=== PATIENT | female | born 2000 | race Caucasian/White ===

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

== ENCOUNTER 2021-07-15 22:13 | Emergency (ER) | payer OTHER ==
--- OUTSIDE RECORDS SUMMARY | 2021-07-15 22:20 | XMS REPORT | Continuity of Care Document ---
:2000 Author Organization [facility] t Address [address] [place] [address] Care Team Providers Name Role Phone Bernabe TOVAR Attending Clinician Unavailable Demond Fermin DO Attending Clinician Guy RICE R Attending Clinician Doctor Unassigned, Name Attending Clinician Unavailable Visit, Nurse Attending Clinician Unavailable Satinder WELCHP C Attending Clinician SATINDER C Attending Clinician Unavailable Manuelito MENDEZ Attending Clinician Faculty, Rmchp Mfm Attending Clinician Unavailable Aishwarya MENDEZ M Attending Clinician Ultrasound Attending Clinician Unavailable Lab Attending Clinician Unavailable Manuelito MENDEZ Admitting Clinician Payers Payer Name Policy Type Policy Number Effective Date Expiration Date Belinda LOVELL [id number] 2019 HEALTH 00:00:00 Problems Condition Condition Condition Status Onset Resolution Last Treating Co mments Source Name Details Category Date Date Treatment Clinician Date Disease Active U nivers care and care and 5-05 ity of examin[place] examin[place] 00 Medical immediatel immediatel Br anch y after y after delivery delivery Obesity Obesity Disease Active Univers (BMI (BMI 4-11 ity of 30-39.9) 30-39.9) 00:00: [place] 00 Medical Branch 37 weeks 37 weeks Disease Active 2020-0 Unive rs gestation gestation 4-11 ity of of of 00:00: [place] 00 [facility] Chlamydia Chlamydia Disease Active 2020-0 Overview: Univers infection infection 2-19 Pending ity of during during 00:00: MICHAEL -neg [place] 00 [facility] Gonorrhea Gonorrhea Disease Active 2020-0 Overview: Univers in in 2-19 MCIHAEL at ity of 00:[place]: [place] 00 [place] Medical -neg Branch Susceptibl Susceptibl Disease Active 2020-0 Overview : Univers e to e to 2-19 Address ity of varicella varicella 00:00: [place] (non-immun (non-immun 00 Me dical e), e), Branch currently currently Supervisio Supervisio Disease Active 2020-0 U nivers n of n of 2-18 ity of high-risk high-risk [place] [facility] with with Branch insufficie insufficie nt nt care care Over Over Disease Active 2020-0 Univers weight weight 2-18 ity of 00:00: [place] [facility] Multiparit Multiparit Disease Active 2020-0 U nivers y y 2-18 ity of 00:00: [place] [facility] History of History of Disease Active 2020-0 Overview : Univers bipolar bipolar 2-18 Not on ity of disorder disorder 00:00: meds x1 [place] year [facility] Branch History of History of Disease Active 2020-0 Overview : Univers depression depression 2-18 Not on it y of 00:00: meds x1 [place] year Medical Branch History of History of Disease Active 2020-0 Overview : Univers anxiety anxiety 2-18 Not on ity of 00:00: meds x1 [place] year [facility] Branch History of History of Disease Active 2020-0 Overview : Univers 2-18 Reports ity of delivery [place] 00:[place] 00 at [facility] 31weeks Branch ROR requested History of History of Disease Active 2020-0 U nivers ADHD ADHD 2-18 ity of 00:00: [place] [facility] Family Family Disease Active 2020-0 Overview: Univer s history of history of 2-18 Reports i ty of autism autism 00:00: cousins [place] [facility] History of History of Disease Active 2020-0 Overview : Univers polyhydram polyhydram 2-18 Reports i ty of nios nios 00:00: delivery [place] 00 at 31 Medical weeks Branch Allergies, Adverse Reactions, Alerts Allergy Allergy Status Severity Reaction(s) Onset Inactive Treating Comm ents Source Name Type Date Date Clinician Bee Propensi Active Anaphylaxis Uni vers Sting / ty to 2-18 ity of Venom adverse 00:00: [place] reaction 00 Medical s Branch BEE DRUG Active Anaphylaxis Unive rs STING / INGREDI -18 ity of VENOM 00:00: [place] 00 Medical Branch Milk Propensi Active Other - See Uni vers ty to comments 01-02 ity of adverse 00:00: [place] reaction 00 Medical s to Branch drug Soy Propensi Active Unknown - Unive rs ty to See comments 01-02 ity of adverse 00:00: [place] reaction 00 Medical s to Branch drug MILK DRUG Active Other-Cmnt Univer s INGREDI 01-02 ity of 00:00: [place] 00 Medical Branch SOY DRUG Active Unknown-Cmnt Univ ers INGREDI 01-02 ity of 00:00: [place] 00 [facility] Social History Social Habit Start Date Stop Date Quantity Comments Source ASSERTION 2019-03-20 University of 00:00:00 [facility] Exposure to Not sure [facility] SARS-CoV-2 [facility] (event) [place] Tobacco use and 2020-01-07 2020-01-07 Never used Universit y of exposure 00:00:00 00:00:00 [facility] Alcohol intake 2020-01-07 2020-01-07 Ex-drinker University of 00:00:00 00:00:00 (finding) [facility] History SDOH 2019-11-22 2019-11-22 11 University o f Education 00:00:00 00:00:00 [facility] Tobacco Comment 2013-06-10 2013-06-10 mom smokes Universit y of 00:00:00 00:00:00 outside [facility] Sex Assigned At [birth year] Universit y of 00:00:00 00:00:00 [facility] Smoking Status Start Date Stop Date Source Never smoker [facility] Medications Ordered Filled Start Stop Current Ordering Indication Dosage Frequency Signature Comments Components Source Medication Medication Date Date Medication? Clinician (SIG) Name Name etonogestre 2019- No [id number] 68mg Univers l 01-06- ity of (NEXPLANON) 16:00: 14:55 [place] implant 68 00 :00 Medical mg [place] etonogestre 2019- No [id number] 68mg 68 mg, Univers l 01-06- Subdermal, ity of (NEXPLANON) 16:00: 14:55 ONCE NOW, [place] implant 68 00 :00 1 dose, Medica l mg [place] [facility] 01/07/20 at 1100, Routine
Use approved by: MONOGRAM TECHNICIAN etonogestre 2019- No [id number] 68mg Univers l 01-06 ity of (NEXPLANON) 16:00: 14:55 [place] implant 68 00 :00 Medical [facility] etonogestre 2019- No [id number] 68mg 68 mg, Univers l 01-06 Subdermal, ity of (NEXPLANON) 16:00: 14:55 ONCE NOW, [place] implant 68 00 :00 1 dose, Medica l mg [place] [facility] 01/07/20 at 1100, Routine
Use approved by: MONOGRAM TECHNICIAN lisdexamfet 2020- No 50mg Take 50 mg Univers amine 11-22-12 by mouth ity of (VYVANSE) 12:42: 00:00 every [place] 50 mg 10 :00 morning. Medical capsule [place] ARIPiprazol 2019- No 2mg Take 2 mg Univers e (ABILIFY) 11-22-12 by mouth ity of 2 mg tablet 12:42: 00:00 daily. [place] as 10 :00 Medical [place] human 2019- Yes .5mL 0.5 mL, Univers papillomav 4-12 Intramuscu ity of vac,9-migel(P 12:26: lar, [place] F) 12 ONCE-PRIOR Medical (GARDASIL-9 TO [place] ) syringe DISCHARGE, 0.5 mL 1 dose, Starting 11/23/19 at 0726, Until Discontinu ed, Routine, Give vaccine prior to discharge varicella 2019- 2020- No .5mL 0.5 mL, Univ ers virus 11-22 04-13 Subcutaneo ity of vaccine 12:26: 16:35 , [place] live 12 :00 ONCE-PRIOR Medical (VARIVAX TO Branch (PF)) DISCHARGE, injection 1 dose, 0.5 mL Starting 11/23/19 at 0726, Until Discontinu ed, Routine, Give vaccine prior to discharge rho(D) 2020-0 Yes 300ug 300 mcg, Univer s immune 4-12 Intramuscu ity of globulin 03:56: lar, ONCE, [place] as (RHOGAM) 35 For 1 Medical syringe 300 dose, Branch mcg Conditiona l, Routine simethicone 2019-0 Yes 160mg 160 mg, Un dustin (GAS RELIEF 4-12 Oral, ity of (SIMETHICON 03:56: PC+HSPRN, [place] E)) 28 Starting Medical chewable Sat Branch tablet 160 11/22/19 at mg 2256, Until Discontinu ed, Routine, Gas HYDROcodone 2020-0 Yes 2{tbl} 2 tablet, Univers -acetaminop 4-12 Oral, ity of hen (NORCO 03:56: Q6HPRN, [place] 5) 5-325 mg 27 Starting Medi ash[place] tablet 2 Sat Branch tablet 11/22/19 at 2256, Until Discontinu ed, Routine, Pain (scale 7-10), If uncontroll ed by Ibuprofen HYDROcodone 2020-0 Yes 1{tbl} 1 tablet, Univers -acetaminop 4-12 Oral, ity of hen (NORCO 03:56: Q6HPRN, [place] 5) 5-325 mg 27 Starting Medi ash[place] tablet 1 Sat Branch tablet 11/22/19 at 2256, Until Discontinu ed, Routine, Pain (scale 4-6), If uncontroll ed by Ibuprofen ibuprofen 2020-0 Yes 600mg 600 mg, Univ ers (IBU) 4-12 Oral, ity of tablet 600 03:56: Q6HPRN, [place] mg 27 Starting Medical Sat Branch 11/22/19 at 2256, Until Discontinu ed, Routine, Pain (scale 1-3) diphenhydrA 2019-0 Yes 25mg 25 mg, IV U nivers MINE-0.9 % 4-12 Piggyback, ity of sod.chlr 03:56: Administer [place] (BENADRYL) 27 over 30 Medica l 25 mg/50 mL Minutes, Bran ch piggyback Q6HPRN, 1 25 mg dose, Starting 11/22/19 at 2256, Until Discontinu ed, Routine, Itching diphenhydrA 2020-0 Yes 25mg 25 mg, Univ ers MINE 4-12 Oral, ity of (BENADRYL) 03:56: Q6HPRN, [place] tablet 25 27 Starting Medica l mg Sat Branch 11/22/19 at 2256, Until Discontinu ed, Routine, Sleep, Itching ondansetron 2020-0 Yes 4mg 4 mg, Slow Univers (ZOFRAN 4-12 IV Push, ity of (PF)) 03:56: Q8HPRN, [place] injection 4 27 Starting Medi ashley mg Sat Branch 11/22/19 at 2256, Until Discontinu ed, Routine, Nausea and Vomiting (N/V) bisacodyL 2020-0 Yes 10mg 10 mg, Univer s (DULCOLAX) 4-12 Rectal, ity of suppository 03:56: QDAILYPRN, [place] 10 mg 27 Starting Medical Sat Branch 11/22/19 at 2256, Until Discontinu ed, Routine, Constipati on docusate 2020-0 Yes 240mg 240 mg, Unive rs calcium 4-12 Oral, ity of (SURFAK) 03:56: QDAILYPRN, [place] capsule 240 27 Starting Medi ashley mg Sat Branch 11/22/19 at 2256, Until Discontinu ed, Routine, Constipati on magnesium 2020-0 Yes 30mL 30 mL, Univer s hydroxide 4-12 Oral, ity of (MILK OF 03:56: QDAILYPRN, [place] MAGNESIA) 27 Starting Medica l 400 mg/5 mL [facility] Branch suspension 11/22/19 at 30 mL 2256, Until Discontinu ed, Routine, Constipati on naloxone 2020-0 2020- No .4mg 0.4 mg, Unive rs (NARCAN) -12 04-14 Slow IV ity of injection 00:13: 00:12 Push, PRN [place] 0.4 mg 34 :34 - SEE Medical INSTRUCTIO Branch NS, Starting 11/22/19 at 1913, Until 11/24/19 at 1912, Routine, Analgesia Recovery 2020-0 Yes [id number] 1{tbl} Take 1 Univers vitamin 4-12 tablet by ity of w/FA tablet 00:00: mouth [place] 00 daily. Medical Branch docusate 2020-0 Yes [id number] 240mg Take 1 U nivers calcium 240 4-12 capsule by it y of mg capsule 00:00: mouth once [place] 00 daily as Medical needed for Branch Constipati on. ferrous 2020-0 Yes [id number] 325mg Take 1 Un dustin sulfate 325 4-12 tablet by ity of mg (65 mg 00:00: mouth 2 [place] iron) 00 (two) Medical tablet times Branch daily. ibuprofen 2020-0 Yes [id number] 600mg Take 1 Univers 600 mg 4-12 tablet by ity of tablet 00:00: mouth [place] 00 every 6 Medical (six) Branch hours as needed (Pain). Take with food or milk. 2020-0 Yes [id number] 1{tbl} Take 1 Univers vitamin 4-12 tablet by ity of w/FA tablet 00:00: mouth [place] 00 daily. Medical Branch docusate 2020-0 Yes [id number] 240mg Take 1 U nivers calcium 240 4-12 capsule by it y of mg capsule 00:00: mouth once [place] 00 daily as Medical needed for Branch Constipati on. ferrous 2020-0 Yes [id number] 325mg Take 1 Un dustin sulfate 325 4-12 tablet by ity of mg (65 mg 00:00: mouth 2 [place] iron) 00 (two) Medical tablet times Branch daily. ibuprofen 2020-0 Yes [id number] 600mg Take 1 Univers 600 mg 4-12 tablet by ity of tablet 00:00: mouth [place] 00 every 6 Medical (six) Branch hours as needed (Pain). Take with food or milk. 2020-0 Yes [id number] 1{tbl} Take 1 Univers vitamin 4-12 tablet by ity of w/FA tablet 00:00: mouth [place] 00 daily. Medical Branch docusate 2020-0 Yes [id number] 240mg Take 1 U nivers calcium 240 4-12 capsule by it y of mg capsule 00:00: mouth once [place] 00 daily as Medical needed for Branch Constipati on. ferrous 2020-0 Yes [id number] 325mg Take 1 Un dustin sulfate 325 4-12 tablet by ity of mg (65 mg 00:00: mouth 2 [place] iron) 00 (two) Medical tablet times Branch daily. ibuprofen 2020-0 Yes [id number] 600mg Take 1 Univers 600 mg 4-12 tablet by ity of tablet 00:00: mouth [place] 00 every 6 Medical (six) Branch hours as needed (Pain). Take with food or milk. 2020-0 Yes [id number] 1{tbl} Take 1 Univers vitamin 4-12 tablet by ity of w/FA tablet 00:00: mouth [place] 00 daily. Medical Branch docusate 2020-0 Yes [id number] 240mg Take 1 U nivers calcium 240 4-12 capsule by it y of mg capsule 00:00: mouth once [place] 00 daily as Medical needed for Branch Constipati on. ferrous 2020-0 Yes [id number] 325mg Take 1 Un dustin sulfate 325 4-12 tablet by ity of mg (65 mg 00:00: mouth 2 [place] iron) 00 (two) Medical tablet times Branch daily. ibuprofen 2020-0 Yes [id number] 600mg Take 1 Univers 600 mg 4-12 tablet by ity of tablet 00:00: mouth [place] 00 every 6 Medical (six) Branch hours as needed (Pain). Take with food or milk. 2020-0 Yes [id number] 1{tbl} Take 1 Univers vitamin 4-12 tablet by ity of w/FA tablet 00:00: mouth [place] 00 daily. Medical Branch docusate 2020-0 Yes [id number] 240mg Take 1 U nivers calcium 240 4-12 capsule by it y of mg capsule 00:00: mouth once [place] 00 daily as Medical needed for Branch Constipati on. ferrous 2020-0 Yes [id number] 325mg Take 1 Un dustin sulfate 325 4-12 tablet by ity of mg (65 mg 00:00: mouth 2 [place] iron) 00 (two) Medical tablet times Branch daily. ibuprofen 2020-0 Yes [id number] 600mg Take 1 Univers 600 mg 4-12 tablet by ity of tablet 00:00: mouth [place] 00 every 6 Medical (six) Branch hours as needed (Pain). Take with food or milk. 2020-0 Yes [id number] 1{tbl} Take 1 Univers vitamin 4-12 tablet by ity of w/FA tablet 00:00: mouth [place] 00 daily. Medical Branch docusate 2020-0 Yes [id number] 240mg Take 1 U nivers calcium 240 4-12 capsule by it y of mg capsule 00:00: mouth once [place] 00 daily as Medical needed for Branch Constipati on. ferrous 2020-0 Yes [id number] 325mg Take 1 Un dustin sulfate 325 4-12 tablet by ity of mg (65 mg 00:00: mouth 2 [place] iron) 00 (two) Medical tablet times Branch daily. ibuprofen 2020-0 Yes [id number] 600mg Take 1 Univers 600 mg 4-12 tablet by ity of tablet 00:00: mouth [place] 00 every 6 Medical (six) Branch hours as needed (Pain). Take with food or milk. 2020-0 Yes [id number] 1{tbl} Take 1 Univers vitamin 4-12 tablet by ity of w/FA tablet 00:00: mouth [place] 00 daily. Medical Branch docusate 2020-0 Yes [id number] 240mg Take 1 U nivers calcium 240 4-12 capsule by it y of mg capsule 00:00: mouth once [place] 00 daily as Medical needed for Branch Constipati on. ferrous 2020-0 Yes [id number] 325mg Take 1 Un dustin sulfate 325 4-12 tablet by ity of mg (65 mg 00:00: mouth 2 [place] iron) 00 (two) Medical tablet times Branch daily. ibuprofen 2020-0 Yes [id number] 600mg Take 1 Univers 600 mg 4-12 tablet by ity of tablet 00:00: mouth [place] 00 every 6 Medical (six) Branch hours as needed (Pain). Take with food or milk. HYDROcodone 2020- No [id number] 1{tbl} Take 1 Univers -acetaminop 4-12 04-20 tablet by it y of hen 5-325 00:00: 04:59 mouth [place] mg tablet 00 :00 every 6 Medical (six) Branch hours as needed (for pain) for up to 7 days. Do not exceed 3 grams of acetaminop hen in 24 hours. HYDROcodone 2019- 2020- No [id number] 1{tbl} Take 1 Univers -acetaminop 4-12 04-20 tablet by it y of hen 5-325 00:00: 04:59 mouth [place] mg tablet 00 :00 every 6 Medical (six) Branch hours as needed (for pain) for up to 7 days. Do not exceed 3 grams of acetaminop hen in 24 hours. lactated 2020- No 1000mL at 125 Univ ers ringers IV 4-11 04-12 mL/hr, ity of infusion 23:00: 03:56 1,000 mL, [place] 1,000 mL 00 :36 IV Medical Infusion, Branch CONTINUOUS , Starting 11/22/19 at 1800, Until 11/22/19 at 2256, Routine sodium 2019-0 2020- No 30mL 30 mL, Univers citrate-cit 11-21 Oral, ity of ramila acid 22:47: 22:57 PRE-PROCED [place] (BICITRA) 25 :00 URE ONCE, Medic al 500-334 1 dose, Branch mg/5 mL Starting solution 30 Sat mL 11/22/19 at 1747, Until Discontinu ed, Routine, Surgery ceFAZolin No 2000mg 2 g (2,000 Univers in dextrose 11-21 mg), IV ity of (iso-os) 22:47: 22:57 Piggyback, [place] (ANCEF) 2 25 :00 O.R. Medical gram/100 mL HOLDING Branc h Piggyback 2 ONCE, 1 g dose, Starting 11/22/19 at 1747, Until Discontinu ed, 100 mL
Reas on for Anti-Infec tive: Surgical Prophylaxi s
Surgi ashley Prophylaxi s: MONOGRAM TECHNICIAN
Duration of therapy: within 24 hours of surgery lactated 2019-0 2020- No 500mL at 999 Unive rs ringers IV 11-21-11 mL/hr, 500 it y of infusion 20:00: 20:40 mL, IV [place] 500 mL 00 :00 Infusion, Medical ONCE, 1 Branch dose, 11/22/19 at 1500, Routine D5W-LR IV 2019-0 2020- No 1000mL at 125 Uni vers infusion 11-21 04-12 mL/hr, IV ity o f 1,000 mL 19:00: 03:56 Infusion, [place] 00 :36 CONTINUOUS Medical , Starting Branch 11/22/19 at 1400, Until 11/22/19 at 2256, Routine sodium 2019-0 2020- No 30mL 30 mL, Univers citrate-cit 11-21 Oral, ity of ramila acid 18:50: 21:27 PRE-PROCED [place] (BICITRA) 33 :00 URE ONCE, Medic al 500-334 1 dose, Branch mg/5 mL Starting solution 30 Sat mL 11/22/19 at 1350, Until 11/22/19 at 1627, Routine, Surgery/Pr ocedure LR 1000 mL 2020-0 2020- No 2mU/min 2-40 Uni vers + oxytocin 11-21 04-12 zhanna-unit it y of 20 units IV 18:49: 03:56 s/min [place] Solution 40 :36 (6-120 Medical mL/hr), IV Branch Infusion, TITRATE, Oxytocin Induction / Augmentati on of Labor, Starting 11/22/19 at 1349
In fuse IV through a controlled infusion pump at a proximal port on the peripheral IV line.&nbsp ; Sta rt at 2 zhanna-unit s/min and increase by 2 zhanna-unit s/min every 20 minutes according to oxytocin policy 7.11.52.&n bsp; Going over 20 zhanna-unit s/min requires faculty approval.& nbsp;&nbsp ;Max 40 zhanna-unit s/min.
2020-0 Yes 1{tbl} Take 1 Unive rs Vit-Iron 3-02 tablet by ity of Fumarate-FA 00:00: mouth [place] (RIGHT STEP 00 daily. Medica l Branch VITAMINS) 27 mg iron- 0.8 mg per tablet ferrous 2020-0 Yes 325mg Take 1 Univers sulfate 325 3-02 tablet by ity of mg (65 mg 00:00: mouth [place] iron) 00 daily. Medical tablet Branch 2020-0 Yes 1{tbl} Take 1 Unive rs Vit-Iron 3-02 tablet by ity of Fumarate-FA 00:00: mouth [place] (RIGHT STEP 00 daily. Medica l Branch VITAMINS) 27 mg iron- 0.8 mg per tablet ferrous 2020-0 Yes 325mg Take 1 Univers sulfate 325 3-02 tablet by ity of mg (65 mg 00:00: mouth [place] iron) 00 daily. Medical tablet Branch 2020-0 Yes 1{tbl} Take 1 Unive rs Vit-Iron 3-02 tablet by ity of Fumarate-FA 00:00: mouth [place] (RIGHT STEP 00 daily. Medica l Branch VITAMINS) 27 mg iron- 0.8 mg per tablet ferrous 2020-0 Yes 325mg Take 1 Univers sulfate 325 3-02 tablet by ity of mg (65 mg 00:00: mouth [place] iron) 00 daily. Medical tablet Branch 2020-0 Yes 1{tbl} Take 1 Unive rs Vit-Iron 3-02 tablet by ity of Fumarate-FA 00:00: mouth [place] (RIGHT STEP 00 daily. Medica l [facility] Branch VITAMINS) 27 mg iron- 0.8 mg per tablet ferrous 2020-0 Yes 325mg Take 1 Univers sulfate 325 3-02 tablet by ity of mg (65 mg 00:00: mouth [place] iron) 00 daily. Medical tablet Branch 2020-0 Yes 1{tbl} Take 1 Unive rs Vit-Iron 3-02 tablet by ity of Fumarate-FA 00:00: mouth [place] (RIGHT STEP 00 daily. Medica l [facility] Branch VITAMINS) 27 mg iron- 0.8 mg per tablet ferrous 2020-0 Yes 325mg Take 1 Univers sulfate 325 3-02 tablet by ity of mg (65 mg 00:00: mouth [place] iron) 00 daily. Medical tablet Branch 2020-0 Yes 1{tbl} Take 1 Unive rs Vit-Iron 3-02 tablet by ity of Fumarate-FA 00:00: mouth [place] (RIGHT STEP 00 daily. Medica l [facility] Branch VITAMINS) 27 mg iron- 0.8 mg per tablet ferrous 2020-0 Yes 325mg Take 1 Univers sulfate 325 3-02 tablet by ity of mg (65 mg 00:00: mouth [place] iron) 00 daily. Medical tablet Branch 2020-0 Yes 1{tbl} Take 1 Unive rs Vit-Iron 3-02 tablet by ity of Fumarate-FA 00:00: mouth [place] (RIGHT STEP 00 daily. Medica l Branch VITAMINS) 27 mg iron- 0.8 mg per tablet ferrous 2020-0 Yes 325mg Take 1 Univers sulfate 325 3-02 tablet by ity of mg (65 mg 00:00: mouth [place] iron) 00 daily. Medical tablet Branch 2020-0 Yes 1{tbl} Take 1 Unive rs Vit-Iron 3-02 tablet by ity of Fumarate-FA 00:00: mouth [place] (RIGHT STEP 00 daily. Medica l Branch VITAMINS) 27 mg iron- 0.8 mg per tablet ferrous 2020-0 Yes 325mg Take 1 Univers sulfate 325 3-02 tablet by ity of mg (65 mg 00:00: mouth [place] iron) 00 daily. Medical tablet Branch Yes 1{tbl} Take 1 Unive rs Vit-Iron 3-02 tablet by ity of Fumarate-FA 00:00: mouth [place] (RIGHT STEP 00 daily. Medica l Branch VITAMINS) 27 mg iron- 0.8 mg per tablet ferrous Yes 325mg Take 1 Univers sulfate 325 3-02 tablet by ity of mg (65 mg 00:00: mouth [place] iron) 00 daily. Medical tablet Branch 2020- No 1{tbl} Take 1 Univ ers Vit-Iron 3-02 04-12 tablet by ity o f Fumarate-FA 00:00: 00:00 mouth [place] (RIGHT STEP 00 :00 daily. Medica l Branch VITAMINS) 27 mg iron- 0.8 mg per tablet ferrous 2019- No 325mg Take 1 Univer s sulfate 325 3-02 04-12 tablet by it y of mg (65 mg 00:00: 00:00 mouth [place] iron) 00 :00 daily. Medical tablet Branch cefTRIAXone 2019- No 250mg Univ ers (ROCEPHIN) 2-02 10-20 ity of injection 17:00: 15:52 [place] 250 mg 00 :00 Medical Branch cefTRIAXone 2019- No 250mg 250 mg, U nivers (ROCEPHIN) 10-02- Intramuscu it y of injection 17:00: 15:52 lar, ONCE, [place] 250 mg 00 :00 1 dose, Medical [place] Branch 10/02/19 at 1100, GILBERT
Re ason for Anti-Infec tive: Documented Infection< br>Documen gianna Infection Site: Other
O ther site: vagina
Duration of Therapy: Other (see Comments) azithromyci 2019- No [id number] 1000mg Take 2 Univers n 500 mg 2-19 -20 tablets by ity of tablet 00:00: 05:59 mouth once [place] 00 :00 now for 1 Medical dose. Branch azithromyci 2020- No [id number] 1000mg Take 2 Univers n 500 mg 2-19 -20 tablets by ity of tablet 00:00: 05:59 mouth once [place] 00 :00 now for 1 Medical dose. Branch ARIPiprazol Yes 2mg Take 2 mg U nivers e (ABILIFY) 2-18 by mouth ity of 2 mg tablet 19:58: daily. [place] [address] Medical Branch lisdexamfet 2020-0 Yes 50mg Take 50 mg Univers amine 2-18 by mouth ity of (VYVANSE) 19:58: every [place] 50 mg 26 morning. Medical capsule Branch ARIPiprazol 2020-0 Yes 2mg Take 2 mg U nivers e (ABILIFY) 2-18 by mouth ity of 2 mg tablet 19:58: daily. [place] [address] Medical Branch lisdexamfet 2020-0 Yes 50mg Take 50 mg Univers amine 2-18 by mouth ity of (VYVANSE) 19:58: every [place] 50 mg 26 morning. Medical capsule Branch ARIPiprazol 2020-0 Yes 2mg Take 2 mg U nivers e (ABILIFY) 2-18 by mouth ity of 2 mg tablet 19:58: daily. [address] Branch lisdexamfet 2020-0 Yes 50mg Take 50 mg Univers amine 2-18 by mouth ity of (VYVANSE) 19:58: every [place] 50 mg 26 morning. Medical capsule Branch ARIPiprazol 2020-0 Yes 2mg Take 2 mg U nivers e (ABILIFY) 2-18 by mouth ity of 2 mg tablet 19:58: daily. [address] Branch lisdexamfet 2020-0 Yes 50mg Take 50 mg Univers amine 2-18 by mouth ity of (VYVANSE) 19:58: every [place] 50 mg 26 morning. Medical capsule Branch ARIPiprazol 2020-0 Yes 2mg Take 2 mg U nivers e (ABILIFY) 2-18 by mouth ity of 2 mg tablet 19:58: daily. [address] Branch lisdexamfet 2020-0 Yes 50mg Take 50 mg Univers amine 2-18 by mouth ity of (VYVANSE) 19:58: every [place] 50 mg 26 morning. Medical capsule Branch ARIPiprazol 2020-0 Yes 2mg Take 2 mg U nivers e (ABILIFY) 2-18 by mouth ity of 2 mg tablet 19:58: daily. [place] 26 Medical Branch lisdexamfet 2020-0 Yes 50mg Take 50 mg Univers amine 2-18 by mouth ity of (VYVANSE) 19:58: every [place] 50 mg 26 morning. Medical capsule Branch ARIPiprazol 2020-0 Yes 2mg Take 2 mg U nivers e (ABILIFY) 2-18 by mouth ity of 2 mg tablet 19:58: daily. [address] Branch lisdexamfet 2020-0 Yes 50mg Take 50 mg Univers amine 2-18 by mouth ity of (VYVANSE) 19:58: every [place] 50 mg 26 morning. Medical capsule Branch ARIPiprazol 2020-0 Yes 2mg Take 2 mg U nivers e (ABILIFY) 2-18 by mouth ity of 2 mg tablet 19:58: daily. [address] Branch lisdexamfet 2020-0 Yes 50mg Take 50 mg Univers amine 2-18 by mouth ity of (VYVANSE) 19:58: every [place] 50 mg 26 morning. Medical capsule Branch ARIPiprazol 2020-0 Yes 2mg Take 2 mg U nivers e (ABILIFY) 2-18 by mouth ity of 2 mg tablet 19:58: daily. [address] Branch lisdexamfet 2019-0 Yes 50mg Take 50 mg Univers amine 2-18 by mouth ity of (VYVANSE) 19:58: every [place] 50 mg 26 morning. Medical capsule Branch ARIPiprazol 2020-0 Yes 2mg Take 2 mg U nivers e (ABILIFY) 2-18 by mouth ity of 2 mg tablet 19:58: daily. [address] Branch lisdexamfet 2020-0 Yes 50mg Take 50 mg Univers amine 2-18 by mouth ity of (VYVANSE) 19:58: every [place] 50 mg 26 morning. Medical capsule Branch ARIPiprazol 2020-0 Yes 2mg Take 2 mg U nivers e (ABILIFY) 2-18 by mouth ity of 2 mg tablet 19:58: daily. [address] Branch lisdexamfet 2020-0 Yes 50mg Take 50 mg Univers amine 2-18 by mouth ity of (VYVANSE) 19:58: every [place] 50 mg 26 morning. Medical capsule Branch ARIPiprazol 2020-0 Yes 2mg Take 2 mg U nivers e (ABILIFY) 2-18 by mouth ity of 2 mg tablet 19:58: daily. [place] [address] Medical Branch lisdexamfet 2020-0 Yes 50mg Take 50 mg Univers amine 2-18 by mouth ity of (VYVANSE) 19:58: every [place] 50 mg 26 morning. Medical capsule Branch ARIPiprazol 2020-0 Yes 2mg Take 2 mg U nivers e (ABILIFY) 2-18 by mouth ity of 2 mg tablet 19:58: daily. [place] [address] Medical Branch lisdexamfet 2020-0 Yes 50mg Take 50 mg Univers amine 2-18 by mouth ity of (VYVANSE) 19:58: every [place] 50 mg 26 morning. Medical capsule Branch ARIPiprazol 2020-0 Yes 2mg Take 2 mg U nivers e (ABILIFY) 2-18 by mouth ity of 2 mg tablet 19:58: daily. [address] Branch lisdexamfet 2020-0 Yes 50mg Take 50 mg Univers amine 2-18 by mouth ity of (VYVANSE) 19:58: every [place] 50 mg 26 morning. Medical capsule Branch ARIPiprazol 2020-0 Yes 2mg Take 2 mg U nivers e (ABILIFY) 2-18 by mouth ity of 2 mg tablet 19:58: daily. [address] lisdexamfet 2020-0 Yes 50mg Take 50 mg Univers amine 2-18 by mouth ity of (VYVANSE) 19:58: every [place] 50 mg 26 morning. Medical capsule Branch ARIPiprazol 2020-0 Yes 2mg Take 2 mg U nivers e (ABILIFY) 2-18 by mouth ity of 2 mg tablet 19:58: daily. [address] Branch lisdexamfet 2020-0 Yes 50mg Take 50 mg Univers amine 2-18 by mouth ity of (VYVANSE) 19:58: every [place] 50 mg 26 morning. Medical capsule Branch ARIPiprazol 2020-0 Yes 2mg Take 2 mg U nivers e (ABILIFY) 2-18 by mouth ity [facility] 2 mg tablet 19:58: [place]. [place] [facility] lisdexamfet 2019-0 Yes 50mg Take 50 mg Univers amine 2-18 by mouth ity of (VYVANSE) 19:58: every [place] 50 mg 26 morning. Medical capsule Branch ARIPiprazol 2019-0 Yes 2mg Take 2 mg U nivers e (ABILIFY) 2-18 by mouth ity of 2 mg tablet 19:58: daily. [facility] 26 Medical Branch lisdexamfet 2019-0 Yes 50mg Take 50 mg Univers amine 2-18 by mouth ity of (VYVANSE) 19:58: every [place] 50 mg 26 morning. Medical capsule Branch ARIPiprazol 2019-0 Yes 2mg Take 2 mg U nivers e (ABILIFY) 2-18 by mouth ity of 2 mg tablet 19:58: daily. [facility] 26 Medical Branch lisdexamfet 2019-0 Yes 50mg Take 50 mg Univers amine 2-18 by mouth ity of (VYVANSE) 19:58: every [place] 50 mg 26 morning. Medical capsule Branch ARIPiprazol 2019-0 Yes 2mg Take 2 mg U nivers e (ABILIFY) 2-18 by mouth ity of 2 mg tablet 19:58: daily. [place] [address] Medical Branch lisdexamfet 2019-0 Yes 50mg Take 50 mg Univers amine 2-18 by mouth ity of (VYVANSE) 19:58: every [place] 50 mg 26 morning. Medical capsule Branch lisdexamfet 0 Yes 50mg Take 50 mg Univers amine 5-05 by mouth ity of (VYVANSE) 14:18: every [place] 50 mg 37 morning. Medical capsule Branch ARIPiprazol 0 Yes 2mg Take 2 mg U nivers e (ABILIFY) 5-05 by mouth ity of 2 mg tablet 14:18: daily. [facility] 37 Medical Branch Somatropin Yes [id number] 3mg inject 3 Univers (NORDITROPI 5-05 mg under ity of N FLEXPRO) 00:00: the skin [place] 15 mg/1.5 00 daily. Medical mL (10 Branch mg/mL) PnIj Somatropin Yes [id number] 3mg inject 3 Univers (NORDITROPI 5-05 mg under ity of N FLEXPRO) 00:00: the [place] 15 mg/1.5 00 daily. Medical mL (10 Branch mg/mL) PnIj Somatropin 2015-0 Yes [id number] 3mg inject 3 Univers (NORDITROPI 5-05 mg under ity of N FLEXPRO) 00:00: the skin [place] 15 mg/1.5 00 daily. Medical mL (10 Branch mg/mL) PnIj Somatropin 2014-0 Yes [id number] 3mg inject 3 Univers (NORDITROPI 5-05 mg under ity of N FLEXPRO) 00:00: the skin [place] 15 mg/1.5 00 daily. Medical mL (10 Branch mg/mL) PnIj Somatropin 2014-0 Yes [id number] 3mg inject 3 Univers (NORDITROPI 5-05 mg under ity of N FLEXPRO) 00:00: the [place] 15 mg/1.5 00 daily. Medical mL (10 Branch mg/mL) PnIj Somatropin 2014-0 Yes [id number] 3mg inject 3 Univers (NORDITROPI 5-05 mg under ity of N FLEXPRO) 00:00: the [place] 15 mg/1.5 00 daily. Medical mL (10 Branch mg/mL) PnIj Somatropin 2014-0 Yes [id number] 3mg inject 3 Univers (NORDITROPI 5-05 mg under ity of N FLEXPRO) 00:00: the [place] 15 mg/1.5 00 daily. Medical mL (10 Branch mg/mL) PnIj Somatropin 2015-0 Yes [id number] 3mg inject 3 Univers (NORDITROPI 5-05 mg under ity of N FLEXPRO) 00:00: the [place] 15 mg/1.5 00 daily. Medical mL (10 Branch mg/mL) PnIj Somatropin 2015-0 Yes [id number] 3mg inject 3 Univers (NORDITROPI 5-05 mg under ity of N FLEXPRO) 00:00: the [place] 15 mg/1.5 00 daily. Medical mL (10 Branch mg/mL) PnIj Somatropin 2015-0 Yes [id number] 3mg inject 3 Univers (NORDITROPI 5-05 mg under ity of N FLEXPRO) 00:00: the [place] 15 mg/1.5 00 daily. Medical mL (10 Branch mg/mL) PnIj Somatropin 2015-0 Yes [id number] 3mg inject 3 Univers (NORDITROPI 5-05 mg under ity of N FLEXPRO) 00:00: the [place] 15 mg/1.5 00 daily. Medical mL (10 Branch mg/mL) PnIj Somatropin Yes [id number] 3mg inject 3 Univers (NORDITROPI 5-05 mg under ity of N FLEXPRO) 00:00: the [place] 15 mg/1.5 00 daily. Medical mL (10 Branch mg/mL) PnIj Somatropin Yes [id number] 3mg inject 3 Univers (NORDITROPI 5-05 mg under ity of N FLEXPRO) 00:00: the skin [place] 15 mg/1.5 00 daily. Medical mL (10 Branch mg/mL) PnIj Somatropin Yes [id number] 3mg inject 3 Univers (NORDITROPI 5-05 mg under ity of N FLEXPRO) 00:00: the skin [place] 15 mg/1.5 00 daily. Medical mL (10 Branch mg/mL) PnIj Somatropin Yes [id number] 3mg inject 3 Univers (NORDITROPI 5-05 mg under ity of N FLEXPRO) 00:00: the skin [place] 15 mg/1.5 00 daily. Medical mL (10 Branch mg/mL) PnIj Somatropin Yes [id number] 3mg inject 3 Univers (NORDITROPI 5-05 mg under ity of N FLEXPRO) 00:00: the skin [place] 15 mg/1.5 00 daily. Medical mL (10 Branch mg/mL) PnIj Somatropin Yes [id number] 3mg inject 3 Univers (NORDITROPI 5-05 mg under ity of N FLEXPRO) 00:00: the [place] 15 mg/1.5 00 daily. Medical mL (10 Branch mg/mL) PnIj Somatropin 2014- Yes [id number] 3mg inject 3 Univers (NORDITROPI 5-05 mg under ity of N FLEXPRO) 00:00: the skin [place] 15 mg/1.5 00 daily. Medical mL (10 Branch mg/mL) PnIj Somatropin Yes [id number] 3mg inject 3 Univers (NORDITROPI 5-05 mg under ity of N FLEXPRO) 00:00: the skin [place] 15 mg/1.5 00 daily. Medical mL (10 Branch mg/mL) PnIj Somatropin Yes [id number] 3mg inject 3 Univers (NORDITROPI 5-05 mg under ity of N FLEXPRO) 00:00: the skin [place] 15 mg/1.5 00 daily. Medical mL (10 Branch mg/mL) PnIj Somatropin 2014- Yes [id number] 3mg inject 3 Univers (NORDITROPI 5-05 mg under ity of N FLEXPRO) 00:00: the skin [place] 15 mg/1.5 00 daily. Medical mL (10 Branch mg/mL) PnIj Somatropin 2020- No [id number] 3mg inject 3 Univers (NORDITROPI 5-05 04-12 mg under ity of N FLEXPRO) 00:00: 00:00 [place] 15 mg/1.5 00 :00 daily. Medical mL (10 Branch mg/mL) PnIj acetaminoph 2013-08 Yes Univer s en-codeine 1-25 ity of (TYLENOL 00:00: [place] #3) 300-30 00 Medical mg tablet Branch acetaminoph 2013-08 Yes Univer s en-codeine 1-25 ity of (TYLENOL 00:00: [place] #3) 300-30 00 Medical mg tablet Branch acetaminoph 2013-08 Yes Univer s en-codeine 1-25 ity of (TYLENOL 00:00: [place] #3) 300-30 00 Medical mg tablet Branch acetaminoph 2013-08 Yes Univer s en-codeine 1-25 ity of (TYLENOL 00:00: [place] #3) 300-30 00 Medical mg tablet Branch acetaminoph 2013-08 Yes Univer s en-codeine 1-25 ity of (TYLENOL 00:00: [place] #3) 300-30 00 Medical mg tablet Branch acetaminoph 2013-08 Yes Univer s en-codeine 1-25 ity of (TYLENOL 00:00: [place] #3) 300-30 00 Medical mg tablet Branch acetaminoph 2013-08 Yes Univer s en-codeine 1-25 ity of (TYLENOL 00:00: [place] #3) 300-30 00 Medical mg tablet Branch acetaminoph 2013-08 Yes Univer s en-codeine 1-25 ity of (TYLENOL 00:00: [place] #3) 300-30 00 Medical mg tablet Branch acetaminoph 2013-08 Yes Univer s en-codeine 1-25 ity of (TYLENOL 00:00: [place] #3) 300-30 00 Medical mg tablet Branch acetaminoph 2013-08 Yes Univer s en-codeine 1-25 ity of (TYLENOL 00:00: [place] #3) 300-30 00 Medical mg tablet Branch acetaminoph 2013-08 Yes Univer s en-codeine 1-25 ity of (TYLENOL 00:00: [place] #3) 300-30 00 Medical mg tablet Branch acetaminoph 2013-08 Yes Univer s en-codeine 1-25 ity of (TYLENOL 00:00: [place] #3) 300-30 00 Medical mg tablet Branch acetaminoph 2013-08 Yes Univer s en-codeine 1-25 ity of (TYLENOL 00:00: [place] #3) 300-30 00 Medical mg tablet Branch acetaminoph 2013-08 Yes Univer s en-codeine 1-25 ity of (TYLENOL 00:00: [place] #3) 300-30 00 Medical mg tablet Branch acetaminoph 2013-08 Yes Univer s en-codeine 1-25 ity of (TYLENOL 00:00: [place] #3) 300-30 00 Medical mg tablet Branch acetaminoph 2013-08 Yes Univer s en-codeine 1-25 ity of (TYLENOL 00:00: [place] #3) 300-30 00 Medical mg tablet Branch acetaminoph 2013-08 Yes Univer s en-codeine 1-25 ity of (TYLENOL 00:00: [place] #3) 300-30 00 Medical mg tablet Branch acetaminoph 2013-08 Yes Univer s en-codeine 1-25 ity of (TYLENOL 00:00: [place] #3) 300-30 00 Medical mg tablet Branch acetaminoph 2013-08 Yes Univer s en-codeine 1-25 ity of (TYLENOL 00:00: [place] #3) 300-30 00 Medical mg tablet Branch acetaminoph 2013-08 Yes Univer s en-codeine 1-25 ity of (TYLENOL 00:00: [place] #3) 300-30 00 Medical mg tablet Branch acetaminoph 2013-08 Yes Univer s en-codeine 09-06 ity of (TYLENOL 00:00: [place] #3) 300-30 00 Medical mg tablet Branch acetaminoph 2013-08 2020- No Unive rs en-codeine 09-0612 ity of (TYLENOL 00:00: 00:00 [place] #3) 300-30 00 :00 Medical mg tablet Branch Immunizations Ordered Filled Immunization Date Status Comments [facility] e Immunization Name Name Varicella 2019-11-24 Completed University of (varivax)(chicken 00:00:00 [place] M edical pox) Branch Varicella 2019-11-24 Completed University of (varivax)(chicken 00:00:00 [place] M edical pox) Branch Varicella 2019-11-24 Completed University of (varivax)(chicken 00:00:00 [place] M edical pox) Branch Varicella 2019-11-24 Completed University of (varivax)(chicken 00:00:00 [place] M edical pox) Branch Varicella 2019-11-24 Completed University of (varivax)(chicken 00:00:00 [place] M edical pox) Branch Varicella 2019-11-24 Completed University of (varivax)(chicken 00:00:00 [place] M edical pox) Branch Varicella 2019-11-24 Completed University of (varivax)(chicken 00:00:00 [place] M edical pox) Branch Influenza Virus 2019-09-30 Completed Universit y of Vaccine [facility] .5 mL 00:00:00 [facility] 6+ MO [place] Tdap 2019-09-30 Completed University of 00:00:00 [place] [facility] Influenza Virus 2019-09-30 Completed Universit y of Vaccine Quad .5 mL 00:00:00 [facility] 6+ MO Branch Tdap 2019-09-30 Completed University of 00:00:00 [place] [facility] Influenza Virus 2019-09-30 Completed Universit y of Vaccine [facility] .5 mL 00:00:00 [facility] 6+ MO Branch Tdap 2019-09-30 Completed University of 00:00:00 [place] [facility] Influenza Virus 2019-09-30 Completed Universit y of Vaccine [facility] .5 mL 00:00:00 [facility] 6+ MO Branch Tdap 2019-09-30 Completed University of 00:00:00 [place] [facility] Influenza Virus 2019-09-30 Completed Universit y of Vaccine Quad .5 mL 00:00:00 [facility] 6+ MO Branch Tdap 2019-09-30 Completed University of 00:00:00 [place] [facility] Influenza Virus 2019-09-30 Completed Universit y of Vaccine Quad .5 mL 00:00:00 [place] [facility] 6+ MO Branch Tdap 2019-09-30 Completed University of 00:00:00 [place] [facility] Influenza Virus 2019-09-30 Completed Universit y of Vaccine Quad .5 mL 00:00:00 [place] [facility] 6+ MO Branch Tdap 2019-09-30 Completed University of 00:00:00 [place] [facility] Influenza Virus 2019-09-30 Completed Universit y of Vaccine [facility] .5 mL 00:00:00 [place] [facility] 6+ MO Branch Tdap 2019-09-30 Completed University of 00:00:00 [place] [facility] Influenza Virus 2019-09-30 Completed Universit y of Vaccine Quad .5 mL 00:00:00 [facility] 6+ MO Branch Tdap 2019-09-30 Completed University of 00:00:00 [place] [facility] Influenza Virus 2019-09-30 Completed Universit y of Vaccine Quad .5 mL 00:00:00 [place] [facility] 6+ MO Branch Tdap 2019-09-30 Completed University of 00:00:00 [place] [facility] Influenza Virus 2019-09-30 Completed Universit y of Vaccine Quad .5 mL 00:00:00 [facility] 6+ MO Branch Tdap 2019-09-30 Completed University of 00:00:00 [place] [facility] Influenza Virus 2019-09-30 Completed Universit y of Vaccine Quad .5 mL 00:00:00 [place] [facility] 6+ MO Branch Tdap 2019-09-30 Completed University of 00:00:00 [place] [facility] Influenza Virus 2019-09-30 Completed Universit y of Vaccine Quad .5 mL 00:00:00 [place] [facility] 6+ MO Branch Tdap 2019-09-30 Completed University of 00:00:00 [place] [facility] Influenza Virus 2019-09-30 Completed Universit y of Vaccine Quad .5 mL 00:00:00 [place] [facility] 6+ MO Branch Tdap 2019-09-30 Completed University of 00:00:00 [place] [facility] Influenza Virus 2019-09-30 Completed Universit y of Vaccine Quad .5 mL 00:00:00 [place] [facility] 6+ MO Branch Tdap 2019-09-30 Completed University of 00:00:00 [place] [facility] Influenza Virus 2019-09-30 Completed Universit y of Vaccine Quad .5 mL 00:00:00 [place] [facility] 6+ MO Branch Tdap 2019-09-30 Completed University of 00:00:00 [place] [facility] Influenza Virus 2019-09-30 Completed Universit y of Vaccine Quad .5 mL 00:00:00 [place] [facility] 6+ MO Branch Tdap 2019-09-30 Completed University of 00:00:00 [place] [facility] Influenza Virus 2019-09-30 Completed Universit y of Vaccine Quad .5 mL 00:00:00 [place] [facility] 6+ MO Branch Tdap 2019-09-30 Completed University of 00:00:00 [place] [facility] Influenza Virus 2019-09-30 Completed Universit y of Vaccine Quad .5 mL 00:00:00 [facility] 6+ MO Branch Tdap 2019-09-30 Completed University of 00:00:00 [facility] Influenza Virus 2019-09-30 Completed Universit y of Vaccine Quad .5 mL 00:00:00 [facility] 6+ MO Branch Tdap 2019-09-30 Completed University of 00:00:00 [place] [facility] Influenza Virus 2019-09-30 Completed Universit y of Vaccine Quad .5 mL 00:00:00 [facility] 6+ MO Branch Tdap 2019-09-30 Completed University of 00:00:00 [place] [facility] Influenza Virus 2019-09-30 Completed Universit y of Vaccine Quad .5 mL 00:00:00 [facility] 6+ MO Branch Tdap 2019-09-30 Completed University of 00:00:00 [place] [facility] Influenza Virus 2019-09-30 Completed Universit y of Vaccine Quad .5 mL 00:00:00 [facility] 6+ MO Branch TDAP 2019-09-30 Completed University of 00:00:00 [place] [facility] Influenza Virus 2019-09-30 Completed Universit y of Vaccine Quad .5 mL 00:00:00 [place] [facility] 6+ MO Branch Tdap 2019-09-30 Completed University of 00:00:00 [place] [facility] Influenza Virus 2019-09-30 Completed Universit y of Vaccine Quad .5 mL 00:00:00 [place] [facility] 6+ MO Branch Tdap 2019-09-30 Completed University of 00:00:00 [place] [facility] Influenza Virus 2019-09-30 Completed Universit y of Vaccine Quad .5 mL 00:00:00 [facility] 6+ MO Branch Tdap 2019-09-30 Completed University 00:00:00 [facility] Branch Influenza Virus 2019-09-30 Completed Universit y of Vaccine Quad .5 mL 00:00:00 [facility] IM 6+ MO Branch Tdap 2019-09-30 Completed [facility] 00:00:00 [facility] Vital Signs Vital Name Observation Time Observation Value Comments Source Systolic blood 2020-01-07 14:30:00 108 mm[Hg] Univer sity of pressure [facility] Branch Diastolic blood 2020-01-07 14:30:00 67 mm[Hg] Unive rsity of pressure [facility] Branch Heart rate 2020-01-07 14:30:00 66 /min Universi ty of [place] [facility] Body temperature 2020-01-07 14:30:00 36.56 [place] Univ ersity of [facility] Branch Respiratory rate 2020-01-07 14:30:00 16 /min Univ ersity of [facility] Body height 2020-01-07 14:30:00 152.4 cm Universi ty of [facility] Body weight 2020-01-07 14:30:00 68.55 kg Universi ty of [place] [facility] BMI 2020-01-07 14:30:00 29.51 kg/m2 Universi ty of [place] [facility] Branch Systolic blood 2019-11-28 20:21:00 112 mm[Hg] Univer sity of pressure [facility] Branch Diastolic blood 2019-11-28 20:21:00 77 mm[Hg] Unive rsity of pressure [facility] Branch Heart rate 2019-11-28 20:21:00 83 /min Universi ty of [facility] Branch Body temperature 2019-11-28 20:21:00 36.56 [facility] ersity of [facility] Branch Respiratory rate 2019-11-28 20:21:00 16 /min Univ ersity of [facility] Branch Body height 2019-11-28 20:21:00 152.4 cm Universi ty of [place] [facility] Body weight 2019-11-28 20:21:00 70.081 kg Universi ty of [place] [facility] BMI 2019-11-28 20:21:00 30.17 kg/m2 Universi ty of [place] [facility] Branch Systolic blood 2019-11-28 20:21:00 112 mm[Hg] Univer sity of pressure [facility] Branch Diastolic blood 2019-11-28 20:21:00 77 mm[Hg] Unive rsity of pressure [place] [facility] Heart rate 2019-11-28 20:21:00 83 /min Universi ty of [place] [facility] Body temperature 2019-11-28 20:21:00 36.56 [facility] [facility] ersity of [place] [facility] Respiratory rate 2019-11-28 20:21:00 16 /min Univ ersity of [place] [facility] Body height 2019-11-28 20:21:00 152.4 cm Universi ty of [place] [facility] Body weight 2019-11-28 20:21:00 70.081 kg Universi ty of [place] [facility] BMI 2019-11-28 20:21:00 30.17 kg/m2 Universi ty of [place] [facility] Systolic blood 2019-11-24 12:57:00 117 mm[Hg] Univer sity of pressure [place] [facility] Diastolic blood 2019-11-24 12:57:00 59 mm[Hg] Unive rsity of pressure [place] [facility] Heart rate 2019-11-24 12:57:00 99 /min Universi ty of [place] [facility] Body temperature 2019-11-24 12:57:00 36.44 [facility] ersity of [place] [facility] Respiratory rate 2019-11-24 12:57:00 18 /min Univ ersity of [place] [facility] Oxygen saturation in 2019-11-24 12:57:00 100 /min University of Arterial blood by [place] [facility] Pulse oximetry [place] Body height 2019-11-22 17:18:00 152.4 cm Universi ty of [place] [facility] Body weight 2019-11-22 17:18:00 72.122 kg Universi ty of [place] [facility] BMI 2019-11-22 17:18:00 31.05 kg/m2 Universi ty of [place] [facility] Systolic blood 2019-11-24 12:57:00 117 mm[Hg] Univer sity of pressure [place] [facility] Diastolic blood 2019-11-24 12:57:00 59 mm[Hg] Unive rsity of pressure [place] [facility] Heart rate 2019-11-24 12:57:00 99 /min Universi ty of [place] [facility] Body temperature 2019-11-24 12:57:00 36.44 [facility] ersity of [place] [facility] Respiratory rate 2019-11-24 12:57:00 18 /min Univ ersity of [place] [facility] Oxygen saturation in 2019-11-24 12:57:00 100 /min University of Arterial blood by [facility] Pulse oximetry Branch Body height 2019-11-22 17:18:00 152.4 cm Universi ty of [facility] Body weight 2019-11-22 17:18:00 72.122 kg Universi ty of [facility] Branch BMI 2019-11-22 17:18:00 31.05 kg/m2 Universi ty of [facility] Systolic blood 2019-11-18 13:42:00 124 mm[Hg] Univer sity of pressure [facility] Diastolic blood 2019-11-18 13:42:00 70 mm[Hg] Unive rsity of pressure [facility] Heart rate 2019-11-18 13:42:00 79 /min Universi ty of [facility] Body temperature 2019-11-18 13:42:00 36.17 [facility] ersity of [facility] Respiratory rate 2019-11-18 13:42:00 16 /min Univ ersity of [facility] Body height 2019-11-18 13:42:00 152.4 cm Universi ty of [facility] Body weight 2019-11-18 13:42:00 73.057 kg Universi ty of [facility] Branch BMI 2019-11-18 13:42:00 31.46 kg/m2 Universi ty of [facility] Branch Systolic blood 2019-11-18 13:42:00 124 mm[Hg] Univer sity of pressure [facility] Branch Diastolic blood 2019-11-18 13:42:00 70 mm[Hg] Unive rsity of pressure [facility] Heart rate 2019-11-18 13:42:00 79 /min Universi ty of [facility] Body temperature 2019-11-18 13:42:00 36.17 [facility] ersity of [facility] Respiratory rate 2019-11-18 13:42:00 16 /min Univ ersity of [facility] Body height 2019-11-18 13:42:00 152.4 cm Universi ty of [facility] Body weight 2019-11-18 13:42:00 73.057 kg Universi ty of [facility] BMI 2019-11-18 13:42:00 31.46 kg/m2 Universi ty of [facility] Systolic blood 2019-11-11 13:57:00 118 mm[Hg] Univer sity of pressure [facility] Diastolic blood 2019-11-11 13:57:00 69 mm[Hg] Unive rsity of pressure [facility] Heart rate 2019-11-11 13:57:00 82 /min Universi ty of [place] [facility] Body temperature 2019-11-11 13:57:00 36.33 [facility] ersity of [place] [facility] Respiratory rate 2019-11-11 13:57:00 16 /min Univ ersity of [place] [facility] Body height 2019-11-11 13:57:00 152.4 cm Universi ty of [place] [facility] Body weight 2019-11-11 13:57:00 71.697 kg Universi ty of [place] [facility] BMI 2019-11-11 13:57:00 30.87 kg/m2 Universi ty of [place] [facility] Systolic blood 2019-11-11 13:57:00 118 mm[Hg] Univer sity of pressure [place] [facility] Diastolic blood 2019-11-11 13:57:00 69 mm[Hg] Unive rsity of pressure [facility] Heart rate 2019-11-11 13:57:00 82 /min Universi ty of [place] [facility] Body temperature 2019-11-11 13:57:00 36.33 [facility] ersity of [place] [facility] Respiratory rate 2019-11-11 13:57:00 16 /min Univ ersity of [place] [facility] Body height 2019-11-11 13:57:00 152.4 cm Universi ty of [place] [facility] Body weight 2019-11-11 13:57:00 71.697 kg Universi ty of [place] [facility] BMI 2019-11-11 13:57:00 30.87 kg/m2 Universi ty of [place] [facility] Systolic blood 2019-10-27 15:32:00 114 mm[Hg] Univer sity of pressure [facility] Diastolic blood 2019-10-27 15:32:00 66 mm[Hg] Unive rsity of pressure [facility] Heart rate 2019-10-27 15:32:00 83 /min Universi ty of [facility] Body temperature 2019-10-27 15:32:00 36.89 [facility] Respiratory rate 2019-10-27 15:32:00 16 /min [facility] Body height 2019-10-27 15:32:00 152.4 cm [facility] Body weight 2019-10-27 15:32:00 70.308 kg [facility] BMI 2019-10-27 15:32:00 30.27 kg/m2 [facility] Systolic blood 2019-10-13 15:00:00 116 mm[Hg] [facility] Diastolic blood 2019-10-13 15:00:00 67 mm[Hg] [facility] Heart rate 2019-10-13 15:00:00 84 /min [facility] Body temperature 2019-10-13 15:00:00 36.39 [facility] Respiratory rate 2019-10-13 15:00:00 16 /min [facility] Body height 2019-10-13 15:00:00 152.4 cm [facility] Body weight 2019-10-13 15:00:00 69.31 kg [facility] BMI 2019-10-13 15:00:00 29.84 kg/m2 [facility] Systolic blood 2019-10-02 15:13:00 128 mm[Hg] [facility] Diastolic blood 2019-10-02 15:13:00 71 mm[Hg] [facility] Heart rate 2019-10-02 15:13:00 81 /min [facility] Body temperature 2019-10-02 15:13:00 36.22 [facility] Respiratory rate 2019-10-02 15:13:00 16 /min [facility] Body height 2019-10-02 15:13:00 152.4 cm [facility] Body weight 2019-10-02 15:13:00 67.586 kg [facility] BMI 2019-10-02 15:13:00 29.10 kg/m2 [facility] Systolic blood 2019-09-30 19:43:00 113 mm[Hg] [facility] Diastolic blood 2019-09-30 19:43:00 67 mm[Hg] [facility] Heart rate 2019-09-30 19:43:00 91 /min [facility] Body temperature 2019-09-30 19:43:00 36.22 [facility] Respiratory rate 2019-09-30 19:43:00 16 /min [facility] Body height 2019-09-30 19:43:00 152.4 cm [facility] Body weight 2019-09-30 19:43:00 67.189 kg [facility] BMI 2019-09-30 19:43:00 28.93 kg/m2 [facility] Procedures Procedure Date / Time Performing Clinician Source Performed POCT TEST 2020-01-07 14:33:00 Rashid Tovar [facility] CONSENT FOR 2020-01-07 05:01:00 Doctor Unassigned, Danay [facility] CBC WITH DIFFERENTIAL 2019-11-23 09:13:00 Reynold Jones [facility] ARTERIAL CORD GAS 2019-11-22 23:50:00 [facility] VENOUS CORD GAS 2019-11-22 23:49:00 [facility] SECTION 2019-11-22 23:00:00 Fidelia Billings [facility] HEPATITIS B SURFACE 2019-11-22 20:42:00 [facility] ANTIGEN [facility] GALV ONLY - SYPHILIS 2019-11-22 20:42:00 [facility] IGG/IGM [facility] HB ABO GROUPING 2019-11-22 20:02:00 [facility] RHO (D) IMMUNE GLOBULIN 2019-11-22 20:02:00 Reynold Jones [facility] CORONAVIRUS COVID-19 2019-11-22 17:09:00 Fidelia [facility] POCT URINALYSIS 2019-11-18 13:49:00 Carla Rajan [facility] POCT URINALYSIS 2019-11-11 14:00:00 Carla Rajan [facility] POCT URINALYSIS 2019-10-27 17:09:00 Carla Rajan [facility] AUTHORIZATION TO RELEASE 2019-10-09 06:01:00 Doctor Unassigned, No [facility] PHI TO [facility] Name [facility] TDAP VACCINE, >11 YRS, 2019-09-30 20:39:21 Carla Rajan [facility] [place] FLU VACC ([phone]), 6+ 2019-09-30 20:22:55 Carla Rajan [facility] MONTHS, IM, QUAD [facility] [place] POCT URINALYSIS W/O 2019-09-30 19:35:00 Carla Rajan [facility] SPECIFIC GRAVITY [facility] POCT TEST 2019-09-30 19:34:00 [facility] 2019-09-30 19:11:56 Doctor Unassigned, No [facility] Encounters Start End Encounter Admission Attending Care Care Encounter Source Date/Time Date/Time Type Type Clinicians Facility Department ID 2021-06-09 Outpatient [facility] [id number] Univers 17:44:35 ity of [facility] 2021-01-06 2021-01-06 Outpatient Bernabe TOVAR [facility] [id number] Univers 08:30:00 08:30:00 RASHID [id number] ity o f [facility] 2020-11-02 2020-11-02 Patient Zander [facility] [id number] Univers 00:00:00 00:00:00 Outreach Declan PRIMARY [id number] i ty of [facility] [place]2.[place].2.[id number] [place] [address] [place] [address] 2020-01-07 2020-01-07 [facility] 1.2.840.114 [id number] Univers 09:23:30 10:10:21 Visit Rashid Kidd MONOGRAM TECHNICIAN 350.1.13.10 ity [facility] 4.2.7.2.686 Juan as MATERNAL [phone] Med ical & CHILD [address] [place] [address] 2020-01-07 2020-01-07 Outpatient Bernabe TOVAR [facility] [id number] Univers 09:00:00 09:00:00 RASHID [id number] ity o f [facility] 2020-01-07 2020-01-07 Outpatient Bernabe TOVAR [facility] [id number] Univers 09:00:00 09:00:00 KIMANIAMBAR shahnaz o oscar [facility] 2020-01-07 2020-01-07 Orders Doctor ESTUARDO 1.2.840.114 [id number] Univers 00:00:00 00:00:00 Only Unassigned, LUKE 350.1.13.10 ity of Welcome [facility] 4.2.7.2.686 Juan as [phone] [address] 2019-12-16 2019-12-16 [facility] [id number] Univers 09:15:00 09:15:00 RASHID [id number] itjamaica o oscar [facility] 2019-12-16 2019-12-16 Outpatient Bernabe TOVAR [facility] [id number] Univers 09:15:00 09:15:00 RASHID de leon oscar [facility] 2019-12-16 2019-12-16 Telemedicnarciso Guy [facility] 1.2.840.114 [id number] [facility] 07:34:01 09:03:14 ne Visit Rashid Bernabe MONOGRAM TECHNICIAN 350.1.13.10 ity of [facility] 4.2.7.2.686 Juan as MATERNAL [phone] [facility] ical & CHILD [address] [place] [address] 2019-12-16 2019-12-16 Telemedicnarciso Guy [facility] 1.2.840.114 [id number] 07:34:01 09:03:14 ne Visit Rashid R MONOGRAM TECHNICIAN 350.1.13.10 [facility] 4.2.7.2.686 MATERNAL [id number] & CHILD [address] [place] [address] 2019-11-28 2019-11-28 Nurse Visit, Han-chp Nurse [facility] 1.2 .840.114 [id number] Univers 14:57:15 15:27:42 Visit Carla Rajan MONOGRAM TECHNICIAN 350.1.13. 10 ity of [facility] 4.2.7.2.686 Juan as MATERNAL [id number] [facility] ical & CHILD [address] [place] [address] 2019-11-28 2019-11-28 Nurse Visit, [facility] 1.2.840.114 [id number] 14:57:15 15:27:[address] [facility] MONOGRAM TECHNICIAN 350.1.13.10 Nurse [facility] 4.2.7.2.686 MATERNAL [phone] & CHILD [address] [place] [address] 2019-11-28 2019-11-28 Outpatient R AKINSIPE, [facility] [id number] Univers 15:00:00 15:00:00 CARLA ity o f [facility] 2019-11-25 2019-11-25 Outpatient R AKINSIPE, [facility] [id number] Univers 09:30:00 09:30:00 CARLA [id number] ity o [facility] 2019-11-25 2019-11-25 Outpatient R AKINSIPE, [facility] [id number] Univers 09:30:00 09:30:00 CARLA ity o [facility] 2019-11-25 2019-11-25 Outpatient R AKINSIPE, [facility] [id number] Univers 09:15:00 09:15:00 CARLA ity o [facility] 2019-11-22 2019-11-24 [facility] [id number] Univers 11:49:00 12:16:00 Encounter Fidelia [place] 350.1.13.10 ity of HOSPITAL 4.2.7.2.686 Juan as [id number] [address] 2019-11-22 2019-11-24 [facility] [id number] 11:49:00 12:16:00 Encounter Fidelia LUKE 350.1.13.10 [facility] 4.2.7.2.686 [id number] [facility] 2019-11-18 2019-11-18 Routine Akinsipe, [facility] [id number] Univers 08:34:45 08:55:27 Carla C MONOGRAM TECHNICIAN 350.1.13.10 ity of Visit REGIONAL 4.2.7.2.686 Juan as MATERNAL [phone] [facility] ical & CHILD [address] [place] [address] 2019-11-18 2019-11-18 Routine Akinsipe, [facility] [id number] 08:34:45 08:55:27 Carla C MONOGRAM TECHNICIAN 350.1.13.10 Visit REGIONAL 4.2.7.2.686 MATERNAL [id number] & CHILD 107 [facility] 2019-11-18 2019-11-18 Outpatient R AKINSIPE, [facility] [id number] Univers 08:45:00 08:45:00 CARLA [id number] ity o f [facility] 2019-11-18 2019-11-18 Outpatient R AKINSIPE, [facility] [id number] Univers 08:45:00 08:45:00 CARLA ity o [facility] 2019-11-11 2019-11-11 Routine Akinsipe, [facility] [id number] Univers 08:49:21 09:26:07 Carla C MONOGRAM TECHNICIAN 350.1.13.10 ity of Visit REGIONAL 4.2.7.2.686 Juan as MATERNAL [phone] Med ical & CHILD 107 [facility] 2019-11-11 2019-11-11 Routine Akinsipe, [facility] [id number] 08:49:21 09:26:07 Carla C MONOGRAM TECHNICIAN 350.1.13.10 Visit REGIONAL 4.2.7.2.686 MATERNAL [phone] & CHILD 107 [facility] 2019-11-11 2019-11-11 Outpatient R AKINSIPE, [facility] [id number] Univers 09:00:00 09:00:00 CARLA [id number] ity o f [facility] 2019-11-11 2019-11-11 Outpatient R AKINSIPE, [facility] [id number] Univers 09:00:00 09:00:00 CARLA ity o [facility] 2019-11-10 2019-11-10 Outpatient AKINSIPE, [facility] [id number] Univers 09:00:00 09:00:00 CARLA [id number] ity o f [facility] 2019-10-27 2019-10-27 Routine Akinsipe, [facility] [id number] Univers 09:42:46 12:09:33 Carla Elias MONOGRAM TECHNICIAN 350.1.13.10 ity of Visit REGIONAL 4.2.7.2.686 Juan as MATERNAL [id number] [address] 2019-10-27 2019-10-27 [facility] [id number] Univers 09:30:00 09:30:00 CARLA [id number] ity o f [facility] 2019-10-27 2019-10-27 Outpatient R SATINDER [facility] [id number] Univers 09:30:00 09:30:00 CARLA ity o f [facility] 2019-10-13 2019-10-13 Routine Faculty, Han Basilio [facility] 1.2 .840.114 [id number] Univers 08:47:13 11:29:01 Leandro Neff MONOGRAM TECHNICIAN 350.1.13.10 ity of Visit REGIONAL 4.2.7.2.686 Juan as MATERNAL [id number] [address] 2019-10-13 2019-10-13 Outpatient R [facility] [id number] Univers 09:00:00 09:00:00 ity of [facility] 2019-10-09 2019-10-09 Orders Doctor ESTUARDO 1.2.840.114 [id number] Univers 00:00:00 00:00:00 Only Unassigned, LUKE 350.1.13.10 ity of Welcome [facility] 4.2.7.2.686 Juan as [id number] [address] 2019-10-02 2019-10-02 Nurse Visit, [facility] Nurse [facility] 1.2 .840.114 [id number] Univers 09:02:47 09:32:54 Visit Carla Rajan MONOGRAM TECHNICIAN 350.1.13. 10 ity of [facility] 4.2.7.2.686 Juan as MATERNAL [phone] [facility] & [address] 2019-10-01 2019-10-01 Radio Sportscaster [facility]tras[facility] 1.2 .840.114 [id number] Univers 09:01:49 10:01:49 Visit Carla Rajan C MONOGRAM TECHNICIAN 350.1.13. 10 ity of REGIONAL 4.2.7.2.686 Juan as MATERNAL [phone] Med ical & CHILD 369 [facility] 2019-10-01 2019-10-01 Radio Sportscaster Lab, Ang-Rmchp [facility] 1.2.840. 114 [id number] Univers 08:36:33 08:41:17 Visit Carla Rajan C MONOGRAM TECHNICIAN 350.1.13. 10 ity of REGIONAL 4.2.7.2.686 Juan as MATERNAL [phone] Med ical & CHILD 107 [facility] 2019-10-01 2019-10-01 Abstract Satinder [facility] 1.2.840.114 [id number] Univers 00:00:00 00:00:00 Carla C MONOGRAM TECHNICIAN 350.1.13.10 ity of REGIONAL 4.2.7.2.686 Juan as MATERNAL [id number] [facility] ical & CHILD 107 [facility] 2019-10-01 2019-10-01 Telephone Asimlynn [facility] 1.2.840.114 [id number] Univers 00:00:00 00:00:00 Carla C MONOGRAM TECHNICIAN 350.1.13.10 ity of REGIONAL 4.2.7.2.686 Juan as MATERNAL [phone] [facility] ical & CHILD [address] [place] [address] 2019-09-30 2019-09-30 Initial Satinder [facility] [id number] Univers 13:30:37 14:59:32 Carla C MONOGRAM TECHNICIAN 350.1.13.10 ity of Visit REGIONAL 4.2.7.2.686 Juan as MATERNAL [id number] [facility] ical & CHILD [address] [place] [address] 2019-09-30 2019-09-30 Orders Doctor ESTUARDO 1.2.840.114 [id number] Univers 00:00:00 00:00:00 Only Unassigned, LUKE 350.1.13.10 ity of Welcome [facility] 4.2.7.2.686 Juan as [phone] [address] Results Test Description Test Time Test Comments Results Result Comments Source POCT TEST 2020-01-07 14:33:00 Test Item Value Reference Range Interpretation Comme nts POCT PREG (test code = 1605) Negative On board controls acceptable with C Line (test code = 3574) Yes POCT PREG LOT # (test code = 3575) POCT PREG TEST DATE (test code = 3576) [facility] [id number] 14:33:00 Test Item Value Reference Range Interpretation Comments POCT PREG (test code = 1605) Negative On board controls acceptable with C Yes Line (test code = 3574) POCT PREG LOT # (test code = 3575) POCT PREG TEST DATE (test code = 3576) [facility] - SYPHILIS [id number] 15:38:00 Test Item Value Reference Range Interpretation Comments Syphilis IgG/IgM (test Non-reactive Non-reactive code = 12859-5) JOSE RAFAEL (test code = JOSE RAFAEL) Non-reactive - No serologic evidence of T. pallidum infection. Cannot exclude incubating or early syphilis. Submit a second specimen in 2-4 weeks if syphilis is clinically suspected. Equivocal - Further testing to follow. Reactive - Further testing to follow. Lab Interpretation (test Normal code = 94876-8) [facility] WITH [id number] 09:57:00 Test Item Value Reference Range Interpretation Comments WBC (test code = See_Comment H [Automated 9016-2) message] The system which generated this result transmit gianna reference range : 4.50 - 13.50 10*3/?L. The reference range was not used to interpret this result as normal/abnormal . RBC (test code = See_Comment L [Automated 556-8) message] The system which generated this result transmit gianna reference range : 4.10 - 5.10 10*6/?L. The reference range was not used to interpret this result as normal/abnormal . HGB (test code = 10.3 g/dL 12-16 L 718-7) HCT (test code = 30.9 % 36-45 L 4544-3) MCV (test code = 90.6 fL 78-95 787-2) MCH (test code = 30.2 pg 26-32 785-6) MCHC (test code = 33.3 g/dL 32-36 786-4) RDW-SD (test code = 44.9 fL 38.5-49 76713-2) RDW-CV (test code = 13.5 % 11.5-14 788-0) PLT (test code = See_Comment [Automated 777-3) message] The system which generated this result transmit gianna reference range : 135 - 361 10*3/ ?L. The reference range was not u sed to interpret th is result as normal/abnormal . MPV (test code = 11.5 fL 9.4-13.3 38463-9) NRBC/100 WBC (test See_Comment [Automat ed code = 1269262437) message] The system which generated this result transmit gianna reference range : 0.0 - 10.0 /100 WBCs. The reference range was not used to interpret this result as normal/abnormal . NRBC x10^3 (test code <0.01 See_Comment [Auto mated = 7604907108) message] The system which generated this result transmit gianna reference range : 10*3/?L. The reference range was not used to interpret this result as normal/abnormal . GRAN MAT (NEUT) % 82.3 % (test code = 770-8) IMM GRAN % (test code 1.00 % = 8950947102) LYMPH % (test code = 10.2 % 736-9) MONO % (test code = 5.6 % 5905-5) EOS % (test code = 0.5 % 713-8) BASO % (test code = 0.4 % 706-2) GRAN MAT x10^3(ANC) 14.09 10*3/uL 1.5-10.3 H (test code = 8563917189) IMM GRAN x10^3 (test 0.17 10*3/uL 0-0.06 H code = 4786362902) LYMPH x10^3 (test code 1.74 10*3/uL 0.7-7.4 = 731-0) MONO x10^3 (test code 0.96 10*3/uL 0-0.5 H = 742-7) EOS x10^3 (test code = 0.09 10*3/uL 0-0.4 711-2) BASO x10^3 (test code 0.06 10*3/uL 0-0.1 = 704-7) BANDS (test code = Increased A 5876971693) Lab Interpretation Abnormal (test code = 55178-1) [facility] (D) IMMUNE [id number] 04:07:12 Test Item Value Reference Range Interpretation Comments RHIG CANDIDATE? No- see comment Patient i s not a (test code = candidate for R hIg- 5055) Patient is Rh Positive.Perfor med at [facility] Laboratory Services - [facility] Blood [address] [place] [address] 37484Xxwu Free: [phone] A No. [id number] [facility]vineARTERIAL CORD [id number] 23:57:00 Test Item Value Reference Range Interpretation Comments BASE EXCESS, CORD (test mEq/L code = 9282395253) AC PH, CORD (BEAKER) 7.18-7.38 (test code = 4496671213) PC02, CORD (test code = See_Comment H [Au tomated message] 6497007153) The system [employer] generated this result transmitted ref erence range: 32 - 66 mmHg. The reference r devin was not used to interpret this result as normal/abnor mal. PO2, CORD (test code = See_Comment [Aut omated message] 2175911528) The system [employer] generated this result transmitted ref erence range: 10 - 30 mmHg. The reference r devin was not used to interpret this result as normal/abnor mal. BICARBONATE, CORD (test See_Comment H [Au tomated message] code = 0471073445) The syste m which generated this result transmitted ref erence range: 17 - 27 mEq/L. The reference r devin was not used to interpret this result as normal/abnor mal. Lab Interpretation (test Abnormal code = 09194-7) [facility]vine[facility] CORD [id number] 23:52:00 Test Item Value Reference Range Interpretation Comments VENOUS BASE EXCESS, CORD mEq/L (test code = 1543624636) VENOUS PH, CORD (test 7.25-7.45 code = 5909445148) VENOUS PC02, CORD (test See_Comment H [Au tomated message] code = 0099842064) The syste m which generated this result transmitted ref erence range: 27 - 49 mmHg. The reference r devin was not used to interpret this result as normal/abnor mal. VENOUS PO2, CORD (test See_Comment [Aut omated message] code = 9982926838) The syste m which generated this result transmitted ref erence range: 17 - 41 mmHg. The reference r devin was not used to interpret this result as normal/abnor mal. VENOUS BICARBONATE, CORD See_Comment [A utomated message] (test code = 9734884402) The system which generated this result transmitted ref erence range: 12 - 29 mEq/L. The reference r devin was not used to interpret this result as normal/abnor mal. Lab Interpretation (test Abnormal code = 11361-8) [facility]vineHepatitis B Surface [id number] 22:06:00 Test Item Value Reference Range Interpretation Comments HBsAg Semi-Quantitative (test code = Negative Negative 5195-3) [facility]vineType and Screen - ONCE [id number] 21:39:44 Test Item Value Reference Range Interpretation Comments ABO & RH (test code O POSITIVE Performe d at [facility] = 20) Laboratory Serv [facility] [place] [address] s 27428Gftc Free: [phone] A No. [id number] IAT (test code = Negative Performed a t [facility] 1185) Laboratory Serv [facility] [address] [place] [address] s 54828Hifn Free: [phone] A No. [id number] [facility]vineCORONAVIRUS COVID-19 [id number] 18:00:00 Test Item Value Reference Range Interpretation Comments SARS-CoV-2 (test code = Not Detected Not Detected 88867-4) JOSE RAFAEL (test code = JOSE RAFAEL) ID NOW COVID-19 Assay is an isothermal nucleic acid amplification test intended for the qualitative detection of nucleic acid from SARS-CoV-2 viral RNA in nasopharyngeal (MUSIC STORE MANAGER) specimens. It is used under Emergency Use Authorization (EUA) by FDA. The limit of detection (LOD) of the assay is 125 Genome Equivalents/mL. A positive result is indicative of the presence of SARS-CoV-2 RNA. ?Clinical correlation with patient history and other diagnostic information is necessary to determine patient infection status. A negative (Not Detected) result does not preclude SARS-CoV-2 infection. Clinical correlation with patient history and other diagnostic information should be used in patient management decisions. Invalid: Please collect a new specimen for repeat patient testing if clinically indicated. Lab Interpretation Normal (test code = 17888-2) [facility] URINALYSIS W SPECIFIC [id number] 13:49:00 Test Item Value Reference Range Interpretation Comments POCT U SP GRAV (test code = 3255) . 1.005-1.025 POCT PH U (test code = 3254) . 5-8 POCT U LEUK EST (test code = 3263) . Negative - Negative POCT U NIT (test code = 3262) . Negative - Negative POCT U PROT (test code = 3259) Trace Negative - Negative POCT U GLU (test code = 3256) Neg Negative - Negative POCT U KETONE (test code = 3258) . Negative - Negative POCT U UROBILI (test code = 3260) . 0.2-1 POCT U BILI (test code = 3261) . Negative - Negative POCT U BLD (test code = 3257) . Negative - Negative POCT U COLOR (test code = 3266) POCT U APPEAR (test code = 3267) [facility] URINALYSIS W SPECIFIC [id number] 14:00:00 Test Item Value Reference Range Interpretation Comments POCT U SP GRAV (test code = 3255) . 1.005-1.025 POCT PH U (test code = 3254) . 5-8 POCT U LEUK EST (test code = 3263) . Negative - Negative POCT U NIT (test code = 3262) . Negative - Negative POCT U PROT (test code = 3259) Trace Negative - Negative POCT U GLU (test code = 3256) Neg Negative - Negative POCT U KETONE (test code = 3258) . Negative - Negative POCT U UROBILI (test code = 3260) . 0.2-1 POCT U BILI (test code = 3261) . Negative - Negative POCT U BLD (test code = 3257) . Negative - Negative POCT U COLOR (test code = 3266) POCT U APPEAR (test code = 3267) [facility] URINALYSIS W SPECIFIC [id number] 14:00:00 Test Item Value Reference Range Interpretation Comments POCT U SP GRAV (test code = 3255) . 1.005-1.025 POCT PH U (test code = 3254) . 5-8 POCT U LEUK EST (test code = 3263) . Negative - Negative POCT U NIT (test code = 3262) . Negative - Negative POCT U PROT (test code = 3259) Trace Negative - Negative POCT U GLU (test code = 3256) Neg Negative - Negative POCT U KETONE (test code = 3258) . Negative - Negative POCT U UROBILI (test code = 3260) . 0.2-1 POCT U BILI (test code = 3261) . Negative - Negative POCT U BLD (test code = 3257) . Negative - Negative POCT U COLOR (test code = 3266) POCT U APPEAR (test code = 3267) [facility] [facility] URINALYSIS W SPECIFIC [id number] 17:09:00 Test Item Value Reference Range Interpretation Comments POCT U SP GRAV (test code = 3255) . 1.005-1.025 POCT PH U (test code = 3254) . 5-8 POCT U LEUK EST (test code = 3263) . Negative - Negative POCT U NIT (test code = 3262) . Negative - Negative POCT U PROT (test code = 3259) Trace Negative - Negative POCT U GLU (test code = 3256) Neg Negative - Negative POCT U KETONE (test code = 3258) . Negative - Negative POCT U UROBILI (test code = 3260) . 0.2-1 POCT U BILI (test code = 3261) . Negative - Negative POCT U BLD (test code = 3257) . Negative - Negative POCT U COLOR (test code = 3266) POCT U APPEAR (test code = 3267) [facility] URINALYSIS W/O SPECIFIC [id number] 19:35:00 Test Item Value Reference Range Interpretation Comments POCT PH U (test code = 3254) 5 mg/dl 5-8 POCT U LEUK EST (test code = 1+ Negative - Negative 3263) POCT U NIT (test code = 3262) Neg Negative - Negative POCT U PROT (test code = 3259) Trace Negative - Negative POCT U GLU (test code = 3256) Neg Negative - Negative POCT U KETONE (test code = 3258) None Negative - Negative POCT U BLD (test code = 3257) Neg Negative - Negative [facility]CIFIC [id number] 19:35:00 Test Item Value Reference Range Interpretation Comments POCT PH U (test code = 3254) 5 mg/dl 5-8 POCT U LEUK EST (test code = 1+ Negative - Negative 3263) POCT U NIT (test code = 3262) Neg Negative - Negative POCT U PROT (test code = 3259) Trace Negative - Negative POCT U GLU (test code = 3256) Neg Negative - Negative POCT U KETONE (test code = 3258) None Negative - Negative POCT U BLD (test code = 3257) Neg Negative - Negative [facility] [id number] 19:35:00 Test Item Value Reference Range Interpretation Comments POCT PH U (test code = 3254) 5 mg/dl 5-8 POCT U LEUK EST (test code = 1+ Negative - Negative 3263) POCT U NIT (test code = 3262) Neg Negative - Negative POCT U PROT (test code = 3259) Trace Negative - Negative POCT U GLU (test code = 3256) Neg Negative - Negative POCT U KETONE (test code = 3258) None Negative - Negative POCT U BLD (test code = 3257) Neg Negative - Negative [facility] [id number] 19:35:00 Test Item Value Reference Range Interpretation Comments POCT PH U (test code = 3254) 5 mg/dl 5-8 POCT U LEUK EST (test code = 1+ Negative - Negative 3263) POCT U NIT (test code = 3262) Neg Negative - Negative POCT U PROT (test code = 3259) Trace Negative - Negative POCT U GLU (test code = 3256) Neg Negative - Negative POCT U KETONE (test code = 3258) None Negative - Negative POCT U BLD (test code = 3257) Neg Negative - Negative [facility] [id number] 19:34:00 Test Item Value Reference Range Interpretation Comments POCT PREG (test code = 1605) Positive On board controls acceptable with C Yes Line (test code = 3574) POCT PREG LOT # (test code = 3575) POCT PREG TEST DATE (test code = 3576) [facility] [id number] 19:34:00 Test Item Value Reference Range Interpretation Comments POCT PREG (test code = 1605) Positive On board controls acceptable with C Yes Line (test code = 3574) POCT PREG LOT # (test code = 3575) POCT PREG TEST DATE (test code = 3576) [facility] [id number] 19:34:00 Test Item Value Reference Range Interpretation Comments POCT PREG (test code = 1605) Positive On board controls acceptable with C Yes Line (test code = 3574) POCT PREG LOT # (test code = 3575) POCT PREG TEST DATE (test code = 3576) [facility] [id number] 19:34:00 Test Item Value Reference Range Interpretation Comments POCT PREG (test code = 1605) Positive On board controls acceptable with C Yes Line (test code = 3574) POCT PREG LOT # (test code = 3575) POCT PREG TEST DATE (test code = 3576) [facility]
[2021-07-15] MEDS ORDERED: MORPHINE 4 MG/ML SYR ONE (22:45)
[2021-07-15] MEDS ORDERED: ONDANSETRON 4 MG/2 ML VIAL ONE (22:45)
[2021-07-15 22:59] LABS: Absolute Lymphocytes (CBC) 2.1 K/uL (0.7-4.9); Basophils % 0.3 % (0-1.3); Hematocrit 34.2 % (36.0-45.0); Lymphocytes % 27.5 % (15.3-44.8); MPV 9.8 fL (7.6-11.3); RBC Red Blood Cell Count 4.22 M/uL (3.86-4.86)
[2021-07-15 23:08] LABS: Protime INR 1.21
[2021-07-15 23:18] LABS: ALT/SGPT 16 U/L (12-78); AST/SGOT 9 U/L (15-37); Albumin 4.2 g/dL (3.4-5.0); Alkaline Phosphatase 56 U/L (45-117); BUN Blood Urea Nitrogen 11 mg/dL (7-18); Bicarbonate 26 mmol/L (21-32); Bilirubin Direct < 0.1 mg/dL (0-0.2); Bilirubin Total 0.4 mg/dL (0.2-1.0); Glucose Level 103 mg/dL (74-106); Magnesium 2.2 mg/dL (1.8-2.4); NT PRO-BNP 38 pg/mL (<125); Potassium 3.2 mmol/L (3.5-5.1); Protein, Total 7.8 g/dL (6.4-8.2); Sodium Level 142 mmol/L (136-145); Troponin (Emerg Dept Use Only) < 0.02 ng/mL (0.0-0.045)
[2021-07-16] MEDS ORDERED: POTASSIUM 25 MEQ EFFERV TAB ONE
[2021-07-16] MEDS ORDERED: IBUPROFEN 400 MG TAB ONE (00:03)
--- NOTE | 2021-07-16 02:32 | ER ---
Nurse's Notes [facility] Name: Atiya Castellanos Age: 20 yrs Sex: Female : 2000 Arrival Date: 07/15/2021 Time: 22:14 Bed 11 Private MD: Diagnosis: Chest pain, unspecified;Pain in right leg Presentation: 07/15 22:19 Chief complaint: Patient states: I was at work and began having chest pains today at ld1 1600. Pt denies cardiac history or previous episode of chest pain. States that she was not stressed out or upset about anything. Coronavirus screen: At this time, the client does not indicate any symptoms associated with coronavirus-19. Ebola Screen: No symptoms or risks identified at this time. Initial Sepsis Screen: Does the patient meet any 2 criteria? No. Patient's initial sepsis screen is negative. Does the patient have a suspected source of infection? No. Patient's initial sepsis screen is negative. Risk Assessment: Do you want to hurt yourself or someone else? Patient reports no desire to harm self or others. Onset of symptoms was July 15, 2021. 22:19 Method Of Arrival: EMS: [facility] ld1 22:19 Acuity: CHRIS 3 ld1 Triage Assessment: 22:20 General: Appears in no apparent distress. comfortable, Behavior is cooperative, ld1 appropriate for age, anxious. Pain: Complains of pain in chest Pain does not radiate. Pain currently is 7 out of 10 on a pain scale. Quality of pain is described as heavy, pressure, Pain began gradually, Is continuous. EENT: No signs and/or symptoms were reported regarding the EENT system. Neuro: Level of Consciousness is awake, alert, obeys commands, Oriented to person, place, time, situation, Appropriate for age. Cardiovascular: Capillary refill < 3 seconds Patient's skin is warm and dry. Rhythm is regular. Respiratory: Airway is patent Respiratory effort is even, unlabored, Respiratory pattern is regular, symmetrical. GI: Abdomen is flat, non-distended. : No signs and/or symptoms were reported regarding the genitourinary system. Derm: No signs and/or symptoms reported regarding the dermatologic system. Musculoskeletal: No signs and/or symptoms reported regarding the musculoskeletal system. 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 - Social history:: Smoking status: Patient denies any tobacco usage or history of. Patient/guardian denies using alcohol. Screenin:27 Abuse screen: Denies threats or abuse. Denies injuries from another. Nutritional ld1 screening: No deficits noted. Tuberculosis screening: No symptoms or risk factors identified. Fall Risk None identified. Assessment: 23:27 Reassessment: See triage assessment. Pain: Complains of pain in chest. ld1 07/16 01:13 Reassessment: Patient and/or family updated on plan of care and expected duration. Pain bb level reassessed. Patient is alert, oriented x 3, equal unlabored respirations, skin warm/dry/pink. IV site in place no erythema or edema noted. Pt awaiting US. 03:01 Reassessment: Patient is alert, oriented x 3, equal unlabored respirations, skin bb warm/dry/pink. pt verbalized understanding of and agrees to plan of care discharge instructions given pt ambulated with steady gait to exit accompanied by family. Vital Signs: 07/15 22:16 BP 126 / 88; Pulse 83; Resp 18; Temp 89.9; Pulse Ox 100% on R/A; dh4 22:19 Weight 58.97 kg; Height 5 ft. 2 in. (157.48 cm); ld1 23:27 BP 122 / 76; Pulse 76; Resp 18; Pulse Ox 100% on R/A; ld1 07/16 01:14 BP 102 / 57; Pulse 68; Resp 16 S; Pulse Ox 99% on R/A; bb 03:05 BP 109 / 56; Pulse 65; Resp 16 S; Temp 98.3(O); Pulse Ox 100% on R/A; bb 07/15 22:19 Body Mass Index 23.78 (58.97 kg, 157.48 cm) ld1 ED Course: 07/15 22:14 Patient arrived in ED. mw2 22:18 Elizabeth Douglass RN is Primary Nurse. ld1 22:20 Triage completed. ld1 22:20 Arm band placed on right wrist. ld1 22:29 Lisandro Willard PA is PHCP. cp 22:29 Lisandro Judd MD is Attending Physician. cp 22:59 XRAY Chest (1 view) In Process Unspecified. EDMS 23:27 Patient has correct armband on for positive identification. Placed in gown. Bed in low ld1 position. Call light in reach. Side rails up X2. parachute folder on. Pulse ox on. NIBP on. Door closed. Noise minimized. Warm blanket given. 23:27 No provider procedures requiring assistance completed. Inserted saline lock: 20 gauge ld1 in right antecubital area, using aseptic technique. Blood collected. Patient maintains SpO2 saturation greater than 95% on room air. 1204 02:33 US Extremity Venous Unilateral Ltd In Process Unspecified. EDMS 03:06 IV discontinued, intact, bleeding controlled, No redness/swelling at site. Pressure bb dressing applied. Administered Medications: 12 22:51 Drug: morphine 2 mg Route: IVP; Site: right antecubital; ld1 22:51 Drug: Zofran (Ondansetron) 4 mg Route: IVP; Site: right antecubital; ld1 22:56 Follow up: Response: No adverse reaction ld1 22:55 Drug: morphine 2 mg Route: IVP; Site: right antecubital; ld1 22:56 Follow up: Response: No adverse reaction ld1 07/16 00:08 CANCELLED (Physician Discretion): Ketorolac 15 mg IVP once bb 00:09 Drug: Potassium Effervescent Tablet 50 mEq Route: PO; bb 01:00 Follow up: Response: No adverse reaction bb 00:09 Drug: Ibuprofen 800 mg Route: PO; bb 01:00 Follow up: Response: No adverse reaction bb Outcome: 02:32 Discharge ordered by . cp 03:06 Discharged to home ambulatory, with family. bb 03:06 Condition: stable 03:06 Discharge instructions given to patient, Instructed on discharge instructions, follow up and referral plans. Demonstrated understanding of instructions, follow-up care. 03:06 Patient left the ED. bb Signatures: Dispatcher [employer] EDNC Elisabet Poole RN RN bb Page, Corey, PA PA cp [place], MyKena 2 Rivera Tamayo 4 Elizabeth Douglass, RN RN ld1 Corrections: (The following items were deleted from the chart) 07/15 22:59 22:53 CORONAVIRUS+ drawn and sent. ld1 EDMS
--- NOTE | 2021-07-16 02:33 | EDPHYS ---
Physician Documentation [facility] Name: Atiya Castellanos Age: 20 yrs Sex: Female : 2000 Arrival Date: 07/15/2021 Time: 22:14 Bed 11 Private MD: ED Physician Lisandro Judd HPI: 07/15 22:41 This 20 yrs old Female presents to ER via EMS with complaints of Chest Pain. 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 - Social history:: Smoking status: Patient denies any tobacco usage or history of. Patient/guardian denies using alcohol. ROS: 22:45 Cardiovascular: Positive for chest pain, Negative for edema, palpitations. cp 22:45 Constitutional: Negative for body aches, chills, fever, poor PO intake. cp 22:45 Respiratory: Negative for cough, shortness of breath, wheezing. 22:45 Abdomen/GI: Negative for abdominal pain, nausea, vomiting, and diarrhea. 22:45 Back: Negative for radiated pain. 22:45 Neuro: Negative for altered mental status, headache, syncope, weakness. 22:45 Eyes: Negative for injury, pain, redness, and discharge. cp 22:45 ENT: Negative for ear pain, sore throat, difficulty swallowing, difficulty handling cp secretions. 22:45 All other systems are negative. Exam: 22:45 ECG was reviewed by the Attending Physician. cp 22:50 Constitutional: The patient appears in no acute distress, alert, awake, cp non-diaphoretic, non-toxic, well developed, well nourished, uncomfortable. 22:50 Head/Face: Normocephalic, atraumatic. cp 22:50 Eyes: Periorbital structures: appear normal, Conjunctiva: normal, no exudate, no injection, Sclera: no appreciated abnormality, Lids and lashes: appear normal, bilaterally. 22:50 ENT: External ear(s): are unremarkable, Nose: is normal, Mouth: Lips: moist, Oral mucosa: moist, Posterior pharynx: Airway: no evidence of obstruction, patent. 22:50 Neck: ROM/movement: is normal, is supple, without pain, no range of motions limitations. 22:50 Chest/axilla: Inspection: normal, Palpation: crepitus, is not appreciated, tenderness, that is moderate, of the anterior aspect of right upper chest, anterior aspect of left upper chest and mid-sternal area. 22:50 Cardiovascular: Rate: normal, Rhythm: regular, Edema: is not appreciated, JVD: is not appreciated. 22:50 Respiratory: the patient does not display signs of respiratory distress, Respirations: normal, no use of accessory muscles, no retractions, labored breathing, is not present, Breath sounds: are clear throughout, no decreased breath sounds, no stridor, no wheezing. 22:50 Abdomen/GI: Inspection: abdomen appears normal, Bowel sounds: active, all quadrants, Palpation: abdomen is soft and non-tender, in all quadrants. 22:50 Back: pain, is absent, ROM is normal. 22:50 Musculoskeletal/extremity: DVT Exam: pain, that is mild, of the right leg, tenderness, that is mild, of the right leg, positive Homans' sign noted on exam. 22:50 Neuro: Orientation: to person, place \T\ time. Mentation: is normal, Motor: moves all fours, strength is normal, Sensation: is normal. Vital Signs: 22:16 BP 126 / 88; Pulse 83; Resp 18; Temp 89.9; Pulse Ox 100% on R/A; dh4 22:19 Weight 58.97 kg; Height 5 ft. 2 in. (157.48 cm); ld1 23:27 BP 122 / 76; Pulse 76; Resp 18; Pulse Ox 100% on R/A; ld1 07/16 01:14 BP 102 / 57; Pulse 68; Resp 16 S; Pulse Ox 99% on R/A; bb 03:05 BP 109 / 56; Pulse 65; Resp 16 S; Temp 98.3(O); Pulse Ox 100% on R/A; bb 07/15 22:19 Body Mass Index 23.78 (58.97 kg, 157.48 cm) ld1 MDM: 07/15 22:31 Patient medically screened. hira 07/16 02:30 Data reviewed: vital signs, nurses notes, lab test result(s), EKG, radiologic studies, cp plain films, ultrasound. 02:30 Test interpretation: by ED physician or midlevel provider: ECG, plain radiologic cp studies. Counseling: I had a detailed discussion with the patient and/or guardian regarding: the historical points, exam findings, and any diagnostic results supporting the discharge/admit diagnosis, lab results, radiology results, the need for outpatient follow up, a family practitioner, to return to the emergency department if symptoms worsen or persist or if there are any questions or concerns that arise at home. Response to treatment: the patient's symptoms have markedly improved after treatment. Special discussion: Based on the patient's history, exam, and Dx evaluation, there is no indication for emergent intervention or inpatient Tx. It is understood by the patient/guardian that if the Sx's persist or worsen they need to return immediately for re-evaluation. 07/15 22:24 Order name: Basic Metabolic Panel ld1 07/15 22:24 Order name: CBC with Diff ld1 07/15 22:24 Order name: LFT's; Complete Time: 23:49 ld1 07/15 22:24 Order name: Magnesium; Complete Time: 23:49 ld1 07/15 22:24 Order name: NT PRO-BNP; Complete Time: 23:49 ld1 07/15 22:24 Order name: PT-INR; Complete Time: 23:49 ld1 07/15 22:24 Order name: Troponin (emerg Dept Use Only); Complete Time: 23:49 ld1 07/15 22:24 Order name: XRAY Chest (1 view) ld1 07/15 22:24 Order name: Basic Metabolic Panel; Complete Time: 23:49 EDMS 07/15 23:49 Interpretation: Normal except: K 3.2; CL 108. cp 07/15 22:24 Order name: CBC with Automated Diff; Complete Time: 23:49 EDMS 07/15 22:41 Order name: D-Dimer; Complete Time: 23:49 cp 07/15 22:59 Order name: SARS-COV-2 RT PCR; Complete Time: 23:49 EDMS 07/15 22:24 Order name: EKG; Complete Time: 22:24 ld1 07/15 22:24 Order name: Cardiac monitoring; Complete Time: 22:24 ld07/15 22:24 Order name: EKG - Nurse/Tech; Complete Time: 22:56 ld07/15 22:24 Order name: IV Saline Lock; Complete Time: 22:56 07/15 22:24 Order name: Labs collected and sent; Complete Time: 22:56 ld07/15 22:24 Order name: O2 Per Protocol; Complete Time: 22:24 ld07/15 22:24 Order name: O2 Sat Monitoring; Complete Time: 22:24 ld07/15 22:41 Order name: US Extremity Venous Unilateral Ltd cp EC/03 22:45 Rate is 69 beats/min. Rhythm is regular. AL interval is normal. QRS interval is normal. cp QT interval is normal. T waves are Inverted in lead aVR. Interpreted by me. Reviewed by me. Administered Medications: 22:51 Drug: morphine 2 mg Route: IVP; Site: right antecubital; ld1 22:51 Drug: Zofran (Ondansetron) 4 mg Route: IVP; Site: right antecubital; ld1 22:56 Follow up: Response: No adverse reaction ld1 22:55 Drug: morphine 2 mg Route: IVP; Site: right antecubital; ld1 22:56 Follow up: Response: No adverse reaction ld1 07/16 00:08 CANCELLED (Physician Discretion): Ketorolac 15 mg IVP once bb 00:09 Drug: Potassium Effervescent Tablet 50 mEq Route: PO; bb 01:00 Follow up: Response: No adverse reaction bb 00:09 Drug: Ibuprofen 800 mg Route: PO; bb 01:00 Follow up: Response: No adverse reaction bb Disposition Summary: 07/16/21 02:32 Discharge Ordered Location: Home cp Problem: new cp Symptoms: have improved cp Condition: Stable cp Diagnosis - Chest pain, unspecified cp - Pain in right leg cp Followup: cp - With: Private Physician - When: 2 - 3 days - Reason: Recheck today's complaints Discharge Instructions: - Discharge Summary Sheet cp - Nonspecific Chest Pain, Adult cp - Aspirin and Your Heart cp - Form - Excuse from Work, School, or Physical Activity cp Forms: - Medication Reconciliation Form cp - Thank You Letter cp - Antibiotic Education cp - Prescription Opioid Use cp - Work release form mw2 Prescriptions: - Ibuprofen 800 mg Oral Tablet - take 1 tablet by ORAL route every 8 hours As needed take with food; 30 tablet; cp Refills: 0, Product Selection Permitted - Pepcid 20 mg Oral Tablet - take 1 tablet by ORAL route every 12 hours for 10 days; 20 tablet; Refills: 0, cp Product Selection Permitted Addendum: 07/18/2021 07:49 Co-signature as Attending Physician, Lisandro Judd MD I agree with the assessment and c espino plan of care. Signatures: Dispatcher [employer] [facility] Lisandro Judd MD MD cha Ballard, Brenda RN RN bb Lisandro Willard, PA PA cp Elizabeth Douglass, RN RN ld1 Corrections: (The following items were deleted from the chart) 07/15 22:59 22:43 CORONAVIRUS+BRZ ordered. [facility] 07/16 00:08 07/15 23:49 Ketorolac 15 mg IVP once ordered. kianna giles
[2021-07-16 03:29] VITALS: BP 109/56; TEMP 98.3; O2SAT 100
--- NOTE | 2021-07-16 10:28 | RAD REPORT ---
EXAM DESCRIPTION: USExtremity Venous Uni Ltd07/16/2021 2:33 am CLINICAL HISTORY: Right leg pain COMPARISON: None. FINDINGS: Right common femoral, superficial femoral, popliteal and right posterior tibial veins are compressible and demonstrate augmentation. Doppler demonstrates good flow. IMPRESSION: No evidence of deep venous thrombosis involving the right lower extremity.
--- NOTE | 2021-07-16 10:40 | RAD REPORT ---
EXAM DESCRIPTION: Anna Single View07/15/2021 10:59 pm CLINICAL HISTORY: Chest pain COMPARISON: none FINDINGS: The lungs appear clear of acute infiltrate. The heart is normal size IMPRESSION: No acute abnormalities displayed
--- NOTE | 2021-07-16 12:36 | EKG ---
Test Date: 2021-07-15 Test Time: 22:42:27 Lead Software Qa Engineer: WARREN MEASUREMENT RESULTS: Intervals: Rate: 69 SD: 156 QRSD: 74 QT: 388 QTc: 415 [place]: P: 57 SD: 156 QRS: 53 T: 46 INTERPRETIVE STATEMENTS: Normal sinus rhythm Normal ECG No previous ECG available for comparison Electronically Signed On 07-16-21 12:35:32 PUBLIC HEALTH PROGRAM MANAGER by Epifanio Brito
== END 2021-07-16 03:06 | disposition home or self-care (01) ==
LOC: ER 22:13
DX: R07.9 Chest pain, unspecified (principal); M79.604 Pain in right leg; Z20.822 Contact with and (suspected) exposure to COVID-19; Z91.011 Allergy to milk products; Z91.018 Allergy to other foods
CPT/HCPCS: 93005; 85025; 80048; 36415; 83735; 85610; 85379; 80076; 84484; 83880; 71045; 93971; 96375; 96374; 99285; U0003; J2405

== ENCOUNTER 2022-09-11 07:09 | Emergency (ER) | payer OTHER ==
--- OUTSIDE RECORDS SUMMARY | 2022-09-11 07:15 | XMS REPORT | Continuity of Care Document ---
:2000 Author Organization [facility] t Address [address] [place] [address] Care Team Providers Name Role Phone Declan Fermin DO Attending Clinician Rashid Moses Attending Clinician RASHID CHA Attending Clinician Unavailable Doctor Unassigned, [place] Attending Clinician Unavailable Visit, Qian Nurse Attending Clinician Unavailable Carla Ramos Attending Clinician [phone] CARLA RAJAN Attending Clinician Unavailable Fidelia Billings MD Attending Clinician Faculty, Han Marquez Attending Clinician Unavailable Leandro Neff MD Attending Clinician Ultrasound, Ayden Attending Clinician Unavailable Lab, Qian Attending Clinician Unavailable Fidelia Billings MD Admitting Clinician Payers Payer Name Policy Type Policy Number Effective Date Expiration Date Belinda CURTISS [id number] 2019 HEALTH 00:00:00 Problems Condition Condition Condition Status Onset Resolution Last Treating Co mments Source Name Details Category Date Date Treatment Clinician Date Disease Active U nivers care and care and 5-05 ity of examinatio examinatio [place] 00 Medical immediatel immediatel Br anch y after y after delivery delivery Obesity Obesity Disease Active 2020-0 Univers (BMI (BMI 4-11 ity of 30-39.9) 30-39.9) 00:00: [place] 00 Medical Branch 37 weeks 37 weeks Disease Active 2020-0 Unive rs gestation gestation 4-11 ity of of of 00:00: [place] 00 [facility] Chlamydia Chlamydia Disease Active 2020-0 Overview: Univers infection infection 2-19 Pending ity of during during 00:00: MICHAEL -neg [place] 00 [facility] Gonorrhea Gonorrhea Disease Active 2020-0 Overview: Univers in in 2-19 [place] at [place] of 00:[place] 00 [place] [facility] Susceptibl Susceptibl Disease Active 2020-0 Overview : Univers e to e to -19 Address ity of varicella varicella 00:[place]: [place] (non-immun (non-immun 00 Me dical e), e), Branch currently currently Supervisio Supervisio Disease Active 2020-0 U nivers n of n of 2-18 ity of high-risk high-risk 00:[place] 00 [facility] with with Branch insufficie insufficie nt nt care care Over Over Disease Active 2020-0 Univers weight weight 2-18 ity of 00:00: [place] [facility] Branch Multiparit Multiparit Disease Active 2020-0 U nivers y y 2-18 ity of 00:00: [place] [facility] History of History of Disease Active 2020-0 Overview : Univers bipolar bipolar 2-18 Not on ity of disorder disorder 00:00: meds x1 [place] year Medical Branch History of History of Disease Active 2020-0 Overview : Univers depression depression 2-18 Not on it y of 00:00: meds x1 [place] year Medical Branch History of History of Disease Active 2020-0 Overview : Univers anxiety anxiety 2-18 Not on ity of 00:00: meds x1 [place] year Medical Branch History of History of Disease Active 2020-0 Overview : Univers 2-18 Reports ity of [place] [address] [facility] 31weeks Branch ROR requested History of History of Disease Active 2020-0 U nivers ADHD ADHD 2-18 ity of 00:00: [place] [facility] Family Family Disease Active 2020-0 Overview: Univer s history of history of 2-18 Reports i ty of autism autism 00:00: cousins Medical Branch History of History of Disease Active Overview : Univers polyhydram polyhydram 2-18 Reports [...] ers INGREDI 01-02 ity of 00:00: [place] [facility] Social History Social Habit Start Date Stop Date Quantity Comments Source ASSERTION 2019-03-20 University of 00:00:00 [facility] [place] [facility] Exposure to Not sure [place] of SARS-CoV-2 [place] [facility] (event) Branch Tobacco use and 2020-01-07 2020-01-07 Never used Universit y of exposure 00:00:00 00:00:00 [facility] [place] [facility] Alcohol intake 2020-01-07 2020-01-07 Ex-drinker University of 00:00:00 00:00:00 (finding) [facility] [place] [facility] History SDOH 2019-11-22 2019-11-22 11 University o f Education 00:00:00 00:00:00 [facility] [place] [facility] Tobacco Comment 2013-06-10 2013-06-10 mom smokes Universit y of 00:00:00 00:00:00 outside [facility] [place] [facility] Sex Assigned At [birth year] Universit y of 00:00:00 00:00:00 [place] [facility] Smoking Status Start Date Stop Date Source Never smoker [facility] Branch Medications Ordered Filled Start Stop Current Ordering Indication Dosage Frequency Signature Comments Components Source Medication Medication Date Date Medication? Clinician (SIG) Name Name etonogestre 2019-2019- No [id number] 68mg Univers l 01-06 ity of (NEXPLANON) 16:00: 14:55 [place] implant 68 00 :00 Medical mg Branch etonogestre 2019-2019- No [id number] 68mg 68 mg, Univers l 01-06 Subdermal, ity of (NEXPLANON) 16:00: 14:55 ONCE NOW, [place] implant 68 00 :00 1 dose, Medica l mg [facility] 01/07/20 at 1100, Routine
Use approved by: COMMUNICATIONS PROFESSIONAL etonogestre 2019-2019- No [id number] 68mg Univers l 01-06 ity of (NEXPLANON) 16:00: 14:55 [place] implant 68 00 :00 Medical mg Branch etonogestre 2019- No [id number] 68mg 68 mg, Univers l 01-06 Subdermal, ity of (NEXPLANON) 16:00: 14:55 ONCE NOW, [place] implant 68 00 :00 1 dose, Medica l mg [facility] 01/07/20 at 1100, Routine
Use approved by: COMMUNICATIONS PROFESSIONAL lisdexamfet 2020- No 50mg Take 50 mg Univers amine 11-22-12 by mouth ity of (VYVANSE) 12:42: 00:00 every [place] 50 mg 10 :00 morning. Medical capsule Branch ARIPiprazol 2020- No 2mg Take 2 mg Univers e (ABILIFY) 11-22-12 by mouth ity of 2 mg tablet 12:42: 00:00 daily. [place] 10 :00 Medical Branch human 2019- Yes .5mL 0.5 mL, Univers papillomav 4-12 Intramuscu ity of vac,9-migel(P 12:26: lar, [place] F) 12 ONCE-PRIOR Medical (GARDASIL-9 TO Branch ) syringe DISCHARGE, 0.5 mL 1 dose, Starting 11/23/19 at 0726, Until Discontinu ed, Routine, Give vaccine prior to discharge varicella 2019- 2020- No .5mL 0.5 mL, Univ ers virus 11-22 04-13 Subcutaneo ity of vaccine 12:26: 16:35 us, [place] live 12 :00 ONCE-PRIOR Medical (VARIVAX TO Branch (PF)) DISCHARGE, injection 1 dose, 0.5 mL Starting 11/23/19 at 0726, Until Discontinu ed, Routine, Give vaccine prior to discharge rho(D) 2020-0 Yes 300ug 300 mcg, Univer s immune 4-12 Intramuscu ity of globulin 03:56: lar, ONCE, [place] as (RHOGAM) 35 For 1 Medical syringe 300 dose, Branch mcg Conditiona l, Routine simethicone 2020-0 Yes 160mg 160 mg, Un dustin (GAS [...] Discontinu ed, Routine, Pain (scale 1-3) diphenhydrA 2020-0 Yes 25mg 25 mg, IV U nivers [...] 27 Starting Medica l 400 mg/5 mL Sat Branch suspension 11/22/19 at 30 mL 2256, Until Discontinu ed, Routine, Constipati on naloxone 2020-0 2020- No .4mg 0.4 mg, Unive rs (NARCAN) 12 04-14 Slow IV ity of injection 00:13: 00:12 Push, PRN [place] 0.4 mg 34 :34 - SEE Medical INSTRUCTIO Branch NS, Starting 11/22/19 at 1913, Until 11/24/19 at 1912, Routine, Analgesia Recovery 2020-0 Yes [id number] 1{tbl} Take 1 Univers vitamin 4-12 tablet by ity of w/FA tablet 00:00: mouth [place] 00 daily. Medical Branch docusate 2020-0 Yes [id number] 240mg Take 1 U nivers calcium 240 4-12 capsule by it y of mg capsule 00:00: mouth once [place] 00 daily as Medical needed for Branch Constipati on. ferrous 2020-0 Yes [id number] 325mg Take 1 Un dustin sulfate 325 4-12 tablet by ity of mg (65 mg 00:00: mouth 2 [place] iron) 00 (two) Medical tablet times Branch daily. ibuprofen 2020-0 Yes [id number] 600mg Take 1 Univers 600 mg 4-12 tablet by ity of tablet 00:00: mouth [place] 00 every 6 Medical (six) Branch hours as needed (Pain). Take with food or milk. 2019-0 Yes [id number] 1{tbl} Take 1 Univers vitamin 4-12 tablet by ity of w/FA tablet 00:00: mouth [place] 00 daily. Medical Branch docusate 2020-0 Yes [id number] 240mg Take 1 U nivers calcium 240 4-12 capsule by it y of mg capsule 00:00: mouth once [place] 00 daily as Medical needed for Branch Constipati on. ferrous 2020-0 Yes [id number] 325mg Take 1 Un dustin sulfate 325 4-12 tablet by ity of mg (65 mg 00:00: mouth 2 [place] iron) 00 (two) Medical tablet times Branch daily. ibuprofen 2020-0 Yes [id number] 600mg Take 1 Univers 600 mg 4-12 tablet by ity of tablet 00:00: mouth [place] 00 every 6 Medical (six) Branch hours as needed (Pain). Take with food or milk. 2020-0 Yes [id number] 1{tbl} Take 1 Univers vitamin 4-12 tablet by ity of w/FA tablet 00:00: mouth [place] 00 daily. Medical Branch docusate 2020-0 Yes [id number] 240mg Take 1 U nivers calcium 240 4-12 capsule by it y of mg capsule 00:00: mouth once [place] 00 daily as Medical needed for Branch Constipati on. ferrous 2020-0 Yes [id number] 325mg Take 1 Un dustin sulfate 325 4-12 tablet by ity of mg (65 mg 00:00: mouth 2 [place] iron) 00 (two) Medical tablet times Branch daily. ibuprofen 2020-0 Yes [id number] 600mg Take 1 Univers 600 mg 4-12 tablet by ity of tablet 00:00: mouth [place] 00 every 6 Medical (six) Branch hours as needed (Pain). Take with food or milk. 2020-0 Yes [id number] 1{tbl} Take 1 Univers vitamin 4-12 tablet by ity of w/FA tablet 00:00: mouth [place] 00 daily. Medical Branch docusate 2020-0 Yes [id number] 240mg Take 1 U nivers calcium 240 4-12 capsule by it y of mg capsule 00:00: mouth once [place] 00 daily as Medical needed for Branch Constipati on. ferrous 2020-0 Yes [id number] 325mg Take 1 Un dustin sulfate 325 4-12 tablet by ity of mg (65 mg 00:00: mouth 2 [place] iron) 00 (two) Medical tablet times Branch daily. ibuprofen 2020-0 Yes [id number] 600mg Take 1 Univers 600 mg 4-12 tablet by ity of tablet 00:00: mouth [place] 00 every 6 Medical (six) Branch hours as needed (Pain). Take with food or milk. 2020-0 Yes [id number] 1{tbl} Take 1 Univers vitamin 4-12 tablet by ity of w/FA tablet 00:00: mouth [place] 00 daily. Medical Branch docusate 2020-0 Yes [id number] 240mg Take 1 U nivers calcium 240 4-12 capsule by it y of mg capsule 00:00: mouth once [place] 00 daily as Medical needed for Branch Constipati on. ferrous 2020-0 Yes [id number] 325mg Take 1 Un dustin sulfate 325 4-12 tablet by ity of mg (65 mg 00:00: mouth 2 [place] iron) 00 (two) Medical tablet times Branch daily. ibuprofen 2020-0 Yes [id number] 600mg Take 1 Univers 600 mg 4-12 tablet by ity of tablet 00:00: mouth [place] 00 every 6 Medical (six) Branch hours as needed (Pain). Take with food or milk. 2020-0 Yes [id number] 1{tbl} Take 1 Univers vitamin 4-12 tablet by ity of w/FA tablet 00:00: mouth [place] 00 daily. Medical Branch docusate 2020-0 Yes [id number] 240mg Take 1 U nivers calcium 240 4-12 capsule by it y of mg capsule 00:00: mouth once [place] 00 daily as Medical needed for Branch Constipati on. ferrous 2020-0 Yes [id number] 325mg Take 1 Un dustin sulfate 325 4-12 tablet by ity of mg (65 mg 00:00: mouth 2 [place] iron) 00 (two) Medical tablet times Branch daily. ibuprofen 2020-0 Yes [id number] 600mg Take 1 Univers 600 mg 4-12 tablet by ity of tablet 00:00: mouth [place] 00 every 6 Medical (six) Branch hours as needed (Pain). Take with food or milk. 2019-0 Yes [id number] 1{tbl} Take 1 Univers vitamin 4-12 tablet by ity of w/FA tablet 00:00: mouth [place] 00 daily. Medical Branch docusate 2019-0 Yes [id number] 240mg Take 1 U nivers calcium 240 4-12 capsule by it y of mg capsule 00:00: mouth once [place] 00 daily as Medical needed for Branch Constipati on. ferrous 2020-0 Yes [id number] 325mg Take 1 Un dustin sulfate 325 4-12 tablet by ity of mg (65 mg 00:00: mouth 2 [place] iron) 00 (two) Medical tablet times Branch daily. ibuprofen 2019-0 Yes [id number] 600mg Take 1 Univers 600 mg 4-12 tablet by ity of tablet 00:00: mouth [place] 00 every 6 Medical (six) Branch hours as needed (Pain). Take with food or milk. HYDROcodone 2019- No [id number] 1{tbl} Take 1 Univers -acetaminop 4-12 04-20 tablet by it y of hen 5-325 00:00: 04:59 mouth [place] mg tablet 00 :00 every 6 Medical (six) Branch hours as needed (for pain) for up to 7 days. Do not exceed 3 grams of acetaminop hen in 24 hours. HYDROcodone 2019- No [id number] 1{tbl} Take 1 Univers -acetaminop 4-12 04-20 tablet by it y of hen 5-325 00:00: 04:59 mouth [place] mg tablet 00 :00 every 6 Medical (six) Branch hours as needed (for pain) for up to 7 days. Do not exceed 3 grams of acetaminop hen in 24 hours. lactated 2020-0 2020- No 1000mL at 125 Univ ers ringers IV 11-21 04-12 mL/hr, ity of infusion 23:00: 03:56 1,000 mL, [place] 1,000 mL 00 :36 IV Medical Infusion, Branch CONTINUOUS , Starting 11/22/19 at 1800, Until 11/22/19 at 2256, Routine sodium 2020-0 2020- No 30mL 30 mL, Univers citrate-cit 11-2111 Oral, ity of ramila acid 22:47: 22:57 PRE-PROCED [place] (BICITRA) 25 :00 URE ONCE, Medic al 500-334 1 dose, Branch mg/5 mL Starting solution 30 Sat mL 11/22/19 at 1747, Until Discontinu ed, Routine, Surgery ceFAZolin 2019- No 2000mg 2 g (2,000 Univers in dextrose 11-21 mg), IV ity of (iso-os) 22:47: 22:57 Piggyback, [place] (ANCEF) 2 25 :00 O.R. Medical gram/100 mL HOLDING Branc h Piggyback 2 ONCE, 1 g dose, Starting 11/22/19 at 1747, Until Discontinu ed, 100 mL
Reas on for Anti-Infec tive: Surgical Prophylaxi s
Surgi ashley Prophylaxi s: COMM[employer]ICATIONS PROFESSIONAL
Duration of therapy: within 24 hours of surgery lactated 2020-0 2020- No 500mL at 999 Unive rs ringers IV 11-21-11 mL/hr, 500 it y of infusion 20:00: 20:40 mL, IV [place] 500 mL 00 :00 Infusion, Medical ONCE, 1 Branch dose, 11/22/19 at 1500, Routine D5W-LR IV 2019-0 2020- No 1000mL at 125 Uni vers infusion 11-21-12 mL/hr, IV ity o f 1,000 mL 19:00: 03:56 Infusion, [place] 00 :36 CONTINUOUS Medical , Starting Branch 11/22/19 at 1400, Until 11/22/19 at 2256, Routine sodium 2020-0 2020- No 30mL 30 mL, Univers citrate-cit 11-21 Oral, ity of ramila acid 18:50: 21:27 PRE-PROCED [place] (BICITRA) 33 :00 URE ONCE, Medic al 500-334 1 dose, Branch mg/5 mL Starting solution 30 Sat mL 11/22/19 at 1350, Until 11/22/19 at 1627, Routine, Surgery/Pr ocedure LR 1000 mL 2020- No 2mU/min 2-40 Uni vers + oxytocin 11-21 zhanna-unit it y of 20 units IV [...] [place] iron) 00 daily. Medical tablet Branch 2019-0 Yes 1{tbl} Take 1 Unive rs Vit-Iron 3-02 tablet by ity of Fumarate-FA 00:00: mouth [place] (RIGHT STEP 00 daily. Medica l [facility] VITAMINS) 27 mg iron- 0.8 mg per tablet ferrous 2020-0 Yes 325mg Take 1 Univers sulfate 325 3-02 tablet by ity of mg (65 mg 00:00: mouth [place] iron) 00 daily. Medical tablet Branch 2020- No 1{tbl} Take 1 Univ ers Vit-Iron 3-02 04-12 tablet by ity o f Fumarate-FA 00:00: 00:00 mouth [place] (RIGHT STEP 00 :00 daily. Medica l [facility] VITAMINS) 27 mg iron- 0.8 mg per tablet ferrous 2019- No 325mg Take 1 Univer s sulfate 325 3-02 04-12 tablet by it y of mg (65 mg 00:00: 00:00 mouth [place] iron) 00 :00 daily. Medical tablet Branch cefTRIAXone 2019- No 250mg Univ ers (ROCEPHIN) 10-02 ity of injection 17:00: 15:52 [place] 250 mg 00 :00 Medical Branch cefTRIAXone 2019- No 250mg 250 mg, U nivers (ROCEPHIN) 10-02 Intramuscu it y of injection 17:00: 15:52 lar, ONCE, [place] 250 mg 00 :00 1 dose, Medical [place] Branch 10/02/19 at 1100, GILBERT
Re ason for Anti-Infec tive: Documented Infection< br>Documen gianna Infection Site: Other
O ther site: vagina
Duration of Therapy: Other (see Comments) azithromyci 2019-2019- No [id number] 1000mg Take 2 Univers n 500 mg -20 tablets by ity of tablet 00:00: 05:59 mouth once [place] 00 :00 now for 1 Medical dose. Branch azithromyci 2019- No [id number] 1000mg Take 2 Univers n 500 mg 2-19 02-20 tablets by ity of tablet 00:00: 05:59 mouth once [facility] 00 :00 now for 1 Medical dose. Branch ARIPiprazol 2020-0 Yes 2mg Take 2 mg U nivers e (ABILIFY) 2-18 by mouth ity of 2 mg tablet 19:58: daily. [place] [address] Medical Branch lisdexamfet 2019-0 Yes 50mg Take 50 mg Univers amine 2-18 by mouth ity of (VYVANSE) 19:58: every [place] 50 mg 26 morning. Medical capsule Branch ARIPiprazol 2020-0 Yes 2mg Take 2 mg U nivers e (ABILIFY) 2-18 by mouth ity of 2 mg tablet 19:58: daily. [place] [address] Medical Branch lisdexamfet 2020-0 Yes 50mg Take 50 mg Univers amine 2-18 by mouth ity of (VYVANSE) 19:58: every [place] 50 mg 26 morning. Medical capsule Branch ARIPiprazol 2020-0 Yes 2mg Take 2 mg U nivers e (ABILIFY) 2-18 by mouth ity of 2 mg tablet 19:58: daily. [place] [address] Medical Branch lisdexamfet 2019-0 Yes 50mg Take 50 mg Univers amine 2-18 by mouth ity of (VYVANSE) 19:58: every [place] 50 mg 26 morning. Medical capsule Branch ARIPiprazol 2020-0 Yes 2mg Take 2 mg U nivers e (ABILIFY) 2-18 by mouth ity of 2 mg tablet 19:58: daily. [place] [address] Medical Branch lisdexamfet 2020-0 Yes 50mg Take 50 mg Univers amine 2-18 by mouth ity of (VYVANSE) 19:58: every [place] 50 mg 26 morning. Medical capsule Branch ARIPiprazol 2020-0 Yes 2mg Take 2 mg U nivers e (ABILIFY) 2-18 by mouth ity of 2 mg tablet 19:58: daily. [address] Branch lisdexamfet 2020-0 Yes 50mg Take 50 mg Univers amine 2-18 by mouth ity of (VYVANSE) 19:58: every [place] 50 mg 26 morning. Medical capsule Branch ARIPiprazol 2020-0 Yes 2mg Take 2 mg U nivers e (ABILIFY) 2-18 by mouth ity of 2 mg tablet 19:58: daily. [place] [address] Medical Branch lisdexamfet 2020-0 Yes 50mg Take 50 mg Univers amine 2-18 by mouth ity of (VYVANSE) 19:58: every [place] 50 mg 26 morning. Medical capsule Branch ARIPiprazol 2020-0 Yes 2mg Take 2 mg U nivers e (ABILIFY) 2-18 by mouth ity of 2 mg tablet 19:58: daily. [place] [address] Medical Branch lisdexamfet 2020-0 Yes 50mg Take 50 mg Univers amine 2-18 by mouth ity of (VYVANSE) 19:58: every [place] 50 mg 26 morning. Medical capsule Branch ARIPiprazol 2020-0 Yes 2mg Take 2 mg U nivers e (ABILIFY) 2-18 by mouth ity of 2 mg tablet 19:58: daily. [address] Branch lisdexamfet 2020-0 Yes 50mg Take 50 mg Univers amine 2-18 by mouth ity of (VYVANSE) 19:58: every [place] 50 mg 26 morning. Medical capsule Branch ARIPiprazol 2020-0 Yes 2mg Take 2 mg U nivers e (ABILIFY) 2-18 by mouth ity of 2 mg tablet 19:58: daily. [address] lisdexamfet 2020-0 Yes 50mg Take 50 mg Univers amine 2-18 by mouth ity of (VYVANSE) 19:58: every [place] 50 mg 26 morning. Medical capsule Branch ARIPiprazol 2020-0 Yes 2mg Take 2 mg U nivers e (ABILIFY) 2-18 by mouth ity of 2 mg tablet 19:58: daily. [address] Branch lisdexamfet 2020-0 Yes 50mg Take [...] ity of 2 mg tablet 19:58: daily. [address] Branch lisdexamfet 2020-0 Yes 50mg Take 50 mg Univers amine 2-18 by mouth ity of (VYVANSE) 19:58: every [place] 50 mg 26 morning. Medical capsule Branch ARIPiprazol 2020-0 Yes 2mg Take 2 mg U nivers e (ABILIFY) 2-18 by mouth ity of 2 mg tablet 19:58: daily. [place] [address] Medical Branch lisdexamfet 2020-0 Yes 50mg Take 50 mg Univers amine 2-18 by mouth ity of (VYVANSE) 19:58: every [place] 50 mg 26 morning. Medical capsule Branch ARIPiprazol 2020-0 Yes 2mg Take 2 mg U nivers e (ABILIFY) 2-18 by mouth ity of 2 mg tablet 19:58: daily. [address] Branch lisdexamfet 2019-0 Yes 50mg Take 50 mg Univers amine 2-18 by mouth ity of (VYVANSE) 19:58: every [place] 50 mg 26 morning. Medical capsule Branch ARIPiprazol 2020-0 Yes 2mg Take 2 mg U nivers e (ABILIFY) 2-18 by mouth ity of 2 mg tablet 19:58: daily. [place] [address] Medical Branch lisdexamfet 2020-0 Yes 50mg Take 50 mg Univers amine 2-18 by mouth ity of (VYVANSE) 19:58: every [place] 50 mg 26 morning. Medical capsule Branch ARIPiprazol 2020-0 Yes 2mg Take 2 mg U nivers e (ABILIFY) 2-18 by mouth ity of 2 mg tablet 19:58: daily. [address] Branch lisdexamfet 2020-0 Yes 50mg Take 50 mg Univers amine 2-18 by mouth ity of (VYVANSE) 19:58: every [place] 50 mg 26 morning. Medical capsule Branch ARIPiprazol 2020-0 Yes 2mg Take 2 mg U nivers e (ABILIFY) 2-18 by mouth ity of 2 mg tablet 19:58: daily. [address] Branch lisdexamfet 2019-0 Yes 50mg Take 50 mg Univers amine 2-18 by mouth ity of (VYVANSE) 19:58: every [place] 50 mg 26 morning. Medical capsule Branch ARIPiprazol 2019-0 Yes 2mg Take 2 mg U nivers e (ABILIFY) 2-18 by mouth ity of 2 mg tablet 19:58: daily. [address] Branch lisdexamfet 2019-0 Yes 50mg Take 50 mg Univers amine 2-18 by mouth ity of (VYVANSE) 19:58: every [place] 50 mg 26 morning. Medical capsule Branch ARIPiprazol 2019-0 Yes 2mg Take 2 mg U nivers e (ABILIFY) 2-18 by mouth ity of 2 mg tablet 19:58: daily. [address] Branch lisdexamfet 2019-0 Yes 50mg Take 50 mg Univers amine 2-18 by mouth ity of (VYVANSE) 19:58: every [place] 50 mg 26 morning. Medical capsule Branch ARIPiprazol 2019-0 Yes 2mg Take 2 mg U nivers e (ABILIFY) 2-18 by mouth ity of 2 mg tablet 19:58: daily. [address] lisdexamfet 2019-0 Yes 50mg Take 50 mg Univers amine 2-18 by mouth ity of (VYVANSE) 19:58: every [place] 50 mg 26 morning. Medical capsule Branch lisdexamfet Yes 50mg Take 50 mg Univers amine 5-05 by mouth ity of (VYVANSE) 14:18: every [place] 50 mg 37 morning. Medical capsule Branch ARIPiprazol 0 Yes 2mg Take 2 mg U nivers e (ABILIFY) 5-05 by mouth ity of 2 mg tablet 14:18: daily. [facility] Somatropin Yes [id number] 3mg inject 3 Univers (NORDITROPI 5-05 mg under ity of N FLEXPRO) 00:00: the skin [place] 15 mg/1.5 00 daily. Medical mL (10 Branch mg/mL) PnIj Somatropin 2014-0 Yes [id number] 3mg inject 3 Univers (NORDITROPI 5-05 mg under ity of N FLEXPRO) 00:00: the skin [place] 15 mg/1.5 00 daily. Medical mL (10 Branch mg/mL) PnIj Somatropin 2014-0 Yes [id number] 3mg inject 3 Univers (NORDITROPI 5-05 mg under ity of N FLEXPRO) 00:00: the skin [place] 15 mg/1.5 00 daily. Medical mL (10 Branch mg/mL) PnIj Somatropin 2014- Yes [id number] 3mg inject 3 Univers (NORDITROPI 5-05 mg under ity of N FLEXPRO) 00:00: the skin [place] 15 mg/1.5 00 daily. Medical mL (10 Branch mg/mL) PnIj Somatropin 2014- Yes [id number] 3mg inject 3 Univers (NORDITROPI 5-05 mg under ity of N FLEXPRO) 00:00: the skin [place] 15 mg/1.5 00 daily. Medical mL (10 Branch mg/mL) PnIj Somatropin 2014- Yes [id number] 3mg inject 3 Univers (NORDITROPI 5-05 mg under ity of N FLEXPRO) 00:00: the skin [place] 15 mg/1.5 00 daily. Medical mL (10 Branch mg/mL) PnIj Somatropin 2014- Yes [id number] 3mg inject 3 Univers (NORDITROPI 5-05 mg under ity of N FLEXPRO) 00:00: the skin [place] 15 mg/1.5 00 daily. Medical mL (10 Branch mg/mL) PnIj Somatropin 2014-0 Yes [id number] 3mg inject 3 Univers (NORDITROPI 5-05 mg under ity of N FLEXPRO) 00:00: the skin [place] 15 mg/1.5 00 daily. Medical mL (10 Branch mg/mL) PnIj Somatropin 2014-0 Yes [id number] 3mg inject 3 Univers (NORDITROPI 5-05 mg under ity of N FLEXPRO) 00:00: the skin [place] 15 mg/1.5 00 daily. Medical mL (10 Branch mg/mL) PnIj Somatropin 2014- Yes [id number] 3mg inject 3 Univers (NORDITROPI 5-05 mg under ity of N FLEXPRO) 00:00: the skin [place] 15 mg/1.5 00 daily. Medical mL (10 Branch mg/mL) PnIj Somatropin 2014-0 Yes [id number] 3mg inject 3 Univers (NORDITROPI 5-05 mg under ity of N FLEXPRO) 00:00: the skin [place] 15 mg/1.5 00 daily. Medical mL (10 Branch mg/mL) PnIj Somatropin 2014-0 Yes [id number] 3mg inject 3 Univers (NORDITROPI 5-05 mg under ity of N FLEXPRO) 00:00: the skin [place] 15 mg/1.5 00 daily. Medical mL (10 Branch mg/mL) PnIj Somatropin 2014-0 Yes [id number] 3mg inject 3 Univers (NORDITROPI 5-05 mg under ity of N FLEXPRO) 00:00: the skin [place] 15 mg/1.5 00 daily. Medical mL (10 Branch mg/mL) PnIj Somatropin 2014-0 Yes [id number] 3mg inject 3 Univers (NORDITROPI 5-05 mg under ity of N FLEXPRO) 00:00: the skin [place] 15 mg/1.5 00 daily. Medical mL (10 Branch mg/mL) PnIj Somatropin 2014-0 Yes [id number] 3mg inject 3 Univers (NORDITROPI 5-05 mg under ity of N FLEXPRO) 00:00: the skin [place] 15 mg/1.5 00 daily. Medical mL (10 Branch mg/mL) PnIj Somatropin 2014-0 Yes [id number] 3mg inject 3 Univers (NORDITROPI 5-05 mg under ity of N FLEXPRO) 00:00: the skin [place] 15 mg/1.5 00 daily. Medical mL (10 Branch mg/mL) PnIj Somatropin 2014-0 Yes [id number] 3mg inject 3 Univers (NORDITROPI 5-05 mg under ity of N FLEXPRO) 00:00: the skin [place] 15 mg/1.5 00 daily. Medical mL (10 Branch mg/mL) PnIj Somatropin 2014-0 Yes [id number] 3mg inject 3 Univers (NORDITROPI 5-05 mg under ity of N FLEXPRO) 00:00: the skin Juan as 15 mg/1.5 00 daily. Medical mL (10 Branch mg/mL) PnIj Somatropin Yes [id number] 3mg inject 3 Univers (NORDITROPI 5-05 mg under ity of N FLEXPRO) 00:00: the skin Juan as 15 mg/1.5 00 daily. Medical mL (10 Branch mg/mL) PnIj Somatropin Yes [id number] 3mg inject 3 Univers (NORDITROPI 5-05 mg under ity of N FLEXPRO) 00:00: the skin Juan as 15 mg/1.5 00 daily. Medical mL (10 Branch mg/mL) PnIj Somatropin Yes [id number] 3mg inject 3 Univers (NORDITROPI 5-05 mg under ity of N FLEXPRO) 00:00: the skin Juan as 15 mg/1.5 00 daily. Medical mL (10 Branch mg/mL) PnIj Somatropin 2020- No [id number] 3mg inject 3 Univers (NORDITROPI 5-05 04-12 mg under ity of N FLEXPRO) 00:[place]/1.5 00 :00 daily. Medical mL (10 Branch mg/mL) Thelma acetaminoph 2013-08 Yes Univer s en-codeine 1-25 [...] acetaminoph 2013-08 2020- No Unive rs en-codeine 1-25 -12 ity of (TYLENOL 00:00: 00:00 [place] #3) 300-30 00 :00 Medical mg tablet Branch Immunizations Ordered Filled Immunization Date Status Comments [facility] e Immunization Name Name Varicella 2019-11-24 [...] y of Vaccine Quad .5 mL 00:00:00 [facility] IM 6+ MO Branch Tdap 2019-09-30 Completed University of 00:00:00 [facility] Influenza Virus 2019-09-30 Completed Universit y of Vaccine Quad .5 mL 00:00:00 [facility] IM 6+ MO Branch Tdap 2019-09-30 Completed University of 00:00:00 [facility] Influenza Virus 2019-09-30 Completed Universit y of Vaccine [facility] .5 mL 00:00:00 [facility] 6+ [place] Tdap 2019-09-30 Completed University of 00:00:00 [facility] Influenza Virus 2019-09-30 Completed Universit y of Vaccine [facility] .5 mL 00:00:00 [facility] 6+ MO Branch Tdap 2019-09-30 Completed University of 00:00:00 [facility] Influenza Virus 2019-09-30 Completed Universit y of Vaccine [facility] .5 mL 00:00:00 [place] [facility] 6+ MO Branch Tdap 2019-09-30 Completed University of 00:00:00 [facility] Influenza Virus 2019-09-30 Completed Universit y of Vacc[facility] [place] .5 mL 00:00:00 [place] [facility] 6+ MO Branch Tdap 2019-09-30 Completed University of 00:00:00 [facility] Influenza Virus 2019-09-30 Completed Universit y of Vaccine [facility] .5 mL 00:00:00 [place] [facility] 6+ MO Branch Tdap 2019-09-30 Completed University of 00:00:00 [facility] Influenza Virus 2019-09-30 Completed Universit y of Vaccine [place] .5 mL 00:00:00 [facility] 6+ MO Branch Tdap 2019-09-30 Completed University of 00:00:00 [facility] Influenza Virus 2019-09-30 Completed Universit y of Vaccine [place] .5 mL 00:00:00 [facility] 6+ MO Branch Tdap 2019-09-30 Completed University of 00:00:00 [facility] Influenza Virus 2019-09-30 Completed Universit y of Vaccine [facility] .5 mL 00:00:00 [facility] 6+ MO Branch Tdap 2019-09-30 Completed University of 00:00:00 [facility] Influenza Virus 2019-09-30 Completed Universit y of Vaccine [facility] .5 mL 00:00:00 [facility] 6+ MO Branch Tdap 2019-09-30 Completed University of 00:00:00 [facility] Influenza Virus 2019-09-30 Completed Universit y of Vaccine [facility] .5 mL 00:00:00 [facility] 6+ MO Branch Tdap 2019-09-30 Completed University of 00:00:00 [facility] Influenza Virus 2019-09-30 Completed Universit y of Vaccine [facility] .5 mL 00:00:00 [place] [facility] 6+ MO Branch Tdap 2019-09-30 Completed University of 00:00:00 [facility] [place] [facility] Influenza Virus 2019-09-30 Completed Universit y of Vaccine [facility] .5 mL 00:00:00 [place] [facility] 6+ MO Branch Tdap 2019-09-30 Completed University of 00:00:00 [facility] Influenza Virus 2019-09-30 Completed Universit y of Vaccine [facility] .5 mL 00:00:00 [place] [facility] 6+ MO Branch Tdap 2019-09-30 Completed University of 00:00:00 [facility] Influenza Virus 2019-09-30 Completed Universit y of Vaccine [facility] .5 mL 00:00:00 [place] [facility] 6+ MO Branch Tdap 2019-09-30 Completed University of 00:00:00 [facility] Influenza Virus 2019-09-30 Completed Universit y of Vaccine [facility] .5 mL 00:00:00 [facility] 6+ MO Branch Tdap 2019-09-30 Completed University of 00:00:00 [facility] Influenza Virus 2019-09-30 Completed Universit y of Vaccine [facility] .5 mL 00:00:00 [facility] 6+ MO Branch Tdap 2019-09-30 Completed University of 00:00:00 [facility] Influenza Virus 2019-09-30 Completed Universit y of Vaccine [facility] .5 mL 00:00:00 [facility] 6+ MO Branch Tdap 2019-09-30 Completed University of 00:00:00 [facility] Influenza Virus 2019-09-30 Completed Universit y of Vaccine Quad .5 mL 00:00:00 [facility] 6+ MO Branch Tdap 2019-09-30 Completed University of 00:00:00 [facility] Influenza Virus 2019-09-30 Completed Universit y of Vaccine [facility] .5 mL 00:00:00 [facility] 6+ MO Branch Tdap 2019-09-30 Completed University of 00:00:00 [facility] Influenza Virus 2019-09-30 Completed Universit y of Vaccine Quad .5 mL 00:00:00 [facility] 6+ MO Branch Tdap 2019-09-30 Completed University of 00:00:00 [facility] [place] [facility] Influenza Virus 2019-09-30 Completed Universit y of Vaccine Quad .5 mL 00:00:00 [facility] 6+ MO Branch TDAP 2019-09-30 Completed University of 00:00:00 [facility] Influenza Virus 2019-09-30 Completed Universit y of Vaccine [facility] .5 mL 00:00:00 [facility] 6+ MO Branch Tdap 2019-09-30 Completed University of 00:00:00 [facility] Influenza Virus 2019-09-30 Completed Universit y of Vaccine Quad .5 mL 00:00:00 [facility] 6+ MO Branch Tdap 2019-09-30 Completed University of 00:00:00 [facility] Influenza Virus 2019-09-30 Completed Universit y of Vaccine [facility] .5 mL 00:00:00 [place] [facility] IM 6+ MO Branch Tdap 2019-09-30 Completed University 00:00:00 [facility] Influenza Virus 2019-09-30 Completed Universit y of Vaccine Quad .5 mL 00:00:00 [place] [facility] IM 6+ MO Branch Tdap 2019-09-30 Completed University 00:00:00 [facility] Vital Signs Vital Name Observation Time Observation Value Comments Source Systolic blood 2020-01-07 14:30:00 108 mm[Hg] Univer sity of pressure [facility] Diastolic blood 2020-01-07 14:30:00 67 mm[Hg] Unive rsity of pressure [facility] Heart rate 2020-01-07 14:30:00 66 /min Universi ty of [facility] Body temperature 2020-01-07 14:30:00 36.56 [facility] Univ ersity of [facility] Respiratory rate 2020-01-07 14:30:00 16 /min Univ ersity of [facility] Body height 2020-01-07 14:30:00 152.4 cm Universi ty of [facility] Body weight 2020-01-07 14:30:00 68.55 kg Universi ty of [facility] Branch BMI 2020-01-07 14:30:00 29.51 kg/m2 Universi ty of [facility] [place] [facility] Branch Systolic blood 2019-11-28 20:21:00 112 mm[Hg] Univer sity of pressure [facility] Diastolic blood 2019-11-28 20:21:00 77 mm[Hg] Unive rsity of pressure [facility] Heart rate 2019-11-28 20:21:00 83 /min Universi ty of [facility] Branch Body temperature 2019-11-28 20:21:00 36.56 [place] Univ ersity of [facility] Branch Respiratory rate 2019-11-28 20:21:00 16 /min Univ ersity of [facility] Body height 2019-11-28 20:21:00 152.4 cm Universi ty of [facility] Body weight 2019-11-28 20:21:00 70.081 kg Universi ty of [facility] Branch BMI 2019-11-28 20:21:00 30.17 kg/m2 Universi ty of [place] [facility] Systolic blood 2019-11-28 20:21:00 112 mm[Hg] Univer sity of pressure [facility] [place] [facility] Diastolic blood 2019-11-28 20:21:00 77 mm[Hg] Unive rsity of pressure [facility] [place] [facility] Heart rate 2019-11-28 20:21:00 83 /min Universi ty of [facility] Branch Body temperature 2019-11-28 20:21:00 36.56 [place] Univ ersity of [facility] Branch Respiratory rate 2019-11-28 20:21:00 16 /min Univ ersity of [facility] Branch Body height 2019-11-28 20:21:00 152.4 cm Universi ty of [facility] [place] [facility] Body weight 2019-11-28 20:21:00 70.081 kg Universi ty of [facility] Branch BMI 2019-11-28 20:21:00 30.17 kg/m2 Universi ty of [facility] Branch Systolic blood 2019-11-24 12:57:00 117 mm[Hg] Univer sity of pressure [facility] Branch Diastolic blood 2019-11-24 12:57:00 59 mm[Hg] Unive rsity of pressure [facility] Branch Heart rate 2019-11-24 12:57:00 99 /min Universi ty of [facility] Branch Body temperature 2019-11-24 12:57:00 36.44 [place] Univ ersity of [facility] Branch Respiratory rate 2019-11-24 12:57:00 18 /min Univ ersity of [facility] Oxygen saturation in 2019-11-24 12:57:00 100 /min University Arterial blood by [facility] Pulse oximetry Branch Body height 2019-11-22 17:18:00 152.4 cm Universi ty of [facility] [place] [facility] Body weight 2019-11-22 17:18:00 72.122 kg Universi ty of [place] [facility] BMI 2019-11-22 17:18:00 31.05 kg/m2 Universi ty of [facility] Branch Systolic blood 2019-11-24 12:57:00 117 mm[Hg] Univer sity of pressure [facility] Branch Diastolic blood 2019-11-24 12:57:00 59 mm[Hg] Unive rsity of pressure [facility] Branch Heart rate 2019-11-24 12:57:00 99 /min Universi ty of [facility] Branch Body temperature 2019-11-24 12:57:00 36.44 [facility] Univ ersity of [place] [facility] Respiratory rate 2019-11-24 12:57:00 18 /min Univ ersity of [facility] Branch Oxygen saturation in 2019-11-24 12:57:00 100 /min University Arterial blood by [facility] Pulse oximetry Branch Body height 2019-11-22 17:18:00 152.4 cm Universi ty of [place] [facility] [place] Body weight 2019-11-22 17:18:00 72.122 kg Universi ty of [facility] [place] [facility] BMI 2019-11-22 17:18:00 31.05 kg/m2 Universi ty of [facility] Branch Systolic blood 2019-11-18 13:42:00 124 mm[Hg] Univer sity of pressure [facility] Branch Diastolic blood 2019-11-18 13:42:00 70 mm[Hg] Unive rsity of pressure [facility] Branch Heart rate 2019-11-18 13:42:00 79 /min Universi ty of [facility] Body temperature 2019-11-18 13:42:00 36.17 [facility] Univ ersity of [facility] Respiratory rate 2019-11-18 13:42:00 16 /min Univ ersity of [facility] Branch Body height 2019-11-18 13:42:00 152.4 cm Universi ty of [facility] Branch Body weight 2019-11-18 13:42:00 73.057 kg Universi ty of [facility] Branch BMI 2019-11-18 13:42:00 31.46 kg/m2 Universi ty of [facility] Branch Systolic blood 2019-11-18 13:42:00 124 mm[Hg] Univer sity of pressure [facility] Diastolic blood 2019-11-18 13:42:00 70 mm[Hg] Unive rsity of pressure [facility] Heart rate 2019-11-18 13:42:00 79 /min Universi ty of [facility] Branch Body temperature 2019-11-18 13:42:00 36.17 [facility] Univ ersity of [facility] Branch Respiratory rate 2019-11-18 13:42:00 16 /min Univ ersity of [facility] Branch Body height 2019-11-18 13:42:00 152.4 cm Universi ty of [facility] Body weight 2019-11-18 13:42:00 73.057 kg Universi ty of [facility] Branch BMI 2019-11-18 13:42:00 31.46 kg/m2 Universi ty of [place] [facility] Systolic blood 2019-11-11 13:57:00 118 mm[Hg] Univer sity of pressure [facility] Diastolic blood 2019-11-11 13:57:00 69 mm[Hg] Unive rsity of pressure [facility] Heart rate 2019-11-11 13:57:00 82 /min Universi ty of [facility] Body temperature 2019-11-11 13:57:00 36.33 [facility] Univ ersity of [facility] Respiratory rate 2019-11-11 13:57:00 16 /min Univ ersity of [facility] Body height 2019-11-11 13:57:00 152.4 cm Universi ty of [facility] Body weight 2019-11-11 13:57:00 71.697 kg Universi ty of [facility] BMI 2019-11-11 13:57:00 30.87 kg/m2 Universi ty of [facility] Systolic blood 2019-11-11 13:57:00 118 mm[Hg] Univer sity of pressure [facility] Diastolic blood 2019-11-11 13:57:00 69 mm[Hg] Unive rsity of pressure [facility] Heart rate 2019-11-11 13:57:00 82 /min Universi ty of [facility] Body temperature 2019-11-11 13:57:00 36.33 [facility] Univ ersity of [facility] Respiratory rate 2019-11-11 13:57:00 16 /min Univ ersity of [facility] Body height 2019-11-11 13:57:00 152.4 cm Universi ty of [facility] Body weight 2019-11-11 13:57:00 71.697 kg Universi ty of [facility] [place] [facility] BMI 2019-11-11 13:57:00 30.87 kg/m2 Universi ty of [facility] [place] [facility] Systolic blood 2019-10-27 15:32:00 114 mm[Hg] Univer sity of pressure [facility] Diastolic blood 2019-10-27 15:32:00 66 mm[Hg] Unive rsity of pressure [place] [facility] Heart rate 2019-10-27 15:32:00 83 /min Universi ty of [facility] [place] [facility] Body temperature 2019-10-27 15:32:00 36.89 [facility] Univ ersity of [facility] [place] [facility] Respiratory rate 2019-10-27 15:32:00 16 /min Univ ersity of [facility] Body height 2019-10-27 15:32:00 152.4 cm Universi ty of [facility] Body weight 2019-10-27 15:32:00 70.308 kg Universi ty of [facility] [place] [facility] BMI 2019-10-27 15:32:00 30.27 kg/m2 Universi ty of [facility] Systolic blood 2019-10-13 15:00:00 116 mm[Hg] Univer sity of pressure [facility] Diastolic blood 2019-10-13 15:00:00 67 mm[Hg] Unive rsity of pressure [facility] Heart rate 2019-10-13 15:00:00 84 /min Universi ty of [facility] Body temperature 2019-10-13 15:00:00 36.39 [facility] Univ ersity of [facility] [place] [facility] Respiratory rate 2019-10-13 15:00:00 16 /min Univ ersity of [facility] Body height 2019-10-13 15:00:00 152.4 cm Universi ty of [facility] Body weight 2019-10-13 15:00:00 69.31 kg Universi ty of [facility] [place] [facility] BMI 2019-10-13 15:00:00 29.84 kg/m2 Universi ty of [facility] [place] [facility] Systolic blood 2019-10-02 15:13:00 128 mm[Hg] Univer sity of pressure [facility] Diastolic blood 2019-10-02 15:13:00 71 mm[Hg] Unive rsity of pressure [facility] Heart rate 2019-10-02 15:13:00 81 /min Universi ty of [facility] Body temperature 2019-10-02 15:13:00 36.22 [facility] Univ ersity of [facility] Respiratory rate 2019-10-02 15:13:00 16 /min Univ ersity of [facility] Body height 2019-10-02 15:13:00 152.4 cm Universi ty of [facility] Body weight 2019-10-02 15:13:00 67.586 kg Universi ty of [facility] BMI 2019-10-02 15:13:00 29.10 kg/m2 Universi ty of [facility] [place] [facility] Systolic blood 2019-09-30 19:43:00 113 mm[Hg] Univer sity of pressure [facility] Diastolic blood 2019-09-30 19:43:00 67 mm[Hg] Unive rsity of pressure [place] [facility] Heart rate 2019-09-30 19:43:00 91 /min [facility] Body temperature 2019-09-30 19:43:00 36.22 Akua [facility] Respiratory rate 2019-09-30 19:43:00 16 /min [facility] Body height 2019-09-30 19:43:00 152.4 cm [facility] Body weight 2019-09-30 19:43:00 67.189 kg [facility] BMI 2019-09-30 19:43:00 28.93 kg/m2 [facility] Procedures Procedure Date / Time Performing Clinician Source Performed POCT TEST 2020-01-07 14:33:00 Rashid Cha [facility] CONSENT FOR 2020-01-07 05:01:00 Doctor Unassigned, No [facility] CONTRACEPTION Name [facility] CBC WITH DIFFERENTIAL 2019-11-23 09:13:00 Reynold Jones [facility] ARTERIAL CORD GAS 2019-11-22 23:50:00 [facility] VENOUS CORD GAS 2019-11-22 23:49:00 [facility] o f [facility] SECTION 2019-11-22 23:00:00 Fidelia Billings [facility] HEPATITIS B SURFACE 2019-11-22 20:42:00 [facility] ANTIGEN [facility] GALV ONLY - SYPHILIS 2019-11-22 20:42:00 [facility] IGG/IGM [facility] HB ABO GROUPING 2019-11-22 20:02:00 [facility] o f [facility] RHO (D) IMMUNE GLOBULIN 2019-11-22 20:02:00 Reynold Jones [facility] CORONAVIRUS COVID-19 2019-11-22 17:09:00 Fidelia Billings [facility] POCT URINALYSIS 2019-11-18 13:49:00 Carla Rajan [facility] POCT URINALYSIS 2019-11-11 14:00:00 Carla Rajan [facility] POCT URINALYSIS 2019-10-27 17:09:00 Carla Rajan [facility] AUTHORIZATION TO RELEASE 2019-10-09 06:01:00 Doctor Unassigned, No [facility] PHI TO [facility] TDAP VACCINE, >11 YRS, 2019-09-30 20:39:21 Carla Rajan [facility] FLU VACC ([id number]), 6+ 2019-09-30 20:22:55 Carla Rajan [facility] MONTHS, IM, QUAD [facility] POCT URINALYSIS W/O 2019-09-30 19:35:00 Carla Rajan Uni versity [facility] SPECIFIC GRAVITY [facility] POCT TEST 2019-09-30 19:34:00 [facility] 2019-09-30 19:11:56 Doctor Unassigned, No [facility] Encounters Start End Encounter Admission Attending Care Care Encounter Source Date/Time Date/Time Type Type Clinicians Facility Department ID 2021-06-09 Outpatient [facility] [id number] Univers 17:44:35 ity [facility] 2020-11-02 2020-11-02 Patient Zander WVJUAN [id number] Univers 00:00:00 00:00:00 Outreach Declan PRIMARY [id number] i [facility] [id number] [id number] [address] 2020-01-07 2020-01-07 Office Starla [facility] [id number] Univers 09:23:30 10:10:21 Visit Rashid Kidd [employer] [id number] ity General acute hospital [id number] Juan as MATERNAL [id number] Med ical & CHILD [address] [place] [address] 2020-01-07 2020-01-07 Outpatient R STARLA [facility] [id number] Univers 09:00:00 09:00:00 RASHID gaoy o f [facility] 2020-01-07 2020-01-07 Orders Doctor ESTUARDO [id number] Univers 00:00:00 00:00:00 Only Unassigned, LUKE [id number] ity of [place] [facility] [id number] Juan as [id number] [address] 2019-12-16 2019-12-16 Outpatient R CHA [facility] [id number] Univers 09:15:00 09:15:00 RASHID christie o f [facility] 2019-12-16 2019-12-16 [facility] [id number] Univers 07:34:01 09:03:14 ne Visit Rashid R [employer]ESSION[employer] [id number] ity of [facility] [id number] Juan as MATERNAL [id number] [facility] ical & CHILD [address] [place] [address] 2019-12-16 2019-12-16 [facility] [id number] 07:34:01 09:03:14 ne Visit Rashid Bernabe COMMUNICATIONS PROFESSIONAL [id number] [facility] [id number] MATERNAL [id number] & CHILD [address] [place] [address] 2019-11-28 2019-11-28 Nurse Visit, Qian Nurse [facility] 1.2 .[id number] Univers 14:57:15 15:27:42 Visit Carla Rajan COMM[employer]ICATION[employer] PROFESSIONAL 350.1.13. 10 ity of [facility] [id number] Juan as MATERNAL [id number] [facility] ical & CHILD [address] [place] [address] 2019-11-28 2019-11-28 Nurse Visit, [facility] [id number] 14:57:15 15:27:42 Visit Qian [employer]ICATION[employer] PROFESSIONAL [id number] Nurse [facility] [id number] MATERNAL [id number] & CHILD [address] [place] [address] 2019-11-28 2019-11-28 Outpatient R SATINDER [facility] [id number] Univers 15:00:00 15:00:00 CARLA moore [facility] 2019-11-25 2019-11-25 Outpatient R AKINSIPE, [facility] [id number] Univers 09:30:00 09:30:00 CARLA gaoy o f [facility] 2019-11-25 2019-11-25 Outpatient R AKINSIPE, [facility] [id number] Univers 09:15:00 09:15:00 CARLA christie o [facility] 2019-11-22 2019-11-[facility] [id number] Univers 11:49:00 12:16:00 Encounter Fidelia LUKE 350.1.13.10 ity of HOSPITAL [id number] Juan as [id number] [address] 2019-11-22 2019-11-24 [facility] [id number] 11:49:00 12:16:00 Encounter Fidelia [place] 350.1.13.10 [facility] [id number] [id number] [facility] 2019-11-18 2019-11-18 Routine Akinsipe, [facility] [id number] Univers 08:34:45 08:55:27 Carla C COMM[employer]ICATIONS PROFESSIONAL [id number] ity of Visit REGIONAL [id number] Juan as MATERNAL [id number] Med ical & CHILD [address] [place] [address] 2019-11-18 2019-11-18 Routine Akinsipe, [facility] [id number] 08:34:45 08:55:27 Carla C COMMUNICATIONS PROFESSIONAL [id number] Visit REGIONAL [id number] MATERNAL [id number] & CHILD [address] [place] [address] 2019-11-18 2019-11-18 Outpatient R AKINSIPE, [facility] [id number] Univers 08:45:00 08:45:00 CARLA gaoy o f [facility] 2019-11-11 2019-11-11 Routine Akinsipe, [facility] [id number] [id number] Univers 08:49:21 09:26:07 Carla C COMMUNICATIONS PROFESSIONAL 350.1.13.10 ity of Visit REGIONAL 4.2.7.2.686 Juan as MATERNAL [id number] [facility] & CHILD [address] [place] [address] 2019-11-11 2019-11-[address] [facility] [id number] 08:49:21 09:26:07 Carla C COMMUNICATIONS PROFESSIONAL 350.1.13.10 Visit REGIONAL 4.2.7.2.686 MATERNAL [id number] & CHILD [address] [place] [address] 2019-11-11 2019-11-11 Outpatient R UMMSHANT, [facility] [id number] Univers 09:00:00 09:00:00 CARLA de leon oscar [facility] 2019-10-27 2019-10-[address] [facility] [id number] Univers 09:42:46 12:09:33 Carla Curt COMMUNICATIONS PROFESSIONAL 350.1.13.10 ity of Visit [facility] 4.2.7.2.686 Juan as MATERNAL [id number] [facility] & CHILD [address] [place] [address] 2019-10-27 2019-10-27 Outpatient R UMMSHANT, [facility] [id number] Univers 09:30:00 09:30:00 CARLA de leon oscar [facility] 2019-10-13 2019-10-13 Routine Faculty, Han [facility] 1.2 .840.114 [id number] Univers 08:47:13 11:29:01 Leandro Neff COMMUNICATIONS PROFESSIONAL 350.1.13.10 ity of Visit [facility] 4.2.7.2.686 Juan as MATERNAL [id number] [facility] & CHILD [address] [place] [address] 2019-10-13 2019-10-13 Outpatient R [facility] [id number] Univers 09:00:00 09:00:00 ity of [facility] 2019-10-09 2019-10-09 Orders Doctor MARTE 1.2.840.114 [id number] Univers 00:00:00 00:00:00 Only Unassigned, LUKE 350.1.13.10 ity of [place] [facility] 4.2.7.2.686 Juan as [id number] [facility] [address] [place] 2019-10-02 2019-10-02 Nurse Visit, Qian Nurse [facility] 1.2 .840.114 [id number] Univers 09:02:47 09:32:54 Visit Carla Rajan C COMMUNICATIONS PROFESSIONAL 350.1.13. 10 ity of REGIONAL 4.2.7.2.686 Juan as MATERNAL [id number] [facility] ical & CHILD [address] [place] [address] 2019-10-01 2019-10-01 Scientist/Engineer Ultrasound, Ayden [facility] 1.2 .840.114 [id number] Univers 09:01:49 10:01:49 Visit Carla Rajan C COMMUNICATIONS PROFESSIONAL 350.1.13. 10 ity of REGIONAL 4.2.7.2.686 Juan as MATERNAL [id number] [facility] ical & CHILD [address] 2019-10-01 2019-10-01 Scientist/Engineer Lab, Qian [place] 1.2.840. 114 [id number] Univers 08:36:33 08:41:17 Visit Carla Rajan Curt COMMUNICATIONS PROFESSIONAL 350.1.13. 10 ity of REGIONAL 4.2.7.2.686 Juan as MATERNAL [id number] [facility] ical & CHILD [address] [place] [address] 2019-10-01 2019-10-01 Abstract Satinder [facility] 1.2.840.114 [id number] Univers 00:00:00 00:00:00 Carla C COMMUNICATIONS PROFESSIONAL 350.1.13.10 ity of REGIONAL 4.2.7.2.686 Juan as MATERNAL [id number] [facility] ical & CHILD [address] [place] [address] 2019-10-01 2019-10-01 Telephone Satinder [facility] 1.2.840.114 [id number] Univers 00:00:00 00:00:00 Carla C COMMUNICATIONS PROFESSIONAL 350.1.13.10 ity of REGIONAL 4.2.7.2.686 Juan as MATERNAL [id number] [facility] ical & CHILD [address] [place] [address] 2019-09-30 2019-09-30 Initial Satinder [facility] 1.2.528.752 [id number] Univers 13:30:37 14:59:32 Carla C COMMUNICATIONS PROFESSIONAL 350.1.13.10 ity of Visit [facility] 4.2.7.2.686 Juan as MATERNAL [phone] Med ical & CHILD [address] [place] [address] 2019-09-30 2019-09-30 Orders Doctor ESTUARDO 1.2.840.114 [id number] [facility] 00:00:00 00:00:00 Only Unassigned, LUKE 350.1.13.10 ity of [place] [facility] 4.2.7.2.686 Juan as [id number] [address] Results Test Description Test Time Test Comments Results Result Comments Source POCT TEST 2020-01-07 14:33:00 Test Item Value Reference Range Interpretation Comme nts POCT PREG (test code = 1605) Negative On board controls acceptable with C Line (test code = 3574) Yes POCT PREG LOT # (test code = 3575) POCT PREG TEST DATE (test code = 3576) [id number] 14:33:00 Test Item Value Reference Range Interpretation Comments POCT PREG (test code = 1605) Negative On board controls acceptable with C Yes Line (test code = 3574) POCT PREG LOT # (test code = 3575) POCT PREG TEST DATE (test code = 3576) [facility] SYPHILIS [id number] 15:38:00 Test Item Value Reference Range Interpretation Comments Syphilis IgG/IgM (test Non-reactive Non-reactive code = 29735-8) JOSE RAFAEL (test code = JOSE RAFAEL) Non-reactive - No serologic evidence of T. pallidum infection. Cannot exclude incubating or early syphilis. Submit a second specimen in 2-4 weeks if syphilis is clinically suspected. Equivocal - Further testing to follow. Reactive - Further testing to follow. Lab Interpretation (test Normal code = 76587-6) [facility] WITH [id number] 09:57:00 Test Item Value Reference Range Interpretation Comments WBC (test code = See_Comment H [Automated 6690-2) message] The system which generated this result transmit gianna reference range : 4.50 - 13.50 10*3/?L. The reference range was not used to interpret this result as normal/abnormal . RBC (test code = See_Comment L [Automated 789-8) message] The system which generated this result [...] RDW-SD (test code = 44.9 fL 38.5-49 93292-5) RDW-CV (test code = 13.5 % 11.5-14 788-0) PLT (test code = See_Comment [Automated 777-3) message] The system which generated this result transmit gianna reference range : 135 - 361 10*3/ ?L. The reference range was not u sed to interpret th is result as normal/abnormal . MPV (test code = 11.5 fL 9.4-13.3 12786-4) NRBC/100 WBC (test See_Comment [Automat ed code = 7619643107) message] The system which generated this result transmit gianna reference range : 0.0 - 10.0 /100 WBCs. The reference range was not used to interpret this result as normal/abnormal . NRBC x10^3 (test code <0.01 See_Comment [Auto mated = 5445838656) message] The system which generated this result transmit gianna reference range : 10*3/?L. The reference range was not used to interpret this result as normal/abnormal . GRAN MAT (NEUT) % 82.3 % (test code = 770-8) IMM GRAN % (test code 1.00 % = 7689136357) LYMPH % (test code = 10.2 % 736-9) MONO % (test code = 5.6 % 5905-5) EOS % (test code = 0.5 % 713-8) BASO % (test code = 0.4 % 706-2) GRAN MAT x10^3(ANC) 14.09 10*3/uL 1.5-10.3 H (test code = 8788047744) IMM GRAN x10^3 (test 0.17 10*3/uL 0-0.06 H code = 6508357440) LYMPH x10^3 (test code 1.74 10*3/uL 0.7-7.4 = 731-0) MONO x10^3 (test code 0.96 10*3/uL 0-0.5 H = 742-7) EOS x10^3 (test code = 0.09 10*3/uL 0-0.4 711-2) BASO x10^3 (test code 0.06 10*3/uL 0-0.1 = 704-7) BANDS (test code = Increased A 9740124295) Lab Interpretation Abnormal (test code = 27967-7) [facility] IMMUNE [id number] 04:07:12 Test Item Value Reference Range Interpretation Comments RHIG CANDIDATE? No- see comment Patient i s not a (test code = candidate for R hIg- 5055) Patient is Rh Positive.Perfor med at [facility] Laboratory Services - [facility] Blood [address] [place], [place] [address]Toll Free: [phone] A No. [id number] [facility]TER[facility] CORD [id number] 23:57:00 Test Item Value Reference Range Interpretation Comments BASE EXCESS, CORD (test mEq/L code = 6607568700) AC PH, CORD (BEAKER) 7.18-7.38 (test code = 3623675124) PC02, CORD (test code = See_Comment H [Au tomated message] 8425927539) The system Cell>Point generated this result transmitted ref erence range: 32 - 66 mmHg. The reference r devin was not used to interpret this result as normal/abnor mal. PO2, CORD (test code = See_Comment [Aut omated message] 6781761993) The system Cell[employer] generated this result transmitted ref erence range: 10 - 30 mmHg. The reference r devin was not used to interpret this result as normal/abnor mal. BICARBONATE, CORD (test See_Comment H [Au tomated message] code = 7880092876) The syste m which generated this result transmitted ref erence range: 17 - 27 mEq/L. The reference r devin was not used to interpret this result as normal/abnor mal. Lab Interpretation (test Abnormal code = 12685-0) [facility]ORD [id number] 23:52:00 Test Item Value Reference Range Interpretation Comments VENOUS BASE EXCESS, CORD mEq/L (test code = 5412635239) VENOUS PH, CORD (test 7.25-7.45 code = 2558625673) VENOUS PC02, CORD (test See_Comment H [Au tomated message] code = 3374445306) The syste m which generated this result transmitted ref erence range: 27 - 49 mmHg. The reference r devin was not used to interpret this result as normal/abnor mal. VENOUS PO2, CORD (test See_Comment [Aut omated message] code = 9411358679) The syste m which generated this result transmitted ref erence range: 17 - 41 mmHg. The reference r devin was not used to interpret this result as normal/abnor mal. VENOUS BICARBONATE, CORD See_Comment [A utomated message] (test code = 7526510933) The system which generated this result transmitted ref erence range: 12 - 29 mEq/L. The reference r devin was not used to interpret this result as normal/abnor mal. Lab Interpretation (test Abnormal code = 74504-7) [facility]atitis B Surface [id number] 22:06:00 Test Item Value Reference Range Interpretation Comments HBsAg Semi-Quantitative (test code = Negative Negative 5195-3) [facility] HospitalType and Screen - ONCE [id number] 21:39:44 Test Item Value Reference Range Interpretation Comments ABO & RH (test code O POSITIVE Performe d at [facility] = 20) [facility] Blood Bank[facility] s [address]Dpxe Free: [phone] A No. [id number] IAT (test code = Negative Performed a t [facility] 1185) [facility] Blood [facility] s [address]Lesu Free: [phone] A No. [id number] [facility] HospitalCORONAVIRUS COVID-19 [id number] 18:00:00 Test Item Value Reference Range Interpretation Comments SARS-CoV-2 (test code = Not Detected Not Detected 90683-4) JOSE RAFAEL (test code = JOSE RAFAEL) ID NOW COVID-19 Assay is an isothermal nucleic acid amplification test intended for the qualitative detection of nucleic acid from SARS-CoV-2 viral RNA in nasopharyngeal (CARPET INSTALLER HELPER) specimens. It is used under Emergency Use [...] indicated. Lab Interpretation Normal (test code = 73239-4) [facility] URINALYSIS W SPECIFIC [id number] 13:49:00 Test Item Value Reference Range Interpretation [...] POCT U APPEAR (test code = 3267) [facility] URINALYSIS W SPECIFIC [id number] 14:00:00 Test Item Value Reference Range Interpretation [...] POCT U APPEAR (test code = 3267) [facility] URINALYSIS W SPECIFIC [id number] 14:00:00 Test Item Value Reference Range Interpretation [...] POCT U APPEAR (test code = 3267) [facility] URINALYSIS W SPECIFIC [id number] 17:09:00 Test Item Value Reference Range Interpretation [...] POCT U APPEAR (test code = 3267) [facility] URINALYSIS W/O SPECIFIC [id number] 19:35:00 Test Item Value Reference Range Interpretation [...] code = 3257) Neg Negative - Negative [facility] URINALYSIS W/O SPECIFIC [id number] 19:35:00 Test Item Value Reference Range Interpretation [...] code = 3257) Neg Negative - [facility] [id number] 19:35:00 Test Item Value Reference Range Interpretation [...] code = 3257) Neg Negative - Negative [facility] [id number] 19:35:00 Test Item Value Reference Range Interpretation [...] code = 3257) Neg Negative - Negative [facility]PO[facility] [id number] 19:34:00 Test Item Value Reference Range Interpretation Comments POCT PREG (test code = 1605) Positive On board controls acceptable with C Yes Line (test code = 3574) POCT PREG LOT # (test code = 3575) POCT PREG TEST DATE (test code = 3576) [facility]PO[facility] [id number] 19:34:00 Test Item Value Reference Range Interpretation Comments POCT PREG (test code = 1605) Positive On board controls acceptable with C Yes Line (test code = 3574) POCT PREG LOT # (test code = 3575) POCT PREG TEST DATE (test code = 3576) [facility]PO[facility] [id number] 19:34:00 Test Item Value Reference Range Interpretation Comments POCT PREG (test code = 1605) Positive On board controls acceptable with C Yes Line (test code = 3574) POCT PREG LOT # (test code = 3575) POCT PREG TEST DATE (test code = 3576) [facility]PO[facility] [id number] 19:34:00 Test Item Value Reference Range Interpretation Comments POCT PREG (test code = 1605) Positive On board controls acceptable with C Yes Line (test code = 3574) POCT PREG LOT # (test code = 3575) POCT PREG TEST DATE (test code = 3576) [facility]
[2022-09-11] MEDS ORDERED: METHYLPREDNISOLONE 125 MG INJ ONE (07:23)
[2022-09-11] MEDS ORDERED: FAMOTIDINE 20 MG TAB ONE (07:23)
[2022-09-11] MEDS ORDERED: DIPHENHYDRAMINE 50 MG/ML VIAL ONE (07:23)
[2022-09-11] MEDS ORDERED: NA CHLORIDE 0.9% 1,000 ML ONE (07:25)
--- NOTE | 2022-09-11 08:56 | EDPHYS ---
Physician Documentation [facility] Name: Atiya Castellanos Age: 22 yrs Sex: Female : 2000 Arrival Date: 09/11/2022 Time: 07:15 Bed 19 Private MD: ED Physician Jose Raul Rayo HPI: 09/11 07:15 This 22 yrs old Female presents to ER via Ambulatory with complaints of Allergic jh7 Reaction. 07:15 The patient presents with itching, rash, that is diffuse. Onset: The symptoms/episode jh7 began/occurred last night, and became worse this morning. Associated signs and symptoms: Pertinent negatives: abdominal pain, chest pain, fever, Light headed shortness of breath, vomiting. Possible causes: The patient has no known obvious cause for the symptoms. At home the patient or guardian has treated the symptoms with Benadryl. 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 - Social history:: Smoking status: Patient denies any tobacco usage or history of. ROS: 07:15 Constitutional: Negative for fever, chills, and weight loss, Eyes: Negative for injury, jh7 pain, redness, and discharge, ENT: Negative for injury, pain, and discharge, Neck: Negative for injury, pain, and swelling, Cardiovascular: Negative for chest pain, palpitations, and edema, Respiratory: Negative for shortness of breath, cough, wheezing, and pleuritic chest pain, Abdomen/GI: Negative for abdominal pain, nausea, vomiting, diarrhea, and constipation, Back: Negative for injury and pain, MS/Extremity: Negative for injury and deformity, Neuro: Negative for headache, weakness, numbness, tingling, and seizure. 07:15 Skin: Positive for rash, diffusely. 07:15 All other systems are negative. Exam: 07:15 Constitutional: This is a well developed, well nourished patient who is awake, alert, jh7 and in no acute distress. Head/Face: Normocephalic, atraumatic. Eyes: Pupils equal round and reactive to light, extra-ocular motions intact. Lids and lashes normal. Conjunctiva and sclera are non-icteric and not injected. Cornea within normal limits. Periorbital areas with no swelling, redness, or edema. ENT: Nares patent. No nasal discharge, no septal abnormalities noted. Tympanic membranes are normal and external auditory canals are clear. Oropharynx with no redness, swelling, or masses, exudates, or evidence of obstruction, uvula midline. Mucous membranes moist. Neck: Trachea midline, no thyromegaly or masses palpated, and no cervical lymphadenopathy. Supple, full range of motion without nuchal rigidity, or vertebral point tenderness. No Meningismus. Cardiovascular: Regular rate and rhythm with a normal S1 and S2. No gallops, murmurs, or rubs. Normal PMI, no JVD. No pulse deficits. Respiratory: Lungs have equal breath sounds bilaterally, clear to auscultation and percussion. No rales, rhonchi or wheezes noted. No increased work of breathing, no retractions or nasal flaring. Abdomen/GI: Soft, non-tender, with normal bowel sounds. No distension or tympany. No guarding or rebound. No evidence of tenderness throughout. Back: No spinal tenderness. No costovertebral tenderness. Full range of motion. Skin: Warm, dry with normal turgor. Normal color with no rashes, no lesions, and no evidence of cellulitis. MS/ Extremity: Pulses equal, no cyanosis. Neurovascular intact. Full, normal range of motion. Neuro: Awake and alert, GCS 15, oriented to person, place, time, and situation. Motor strength 5/5 in all extremities. Sensory grossly intact. Normal gait. 07:15 Skin: urticaria, and is diffusely located. Vital Signs: 07:22 BP 129 / 89; Pulse 110; Resp 17; Temp 97.8; Pulse Ox 99% on R/A; jl7 07:30 BP 122 / 98; Pulse 144; Resp 15; Pulse Ox 100% on R/A; Weight 61.23 kg; Height 5 ft. 2 ld1 in. (157.48 cm); Pain 0/10; 08:15 BP 109 / 50; Pulse 92; Resp 11; Pulse Ox 100% on R/A; Pain 0/10; ld1 09:08 BP 111 / 61; Pulse 86; Resp 14; Pulse Ox 100% on R/A; Pain 0/10; ld1 07:30 Body Mass Index 24.69 (61.23 kg, 157.48 cm) ld1 MDM: 07:15 Patient medically screened. [facility] 07:35 Differential diagnosis: anaphylaxis, urticaria. Data reviewed: vital signs, nurses [facility] notes. I considered the following discharge prescriptions or medication management in the emergency department Medications were administered in the Emergency Department. See MAR. Counseling: I had a detailed discussion with the patient and/or guardian regarding: the historical points, exam findings, and any diagnostic results supporting the discharge/admit diagnosis, to return to the emergency department if symptoms worsen or persist or if there are any questions or concerns that arise at home. Response to treatment: the patient's symptoms have resolved after treatment, Rash and itching resolved. Administered Medications: 07:30 Drug: SOLU-Medrol (methylPrednisoLONE) 125 mg Route: IVP; Site: right antecubital; ld1 08:16 Follow up: Response: No adverse reaction ld1 07:30 Drug: Benadryl (diphenhydrAMINE) 50 mg Route: IVP; Site: right antecubital; ld1 08:16 Follow up: Response: No adverse reaction ld1 07:30 Drug: Pepcid (famotidine) 20 mg Route: PO; ld1 08:16 Follow up: Response: No adverse reaction ld1 07:30 Drug: NS 0.9% 1000 ml Route: IV; Rate: 1 bolus; Site: right antecubital; ld1 Disposition: 16:23 Co-signature as Attending Physician, Jose Raul Rayo MD. rn Disposition Summary: 09/11/22 08:56 Discharge Ordered Location: Home [facility] Problem: new [facility] Symptoms: are resolved [facility] Condition: Stable [facility] Diagnosis - Allergic urticaria [facility] Followup: [facility] - With: Private Physician - When: 2 - 3 days - Reason: Recheck today's complaints Discharge Instructions: - Discharge Summary Sheet [facility] Omid Gutiérrez [facility] - Rash, Adult [facility] Forms: - Medication Reconciliation Form [facility] - Thank You Letter [facility] Prescriptions: - Hydroxyzine HCl 25 mg Oral Tablet - take 1 tablet by ORAL route every 6 hours As needed; 12 tablet; Refills: 0, 7 Product Selection Permitted - Medrol (James) 4 mg Oral Tablets, Dose Pack - take 1 tablet by ORAL route as directed - follow package instructions; 1 [facility] packet; Refills: 0, Product Selection Permitted - EpiPen 2-James - inject 0.3 milligram by INTRAMUSCULAR route one time Use as directed; 1 Kit; 7 Refills: 0, Product Selection Permitted Signatures: Jose Raul Rayo MD MD rn Leal, Jahala RN RN jl7 Elizabeth Douglass RN RN ld1 Felicitas Fry, CUSTODIAL OFFICER [facility]7
--- NOTE | 2022-09-11 08:56 | ER ---
Nurse's Notes [facility] Name: Atiya Castellanos Age: 22 yrs Sex: Female : 2000 Arrival Date: 09/11/2022 Time: 07:15 Bed 19 Private MD: Diagnosis: Allergic urticaria Presentation: 09/11 07:22 Chief complaint: Patient states: Itching on bilateral palms started last night, woke jl7 with hives all over. Coronavirus screen: Vaccine status: Patient reports being unvaccinated. At this time, the client does not indicate any symptoms associated with coronavirus-19. Ebola Screen: No symptoms or risks identified at this time. Onset: The symptoms/episode began/occurred gradually, last night. Anaphylaxis evaluation, no signs or symptoms of anaphylaxis were noted. Initial Sepsis Screen: Does the patient meet any 2 criteria? No. Patient's initial sepsis screen is negative. Does the patient have a suspected source of infection? No. Patient's initial sepsis screen is negative. Risk Assessment: Do you want to hurt yourself or someone else? Patient reports no desire to harm self or others. Onset of symptoms was September 10, 2022. 07:22 Method Of Arrival: Ambulatory [facility] 07:22 Acuity: CHRIS 3 jl7 Triage Assessment: 07:24 General: Appears in no apparent distress. uncomfortable, Behavior is cooperative, jl7 anxious. Pain: Denies pain. Derm: Rash noted that is itchy, red, raised, urticaria. 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 - Social history:: Smoking status: Patient denies any tobacco usage or history of. Screenin:30 [facility] ED Fall Risk Assessment (Adult) History of falling in the last 3 months, ld1 including since admission No falls in past 3 months (0 pts). Abuse screen: Denies threats or abuse. Denies injuries from another. Nutritional screening: No deficits noted. Tuberculosis screening: No symptoms or risk factors identified. Assessment: 07:30 General: Appears in no apparent distress. uncomfortable, Behavior is cooperative, ld1 appropriate for age, anxious. Pain: Denies pain. Neuro: Level of Consciousness is awake, alert, obeys commands, Oriented to person, place, time, situation. Cardiovascular: Capillary refill < 3 seconds Patient's skin is warm and dry. Rhythm is sinus tachycardia. Respiratory: Airway is patent Respiratory effort is even, unlabored, Breath sounds are clear bilaterally. GI: Abdomen is flat, non-distended. : No signs and/or symptoms were reported regarding the genitourinary system. EENT: No signs and/or symptoms were reported regarding the EENT system. Derm: Rash noted that is itchy, red, raised, all over body Reports itching. Musculoskeletal: No signs and/or symptoms reported regarding the musculoskeletal system. 07:33 Reassessment: ERP at bedside assessing patient. Instructed to monitor heart rate. ld1 08:15 Reassessment: Patient appears in no apparent distress at this time. Patient and/or ld1 family updated on plan of care and expected duration. Pain level reassessed. Patient is alert, oriented x 3, equal unlabored respirations, skin warm/dry/pink. Patient states feeling better. Patient states symptoms have improved. 09:08 Reassessment: Patient appears in no apparent distress at this time. Patient and/or ld1 family updated on plan of care and expected duration. Pain level reassessed. Patient is alert, oriented x 3, equal unlabored respirations, skin warm/dry/pink. Patient states feeling better. Patient states symptoms have improved. Vital Signs: 07:22 BP 129 / 89; Pulse 110; Resp 17; Temp 97.8; Pulse Ox 99% on R/A; jl7 07:30 BP 122 / 98; Pulse 144; Resp 15; Pulse Ox 100% on R/A; Weight 61.23 kg; Height 5 ft. 2 ld1 in. (157.48 cm); Pain 0/10; 08:15 BP 109 / 50; Pulse 92; Resp 11; Pulse Ox 100% on R/A; Pain 0/10; ld1 09:08 BP 111 / 61; Pulse 86; Resp 14; Pulse Ox 100% on R/A; Pain 0/10; ld1 07:30 Body Mass Index 24.69 (61.23 kg, 157.48 cm) ld1 ED Course: 07:15 Patient arrived in ED. am2 07:15 [facility] jh[facility] 07:15 Jose Raul Rayo MD is Attending Physician. jh7 07:24 Triage completed. jl7 07:24 Arm band placed on right wrist. jl7 07:30 Elizabeth Douglass, RN is Primary Nurse. ld1 07:30 Patient has correct armband on for positive identification. Placed in gown. Bed in low ld1 position. Call light in reach. Side rails up X2. manager monitoring on. Pulse ox on. NIBP on. Door closed. Noise minimized. Warm blanket given. 07:30 No provider procedures requiring assistance completed. Inserted saline lock: 20 gauge ld1 in right antecubital area, using aseptic technique. 09:09 IV discontinued, intact, bleeding controlled, No redness/swelling at site. ld1 Administered Medications: 07:30 Drug: SOLU-Medrol (methylPrednisoLONE) 125 mg Route: IVP; Site: right antecubital; ld1 08:16 Follow up: Response: No adverse reaction ld1 07:30 Drug: Benadryl (diphenhydrAMINE) 50 mg Route: IVP; Site: right antecubital; ld1 08:16 Follow up: Response: No adverse reaction ld1 07:30 Drug: Pepcid (famotidine) 20 mg Route: PO; ld1 08:16 Follow up: Response: No adverse reaction ld1 07:30 Drug: NS 0.9% 1000 ml Route: IV; Rate: 1 bolus; Site: right antecubital; ld1 Medication: 08:15 VIS not applicable for this client. ld1 Outcome: 08:56 Discharge ordered by . jh7 09:09 Discharged to home via wheelchair, with family. ld1 09:09 Condition: stable 09:09 Discharge instructions given to patient, family, Instructed on discharge instructions, follow up and referral plans. medication usage, Demonstrated understanding of instructions, follow-up care, medications, Prescriptions given X 3. 09:09 Patient left the ED. ld1 Signatures: Alejandra Coon RN RN jl7 Karen Leyva am2 Elizabeth Douglass, LEONORA LEA ld1 Hadash, Felicitas, SKEIN YARD DRIER SKEIN YARD DRIER jh7
[2022-09-11 09:18] VITALS: TEMP 97.8
[2022-09-11 09:20] VITALS: O2SAT 100
[2022-09-11 09:22] VITALS: BP 111/61
== END 2022-09-11 09:09 | disposition home or self-care (01) ==
LOC: ER 07:09
DX: L50.0 Allergic urticaria (principal); Z91.011 Allergy to milk products; Z91.018 Allergy to other foods
CPT/HCPCS: J1200; J7030; J2930; 96374; 96375; 99284

== ENCOUNTER 2022-09-12 03:29 | Emergency (ER) | payer OTHER ==
--- OUTSIDE RECORDS SUMMARY | 2022-09-12 03:34 | XMS REPORT | Continuity of Care Document ---
:2000 Author Organization [facility] t Address [address] [place] [address] Care Team Providers Name Role Phone Declan Fermin DO Attending Clinician Rashid Moses Attending Clinician RASHID CHA Attending Clinician Unavailable Doctor Unassigned, Steen Attending Clinician Unavailable Visit, Qian Nurse Attending Clinician Unavailable Carla Ramos Attending Clinician [phone] CARLA RAJAN Attending Clinician Unavailable Fidelia Billings MD Attending Clinician Faculty, Han Marquez Attending Clinician Unavailable Leandro Neff MD Attending Clinician Ultrasound, Ayden Attending Clinician Unavailable Lab, Qian Attending Clinician Unavailable Fidelia Billings MD Admitting Clinician Payers Payer Name Policy Type Policy Number Effective Date Expiration Date Belinda CURTISS [id number] 2019 HEALTH 00:00:00 Problems Condition Condition Condition [...] (BMI 4-11 ity of 30-39.9) 30-39.9) 00:00: [place] 00 Medical Branch 37 weeks 37 weeks Disease Active 2020-0 Unive rs gestation gestation 4-11 ity of of of 00:00: [place] 00 [facility] Chlamydia Chlamydia Disease Active 2020-0 Overview: Univers infection infection 2-19 Pending ity of during during 00:00: MICHAEL -neg [place] 00 [facility] Gonorrhea Gonorrhea Disease Active 2020-0 Overview: Univers in in 2-19 [place] [facility] Susceptibl Susceptibl Disease Active 2020-0 Overview : Univers e to e to -19 Address ity of varicella var[place]ella [place] (non-immun (non-immun 00 Me dical e), e), Branch currently currently Supervisio Supervisio Disease Active 2020-0 U nivers n of n of 2-18 ity of high-risk high-risk 00:[place] [facility] with with Branch insufficie insufficie nt nt care care Over Over Disease Active 2020-0 Univers weight weight 2-18 ity of 00:00: [place] [facility] Branch Multiparit Multiparit Disease Active 2020-0 U nivers y y 2-18 ity of 00:00: [place] [facility] History of History of Disease Active 2020-0 Overview : Univers bipolar bipolar 2-18 Not on ity of disorder disorder 00:00: meds x1 [place] year Medical Branch History of History of Disease Active 2020-0 Overview : Univers depression depression 2-18 Not on it y of 00:00: meds x1 [place] year Medical Branch History of History of Disease Active 2020-0 Overview : Univers anxiety anxiety 2-18 Not on ity of 00:00: meds x1 [place] year Medical Branch History of History of Disease Active 2020-0 Overview : Univers 2-18 Reports ity of [place] [facility] 31weeks Branch ROR requested History of History of Disease Active 2020-0 U nivers ADHD ADHD 2-18 ity of 00:00: [place] [facility] Family Family Disease Active 2020-0 [...] Comments Source ASSERTION 2019-03-20 University of 00:00:00 [facility] Exposure to Not sure Rebecca of SARS-CoV-2 [place] [facility] (event) Branch Tobacco use and 2020-01-07 2020-01-07 Never used Universit y of exposure 00:00:00 00:00:00 [facility] Alcohol intake 2020-01-07 2020-01-07 Ex-drinker University of 00:00:00 00:00:00 (finding) [facility] History SDOH 2019-11-22 2019-11-22 11 University o f Education 00:00:00 00:00:00 [facility] Tobacco Comment 2013-06-10 2013-06-10 mom smokes Universit y of 00:00:00 00:00:00 outside [facility] Sex Assigned At [birth year] Universit y of 00:00:00 00:00:00 [place] [facility] Smoking Status Start Date Stop Date Source Never smoker [facility] Medical Branch Medications Ordered Filled Start Stop Current Ordering Indication Dosage Frequency Signature Comments Components Source Medication Medication Date Date Medication? Clinician (SIG) Name Name etonogestre 2019-2019- No [id number] 68mg Univers l 01-06 ity of (NEXPLANON) 16:00: 14:55 [place] implant 68 00 :00 Medical mg Branch etonogestre 2019-2019- No [id number] 68mg 68 mg, Univers l 01-06 Subdermal, ity of (NEXPLANON) 16:00: 14:55 ONCE NOW, [place] implant 68 00 :00 1 dose, Medica l mg [facility] 01/07/20 at 1100, Routine
Use approved by: ELECTRIC METER INSPECTOR etonogestre 2019-2019- No [id number] 68mg Univers l 01-06 ity of (NEXPLANON) 16:00: 14:55 [place] implant 68 00 :00 Medical mg Branch etonogestre 2019- No [id number] 68mg 68 mg, Univers l 01-06 Subdermal, ity of (NEXPLANON) 16:00: 14:55 ONCE NOW, [place] implant 68 00 :00 1 dose, Medica l mg [facility] 01/07/20 at 1100, Routine
Use approved by: ELECTRIC METER INSPECTOR lisdexamfet 2020- No 50mg Take 50 mg Univers amine 11-22-12 by mouth ity of (VYVANSE) 12:42: 00:00 every [place] 50 mg 10 :00 morning. Medical capsule Branch ARIPiprazol 2020- No 2mg Take 2 mg Univers e (ABILIFY) 11-22-12 by mouth ity of 2 mg tablet 12:42: 00:00 daily. [place] as 10 :00 Medical Branch human 2019- [...] Subcutaneo ity of vaccine 12:26: 16:35 us, [place] live 12 :00 ONCE-PRIOR Medical (VARIVAX TO [...] at 1912, Routine, Analgesia Recovery 2020-0 Yes [id number] 1{tbl} Take 1 Univers vitamin 4-12 tablet by ity of w/FA tablet 00:00: mouth [place] 00 daily. Medical Branch docusate 2020-0 Yes [id number] 240mg Take 1 U nivers calcium 240 4-12 capsule by it y of mg capsule 00:00: mouth once [place] 00 daily as Medical needed for Branch Constipati on. ferrous 2020-0 Yes [id number] 325mg Take 1 Un dustin sulfate 325 4-12 tablet by ity of mg (65 mg 00:00: mouth 2 [place] iron) 00 (two) Medical tablet times Branch daily. ibuprofen 2020-0 Yes [id number] 600mg Take 1 Univers 600 mg 4-12 tablet by ity of tablet 00:00: mouth [place] 00 every 6 Medical (six) Branch hours as needed (Pain). Take with food or milk. 2019-0 Yes [id number] 1{tbl} Take 1 Univers vitamin 4-12 tablet by ity of w/FA tablet 00:00: mouth [place] 00 daily. Medical Branch docusate 2020-0 Yes [id number] 240mg Take 1 U nivers calcium 240 4-12 capsule by it y of mg capsule 00:00: mouth once [place] 00 daily as Medical needed for Branch Constipati on. ferrous 2020-0 Yes [id number] 325mg Take 1 Un dustin sulfate 325 4-12 tablet by ity of mg (65 mg 00:00: mouth 2 [place] iron) 00 (two) Medical tablet times Branch daily. ibuprofen 2020-0 Yes [id number] 600mg Take 1 Univers 600 mg 4-12 tablet by ity of tablet 00:00: mouth [place] 00 every 6 Medical (six) Branch hours as needed (Pain). Take with food or milk. 2020-0 Yes [id number] 1{tbl} Take 1 Univers vitamin 4-12 tablet by ity of w/FA tablet 00:00: mouth [place] 00 daily. Medical Branch docusate 2020-0 Yes [id number] 240mg Take 1 U nivers calcium 240 4-12 capsule by it y of mg capsule 00:00: mouth once [place] 00 daily as Medical needed for Branch Constipati on. ferrous 2020-0 Yes [id number] 325mg Take 1 Un dustin sulfate 325 4-12 tablet by ity of mg (65 mg 00:00: mouth 2 [place] iron) 00 (two) Medical tablet times Branch daily. ibuprofen 2020-0 Yes [id number] 600mg Take 1 Univers 600 mg 4-12 tablet by ity of tablet 00:00: mouth [place] 00 every 6 Medical (six) Branch hours as needed (Pain). Take with food or milk. 2020-0 Yes [id number] 1{tbl} Take 1 Univers vitamin 4-12 tablet by ity of w/FA tablet 00:00: mouth [place] 00 daily. Medical Branch docusate 2020-0 Yes [id number] 240mg Take 1 U nivers calcium 240 4-12 capsule by it y of mg capsule 00:00: mouth once [place] 00 daily as Medical needed for Branch Constipati on. ferrous 2020-0 Yes [id number] 325mg Take 1 Un dustin sulfate 325 4-12 tablet by ity of mg (65 mg 00:00: mouth 2 [place] iron) 00 (two) Medical tablet times Branch daily. ibuprofen 2020-0 Yes [id number] 600mg Take 1 Univers 600 mg 4-12 tablet by ity of tablet 00:00: mouth [place] 00 every 6 Medical (six) Branch hours as needed (Pain). Take with food or milk. 2020-0 Yes [id number] 1{tbl} Take 1 Univers vitamin 4-12 tablet by ity of w/FA tablet 00:00: mouth [place] 00 daily. Medical Branch docusate 2020-0 Yes [id number] 240mg Take 1 U nivers calcium 240 4-12 capsule by it y of mg capsule 00:00: mouth once [place] 00 daily as Medical needed for Branch Constipati on. ferrous 2020-0 Yes [id number] 325mg Take 1 Un dustin sulfate 325 4-12 tablet by ity of mg (65 mg 00:00: mouth 2 [place] iron) 00 (two) Medical tablet times Branch daily. ibuprofen 2020-0 Yes [id number] 600mg Take 1 Univers 600 mg 4-12 tablet by ity of tablet 00:00: mouth [place] 00 every 6 Medical (six) Branch hours as needed (Pain). Take with food or milk. 2020-0 Yes [id number] 1{tbl} Take 1 Univers vitamin 4-12 tablet by ity of w/FA tablet 00:00: mouth [place] 00 daily. Medical Branch docusate 2020-0 Yes [id number] 240mg Take 1 U nivers calcium 240 4-12 capsule by it y of mg capsule 00:00: mouth once [place] 00 daily as Medical needed for Branch Constipati on. ferrous 2020-0 Yes [id number] 325mg Take 1 Un dustin sulfate 325 4-12 tablet by ity of mg (65 mg 00:00: mouth 2 [place] iron) 00 (two) Medical tablet times Branch daily. ibuprofen 2020-0 Yes [id number] 600mg Take 1 Univers 600 mg 4-12 tablet by ity of tablet 00:00: mouth [place] 00 every 6 Medical (six) Branch hours as needed (Pain). Take with food or milk. 2019-0 Yes [id number] 1{tbl} Take 1 Univers vitamin 4-12 tablet by ity of w/FA tablet 00:00: mouth [place] 00 daily. Medical Branch docusate 2019-0 Yes [id number] 240mg Take 1 U nivers calcium 240 4-12 capsule by it y of mg capsule 00:00: mouth once [place] 00 daily as Medical needed for Branch Constipati on. ferrous 2020-0 Yes [id number] 325mg Take 1 Un dustin sulfate 325 4-12 tablet by ity of mg (65 mg 00:00: mouth 2 [place] iron) 00 (two) Medical tablet times Branch daily. ibuprofen 2019-0 Yes [id number] 600mg Take 1 Univers 600 mg 4-12 tablet by ity of tablet 00:00: mouth [place] 00 every 6 Medical (six) Branch hours as needed (Pain). Take with food or milk. HYDROcodone 2019- No [id number] 1{tbl} Take 1 Univers -acetaminop 4-12 04-20 tablet by it y of hen 5-325 00:00: 04:59 mouth [place] mg tablet 00 :00 every 6 Medical (six) Branch hours as needed (for pain) for up to 7 days. Do not exceed 3 grams of acetaminop hen in 24 hours. HYDROcodone 2019- No [id number] 1{tbl} Take 1 Univers -acetaminop 4-12 04-20 [...] Surgical Prophylaxi s
Surgi ashley Prophylaxi s: ELECTRIC METER INSPECTOR
Duration of therapy: within 24 hours of [...] [place] (RIGHT STEP 00 daily. Medica l [facility] VITAMINS) 27 mg iron- 0.8 mg per tablet ferrous 2020-0 Yes 325mg Take 1 Univers sulfate 325 3-02 tablet by ity of mg (65 mg 00:00: mouth [place] iron) 00 daily. Medical tablet Branch 2020- No 1{tbl} Take 1 Univ ers Vit-Iron 3-02 04-12 tablet by ity o f Fumarate-FA 00:00: 00:00 [place] (RIGHT STEP 00 :00 daily. Medica l [facility] VITAMINS) 27 mg iron- 0.8 mg per [...] Therapy: Other (see Comments) azithromyci 2019-2019- No [id number] 1000mg Take 2 Univers n 500 mg -20 tablets by ity of tablet 00:00: 05:59 mouth once [place] 00 :00 now for 1 Medical dose. Branch azithromyci 2019- No [id number] 1000mg Take 2 Univers n 500 mg 2-19 02-20 tablets by ity of tablet 00:00: 05:59 mouth once [facility] 00 :00 now for 1 Medical dose. Branch ARIPiprazol 2020-0 Yes 2mg Take 2 mg U nivers e (ABILIFY) 2-18 by mouth ity of 2 mg tablet 19:58: daily. [place] [address] Medical Branch lisdexamfet 2019-0 Yes 50mg Take 50 mg Univers amine 2-18 by mouth ity of (VYVANSE) 19:58: every [place] 50 mg 26 morning. Medical capsule Branch ARIPiprazol 2020-0 Yes 2mg Take 2 mg U nivers e (ABILIFY) 2-18 by mouth ity of 2 mg tablet 19:58: daily. [place] [address] Medical Branch lisdexamfet 2020-0 Yes 50mg Take 50 mg Univers amine 2-18 by mouth ity of (VYVANSE) 19:58: every [place] 50 mg 26 morning. Medical capsule Branch ARIPiprazol 2020-0 Yes 2mg Take 2 mg U nivers e (ABILIFY) 2-18 by mouth ity of 2 mg tablet 19:58: daily. [place] [address] Medical Branch lisdexamfet 2019-0 Yes 50mg Take 50 mg Univers amine 2-18 by mouth ity of (VYVANSE) 19:58: every [place] 50 mg 26 morning. Medical capsule Branch ARIPiprazol 2020-0 Yes 2mg Take 2 mg U nivers e (ABILIFY) 2-18 by mouth ity of 2 mg tablet 19:58: daily. [place] [address] Medical Branch lisdexamfet 2020-0 Yes 50mg Take 50 mg Univers amine 2-18 by mouth ity of (VYVANSE) 19:58: every [place] 50 mg 26 morning. Medical capsule Branch ARIPiprazol 2020-0 Yes 2mg Take 2 mg U nivers e (ABILIFY) 2-18 by mouth ity of 2 mg tablet 19:58: daily. [address] Branch lisdexamfet 2020-0 Yes 50mg Take 50 mg Univers amine 2-18 by mouth ity of (VYVANSE) 19:58: every [place] 50 mg 26 morning. Medical capsule Branch ARIPiprazol 2020-0 Yes 2mg Take 2 mg U nivers e (ABILIFY) 2-18 by mouth ity of 2 mg tablet 19:58: daily. [place] [address] Medical Branch lisdexamfet 2020-0 Yes 50mg Take 50 mg Univers amine 2-18 by mouth ity of (VYVANSE) 19:58: every [place] 50 mg 26 morning. Medical capsule Branch ARIPiprazol 2020-0 Yes 2mg Take 2 mg U nivers e (ABILIFY) 2-18 by mouth ity of 2 mg tablet 19:58: daily. [place] [address] Medical Branch lisdexamfet 2020-0 Yes 50mg Take 50 mg Univers amine 2-18 by mouth ity of (VYVANSE) 19:58: every [place] 50 mg 26 morning. Medical capsule Branch ARIPiprazol 2020-0 Yes 2mg Take 2 mg U nivers e (ABILIFY) 2-18 by mouth ity of 2 mg tablet 19:58: daily. [address] Branch lisdexamfet 2020-0 Yes 50mg Take 50 mg Univers amine 2-18 by mouth ity of (VYVANSE) 19:58: every [place] 50 mg 26 morning. Medical capsule Branch ARIPiprazol 2020-0 Yes 2mg Take 2 mg U nivers e (ABILIFY) 2-18 by mouth ity of 2 mg tablet 19:58: daily. [address] lisdexamfet 2020-0 Yes 50mg Take 50 mg Univers amine 2-18 by mouth ity of (VYVANSE) 19:58: every [place] 50 mg 26 morning. Medical capsule Branch ARIPiprazol 2020-0 Yes 2mg Take 2 mg U nivers e (ABILIFY) 2-18 by mouth ity of 2 mg tablet 19:58: daily. [address] Branch lisdexamfet 2020-0 Yes 50mg Take [...] ity of 2 mg tablet 19:58: daily. [address] Branch lisdexamfet 2020-0 Yes 50mg Take 50 mg Univers amine 2-18 by mouth ity of (VYVANSE) 19:58: every [place] 50 mg 26 morning. Medical capsule Branch ARIPiprazol 2020-0 Yes 2mg Take 2 mg U nivers e (ABILIFY) 2-18 by mouth ity of 2 mg tablet 19:58: daily. [place] [address] Medical Branch lisdexamfet 2020-0 Yes 50mg Take 50 mg Univers amine 2-18 by mouth ity of (VYVANSE) 19:58: every [place] 50 mg 26 morning. Medical capsule Branch ARIPiprazol 2020-0 Yes 2mg Take 2 mg U nivers e (ABILIFY) 2-18 by mouth ity of 2 mg tablet 19:58: daily. [address] Branch lisdexamfet 2019-0 Yes 50mg Take 50 mg Univers amine 2-18 by mouth ity of (VYVANSE) 19:58: every [place] 50 mg 26 morning. Medical capsule Branch ARIPiprazol 2020-0 Yes 2mg Take 2 mg U nivers e (ABILIFY) 2-18 by mouth ity of 2 mg tablet 19:58: daily. [place] [address] Medical Branch lisdexamfet 2020-0 Yes 50mg Take 50 mg Univers amine 2-18 by mouth ity of (VYVANSE) 19:58: every [place] 50 mg 26 morning. Medical capsule Branch ARIPiprazol 2020-0 Yes 2mg Take 2 mg U nivers e (ABILIFY) 2-18 by mouth ity of 2 mg tablet 19:58: daily. [address] Branch lisdexamfet 2020-0 Yes 50mg Take 50 mg Univers amine 2-18 by mouth ity of (VYVANSE) 19:58: every [place] 50 mg 26 morning. Medical capsule Branch ARIPiprazol 2020-0 Yes 2mg Take 2 mg U nivers e (ABILIFY) 2-18 by mouth ity of 2 mg tablet 19:58: daily. [address] Branch lisdexamfet 2019-0 Yes 50mg Take 50 mg Univers amine 2-18 by mouth ity of (VYVANSE) 19:58: every [place] 50 mg 26 morning. Medical capsule Branch ARIPiprazol 2019-0 Yes 2mg Take 2 mg U nivers e (ABILIFY) 2-18 by mouth ity of 2 mg tablet 19:58: daily. [address] Branch lisdexamfet 2019-0 Yes 50mg Take 50 mg Univers amine 2-18 by mouth ity of (VYVANSE) 19:58: every [place] 50 mg 26 morning. Medical capsule Branch ARIPiprazol 2019-0 Yes 2mg Take 2 mg U nivers e (ABILIFY) 2-18 by mouth ity of 2 mg tablet 19:58: daily. [address] Branch lisdexamfet 2019-0 Yes 50mg Take 50 mg Univers amine 2-18 by mouth ity of (VYVANSE) 19:58: every [place] 50 mg 26 morning. Medical capsule Branch ARIPiprazol 2019-0 Yes 2mg Take 2 mg U nivers e (ABILIFY) 2-18 by mouth ity of 2 mg tablet 19:58: daily. [address] lisdexamfet 2019-0 Yes 50mg Take 50 [...] ity of 2 mg tablet 14:18: daily. [facility] [address] [facility] Somatropin Yes [id number] 3mg inject 3 Univers (NORDITROPI 5-05 mg under ity of N FLEXPRO) 00:00: the skin [place] 15 mg/1.5 00 daily. Medical mL (10 Branch mg/mL) PnIj Somatropin 2014-0 Yes [id number] 3mg inject 3 Univers (NORDITROPI 5-05 mg under ity of N FLEXPRO) 00:00: the [place] 15 mg/1.5 00 daily. Medical mL (10 Branch mg/mL) PnIj Somatropin 2014-0 Yes [id number] 3mg inject 3 Univers (NORDITROPI 5-05 mg under ity of N FLEXPRO) 00:00: the [place] 15 mg/1.5 00 daily. Medical mL (10 Branch mg/mL) PnIj Somatropin 2014- Yes [id number] 3mg inject 3 Univers (NORDITROPI 5-05 mg under ity of N FLEXPRO) 00:00: the [place] 15 mg/1.5 00 daily. Medical mL (10 Branch mg/mL) PnIj Somatropin 2014- Yes [id number] 3mg inject 3 Univers (NORDITROPI 5-05 mg under ity of N FLEXPRO) 00:00: the [place] 15 mg/1.5 00 daily. Medical mL (10 Branch mg/mL) PnIj Somatropin 2014- Yes [id number] 3mg inject 3 Univers (NORDITROPI 5-05 mg under ity of N FLEXPRO) 00:00: the [place] 15 mg/1.5 00 daily. Medical mL (10 Branch mg/mL) PnIj Somatropin 2014- Yes [id number] 3mg inject 3 Univers (NORDITROPI 5-05 mg under ity of N FLEXPRO) 00:00: the [place] 15 mg/1.5 00 daily. Medical mL (10 Branch mg/mL) PnIj Somatropin 2014-0 Yes [id number] 3mg inject 3 Univers (NORDITROPI 5-05 mg under ity of N FLEXPRO) 00:00: the [place] 15 mg/1.5 00 daily. Medical mL (10 Branch mg/mL) PnIj Somatropin 2014-0 Yes [id number] 3mg inject 3 Univers (NORDITROPI 5-05 mg under ity of N FLEXPRO) 00:00: the [place] 15 mg/1.5 00 daily. Medical mL (10 Branch mg/mL) PnIj Somatropin 2014- Yes [id number] 3mg inject 3 Univers (NORDITROPI 5-05 mg under ity of N FLEXPRO) 00:00: the [place] 15 mg/1.5 00 daily. Medical mL (10 Branch mg/mL) PnIj Somatropin 2014-0 Yes [id number] 3mg inject 3 Univers (NORDITROPI 5-05 mg under ity of N FLEXPRO) 00:00: the [place] 15 mg/1.5 00 daily. Medical mL (10 Branch mg/mL) PnIj Somatropin 2014-0 Yes [id number] 3mg inject 3 Univers (NORDITROPI 5-05 mg under ity of N FLEXPRO) 00:00: the [place] 15 mg/1.5 00 daily. Medical mL (10 Branch mg/mL) PnIj Somatropin 2014-0 Yes [id number] 3mg inject 3 Univers (NORDITROPI 5-05 mg under ity of N FLEXPRO) 00:00: the [place] 15 mg/1.5 00 daily. Medical mL (10 Branch mg/mL) PnIj Somatropin 2014-0 Yes [id number] 3mg inject 3 Univers (NORDITROPI 5-05 mg under ity of N FLEXPRO) 00:00: the [place] 15 mg/1.5 00 daily. Medical mL (10 Branch mg/mL) PnIj Somatropin 2014-0 Yes [id number] 3mg inject 3 Univers (NORDITROPI 5-05 mg under ity of N FLEXPRO) 00:00: the [place] 15 mg/1.5 00 daily. Medical mL (10 Branch mg/mL) PnIj Somatropin 2014-0 Yes [id number] 3mg inject 3 Univers (NORDITROPI 5-05 mg under ity of N FLEXPRO) 00:00: the [place] 15 mg/1.5 00 daily. Medical mL (10 Branch mg/mL) PnIj Somatropin 2014-0 Yes [id number] 3mg inject 3 Univers (NORDITROPI 5-05 mg under ity of N FLEXPRO) 00:00: the [place] 15 mg/1.5 00 daily. Medical mL (10 Branch mg/mL) PnIj Somatropin 2014-0 Yes [id number] 3mg inject 3 Univers (NORDITROPI 5-05 mg under ity of N FLEXPRO) 00:00: the [place] 15 mg/1.5 00 daily. Medical mL (10 Branch mg/mL) PnIj Somatropin Yes [id number] 3mg inject 3 Univers (NORDITROPI 5-05 mg under ity of N FLEXPRO) 00:00: the [place] 15 mg/1.5 00 daily. Medical mL (10 Branch mg/mL) PnIj Somatropin Yes [id number] 3mg inject 3 Univers (NORDITROPI 5-05 mg under ity of N FLEXPRO) 00:00: the [place] 15 mg/1.5 00 daily. Medical mL (10 Branch mg/mL) PnIj Somatropin Yes [id number] 3mg inject 3 Univers (NORDITROPI 5-05 mg under ity of N FLEXPRO) 00:00: the [place] 15 mg/1.5 00 daily. Medical mL (10 Branch mg/mL) PnIj Somatropin 2020- No [id number] 3mg inject 3 Univers (NORDITROPI 5-05 04-12 [...] Immunizations Ordered Filled Immunization Date Status Comments [facility] e Immunization Name Name Varicella 2019-11-24 [...] mL 00:00:00 [facility] IM 6+ MO Branch Tdap 2019-09-30 Completed University of 00:00:00 [facility] Influenza Virus 2019-09-30 Completed Universit y of Vaccine Quad .5 mL 00:00:00 [facility] IM 6+ MO Branch Tdap 2019-09-30 Completed University of 00:00:00 [facility] Influenza Virus 2019-09-30 Completed Universit y of Vaccine [place] .5 mL 00:00:00 [facility] 6+ MO [place] Tdap 2019-09-30 Completed University of 00:00:00 [facility] Influenza Virus 2019-09-30 Completed Universit y of Vaccine [place] .5 mL 00:00:00 [facility] 6+ MO Branch Tdap 2019-09-30 Completed University of 00:00:00 [facility] Influenza Virus 2019-09-30 Completed Universit y of Vaccine [place] .5 mL 00:00:00 [place] [facility] 6+ MO Branch Tdap 2019-09-30 Completed University of 00:00:00 [facility] Influenza Virus 2019-09-30 Completed Universit y of Vaccine [place] .5 mL 00:00:00 [place] [facility] 6+ MO Branch Tdap 2019-09-30 Completed University of 00:00:00 [facility] Influenza Virus 2019-09-30 Completed Universit y of Vaccine [place] .5 mL 00:00:00 [place] [facility] 6+ MO Branch Tdap 2019-09-30 Completed University of 00:00:00 [facility] Influenza Virus 2019-09-30 Completed Universit y of Vaccine [place] .5 mL 00:00:00 [facility] 6+ MO Branch Tdap 2019-09-30 Completed University of 00:00:00 [facility] Influenza Virus 2019-09-30 Completed Universit y of Vaccine [place] .5 mL 00:00:00 [facility] 6+ MO Branch Tdap 2019-09-30 Completed University of 00:00:00 [facility] Influenza Virus 2019-09-30 Completed Universit y of Vaccine [place] .5 mL 00:00:00 [facility] 6+ MO Branch Tdap 2019-09-30 Completed University of 00:00:00 [facility] Influenza Virus 2019-09-30 Completed Universit y of Vaccine [place] .5 mL 00:00:00 [facility] 6+ MO Branch Tdap 2019-09-30 Completed University of 00:00:00 [facility] Influenza Virus 2019-09-30 Completed Universit y of Vaccine [place] .5 mL 00:00:00 [facility] 6+ MO Branch Tdap 2019-09-30 Completed University of 00:00:00 [facility] Influenza Virus 2019-09-30 Completed Universit y of Vaccine [place] .5 mL 00:00:00 [place] [facility] 6+ MO Branch Tdap 2019-09-30 Completed University of 00:00:00 [facility] Influenza Virus 2019-09-30 Completed Universit y of Vaccine [place] .5 mL 00:00:00 [place] [facility] 6+ MO Branch Tdap 2019-09-30 Completed University of 00:00:00 [facility] Influenza Virus 2019-09-30 Completed Universit y of Vaccine [place] .5 mL 00:00:00 [place] [facility] 6+ MO Branch Tdap 2019-09-30 Completed University of 00:00:00 [facility] Influenza Virus 2019-09-30 Completed Universit y of Vaccine [place] .5 mL 00:00:00 [place] [facility] 6+ MO Branch Tdap 2019-09-30 Completed University of 00:00:00 [facility] Influenza Virus 2019-09-30 Completed Universit y of Vaccine [place] .5 mL 00:00:00 [facility] 6+ MO Branch Tdap 2019-09-30 Completed University of 00:00:00 [facility] Influenza Virus 2019-09-30 Completed Universit y of Vaccine [place] .5 mL 00:00:00 [facility] 6+ MO Branch Tdap 2019-09-30 Completed University of 00:00:00 [facility] Influenza Virus 2019-09-30 Completed Universit y of Vaccine [place] .5 mL 00:00:00 [facility] 6+ MO Branch Tdap 2019-09-30 Completed University of 00:00:00 [facility] Influenza Virus 2019-09-30 Completed Universit y of Vaccine [place] .5 mL 00:00:00 [facility] 6+ MO Branch Tdap 2019-09-30 Completed University of 00:00:00 [facility] Influenza Virus 2019-09-30 Completed Universit y of Vaccine [place] .5 mL 00:00:00 [facility] 6+ MO Branch Tdap 2019-09-30 Completed University of 00:00:00 [facility] Influenza Virus 2019-09-30 Completed Universit y of Vaccine Quad .5 mL 00:00:00 [facility] 6+ [facility] Branch Tdap 2019-09-30 Completed University of 00:00:00 [facility] Influenza Virus 2019-09-30 Completed Universit y of Vaccine Quad .5 mL 00:00:00 [facility] 6+ MO Branch TDAP 2019-09-30 Completed University of 00:00:00 [facility] Influenza Virus 2019-09-30 Completed Universit y of [facility]ine [facility] .5 mL 00:00:00 [facility] 6+ MO Branch Tdap 2019-09-30 Completed University of 00:00:00 [facility] Influenza Virus 2019-09-30 Completed Universit y of Vaccine [facility] .5 mL 00:00:00 [facility] 6+ MO Branch Tdap 2019-09-30 Completed University of 00:00:00 [facility] Influenza Virus 2019-09-30 Completed Universit y of Vaccine [facility] .5 mL 00:00:00 [facility] 6+ [facility] Tdap 2019-09-30 Completed University 00:00:00 [facility] Influenza Virus 2019-09-30 Completed Universit y of Vaccine [facility] .5 mL 00:00:00 [facility] 6[facility] Tdap 2019-09-30 Completed University 00:00:00 [facility] Vital Signs Vital Name Observation Time Observation Value Comments Source Systolic blood 2020-01-07 14:30:00 108 mm[Hg] Univer sity of pressure [facility] Diastolic blood 2020-01-07 14:30:00 67 mm[Hg] Unive rsity of pressure [facility] Heart rate 2020-01-07 14:30:00 66 /min Universi ty of [facility] Body temperature 2020-01-07 14:30:00 36.56 Akua Univ ersity of [facility] Respiratory rate 2020-01-07 14:30:00 16 /min Univ ersity of [facility] Body height 2020-01-07 14:30:00 152.4 cm Universi ty of [facility] Body weight 2020-01-07 14:30:00 68.55 kg Universi ty of [facility] BMI 2020-01-07 14:30:00 29.51 kg/m2 Universi ty of [facility] Systolic blood 2019-11-28 20:21:00 112 mm[Hg] Univer sity of pressure [facility] Diastolic blood 2019-11-28 20:21:00 77 mm[Hg] Unive rsity of pressure [facility] Heart rate 2019-11-28 20:21:00 83 /min Universi ty of [facility] Body temperature 2019-11-28 20:21:00 36.56 [place]ua Univ ersity of [facility] Respiratory rate 2019-11-28 20:21:00 16 /min Univ ersity of [facility] Body height 2019-11-28 20:21:00 152.4 cm Universi ty of [facility] Body weight 2019-11-28 20:21:00 70.081 kg Universi ty of [facility] BMI 2019-11-28 20:21:00 30.17 kg/m2 Universi ty of [facility] Systolic blood 2019-11-28 20:21:00 112 mm[Hg] Univer sity of pressure [facility] Diastolic blood 2019-11-28 20:21:00 77 mm[Hg] Unive rsity of pressure [facility] Heart rate 2019-11-28 20:21:00 83 /min Universi ty of [facility] Body temperature 2019-11-28 20:21:00 36.56 [place] Univ ersity of [facility] Respiratory rate 2019-11-28 20:21:00 16 /min Univ ersity of [facility] Body height 2019-11-28 20:21:00 152.4 cm Universi ty of [facility] Body weight 2019-11-28 20:21:00 70.081 kg Universi ty of [facility] BMI 2019-11-28 20:21:00 30.17 kg/m2 Universi ty of [facility] Systolic blood 2019-11-24 12:57:00 117 mm[Hg] Univer sity of pressure [facility] Diastolic blood 2019-11-24 12:57:00 59 mm[Hg] Unive rsity of pressure [facility] Heart rate 2019-11-24 12:57:00 99 /min Universi ty of [facility] Body temperature 2019-11-24 12:57:00 36.44 [place] Univ ersity of [facility] Respiratory rate 2019-11-24 12:57:00 18 /min Univ ersity of [facility] Oxygen saturation in 2019-11-24 12:57:00 100 /min University Arterial blood by [facility] Pulse oximetry Branch Body height 2019-11-22 17:18:00 152.4 cm Universi ty of [facility] Body weight 2019-11-22 17:18:00 72.122 kg Universi ty of [facility] BMI 2019-11-22 17:18:00 31.05 kg/m2 Universi ty of [facility] Systolic blood 2019-11-24 12:57:00 117 mm[Hg] Univer sity of pressure [facility] Diastolic blood 2019-11-24 12:57:00 59 mm[Hg] Unive rsity of pressure [facility] Heart rate 2019-11-24 12:57:00 99 /min Universi ty of [facility] Body temperature 2019-11-24 12:57:00 36.44 Akua Univ ersity of [facility] Respiratory rate 2019-11-24 12:57:00 18 /min Univ ersity of [facility] Oxygen saturation in 2019-11-24 12:57:00 100 /min University Arterial blood by [facility] Pulse oximetry Branch Body height 2019-11-22 17:18:00 152.4 cm Universi ty of [facility] Body weight 2019-11-22 17:18:00 72.122 kg Universi ty of [facility] BMI 2019-11-22 17:18:00 31.05 kg/m2 Universi ty of [facility] Systolic blood 2019-11-18 13:42:00 124 mm[Hg] Univer sity of pressure [facility] Diastolic blood 2019-11-18 13:42:00 70 mm[Hg] Unive rsity of pressure [facility] Heart rate 2019-11-18 13:42:00 79 /min Universi ty of [facility] Body temperature 2019-11-18 13:42:00 36.17 Akua Univ ersity of [facility] Respiratory rate 2019-11-18 13:42:00 16 /min Univ ersity of [facility] Body height 2019-11-18 13:42:00 152.4 cm Universi ty of [facility] Body weight 2019-11-18 13:42:00 73.057 kg Universi ty of [facility] BMI 2019-11-18 13:42:00 31.46 kg/m2 Universi ty of [facility] Systolic blood 2019-11-18 13:42:00 124 mm[Hg] Univer sity of pressure [facility] Diastolic blood 2019-11-18 13:42:00 70 mm[Hg] Unive rsity of pressure [facility] Heart rate 2019-11-18 13:42:00 79 /min Universi ty of [facility] Body temperature 2019-11-18 13:42:00 36.17 Akua Univ ersity of [facility] Respiratory rate 2019-11-18 13:42:00 16 /min Univ ersity of [facility] Body height 2019-11-18 13:42:00 152.4 cm Universi ty of [facility] Body weight 2019-11-18 13:42:00 73.057 kg Universi ty of [facility] BMI 2019-11-18 13:42:00 31.46 kg/m2 Universi ty of [facility] Systolic blood 2019-11-11 13:57:00 118 mm[Hg] Univer sity of pressure [facility] Diastolic blood 2019-11-11 13:57:00 69 mm[Hg] Unive rsity of pressure [facility] Heart rate 2019-11-11 13:57:00 82 /min Universi ty of [facility] Body temperature 2019-11-11 13:57:00 36.33 Akua Univ ersity of [facility] Respiratory rate 2019-11-11 13:57:00 16 /min Univ ersity of [facility] Body height 2019-11-11 13:57:00 152.4 cm Universi ty of [facility] Body weight 2019-11-11 13:57:00 71.697 kg Universi ty of [facility] BMI 2019-11-11 13:57:00 30.87 kg/m2 Universi ty of [facility] Systolic blood 2019-11-11 13:57:00 118 mm[Hg] Univer sity of pressure [facility] Diastolic blood 2019-11-11 13:57:00 69 mm[Hg] Unive rsity of pressure [facility] Heart rate 2019-11-11 13:57:00 82 /min Universi ty of [facility] Body temperature 2019-11-11 13:57:00 36.33 Akua Univ ersity of [facility] Respiratory rate 2019-11-11 13:57:00 16 /min Univ ersity of [facility] Body height 2019-11-11 13:57:00 152.4 cm Universi ty of [facility] Body weight 2019-11-11 13:57:00 71.697 kg Universi ty of [facility] BMI 2019-11-11 13:57:00 30.87 kg/m2 Universi ty of [facility] Systolic blood 2019-10-27 15:32:00 114 mm[Hg] Univer sity of pressure [facility] Diastolic blood 2019-10-27 15:32:00 66 mm[Hg] Unive rsity of pressure [facility] Heart rate 2019-10-27 15:32:00 83 /min Universi ty of [facility] Body temperature 2019-10-27 15:32:00 36.89 Akua Univ ersity of [facility] Respiratory rate 2019-10-27 15:32:00 16 /min Univ ersity of [facility] Body height 2019-10-27 15:32:00 152.4 cm Universi ty of [facility] Body weight 2019-10-27 15:32:00 70.308 kg Universi ty of [facility] BMI 2019-10-27 15:32:00 30.27 kg/m2 Universi ty of [facility] Systolic blood 2019-10-13 15:00:00 116 mm[Hg] Univer sity of pressure [facility] Diastolic blood 2019-10-13 15:00:00 67 mm[Hg] Unive rsity of pressure [facility] Heart rate 2019-10-13 15:00:00 84 /min Universi ty of [facility] Body temperature 2019-10-13 15:00:00 36.39 Akua Univ ersity of [facility] Respiratory rate 2019-10-13 15:00:00 16 /min Univ ersity of [facility] Body height 2019-10-13 15:00:00 152.4 cm Universi ty of [facility] Body weight 2019-10-13 15:00:00 69.31 kg Universi ty of [facility] BMI 2019-10-13 15:00:00 29.84 kg/m2 Universi ty of [facility] Systolic blood 2019-10-02 15:13:00 128 mm[Hg] Univer sity of pressure [facility] Diastolic blood 2019-10-02 15:13:00 71 mm[Hg] Unive rsity of pressure [facility] Heart rate 2019-10-02 15:13:00 81 /min Universi ty of [facility] Body temperature 2019-10-02 15:13:00 36.22 Akua Univ ersity of [facility] Respiratory rate 2019-10-02 15:13:00 16 /min Univ ersity of [facility] Body height 2019-10-02 15:13:00 152.4 cm Universi ty of [facility] Body weight 2019-10-02 15:13:00 67.586 kg Universi ty of [facility] BMI 2019-10-02 15:13:00 29.10 kg/m2 Universi ty of [facility] Systolic blood 2019-09-30 19:43:00 113 mm[Hg] Univer sity of pressure [facility] Diastolic blood 2019-09-30 19:43:00 67 mm[Hg] Unive rsity of pressure [facility] Heart rate 2019-09-30 19:43:00 91 /min [facility] Body temperature 2019-09-30 19:43:00 36.22 Akua [facility] Respiratory rate 2019-09-30 19:43:00 16 /min [facility] Body height 2019-09-30 19:43:00 152.4 cm [facility] Body weight 2019-09-30 19:43:00 67.189 kg [facility] BMI 2019-09-30 19:43:00 28.93 kg/m2 [facility] Procedures Procedure Date / Time Performing Clinician Source Performed POCT TEST 2020-01-07 14:33:00 Rashid Cha [facility] CONSENT FOR 2020-01-07 05:01:00 Doctor Unassigned, No [facility] CONTRACEPTION Name [facility] CBC WITH DIFFERENTIAL 2019-11-23 09:13:00 [facility] ARTERIAL CORD GAS 2019-11-22 23:50:00 [facility] VENOUS CORD GAS 2019-11-22 23:49:00 [facility] o f [facility] SECTION 2019-11-22 23:00:00 Fidelia Billings [facility] HEPATITIS B SURFACE 2019-11-22 20:42:[address] [facility] ANTIGEN [facility] GALV ONLY - SYPHILIS 2019-11-22 20:42:00 [facility] IGG/IGM [facility] HB ABO GROUPING 2019-11-22 20:02:00 [facility] o f [facility] RHO (D) IMMUNE GLOBULIN 2019-11-22 20:02:00 Reynold Jones [facility] CORONAVIRUS COVID-19 2019-11-22 17:09:00 [facility] POCT URINALYSIS 2019-11-18 13:49:00 Carla Rajan [facility] POCT URINALYSIS 2019-11-11 14:00:00 Carla Rajan [facility] POCT URINALYSIS 2019-10-27 17:09:00 Carla Rajan [facility] AUTHORIZATION TO RELEASE 2019-10-09 06:01:00 Doctor Unassigned, No [facility] PHI TO [facility] TDAP VACCINE, >11 YRS, 2019-09-30 20:39:21 Carla Rajan [facility] FLU VACC ([phone]), 6+ 2019-09-30 20:22:55 Carla Rajan [facility] MONTHS, IM, QUAD [facility] POCT URINALYSIS W/O 2019-09-30 19:35:00 Carla Rajan Uni versity [facility] SPECIFIC GRAVITY [facility] POCT TEST 2019-09-30 19:34:00 [facility] 2019-09-30 19:11:56 Doctor Unassigned, No [facility] Encounters Start End Encounter Admission Attending Care Care Encounter Source Date/Time Date/Time Type Type Clinicians Facility Department ID 2021-06-09 Outpatient [facility] [id number] Univers 17:44:35 ity [facility] 2020-11-02 2020-11-02 Patient Zander COJUAN 1.2.840.114 [id number] Univers 00:00:00 00:00:00 Outreach Declan PRIMARY 350.1.13.10 i ty of [facility] 4[place]2.7.2.[place] [id number] [address] 2020-01-07 2020-01-07 Office Starla [facility] 1.2.840.114 [id number] Univers 09:23:30 10:10:21 Visit Rashid Kidd ELECTRIC METER INSPECTOR 350.1.13.10 ity [facility] 4.2.7.2.686 Juan as MATERNAL [phone] Med ical & CHILD [address] [place] [address] 2020-01-07 2020-01-07 Outpatient R STARLA [facility] [id number] Univers 09:00:00 09:00:00 RASHID gaoy o f [facility] 2020-01-07 2020-01-07 Orders Doctor ESTUARDO 1.2.840.114 [id number] Univers 00:00:00 00:00:00 Only Unassigned, LUKE 350.1.13.10 ity of [place] [facility] 4.2.7.2.686 Juan as [phone] [address] 2019-12-16 2019-12-16 Outpatient R CHA [facility] [id number] Univers 09:15:00 09:15:00 RASHID christie o f [facility] 2019-12-16 2019-12-16 [facility] 1.2.840.114 [id number] Univers 07:34:01 09:03:14 ne Visit Rashid R ELECTRIC METER INSPECTOR 350.1.13.10 ity of [facility] 4.2.7.2.686 Juan as MATERNAL [phone] [facility] ical & CHILD [address] [place] [address] 2019-12-16 2019-12-16 [facility]ulio [facility] 1.2.840.114 [id number] 07:34:01 09:03:14 ne Visit Rashid Bernabe ELECTRIC METER INSPECTOR 350.1.13.10 [facility] 4.2.7.2.686 MATERNAL [phone] & CHILD [address] [place] [address] 2019-11-28 2019-11-28 Nurse Visit, Qian Nurse [facility] 1.2 .840.114 [id number] Univers 14:57:15 15:27:42 Visit Carla Rajan ELECTRIC METER INSPECTOR 350.1.13. 10 ity of [facility] 4.2.7.2.686 Juan as MATERNAL [phone] [facility] ical & CHILD [address] [place] [address] 2019-11-28 2019-11-28 Nurse Visit, [facility] 1.2.840.114 [id number] 14:57:15 15:27:42 Visit Qian ELECTRIC METER INSPECTOR 350.1.13.10 Nurse [facility] 4.2.7.2.686 MATERNAL [id number] & CHILD [address] [place] [address] 2019-11-28 2019-11-28 Outpatient R SATINDER [facility] [id number] Univers 15:00:00 15:00:00 CARLA moore [facility] 2019-11-25 2019-11-25 Outpatient R AKINSIPE, [facility] [id number] Univers 09:30:00 09:30:00 CARLA gaoy o f [facility] 2019-11-25 2019-11-25 Outpatient R AKINSIPE, [facility] [id number] Univers 09:15:00 09:15:00 CARLA christie o [facility] 2019-11-22 2019-11-24 [facility] [id number] Univers 11:49:00 12:16:00 Encounter Fidelia [place] 350.1.13.10 ity of HOSPITAL 4.2.7.2.686 Juan as [id number] [address] 2019-11-22 2019-11-24 [facility] [id number] 11:49:00 12:16:00 Encounter Fidelia [place] 350.1.13.10 [facility] 4.2.7.2.686 [id number] [facility] 2019-11-18 2019-11-18 Routine Akinsipe, [facility] [id number] Univers 08:34:45 08:55:27 Carla C ELECTRIC METER INSPECTOR 350.1.13.10 ity of Visit REGIONAL 4.2.7.2.686 Juan as MATERNAL [id number] Med ical & CHILD [address] [place] [address] 2019-11-18 2019-11-18 Routine Akinsipe, [facility] [id number] 08:34:45 08:55:27 Carla C ELECTRIC METER INSPECTOR 350.1.13.10 Visit REGIONAL 4.2.7.2.686 MATERNAL [id number] & CHILD [address] [place] [address] 2019-11-18 2019-11-18 Outpatient R AKINSIPE, [facility] [id number] Univers 08:45:00 08:45:00 CARLA gaoy o f [facility] 2019-11-11 2019-11-11 Routine Akinsipe, [facility] [id number] Univers 08:49:21 09:26:07 Carla C ELECTRIC METER INSPECTOR 350.1.13.10 ity of Visit REGIONAL 4.2.7.2.686 Juan as MATERNAL [phone] [facility] & CHILD [address] [place] [address] 2019-11-11 2019-11-11 Routine [facility] [id number] 08:49:21 09:26:07 Carla C ELECTRIC METER INSPECTOR 350.1.13.10 Visit REGIONAL 4.2.7.2.686 MATERNAL [id number] & CHILD [address] [place] [address] 2019-11-11 2019-11-11 Outpatient R UMMSHANT, [facility] [id number] Univers 09:00:00 09:00:00 CARLA de leon oscar [facility] 2019-10-27 2019-10-27 Routine [facility] [id number] Univers 09:42:46 12:09:33 Carla Curt ELECTRIC METER INSPECTOR 350.1.13.10 ity of Visit [facility] 4.2.7.2.686 Juan as MATERNAL [id number] [facility] & CHILD [address] [place] [address] 2019-10-27 2019-10-27 Outpatient R UMMSHANT, [facility] [id number] Univers 09:30:00 09:30:00 CARLA de leon oscar [facility] 2019-10-13 2019-10-13 Routine Faculty, Han [facility] 1.2 .840.114 [id number] Univers 08:47:13 11:29:01 Leandro Neff ELECTRIC METER INSPECTOR 350.1.13.10 ity of Visit [facility] 4.2.7.2.686 Juan as MATERNAL [id number] [facility] & [facility] [address] [place] [address] 2019-10-13 2019-10-13 Outpatient R [facility] [id number] Univers 09:00:00 09:00:00 ity of [facility] 2019-10-09 2019-10-09 Orders Doctor MARTE 1.2.840.114 [id number] Univers 00:00:00 00:00:00 Only Unassigned, LUKE 350.1.13.10 ity of [place] [facility] 4.2.7.2.686 Juan as [phone] [facility] [address] [place] 2019-10-02 2019-10-02 Nurse Visit, Qian Nurse [facility] 1.2 .840.114 [id number] Univers 09:02:47 09:32:54 Visit Carla Rajan C ELECTRIC METER INSPECTOR 350.1.13. 10 ity of REGIONAL 4.2.7.2.686 Juan as MATERNAL [id number] [facility] ical & CHILD [address] [place] [address] 2019-10-01 2019-10-01 [facility] Ultrasound, Ayden [facility] 1.2 .840.114 [id number] Univers 09:01:49 10:01:49 Visit Carla Rajan C ELECTRIC METER INSPECTOR 350.1.13. 10 ity of REGIONAL 4.2.7.2.686 Juan as MATERNAL [id number] [facility] ical & CHILD [address] [facility] 2019-10-01 2019-10-01 [facility] Worker Lab, Qian [place] 1.2.840. 114 [id number] Univers 08:36:33 08:41:17 Visit Carla Rajan Curt ELECTRIC METER INSPECTOR 350.1.13. 10 ity of REGIONAL 4.2.7.2.686 Juan as MATERNAL [phone] [facility] ical & CHILD [address] [place] [address] 2019-10-01 2019-10-01 Abstract Satinder COJUAN 1.2.840.114 [id number] Univers 00:00:00 00:00:00 Carla C ELECTRIC METER INSPECTOR 350.1.13.10 ity of REGIONAL 4.2.7.2.686 Juan as MATERNAL [id number] [facility] ical & CHILD [address] [place] [address] 2019-10-01 2019-10-01 Telephone Satinder [facility] 1.2.840.114 [id number] Univers 00:00:00 00:00:00 Carla C ELECTRIC METER INSPECTOR 350.1.13.10 ity of REGIONAL 4.2.7.2.686 Juan as MATERNAL [phone] [facility] ical & CHILD [address] [place] [address] 2019-09-30 2019-09-30 Initial Satinder COJUAN [id number] Univers 13:30:37 14:59:32 Carla C ELECTRIC METER INSPECTOR 350.1.13.10 ity of Visit [facility] 4.2.7.2.686 Juan as MATERNAL [phone] Med ical & CHILD [address] [place] [address] 2019-09-30 2019-09-30 Orders Doctor ESTUARDO 1.2.840.114 [id number] [facility] 00:00:00 00:00:00 Only Unassigned, LUKE 350.1.13.10 ity of [place] [facility] 4.2.7.2.686 Juan as [id number] [address] Results Test Description Test Time Test Comments Results Result Comments Source POCT TEST 2020-01-07 14:33:00 Test Item Value Reference Range Interpretation Comme nts POCT PREG (test code = 1605) Negative On board controls acceptable with C Line (test code = 3574) Yes POCT PREG LOT # (test code = 3575) POCT PREG TEST DATE (test code = 3576) [id number] 14:33:00 Test Item Value Reference Range Interpretation Comments POCT PREG (test code = 1605) Negative On board controls acceptable with C Yes Line (test code = 3574) POCT PREG LOT # (test code = 3575) POCT PREG TEST DATE (test code = 3576) [facility] SYPHILIS [id number] 15:38:00 Test Item Value Reference Range Interpretation Comments Syphilis IgG/IgM (test Non-reactive Non-reactive code = 13001-2) JOSE RAFAEL (test code = JOSE RAFAEL) Non-reactive - No serologic evidence of T. pallidum infection. Cannot exclude incubating or early syphilis. Submit a second specimen in 2-4 weeks if syphilis is clinically suspected. Equivocal - Further testing to follow. Reactive - Further testing to follow. Lab Interpretation (test Normal code = 63855-9) [facility] [id number] 09:57:00 Test Item Value Reference Range Interpretation [...] RDW-SD (test code = 44.9 fL 38.5-49 52523-2) RDW-CV (test code = 13.5 % 11.5-14 788-0) PLT (test code = See_Comment [Automated 777-3) message] The system which generated this result transmit gianna reference range : 135 - 361 10*3/ ?L. The reference range was not u sed to interpret th is result as normal/abnormal . MPV (test code = 11.5 fL 9.4-13.3 63578-2) NRBC/100 WBC (test See_Comment [Automat ed code = 2422651509) message] The system which generated this result transmit gianna reference range : 0.0 - 10.0 /100 WBCs. The reference range was not used to interpret this result as normal/abnormal . NRBC x10^3 (test code <0.01 See_Comment [Auto mated = [id number]) message] The system which generated this result transmit gianna reference range : 10*3/?L. The reference range was not used to interpret this result as normal/abnormal . GRAN MAT (NEUT) % 82.3 % (test code = 770-8) IMM GRAN % (test code 1.00 % = 1609200165) LYMPH % (test code = 10.2 % 736-9) MONO % (test code = 5.6 % 5905-5) EOS % (test code = 0.5 % 713-8) BASO % (test code = 0.4 % 706-2) GRAN MAT x10^3(ANC) 14.09 10*3/uL 1.5-10.3 H (test code = 0437991406) IMM GRAN x10^3 (test 0.17 10*3/uL 0-0.06 H code = 7939409157) LYMPH x10^3 (test code 1.74 10*3/uL 0.7-7.4 = 731-0) MONO x10^3 (test code 0.96 10*3/uL 0-0.5 H = 742-7) EOS x10^3 (test code = 0.09 10*3/uL 0-0.4 711-2) BASO x10^3 (test code 0.06 10*3/uL 0-0.1 = 704-7) BANDS (test code = Increased A [id number]) Lab Interpretation Abnormal (test code = 09742-1) [facility] IMMUNE [id number] 04:07:12 Test Item Value Reference Range Interpretation Comments RHIG CANDIDATE? No- see comment Patient i s not a (test code = candidate for R hIg- 5055) Patient is Rh Positive.Perfor med at [facility] Laboratory Services - [facility] Blood [address] [place], [place] [address]Toll Free: [phone] A No. [id number] [facility] [id number] 23:57:00 Test Item Value Reference Range Interpretation Comments BASE EXCESS, CORD (test mEq/L code = 5908328166) AC PH, CORD (BEAKER) 7.18-7.38 (test code = 2316037423) PC02, CORD (test code = See_Comment H [Au tomated message] [id number]) The system [employer] generated this result transmitted ref erence range: 32 - 66 mmHg. The reference r devin was not used to interpret this result as normal/abnor mal. PO2, CORD (test code = See_Comment [Aut omated message] 0975230043) The system [employer] generated this result transmitted ref erence range: 10 - 30 mmHg. The reference r devin was not used to interpret this result as normal/abnor mal. BICARBONATE, CORD (test See_Comment H [Au tomated message] code = 7475659514) The syste m which generated this result transmitted ref erence range: 17 - 27 mEq/L. The reference r devin was not used to interpret this result as normal/abnor mal. Lab Interpretation (test Abnormal code = 14211-2) [facility] [id number] 23:52:00 Test Item Value Reference Range Interpretation Comments VENOUS BASE EXCESS, CORD mEq/L (test code = 6815870088) VENOUS PH, CORD (test 7.25-7.45 code = 0539130819) VENOUS PC02, CORD (test See_Comment H [Au tomated message] code = 6237650727) The syste m which generated this result transmitted ref erence range: 27 - 49 mmHg. The reference r devin was not used to interpret this result as normal/abnor mal. VENOUS PO2, CORD (test See_Comment [Aut omated message] code = 9541047510) The syste m which generated this result transmitted ref erence range: 17 - 41 mmHg. The reference r devin was not used to interpret this result as normal/abnor mal. VENOUS BICARBONATE, CORD See_Comment [A utomated message] (test code = 9784089658) The system which generated this result transmitted ref erence range: 12 - 29 mEq/L. The reference r devin was not used to interpret this result as normal/abnor mal. Lab Interpretation (test Abnormal code = 03658-4) [facility]atitis B Surface [id number] 22:06:00 Test Item Value Reference Range Interpretation Comments HBsAg Semi-Quantitative (test code = Negative Negative 5195-3) [facility]Type [facility] Screen - ONCE [id number] 21:39:44 Test Item Value Reference Range Interpretation Comments ABO & RH (test code O POSITIVE Performe d at [facility] = 20) Laboratory Serv [facility] [facility] s [address]Hnff Free: [phone] A No. [id number] IAT (test code = Negative Performed a t [facility] 1185) Laboratory Serv [facility] [facility] s [id number] Free: [phone] A No. [id number] [facility]CORON[facility]US COVID-19 [id number] 18:00:00 Test Item Value Reference Range Interpretation Comments SARS-CoV-2 (test code = Not Detected Not Detected 42555-9) JOSE RAFAEL (test code = JOSE RAFAEL) ID NOW COVID-19 Assay is an isothermal nucleic acid amplification test intended for the qualitative detection of nucleic acid from SARS-CoV-2 viral RNA in nasopharyngeal ([employer]) specimens. It is used under Emergency Use [...] indicated. Lab Interpretation Normal (test code = 73056-6) [facility] URINALYSIS W SPECIFIC [id number] 13:49:00 Test Item Value Reference Range Interpretation [...] POCT U APPEAR (test code = 3267) [facility] URINALYSIS W SPECIFIC [id number] 14:00:00 Test Item Value Reference Range Interpretation [...] POCT U APPEAR (test code = 3267) [facility] URINALYSIS W SPECIFIC [id number] 14:00:00 Test Item Value Reference Range Interpretation [...] POCT U APPEAR (test code = 3267) [facility] URINALYSIS W SPECIFIC [id number] 17:09:00 Test Item Value Reference Range Interpretation [...] POCT U APPEAR (test code = 3267) [facility] URINALYSIS W/O SPECIFIC [id number] 19:35:00 Test Item Value Reference Range Interpretation [...] code = 3257) Neg Negative - Negative [facility] URINALYSIS W/O SPECIFIC [id number] 19:35:00 Test Item Value Reference Range Interpretation [...] code = 3257) Neg Negative - [facility] [id number] 19:35:00 Test Item Value Reference Range Interpretation [...] code = 3257) Neg Negative - Negative [facility] [id number] 19:35:00 Test Item Value Reference Range Interpretation [...] code = 3257) Neg Negative - Negative [facility]PO[facility] [id number] 19:34:00 Test Item Value Reference Range Interpretation Comments POCT PREG (test code = 1605) Positive On board controls acceptable with C Yes Line (test code = 3574) POCT PREG LOT # (test code = 3575) POCT PREG TEST DATE (test code = 3576) [facility]PO[facility] [id number] 19:34:00 Test Item Value Reference Range Interpretation Comments POCT PREG (test code = 1605) Positive On board controls acceptable with C Yes Line (test code = 3574) POCT PREG LOT # (test code = 3575) POCT PREG TEST DATE (test code = 3576) [facility] [id number] 19:34:00 Test Item Value Reference Range Interpretation Comments POCT PREG (test code = 1605) Positive On board controls acceptable with C Yes Line (test code = 3574) POCT PREG LOT # (test code = 3575) POCT PREG TEST DATE (test code = 3576) [facility] [id number] 19:34:00 Test Item Value Reference Range Interpretation Comments POCT PREG (test code = 1605) Positive On board controls acceptable with C Yes Line (test code = 3574) POCT PREG LOT # (test code = 3575) POCT PREG TEST DATE (test code = 3576) [facility]
[2022-09-12] MEDS ORDERED: DIPHENHYDRAMINE 25 MG TAB/CAP ONE (04:15)
[2022-09-12] MEDS ORDERED: predniSONE 20 MG TAB ONE (04:15)
[2022-09-12] MEDS ORDERED: FAMOTIDINE 20 MG TAB ONE (04:16)
--- NOTE | 2022-09-12 04:59 | EDPHYS ---
Physician Documentation [facility] Name: Atiya Castellanos Age: 22 yrs Sex: Female : 2000 Arrival Date: 09/12/2022 Time: 03:35 Bed 16 Private MD: ED Physician Lisandro Judd HPI: 09/12 04:46 This 22 yrs old Female presents to ER via Ambulatory with complaints of Rash. [facility] 04:46 The patient's rash thought to be caused by an unknown cause. The rash is located on the hira body diffusely. The rash can be described as raised, urticarial. Onset: The symptoms/episode began/occurred yesterday. Associated signs and symptoms: Pertinent positives: burning sensation, itching. Severity of symptoms: At their worst the symptoms were mild in the emergency department the symptoms are unchanged. Treatment given at home: Benadryl. 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 - Social history:: Smoking status: Patient denies any tobacco usage or history of. - Family history:: not pertinent. ROS: 04:46 Constitutional: Negative for fever, chills, and weight loss, Eyes: Negative for injury, hira pain, redness, and discharge, ENT: Negative for injury, pain, and discharge, Neck: Negative for injury, pain, and swelling, Cardiovascular: Negative for chest pain, palpitations, and edema, Respiratory: Negative for shortness of breath, cough, wheezing, and pleuritic chest pain, Abdomen/GI: Negative for abdominal pain, nausea, vomiting, diarrhea, and constipation, Back: Negative for injury and pain, : Negative for injury, bleeding, discharge, and swelling, MS/Extremity: Negative for injury and deformity, Neuro: Negative for headache, weakness, numbness, tingling, and seizure, Psych: Negative for depression, anxiety, suicide ideation, homicidal ideation, and hallucinations, Allergy/Immunology: Negative for hives, rash, and allergies, Endocrine: Negative for neck swelling, polydipsia, polyuria, polyphagia, and marked weight changes, Hematologic/Lymphatic: Negative for swollen nodes, abnormal bleeding, and unusual bruising. 04:46 Skin: Positive for rash, diffusely. Exam: 04:46 Constitutional: This is a well developed, well nourished patient who is awake, alert, hira and in no acute distress. Head/Face: Normocephalic, atraumatic. Eyes: Pupils equal round and reactive to light, extra-ocular motions intact. Lids and lashes normal. Conjunctiva and sclera are non-icteric and not injected. Cornea within normal limits. Periorbital areas with no swelling, redness, or edema. ENT: Nares patent. No nasal discharge, no septal abnormalities noted. Tympanic membranes are normal and external auditory canals are clear. Oropharynx with no redness, swelling, or masses, exudates, or evidence of obstruction, uvula midline. Mucous membranes moist. Neck: Trachea midline, no thyromegaly or masses palpated, and no cervical lymphadenopathy. Supple, full range of motion without nuchal rigidity, or vertebral point tenderness. No Meningismus. Chest/axilla: Normal chest wall appearance and motion. Nontender with no deformity. No lesions are appreciated. Cardiovascular: Regular rate and rhythm with a normal S1 and S2. No gallops, murmurs, or rubs. Normal PMI, no JVD. No pulse deficits. Respiratory: Lungs have equal breath sounds bilaterally, clear to auscultation and percussion. No rales, rhonchi or wheezes noted. No increased work of breathing, no retractions or nasal flaring. Abdomen/GI: Soft, non-tender, with normal bowel sounds. No distension or tympany. No guarding or rebound. No evidence of tenderness throughout. Back: No spinal tenderness. No costovertebral tenderness. Full range of motion. MS/ Extremity: Pulses equal, no cyanosis. Neurovascular intact. Full, normal range of motion. Neuro: Awake and alert, GCS 15, oriented to person, place, time, and situation. Cranial nerves II-XII grossly intact. Motor strength 5/5 in all extremities. Sensory grossly intact. Cerebellar exam normal. Normal gait. Psych: Awake, alert, with orientation to person, place and time. Behavior, mood, and affect are within normal limits. 04:46 Skin: Appearance: Color: normal in color, Temperature: normal temperature, Moisture: normal moisture, petechiae, not noted, ecchymosis, not noted, flushing, not noted, diaphoresis is not appreciated. Vital Signs: 03:54 BP 115 / 68; Pulse 69; Resp 16 S; Temp 98(O); Pulse Ox 100% on R/A; Weight 61.23 kg bb (R); Height 5 ft. 1 in. (154.94 cm) (R); 03:54 Body Mass Index 25.51 (61.23 kg, 154.94 cm) bb MDM: 04:08 Patient medically screened. hira 04:55 Differential diagnosis: allergic reaction. Data reviewed: vital signs, nurses notes. hira Consideration of Admission/Observation Patient was admitted/placed on observation. Escalation of care including admission/observation considered. Test considered but Not performed: Labs: no cbc, comp met. Administered Medications: 04:18 Drug: predniSONE 60 mg Route: PO; aa9 04:18 Drug: Benadryl (diphenhydrAMINE) 25 mg Route: PO; aa9 04:18 Drug: Pepcid (famotidine) 40 mg Route: PO; aa9 Disposition Summary: 09/12/22 04:59 Discharge Ordered Location: Home hira Problem: new hira Symptoms: have improved hira Condition: Stable hira Diagnosis - Urticaria, unspecified hira - Idiopathic urticaria hira - Bipolar disorder, unspecified hira Followup: hira - With: Private Physician - When: 2 - 3 days - Reason: Recheck today's complaints, Continuance of care, Re-evaluation by your physician Discharge Instructions: - Discharge Summary Sheet hira - Hives hira - Rash, Adult hira - Rash, Adult, Eugh-ug-Gepy hira - Hives, Rhsp-pz-Sexe hira - Mixed Bipolar Disorder hira Forms: - Medication Reconciliation Form hira - Thank You Letter hira - Antibiotic Education hira - Prescription Opioid Use hira Prescriptions: - Benadryl 25 mg Oral Capsule - take 1 capsule by ORAL route every 6 hours As needed; 30 tablet; Refills: 0, [facility] Product Selection Permitted - Pepcid 20 mg Oral Tablet - take 1 tablet by ORAL route every 12 hours for 10 days; 20 tablet; Refills: 0, [facility] Product Selection Permitted - Prednisone 20 mg Oral Tablet - take 2 tablets by ORAL route once daily for 5 days; 10 tablet; Refills: 0, [facility] Product Selection Permitted Signatures: Lisandro Judd MD MD cha Ballard, Brenda, RN RN bb Juanita Fuentes, LEONORA RN aa9
--- NOTE | 2022-09-12 04:59 | ER ---
Nurse's Notes [facility] Name: Atiya Castellanos Age: 22 yrs Sex: Female : 2000 Arrival Date: 09/12/2022 Time: 03:35 Bed 16 Private MD: Diagnosis: Urticaria, unspecified;Idiopathic urticaria;Bipolar disorder, unspecified Presentation: 09/12 03:54 Chief complaint: Patient states: she was seen here yesterday for an allergic reaction bb and was given RX for medications but is unable to get them filled and the rash is back. Coronavirus screen: At this time, the client does not indicate any symptoms associated with coronavirus-19. Ebola Screen: No symptoms or risks identified at this time. Initial Sepsis Screen: Does the patient meet any 2 criteria? No. Patient's initial sepsis screen is negative. Does the patient have a suspected source of infection? No. Patient's initial sepsis screen is negative. Risk Assessment: Do you want to hurt yourself or someone else? Patient reports no desire to harm self or others. Onset of symptoms was September 11, 2022. 03:54 Method Of Arrival: Ambulatory bb 03:54 Acuity: CHRIS 5 bb Triage Assessment: 03:59 General: Appears in no apparent distress. uncomfortable, Behavior is calm, cooperative. bb Pain: Denies pain. Neuro: Level of Consciousness is awake, alert, obeys commands, Oriented to person, place, time, situation. Cardiovascular: No deficits noted. Respiratory: Respiratory effort is even, unlabored. GI: No signs and/or symptoms were reported involving the gastrointestinal system. Derm: Rash noted that is itchy, generalized. Musculoskeletal: Circulation, motion, and sensation intact. 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 - Social history:: Smoking status: Patient denies any tobacco usage or history of. - Family history:: not pertinent. Screenin:07 [facility] ED Fall Risk Assessment (Adult) History of falling in the last 3 months, bb including since admission No falls in past 3 months (0 pts). Abuse screen: Denies threats or abuse. Nutritional screening: No deficits noted. Tuberculosis screening: No symptoms or risk factors identified. Assessment: 04:07 Reassessment: No changes from previously documented assessment. see triage assessment. bb Vital Signs: 03:54 BP 115 / 68; Pulse 69; Resp 16 S; Temp 98(O); Pulse Ox 100% on R/A; Weight 61.23 kg bb (R); Height 5 ft. 1 in. (154.94 cm) (R); 03:54 Body Mass Index 25.51 (61.23 kg, 154.94 cm) ED Course: 03:35 Patient arrived in ED. ag3 03:59 Triage completed. bb 03:59 Arm band placed on. bb 04:06 Lisandro Judd MD is Attending Physician. [facility] 04:07 Patient has correct armband on for positive identification. Bed in low position. Call bb light in reach. Side rails up X 1. 05:16 No provider procedures requiring assistance completed. Patient did not have IV access aa9 during this emergency room visit. Administered Medications: 04:18 Drug: predniSONE 60 mg Route: PO; aa9 04:18 Drug: Benadryl (diphenhydrAMINE) 25 mg Route: PO; aa9 04:18 Drug: Pepcid (famotidine) 40 mg Route: PO; aa9 Medication: 04:07 VIS not applicable for this client. bb Outcome: 04:59 Discharge ordered by . [facility] 05:16 Discharged to home ambulatory. aa9 05:16 Condition: stable 05:16 Discharge instructions given to patient, Instructed on discharge instructions, follow up and referral plans. medication usage, Demonstrated understanding of instructions, follow-up care, medications, Prescriptions given X 3. 05:19 Patient left the ED. aa9 Signatures: Lisandro Judd MD MD cha Ballard, Brenda, RN RN Eliane Bell [facility] Juanita Fuentes, RN RN aa9
[2022-09-12 05:25] VITALS: BP 115/68; TEMP 98; O2SAT 100
== END 2022-09-12 05:19 | disposition home or self-care (01) ==
LOC: ER 03:29
DX: L50.1 Idiopathic urticaria (principal); F31.9 Bipolar disorder, unspecified; Z91.011 Allergy to milk products; Z91.018 Allergy to other foods
CPT/HCPCS: J7512

== ENCOUNTER 2022-09-16 18:04 | Emergency (ER) | payer OTHER ==
--- OUTSIDE RECORDS SUMMARY | 2022-09-16 18:10 | XMS REPORT | Continuity of Care Document ---
:2000 Author Organization [facility] t Address [address] [place] [address] Care Team Providers Name Role Phone Declan Fermin DO Attending Clinician Rashid Moses Attending Clinician RASHID CHA Attending Clinician Unavailable Doctor Unassigned, [place] Attending Clinician Unavailable Visit, Qian Nurse Attending Clinician Unavailable Carla Ramos Attending Clinician [phone] CARLA RAJAN Attending Clinician Unavailable Fidelia Billings MD Attending Clinician Faculty, Han Marquez Attending Clinician Unavailable Leandro Neff MD Attending Clinician Ultrasound, Ayden Attending Clinician Unavailable Lab, Qian Attending Clinician Unavailable Fidelia Billings MD Admitting Clinician Payers Payer Name Policy Type Policy Number Effective Date Expiration Date Belinda CURTISS [id number] 2019 HEALTH 00:00:00 Problems Condition Condition Condition [...] (BMI 4-11 ity of 30-39.9) 30-39.9) 00:00: [place] 00 Medical Branch 37 weeks 37 weeks Disease Active 2020-0 Unive rs gestation gestation 4-11 ity of of of 00:00: [place] 00 [facility] Chlamydia Chlamydia Disease Active 2020-0 Overview: Univers infection infection 2-19 Pending ity of during during 00:00: MICHAEL -neg [place] 00 [facility] Gonorrhea Gonorrhea Disease Active 2020-0 Overview: Univers in in 2-19 [place] 00 [place] [facility] Susceptibl Susceptibl Disease Active 2020-0 Overview : Univers e to e to -19 Address ity of varicella var[place]ella 00:[place] (non-immun (non-immun 00 Me dical e), e), Branch currently currently Supervisio Supervisio Disease Active 2020-0 U nivers n of n of 2-18 ity of high-risk high-risk 00:[place] [facility] with with Branch insufficie insufficie nt nt care care Over Over Disease Active 2020-0 Univers weight weight 2-18 ity of 00:00: [place] [facility] Branch Multiparit Multiparit Disease Active 2020-0 U nivers y y 2-18 ity of 00:00: [place] [facility] History of History of Disease Active 2020-0 Overview : Univers bipolar bipolar 2-18 Not on ity of disorder disorder 00:00: meds x1 [place] year Medical Branch History of History of Disease Active 2020-0 Overview : Univers depression depression 2-18 Not on it y of 00:00: meds x1 [place] year Medical Branch History of History of Disease Active 2020-0 Overview : Univers anxiety anxiety 2-18 Not on ity of 00:00: meds x1 [place] year Medical Branch History of History of Disease Active 2020-0 Overview : Univers 2-18 Reports ity of [place] 00 [place] [facility] 31weeks Branch ROR requested History of History of Disease Active 2020-0 U nivers ADHD ADHD 2-18 ity of 00:00: [place] [facility] Family Family Disease Active 2020-0 [...] Comments Source ASSERTION 2019-03-20 University of 00:00:[address] [facility] Exposure to Not sure [place] of SARS-CoV-2 [place] Medical (event) Branch Tobacco use and 2020-01-07 2020-01-07 Never used Universit y of exposure 00:00:00 00:00:[address] [facility] Alcohol intake 2020-01-07 2020-01-07 Ex-drinker University of 00:00:00 00:00:00 (finding) [facility] History SDOH 2019-11-22 2019-11-22 11 University o f Education 00:00:00 00:00:[address] [facility] Tobacco Comment 2013-06-10 2013-06-10 mom smokes Universit y of 00:00:00 00:00:[address] [facility] Sex Assigned At [birth year] Universit y of 00:00:00 00:00:00 [place] [facility] Smoking Status Start Date Stop Date Source Never smoker [facility] Medications Ordered Filled Start Stop Current Ordering Indication Dosage Frequency Signature Comments Components Source Medication Medication Date Date Medication? Clinician (SIG) Name Name etonogestre 2019-2019- No [id number] 68mg Univers l 01-06 ity of (NEXPLANON) 16:00: 14:55 [place] implant 68 00 :00 Medical mg Branch etonogestre 2019-2019- No [id number] 68mg 68 mg, Univers l 01-06 Subdermal, ity of (NEXPLANON) 16:00: 14:55 ONCE NOW, [place] implant 68 00 :00 1 dose, Medica l mg [facility] 01/07/20 at 1100, Routine
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
Use approved by: RETORT OR CONDENSER PRESS OPERATOR lisdexamfet 2020- No 50mg Take 50 mg [...] Subcutaneo ity of vaccine 12:26: 16:35 us, [place] live 12 :00 ONCE-PRIOR Medical (VARIVAX TO [...] at 1912, Routine, Analgesia Recovery 2020-0 Yes [id number] 1{tbl} Take 1 Univers vitamin 4-12 tablet by ity of w/FA tablet 00:00: mouth [place] 00 daily. Medical Branch docusate 2020-0 Yes [id number] 240mg Take 1 U nivers calcium 240 4-12 capsule by it y of mg capsule 00:00: mouth once [place] 00 daily as Medical needed for Branch Constipati on. ferrous 2020-0 Yes [id number] 325mg Take 1 Un dustin sulfate 325 4-12 tablet by ity of mg (65 mg 00:00: mouth 2 [place] iron) 00 (two) Medical tablet times Branch daily. ibuprofen 2020-0 Yes [id number] 600mg Take 1 Univers 600 mg 4-12 tablet by ity of tablet 00:00: mouth [place] 00 every 6 Medical (six) Branch hours as needed (Pain). Take with food or milk. 2019-0 Yes [id number] 1{tbl} Take 1 Univers vitamin 4-12 tablet by ity of w/FA tablet 00:00: mouth [place] 00 daily. Medical Branch docusate 2020-0 Yes [id number] 240mg Take 1 U nivers calcium 240 4-12 capsule by it y of mg capsule 00:00: mouth once [place] 00 daily as Medical needed for Branch Constipati on. ferrous 2020-0 Yes [id number] 325mg Take 1 Un dustin sulfate 325 4-12 tablet by ity of mg (65 mg 00:00: mouth 2 [place] iron) 00 (two) Medical tablet times Branch daily. ibuprofen 2020-0 Yes [id number] 600mg Take 1 Univers 600 mg 4-12 tablet by ity of tablet 00:00: mouth [place] 00 every 6 Medical (six) Branch hours as needed (Pain). Take with food or milk. 2020-0 Yes [id number] 1{tbl} Take 1 Univers vitamin 4-12 tablet by ity of w/FA tablet 00:00: mouth [place] 00 daily. Medical Branch docusate 2020-0 Yes [id number] 240mg Take 1 U nivers calcium 240 4-12 capsule by it y of mg capsule 00:00: mouth once [place] 00 daily as Medical needed for Branch Constipati on. ferrous 2020-0 Yes [id number] 325mg Take 1 Un dustin sulfate 325 4-12 tablet by ity of mg (65 mg 00:00: mouth 2 [place] iron) 00 (two) Medical tablet times Branch daily. ibuprofen 2020-0 Yes [id number] 600mg Take 1 Univers 600 mg 4-12 tablet by ity of tablet 00:00: mouth [place] 00 every 6 Medical (six) Branch hours as needed (Pain). Take with food or milk. 2020-0 Yes [id number] 1{tbl} Take 1 Univers vitamin 4-12 tablet by ity of w/FA tablet 00:00: mouth [place] 00 daily. Medical Branch docusate 2020-0 Yes [id number] 240mg Take 1 U nivers calcium 240 4-12 capsule by it y of mg capsule 00:00: mouth [place] 00 daily as Medical needed for Branch Constipati on. ferrous 2020-0 Yes [id number] 325mg Take 1 Un dustin sulfate 325 4-12 tablet by ity of mg (65 mg 00:00: mouth 2 [place] iron) 00 (two) Medical tablet times Branch daily. ibuprofen 2020-0 Yes [id number] 600mg Take 1 Univers 600 mg 4-12 tablet by ity of tablet 00:00: mouth [place] 00 every 6 Medical (six) Branch hours as needed (Pain). Take with food or milk. 2020-0 Yes [id number] 1{tbl} Take 1 Univers vitamin 4-12 tablet by ity of w/FA tablet 00:00: mouth [place] 00 daily. Medical Branch docusate 2020-0 Yes [id number] 240mg Take 1 U nivers calcium 240 4-12 capsule by it y of mg capsule 00:00: mouth once [place] 00 daily as Medical needed for Branch Constipati on. ferrous 2020-0 Yes [id number] 325mg Take 1 Un dustin sulfate 325 4-12 tablet by ity of mg (65 mg 00:00: mouth 2 [place] iron) 00 (two) Medical tablet times Branch daily. ibuprofen 2020-0 Yes [id number] 600mg Take 1 Univers 600 mg 4-12 tablet by ity of tablet 00:00: mouth [place] 00 every 6 Medical (six) Branch hours as needed (Pain). Take with food or milk. 2020-0 Yes [id number] 1{tbl} Take 1 Univers vitamin 4-12 tablet by ity of w/FA tablet 00:00: mouth [place] 00 daily. Medical Branch docusate 2020-0 Yes [id number] 240mg Take 1 U nivers calcium 240 4-12 capsule by it y of mg capsule 00:00: mouth once [place] 00 daily as Medical needed for Branch Constipati on. ferrous 2020-0 Yes [id number] 325mg Take 1 Un dustin sulfate 325 4-12 tablet by ity of mg (65 mg 00:00: mouth 2 [place] iron) 00 (two) Medical tablet times Branch daily. ibuprofen 2020-0 Yes [id number] 600mg Take 1 Univers 600 mg 4-12 tablet by ity of tablet 00:00: mouth [place] 00 every 6 Medical (six) Branch hours as needed (Pain). Take with food or milk. 2019-0 Yes [id number] 1{tbl} Take 1 Univers vitamin 4-12 tablet by ity of w/FA tablet 00:00: mouth [place] 00 daily. Medical Branch docusate 2019-0 Yes [id number] 240mg Take 1 U nivers calcium 240 4-12 capsule by it y of mg capsule 00:00: mouth once [place] 00 daily as Medical needed for Branch Constipati on. ferrous 2020-0 Yes [id number] 325mg Take 1 Un dustin sulfate 325 4-12 tablet by ity of mg (65 mg 00:00: mouth 2 [place] iron) 00 (two) Medical tablet times Branch daily. ibuprofen 2019-0 Yes [id number] 600mg Take 1 Univers 600 mg 4-12 tablet by ity of tablet 00:00: mouth [place] 00 every 6 Medical (six) Branch hours as needed (Pain). Take with food or milk. HYDROcodone 2019- No [id number] 1{tbl} Take 1 Univers -acetaminop 4-12 04-20 tablet by it y of hen 5-325 00:00: 04:59 mouth [place] mg tablet 00 :00 every 6 Medical (six) Branch hours as needed (for pain) for up to 7 days. Do not exceed 3 grams of acetaminop hen in 24 hours. HYDROcodone 2019- No [id number] 1{tbl} Take 1 Univers -acetaminop 4-12 04-20 [...] Surgical Prophylaxi s
Surgi ashley Prophylaxi s: RETORT OR CONDENSER PRESS OPERATOR
Duration of therapy: within 24 hours of [...] [place] (RIGHT STEP 00 daily. Medica l [facility] VITAMINS) 27 mg iron- 0.8 mg per tablet ferrous 2020-0 Yes 325mg Take 1 Univers sulfate 325 3-02 tablet by ity of mg (65 mg 00:00: mouth [place] iron) 00 daily. Medical tablet Branch 2020- No 1{tbl} Take 1 Univ ers Vit-Iron 3-02 04-12 tablet by ity o f Fumarate-FA 00:00: 00:00 [place] (RIGHT STEP 00 :00 daily. Medica l [facility] VITAMINS) 27 mg iron- 0.8 mg per [...] Therapy: Other (see Comments) azithromyci 2019-2019- No [id number] 1000mg Take 2 Univers n 500 mg -20 tablets by ity of tablet 00:00: 05:59 mouth [place] 00 :00 now for 1 Medical dose. Branch azithromyci 2019- No [id number] 1000mg Take 2 Univers n 500 mg 2-19 02-20 tablets by ity of tablet 00:00: 05:59 mouth once [place] [facility] 00 :00 now for 1 Medical dose. Branch ARIPiprazol 2020-0 Yes 2mg Take 2 mg U nivers e (ABILIFY) 2-18 by mouth ity of 2 mg tablet 19:58: daily. [place] [address] Medical Branch lisdexamfet 2019-0 Yes 50mg Take 50 mg Univers amine 2-18 by mouth ity of (VYVANSE) 19:58: every [place] 50 mg 26 morning. Medical capsule Branch ARIPiprazol 2020-0 Yes 2mg Take 2 mg U nivers e (ABILIFY) 2-18 by mouth ity of 2 mg tablet 19:58: daily. [place] [address] Medical Branch lisdexamfet 2020-0 Yes 50mg Take 50 mg Univers amine 2-18 by mouth ity of (VYVANSE) 19:58: every [place] 50 mg 26 morning. Medical capsule Branch ARIPiprazol 2020-0 Yes 2mg Take 2 mg U nivers e (ABILIFY) 2-18 by mouth ity of 2 mg tablet 19:58: daily. [place] [address] Medical Branch lisdexamfet 2019-0 Yes 50mg Take 50 mg Univers amine 2-18 by mouth ity of (VYVANSE) 19:58: every [place] 50 mg 26 morning. Medical capsule Branch ARIPiprazol 2020-0 Yes 2mg Take 2 mg U nivers e (ABILIFY) 2-18 by mouth ity of 2 mg tablet 19:58: daily. [place] [address] Medical Branch lisdexamfet 2020-0 Yes 50mg Take 50 mg Univers amine 2-18 by mouth ity of (VYVANSE) 19:58: every [place] 50 mg 26 morning. Medical capsule Branch ARIPiprazol 2020-0 Yes 2mg Take 2 mg U nivers e (ABILIFY) 2-18 by mouth ity of 2 mg tablet 19:58: daily. [address] Branch lisdexamfet 2020-0 Yes 50mg Take 50 mg Univers amine 2-18 by mouth ity of (VYVANSE) 19:58: every [place] 50 mg 26 morning. Medical capsule Branch ARIPiprazol 2020-0 Yes 2mg Take 2 mg U nivers e (ABILIFY) 2-18 by mouth ity of 2 mg tablet 19:58: daily. [place] [address] Medical Branch lisdexamfet 2020-0 Yes 50mg Take 50 mg Univers amine 2-18 by mouth ity of (VYVANSE) 19:58: every [place] 50 mg 26 morning. Medical capsule Branch ARIPiprazol 2020-0 Yes 2mg Take 2 mg U nivers e (ABILIFY) 2-18 by mouth ity of 2 mg tablet 19:58: daily. [place] [address] Medical Branch lisdexamfet 2020-0 Yes 50mg Take 50 mg Univers amine 2-18 by mouth ity of (VYVANSE) 19:58: every [place] 50 mg 26 morning. Medical capsule Branch ARIPiprazol 2020-0 Yes 2mg Take 2 mg U nivers e (ABILIFY) 2-18 by mouth ity of 2 mg tablet 19:58: daily. [address] Branch lisdexamfet 2020-0 Yes 50mg Take 50 mg Univers amine 2-18 by mouth ity of (VYVANSE) 19:58: every [place] 50 mg 26 morning. Medical capsule Branch ARIPiprazol 2020-0 Yes 2mg Take 2 mg U nivers e (ABILIFY) 2-18 by mouth ity of 2 mg tablet 19:58: daily. [address] lisdexamfet 2020-0 Yes 50mg Take 50 mg Univers amine 2-18 by mouth ity of (VYVANSE) 19:58: every [place] 50 mg 26 morning. Medical capsule Branch ARIPiprazol 2020-0 Yes 2mg Take 2 mg U nivers e (ABILIFY) 2-18 by mouth ity of 2 mg tablet 19:58: daily. [address] Branch lisdexamfet 2020-0 Yes 50mg Take [...] ity of 2 mg tablet 19:58: daily. [address] Branch lisdexamfet 2020-0 Yes 50mg Take 50 mg Univers amine 2-18 by mouth ity of (VYVANSE) 19:58: every [place] 50 mg 26 morning. Medical capsule Branch ARIPiprazol 2020-0 Yes 2mg Take 2 mg U nivers e (ABILIFY) 2-18 by mouth ity of 2 mg tablet 19:58: daily. [place] [address] Medical Branch lisdexamfet 2020-0 Yes 50mg Take 50 mg Univers amine 2-18 by mouth ity of (VYVANSE) 19:58: every [place] 50 mg 26 morning. Medical capsule Branch ARIPiprazol 2020-0 Yes 2mg Take 2 mg U nivers e (ABILIFY) 2-18 by mouth ity of 2 mg tablet 19:58: daily. [address] Branch lisdexamfet 2019-0 Yes 50mg Take 50 mg Univers amine 2-18 by mouth ity of (VYVANSE) 19:58: every [place] 50 mg 26 morning. Medical capsule Branch ARIPiprazol 2020-0 Yes 2mg Take 2 mg U nivers e (ABILIFY) 2-18 by mouth ity of 2 mg tablet 19:58: daily. [place] [address] Medical Branch lisdexamfet 2020-0 Yes 50mg Take 50 mg Univers amine 2-18 by mouth ity of (VYVANSE) 19:58: every [place] 50 mg 26 morning. Medical capsule Branch ARIPiprazol 2020-0 Yes 2mg Take 2 mg U nivers e (ABILIFY) 2-18 by mouth ity of 2 mg tablet 19:58: daily. [address] Branch lisdexamfet 2020-0 Yes 50mg Take 50 mg Univers amine 2-18 by mouth ity of (VYVANSE) 19:58: every [place] 50 mg 26 morning. Medical capsule Branch ARIPiprazol 2020-0 Yes 2mg Take 2 mg U nivers e (ABILIFY) 2-18 by mouth ity of 2 mg tablet 19:58: daily. [address] Branch lisdexamfet 2019-0 Yes 50mg Take 50 mg Univers amine 2-18 by mouth ity of (VYVANSE) 19:58: every [place] 50 mg 26 morning. Medical capsule Branch ARIPiprazol 2019-0 Yes 2mg Take 2 mg U nivers e (ABILIFY) 2-18 by mouth ity of 2 mg tablet 19:58: daily. [address] Branch lisdexamfet 2019-0 Yes 50mg Take 50 mg Univers amine 2-18 by mouth ity of (VYVANSE) 19:58: every [place] 50 mg 26 morning. Medical capsule Branch ARIPiprazol 2019-0 Yes 2mg Take 2 mg U nivers e (ABILIFY) 2-18 by mouth ity of 2 mg tablet 19:58: daily. [address] Branch lisdexamfet 2019-0 Yes 50mg Take 50 mg Univers amine 2-18 by mouth ity of (VYVANSE) 19:58: every [place] 50 mg 26 morning. Medical capsule Branch ARIPiprazol 2019-0 Yes 2mg Take 2 mg U nivers e (ABILIFY) 2-18 by mouth ity of 2 mg tablet 19:58: daily. [address] lisdexamfet 2019-0 Yes 50mg Take 50 [...] ity of 2 mg tablet 14:18: daily. [facility] Somatropin Yes [id number] 3mg inject 3 Univers (NORDITROPI 5-05 mg under ity of N FLEXPRO) 00:00: the skin [place] 15 mg/1.5 00 daily. Medical mL (10 Branch mg/mL) PnIj Somatropin 2014-0 Yes [id number] 3mg inject 3 Univers (NORDITROPI 5-05 mg under ity of N FLEXPRO) 00:00: the [place] 15 mg/1.5 00 daily. Medical mL (10 Branch mg/mL) PnIj Somatropin 2014-0 Yes [id number] 3mg inject 3 Univers (NORDITROPI 5-05 mg under ity of N FLEXPRO) 00:00: the [place] 15 mg/1.5 00 daily. Medical mL (10 Branch mg/mL) PnIj Somatropin 2014- Yes [id number] 3mg inject 3 Univers (NORDITROPI 5-05 mg under ity of N FLEXPRO) 00:00: the [place] 15 mg/1.5 00 daily. Medical mL (10 Branch mg/mL) PnIj Somatropin 2014- Yes [id number] 3mg inject 3 Univers (NORDITROPI 5-05 mg under ity of N FLEXPRO) 00:00: the [place] 15 mg/1.5 00 daily. Medical mL (10 Branch mg/mL) PnIj Somatropin 2014- Yes [id number] 3mg inject 3 Univers (NORDITROPI 5-05 mg under ity of N FLEXPRO) 00:00: the [place] 15 mg/1.5 00 daily. Medical mL (10 Branch mg/mL) PnIj Somatropin 2014- Yes [id number] 3mg inject 3 Univers (NORDITROPI 5-05 mg under ity of N FLEXPRO) 00:00: the [place] 15 mg/1.5 00 daily. Medical mL (10 Branch mg/mL) PnIj Somatropin 2014-0 Yes [id number] 3mg inject 3 Univers (NORDITROPI 5-05 mg under ity of N FLEXPRO) 00:00: the [place] 15 mg/1.5 00 daily. Medical mL (10 Branch mg/mL) PnIj Somatropin 2014-0 Yes [id number] 3mg inject 3 Univers (NORDITROPI 5-05 mg under ity of N FLEXPRO) 00:00: the [place] 15 mg/1.5 00 daily. Medical mL (10 Branch mg/mL) PnIj Somatropin 2014- Yes [id number] 3mg inject 3 Univers (NORDITROPI 5-05 mg under ity of N FLEXPRO) 00:00: the [place] 15 mg/1.5 00 daily. Medical mL (10 Branch mg/mL) PnIj Somatropin 2014-0 Yes [id number] 3mg inject 3 Univers (NORDITROPI 5-05 mg under ity of N FLEXPRO) 00:00: the [place] 15 mg/1.5 00 daily. Medical mL (10 Branch mg/mL) PnIj Somatropin 2014-0 Yes [id number] 3mg inject 3 Univers (NORDITROPI 5-05 mg under ity of N FLEXPRO) 00:00: the [place] 15 mg/1.5 00 daily. Medical mL (10 Branch mg/mL) PnIj Somatropin 2014-0 Yes [id number] 3mg inject 3 Univers (NORDITROPI 5-05 mg under ity of N FLEXPRO) 00:00: the [place] 15 mg/1.5 00 daily. Medical mL (10 Branch mg/mL) PnIj Somatropin 2014-0 Yes [id number] 3mg inject 3 Univers (NORDITROPI 5-05 mg under ity of N FLEXPRO) 00:00: the [place] 15 mg/1.5 00 daily. Medical mL (10 Branch mg/mL) PnIj Somatropin 2014-0 Yes [id number] 3mg inject 3 Univers (NORDITROPI 5-05 mg under ity of N FLEXPRO) 00:00: the [place] 15 mg/1.5 00 daily. Medical mL (10 Branch mg/mL) PnIj Somatropin 2014-0 Yes [id number] 3mg inject 3 Univers (NORDITROPI 5-05 mg under ity of N FLEXPRO) 00:00: the [place] 15 mg/1.5 00 daily. Medical mL (10 Branch mg/mL) PnIj Somatropin 2014-0 Yes [id number] 3mg inject 3 Univers (NORDITROPI 5-05 mg under ity of N FLEXPRO) 00:00: the [place] 15 mg/1.5 00 daily. Medical mL (10 Branch mg/mL) PnIj Somatropin 2014-0 Yes [id number] 3mg inject 3 Univers (NORDITROPI 5-05 mg under ity of N FLEXPRO) 00:00: the [place] 15 mg/1.5 00 daily. Medical mL (10 Branch mg/mL) PnIj Somatropin Yes [id number] 3mg inject 3 Univers (NORDITROPI 5-05 mg under ity of N FLEXPRO) 00:00: the [place] 15 mg/1.5 00 daily. Medical mL (10 Branch mg/mL) PnIj Somatropin Yes [id number] 3mg inject 3 Univers (NORDITROPI 5-05 mg under ity of N FLEXPRO) 00:00: the [place] 15 mg/1.5 00 daily. Medical mL (10 Branch mg/mL) PnIj Somatropin Yes [id number] 3mg inject 3 Univers (NORDITROPI 5-05 mg under ity of N FLEXPRO) 00:00: the [place] 15 mg/1.5 00 daily. Medical mL (10 Branch mg/mL) PnIj Somatropin 2020- No [id number] 3mg inject 3 Univers (NORDITROPI 5-05 04-12 [...] Immunizations Ordered Filled Immunization Date Status Comments [facility] e Immunization Name Name Varicella 2019-11-24 Completed [...] Branch Tdap 2019-09-30 Completed University of 00:00:[address] [facility] Influenza Virus 2019-09-30 Completed Universit y of Vaccine Quad .5 mL 00:00:00 [facility] IM 6+ MO Branch Tdap 2019-09-30 Completed University of 00:00:[address] [facility] Influenza Virus 2019-09-30 Completed Universit y of Vaccine Quad .5 mL 00:00:00 [facility] 6+ MO [place] Tdap 2019-09-30 Completed University of 00:00:[address] [facility] Influenza Virus 2019-09-30 Completed Universit y of Vaccine Quad .5 mL 00:00:00 [facility] 6+ MO Branch Tdap 2019-09-30 Completed University of 00:00:[address] [facility] Influenza Virus 2019-09-30 Completed Universit y of Vaccine Quad .5 mL 00:00:00 [place] [facility] 6+ MO Branch Tdap 2019-09-30 Completed University of 00:00:[address] [facility] Influenza Virus 2019-09-30 Completed Universit y of Vaccine Quad .5 mL 00:00:00 [place] [facility] 6+ MO Branch Tdap 2019-09-30 Completed University of 00:00:[address] [facility] Influenza Virus 2019-09-30 Completed Universit y of Vaccine Quad .5 mL 00:00:00 [place] [facility] 6+ MO Branch Tdap 2019-09-30 Completed University of 00:00:[address] [facility] Influenza Virus 2019-09-30 Completed Universit y of Vaccine [place] .5 mL 00:00:00 [facility] 6+ MO Branch Tdap 2019-09-30 Completed University of 00:00:[address] [facility] Influenza Virus 2019-09-30 Completed Universit y of Vaccine Quad .5 mL 00:00:00 [facility] 6+ MO Branch Tdap 2019-09-30 Completed University of 00:00:[address] [facility] Influenza Virus 2019-09-30 Completed Universit y of Vaccine Quad .5 mL 00:00:00 [facility] 6+ MO Branch Tdap 2019-09-30 Completed University of 00:00:[address] [facility] Influenza Virus 2019-09-30 Completed Universit y of Vaccine Quad .5 mL 00:00:00 [facility] 6+ MO Branch Tdap 2019-09-30 Completed University of 00:00:[address] [facility] Influenza Virus 2019-09-30 Completed Universit y of Vaccine Quad .5 mL 00:00:00 [facility] 6+ MO Branch Tdap 2019-09-30 Completed University of 00:00:[address] [facility] Influenza Virus 2019-09-30 Completed Universit y of Vaccine Quad .5 mL 00:00:00 [place] [facility] 6+ MO Branch Tdap 2019-09-30 Completed University of 00:00:[address] [facility] Influenza Virus 2019-09-30 Completed Universit y of Vaccine Quad .5 mL 00:00:00 [place] [facility] 6+ MO Branch Tdap 2019-09-30 Completed University of 00:00:[address] [facility] Influenza Virus 2019-09-30 Completed Universit y of Vaccine Quad .5 mL 00:00:00 [place] [facility] 6+ MO Branch Tdap 2019-09-30 Completed University of 00:00:[address] [facility] Influenza Virus 2019-09-30 Completed Universit y of Vaccine Quad .5 mL 00:00:00 [place] [facility] 6+ MO Branch Tdap 2019-09-30 Completed University of 00:00:[address] [facility] Influenza Virus 2019-09-30 Completed Universit y of Vaccine Quad .5 mL 00:00:00 [facility] 6+ MO Branch Tdap 2019-09-30 Completed University of 00:00:[address] [facility] Influenza Virus 2019-09-30 Completed Universit y of Vaccine Quad .5 mL 00:00:00 [facility] 6+ MO Branch Tdap 2019-09-30 Completed University of 00:00:[address] [facility] Influenza Virus 2019-09-30 Completed Universit y of Vaccine Quad .5 mL 00:00:00 [facility] 6+ MO Branch Tdap 2019-09-30 Completed University of 00:00:[address] [facility] Influenza Virus 2019-09-30 Completed Universit y of Vaccine Quad .5 mL 00:00:00 [facility] 6+ MO Branch Tdap 2019-09-30 Completed University of 00:00:[address] [facility] Influenza Virus 2019-09-30 Completed Universit y of Vaccine Quad .5 mL 00:00:00 [facility] 6+ MO Branch Tdap 2019-09-30 Completed University of 00:00:[address] [facility] Influenza Virus 2019-09-30 Completed Universit y of Vaccine [facility] .5 mL 00:00:00 [facility] 6+ MO Branch Tdap 2019-09-30 Completed University of 00:00:[address] [facility] Influenza Virus 2019-09-30 Completed Universit y of Vaccine [facility] .5 mL 00:00:00 [facility] 6+ MO Branch TDAP 2019-09-30 Completed University of 00:00:[address] [facility] Influenza Virus 2019-09-30 Completed Universit y of [facility]ine [facility] .5 mL 00:00:00 [facility] 6+ MO Branch Tdap 2019-09-30 Completed University of 00:00:[address] [facility] Influenza Virus 2019-09-30 Completed Universit y of Vaccine [facility] .5 mL 00:00:00 [facility] 6+ MO Branch Tdap 2019-09-30 Completed University of 00:00:[address] [facility] Influenza Virus 2019-09-30 Completed Universit y of Vaccine Quad .5 mL 00:00:00 [facility] 6+ MO Branch Tdap 2019-09-30 Completed University 00:00:[address] [facility] Influenza Virus 2019-09-30 Completed Universit y of Vaccine Quad .5 mL 00:00:00 [facility] 6+ MO Branch Tdap 2019-09-30 Completed University 00:00:[address] [facility] Vital Signs Vital Name Observation Time Observation Value Comments Source Systolic blood 2020-01-07 14:30:00 108 mm[Hg] Univer sity of pressure [facility] Diastolic blood 2020-01-07 14:30:00 67 mm[Hg] Unive rsity of pressure [facility] Heart rate 2020-01-07 14:30:00 66 /min Universi ty of [facility] Body temperature 2020-01-07 14:30:00 36.56 Akua Univ ersity of [facility] Respiratory rate 2020-01-07 14:30:00 16 /min Univ ersity of [facility] Body height 2020-01-07 14:30:00 152.4 cm Universi ty of [facility] Body weight 2020-01-07 14:30:00 68.55 kg Universi ty of [facility] BMI 2020-01-07 14:30:00 29.51 kg/m2 Universi ty of [facility] Systolic blood 2019-11-28 20:21:00 112 mm[Hg] Univer sity of pressure [facility] Diastolic blood 2019-11-28 20:21:00 77 mm[Hg] Unive rsity of pressure [facility] Heart rate 2019-11-28 20:21:00 83 /min Universi ty of [facility] Body temperature 2019-11-28 20:21:00 36.56 Akua Univ ersity of [facility] Respiratory rate 2019-11-28 20:21:00 16 /min Univ ersity of [facility] Body height 2019-11-28 20:21:00 152.4 cm Universi ty of [facility] Body weight 2019-11-28 20:21:00 70.081 kg Universi ty of [facility] BMI 2019-11-28 20:21:00 30.17 kg/m2 Universi ty of [facility] Systolic blood 2019-11-28 20:21:00 112 mm[Hg] Univer sity of pressure [facility] Diastolic blood 2019-11-28 20:21:00 77 mm[Hg] Unive rsity of pressure [facility] Heart rate 2019-11-28 20:21:00 83 /min Universi ty of [facility] Body temperature 2019-11-28 20:21:00 36.56 [place]ua Univ ersity of [facility] Respiratory rate 2019-11-28 20:21:00 16 /min Univ ersity of [facility] Body height 2019-11-28 20:21:00 152.4 cm Universi ty of [facility] Body weight 2019-11-28 20:21:00 70.081 [...] 2019-11-24 12:57:00 18 /min Univ ersity of [facility] Oxygen saturation in 2019-11-24 12:57:00 100 /min University Arterial blood by [facility] Pulse oximetry Branch Body height 2019-11-22 17:18:00 152.4 cm Universi ty of [facility] Body weight 2019-11-22 17:18:00 72.122 kg Universi ty of [facility] BMI 2019-11-22 17:18:00 31.05 kg/m2 [...] 12:57:00 100 /min University Arterial blood by [facility] Pulse oximetry Branch Body height 2019-11-22 17:18:00 152.4 cm Universi ty of [facility] [place] Body weight 2019-11-22 17:18:00 72.122 kg Universi ty of [facility] BMI 2019-11-22 17:18:00 31.05 kg/m2 Universi ty of [facility] Systolic blood 2019-11-18 13:42:00 124 mm[Hg] Univer sity of pressure [facility] Diastolic blood 2019-11-18 13:42:00 70 mm[Hg] Unive rsity of pressure [facility] Heart rate 2019-11-18 13:42:00 79 /min Universi ty of [facility] Body temperature 2019-11-18 13:42:00 36.17 [place] Univ ersity of [facility] Respiratory rate 2019-11-18 13:42:00 16 /min Univ [...] 13:42:00 124 mm[Hg] Univer sity of pressure [facility] Diastolic blood 2019-11-18 13:42:00 70 mm[Hg] Unive rsity of pressure [facility] Heart rate 2019-11-18 13:42:00 79 /min Universi ty of [facility] Body temperature 2019-11-18 13:42:00 36.17 Akua Univ ersity of [facility] Respiratory rate 2019-11-18 13:42:00 16 /min Univ ersity of [facility] Body height 2019-11-18 13:42:00 152.4 cm Universi ty of [facility] Body weight 2019-11-18 13:42:00 73.057 kg Universi ty of [facility] BMI 2019-11-18 13:42:00 31.46 kg/m2 Universi ty of [facility] Systolic blood 2019-11-11 13:57:00 118 mm[Hg] Univer sity of pressure [facility] Diastolic blood 2019-11-11 13:57:00 69 mm[Hg] Unive rsity of pressure [facility] Heart rate 2019-11-11 13:57:00 82 /min Universi ty of [facility] Body temperature 2019-11-11 13:57:00 36.33 [place]ua Univ ersity of [facility] Respiratory rate 2019-11-11 13:57:00 16 /min Univ ersity of [facility] Body height 2019-11-11 13:57:00 152.4 cm Universi ty of [facility] Body weight 2019-11-11 13:57:00 71.697 kg Universi ty of [facility] BMI 2019-11-11 13:57:00 30.87 kg/m2 Universi ty of [facility] Systolic blood 2019-11-11 13:57:00 118 mm[Hg] Univer sity of pressure [facility] Diastolic blood 2019-11-11 13:57:00 69 mm[Hg] Unive rsity of pressure [facility] Heart rate 2019-11-11 13:57:00 82 /min Universi ty of [facility] Body temperature 2019-11-11 13:57:00 36.33 [place]ua Univ ersity of [facility] Respiratory rate 2019-11-11 13:57:00 16 /min Univ ersity of [facility] Body height 2019-11-11 13:57:00 152.4 cm Universi ty of [facility] Body weight 2019-11-11 13:57:00 71.697 kg Universi ty of [facility] BMI 2019-11-11 13:57:00 30.87 kg/m2 Universi ty of [facility] Systolic blood 2019-10-27 15:32:00 114 mm[Hg] Univer sity of pressure [facility] Diastolic blood 2019-10-27 15:32:00 66 mm[Hg] Unive rsity of pressure [facility] Heart rate 2019-10-27 15:32:00 83 /min Universi ty of [facility] Body temperature 2019-10-27 15:32:00 36.89 Akua Univ ersity of [facility] Respiratory rate 2019-10-27 15:32:00 16 /min Univ ersity of [facility] Body height 2019-10-27 15:32:00 152.4 cm Universi ty of [facility] Body weight 2019-10-27 15:32:00 70.308 kg Universi ty of [facility] BMI 2019-10-27 15:32:00 30.27 kg/m2 Universi ty of [facility] Systolic blood 2019-10-13 15:00:00 116 mm[Hg] Univer sity of pressure [facility] Diastolic blood 2019-10-13 15:00:00 67 mm[Hg] Unive rsity of pressure [facility] Heart rate 2019-10-13 15:00:00 84 /min Universi ty of [facility] Body temperature 2019-10-13 15:00:00 36.39 Akua Univ ersity of [facility] Respiratory rate 2019-10-13 15:00:00 16 /min Univ ersity of [facility] Body height 2019-10-13 15:00:00 152.4 cm Universi ty of [facility] Body weight 2019-10-13 15:00:00 69.31 kg Universi ty of [facility] BMI 2019-10-13 15:00:00 29.84 kg/m2 Universi ty of [facility] Systolic blood 2019-10-02 15:13:00 128 mm[Hg] Univer sity of pressure [facility] Diastolic blood 2019-10-02 15:13:00 71 mm[Hg] Unive rsity of pressure [facility] Heart rate 2019-10-02 15:13:00 81 /min Universi ty of [facility] Body temperature 2019-10-02 15:13:00 36.22 Akua Univ ersity of [facility] Respiratory rate 2019-10-02 15:13:00 16 /min Univ ersity of [facility] Body height 2019-10-02 15:13:00 152.4 cm Universi ty of [facility] Body weight 2019-10-02 15:13:00 67.586 kg Universi ty of [facility] BMI 2019-10-02 15:13:00 29.10 kg/m2 Universi ty of [facility] Systolic blood 2019-09-30 19:43:00 113 mm[Hg] Univer sity of pressure [facility] Diastolic blood 2019-09-30 19:43:00 67 mm[Hg] Unive rsity of pressure [facility] Heart rate 2019-09-30 19:43:00 91 /min [facility] Body temperature 2019-09-30 19:43:00 36.22 Akua [facility] Respiratory rate 2019-09-30 19:43:00 16 /min [facility] Body height 2019-09-30 19:43:00 152.4 cm [facility] Body weight 2019-09-30 19:43:00 67.189 kg [facility] BMI 2019-09-30 19:43:00 28.93 kg/m2 [facility] Procedures Procedure Date / Time Performing Clinician Source Performed POCT TEST 2020-01-07 14:33:00 Rashid Cha [facility] CONSENT FOR 2020-01-07 05:01:00 Doctor Unassigned, No [facility] CONTRACEPTION Name [facility] CBC WITH DIFFERENTIAL 2019-11-23 09:13:00 Reynold Jones [facility] ARTERIAL CORD GAS 2019-11-22 23:50:[address] [facility] VENOUS CORD GAS 2019-11-22 23:49:00 [facility] SECTION 2019-11-22 23:00:00 Fidelia Billings [facility] HEPATITIS B SURFACE 2019-11-22 20:42:00 [facility] ANTIGEN [facility] GALV ONLY - SYPHILIS 2019-11-22 20:42:00 [facility] IGG/IGM [facility] HB ABO GROUPING 2019-11-22 20:02:00 [facility] RHO (D) IMMUNE GLOBULIN 2019-11-22 20:02:00 Reynold Jones [facility] CORONAVIRUS COVID-19 2019-11-22 17:09:00 [facility] POCT URINALYSIS 2019-11-18 13:49:00 Carla Rajan [facility] POCT URINALYSIS 2019-11-11 14:00:00 Carla Rajan [facility] POCT URINALYSIS 2019-10-27 17:09:00 Carla Rajan [facility] AUTHORIZATION TO RELEASE 2019-10-09 06:01:00 Doctor Unassigned, No [facility] PHI TO [facility] TDAP VACCINE, >11 YRS, 2019-09-30 20:39:21 Carla Rajan [facility] FLU VACC ([phone]), 6+ 2019-09-30 20:22:55 Carla Rajan [facility] MONTHS, IM, QUAD [facility] POCT URINALYSIS W/O 2019-09-30 19:35:00 Carla Rajan Uni versity [facility] SPECIFIC GRAVITY [facility] POCT TEST 2019-09-30 19:34:[address] [facility] ASS[facility] BENEFITS 2019-09-30 19:11:56 Doctor Unassigned, No [facility] Encounters Start End Encounter Admission Attending Care Care Encounter Source Date/Time Date/Time Type Type Clinicians Facility Department ID 2021-06-09 Outpatient [facility] [id number] Univers 17:44:35 ity [facility] 2020-11-02 2020-11-02 Patient Zander HIJUAN [id number] Univers 00:00:00 00:00:00 Outreach Declan PRIMARY 350.1.13.10 i ty of [facility] 4[place]2.7.2.686 [place] [id number] [address] 2020-01-07 2020-01-07 Office Starla [facility] [id number] Univers 09:23:30 10:10:21 Visit Rashid Kidd RETORT OR CONDENSER PRESS OPERATOR 350.1.13.10 ity [facility] 4.2.7.2.686 Juan as MATERNAL [id number] Med ical & CHILD [address] [place] [address] 2020-01-07 2020-01-07 Outpatient R STARLA [facility] [id number] Univers 09:00:00 09:00:00 RASHID gaoy o f [facility] 2020-01-07 2020-01-07 Orders Doctor ESTUARDO 1.2.840.114 [id number] Univers 00:00:00 00:00:00 Only Unassigned, LUKE 350.1.13.10 ity of [place] [facility] 4.2.7.2.686 Juan as [id number] [address] 2019-12-16 2019-12-16 Outpatient R CHA [facility] [id number] Univers 09:15:00 09:15:00 RASHID christie o f [facility] 2019-12-16 2019-12-16 [facility] 1.2.840.114 [id number] Univers 07:34:01 09:03:14 ne Visit Rashid R RETORT OR CONDENSER PRESS OPERATOR 350.1.13.10 ity of [facility] 4.2.7.2.686 Juan as MATERNAL [id number] [facility] ical & CHILD [address] [place] [address] 2019-12-16 2019-12-16 [facility] 1.2.840.114 [id number] 07:34:01 09:03:14 ne Visit Rashid Bernabe RETORT OR CONDENSER PRESS OPERATOR 350.1.13.10 [facility] 4.2.7.2.686 MATERNAL [phone] & CHILD [address] [place] [address] 2019-11-28 2019-11-28 Nurse Visit, Qian Nurse [facility] 1.2 .840.114 [id number] Univers 14:57:15 15:27:42 Visit Carla Rajan RETORT OR CONDENSER PRESS OPERATOR 350.1.13. 10 ity of [facility] 4.2.7.2.686 Juan as MATERNAL [id number] [facility] ical & CHILD [address] [place] [address] 2019-11-28 2019-11-28 Nurse Visit, [facility] 1.2.840.114 [id number] 14:57:15 15:27:42 Visit Qian RETORT OR CONDENSER PRESS OPERATOR 350.1.13.10 Nurse [facility] 4.2.7.2.686 MATERNAL [id number] & CHILD [address] [place] [address] 2019-11-28 2019-11-28 Outpatient R SATINDER [facility] [id number] Univers 15:00:00 15:00:[address] [facility] 2019-11-25 2019-11-25 Outpatient R AKINSIPE, [facility] [id number] Univers 09:30:00 09:30:00 CARLA gaoy o f [facility] 2019-11-25 2019-11-25 Outpatient R AKINSIPE, [facility] [id number] Univers 09:15:00 09:15:00 CARLA christie o [facility] 2019-11-22 2019-11-24 [facility] [id number] Univers 11:49:00 12:16:00 Encounter Fidelia [place] 350.1.13.10 ity of HOSPITAL 4.2.7.2.686 Juan as [id number] [address] 2019-11-22 2019-11-24 [facility] [id number] 11:49:00 12:16:00 Encounter Fidelia [place] 350.1.13.10 [facility] 4.2.7.2.686 [id number] [facility] 2019-11-18 2019-11-18 Routine Akinsipe, [facility] [id number] Univers 08:34:45 08:55:27 Carla C RETORT OR CONDENSER PRESS OPERATOR 350.1.13.10 ity of Visit REGIONAL 4.2.7.2.686 Juan as MATERNAL [id number] Med ical & CHILD [address] [place] [address] 2019-11-18 2019-11-18 Routine Akinsipe, [facility] [id number] 08:34:45 08:55:27 Carla C RETORT OR CONDENSER PRESS OPERATOR 350.1.13.10 Visit REGIONAL 4.2.7.2.686 MATERNAL [id number] & CHILD [address] [place] [address] 2019-11-18 2019-11-18 Outpatient R AKINSIPE, [facility] [id number] Univers 08:45:00 08:45:00 CARLA gaoy o f [facility] 2019-11-11 2019-11-11 Routine Akinsipe, [facility] [id number] Univers 08:49:21 09:26:07 Carla C RETORT OR CONDENSER PRESS OPERATOR 350.1.13.10 ity of Visit REGIONAL 4.2.7.2.686 Juan as MATERNAL [id number] [facility] & CHILD [address] [place] [address] 2019-11-11 2019-11-11 Routine [facility] [id number] 08:49:21 09:26:07 Carla C RETORT OR CONDENSER PRESS OPERATOR 350.1.13.10 Visit REGIONAL 4.2.7.2.686 MATERNAL [id number] & CHILD [address] [place] [address] 2019-11-11 2019-11-11 Outpatient R UMMSHANT, [facility] [id number] Univers 09:00:00 09:00:00 CARLA de leon oscar [facility] 2019-10-27 2019-10-27 Routine [facility] [id number] Univers 09:42:46 12:09:33 Carla Curt RETORT OR CONDENSER PRESS OPERATOR 350.1.13.10 ity of Visit [facility] 4.2.7.2.686 Juan as MATERNAL [id number] [facility] & CHILD [address] [place] [address] 2019-10-27 2019-10-27 Outpatient R UMMSHANT, [facility] [id number] Univers 09:30:00 09:30:00 CARLA de leon oscar [facility] 2019-10-13 2019-10-13 Routine Faculty, Han [facility] 1.2 .840.114 [id number] Univers 08:47:13 11:29:01 Leandro Neff RETORT OR CONDENSER PRESS OPERATOR 350.1.13.10 ity of Visit [facility] 4.2.7.2.686 Juan as MATERNAL [id number] [facility] & CHILD [address] [place] [address] 2019-10-13 2019-10-13 Outpatient R [facility] [id number] Univers 09:00:00 09:00:[address] [facility] 2019-10-09 2019-10-09 Orders Doctor MARTE 1.2.840.114 [id number] Univers 00:00:00 00:00:00 Only Unassigned, LUKE 350.1.13.10 ity of [place] [facility] 4.2.7.2.686 Juan as [id number] [facility] [address] [place] 2019-10-02 2019-10-02 Nurse Visit, Qian Nurse [facility] 1.2 .840.114 [id number] Univers 09:02:47 09:32:54 Visit Carla Rajan C RETORT OR CONDENSER PRESS OPERATOR 350.1.13. 10 ity of REGIONAL 4.2.7.2.686 Juan as MATERNAL [id number] [facility] ical & CHILD [address] [place] [address] 2019-10-01 2019-10-01 Manufacturing Plant Manager Ultrasound, Ayden [facility] 1.2 .840.114 [id number] Univers 09:01:49 10:01:49 Visit Carla Rajan C RETORT OR CONDENSER PRESS OPERATOR 350.1.13. 10 ity of REGIONAL 4.2.7.2.686 Juan as MATERNAL [id number] [facility] ical & CHILD [address] [facility] 2019-10-01 2019-10-01 Manufacturing Plant Manager Lab, Qian [place] 1.2.840. 114 [id number] Univers 08:36:33 08:41:17 Visit Carla Rajan Curt RETORT OR CONDENSER PRESS OPERATOR 350.1.13. 10 ity of REGIONAL 4.2.7.2.686 Juan as MATERNAL [id number] [facility] ical & CHILD [address] [place] [address] 2019-10-01 2019-10-01 Abstract Satinder HIJUAN 1.2.840.114 [id number] Univers 00:00:00 00:00:00 Carla C RETORT OR CONDENSER PRESS OPERATOR 350.1.13.10 ity of REGIONAL 4.2.7.2.686 Juan as MATERNAL [id number] [facility] ical & CHILD [address] [place] [address] 2019-10-01 2019-10-01 Telephone Satinder [facility] 1.2.840.114 [id number] Univers 00:00:00 00:00:00 Carla C RETORT OR CONDENSER PRESS OPERATOR 350.1.13.10 ity of REGIONAL 4.2.7.2.686 Juan as MATERNAL [id number] [facility] ical & CHILD [address] [place] [address] 2019-09-30 2019-09-30 Initial Satinder HIJUAN [id number] Univers 13:30:37 14:59:32 Carla C RETORT OR CONDENSER PRESS OPERATOR 350.1.13.10 ity of Visit [facility] 4.2.7.2.686 Juan as MATERNAL [id number] Med ical & CHILD [address] [place] [address] 2019-09-30 2019-09-30 Orders Doctor ESTUARDO 1.2.840.114 [id number] [facility] 00:00:00 00:00:00 Only Unassigned, LUKE 350.1.13.10 ity of [place] [facility] 4.2.7.2.686 Juan as [phone] [address] Results Test Description Test Time Test Comments Results Result Comments Source POCT TEST 2020-01-07 14:33:00 Test Item Value Reference Range Interpretation Comme nts POCT PREG (test code = 1605) Negative On board controls acceptable with C Line (test code = 3574) Yes POCT PREG LOT # (test code = 3575) POCT PREG TEST DATE (test code = 3576) [id number] 14:33:00 Test Item Value Reference Range Interpretation Comments POCT PREG (test code = 1605) Negative On board controls acceptable with C Yes Line (test code = 3574) POCT PREG LOT # (test code = 3575) POCT PREG TEST DATE (test code = 3576) [facility] SYPHILIS [id number] 15:38:00 Test Item Value Reference Range Interpretation Comments Syphilis IgG/IgM (test Non-reactive Non-reactive code = 20393-2) JOSE RAFAEL (test code = JOSE RAFAEL) Non-reactive - No serologic evidence of T. pallidum infection. Cannot exclude incubating or early syphilis. Submit a second specimen in 2-4 weeks if syphilis is clinically suspected. Equivocal - Further testing to follow. Reactive - Further testing to follow. Lab Interpretation (test Normal code = 26435-8) [facility] WITH [id number] 09:57:00 Test Item Value Reference Range Interpretation [...] RDW-SD (test code = 44.9 fL 38.5-49 20512-7) RDW-CV (test code = 13.5 % 11.5-14 788-0) PLT (test code = See_Comment [Automated 777-3) message] The system which generated this result transmit gianna reference range : 135 - 361 10*3/ ?L. The reference range was not u sed to interpret th is result as normal/abnormal . MPV (test code = 11.5 fL 9.4-13.3 48531-6) NRBC/100 WBC (test See_Comment [Automat ed code = 3559722764) message] The system which generated this result transmit gianna reference range : 0.0 - 10.0 /100 WBCs. The reference range was not used to interpret this result as normal/abnormal . NRBC x10^3 (test code <0.01 See_Comment [Auto mated = 7566285315) message] The system which generated this result transmit gianna reference range : 10*3/?L. The reference range was not used to interpret this result as normal/abnormal . GRAN MAT (NEUT) % 82.3 % (test code = 770-8) IMM GRAN % (test code 1.00 % = 9492243975) LYMPH % (test code = 10.2 % 736-9) MONO % (test code = 5.6 % 5905-5) EOS % (test code = 0.5 % 713-8) BASO % (test code = 0.4 % 706-2) GRAN MAT x10^3(ANC) 14.09 10*3/uL 1.5-10.3 H (test code = 0659717231) IMM GRAN x10^3 (test 0.17 10*3/uL 0-0.06 H code = 4247192266) LYMPH x10^3 (test code 1.74 10*3/uL 0.7-7.4 = 731-0) MONO x10^3 (test code 0.96 10*3/uL 0-0.5 H = 742-7) EOS x10^3 (test code = 0.09 10*3/uL 0-0.4 711-2) BASO x10^3 (test code 0.06 10*3/uL 0-0.1 = 704-7) BANDS (test code = Increased A [id number]) Lab Interpretation Abnormal (test code = 30205-0) [facility] IMMUNE [id number] 04:07:12 Test Item Value Reference Range Interpretation Comments RHIG CANDIDATE? No- see comment Patient i s not a (test code = candidate for R hIg- 5055) Patient is Rh Positive.Perfor med at [facility] Laboratory Services - [facility] Blood [address] [place], [place] [address]Toll Free: [phone] A No. [id number] [facility] [id number] 23:57:00 Test Item Value Reference Range Interpretation Comments BASE EXCESS, CORD (test mEq/L code = 8452648039) AC PH, CORD (BEAKER) 7.18-7.38 (test code = 0625141577) PC02, CORD (test code = See_Comment H [Au tomated message] [id number]) The system [employer] generated this result transmitted ref erence range: 32 - 66 mmHg. The reference r devin was not used to interpret this result as normal/abnor mal. PO2, CORD (test code = See_Comment [Aut omated message] [id number]) The system [employer] generated this result transmitted ref erence range: 10 - 30 mmHg. The reference r devin was not used to interpret this result as normal/abnor mal. BICARBONATE, CORD (test See_Comment H [Au tomated message] code = 8531785628) The syste m which generated this result transmitted ref erence range: 17 - 27 mEq/L. The reference r devin was not used to interpret this result as normal/abnor mal. Lab Interpretation (test Abnormal code = 61222-3) [facility] [id number] 23:52:00 Test Item Value Reference Range Interpretation Comments VENOUS BASE EXCESS, CORD mEq/L (test code = 7219264220) VENOUS PH, CORD (test 7.25-7.45 code = 7269526200) VENOUS PC02, CORD (test See_Comment H [Au tomated message] code = 8037411357) The syste m which generated this result transmitted ref erence range: 27 - 49 mmHg. The reference r devin was not used to interpret this result as normal/abnor mal. VENOUS PO2, CORD (test See_Comment [Aut omated message] code = 2209168143) The syste m which generated this result transmitted ref erence range: 17 - 41 mmHg. The reference r devin was not used to interpret this result as normal/abnor mal. VENOUS BICARBONATE, CORD See_Comment [A utomated message] (test code = 2896310477) The system which generated this result transmitted ref erence range: 12 - 29 mEq/L. The reference r devin was not used to interpret this result as normal/abnor mal. Lab Interpretation (test Abnormal code = 25294-0) [facility]atitis B Surface [id number] 22:06:00 Test Item Value Reference Range Interpretation Comments HBsAg Semi-Quantitative (test code = Negative Negative 5195-3) [facility] HospitalType and Screen - ONCE [id number] 21:39:44 Test Item Value Reference Range Interpretation Comments ABO & RH (test code O POSITIVE Performe d at [facility] = 20) Laboratory Serv [facility] [facility] [address]Lofw Free: [phone] A No. [id number] IAT (test code = Negative Performed a t [facility] 1185) Laboratory Serv [facility] [address]Ibsf Free: [phone] A No. [id number] [facility]CORON[facility]IR[facility] COVID-19 [id number] 18:00:00 Test Item Value Reference Range Interpretation Comments SARS-CoV-2 (test code = Not Detected Not Detected 75059-2) JOSE RAFAEL (test code = JOSE RAFAEL) ID NOW COVID-19 Assay is an isothermal nucleic acid amplification test intended for the qualitative detection of nucleic acid from SARS-CoV-2 viral RNA in nasopharyngeal (FLAME BRAZING MACHINE OPERATOR) specimens. It is used under Emergency Use [...] indicated. Lab Interpretation Normal (test code = 25999-9) [facility] URINALYSIS W SPECIFIC [id number] 13:49:00 Test Item Value Reference Range Interpretation [...] POCT U APPEAR (test code = 3267) [facility] URINALYSIS W SPECIFIC [id number] 14:00:00 Test Item Value Reference Range Interpretation [...] POCT U APPEAR (test code = 3267) [facility] URINALYSIS W SPECIFIC [id number] 14:00:00 Test Item Value Reference Range Interpretation [...] POCT U APPEAR (test code = 3267) [facility] URINALYSIS W SPECIFIC [id number] 17:09:00 Test Item Value Reference Range Interpretation [...] POCT U APPEAR (test code = 3267) [facility] URINALYSIS W/O SPECIFIC [id number] 19:35:00 Test Item Value Reference Range Interpretation [...] code = 3257) Neg Negative - Negative [facility] URINALYSIS W/O SPECIFIC [id number] 19:35:00 Test Item Value Reference Range Interpretation [...] code = 3257) Neg Negative - [facility] [id number] 19:35:00 Test Item Value Reference Range Interpretation [...] code = 3257) Neg Negative - Negative [facility] [id number] 19:35:00 Test Item Value Reference Range Interpretation [...] code = 3257) Neg Negative - Negative [facility]PO[facility] [id number] 19:34:00 Test Item Value Reference Range Interpretation Comments POCT PREG (test code = 1605) Positive On board controls acceptable with C Yes Line (test code = 3574) POCT PREG LOT # (test code = 3575) POCT PREG TEST DATE (test code = 3576) [facility]PO[facility] [id number] 19:34:00 Test Item Value Reference Range Interpretation Comments POCT PREG (test code = 1605) Positive On board controls acceptable with C Yes Line (test code = 3574) POCT PREG LOT # (test code = 3575) POCT PREG TEST DATE (test code = 3576) [facility] [id number] 19:34:00 Test Item Value Reference Range Interpretation Comments POCT PREG (test code = 1605) Positive On board controls acceptable with C Yes Line (test code = 3574) POCT PREG LOT # (test code = 3575) POCT PREG TEST DATE (test code = 3576) [facility] [id number] 19:34:00 Test Item Value Reference Range Interpretation Comments POCT PREG (test code = 1605) Positive On board controls acceptable with C Yes Line (test code = 3574) POCT PREG LOT # (test code = 3575) POCT PREG TEST DATE (test code = 3576) [facility]
[2022-09-16 20:28] LABS: Urine Blood Negative (Negative); Urine Glucose Negative (Negative); Urine Protein Negative (Negative); Urine pH 6.5 (5.0-7.0)
[2022-09-16 20:28] LABS: Absolute Lymphocytes (CBC) 2.8 K/uL (0.7-4.9); Hematocrit 36.2 % (36.0-45.0); Lymphocytes % 22.9 % (15.3-44.8); MCV 83.9 fL (80-100); MPV 9.2 fL (7.6-11.3); RBC Red Blood Cell Count 4.32 M/uL (3.86-4.86)
[2022-09-16 20:43] LABS: Urine Bacteria None Seen /HPF (<20); Urine RBC <5 /HPF (None Seen)
[2022-09-16 20:44] LABS: Albumin 3.6 g/dL (3.4-5.0); Bilirubin Total 0.3 mg/dL (0.2-1.0); Potassium 3.7 mmol/L (3.5-5.1); Protein, Total 6.9 g/dL (6.4-8.2)
[2022-09-16] MEDS ORDERED: FAMOTIDINE 20 MG/2 ML VIAL IV ONE (20:50)
[2022-09-16] MEDS ORDERED: ONDANSETRON 4 MG/2 ML VIAL ONE (20:50)
[2022-09-16] MEDS ORDERED: DIPHENHYDRAMINE 50 MG/ML VIAL ONE (20:50)
[2022-09-16] MEDS ORDERED: NA CHLORIDE 0.9% 1,000 ML ONE (20:50)
[2022-09-16] MEDS ORDERED: METHYLPREDNISOLONE 125 MG INJ ONE (20:50)
--- NOTE | 2022-09-16 22:15 | ER ---
Nurse's Notes [facility] Name: Atiya Castellanos Age: 22 yrs Sex: Female : 2000 Arrival Date: 09/16/2022 Time: 18:06 Bed 20 Private MD: Diagnosis: Allergy, unspecified;Dizziness and giddiness;Diarrhea, unspecified Presentation: 09/16 18:07 Chief complaint: "I am having an allergic reaction. I got hives then diarrhea then I hb got really dizzy and my vision became blurry.". 18:08 Coronavirus screen: At this time, the client does not indicate any symptoms associated hb with coronavirus-19. Ebola Screen: No symptoms or risks identified at this time. Risk Assessment: Do you want to hurt yourself or someone else? Patient reports no desire to harm self or others. Onset of symptoms was September 16, 2022. 18:08 Method Of Arrival: Ambulatory hb 18:08 Acuity: CHRIS 3 hb 19:27 Initial Sepsis Screen: Does the patient meet any 2 criteria? No. Patient's initial pf1 sepsis screen is negative. Does the patient have a suspected source of infection? No. Patient's initial sepsis screen is negative. Triage Assessment: 18:07 General: Appears in no apparent distress. Behavior is calm, cooperative. Neuro: Level hb of Consciousness is awake, alert, obeys commands, Oriented to person, place, time, situation. Cardiovascular: Patient's skin is warm and dry. Respiratory: Respiratory effort is even, unlabored, Respiratory pattern is regular, symmetrical. 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 - Social history:: Smoking status: Patient denies any tobacco usage or history of. Screenin:22 [facility] ED Fall Risk Assessment (Adult) History of falling in the last 3 months, pf1 including since admission No falls in past 3 months (0 pts) Confusion or Disorientation No (0 pts) Intoxicated or Sedated No (0 pts) Impaired Gait No (0 pts) Mobility Assist Device Used No (0 pt) Altered Elimination No (0 pt) Score/Fall Risk Level 0 - 2 = Low Risk Oriented to surroundings, Maintained a safe environment, Educated pt \\T\\ family on fall prevention, incl call for assistance when getting out of bed, Assessed \\T\\ reinforced patient's understanding of fall precautions, Provided non-skid footwear, Hourly rounding (assess needs \\T\\ fall precautionary measures) done, Used ambulatory aids as needed (educated on \\T\\ assisted with), Used gait belt as appropriate. Abuse screen: Denies threats or abuse. Nutritional screening: No deficits noted. Tuberculosis screening: No symptoms or risk factors identified. Assessment: 21:30 General: Appears in no apparent distress. comfortable, well groomed, well developed, pf1 Behavior is calm, cooperative, appropriate for age, quiet. 21:30 Pain: Denies pain. Neuro: No deficits noted. Level of Consciousness is awake, alert, pf1 obeys commands, Oriented to person, place, time, situation. Cardiovascular: No deficits noted. Capillary refill < 3 seconds Patient's skin is warm and dry. Respiratory: No deficits noted. Airway is patent Trachea midline Respiratory effort is even, unlabored, Respiratory pattern is regular, symmetrical, Breath sounds are clear bilaterally. GI: Abdomen is flat, non-distended, Bowel sounds present X 4 quads. Abd is soft and non tender X 4 quads. Reports diarrhea. : No deficits noted. No signs and/or symptoms were reported regarding the genitourinary system. EENT: No deficits noted. No signs and/or symptoms were reported regarding the EENT system. 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 No rash identified at this time. Vital Signs: 18:08 BP 124 / 68; Pulse 76; Resp 16; Temp 97.1; Pulse Ox 100% on R/A; Weight 61.23 kg; hb Height 5 ft. (152.40 cm); Pain 3/10; 20:35 BP 108 / 66 Supine; Pulse 71; Pulse Ox 100% on R/A; zm 20:37 BP 108 / 77 Sitting; Pulse 69; Pulse Ox 100% on R/A; zm 20:39 BP 117 / 83 Standing; Pulse 85; Pulse Ox 100% on R/A; zm 21:30 BP 117 / 72; Pulse 80; Resp 18; Pulse Ox 100% on R/A; Pain 0/10; pf1 22:00 BP 106 / 64; Pulse 74; Resp 18; Temp 98(O); Pulse Ox 99% on R/A; Pain 0/10; pf1 18:08 Body Mass Index 26.37 (61.23 kg, 152.40 cm) hb ED Course: 18:06 Patient arrived in ED. am2 18:10 Triage completed. hb 18:10 Arm band placed on. hb 18:15 Lisandro Willard PA is PHCP. cp 18:15 Jose Raul Rayo MD is Attending Physician. cp 20:28 CBC with Diff Sent. zm 20:28 CMP Sent. zm 20:28 Urine Microscopic Only Sent. zm 20:28 Initial lab(s) drawn, by me, sent to lab. Urine collected: clean catch specimen. zm Inserted saline lock: 20 gauge in right antecubital area, using aseptic technique. 20:35 Mary Gil, LEONORA is Primary Nurse. kr3 21:30 Patient has correct armband on for positive identification. Placed in gown. Bed in low pf1 position. Call light in reach. 22:22 No provider procedures requiring assistance completed. IV discontinued, intact, pf1 bleeding controlled, No redness/swelling at site. Pressure dressing applied. Administered Medications: 21:03 Drug: SOLU-Medrol (methylPrednisoLONE) 125 mg Route: IVP; Site: right antecubital; kr3 21:52 Follow up: Response: No adverse reaction; Marked relief of symptoms pf1 21:04 Drug: NS 0.9% 1000 ml Route: IV; Rate: 1 bolus; Site: right antecubital; kr3 21:53 Follow up: Response: No adverse reaction; Marked relief of symptoms pf1 21:53 Follow up: IV Status: Completed infusion; IV Intake: 1000ml pf1 21:04 Drug: Zofran (Ondansetron) 4 mg Route: IVP; Site: right antecubital; kr3 21:52 Follow up: Response: No adverse reaction; Marked relief of symptoms; Nausea is decreasedpf1 21:04 Drug: Pepcid (famotidine) 20 mg Route: IVP; Site: right antecubital; kr3 21:52 Follow up: Response: No adverse reaction; Marked relief of symptoms pf1 21:04 Drug: Benadryl (diphenhydrAMINE) 25 mg Route: IVP; Site: right antecubital; kr3 21:52 Follow up: Response: No adverse reaction; Marked relief of symptoms pf1 Medication: 21:30 VIS not applicable for this client. pf1 Intake: 21:53 IV: 1000ml; Total: 1000ml. pf1 Outcome: 22:14 Discharge ordered by . cp 22:22 Discharged to home ambulatory. pf1 22:22 Condition: improved 22:22 Discharge instructions given to patient, Instructed on discharge instructions, follow up and referral plans. Demonstrated understanding of instructions, follow-up care. 22:25 Patient left the ED. pf1 Signatures: Lisandro Willard PA PA cp Chanel Kessler, LEONORA RN hb Karen Leyva am2 Halle Napoles Kelley, RN RN kr3 Erica segura RN RN pf1 Corrections: (The following items were deleted from the chart) 18:10 18:07 Chief complaint: Diarrhea and dizziness since this afternoon. hb hb
--- NOTE | 2022-09-16 22:15 | EDPHYS ---
Physician Documentation [facility] Name: Atiya Castellanos Age: 22 yrs Sex: Female : 2000 Arrival Date: 09/16/2022 Time: 18:06 Bed 20 Private MD: ED Physician Jose Raul Rayo HPI: 09/16 20:00 This 22 yrs old Female presents to ER via Ambulatory with complaints of Dizziness, cp Diarrhea. 20:00 The patient presents with dizziness, lightheadedness. Onset: The symptoms/episode cp began/occurred today. Associated signs and symptoms: Pertinent positives: blurred vision, rash, diarrhea, Pertinent negatives: abdominal pain, chest pain, focal weakness, headache, syncope. Severity of symptoms: in the emergency department the symptoms are unchanged despite home interventions. Patient's baseline: Neuro: alert and fully oriented, Motor: no deficits, Ambulation: walks without assistance, Speech: normal. Patient presents to ED with c/o allergic reaction. Patient denies any new medications except those recently prescribed from this ED for recent allergic reaction. Patient unsure which medications she was prescribed. 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 - Social history:: Smoking status: Patient denies any tobacco usage or history of. ROS: 20:05 Constitutional: Negative for body aches, chills, fever, poor PO intake. cp 20:05 Eyes: Positive for blurry vision, Negative for discharge, pain, redness. cp 20:05 ENT: Negative for drainage from ear(s), ear pain, sore throat, difficulty swallowing, difficulty handling secretions. 20:05 Cardiovascular: Negative for chest pain, edema, palpitations. 20:05 Respiratory: Negative for cough, shortness of breath, wheezing. 20:05 Abdomen/GI: Positive for diarrhea, Negative for abdominal pain, vomiting, constipation. 20:05 Skin: Negative for cellulitis, rash. 20:05 Neuro: Positive for dizziness, Negative for altered mental status, headache, syncope, weakness. 20:05 All other systems are negative. Exam: 20:10 Constitutional: The patient appears in no acute distress, alert, awake, cp non-diaphoretic, non-toxic, well developed, well nourished. 20:10 Head/Face: Normocephalic, atraumatic. cp 20:10 Eyes: Periorbital structures: appear normal, Pupils: equal, round, and reactive to light and accomodation, Extraocular movements: intact throughout, Conjunctiva: normal, no exudate, no injection, Sclera: no appreciated abnormality, Lids and lashes: appear normal, bilaterally. 20:10 ENT: External ear(s): are unremarkable, Nose: is normal, Mouth: Lips: moist, Oral mucosa: pink and intact, moist, Posterior pharynx: Airway: no evidence of obstruction, patent, Tonsils: are normal in appearance, swelling, is not appreciated, erythema, is not appreciated, exudate, is not appreciated, Voice: is normal. 20:10 Neck: ROM/movement: is normal, is supple, without pain, no range of motions limitations, no meningismus. 20:10 Chest/axilla: Inspection: normal. 20:10 Cardiovascular: Rate: normal, Rhythm: regular. 20:10 Respiratory: the patient does not display signs of respiratory distress, Respirations: normal, no use of accessory muscles, no retractions, labored breathing, is not present, Breath sounds: are clear throughout, no decreased breath sounds, no stridor, no wheezing. 20:10 Abdomen/GI: Inspection: abdomen appears normal, Palpation: abdomen is soft and non-tender, in all quadrants. 20:10 Skin: cellulitis, is not appreciated, no rash present. 20:10 Neuro: Orientation: to person, place \T\ time. Mentation: able to follow commands, slow to respond, Motor: moves all fours, strength is normal, Sensation: no obvious gross deficits. Vital Signs: 18:08 BP 124 / 68; Pulse 76; Resp 16; Temp 97.1; Pulse Ox 100% on R/A; Weight 61.23 kg; hb Height 5 ft. (152.40 cm); Pain 3/10; 20:35 BP 108 / 66 Supine; Pulse 71; Pulse Ox 100% on R/A; zm 20:37 BP 108 / 77 Sitting; Pulse 69; Pulse Ox 100% on R/A; zm 20:39 BP 117 / 83 Standing; Pulse 85; Pulse Ox 100% on R/A; zm 21:30 BP 117 / 72; Pulse 80; Resp 18; Pulse Ox 100% on R/A; Pain 0/10; pf1 22:00 BP 106 / 64; Pulse 74; Resp 18; Temp 98(O); Pulse Ox 99% on R/A; Pain 0/10; pf1 18:08 Body Mass Index 26.37 (61.23 kg, 152.40 cm) hb MDM: 18:18 Patient medically screened. cp 22:13 Data reviewed: vital signs, nurses notes, lab test result(s). cp 22:13 Consideration of Admission/Observation Escalation of care including cp admission/observation considered. I considered the following discharge prescriptions or medication management in the emergency department Medications were administered in the Emergency Department. See MAR. Test considered but Not performed: CT: abdomen/pelvis. Counseling: I had a detailed discussion with the patient and/or guardian regarding: the historical points, exam findings, and any diagnostic results supporting the discharge/admit diagnosis, lab results, the need for outpatient follow up, a family practitioner, to return to the emergency department if symptoms worsen or persist or if there are any questions or concerns that arise at home. Response to treatment: the patient's symptoms have markedly improved after treatment, and as a result, I will discharge patient. 09/16 20:05 Order name: CBC with Diff; Complete Time: 21:12 cp 09/16 20:05 Order name: CMP; Complete Time: 21:12 cp 09/16 20:05 Order name: Urine Microscopic Only; Complete Time: 21:12 cp 09/16 20:28 Order name: Urine Dipstick-Ancillary; Complete Time: 21:12 EDMS 09/16 20:30 Order name: Urine --Ancillary (enter results); Complete Time: 21:12 ds4 09/16 19:50 Order name: Orthostatics; Complete Time: 20:50 cp 09/16 20:05 Order name: IV; Complete Time: 20:28 cp 09/16 20:05 Order name: Labs collected and sent; Complete Time: 20:28 cp 09/16 20:05 Order name: Urine Dipstick-Ancillary (obtain specimen); Complete Time: 20:28 cp 09/16 20:05 Order name: Urine Test (obtain specimen); Complete Time: 20:28 cp 09/16 21:31 Order name: PO challenge; Complete Time: 21:49 cp Administered Medications: 21:03 Drug: SOLU-Medrol (methylPrednisoLONE) 125 mg Route: IVP; Site: right antecubital; kr3 21:52 Follow up: Response: No adverse reaction; Marked relief of symptoms pf1 21:04 Drug: NS 0.9% 1000 ml Route: IV; Rate: 1 bolus; Site: right antecubital; kr3 21:53 Follow up: Response: No adverse reaction; Marked relief of symptoms pf1 21:53 Follow up: IV Status: Completed infusion; IV Intake: 1000ml pf1 21:04 Drug: Zofran (Ondansetron) 4 mg Route: IVP; Site: right antecubital; kr3 21:52 Follow up: Response: No adverse reaction; Marked relief of symptoms; Nausea is decreasedpf1 21:04 Drug: Pepcid (famotidine) 20 mg Route: IVP; Site: right antecubital; kr3 21:52 Follow up: Response: No adverse reaction; Marked relief of symptoms pf1 21:04 Drug: Benadryl (diphenhydrAMINE) 25 mg Route: IVP; Site: right antecubital; kr3 21:52 Follow up: Response: No adverse reaction; Marked relief of symptoms pf1 Disposition Summary: 09/16/22 22:14 Discharge Ordered Location: Home cp Problem: an ongoing problem cp Symptoms: have improved cp Condition: Stable cp Diagnosis - Allergy, unspecified cp - Dizziness and giddiness cp - Diarrhea, unspecified cp Followup: cp - With: Private Physician - When: 1 - 2 days - Reason: Recheck today's complaints Discharge Instructions: - Discharge Summary Sheet cp - Diarrhea, Adult cp - Dizziness cp Forms: - Medication Reconciliation Form cp - Thank You Letter cp - Antibiotic Education cp - Prescription Opioid Use cp Signatures: Dispatcher [employer] EDLisandro Upton PA PA cp Chanel Kessler RN RN Mary Gil RN RN kr3 Erica segura RN pf1
[2022-09-16 22:44] VITALS: TEMP 97.1; O2SAT 100
[2022-09-16 22:52] VITALS: BP 117/83
== END 2022-09-16 22:25 | disposition home or self-care (01) ==
LOC: ER 18:04
DX: R42 Dizziness and giddiness (principal); R19.7 Diarrhea, unspecified; T78.40XA Allergy, unspecified, initial encounter; Z91.011 Allergy to milk products; Z91.018 Allergy to other foods
CPT/HCPCS: 96361; 85025; 36415; 81025; 80053; 96375; 96374; 99284; J1200; J7030; J2930; J2405; 81003; 81015

== ENCOUNTER 2022-09-19 15:49 | Emergency (ER) | payer OTHER ==
--- OUTSIDE RECORDS SUMMARY | 2022-09-19 16:00 | XMS REPORT | Continuity of Care Document ---
:2000 Author Organization [facility] t Address [address] [place] [address] Care Team Providers Name Role Phone Declan Fermin DO Attending Clinician Rashid Moses Attending Clinician RASHID CHA Attending Clinician Unavailable Doctor Unassigned, Newell Attending Clinician Unavailable Visit, Qian Nurse Attending Clinician Unavailable Carla Ramos Attending Clinician [phone] CARLA RAJAN Attending Clinician Unavailable Fidelia Billings MD Attending Clinician Faculty, Han Marquez Attending Clinician Unavailable Leandro Neff MD Attending Clinician Ultrasound, Ayden Attending Clinician Unavailable Lab, Qian Attending Clinician Unavailable Fidelia Billings MD Admitting Clinician Payers Payer Name Policy Type Policy Number Effective Date Expiration Date Belinda LOVELL [id number] 2019 HEALTH 00:00:00 Problems Condition Condition Condition [...] (BMI 4-11 ity of 30-39.9) 30-39.9) 00:00: [place] [facility] 37 weeks 37 weeks Disease Active 2020-0 Unive rs gestation gestation 4-11 ity of of of 00:00: [place] 00 [facility] Chlamydia Chlamydia Disease Active 2020-0 Overview: Univers infection infection 2-19 Pending ity of during during 00:00: MICHAEL -neg [place] 00 [facility] Gonorrhea Gonorrhea Disease Active 2020-0 Overview: Univers in in 2-19 [place] 00 [place] [facility] Susceptibl Susceptibl Disease Active 2020-0 Overview : Univers e to e to -19 Address ity of varicella var[place]ella 00:[place] (non-immun (non-immun 00 Me dical e), e), Branch currently currently Supervisio Supervisio Disease Active 2020-0 U nivers n of n of 2-18 ity of high-risk high-risk 00:[place] 00 [facility] with with Branch insufficie insufficie nt nt care care Over Over Disease Active 2020-0 Univers weight weight 2-18 ity of 00:00: [place] [facility] Branch Multiparit Multiparit Disease Active 2020-0 U nivers y y 2-18 ity of 00:00: [place] [facility] History of History of Disease Active 2020-0 Overview : Univers bipolar bipolar 2-18 Not on ity of disorder disorder 00:00: meds x1 [place] year Medical Branch History of History of Disease Active 2020-0 Overview : Univers depression depression 2-18 Not on it y of 00:00: meds x1 [place] year Medical Branch History of History of Disease Active 2020-0 Overview : Univers anxiety anxiety 2-18 Not on ity of 00:00: meds x1 [place] year Medical Branch History of History of Disease Active 2020-0 Overview : Univers 2-18 Reports ity of [place] 00 at [facility] 31weeks Branch ROR requested History of History of Disease Active 2020-0 U nivers ADHD ADHD 2-18 ity of 00:00: [place] [facility] Family Family Disease Active 2020-0 Overview: Univer s history of history of 2-18 Reports i ty of autism autism 00:00: cousins Medical Branch History of History of Disease Active Overview : Univers polyhydram polyhydram 2-18 Reports i ty of nios nios 00:00: delivery 00 at 31 Medical weeks Branch Allergies, Adverse Reactions, Alerts Allergy Allergy Status Severity Reaction(s) Onset Inactive Treating Comm ents Source Name Type Date Date Clinician Bee Propensi Active Anaphylaxis Uni vers Sting / ty to 2-18 ity of Venom adverse 00:00: [place] reaction 00 Medical s Branch BEE DRUG Active Anaphylaxis Unive rs STING / INGREDI 18 ity of VENOM 00:00: [place] 00 Medical [...] ity of 00:00: [place] 00 Medical Branch Social History Social Habit Start Date Stop Date Quantity Comments Source ASSERTION 2019-03-20 University of 00:00:00 [facility] Exposure to Not sure [place] of SARS-CoV-2 [place] [facility] (event) Branch Tobacco use and 2020-01-07 2020-01-07 Never used Universit y of exposure 00:00:00 00:00:00 [facility] Alcohol intake 2020-01-07 2020-01-07 Ex-drinker University of 00:00:00 00:00:00 (finding) [facility] History SDOH 2019-11-22 2019-11-22 11 University o f Education 00:00:00 00:00:00 [facility] Tobacco Comment 2013-06-10 2013-06-10 mom smokes Universit y of 00:00:00 00:00:00 outside [facility] Sex Assigned At [birth year] Universit y of 00:00:00 00:00:00 [facility] Smoking Status Start Date Stop Date Source Never smoker [facility] Medications Ordered Filled Start Stop Current Ordering Indication Dosage Frequency Signature Comments Components Source Medication Medication Date Date Medication? Clinician (SIG) Name Name etonogestre 2019-2019- No [id number] 68mg Univers l 01-06 ity of (NEXPLANON) 16:00: 14:55 [place] implant 68 00 :00 Medical mg Branch etonogestre 2019-2019- No [id number] 68mg 68 mg, Univers l 01-06 Subdermal, ity of (NEXPLANON) 16:00: 14:55 ONCE NOW, [place] implant 68 00 :00 1 dose, Medica l mg [facility] 01/07/20 at 1100, Routine
Use approved by: 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 etonogestre 2019-2019- No [id number] 68mg Univers l 01-06 ity of (NEXPLANON) 16:00: 14:55 [place] implant 68 00 :00 Medical mg Branch etonogestre 2019- No [id number] 68mg 68 mg, Univers l 01-06 Subdermal, ity of (NEXPLANON) 16:00: 14:55 ONCE NOW, [place] implant 68 00 :00 1 dose, Medica l mg [facility] 01/07/20 at 1100, Routine
Use approved by: 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 lisdexamfet 2020- No 50mg Take 50 mg Univers amine 11-22-12 by mouth ity of (VYVANSE) 12:42: 00:00 every [place] 50 mg 10 :00 morning. Medical capsule Branch ARIPiprazol 2020- No 2mg Take 2 mg Univers e (ABILIFY) 11-22-12 by mouth ity of 2 mg tablet 12:42: 00:00 daily. [place] 10 :00 Medical Branch human Yes .5mL 0.5 mL, Univers papillomav 4-12 Intramuscu ity of vac,9-migel(P 12:26: lar, [place] F) 12 ONCE-PRIOR Medical (GARDASIL-9 TO Branch ) syringe DISCHARGE, 0.5 mL 1 dose, Starting 11/23/19 at 0726, Until Discontinu ed, Routine, Give vaccine prior to discharge varicella 2019-2019- No .5mL 0.5 mL, Univ ers virus 11-2213 Subcutaneo ity of vaccine 12:26: 16:35 us, [place] live 12 :00 ONCE-PRIOR Medical (VARIVAX TO [...] No .4mg 0.4 mg, Unive rs (NARCAN) 4-12 04-14 Slow IV ity of injection 00:13: 00:12 [place]N [place] 0.4 mg 34 :34 - SEE Medical INSTRUCTIO Branch NS, Starting 11/22/19 at 1913, Until Mon 13/20 at 1911, Routine, Analgesia Recovery 2020-0 Yes [id number] 1{tbl} Take 1 Univers vitamin 4-12 tablet by ity of w/FA tablet 00:00: mouth [place] 00 daily. Medical Branch docusate 2020-0 Yes [id number] 240mg Take 1 U nivers calcium 240 4-12 capsule by it y of mg capsule 00:00: mouth once [place] 00 daily as Medical needed for Branch Constipati on. ferrous 2020-0 Yes [id number] 325mg Take 1 Un dustin sulfate 325 4-12 tablet by ity of mg (65 mg 00:00: mouth 2 [place] iron) 00 (two) Medical tablet times Branch daily. ibuprofen 2020-0 Yes [id number] 600mg Take 1 Univers 600 mg 4-12 tablet by ity of tablet 00:00: mouth [place] 00 every 6 Medical (six) Branch hours as needed (Pain). Take with food or milk. 2020-0 Yes [id number] 1{tbl} Take 1 Univers vitamin 4-12 tablet by ity of w/FA tablet 00:00: mouth [place] 00 daily. Medical Branch docusate 2020-0 Yes [id number] 240mg Take 1 U nivers calcium 240 4-12 capsule by it y of mg capsule 00:00: mouth once [place] 00 daily as Medical needed for Branch Constipati on. ferrous 2020-0 Yes [id number] 325mg Take 1 Un dustin sulfate 325 4-12 tablet by ity of mg (65 mg 00:00: mouth 2 [place] iron) 00 (two) Medical tablet times Branch daily. ibuprofen 2020-0 Yes [id number] 600mg Take 1 Univers 600 mg 4-12 tablet by ity of tablet 00:00: mouth [place] 00 every 6 Medical (six) Branch hours as needed (Pain). Take with food or milk. 2020-0 Yes [id number] 1{tbl} Take 1 Univers vitamin 4-12 tablet by ity of w/FA tablet 00:00: mouth [place] 00 daily. Medical Branch docusate 2020-0 Yes [id number] 240mg Take 1 U nivers calcium 240 4-12 capsule by it y of mg capsule 00:00: mouth once [place] 00 daily as Medical needed for Branch Constipati on. ferrous 2020-0 Yes [id number] 325mg Take 1 Un dustin sulfate 325 4-12 tablet by ity of mg (65 mg 00:00: mouth 2 [place] iron) 00 (two) Medical tablet times Branch daily. ibuprofen 2020-0 Yes [id number] 600mg Take 1 Univers 600 mg 4-12 tablet by ity of tablet 00:00: mouth [place] 00 every 6 Medical (six) Branch hours as needed (Pain). Take with food or milk. 2020-0 Yes [id number] 1{tbl} Take 1 Univers vitamin 4-12 tablet by ity of w/FA tablet 00:00: mouth [place] 00 daily. Medical Branch docusate 2020-0 Yes [id number] 240mg Take 1 U nivers calcium 240 4-12 capsule by it y of mg capsule 00:00: mouth once [place] 00 daily as Medical needed for Branch Constipati on. ferrous 2020-0 Yes [id number] 325mg Take 1 Un dustin sulfate 325 4-12 tablet by ity of mg (65 mg 00:00: mouth 2 [place] iron) 00 (two) Medical tablet times Branch daily. ibuprofen 2020-0 Yes [id number] 600mg Take 1 Univers 600 mg 4-12 tablet by ity of tablet 00:00: mouth [place] 00 every 6 Medical (six) Branch hours as needed (Pain). Take with food or milk. 2020-0 Yes [id number] 1{tbl} Take 1 Univers vitamin 4-12 tablet by ity of w/FA tablet 00:00: mouth [place] 00 daily. Medical Branch docusate 2020-0 Yes [id number] 240mg Take 1 U nivers calcium 240 4-12 capsule by it y of mg capsule 00:00: mouth once [place] 00 daily as Medical needed for Branch Constipati on. ferrous 2020-0 Yes [id number] 325mg Take 1 Un dustin sulfate 325 4-12 tablet by ity of mg (65 mg 00:00: mouth 2 [place] iron) 00 (two) Medical tablet times Branch daily. ibuprofen 2020-0 Yes [id number] 600mg Take 1 Univers 600 mg 4-12 tablet by ity of tablet 00:00: mouth [place] 00 every 6 Medical (six) Branch hours as needed (Pain). Take with food or milk. 2020-0 Yes [id number] 1{tbl} Take 1 Univers vitamin 4-12 tablet by ity of w/FA tablet 00:00: mouth [place] 00 daily. Medical Branch docusate 2020-0 Yes [id number] 240mg Take 1 U nivers calcium 240 4-12 capsule by it y of mg capsule 00:00: mouth once [place] 00 daily as Medical needed for Branch Constipati on. ferrous 2020-0 Yes [id number] 325mg Take 1 Un dustin sulfate 325 4-12 tablet by ity of mg (65 mg 00:00: mouth 2 [place] iron) 00 (two) Medical tablet times Branch daily. ibuprofen 2020-0 Yes [id number] 600mg Take 1 Univers 600 mg 4-12 tablet by ity of tablet 00:00: mouth [place] 00 every 6 Medical (six) Branch hours as needed (Pain). Take with food or milk. 2020-0 Yes [id number] 1{tbl} Take 1 Univers vitamin 4-12 tablet by ity of w/FA tablet 00:00: mouth [place] 00 daily. Medical Branch docusate 2020-0 Yes [id number] 240mg Take 1 U nivers calcium 240 4-12 capsule by it y of mg capsule 00:00: mouth once [place] 00 daily as Medical needed for Branch Constipati on. ferrous 2020-0 Yes [id number] 325mg Take 1 Un dustin sulfate 325 4-12 tablet by ity of mg (65 mg 00:00: mouth 2 [place] iron) 00 (two) Medical tablet times Branch daily. ibuprofen 2020-0 Yes [id number] 600mg Take 1 Univers 600 mg 4-12 tablet by ity of tablet 00:00: mouth [place] 00 every 6 Medical (six) Branch hours as needed (Pain). Take with food or milk. HYDROcodone 2020- No [id number] 1{tbl} Take 1 Univers -acetaminop 4-12 04-20 tablet by it y of hen 5-325 00:00: 04:59 mouth [place] mg tablet 00 :00 every 6 Medical (six) Branch hours as needed (for pain) for up to 7 days. Do not exceed 3 grams of acetaminop hen in 24 hours. HYDROcodone 2020- No [id number] 1{tbl} Take 1 Univers -acetaminop 4-12 04-20 [...] Surgical Prophylaxi s
Surgi ashley Prophylaxi s: 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
Duration of therapy: within 24 hours of [...] 1627, Routine, Surgery/Pr ocedure LR 1000 mL 2019-0 2020- No 2mU/min 2-40 Uni vers + [...] faculty approval.& nbsp;&nbsp ;Max 40 zhanna-unit s/min.
2019-0 Yes 1{tbl} Take 1 Unive rs [...] 00:00: mouth [place] (RIGHT STEP 00 daily. [facility] Branch VITAMINS) 27 mg iron- 0.8 mg per tablet ferrous 2020-0 Yes 325mg Take 1 Univers sulfate 325 3-02 tablet by ity of mg (65 mg 00:00: mouth [place] iron) 00 daily. Medical tablet Branch 2020-0 Yes 1{tbl} Take 1 Unive rs Vit-Iron 3-02 tablet by ity of Fumarate-FA 00:00: mouth [place] (RIGHT STEP 00 daily. [facility] VITAMINS) 27 mg iron- 0.8 mg per tablet ferrous 2020-0 Yes 325mg Take 1 Univers sulfate 325 3-02 tablet by ity of mg (65 mg 00:00: mouth [place] iron) 00 daily. Medical tablet Branch 2020-0 Yes 1{tbl} Take 1 Unive rs Vit-Iron 3-02 tablet by ity of Fumarate-FA 00:00: mouth [place] (RIGHT STEP 00 daily. [facility] VITAMINS) 27 mg iron- 0.8 mg per tablet ferrous 2020-0 Yes 325mg Take 1 Univers sulfate 325 3-02 tablet by ity of mg (65 mg 00:00: mouth [place] iron) 00 daily. Medical tablet Branch 2020-0 Yes 1{tbl} Take 1 Unive rs Vit-Iron 3-02 tablet by ity of Fumarate-FA 00:00: mouth [place] (RIGHT STEP 00 daily. [facility] VITAMINS) 27 mg iron- 0.8 mg per tablet ferrous 2020-0 Yes 325mg Take 1 Univers sulfate 325 3-02 tablet by ity of mg (65 mg 00:00: mouth [place] iron) 00 daily. Medical tablet Branch 2020-0 Yes 1{tbl} Take 1 Unive rs Vit-Iron 3-02 tablet by ity of Fumarate-FA 00:00: mouth [place] (RIGHT STEP 00 daily. [facility] VITAMINS) 27 mg iron- 0.8 mg per tablet ferrous 2020-0 Yes 325mg Take 1 Univers sulfate 325 3-02 tablet by ity of mg (65 mg 00:00: mouth [place] iron) 00 daily. Medical tablet Branch 2020-0 Yes 1{tbl} Take 1 Unive rs Vit-Iron 3-02 tablet by ity of Fumarate-FA 00:00: mouth [place] (RIGHT STEP 00 daily. [facility] Branch VITAMINS) 27 mg iron- 0.8 mg [...] mg iron- 0.8 mg per tablet ferrous 2019-0 Yes 325mg Take 1 Univers sulfate 325 3-02 tablet by ity of mg (65 mg 00:00: mouth [place] iron) 00 daily. Medical tablet Branch 2020- No 1{tbl} Take 1 Univ ers Vit-Iron 3-02 04-12 tablet by ity o f Fumarate-FA 00:00: 00:00 [place] (RIGHT STEP 00 :00 daily. Medica l [facility] VITAMINS) 27 mg iron- 0.8 mg per tablet ferrous 2019- No 325mg Take 1 Univer s sulfate 325 3- 04-12 tablet by it y of mg [...] Therapy: Other (see Comments) azithromyci 2019-2019- No [id number] 1000mg Take 2 Univers n 500 mg -01 10-20 tablets by ity of tablet 00:00: 05:59 mouth once [place] 00 :00 now for 1 Medical dose. Branch azithromyci 2019- No [id number] 1000mg Take 2 Univers n 500 mg 2-19 02-20 tablets by ity of tablet 00:00: 05:59 mouth once [facility] 00 :00 now for 1 Medical dose. Branch ARIPiprazol 2020-0 Yes 2mg Take 2 mg U nivers e (ABILIFY) 2-18 by mouth ity of 2 mg tablet 19:58: daily. [facility] Medical Branch lisdexamfet 2019-0 Yes 50mg Take 50 mg Univers amine 2-18 by mouth ity of (VYVANSE) 19:58: every [place] 50 mg 26 morning. Medical capsule Branch ARIPiprazol 2020-0 Yes 2mg Take 2 mg U nivers e (ABILIFY) 2-18 by mouth ity of 2 mg tablet 19:58: daily. [facility] Medical Branch lisdexamfet 2019-0 Yes 50mg Take 50 mg Univers amine 2-18 by mouth ity of (VYVANSE) 19:58: every [place] 50 mg 26 morning. Medical capsule Branch ARIPiprazol 2019-0 Yes 2mg Take 2 mg U nivers e (ABILIFY) 2-18 by mouth ity of 2 mg tablet 19:58: daily. [facility] Medical Branch lisdexamfet 2019-0 Yes 50mg Take 50 mg Univers amine 2-18 by mouth ity of (VYVANSE) 19:58: every [place] 50 mg 26 morning. Medical capsule Branch ARIPiprazol 2020-0 Yes 2mg Take 2 mg U nivers e (ABILIFY) 2-18 by mouth ity of 2 mg tablet 19:58: daily. [facility] Medical Branch lisdexamfet 2020-0 Yes 50mg Take 50 mg Univers amine 2-18 by mouth ity of (VYVANSE) 19:58: every [place] 50 mg 26 morning. Medical capsule Branch ARIPiprazol 2020-0 Yes 2mg Take 2 mg U nivers e (ABILIFY) 2-18 by mouth ity of 2 mg tablet 19:58: daily. [facility] Medical Branch lisdexamfet 2020-0 Yes 50mg Take 50 mg Univers amine 2-18 by mouth ity of (VYVANSE) 19:58: every [place] 50 mg 26 morning. Medical capsule Branch ARIPiprazol 2020-0 Yes 2mg Take 2 mg U nivers e (ABILIFY) 2-18 by mouth ity of 2 mg tablet 19:58: daily. [place] [address] Medical Branch lisdexamfet 2020-0 Yes 50mg Take 50 mg Univers amine 2-18 by mouth ity of (VYVANSE) 19:58: every [place] 50 mg 26 morning. Medical capsule Branch ARIPiprazol 2020-0 Yes 2mg Take 2 mg U nivers e (ABILIFY) 2-18 by mouth ity of 2 mg tablet 19:58: daily. [place] [address] Medical Branch lisdexamfet 2020-0 Yes 50mg Take 50 mg Univers amine 2-18 by mouth ity of (VYVANSE) 19:58: every [place] 50 mg 26 morning. Medical capsule Branch ARIPiprazol 2020-0 Yes 2mg Take 2 mg U nivers e (ABILIFY) 2-18 by mouth ity of 2 mg tablet 19:58: daily. [address] Branch lisdexamfet 2020-0 Yes 50mg Take 50 mg Univers amine 2-18 by mouth ity of (VYVANSE) 19:58: every [place] 50 mg 26 morning. Medical capsule Branch ARIPiprazol 2020-0 Yes 2mg Take 2 mg U nivers e (ABILIFY) 2-18 by mouth ity of 2 mg tablet 19:58: daily. [address] Branch lisdexamfet 2020-0 Yes 50mg Take 50 mg Univers amine 2-18 by mouth ity of (VYVANSE) 19:58: every [place] 50 mg 26 morning. Medical capsule Branch ARIPiprazol 2020-0 Yes 2mg Take 2 mg U nivers e (ABILIFY) 2-18 by mouth ity of 2 mg tablet 19:58: daily. [address] Branch lisdexamfet 2020-0 Yes 50mg Take 50 mg Univers amine 2-18 by mouth ity of (VYVANSE) 19:58: every [place] 50 mg 26 morning. Medical capsule Branch ARIPiprazol 2020-0 Yes 2mg Take 2 mg U nivers e (ABILIFY) 2-18 by mouth ity of 2 mg tablet 19:58: daily. [place] [address] Medical Branch lisdexamfet 2020-0 Yes 50mg Take 50 mg Univers amine 2-18 by mouth ity of (VYVANSE) 19:58: every [place] 50 mg 26 morning. Medical capsule Branch ARIPiprazol 2020-0 Yes 2mg Take 2 mg U nivers e (ABILIFY) 2-18 by mouth ity of 2 mg tablet 19:58: daily. [address] Branch lisdexamfet 2020-0 Yes 50mg Take 50 mg Univers amine 2-18 by mouth ity of (VYVANSE) 19:58: every [place] 50 mg 26 morning. Medical capsule Branch ARIPiprazol 2020-0 Yes 2mg Take 2 mg U nivers e (ABILIFY) 2-18 by mouth ity of 2 mg tablet 19:58: daily. [place] [address] Medical Branch lisdexamfet 2020-0 Yes 50mg Take 50 mg Univers amine 2-18 by mouth ity of (VYVANSE) 19:58: every [place] 50 mg 26 morning. Medical capsule Branch ARIPiprazol 2020-0 Yes 2mg Take 2 mg U nivers e (ABILIFY) 2-18 by mouth ity of 2 mg tablet 19:58: daily. [place] [address] Medical Branch lisdexamfet 2020-0 Yes 50mg Take 50 mg Univers amine 2-18 by mouth ity of (VYVANSE) 19:58: every [place] 50 mg 26 morning. Medical capsule Branch ARIPiprazol 2020-0 Yes 2mg Take 2 mg U nivers e (ABILIFY) 2-18 by mouth ity of 2 mg tablet 19:58: daily. [place] [address] Medical Branch lisdexamfet 2020-0 Yes 50mg Take 50 mg Univers amine 2-18 by mouth ity of (VYVANSE) 19:58: every [place] 50 mg 26 morning. Medical capsule Branch ARIPiprazol 2020-0 Yes 2mg Take 2 mg U nivers e (ABILIFY) 2-18 by mouth ity of 2 mg tablet 19:58: daily. [address] Branch lisdexamfet 2020-0 Yes 50mg Take 50 mg Univers amine 2-18 by mouth ity of (VYVANSE) 19:58: every [place] 50 mg 26 morning. Medical capsule Branch ARIPiprazol 2019-0 Yes 2mg Take 2 mg U nivers e (ABILIFY) 2-18 by mouth ity of 2 mg tablet 19:58: daily. [place] [address] Medical Branch lisdexamfet 2019-0 Yes 50mg Take 50 mg Univers amine 2-18 by mouth ity of (VYVANSE) 19:58: every [place] 50 mg 26 morning. Medical capsule Branch ARIPiprazol 2019-0 Yes 2mg Take 2 mg U nivers e (ABILIFY) 2-18 by mouth ity of 2 mg tablet 19:58: daily. [place] [address] Medical Branch lisdexamfet 2019-0 Yes 50mg Take 50 mg Univers amine 2-18 by mouth ity of (VYVANSE) 19:58: every [place] 50 mg 26 morning. Medical capsule Branch ARIPiprazol 2019-0 Yes 2mg Take 2 mg U nivers e (ABILIFY) 2-18 by mouth ity of 2 mg tablet 19:58: daily. [place] [address] Medical Branch lisdexamfet 2019-0 Yes 50mg Take 50 mg Univers amine 2-18 by mouth ity of (VYVANSE) 19:58: every [place] 50 mg 26 morning. Medical capsule Branch ARIPiprazol 2019-0 Yes 2mg Take 2 mg U nivers e (ABILIFY) 2-18 by mouth ity of 2 mg tablet 19:58: daily. [address] Branch lisdexamfet 2019-0 Yes 50mg Take [...] ity of 2 mg tablet 14:18: daily. [place] [address] Medical Branch Somatropin Yes [id number] 3mg inject 3 Univers (NORDITROPI 5-05 mg under ity of N FLEXPRO) 00:00: the skin [place] 15 mg/1.5 00 daily. Medical mL (10 Branch mg/mL) PnIj Somatropin 2014-0 Yes [id number] 3mg inject 3 Univers (NORDITROPI 5-05 mg under ity of N FLEXPRO) 00:00: the skin [place] 15 mg/1.5 00 daily. Medical mL (10 Branch mg/mL) PnIj Somatropin 2014-0 Yes [id number] 3mg inject 3 Univers (NORDITROPI 5-05 mg under ity of N FLEXPRO) 00:00: the skin [place] 15 mg/1.5 00 daily. Medical mL (10 Branch mg/mL) PnIj Somatropin 2014-0 Yes [id number] 3mg inject 3 Univers (NORDITROPI 5-05 mg under ity of N FLEXPRO) 00:00: the skin [place] 15 mg/1.5 00 daily. Medical mL (10 Branch mg/mL) PnIj Somatropin 2014- Yes [id number] 3mg inject 3 Univers (NORDITROPI 5-05 mg under ity of N FLEXPRO) 00:00: the skin [place] 15 mg/1.5 00 daily. Medical mL (10 Branch mg/mL) PnIj Somatropin 2014- Yes [id number] 3mg inject 3 Univers (NORDITROPI 5-05 mg under ity of N FLEXPRO) 00:00: the skin [place] 15 mg/1.5 00 daily. Medical mL (10 Branch mg/mL) PnIj Somatropin 2014- Yes [id number] 3mg inject 3 Univers (NORDITROPI 5-05 mg under ity of N FLEXPRO) 00:00: the [place] 15 mg/1.5 00 daily. Medical mL (10 Branch mg/mL) PnIj Somatropin 2014-0 Yes [id number] 3mg inject 3 Univers (NORDITROPI 5-05 mg under ity of N FLEXPRO) 00:00: the skin [place] 15 mg/1.5 00 daily. Medical mL (10 Branch mg/mL) PnIj Somatropin 2014-0 Yes [id number] 3mg inject 3 Univers (NORDITROPI 5-05 mg under ity of N FLEXPRO) 00:00: the skin [place] 15 mg/1.5 00 daily. Medical mL (10 Branch mg/mL) PnIj Somatropin 2014-0 Yes [id number] 3mg inject 3 Univers (NORDITROPI 5-05 mg under ity of N FLEXPRO) 00:00: the skin [place] 15 mg/1.5 00 daily. Medical mL (10 Branch mg/mL) PnIj Somatropin 2014-0 Yes [id number] 3mg inject 3 Univers (NORDITROPI 5-05 mg under ity of N FLEXPRO) 00:00: the skin [place] 15 mg/1.5 00 daily. Medical mL (10 Branch mg/mL) PnIj Somatropin 2014-0 Yes [id number] 3mg inject 3 Univers (NORDITROPI 5-05 mg under ity of N FLEXPRO) 00:00: the skin [place] 15 mg/1.5 00 daily. Medical mL (10 Branch mg/mL) PnIj Somatropin 2014- Yes [id number] 3mg inject 3 Univers (NORDITROPI 5-05 mg under ity of N FLEXPRO) 00:00: the skin [place] 15 mg/1.5 00 daily. Medical mL (10 Branch mg/mL) PnIj Somatropin 2014- Yes [id number] 3mg inject 3 Univers (NORDITROPI 5-05 mg under ity of N FLEXPRO) 00:00: the skin [place] 15 mg/1.5 00 daily. Medical mL (10 Branch mg/mL) PnIj Somatropin 2014- Yes [id number] 3mg inject 3 Univers (NORDITROPI 5-05 mg under ity of N FLEXPRO) 00:00: the skin [place] 15 mg/1.5 00 daily. Medical mL (10 Branch mg/mL) PnIj Somatropin 2014-0 Yes [id number] 3mg inject 3 Univers (NORDITROPI 5-05 mg under ity of N FLEXPRO) 00:00: the skin [place] 15 mg/1.5 00 daily. Medical mL (10 Branch mg/mL) PnIj Somatropin 2014-0 Yes [id number] 3mg inject 3 Univers (NORDITROPI 5-05 mg under ity of N FLEXPRO) 00:00: the skin [place] 15 mg/1.5 00 daily. Medical mL (10 Branch mg/mL) PnIj Somatropin 2014-0 Yes [id number] 3mg inject 3 Univers (NORDITROPI 5-05 mg under ity of N FLEXPRO) 00:00: the skin [place] 15 mg/1.5 00 daily. Medical mL (10 Branch mg/mL) PnIj Somatropin 2014- Yes [id number] 3mg inject 3 Univers (NORDITROPI 5-05 mg under ity of N FLEXPRO) 00:00: the skin [place] 15 mg/1.5 00 daily. Medical mL (10 Branch mg/mL) PnIj Somatropin 2014- Yes [id number] 3mg inject 3 Univers (NORDITROPI 5-05 mg under ity of N FLEXPRO) 00:00: the skin [place] 15 mg/1.5 00 daily. Medical mL (10 Branch mg/mL) PnIj Somatropin 2014- Yes [id number] 3mg inject 3 Univers (NORDITROPI 5-05 mg under ity of N FLEXPRO) 00:00: the skin [place] 15 mg/1.5 00 daily. Medical mL (10 Branch mg/mL) PnIj Somatropin 2020- No [id number] 3mg inject 3 Univers (NORDITROPI 5-05 04-12 [...] #3) 300-30 00 Medical mg tablet Branch acetamino 2013-08 Yes Univer s en-codeine 1-25 ity of (TYLENOL 00:00: [place] #3) 300-30 [address] [facility] Univer s en-codeine 1-25 ity of (TYLENOL 00:00: [place] #3) 300-30 00 Medical mg tablet Branch acetamino 2013-08 Yes Univer s en-codeine 1-25 ity of (TYLENOL 00:00: [place] #3) 300-30 00 Medical mg tablet Branch acetamino 2013-08 Yes Univer s en-codeine 1-25 ity of (TYLENOL 00:00: [place] #3) 300-30 00 [facility] Un[facility] s en-codeine 1-25 ity of (TYLENOL 00:00: [place] #3) 300-30 00 Medical mg tablet Branch acetamino 2013-08 Yes Univer s en-codeine 1-25 ity of (TYLENOL 00:00: [place] #3) 300-30 00 Medical mg tablet Branch [facility] 2013-08 Yes Univer s en-codeine 1-25 ity of (TYLENOL 00:00: [place] #3) 300-30 00 [facility] Univer s en-codeine 1-25 ity of (TYLENOL 00:00: [place] #3) 300-30 00 Medical mg tablet Branch acetamino 2013-08 Yes Univer s en-codeine 1-25 ity of (TYLENOL 00:00: [place] #3) 300-30 00 [facility] Univer s en-codeine 1-25 ity of (TYLENOL 00:00: [place] #3) 300-30 00 Medical mg tablet Branch acetamino 2013-08 Yes Univer s en-codeine 1-25 ity of (TYLENOL 00:00: [place] #3) 300-30 00 Medical mg tablet Branch acetamino 2013-08 Yes Univer s en-codeine 1-25 ity of (TYLENOL 00:00: [place] #3) 300-30 00 Medical mg tablet Branch acetaminoph 2013-08 Yes Univer s en-codeine 1-25 ity of (TYLENOL 00:00: [place] #3) 300-30 00 Medical mg tablet Branch acetaminoph 2013-08 Yes Univer s en-codeine 1-25 ity of (TYLENOL 00:00: [place] #3) 300-30 00 Medical mg tablet Branch acetamino 2013-08 2020- No Unive rs en-codeine 1-25 04-12 ity of (TYLENOL 00:00: 00:00 [place] #3) 300-30 00 :00 Medical mg tablet Branch Immunizations Ordered Filled Immunization Date Status Comments [facility] e Immunization Name Name Varicella 2019-11-24 [...] y of Vaccine Quad .5 mL 00:00:00 [facility] IM 6+ MO Branch Tdap 2019-09-30 Completed University of 00:00:00 [facility] Influenza Virus 2019-09-30 Completed Universit y of Vaccine Quad .5 mL 00:00:00 [facility] IM 6+ MO Branch Tdap 2019-09-30 Completed University of 00:00:00 [facility] Influenza Virus 2019-09-30 Completed Universit y of Vaccine Quad .5 mL 00:00:00 [facility] IM 6+ MO Branch Tdap 2019-09-30 Completed University of 00:00:00 [facility] Influenza Virus 2019-09-30 Completed Universit y of Vaccine Quad .5 mL 00:00:00 [facility] 6+ MO Branch Tdap 2019-09-30 Completed University of 00:00:00 [facility] Influenza Virus 2019-09-30 Completed Universit y of Vaccine Quad .5 mL 00:00:00 [facility] IM 6+ MO Branch Tdap 2019-09-30 Completed University of 00:00:00 [facility] Influenza Virus 2019-09-30 Completed Universit y of Vaccine Quad .5 mL 00:00:00 [place] [facility] 6+ MO Branch Tdap 2019-09-30 Completed University of 00:00:00 [facility] Influenza Virus 2019-09-30 Completed Universit y of Vaccine Quad .5 mL 00:00:00 [place] [facility] 6+ MO Branch Tdap 2019-09-30 Completed University of 00:00:00 [facility] Influenza Virus 2019-09-30 Completed Universit y of Vaccine Quad .5 mL 00:00:00 [facility] 6+ MO Branch Tdap 2019-09-30 Completed University of 00:00:00 [facility] Influenza Virus 2019-09-30 Completed Universit y of Vaccine Quad .5 mL 00:00:00 [facility] 6+ MO Branch Tdap 2019-09-30 Completed University of 00:00:00 [facility] Influenza Virus 2019-09-30 Completed Universit y of Vaccine Quad .5 mL 00:00:00 [facility] 6+ MO Branch Tdap 2019-09-30 Completed University of 00:00:00 [facility] Influenza Virus 2019-09-30 Completed Universit y of Vaccine Quad .5 mL 00:00:00 [place] [facility] 6+ MO Branch Tdap 2019-09-30 Completed University of 00:00:00 [facility] Influenza Virus 2019-09-30 Completed Universit y of Vaccine Quad .5 mL 00:00:00 [facility] 6+ MO Branch Tdap 2019-09-30 Completed University of 00:00:00 [facility] Influenza Virus 2019-09-30 Completed Universit y of Vaccine Quad .5 mL 00:00:00 [facility] 6+ MO Branch Tdap 2019-09-30 Completed University of 00:00:00 [facility] Influenza Virus 2019-09-30 Completed Universit y of Vaccine Quad .5 mL 00:00:00 [facility] 6+ MO Branch Tdap 2019-09-30 Completed University of 00:00:00 [facility] Influenza Virus 2019-09-30 Completed Universit y of Vaccine Quad .5 mL 00:00:00 [facility] IM 6+ MO Branch Tdap 2019-09-30 Completed University of 00:00:00 [facility] Influenza Virus 2019-09-30 Completed Universit y of Vaccine Quad .5 mL 00:00:00 [facility] IM 6+ MO Branch Tdap 2019-09-30 Completed University of 00:00:00 [facility] Influenza Virus 2019-09-30 Completed Universit y of Vaccine Quad .5 mL 00:00:00 [facility] IM 6+ MO Branch Tdap 2019-09-30 Completed University of 00:00:00 [facility] Influenza Virus 2019-09-30 Completed Universit y of Vaccine Quad .5 mL 00:00:00 [facility] 6+ MO Branch Tdap 2019-09-30 Completed University of 00:00:00 [facility] Influenza Virus 2019-09-30 Completed Universit y of Vaccine Quad .5 mL 00:00:00 [facility] 6+ MO Branch Tdap 2019-09-30 Completed University of 00:00:00 [facility] Influenza Virus 2019-09-30 Completed Universit y of Vaccine Quad .5 mL 00:00:00 [facility] 6+ MO Branch Tdap 2019-09-30 Completed University of 00:00:00 [facility] Influenza Virus 2019-09-30 Completed Universit y of Vaccine Quad .5 mL 00:00:00 [facility] 6+ MO Branch Tdap 2019-09-30 Completed University of 00:00:00 [facility] Influenza Virus 2019-09-30 Completed Universit y of Vaccine Quad .5 mL 00:00:00 [facility] 6+ MO Branch Tdap 2019-09-30 Completed University of 00:00:00 [facility] Influenza Virus 2019-09-30 Completed Universit y of Vaccine Quad .5 mL 00:00:00 [facility] 6+ MO Branch TDAP 2019-09-30 Completed University of 00:00:00 [facility] Influenza Virus 2019-09-30 Completed Universit y of Vaccine Quad .5 mL 00:00:00 [facility] 6+ MO Branch Tdap 2019-09-30 Completed University of 00:00:00 [facility] Influenza Virus 2019-09-30 Completed Universit y of Vaccine Quad .5 mL 00:00:00 [place] [facility] IM 6+ MO Branch Tdap 2019-09-30 Completed University of 00:00:00 [facility] Influenza Virus 2019-09-30 Completed Universit y of Vaccine Quad .5 mL 00:00:00 [facility] IM 6+ MO Branch Tdap 2019-09-30 Completed University of 00:00:00 [facility] Influenza Virus 2019-09-30 Completed Universit y of Vaccine Quad .5 mL 00:00:00 [facility] IM 6+ MO Branch Tdap 2019-09-30 Completed University of 00:00:00 [facility] Vital Signs Vital Name Observation Time Observation Value Comments Source Systolic blood 2020-01-07 14:30:00 108 mm[Hg] Univer sity of pressure [facility] Branch Diastolic blood 2020-01-07 14:30:00 67 mm[Hg] Unive rsity of pressure [facility] Heart rate 2020-01-07 14:30:00 66 /min Universi ty of [facility] Body temperature 2020-01-07 14:30:00 36.56 [facility] Univ ersity of [facility] Branch Respiratory rate 2020-01-07 14:30:00 16 /min Univ ersity of [facility] Branch Body height 2020-01-07 14:30:00 152.4 cm Universi ty of [facility] Branch Body weight 2020-01-07 14:30:00 68.55 kg Universi ty of [place] [facility] BMI 2020-01-07 14:30:00 29.51 kg/m2 Universi ty of [facility] Branch Systolic blood 2019-11-28 20:21:00 112 mm[Hg] Univer sity of pressure [facility] Branch Diastolic blood 2019-11-28 20:21:00 77 mm[Hg] Unive rsity of pressure [facility] Branch Heart rate 2019-11-28 20:21:00 83 /min Universi ty of [place] [facility] Body temperature 2019-11-28 20:21:00 36.56 [facility] Univ ersity of [facility] Branch Respiratory rate 2019-11-28 20:21:00 16 /min Univ ersity of [facility] Branch Body height 2019-11-28 20:21:00 152.4 cm Universi ty of [facility] Branch Body weight 2019-11-28 20:21:00 70.081 kg Universi ty of [place] [facility] BMI 2019-11-28 20:21:00 30.17 kg/m2 Universi ty of [place] [facility] Systolic blood 2019-11-28 20:21:00 112 mm[Hg] Univer sity of pressure [facility] Diastolic blood 2019-11-28 20:21:00 77 mm[Hg] Unive rsity of pressure [facility] Branch Heart rate 2019-11-28 20:21:00 83 /min Universi ty of [facility] Branch Body temperature 2019-11-28 20:21:00 36.56 [facility] Univ ersity of [facility] Branch Respiratory rate 2019-11-28 20:21:00 16 /min Univ ersity of [facility] Branch Body height 2019-11-28 20:21:00 152.4 cm Universi ty of [place] [facility] Body weight 2019-11-28 20:21:00 70.081 kg Universi ty of [facility] Branch BMI 2019-11-28 20:21:00 30.17 kg/m2 Universi ty of [facility] Branch Systolic blood 2019-11-24 12:57:00 117 mm[Hg] Univer sity of pressure [facility] Branch Diastolic blood 2019-11-24 12:57:00 59 mm[Hg] Unive rsity of pressure [facility] Branch Heart rate 2019-11-24 12:57:00 99 /min Universi ty of [facility] Branch Body temperature 2019-11-24 12:57:00 36.44 [facility] Univ ersity of [facility] Branch Respiratory rate 2019-11-24 12:57:00 18 /min Univ ersity of [facility] Oxygen saturation in 2019-11-24 12:57:00 100 /min University of Arterial blood by [facility] Pulse oximetry Branch Body height 2019-11-22 17:18:00 152.4 cm Universi ty of [facility] Body weight 2019-11-22 17:18:00 72.122 kg Universi ty of [place] [facility] BMI 2019-11-22 17:18:00 31.05 kg/m2 Universi ty of [facility] Branch Systolic blood 2019-11-24 12:57:00 117 mm[Hg] Univer sity of pressure [facility] Branch Diastolic blood 2019-11-24 12:57:00 59 mm[Hg] Unive rsity of pressure [facility] Branch Heart rate 2019-11-24 12:57:00 99 /min Universi ty of [facility] Branch Body temperature 2019-11-24 12:57:00 36.44 [facility] Univ ersity of [facility] Respiratory rate 2019-11-24 12:57:00 18 /min Univ ersity of [facility] Oxygen saturation in 2019-11-24 12:57:00 100 /min University Arterial blood by [facility] Pulse oximetry Branch Body height 2019-11-22 17:18:00 152.4 cm Universi ty of [facility] Body weight 2019-11-22 17:18:00 72.122 kg Universi ty of [facility] BMI 2019-11-22 17:18:00 31.05 kg/m2 Universi ty of [facility] Systolic blood 2019-11-18 13:42:00 124 mm[Hg] Univer sity of pressure [facility] Diastolic blood 2019-11-18 13:42:00 70 mm[Hg] Unive rsity of pressure [facility] Heart rate 2019-11-18 13:42:00 79 /min Universi ty of [facility] Body temperature 2019-11-18 13:42:00 36.17 [facility] Univ ersity of [facility] Respiratory rate 2019-11-18 13:42:00 16 /min Univ ersity of [facility] Body height 2019-11-18 13:42:00 152.4 cm Universi ty of [facility] Body weight 2019-11-18 13:42:00 73.057 kg Universi ty of [facility] Branch BMI 2019-11-18 13:42:00 31.46 kg/m2 Universi ty of [facility] Systolic blood 2019-11-18 13:42:00 124 mm[Hg] Univer sity of pressure [facility] Diastolic blood 2019-11-18 13:42:00 70 mm[Hg] Unive rsity of pressure [facility] Heart rate 2019-11-18 13:42:00 79 /min Universi ty of [facility] Body temperature 2019-11-18 13:42:00 36.17 [facility] Univ ersity of [facility] Respiratory rate 2019-11-18 13:42:00 16 /min Univ ersity of [facility] Body height 2019-11-18 13:42:00 152.4 cm Universi ty of [facility] Body weight 2019-11-18 13:42:00 73.057 kg Universi ty of [facility] Branch BMI 2019-11-18 13:42:00 31.46 kg/m2 Universi ty of [place] [facility] Systolic blood 2019-11-11 13:57:00 118 mm[Hg] Univer sity of pressure [facility] Diastolic blood 2019-11-11 13:57:00 69 mm[Hg] Unive rsity of pressure [place] [facility] Heart rate 2019-11-11 13:57:00 82 /min Universi ty of [facility] Body temperature 2019-11-11 13:57:00 36.33 [facility] Univ ersity of [place] [facility] Respiratory rate 2019-11-11 13:57:00 16 /min Univ ersity of [facility] Body height 2019-11-11 13:57:00 152.4 cm Universi ty of [place] [facility] Body weight 2019-11-11 13:57:00 71.697 kg Universi ty of [facility] BMI 2019-11-11 13:57:00 30.87 kg/m2 Universi ty of [facility] Systolic blood 2019-11-11 13:57:00 118 mm[Hg] Univer sity of pressure [facility] Diastolic blood 2019-11-11 13:57:00 69 mm[Hg] Unive rsity of pressure [facility] Heart rate 2019-11-11 13:57:00 82 /min Universi ty of [place] [facility] Body temperature 2019-11-11 13:57:00 36.33 [facility] Univ ersity of [place] [facility] Respiratory rate 2019-11-11 13:57:00 16 /min Univ ersity of [place] [facility] Body height 2019-11-11 13:57:00 152.4 cm Universi ty of [facility] Body weight 2019-11-11 13:57:00 71.697 kg Universi ty of [place] [facility] BMI 2019-11-11 13:57:00 30.87 kg/m2 Universi ty of [facility] Systolic blood 2019-10-27 15:32:00 114 mm[Hg] Univer sity of pressure [facility] Diastolic blood 2019-10-27 15:32:00 66 mm[Hg] Unive rsity of pressure [place] [facility] Heart rate 2019-10-27 15:32:00 83 /min Universi ty of [facility] Body temperature 2019-10-27 15:32:00 36.89 [facility] Univ ersity of [place] [facility] Respiratory rate 2019-10-27 15:32:00 16 /min Univ ersity of [place] [facility] Body height 2019-10-27 15:32:00 152.4 cm Universi ty of [facility] Body weight 2019-10-27 15:32:00 70.308 kg Universi ty of [facility] BMI 2019-10-27 15:32:00 30.27 kg/m2 Universi ty of [facility] Systolic blood 2019-10-13 15:00:00 116 mm[Hg] Univer sity of pressure [facility] Diastolic blood 2019-10-13 15:00:00 67 mm[Hg] Unive rsity of pressure [facility] Heart rate 2019-10-13 15:00:00 84 /min Universi ty of [facility] Body temperature 2019-10-13 15:00:00 36.39 [facility] Univ ersity of [place] [facility] Respiratory rate 2019-10-13 15:00:00 16 /min Univ ersity of [facility] Body height 2019-10-13 15:00:00 152.4 cm Universi ty of [facility] Body weight 2019-10-13 15:00:00 69.31 kg Universi ty of [facility] BMI 2019-10-13 15:00:00 29.84 kg/m2 Universi ty of [facility] Systolic blood 2019-10-02 15:13:00 128 mm[Hg] Univer sity of pressure [facility] Diastolic blood 2019-10-02 15:13:00 71 mm[Hg] Unive rsity of pressure [facility] Heart rate 2019-10-02 15:13:00 81 /min Universi ty of [facility] Body temperature 2019-10-02 15:13:00 36.22 [facility] Univ ersity of [facility] Respiratory rate 2019-10-02 15:13:00 16 /min Univ ersity of [place] [facility] Body height 2019-10-02 15:13:00 152.4 cm Universi ty of [place] [facility] Body weight 2019-10-02 15:13:00 67.586 kg Universi ty of [place] [facility] BMI 2019-10-02 15:13:00 29.10 kg/m2 Universi ty of [facility] Systolic blood 2019-09-30 19:43:00 113 mm[Hg] Univer sity of pressure [facility] Diastolic blood 2019-09-30 19:43:00 67 mm[Hg] Unive rsity of pressure [facility] Heart rate 2019-09-30 19:43:00 91 /min [facility] Body temperature 2019-09-30 19:43:00 36.22 Akua [facility] Respiratory rate 2019-09-30 19:43:00 16 /min [facility] Body height 2019-09-30 19:43:00 152.4 cm [facility] Body weight 2019-09-30 19:43:00 67.189 kg [facility] BMI 2019-09-30 19:43:00 28.93 kg/m2 [facility] Procedures Procedure Date / Time Performing Clinician Source Performed POCT TEST 2020-01-07 14:33:00 Rashid Cha [facility] CONSENT FOR 2020-01-07 05:01:00 Doctor Unassigned, No [facility] CONTRACEPTION Name [facility] CBC WITH DIFFERENTIAL 2019-11-23 09:13:00 Reynold Jones [facility] ARTERIAL CORD GAS 2019-11-22 23:50:00 [facility] VENOUS CORD GAS 2019-11-22 23:49:00 [facility] o f [facility] SECTION 2019-11-22 23:00:00 Fidelia Billings [facility] HEPATITIS B SURFACE 2019-11-22 20:42:00 [facility] ANTIGEN [facility] GALV ONLY - SYPHILIS 2019-11-22 20:42:00 [facility] IGG/IGM [facility] HB ABO GROUPING 2019-11-22 20:02:00 [facility] o f [facility] RHO (D) IMMUNE GLOBULIN 2019-11-22 20:02:00 Reynold Jones [facility] CORONAVIRUS COVID-19 2019-11-22 17:09:00 Fidelia Billings [facility] POCT URINALYSIS 2019-11-18 13:49:00 Carla Rajan [facility] POCT URINALYSIS 2019-11-11 14:00:00 Carla Rajan [facility] POCT URINALYSIS 2019-10-27 17:09:00 Carla Rajan [facility] AUTHORIZATION TO RELEASE 2019-10-09 06:01:00 Doctor Unassigned, No [facility] PHI TO [facility] TDAP VACCINE, >11 YRS, 2019-09-30 20:39:21 Carla Rajan [facility] Medical Branch FLU VACC ([id number]), 6+ 2019-09-30 20:22:55 Carla Rajan [facility] MONTHS, IM, QUAD Medical [place] POCT URINALYSIS W/O 2019-09-30 19:35:[address] Uni versity [facility] SPECIFIC GRAVITY [facility] POCT TEST 2019-09-30 19:34:00 [facility]ENEF[facility] 2019-09-30 19:11:56 Doctor Unassigned, No [facility] Encounters Start End Encounter Admission Attending Care Care Encounter Source Date/Time Date/Time Type Type Clinicians Facility Department ID 2021-06-09 Outpatient [facility] [id number] Univers 17:44:35 ity of [facility] 2020-11-02 2020-11-02 Patient Zander [facility] [id number] Univers 00:00:00 00:00:00 Outreach Declan PRIMARY [id number] i ty of [facility] [id number] [id number] Id dical [address] [place] [address] 2020-01-07 2020-01-07 Office Starla [facility] [id number] Univers 09:23:30 10:10:21 Visit Rashid Kidd 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 ity [facility] [id number] Juan as MATERNAL [id number] Med ical & CHILD [address] [place] [address] 2020-01-07 2020-01-07 Outpatient R STARLA [facility] [id number] Univers 09:00:00 09:00:00 RASHID christie o f [facility] 2020-01-07 2020-01-07 Orders Doctor ESTUARDO [id number] Univers 00:00:00 00:00:00 Only Unassigned, LUKE [id number] ity of [facility] [id number] Juan as [id number] [address] 2019-12-16 2019-12-16 Outpatient R STARLA [facility] [id number] Univers 09:15:00 09:15:00 ROSCHADNDA ity o f [facility] 2019-12-16 2019-12-16 [facility] [id number] Univers 07:34:01 09:03:14 ne Visit Rashid R 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 ity [facility] [id number] Juan as MATERNAL [id number] Med ical & CHILD [address] [place] [address] 2019-12-16 2019-12-16 [facility] [id number] 07:34:01 09:03:14 ne Visit Heydiana Kidd 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 [facility] [id number] MATERNAL [id number] & CHILD [address] [place] [address] 2019-11-28 2019-11-28 Nurse Visit, Qian Nurse [facility] 1.2 .[id number] Univers 14:57:15 15:27:42 Visit Carla Rajan 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 10 ity of [facility] [id number] Juan as MATERNAL [id number] [facility] ical & CHILD [address] [place] [address] 2019-11-28 2019-11-28 Nurse Visit, [facility] [id number] 14:57:15 15:27:42 Visit Qian 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 Nurse [facility] [id number] MATERNAL [id number] & CHILD [address] [place] [address] 2019-11-28 2019-11-28 Outpatient R SATINDER [facility] [id number] Univers 15:00:00 15:00:00 CARLA christie o f [facility] 2019-11-25 2019-11-25 Outpatient R AKINSIPE, [facility] [id number] Univers 09:30:00 09:30:00 CARLA ity o f [facility] 2019-11-25 2019-11-25 Outpatient R AKINSIPE, [facility] [id number] Univers 09:15:00 09:15:00 CARLA ity o [facility] 2019-11-22 2019-11-24 [facility] [id number] [facility] 11:49:00 12:16:00 Encounter Fidelia LUKE [id number] ity of HOSPITAL [id number] Juan as [phone] [address] 2019-11-22 2019-11-24 [facility] [id number] 11:49:00 12:16:00 Encounter Fidelia LUKE [id number] [facility] [id number] [id number] [facility] 2019-11-18 2019-11-18 Routine Akinsipe, [facility] [id number] Univers 08:34:45 08:55:27 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 ity of Visit REGIONAL [id number] Juan as MATERNAL [id number] Med ical & CHILD [address] [place] [address] 2019-11-18 2019-11-18 Routine Akinsipe, [facility] [id number] 08:34:45 08:55:27 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 Visit REGIONAL [id number] MATERNAL [id number] & CHILD [address] [place] [address] 2019-11-18 2019-11-18 Outpatient R AKINSIPE, [facility] [id number] Univers 08:45:00 08:45:00 CARLA ity o f [facility] 2019-11-11 2019-11-11 Routine Akinsipe, [facility] [id number] Univers 08:49:21 09:26:07 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 ity of Visit REGIONAL [id number] Juan as MATERNAL [id number] [facility] & CHILD [address] [place] [address] 2019-11-11 2019-11-11 Routine Akinpe, [facility] [id number] 08:49:21 09:26:07 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 Visit REGIONAL [id number] MATERNAL [id number] & CHILD [address] [place] [address] 2019-11-11 2019-11-11 Outpatient R [place], [facility] [id number] Univers 09:00:00 09:00:00 CARLA ity o f [facility] 2019-10-27 2019-10-27 Routine [facility], [facility] [id number] Univers 09:42:46 12:09:33 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10 ity of Visit REGIONAL 4.2.7.2.686 Juan as MATERNAL [id number] [facility] & CHILD [address] [place] [address] 2019-10-27 2019-10-27 Outpatient R AKINSIPE, [facility] [id number] Univers 09:30:00 09:30:00 CARLA gaoy o oscar [facility] 2019-10-13 2019-10-13 Routine Faculty, Han Basilio [facility] 1.2 .840.114 [id number] Univers 08:47:13 11:29:01 Leandro Neff 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10 ity of Visit REGIONAL 4.2.7.2.686 Juan as MATERNAL [id number] [facility] & CHILD [address] [place] [address] 2019-10-13 2019-10-13 Outpatient R [facility] [id number] Univers 09:00:00 09:00:00 ity of [facility] 2019-10-09 2019-10-09 Orders Doctor MARTE 1.2.840.114 [id number] Univers 00:00:00 00:00:00 Only Unassigned, LUKE 350.1.13.10 ity of [place] [facility] 4.2.7.2.686 Juan as [id number] [facility] [address] [place] 2019-10-02 2019-10-02 Nurse Visit, Qian Nurse [facility] 1.2 .840.114 [id number] Univers 09:02:47 09:32:54 Visit Boom Rajanilola C 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 10 ity of REGIONAL 4.2.7.2.686 Juan as MATERNAL [phone] [facility] ical & CHILD [address] [facility] 2019-10-01 2019-10-01 Radio Operator Ground Lab, Qian [facility] 1.2.840. 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10 ity of REGIONAL 4.2.7.2.686 Juan as MATERNAL [id number] [facility] ical & CHILD [address] [place] [address] 2019-09-30 2019-09-30 Initial Satinder [facility] [id number] [facility] 13:30:37 14:59:32 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10 ity of Visit [facility] 4.2.7.2.686 Juan as MATERNAL [id number] Med ical & CHILD [address] [facility] 2019-09-30 2019-09-30 Orders Doctor ESTUARDO 1.2.840.114 [id number] Univers 00:00:00 00:00:00 Only Unassigned, LUKE 350.1.13.10 ity of [place] [facility] 4.2.7.2.686 Juan as [phone] [address] Results Test Description Test Time Test Comments Results Result Comments Source POCT TEST 2020-01-07 14:33:00 Test Item Value Reference Range Interpretation Comme nts POCT PREG (test code = 1605) Negative On board controls acceptable with C Line (test code = 3574) Yes POCT PREG LOT # (test code = 3575) POCT PREG TEST DATE (test code = 3576) [facility] [id number] 14:33:00 Test Item Value Reference Range Interpretation Comments POCT PREG (test code = 1605) Negative On board controls acceptable with C Yes Line (test code = 3574) POCT PREG LOT # (test code = 3575) POCT PREG TEST DATE (test code = 3576) [facility] CenterGAL[facility] ONLY - SYPHILIS [id number] 15:38:00 Test Item Value Reference Range Interpretation Comments Syphilis IgG/IgM (test Non-reactive Non-reactive code = 96825-1) JOSE RAFAEL (test code = JOSE RAFAEL) Non-reactive - No serologic evidence of T. pallidum infection. Cannot exclude incubating or early syphilis. Submit a second specimen in 2-4 weeks if syphilis is clinically suspected. Equivocal - Further testing to follow. Reactive - Further testing to follow. Lab Interpretation (test Normal code = 30684-0) [facility] CenterCB WITH [id number] 09:57:00 Test Item Value Reference Range Interpretation [...] RDW-SD (test code = 44.9 fL 38.5-49 31151-0) RDW-CV (test code = 13.5 % 11.5-14 788-0) PLT (test code = See_Comment [Automated 777-3) message] The system which generated this result transmit gianna reference range : 135 - 361 10*3/ ?L. The reference range was not u sed to interpret th is result as normal/abnormal . MPV (test code = 11.5 fL 9.4-13.3 67720-3) NRBC/100 WBC (test See_Comment [Automat ed code = 6988767698) message] The system which generated this result transmit gianna reference range : 0.0 - 10.0 /100 WBCs. The reference range was not used to interpret this result as normal/abnormal . NRBC x10^3 (test code <0.01 See_Comment [Auto mated = 2918635742) message] The system which generated this result transmit gianna reference range : 10*3/?L. The reference range was not used to interpret this result as normal/abnormal . GRAN MAT (NEUT) % 82.3 % (test code = 770-8) IMM GRAN % (test code 1.00 % = 0651654308) LYMPH % (test code = 10.2 % 736-9) MONO % (test code = 5.6 % 5905-5) EOS % (test code = 0.5 % 713-8) BASO % (test code = 0.4 % 706-2) GRAN MAT x10^3(ANC) 14.09 10*3/uL 1.5-10.3 H (test code = 7374363197) IMM GRAN x10^3 (test 0.17 10*3/uL 0-0.06 H code = 9058249392) LYMPH x10^3 (test code 1.74 10*3/uL 0.7-7.4 = 731-0) MONO x10^3 (test code 0.96 10*3/uL 0-0.5 H = 742-7) EOS x10^3 (test code = 0.09 10*3/uL 0-0.4 711-2) BASO x10^3 (test code 0.06 10*3/uL 0-0.1 = 704-7) BANDS (test code = Increased A 8556550218) Lab Interpretation Abnormal (test code = 33867-0) [facility] CenterRHO (D) IMMUNE [id number] 04:07:12 Test Item Value Reference Range Interpretation Comments RHIG CANDIDATE? No- see comment Patient i s not a (test code = candidate for R hIg- 5055) Patient is Rh Positive.Perfor med at [facility] Laboratory Services - [facility] Blood [address] [place], [place] [address]Toll Free: [phone] A No. [id number] [facility] CenterARTERIAL CORD [id number] 23:57:00 Test Item Value Reference Range Interpretation Comments BASE EXCESS, CORD (test mEq/L code = 8532075040) AC PH, CORD (BEAKER) 7.18-7.38 (test code = 3775679868) PC02, CORD (test code = See_Comment H [Au tomated message] 5159104206) The system [employer] generated this result transmitted ref erence range: 32 - 66 mmHg. The reference r devin was not used to interpret this result as normal/abnor mal. PO2, CORD (test code = See_Comment [Aut omated message] 4953855291) The system [employer] generated this result transmitted ref erence range: 10 - 30 mmHg. The reference r devin was not used to interpret this result as normal/abnor mal. BICARBONATE, CORD (test See_Comment H [Au tomated message] code = 1517737328) The syste m which generated this result transmitted ref erence range: 17 - 27 mEq/L. The reference r devin was not used to interpret this result as normal/abnor mal. Lab Interpretation (test Abnormal code = 14281-3) [facility] CenterVENOUS CORD [id number] 23:52:00 Test Item Value Reference Range Interpretation Comments VENOUS BASE EXCESS, CORD mEq/L (test code = 8974975110) VENOUS PH, CORD (test 7.25-7.45 code = 6849296340) VENOUS PC02, CORD (test See_Comment H [Au tomated message] code = 6740574356) The syste m which generated this result transmitted ref erence range: 27 - 49 mmHg. The reference r devin was not used to interpret this result as normal/abnor mal. VENOUS PO2, CORD (test See_Comment [Aut omated message] code = 9821904795) The syste m which generated this result transmitted ref erence range: 17 - 41 mmHg. The reference r devin was not used to interpret this result as normal/abnor mal. VENOUS BICARBONATE, CORD See_Comment [A utomated message] (test code = 5637273321) The system which generated this result transmitted ref erence range: 12 - 29 mEq/L. The reference r devin was not used to interpret this result as normal/abnor mal. Lab Interpretation (test Abnormal code = 62001-4) [facility] CenterHepatitis B Surface [id number] 22:06:00 Test Item Value Reference Range Interpretation Comments HBsAg Semi-Quantitative (test code = Negative Negative 5195-3) [facility] CenterType and Screen - ONCE [id number] 21:39:44 Test Item Value Reference Range Interpretation Comments ABO & RH (test code O POSITIVE Performe d at [facility] = 20) Laboratory Serv [facility] Blood [facility]3 [facility] [address]Rrlo Free: [phone] A No. [id number] IAT (test code = Negative Performed a t [facility] 1185) Laboratory Serv [facility] Blood [facility]3 [facility] [address]Vnhh Free: [phone] A No. [id number] [facility] CenterCORONAVIRUS COVID-19 [id number] 18:00:00 Test Item Value Reference Range Interpretation Comments SARS-CoV-2 (test code = Not Detected Not Detected 42286-6) JOSE RAFAEL (test code = JOSE RAFAEL) ID NOW COVID-19 Assay is an isothermal nucleic acid amplification test intended for the qualitative detection of nucleic acid from SARS-CoV-2 viral RNA in nasopharyngeal ([employer]) specimens. It is used under Emergency Use [...] indicated. Lab Interpretation Normal (test code = 49134-9) [facility] URINALYSIS W SPECIFIC [id number] 13:49:00 Test Item Value Reference Range Interpretation [...] POCT U APPEAR (test code = 3267) [facility] URINALYSIS W SPECIFIC [id number] 14:00:00 Test Item Value Reference Range Interpretation [...] POCT U APPEAR (test code = 3267) [facility] URINALYSIS W SPECIFIC [id number] 14:00:00 Test Item Value Reference Range Interpretation [...] POCT U APPEAR (test code = 3267) [facility] URINALYSIS W SPECIFIC [id number] 17:09:00 Test Item Value Reference Range Interpretation [...] POCT U APPEAR (test code = 3267) [facility] [id number] 19:35:00 Test Item Value Reference Range Interpretation [...] code = 3257) Neg Negative - Negative [facility] [id number] 19:35:00 Test Item Value Reference Range Interpretation [...] code = 3257) Neg Negative - Negative [facility] [id number] 19:35:00 Test Item Value Reference Range Interpretation [...] code = 3257) Neg Negative - Negative [facility] [id number] 19:35:00 Test Item Value Reference Range Interpretation [...] Negative - Negative [facility] CenterPOCT [id number] 19:34:00 Test Item Value Reference Range Interpretation Comments POCT PREG (test code = 1605) Positive On board controls acceptable with C Yes Line (test code = 3574) POCT PREG LOT # (test code = 3575) POCT PREG TEST DATE (test code = 3576) [facility] CenterPOCT [id number] 19:34:00 Test Item Value Reference Range Interpretation Comments POCT PREG (test code = 1605) Positive On board controls acceptable with C Yes Line (test code = 3574) POCT PREG LOT # (test code = 3575) POCT PREG TEST DATE (test code = 3576) [facility] CenterPO[facility] [id number] 19:34:00 Test Item Value Reference Range Interpretation Comments POCT PREG (test code = 1605) Positive On board controls acceptable with C Yes Line (test code = 3574) POCT PREG LOT # (test code = 3575) POCT PREG TEST DATE (test code = 3576) [facility] CenterPOCT [id number] 19:34:00 Test Item Value Reference Range Interpretation Comments POCT PREG (test code = 1605) Positive On board controls acceptable with C Yes Line (test code = 3574) POCT PREG LOT # (test code = 3575) POCT PREG TEST DATE (test code = 3576) [facility]
[2022-09-19] MEDS ORDERED: NA CHLORIDE 0.9% 500 ML ONE (16:17)
[2022-09-19] MEDS ORDERED: DIPHENHYDRAMINE 50 MG/ML VIAL ONE (16:17)
[2022-09-19] MEDS ORDERED: METHYLPREDNISOLONE 125 MG INJ ONE (16:17)
--- NOTE | 2022-09-19 17:12 | EDPHYS ---
Physician Documentation [facility] Name: Atiya Castellanos Age: 22 yrs Sex: Female : 2000 Arrival Date: 09/19/2022 Time: 15:51 Bed 5 Private MD: ED Physician Jennifer Lechuga HPI: 09/19 17:07 This 22 yrs old Female presents to ER via Ambulatory with complaints of Allergic sp3 Reaction. 17:07 22-year-old female with history of bipolar disease and allergy to unknown substance sp3 causing prior allergic reaction now presents to the ED for repeat allergic reaction. Patient had to use her EpiPen today stating that her reaction was affecting her breathing. The EpiPen was given to her by the ED on her last visit. She has not seen an hot man which I have urged her to do so. She denies any fever, URI symptoms, neck pain, back pain, chest pain, current shortness of breath, abdominal pain, nausea, vomiting, diarrhea, any other symptoms. She also had mild hives diffuse across her body. She denies any new substances, new food, or any possible allergens that may cause this.. Historical: - Allergies: 16:02 Milk/dairy products; ld1 16:02 Soy; ld1 - PMHx: 16:02 Bipolar disorder; ld1 - PSHx: 16:02 section; eye; ld1 - Immunization history:: Adult Immunizations up to date, Client reports receiving the 2nd dose of the Covid vaccine. - Social history:: Smoking status: Patient denies any tobacco usage or history of. Patient/guardian denies using alcohol. ROS: 17:09 Constitutional: Negative for fever, chills, and weight loss, Eyes: Negative for injury, sp3 pain, redness, and discharge, Neck: Negative for injury, pain, and swelling, Cardiovascular: Negative for chest pain, palpitations, and edema, Abdomen/GI: Negative for abdominal pain, nausea, vomiting, diarrhea, and constipation, Back: Negative for injury and pain, MS/Extremity: Negative for injury and deformity, Skin: Negative for injury, rash, and discoloration, Neuro: Negative for headache, weakness, numbness, tingling, and seizure, Psych: Negative for depression, anxiety, suicide ideation, homicidal ideation, and hallucinations, Endocrine: Negative for neck swelling, polydipsia, polyuria, polyphagia, and marked weight changes, Hematologic/Lymphatic: Negative for swollen nodes, abnormal bleeding, and unusual bruising. 17:09 All other systems are negative. Exam: 17:10 Constitutional: This is a well developed, well nourished patient who is awake, alert, sp3 and in no acute distress. Head/Face: Normocephalic, atraumatic. Eyes: Pupils equal round and reactive to light, extra-ocular motions intact. Lids and lashes normal. Conjunctiva and sclera are non-icteric and not injected. Cornea within normal limits. Periorbital areas with no swelling, redness, or edema. ENT: Nares patent. No nasal discharge, no septal abnormalities noted. External auditory canals are clear. Oropharynx with no redness, swelling, or masses, exudates, or evidence of obstruction, uvula midline. Mucous membranes moist. Neck: Trachea midline, no thyromegaly or masses palpated, and no cervical lymphadenopathy. Supple, full range of motion without nuchal rigidity, or vertebral point tenderness. No Meningismus. Chest/axilla: Normal chest wall appearance and motion. Nontender with no deformity. No lesions are appreciated. Cardiovascular: Regular rate and rhythm with a normal S1 and S2. No gallops, murmurs, or rubs. Normal PMI, no JVD. No pulse deficits. Respiratory: Lungs have equal breath sounds bilaterally, clear to auscultation and percussion. No rales, rhonchi or wheezes noted. No increased work of breathing, no retractions or nasal flaring. Abdomen/GI: Soft, non-tender, with normal bowel sounds. No distension or tympany. No guarding or rebound. No evidence of tenderness throughout. Back: No spinal tenderness. No costovertebral tenderness. Full range of motion. MS/ Extremity: Pulses equal, no cyanosis. Neurovascular intact. Full, normal range of motion. Neuro: Awake and alert, GCS 15, oriented to person, place, time, and situation. Cranial nerves II-XII grossly intact. Motor strength 5/5 in all extremities. Sensory grossly intact. Cerebellar exam normal. Normal gait. 17:10 Skin: Mild urticaria diffuse.. Vital Signs: 16:00 BP 134 / 68; Pulse 86; Resp 18; Temp 98.1(O); Pulse Ox 97% on R/A; Weight 61.23 kg; ld1 Height 5 ft. 0 in. (152.40 cm); Pain 0/10; 16:06 BP 111 / 58; Pulse 83; Resp 16; Pulse Ox 99% ; ko1 16:54 BP 117 / 62; Pulse 84; Resp 16; Pulse Ox 99% ; ko1 16:00 Body Mass Index 26.37 (61.23 kg, 152.40 cm) ld1 MDM: 16:10 Patient medically screened. sp3 17:10 Data reviewed: vital signs, nurses notes. ED course: 22-year-old female with acute sp3 allergic reaction to unknown substance. I have given her Solu-Medrol 125 mg IV and Benadryl IV after which she has significant improvement. I will discharge her home on p.o. prednisone and urged her to follow-up with hot man. She states she is having a hard time given her Medicaid. I have informed her that going to use it is her best opportunity and again urged her to do so in expedited fashion. She acknowledged and understood all instructions and has no further questions at this time.. Administered Medications: 16:24 Drug: SOLU-Medrol (methylPrednisoLONE) 125 mg Route: IVP; Site: left antecubital; ko1 16:24 Drug: Benadryl (diphenhydrAMINE) 12.5 mg Route: IVP; Site: left antecubital; ko1 16:24 Drug: NS 0.9% 500 ml Route: IV; Rate: bolus; Site: left antecubital; ko1 Disposition Summary: 09/19/22 17:12 Discharge Ordered Location: Home sp3 Condition: Stable sp3 Diagnosis - Allergic urticaria sp3 Followup: sp3 - With: Abdi Núñez MD - When: Upon discharge from the Emergency Department - Reason: Further diagnostic work-up Discharge Instructions: - Discharge Summary Sheet sp3 - Hives sp3 Forms: - Medication Reconciliation Form sp3 - Thank You Letter sp3 - Antibiotic Education sp3 - Prescription Opioid Use sp3 Prescriptions: - Prednisone 20 mg Oral Tablet - take 2 tablets by ORAL route once daily for 5 days; 10 tablet; Refills: 0, sp3 Product Selection Permitted - EpiPen 0.3 mg/0.3 mL Injection auto-injector - inject 0.3 milliliter by INTRAMUSCULAR route as directed As needed as needed jmm for anaphylaxis; 1 Pen Needle; Refills: 0, Product Selection Permitted Signatures: Elizabeth Douglass, RN RN ld1 Jennifer Lechuga MD MD sp3 Noni Cardoza, RN RN ko1
--- NOTE | 2022-09-19 17:12 | ER ---
Nurse's Notes [facility] Name: Atiya Castellanos Age: 22 yrs Sex: Female : 2000 Arrival Date: 09/19/2022 Time: 15:51 Bed 5 Private MD: Diagnosis: Allergic urticaria Presentation: 09/19 16:00 Chief complaint: Patient states: Woke up this morning with Hives - used my Epi pen at ld1 1330 because my throat began to swell. Coronavirus screen: At this time, the client does not indicate any symptoms associated with coronavirus-19. Ebola Screen: No symptoms or risks identified at this time. Onset: The symptoms/episode began/occurred acutely. Anaphylaxis evaluation, no signs or symptoms of anaphylaxis were noted. Initial Sepsis Screen: Does the patient meet any 2 criteria? No. Patient's initial sepsis screen is negative. Does the patient have a suspected source of infection? No. Patient's initial sepsis screen is negative. Risk Assessment: Do you want to hurt yourself or someone else? Patient reports no desire to harm self or others. Onset of symptoms. 16:00 Method Of Arrival: Ambulatory ld1 16:00 Acuity: CHRIS 4 ld1 Triage Assessment: 16:02 General: Appears in no apparent distress. comfortable, Behavior is calm, cooperative, ld1 appropriate for age. Pain: Denies pain. EENT: No signs and/or symptoms were reported regarding the EENT system. Neuro: Level of Consciousness is awake, alert, obeys commands, Oriented to person, place, time, situation. Cardiovascular: Capillary refill < 3 seconds Patient's skin is warm and dry. Respiratory: Airway is patent Respiratory effort is even, unlabored, Pt reports throat swelling prior to epi shot.l. GI: Abdomen is flat, non-distended. : No signs and/or symptoms were reported regarding the genitourinary system. Derm: No signs and/or symptoms reported regarding the dermatologic system. Musculoskeletal: No signs and/or symptoms reported regarding the musculoskeletal system. Historical: - Allergies: 16:02 Milk/dairy products; ld1 16:02 Soy; ld1 - PMHx: 16:02 Bipolar disorder; ld1 - PSHx: 16:02 section; eye; ld1 - Immunization history:: Adult Immunizations up to date, Client reports receiving the 2nd dose of the Covid vaccine. - Social history:: Smoking status: Patient denies any tobacco usage or history of. Patient/guardian denies using alcohol. Screenin:06 [facility] ED Fall Risk Assessment (Adult) History of falling in the last 3 months, ko1 including since admission No falls in past 3 months (0 pts) Confusion or Disorientation No (0 pts) Intoxicated or Sedated No (0 pts) Impaired Gait No (0 pts) Mobility Assist Device Used No (0 pt) Altered Elimination No (0 pt) Score/Fall Risk Level 0 - 2 = Low Risk Oriented to surroundings, Maintained a safe environment, Educated pt \T\ family on fall prevention, incl call for assistance when getting out of bed, Assessed \T\ reinforced patient's understanding of fall precautions, Provided non-skid footwear, Hourly rounding (assess needs \T\ fall precautionary measures) done, Used ambulatory aids as needed (educated on \T\ assisted with), Used gait belt as appropriate. Abuse screen: Denies threats or abuse. Denies injuries from another. Nutritional screening: No deficits noted. Tuberculosis screening: No symptoms or risk factors identified. Assessment: 16:06 General: Appears in no apparent distress. uncomfortable, Behavior is cooperative, ko1 appropriate for age, anxious. Pain: Denies pain. Neuro: No deficits noted. Cardiovascular: No deficits noted. Respiratory: Airway is patent Breath sounds are clear bilaterally. GI: No deficits noted. : No deficits noted. EENT: No deficits noted. Derm: Rash noted that is red, raised. Musculoskeletal: No deficits noted. Vital Signs: 16:00 BP 134 / 68; Pulse 86; Resp 18; Temp 98.1(O); Pulse Ox 97% on R/A; Weight 61.23 kg; ld1 Height 5 ft. 0 in. (152.40 cm); Pain 0/10; 16:06 BP 111 / 58; Pulse 83; Resp 16; Pulse Ox 99% ; ko1 16:54 BP 117 / 62; Pulse 84; Resp 16; Pulse Ox 99% ; ko1 16:00 Body Mass Index 26.37 (61.23 kg, 152.40 cm) ld1 ED Course: 15:51 Patient arrived in ED. am2 15:58 Jennifer Lechuga MD is Attending Physician. sp3 16:01 Noni Cardoza, RN is Primary Nurse. ko1 16:02 Triage completed. ld1 16:02 Arm band placed on right wrist. ld1 16:06 Patient has correct armband on for positive identification. Placed in gown. Bed in low ko1 position. Call light in reach. Side rails up X 1. Pulse ox on. NIBP on. 16:25 Inserted saline lock: 22 gauge in left antecubital area, using aseptic technique. ko1 17:11 Abdi Núñez MD is Referral Physician. sp3 17:19 No provider procedures requiring assistance completed. IV discontinued, intact, ko1 bleeding controlled, No redness/swelling at site. Pressure dressing applied. Administered Medications: 16:24 Drug: SOLU-Medrol (methylPrednisoLONE) 125 mg Route: IVP; Site: left antecubital; ko1 16:24 Drug: Benadryl (diphenhydrAMINE) 12.5 mg Route: IVP; Site: left antecubital; ko1 16:24 Drug: NS 0.9% 500 ml Route: IV; Rate: bolus; Site: left antecubital; ko1 Medication: 17:19 VIS not applicable for this client. ko1 Outcome: 17:12 Discharge ordered by . sp3 17:19 Discharged to home ambulatory, with family. ko1 17:19 Condition: improved 17:19 Discharge instructions given to patient, family, Instructed on discharge instructions, follow up and referral plans. medication usage, Demonstrated understanding of instructions, follow-up care, medications, Prescriptions given X 2. 17:20 Patient left the ED. ko1 Signatures: Karen Leyva am2 Elizabeth Douglass, RN RN ld1 Jennifer Lechuga MD MD sp3 Noni Cardoza, RN RN ko1
[2022-09-19 17:33] VITALS: TEMP 98.1
[2022-09-19 17:39] VITALS: BP 111/58; O2SAT 99
== END 2022-09-19 17:20 | disposition home or self-care (01) ==
LOC: ER 15:49
DX: L50.0 Allergic urticaria (principal); Z91.011 Allergy to milk products; Z91.018 Allergy to other foods
CPT/HCPCS: J1200; J7040; J2930

== ENCOUNTER 2023-02-06 08:33 | Emergency (ER) | payer OTHER ==
--- OUTSIDE RECORDS SUMMARY | 2023-02-06 08:42 | XMS REPORT | Continuity of Care Document ---
:2000 Author Organization [facility] t Address [address] [place] [address] [address] [place] [address] Care Team Providers Name Role Phone ULYSSES PERERA Micheal Primary Care Physician Unavailable RUDDY COLBERT Attending Clinician Unavailable RUDDY COLBERT Attending Clinician Unavailable Brittni Martínez RN Attending Clinician Unavailable Doctor Unassigned, [place] Attending Clinician Unavailable RASHID CHA Attending Clinician Unavailable Declan Fermin DO Attending Clinician Rashid Moses Attending Clinician Visit, Qian Nurse Attending Clinician Unavailable Carla Ramos Attending Clinician [phone] CARLA RAJAN Attending Clinician Unavailable Fidelia Billings MD Attending Clinician Faculty, Han Marquez Attending Clinician Unavailable Leandro Neff MD Attending Clinician Ultrasound, Ayden Attending Clinician Unavailable Lab, Qian Attending Clinician Unavailable Fidelia Billings MD Admitting Clinician Payers Payer Name Policy Type Policy Number Effective Date Expiration Date Belinda [employer] [id number] 2019 HEALTH 00:00:00 Problems Condition Condition Condition Status Onset Resolution Last Treating Co mments Source Name Details Category Date Date Treatment Clinician Date Encounter Encounter Disease Active Uni vers for IUD for IUD 4-04 [place] [facility] Disease Active U nivers for for 3-31 ity of control control 00:00: [place] regarding regarding [facility] intrauteri intrauteri Br anch ne device ne device (IUD) (IUD) Nexplanon Nexplanon Disease Active Uni vers removal removal 3-31 ity of 00:00: [address] Disease Active U nivers care and care and 5-05 ity [place] examin[place] examin[place] Medical immediatel immediatel Br anch y after y after delivery delivery BMI BMI Disease Active Univers 30.0-30.9, 30.0-30.9, 4-11 it y of adult adult 00:00: [address] 37 weeks 37 weeks Disease Active Unive rs gestation gestation 4-11 ity of of of 00:00: [place] 00 [facility] Branch Chlamydia Chlamydia Disease Active Overview: Univers infection infection -19 Formattin i ty of during during 00:00: g of this [place] 00 note [facility] might be Branch different from the original. Pending MICHAEL -neg Gonorrhea Gonorrhea Disease Active Overview: Univers in in -19 Formattin ity of 00:00: [place] of this [place] 00 note Medical might be Branch different from the original. MICHAEL at next visit -neg Susceptibl Susceptibl Disease Active Overview : Univers e to e to 2-19 Formattin ity of varicella varicella 00:00: [place] of this [place] (non-immun (non-immun 00 note Me dical e), e), might be Branch currently currently different from the original. Address pp Supervisio Supervisio Disease Active U nivers n of n of 2-18 ity of high-risk high-risk 00:[place] [facility] with with Branch insufficie insufficie nt nt care care Over Over Disease Active 2020- Univers weight weight 2-18 ity of 00:00: Medical Branch Multiparit Multiparit Disease Active 2020-0 U nivers y y 2-18 ity of 00:00: Medical Branch History of History of Disease Active 2020-0 Overview : Univers bipolar bipolar 2-18 Formattin ity o f disorder disorder 00:00: g of this [place] 00 note Medical might be Branch different from the original. Not on meds x1 year History of History of Disease Active 2020-0 Overview : Univers depression depression 2-18 Formattin ity of 00:00: g of this note Medical might be Branch different from the original. Not on meds x1 year History of History of Disease Active 2020- Overview : Univers anxiety anxiety 2-18 Formattin ity o f 00:00: g of this note Medical might be Branch different from the original. Not on meds x1 year History of History of Disease Active 2020-0 Overview : Univers 2-18 Formattin ity o f delivery delivery 00:00: g of this [place] 00 note Medical might be Branch different from the original. Reports delivery at 31weeks ROR requested History of History of Disease Active 2020-0 U nivers ADHD ADHD 2-18 ity of 00:00: Medical Branch Family Family Disease Active 2020-0 Overview: Univer s history of history of 2-18 Formattin ity of autism autism 00:00: g of this note Medical might be Branch different from the original. Reports cousins History of History of Disease Active 2020-0 Overview : Univers polyhydram polyhydram 2-18 Formattin ity of nios nios 00:00: g of this note Medical might be Branch different from the original. Reports delivery at 31 weeks History of History of Disease Active 2020-0 U nivers ADHD ADHD 2-18 ity of 00:00: Medical Branch BMI BMI Disease Active 2020-0 Univers 29.0-29.9, 29.0-29.9, 2-18 it y of adult adult 00:00: [place] Medical Branch Allergies, Adverse Reactions, Alerts Allergy Allergy Status Severity Reaction(s) Onset Inactive Treating Comm ents Source Name Type Date Date Clinician Bee Propensi Active Anaphylaxis 2020-0 Uni vers Sting / ty to 2-18 ity of [place] adverse 00:00: [place] reaction 00 Medical s Branch BEE DRUG Active Anaphylaxis Unive rs STING / INGREDI -18 ity of VENOM 00:00: [place] 00 Medical Branch CASEIN DRUG Active Other-Cmnt Univer s INGREDI 2- ity of 00:00: [place] 00 Medical Branch Casein Propensi Active Other - See Uni vers ty to comments 2- ity of adverse 00:00: [place] reaction Medical s Branch Milk Propensi Active Other - See [...] 01-02 ity of 00:00: [place] 00 Medical [place] Social History Social Habit Start Date Stop Date Quantity Comments Source ASSERTION 2019-03-20 [place] of 00:00:00 [facility] Alcohol intake 2022-11-15 2022-11-15 Ex-drinker [place] of 00:00:00 00:00:00 (finding) [facility] Exposure to 2022-10-31 2022-11-10 Not sure [facility] SARS-CoV-2 00:00:00 12:18:00 [facility] (event) [place] Tobacco use and 2022-11-10 2022-11-10 Smokeless tobacco Un iversity of exposure 00:00:00 00:00:00 non-user [facility] Education 2019-11-22 2019-11-22 11 University of 00:00:00 00:00:00 [facility] Tobacco Comment 2013-06-10 2013-06-10 mom smokes Universit y of 00:00:00 00:00:00 outside [facility] Sex Assigned At [birth year] Universit y of 00:00:00 00:00:00 [facility] Smoking Status Start Date Stop Date Source Never smoked tobacco [facility] Medications Ordered Filled Start Stop Current Ordering Indication Dosage Frequency Signature Comments Components Source Medication Medication Date Date Medication? Clinician (SIG) Name Name doxycycline 2022- Yes [id number] 100mg Take 1 Univers monohydrate 4-14 capsule by i ty of 100 mg 00:00: 04:59 mouth in [place] capsule 00 :00 the Medical morning Branch and 1 capsule in the evening. Do all this for 7 days. doxycycline 2022- Yes [id number] 100mg Take 1 Univers monohydrate 4-14 capsule by i ty of 100 mg 00:00: 04:59 mouth in [place] capsule 00 :00 the Medical morning Branch and 1 capsule in the evening. Do all this for 7 days. doxycycline 2022- Yes [id number] 100mg Take 1 Univers monohydrate 4-14 capsule by i ty of 100 mg 00:00: 04:59 mouth in [place] capsule 00 :00 the Medical morning Branch and 1 capsule in the evening. Do all this for 7 days. doxycycline 2022- Yes [id number] 100mg Take 1 Univers monohydrate 11-16-14 capsule by i ty of 100 mg 00:00: 04:59 mouth in [place] capsule 00 :00 the Medical morning Branch and 1 capsule in the evening. Do all this for 7 days. levonorgest 2022- No [id number] 1{devi Univers reL 11-15-05 e} ity of (MIRENA) 21:45: 20:46 [place] IUD 1 00 :00 [employer] Branch levonorgest 2022- No [id number] 1{devi 1 Device, Univers reL 11-15-05 e} Intrauteri ity of (MIRENA) 21:45: 20:46 ne, ONCE, [place] IUD 1 00 :00 1 dose, On [employer] 11/15/22 Branch at 1645, Routine levonorgest 2022- No [id number] 1{devi Univers reL 11-15-05 e} ity of (MIRENA) 21:45: 20:46 [place] IUD 1 00 :00 [employer] Branch levonorgest 2022- No [id number] 1{devi 1 Device, Univers reL 11-15-05 e} Intrauteri ity of (MIRENA) 21:45: 20:46 ne, ONCE, [place] IUD 1 00 :00 1 dose, On [employer] 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 Repeat dose at 0700 am on the morning of IUD insertion for cervical softening; not for abortive purposes. miSOPROStoL Yes [id number] Take 1 Univers 200 mcg 4-04 tablet, by ity of tablet 00:00: mouth, at [place] [address] bedtime Medical the night Branch before IUD insertion procedure. Repeat dose at 0700 am on the morning of IUD insertion for cervical softening; not for abortive purposes. miSOPROStoL 2022- No [id number] Take 1 Univers 200 mcg 4-04 04-05 tablet, by ity o f tablet 00:00: 00:00 mouth, at [place] 00 :00 bedtime Medical the night Branch before IUD insertion procedure. Repeat dose at 0700 am on the morning of IUD insertion for cervical softening; not for abortive purposes. miSOPROStoL No [id number] Take 1 Univers 200 mcg 4-04 04-05 tablet, by ity o f tablet 00:00: 00:00 mouth, at [place] 00 :00 bedtime Medical the night Branch before IUD insertion procedure. Repeat dose at 0700 am on the morning of IUD insertion for cervical softening; not for abortive purposes. etonogestre 2019- No [id number] 68mg Univers l 5-27 05-27 ity of (NEXPLANON) 16:00: 14:55 [place] implant 68 00 :00 Medical mg Branch etonogestre 2019- No [id number] 68mg 68 mg, Univers l 5-27 05-27 Subdermal, ity of (NEXPLANON) 16:00: 14:55 ONCE NOW, [place] implant 68 00 :00 1 dose, Medica l mg Wed Branch 01/07/20 at 1100, Routine
Use approved by: PH[employer]GR[employer]IN[employer] CURATOR etonogestre 2019- No [id number] 68mg Univers l 5-27 05-27 ity of (NEXPLANON) 16:00: 14:55 [place] implant 68 00 :00 Medical mg Branch etonogestre 2020- No [id number] 68mg 68 mg, Univers l 01-06 Subdermal, ity of (NEXPLANON) 16:00: 14:55 ONCE NOW, [place] implant 68 00 :00 1 dose, Medica l mg Wed Branch 01/07/20 at 1100, Routine
Use approved by: PH[employer]GR[employer] CURATOR lisdexamfet 2019- No 50mg Take 50 mg Univers amine 11-22 by mouth ity of (VYVANSE) 12:42: 00:00 every [place] 50 mg 10 :00 morning. Medical capsule [place] ARIPiprazol 2019- No 2mg Take 2 mg Univers e (ABILIFY) 11-22 by mouth ity of 2 mg tablet 12:42: 00:00 daily. [place] 10 :00 Medical [place] human Yes .5mL 0.5 mL, Univers papillomav 11-22 Intramuscu ity of vac,9-migel(P 12:26: lar, [place] F) 12 ONCE-PRIOR Medical (GARDASIL-9 TO [place] ) syringe DISCHARGE, 0.5 mL 1 dose, Starting 11/23/19 at 0726, Until Discontinu ed, Routine, Give vaccine prior to discharge varicella 2020- No .5mL 0.5 mL, Univ ers virus 11-2213 Subcutaneo ity of vaccine 12:26: 16:35 , [place] live 12 :00 ONCE-PRIOR Medical (VARIVAX TO [place] (PF)) DISCHARGE, injection 1 dose, 0.5 mL Starting 11/23/19 at 0726, Until Discontinu ed, Routine, Give vaccine prior to discharge rho(D) Yes 300ug 300 mcg, Univer s immune 12 Intramuscu ity of globulin 03:56: lar, ONCE, [place] (RHOGAM) 35 For 1 Medical syringe 300 dose, Branch mcg Conditiona l, Routine simethicone Yes 160mg 160 mg, Un dustin (GAS RELIEF 12 Oral, ity of (SIMETHICON 03:56: PC+HSPRN, T [...] ed, Routine, Nausea and Vomiting (N/V) bisacodyL 2019-0 Yes 10mg 10 mg, Univer s (DULCOLAX) 4-12 Rectal, ity of suppository 03:56: QDAILYPRN, [place] 10 mg 27 Starting Medical Sat Branch 11/22/19 at 2256, Until Discontinu ed, Routine, Constipati on docusate 2019-0 Yes 240mg 240 mg, Unive rs calcium 4-12 Oral, ity of (SURFAK) 03:56: QDAILYPRN, [place] capsule 240 27 Starting Medi ashley mg Sat Branch 11/22/19 at 2256, Until Discontinu ed, Routine, Constipati on magnesium 2019-0 Yes 30mL 30 mL, Univer s hydroxide 4-12 Oral, ity of (MILK OF 03:56: QDAILYPRN, [place] MAGNESIA) 27 Starting Medica l 400 mg/5 mL Sat Branch suspension 11/22/19 at 30 mL 2256, Until Discontinu ed, Routine, Constipati on naloxone 0 2020- No .4mg 0.4 mg, Unive rs (NARCAN) 12 04-14 Slow IV ity of injection 00:13: 00:12 Push, PRN [place] 0.4 mg 34 :34 - SEE Medical INSTRUCTIO Branch NS, Starting 11/22/19 at 1913, Until 11/24/19 at 1912, Routine, Analgesia Recovery 2019-0 Yes [id number] 1{tbl} Take 1 Univers vitamin 4-12 tablet by ity of w/FA tablet 00:00: mouth [place] 00 daily. Medical Branch docusate 2020-0 Yes [id number] 240mg Take 1 U nivers calcium 240 4-12 capsule by it y of mg capsule 00:00: mouth once [place] 00 daily as Medical needed for Branch Constipati on. ferrous 2020-0 Yes [id number] 325mg Take 1 Un dustin sulfate 325 4-12 tablet by ity of mg (65 mg 00:00: mouth 2 [place] iron) 00 (two) Medical tablet times Branch daily. ibuprofen 2020-0 Yes [id number] 600mg Take 1 Univers 600 mg 4-12 tablet by ity of tablet 00:00: mouth [place] 00 every 6 Medical (six) Branch hours as needed (Pain). Take with food or milk. 2020-0 Yes [id number] 1{tbl} Take 1 Univers vitamin 4-12 tablet by ity of w/FA tablet 00:00: mouth [place] 00 daily. Medical Branch docusate 2020-0 Yes [id number] 240mg Take 1 U nivers calcium 240 4-12 capsule by it y of mg capsule 00:00: mouth once [place] 00 daily as Medical needed for Branch Constipati on. ferrous 2020-0 Yes [id number] 325mg Take 1 Un dustin sulfate 325 4-12 tablet by ity of mg (65 mg 00:00: mouth 2 [place] iron) 00 (two) Medical tablet times Branch daily. ibuprofen 2020-0 Yes [id number] 600mg Take 1 Univers 600 mg 4-12 tablet by ity of tablet 00:00: mouth [place] 00 every 6 Medical (six) Branch hours as needed (Pain). Take with food or milk. 2020-0 Yes [id number] 1{tbl} Take 1 Univers vitamin 4-12 tablet by ity of w/FA tablet 00:00: mouth [place] 00 daily. Medical Branch docusate 2020-0 Yes [id number] 240mg Take 1 U nivers calcium 240 4-12 capsule by it y of mg capsule 00:00: mouth once [place] 00 daily as Medical needed for Branch Constipati on. ferrous 2020-0 Yes [id number] 325mg Take 1 Un dustin sulfate 325 4-12 tablet by ity of mg (65 mg 00:00: mouth 2 [place] iron) 00 (two) Medical tablet times Branch daily. ibuprofen 2020-0 Yes [id number] 600mg Take 1 Univers 600 mg 4-12 tablet by ity of tablet 00:00: mouth [place] 00 every 6 Medical (six) Branch hours as needed (Pain). Take with food or milk. 2020-0 Yes [id number] 1{tbl} Take 1 Univers vitamin 4-12 tablet by ity of w/FA tablet 00:00: mouth [place] 00 daily. Medical Branch docusate 2020-0 Yes [id number] 240mg Take 1 U nivers calcium 240 4-12 capsule by it y of mg capsule 00:00: mouth once [place] 00 daily as Medical needed for Branch Constipati on. ferrous 2020-0 Yes [id number] 325mg Take 1 Un dustin sulfate 325 4-12 tablet by ity of mg (65 mg 00:00: mouth 2 [place] iron) 00 (two) Medical tablet times Branch daily. ibuprofen 2020-0 Yes [id number] 600mg Take 1 Univers 600 mg 4-12 tablet by ity of tablet 00:00: mouth [place] 00 every 6 Medical (six) Branch hours as needed (Pain). Take with food or milk. 2020-0 Yes [id number] 1{tbl} Take 1 Univers vitamin 4-12 tablet by ity of w/FA tablet 00:00: mouth [place] 00 daily. Medical Branch docusate 2020-0 Yes [id number] 240mg Take 1 U nivers calcium 240 4-12 capsule by it y of mg capsule 00:00: mouth once [place] 00 daily as Medical needed for Branch Constipati on. ferrous 2020-0 Yes [id number] 325mg Take 1 Un dustin sulfate 325 4-12 tablet by ity of mg (65 mg 00:00: mouth 2 [place] iron) 00 (two) Medical tablet times Branch daily. ibuprofen 2020-0 Yes [id number] 600mg Take 1 Univers 600 mg 4-12 tablet by ity of tablet 00:00: mouth [place] 00 every 6 Medical (six) Branch hours as needed (Pain). Take with food or milk. 2020-0 Yes [id number] 1{tbl} Take 1 Univers vitamin 4-12 tablet by ity of w/FA tablet 00:00: mouth [place] 00 daily. Medical Branch docusate 2020-0 Yes [id number] 240mg Take 1 U nivers calcium 240 4-12 capsule by it y of mg capsule 00:00: mouth once [place] 00 daily as Medical needed for Branch Constipati on. ferrous 2020-0 Yes [id number] 325mg Take 1 Un dustin sulfate 325 4-12 tablet by ity of mg (65 mg 00:00: mouth 2 [place] iron) 00 (two) Medical tablet times Branch daily. ibuprofen 2020-0 Yes [id number] 600mg Take 1 Univers 600 mg 4-12 tablet by ity of tablet 00:00: mouth [place] 00 every 6 Medical (six) Branch hours as needed (Pain). Take with food or milk. 2020-0 Yes [id number] 1{tbl} Take 1 Univers vitamin 4-12 tablet by ity of w/FA tablet 00:00: mouth [place] 00 daily. Medical Branch docusate 2020-0 Yes [id number] 240mg Take 1 U nivers calcium 240 4-12 capsule by it y of mg capsule 00:00: mouth once [place] 00 daily as Medical needed for Branch Constipati on. ferrous 2020-0 Yes [id number] 325mg Take 1 Un dustin sulfate 325 4-12 tablet by ity of mg (65 mg 00:00: mouth 2 [place] iron) 00 (two) Medical tablet times Branch daily. ibuprofen 2020-0 Yes [id number] 600mg Take 1 Univers 600 mg 4-12 tablet by ity of tablet 00:00: mouth [place] 00 every 6 Medical (six) Branch hours as needed (Pain). Take with food or milk. 2020-0 Yes [id number] 1{tbl} Take 1 Univers vitamin 4-12 tablet by ity of w/FA tablet 00:00: mouth [place] 00 daily. Medical Branch docusate 2020-0 Yes [id number] 240mg Take 1 U nivers calcium 240 4-12 capsule by it y of mg capsule 00:00: mouth once [place] 00 daily as Medical needed for Branch Constipati on. ferrous 2020-0 Yes [id number] 325mg Take 1 Un dustin sulfate 325 4-12 tablet by ity of mg (65 mg 00:00: mouth 2 [place] iron) 00 (two) Medical tablet times Branch daily. ibuprofen 2020-0 Yes [id number] 600mg Take 1 Univers 600 mg 4-12 tablet by ity of tablet 00:00: mouth [place] 00 every 6 Medical (six) Branch hours as needed (Pain). Take with food or milk. 2020-0 Yes [id number] 1{tbl} Take 1 Univers vitamin 4-12 tablet by ity of w/FA tablet 00:00: mouth [place] 00 daily. Medical Branch docusate 2020-0 Yes [id number] 240mg Take 1 U nivers calcium 240 4-12 capsule by it y of mg capsule 00:00: mouth once [place] 00 daily as Medical needed for Branch Constipati on. ferrous 2020-0 Yes [id number] 325mg Take 1 Un dustin sulfate 325 4-12 tablet by ity of mg (65 mg 00:00: mouth 2 [place] iron) 00 (two) Medical tablet times Branch daily. ibuprofen 2020-0 Yes [id number] 600mg Take 1 Univers 600 mg 4-12 tablet by ity of tablet 00:00: mouth [place] 00 every 6 Medical (six) Branch hours as needed (Pain). Take with food or milk. 2020-0 Yes [id number] 1{tbl} Take 1 Univers vitamin 4-12 tablet by ity of w/FA tablet 00:00: mouth [place] 00 daily. Medical Branch docusate 2020-0 Yes [id number] 240mg Take 1 U nivers calcium 240 4-12 capsule by it y of mg capsule 00:00: mouth once [place] 00 daily as Medical needed for Branch Constipati on. ferrous 2020-0 Yes [id number] 325mg Take 1 Un dustin sulfate 325 4-12 tablet by ity of mg (65 mg 00:00: mouth 2 [place] iron) 00 (two) Medical tablet times Branch daily. ibuprofen 2020-0 Yes [id number] 600mg Take 1 Univers 600 mg 4-12 tablet by ity of tablet 00:00: mouth [place] 00 every 6 Medical (six) Branch hours as needed (Pain). Take with food or milk. 2020-0 Yes [id number] 1{tbl} Take 1 Univers vitamin 4-12 tablet by ity of w/FA tablet 00:00: mouth [place] 00 daily. Medical Branch docusate 2020-0 Yes [id number] 240mg Take 1 U nivers calcium 240 4-12 capsule by it y of mg capsule 00:00: mouth once [place] 00 daily as Medical needed for Branch Constipati on. ferrous 2020-0 Yes [id number] 325mg Take 1 Un dustin sulfate 325 4-12 tablet by ity of mg (65 mg 00:00: mouth 2 [place] iron) 00 (two) Medical tablet times Branch daily. ibuprofen 2020-0 Yes [id number] 600mg Take 1 Univers 600 mg 4-12 tablet by ity of tablet 00:00: mouth [place] 00 every 6 Medical (six) Branch hours as needed (Pain). Take with food or milk. 2020-0 Yes [id number] 1{tbl} Take 1 Univers vitamin 4-12 tablet by ity of w/FA tablet 00:00: mouth [place] 00 daily. Medical Branch docusate 2020-0 Yes [id number] 240mg Take 1 U nivers calcium 240 4-12 capsule by it y of mg capsule 00:00: mouth once [place] 00 daily as Medical needed for Branch Constipati on. ferrous 2020-0 Yes [id number] 325mg Take 1 Un dustin sulfate 325 4-12 tablet by ity of mg (65 mg 00:00: mouth 2 [place] iron) 00 (two) Medical tablet times Branch daily. ibuprofen 2020-0 Yes [id number] 600mg Take 1 Univers 600 mg 4-12 tablet by ity of tablet 00:00: mouth [place] 00 every 6 Medical (six) Branch hours as needed (Pain). Take with food or milk. 2020-0 Yes [id number] 1{tbl} Take 1 Univers vitamin 4-12 tablet by ity of w/FA tablet 00:00: mouth [place] 00 daily. Medical Branch docusate 2020-0 Yes [id number] 240mg Take 1 U nivers calcium 240 4-12 capsule by it y of mg capsule 00:00: mouth once [place] 00 daily as Medical needed for Branch Constipati on. ferrous 2020-0 Yes [id number] 325mg Take 1 Un dustin sulfate 325 4-12 tablet by ity of mg (65 mg 00:00: mouth 2 [place] iron) 00 (two) Medical tablet times Branch daily. ibuprofen 2020-0 Yes [id number] 600mg Take 1 Univers 600 mg 4-12 tablet by ity of tablet 00:00: mouth [place] 00 every 6 Medical (six) Branch hours as needed (Pain). Take with food or milk. 2020-0 Yes [id number] 1{tbl} Take 1 Univers vitamin 4-12 tablet by ity of w/FA tablet 00:00: mouth [place] 00 daily. Medical Branch docusate 2020-0 Yes [id number] 240mg Take 1 U nivers calcium 240 4-12 capsule by it y of mg capsule 00:00: mouth once [place] 00 daily as Medical needed for Branch Constipati on. ferrous 2020-0 Yes [id number] 325mg Take 1 Un dustin sulfate 325 4-12 tablet by ity of mg (65 mg 00:00: mouth 2 [place] iron) 00 (two) Medical tablet times Branch daily. ibuprofen 2020-0 Yes [id number] 600mg Take 1 Univers 600 mg 4-12 tablet by ity of tablet 00:00: mouth [place] 00 every 6 Medical (six) Branch hours as needed (Pain). Take with food or milk. 2020-0 Yes [id number] 1{tbl} Take 1 Univers vitamin 4-12 tablet by ity of w/FA tablet 00:00: mouth [place] 00 daily. Medical Branch docusate 2020-0 Yes [id number] 240mg Take 1 U nivers calcium 240 4-12 capsule by it y of mg capsule 00:00: mouth once [place] 00 daily as Medical needed for Branch Constipati on. ferrous 2020-0 Yes [id number] 325mg Take 1 Un dustin sulfate 325 4-12 tablet by ity of mg (65 mg 00:00: mouth 2 [place] iron) 00 (two) Medical tablet times Branch daily. ibuprofen 2020-0 Yes [id number] 600mg Take 1 Univers 600 mg 4-12 tablet by ity of tablet 00:00: mouth [place] 00 every 6 Medical (six) Branch hours as needed (Pain). Take with food or milk. 2020-0 Yes [id number] 1{tbl} Take 1 Univers vitamin 4-12 tablet by ity of w/FA tablet 00:00: mouth [place] 00 daily. Medical Branch docusate 2020-0 Yes [id number] 240mg Take 1 U nivers calcium 240 4-12 capsule by it y of mg capsule 00:00: mouth once [place] 00 daily as Medical needed for Branch Constipati on. ferrous 2020-0 Yes [id number] 325mg Take 1 Un dustin sulfate 325 4-12 tablet by ity of mg (65 mg 00:00: mouth 2 [place] iron) 00 (two) Medical tablet times Branch daily. ibuprofen 2020-0 Yes [id number] 600mg Take 1 Univers 600 mg 4-12 tablet by ity of tablet 00:00: mouth [place] 00 every 6 Medical (six) Branch hours as needed (Pain). Take with food or milk. 2020-0 Yes [id number] 1{tbl} Take 1 Univers vitamin 4-12 tablet by ity of w/FA tablet 00:00: mouth [place] 00 daily. Medical Branch docusate 2020-0 Yes [id number] 240mg Take 1 U nivers calcium 240 4-12 capsule by it y of mg capsule 00:00: mouth once [place] 00 daily as Medical needed for Branch Constipati on. ferrous 2020-0 Yes [id number] 325mg Take 1 Un dustin sulfate 325 4-12 tablet by ity of mg (65 mg 00:00: mouth 2 [place] iron) 00 (two) Medical tablet times Branch daily. ibuprofen 2020-0 Yes [id number] 600mg Take 1 Univers 600 mg 4-12 tablet by ity of tablet 00:00: mouth [place] 00 every 6 Medical (six) Branch hours as needed (Pain). Take with food or milk. 2020-0 Yes [id number] 1{tbl} Take 1 Univers vitamin 4-12 tablet by ity of w/FA tablet 00:00: mouth [place] 00 daily. Medical Branch docusate 2020-0 Yes [id number] 240mg Take 1 U nivers calcium 240 4-12 capsule by it y of mg capsule 00:00: mouth once [place] 00 daily as Medical needed for Branch Constipati on. ferrous 2020-0 Yes [id number] 325mg Take 1 Un dustin sulfate 325 4-12 tablet by ity of mg (65 mg 00:00: mouth 2 [place] iron) 00 (two) Medical tablet times Branch daily. ibuprofen 2020-0 Yes [id number] 600mg Take 1 [facility] 600 mg 4-12 tablet by ity of tablet 00:00: mouth [place] 00 every 6 Medical (six) Branch hours as needed (Pain). Take with food or milk. 2020-0 Yes [id number] 1{tbl} Take 1 [facility] vitamin 4-12 tablet by ity of w/FA tablet 00:00: mouth [place] 00 daily. Medical Branch docusate 2020-0 Yes [id number] 240mg Take 1 U nivers calcium 240 4-12 capsule by it y of mg capsule 00:00: mouth once [place] 00 daily as Medical needed for Branch Constipati on. ferrous 2020-0 Yes [id number] 325mg Take 1 Un dustin sulfate 325 4-12 tablet by ity of mg (65 mg 00:00: mouth 2 [place] iron) 00 (two) Medical tablet times Branch daily. ibuprofen 2020-0 Yes [id number] 600mg Take 1 [facility] 600 mg 4-12 tablet by ity of tablet 00:00: mouth [place] 00 every 6 Medical (six) Branch hours as needed (Pain). Take with food or milk. HYDROcodone 2019-0 2020- No [id number] 1{tbl} Take 1 [facility] -acetaminop 4-12 04-20 tablet by it y of hen 5-325 00:00: 04:59 mouth [place] mg tablet 00 :00 every 6 Medical (six) Branch hours as needed (for pain) for up to 7 days. Do not exceed 3 grams of acetaminop hen in 24 hours. HYDROcodone 2019- 2020- No [id number] 1{tbl} Take 1 Univers -acetaminop 11-22-20 tablet by it y of hen 5-325 00:00: 04:59 mouth [place] mg tablet 00 :00 every 6 Medical (six) Branch hours as needed (for pain) for up to 7 days. Do not exceed 3 grams of acetaminop hen in 24 hours. lactated 2019-0 2020- No 1000mL at 125 Univ ers ringers IV 11-21-12 mL/hr, ity of infusion 23:00: 03:56 1,000 mL, [place] 1,000 mL 00 :36 IV Medical Infusion, Branch CONTINUOUS , Starting 11/22/19 at 1800, Until 11/22/19 at 2256, Routine sodium 2019- No 30mL 30 mL, Univers citrate-cit 11-21 [...] Surgical Prophylaxi s
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
Duration of therapy: within 24 hours of surgery lactated 2019-0 2020- No 500mL at 999 Unive rs ringers IV 11-21- mL/hr, 500 it y of infusion 20:00: 20:40 mL, IV [place] 500 mL 00 :00 Infusion, Medical ONCE, 1 Branch dose, 11/22/19 at 1500, Routine D5W-LR IV 0 2020- No 1000mL at 125 Uni vers infusion 11-21-12 mL/hr, IV ity o f 1,000 mL 19:00: 03:56 Infusion, [place] 00 :36 CONTINUOUS Medical , Starting Branch 11/22/19 at 1400, Until 11/22/19 at 2256, Routine sodium 2019- 2020- No 30mL 30 mL, Univers citrate-cit [...] 00:00: mouth [place] (RIGHT STEP 00 daily. [facility] VITAMINS[facility] 27 mg iron- 0.8 mg per tablet ferrous 2020-0 Yes 325mg Take 1 [facility] sulfate 325 3-02 tablet by ity of mg (65 mg 00:00: mouth [place] iron) 00 daily. Medical tablet Branch 2020-0 Yes 1{tbl} Take 1 Unive rs Vit-Iron 3-02 tablet by ity of Fumarate-FA 00:00: mouth [place] (RIGHT STEP 00 daily. [facility] VITAMINS) 27 mg iron- 0.8 mg [...] 00:00: mouth [place] (RIGHT STEP 00 daily. [facility] 27 mg iron- 0.8 mg per tablet ferrous 2020-0 Yes 325mg Take 1 [facility] sulfate 325 3-02 tablet by ity of mg (65 mg 00:00: mouth [place] iron) 00 daily. Medical tablet Branch 0 Yes 1{tbl} Take 1 Unive rs Vit-Iron 3-02 tablet by ity of Fumarate-FA 00:00: mouth [place] (RIGHT STEP 00 daily. [facility] V[facility]) 27 mg iron- 0.8 mg per tablet ferrous 2020-0 Yes 325mg Take 1 [facility] sulfate 325 3-02 tablet by ity of mg (65 mg 00:00: mouth [place] iron) 00 daily. Medical tablet Branch Yes 1{tbl} Take 1 Unive rs Vit-Iron 3-02 tablet by ity of Fumarate-FA 00:00: mouth [place] (RIGHT STEP 00 daily. [facility] VITAMINS) 27 mg iron- 0.8 mg per tablet ferrous 2020-0 Yes 325mg Take 1 [facility] sulfate 325 3-02 tablet by ity of mg (65 mg 00:00: mouth [place] iron) 00 daily. Medical tablet Branch 2020- No 1{tbl} Take 1 Univ ers Vit-Iron 3-02 04-12 tablet by ity o f Fumarate-FA 00:00: 00:00 [place] (RIGHT STEP 00 :00 daily. [facility] VITAMINS) 27 mg iron- 0.8 mg per tablet ferrous 2020-0 2020- No 325mg Take 1 Univer s sulfate 325 3-02 04-12 tablet by it y of mg (65 mg 00:00: 00:00 mouth [place] iron) 00 :00 daily. Medical tablet Branch cefTRIAXone 2020- No 250mg Univ ers (ROCEPHIN) 10-02-20 ity of injection 17:00: 15:52 [place] 250 mg 00 :00 Medical Branch cefTRIAXone 2019- No 250mg 250 mg, U nivers (ROCEPHIN) 10-02-20 Intramuscu it y of injection 17:00: 15:52 [place], ONCE, [place] 250 mg 00 :00 1 dose, Medical [place] Branch 10/02/19 at 1100, GILBERT
Re ason for Anti-Infec tive: Documented Infection< br>Documen gianna Infection Site: Other
O ther site: vagina
Duration of Therapy: Other (see Comments) azithromyci 2020-0 2020- No [id number] 1000mg Take 2 Univers n 500 mg 2-19 02-20 tablets by ity of tablet 00:00: 05:59 mouth [place] 00 :[place] now for 1 Medical dose. Branch azithromyci 2020-0 2020- No [id number] 1000mg Take 2 Univers n 500 mg 2-19 02-20 tablets by ity of tablet 00:00: 05:59 mouth [place] 00 :00 now for 1 Medical dose. Branch ARIPiprazol 2020-0 Yes 2mg Take 2 mg U nivers e (ABILIFY) 2-18 by mouth ity of 2 mg tablet 19:58: daily. [place] [address] Medical Branch lisdexamfet 2020-0 Yes 50mg Take 50 mg Univers amine 2-18 by mouth ity of (VYVANSE) 19:58: every [place] 50 mg 26 morning. Medical capsule Branch ARIPiprazol 2020-0 Yes 2mg Take 2 mg U nivers e (ABILIFY) 2-18 by mouth ity of 2 mg tablet 19:58: daily. [place] [address] Medical Branch lisdexamfet 2020-0 Yes 50mg Take 50 mg [facility] amine 2-18 by mouth ity of (VYVANSE) 19:58: every [place] 50 mg 26 morning. Medical capsule Branch ARIPiprazol 2020-0 Yes 2mg Take 2 mg U nivers e (ABILIFY) 2-18 by mouth ity of 2 mg tablet 19:58: daily. [place] [address] Medical Branch lisdexamfet 2020-0 Yes 50mg Take 50 mg [facility] amine 2-18 by mouth ity of (VYVANSE) 19:58: every [place] 50 mg 26 morning. Medical capsule Branch ARIPiprazol 2020-0 Yes 2mg Take 2 mg U nivers e (ABILIFY) 2-18 by mouth ity of 2 mg tablet 19:58: daily. [address] Branch lisdexamfet 2020-0 Yes 50mg Take 50 mg Univers amine 2-18 by mouth ity of (VYVANSE) 19:58: every [place] 50 mg 26 morning. Medical capsule Branch ARIPiprazol 2020-0 Yes 2mg Take 2 mg U nivers e (ABILIFY) 2-18 by mouth ity of 2 mg tablet 19:58: daily. [place] [address] Medical Branch lisdexamfet 2020-0 Yes 50mg Take 50 mg Univers amine 2-18 by mouth ity of (VYVANSE) 19:58: every [place] 50 mg 26 morning. Medical capsule Branch ARIPiprazol 2020-0 Yes 2mg Take 2 mg U nivers e (ABILIFY) 2-18 by mouth ity of 2 mg tablet 19:58: daily. [place] [address] Medical Branch lisdexamfet 2020-0 Yes 50mg Take 50 mg [facility] amine 2-18 by mouth ity of (VYVANSE) 19:58: every [place] 50 mg 26 morning. Medical capsule Branch ARIPiprazol 2020-0 Yes 2mg Take 2 mg U nivers e (ABILIFY) 2-18 by mouth ity of 2 mg tablet 19:58: daily. [place] [address] Medical Branch lisdexamfet 2020-0 Yes 50mg Take 50 mg Univers amine 2-18 by mouth ity of (VYVANSE) 19:58: every [place] 50 mg 26 morning. Medical capsule Branch ARIPiprazol 2020-0 Yes 2mg Take 2 mg U nivers e (ABILIFY) 2-18 by mouth ity of 2 mg tablet 19:58: daily. [place] [address] Medical Branch lisdexamfet 2020-0 Yes 50mg Take 50 mg Univers amine 2-18 by mouth ity of (VYVANSE) 19:58: every [place] 50 mg 26 morning. Medical capsule Branch ARIPiprazol 2020-0 Yes 2mg Take 2 mg U nivers e (ABILIFY) 2-18 by mouth ity of 2 mg tablet 19:58: daily. [place] [address] Medical Branch lisdexamfet 2020-0 Yes 50mg Take 50 mg Univers amine 2-18 by mouth ity of (VYVANSE) 19:58: every [place] 50 mg 26 morning. Medical capsule Branch ARIPiprazol 2020-0 Yes 2mg Take 2 mg U nivers e (ABILIFY) 2-18 by mouth ity of 2 mg tablet 19:58: daily. [place] [address] Medical Branch lisdexamfet 2020-0 Yes 50mg Take 50 mg Univers amine 2-18 by mouth ity of (VYVANSE) 19:58: every [place] 50 mg 26 morning. Medical capsule Branch ARIPiprazol 2020-0 Yes 2mg Take 2 mg U nivers e (ABILIFY) 2-18 by mouth ity of 2 mg tablet 19:58: daily. [address] Branch lisdexamfet 2020-0 Yes 50mg Take 50 mg Univers amine 2-18 by mouth ity of (VYVANSE) 19:58: every [place] 50 mg 26 morning. Medical capsule Branch ARIPiprazol 2020-0 Yes 2mg Take 2 mg U nivers e (ABILIFY) 2-18 by mouth ity of 2 mg tablet 19:58: daily. [address] Branch lisdexamfet 2020-0 Yes 50mg Take 50 mg Univers amine 2-18 by mouth ity of (VYVANSE) 19:58: every [place] 50 mg 26 morning. Medical capsule Branch ARIPiprazol 2020-0 Yes 2mg Take 2 mg U nivers e (ABILIFY) 2-18 by mouth ity of 2 mg tablet 19:58: daily. [place] [address] Medical Branch lisdexamfet 2020-0 Yes 50mg Take 50 mg Univers amine 2-18 by mouth ity of (VYVANSE) 19:58: every [place] 50 mg 26 morning. Medical capsule Branch ARIPiprazol 2020-0 Yes 2mg Take 2 mg U nivers e (ABILIFY) 2-18 by mouth ity of 2 mg tablet 19:58: daily. [place] [address] Medical Branch lisdexamfet 2020-0 Yes 50mg Take 50 mg [facility] amine 2-18 by mouth ity of (VYVANSE) 19:58: every [place] 50 mg 26 morning. Medical capsule Branch ARIPiprazol 2020-0 Yes 2mg Take 2 mg U nivers e (ABILIFY) 2-18 by mouth ity of 2 mg tablet 19:58: daily. [address] Branch lisdexamfet 2020-0 Yes 50mg Take 50 mg Univers amine 2-18 by mouth ity of (VYVANSE) 19:58: every [place] 50 mg 26 morning. Medical capsule Branch ARIPiprazol 2020-0 Yes 2mg Take 2 mg U nivers e (ABILIFY) 2-18 by mouth ity of 2 mg tablet 19:58: daily. [place] [address] Medical Branch lisdexamfet 2020-0 Yes 50mg Take 50 mg Univers amine 2-18 by mouth ity of (VYVANSE) 19:58: every [place] 50 mg 26 morning. Medical capsule Branch ARIPiprazol 2020-0 Yes 2mg Take 2 mg U nivers e (ABILIFY) 2-18 by mouth ity of 2 mg tablet 19:58: daily. [place] [address] Medical Branch lisdexamfet 2020-0 Yes 50mg Take 50 mg Univers amine 2-18 by mouth ity of (VYVANSE) 19:58: every [place] 50 mg 26 morning. Medical capsule Branch ARIPiprazol 2020-0 Yes 2mg Take 2 mg U nivers e (ABILIFY) 2-18 by mouth ity of 2 mg tablet 19:58: daily. [place] [address] Medical Branch lisdexamfet 2019-0 Yes 50mg Take 50 mg Univers amine 2-18 by mouth ity of (VYVANSE) 19:58: every [place] 50 mg 26 morning. Medical capsule Branch ARIPiprazol 2020-0 Yes 2mg Take 2 mg U nivers e (ABILIFY) 2-18 by mouth ity of 2 mg tablet 19:58: daily. [place] [address] Medical Branch lisdexamfet 2020-0 Yes 50mg Take 50 mg Univers amine 2-18 by mouth ity of (VYVANSE) 19:58: every [place] 50 mg 26 morning. Medical capsule Branch ARIPiprazol 2020-0 Yes 2mg Take 2 mg U nivers e (ABILIFY) 2-18 by mouth ity of 2 mg tablet 19:58: daily. [place] [address] Medical Branch lisdexamfet 2020-0 Yes 50mg Take 50 mg [facility] amine 2-18 by mouth ity of (VYVANSE) 19:58: every [place] 50 mg 26 morning. Medical capsule Branch lisdexamfet 2014-0 Yes 50mg Take 50 mg Univers amine 5-05 by mouth ity of (VYVANSE) 14:18: every [place] 50 mg 37 morning. Medical capsule Branch ARIPiprazol 2014- Yes 2mg Take 2 mg U nivers e (ABILIFY) 5-05 by mouth ity of 2 mg tablet 14:18: [place]. [place] Branch Somatropin Yes [id number] 3mg inject 3 Univers (NORDITROPI 5-05 mg under ity of N FLEXPRO) 00:00: the skin [place] 15 mg/1.5 00 daily. Medical mL (10 Branch mg/mL) PnIj Somatropin Yes [id number] 3mg inject 3 Univers (NORDITROPI 5-05 mg under ity of N FLEXPRO) 00:00: the skin [place] 15 mg/1.5 00 daily. Medical mL (10 Branch mg/mL) PnIj Somatropin Yes [id number] 3mg inject 3 Univers (NORDITROPI 5-05 mg under ity of N FLEXPRO) 00:00: the skin [place] 15 mg/1.5 00 daily. Medical mL (10 Branch mg/mL) PnIj Somatropin Yes [id number] 3mg inject 3 Univers (NORDITROPI 5-05 mg under ity of N FLEXPRO) 00:00: the skin [place] 15 mg/1.5 00 daily. Medical mL (10 Branch mg/mL) PnIj Somatropin Yes [id number] 3mg inject 3 Univers (NORDITROPI 5-05 mg under ity of N FLEXPRO) 00:00: the skin [place] 15 mg/1.5 00 daily. Medical mL (10 Branch mg/mL) PnIj Somatropin Yes [id number] 3mg inject 3 Univers (NORDITROPI 5-05 mg under ity of N FLEXPRO) 00:00: the skin [place] 15 mg/1.5 00 daily. Medical mL (10 Branch mg/mL) PnIj Somatropin Yes [id number] 3mg inject 3 Univers (NORDITROPI 5-05 mg under ity of N FLEXPRO) 00:00: the skin [place] 15 mg/1.5 00 daily. Medical mL (10 Branch mg/mL) PnIj Somatropin Yes [id number] 3mg inject 3 Univers (NORDITROPI 5-05 mg under ity of N FLEXPRO) 00:00: the skin [place] 15 mg/1.5 00 daily. Medical mL (10 Branch mg/mL) PnIj Somatropin 2014-0 Yes [id number] 3mg inject 3 Univers (NORDITROPI 5-05 mg under ity of N FLEXPRO) 00:00: the skin [place] 15 mg/1.5 00 daily. Medical mL (10 Branch mg/mL) PnIj Somatropin 2014-0 Yes [id number] 3mg inject 3 Univers (NORDITROPI 5-05 mg under ity of N FLEXPRO) 00:00: the skin [place] 15 mg/1.5 00 daily. Medical mL (10 Branch mg/mL) PnIj Somatropin 2014-0 Yes [id number] 3mg inject 3 Univers (NORDITROPI 5-05 mg under ity of N FLEXPRO) 00:00: the skin [place] 15 mg/1.5 00 daily. Medical mL (10 Branch mg/mL) PnIj Somatropin 2014-0 Yes [id number] 3mg inject 3 Univers (NORDITROPI 5-05 mg under ity of N FLEXPRO) 00:00: the skin [place] 15 mg/1.5 00 daily. Medical mL (10 Branch mg/mL) PnIj Somatropin 2014-0 Yes [id number] 3mg inject 3 Univers (NORDITROPI 5-05 mg under ity of N FLEXPRO) 00:00: the skin [place] 15 mg/1.5 00 daily. Medical mL (10 Branch mg/mL) PnIj Somatropin 2014-0 Yes [id number] 3mg inject 3 Univers (NORDITROPI 5-05 mg under ity of N FLEXPRO) 00:00: the skin [place] 15 mg/1.5 00 daily. Medical mL (10 Branch mg/mL) PnIj Somatropin 2014-0 Yes [id number] 3mg inject 3 Univers (NORDITROPI 5-05 mg under ity of N FLEXPRO) 00:00: the skin [place] 15 mg/1.5 00 daily. Medical mL (10 Branch mg/mL) PnIj Somatropin 2014-0 Yes [id number] 3mg inject 3 Univers (NORDITROPI 5-05 mg under ity of N FLEXPRO) 00:00: the skin [place] 15 mg/1.5 00 daily. Medical mL (10 Branch mg/mL) PnIj Somatropin Yes [id number] 3mg inject 3 Univers (NORDITROPI 5-05 mg under ity of N FLEXPRO) 00:00: the skin [place] 15 mg/1.5 00 daily. Medical mL (10 Branch mg/mL) PnIj Somatropin Yes [id number] 3mg inject 3 Univers (NORDITROPI 5-05 mg under ity of N FLEXPRO) 00:00: the skin [place] 15 mg/1.5 00 daily. Medical mL (10 Branch mg/mL) PnIj Somatropin Yes [id number] 3mg inject 3 Univers (NORDITROPI 5-05 mg under ity of N FLEXPRO) 00:00: the skin [place] 15 mg/1.5 00 daily. Medical mL (10 Branch mg/mL) PnIj Somatropin Yes [id number] 3mg inject 3 Univers (NORDITROPI 5-05 mg under ity of N FLEXPRO) 00:00: the skin [place] 15 mg/1.5 00 daily. Medical mL (10 Branch mg/mL) PnIj Somatropin Yes [id number] 3mg inject 3 Univers (NORDITROPI 5-05 mg under ity of N FLEXPRO) 00:00: the skin [place] 15 mg/1.5 00 daily. Medical mL (10 Branch mg/mL) PnIj Somatropin 2020- No [id number] 3mg inject 3 Univers (NORDITROPI 5-05 04-12 [...] Immunizations Ordered Filled Immunization Date Status Comments [facility] e Immunization Name Name Varicella 2019-11-24 [...] y of Vaccine Quad .5 mL 00:00:[address] [facility] 6+ MO [place] Tdap 2019-09-30 Completed University of 00:00:00 [facility] Influenza Virus 2019-09-30 Completed Universit y of Vaccine [place] .5 mL 00:00:[address] [facility] 6+ MO [place] Tdap 2019-09-30 Completed University of 00:00:00 [facility] Influenza Virus 2019-09-30 Completed Universit y of Vaccine [place] .5 mL 00:00:[address] [facility] 6+ MO [place] Tdap 2019-09-30 Completed University of 00:00:00 [facility] Influenza Virus 2019-09-30 Completed Universit y of Vaccine [place] .5 mL 00:00:[address] [facility] 6+ MO [place] Tdap 2019-09-30 Completed University of 00:00:00 [facility] Influenza Virus 2019-09-30 Completed Universit y of Vaccine Quad .5 mL 00:00:[address] [facility] 6+ MO Branch Tdap 2019-09-30 Completed University of 00:00:00 [facility] Influenza Virus 2019-09-30 Completed Universit y of Vaccine Quad .5 mL 00:00:00 [place] [facility] 6+ MO Branch Tdap 2019-09-30 Completed University of 00:00:00 [facility] Influenza Virus 2019-09-30 Completed Universit y of Vaccine [place] .5 mL 00:00:[address] [facility] 6+ MO Branch Tdap 2019-09-30 Completed University of 00:00:00 [facility] Influenza Virus 2019-09-30 Completed Universit y of Vaccine [place] .5 mL 00:00:[address] [facility] 6+ MO Branch Tdap 2019-09-30 Completed University of 00:00:00 [facility] Influenza Virus 2019-09-30 Completed Universit y of Vaccine [place] .5 mL 00:00:[address] [facility] 6+ MO Branch Tdap 2019-09-30 Completed University of 00:00:00 [facility] Influenza Virus 2019-09-30 Completed Universit y of Vaccine [place] .5 mL 00:00:[address] [facility] 6+ MO Branch Tdap 2019-09-30 Completed University of 00:00:00 [facility] Influenza Virus 2019-09-30 Completed Universit y of Vaccine [place] .5 mL 00:00:[address] [facility] 6+ MO Branch Tdap 2019-09-30 Completed University of 00:00:00 [facility] Influenza Virus 2019-09-30 Completed Universit y of Vaccine [place] .5 mL 00:00:[address] [facility] 6+ MO Branch Tdap 2019-09-30 Completed University of 00:00:00 [facility] Influenza Virus 2019-09-30 Completed Universit y of Vaccine [place] .5 mL 00:00:[address] [facility] 6+ MO Branch Tdap 2019-09-30 Completed University of 00:00:00 [facility] Influenza Virus 2019-09-30 Completed Universit y of Vaccine Quad .5 mL 00:00:00 [place] [facility] 6+ MO Branch Tdap 2019-09-30 Completed University of 00:00:00 [facility] Influenza Virus 2019-09-30 Completed Universit y of Vaccine [place] .5 mL 00:00:[address] [facility] 6+ MO Branch Tdap 2019-09-30 Completed University of 00:00:00 [facility] Influenza Virus 2019-09-30 Completed Universit y of Vaccine Quad .5 mL 00:00:00 [place] [facility] IM 6+ MO Branch Tdap 2019-09-30 Completed University of 00:00:00 [facility] Influenza Virus 2019-09-30 Completed Universit y of Vaccine Quad .5 mL 00:00:00 [place] [facility] IM 6+ MO Branch Tdap 2019-09-30 Completed University of 00:00:00 [facility] Influenza Virus 2019-09-30 Completed Universit y of Vaccine Quad .5 mL 00:00:00 [place] [facility] IM 6+ MO Branch Tdap 2019-09-30 Completed University of 00:00:00 [facility] Influenza Virus 2019-09-30 Completed Universit y of Vaccine Quad .5 mL 00:00:00 [place] [facility] 6+ MO Branch Tdap 2019-09-30 Completed University of 00:00:00 [facility] Influenza Virus 2019-09-30 Completed Universit y of Vaccine Quad .5 mL 00:00:00 [place] [facility] 6+ MO Branch Tdap 2019-09-30 Completed University of 00:00:00 [facility] Influenza Virus 2019-09-30 Completed Universit y of Vaccine Quad .5 mL 00:00:00 [place] [facility] 6+ MO Branch Tdap 2019-09-30 Completed University of 00:00:00 [facility] Influenza Virus 2019-09-30 Completed Universit y of Vaccine Quad .5 mL 00:00:00 [place] [facility] 6+ MO Branch Tdap 2019-09-30 Completed University of 00:00:00 [facility] Influenza Virus 2019-09-30 Completed Universit y of Vaccine Quad .5 mL 00:00:00 [place] [facility] 6+ MO Branch TDAP 2019-09-30 Completed University of 00:00:00 [facility] Influenza Virus 2019-09-30 Completed Universit y of Vaccine Quad .5 mL 00:00:00 [place] [facility] 6+ MO Branch TDAP 2019-09-30 Completed University of 00:00:00 [facility] Influenza Virus 2019-09-30 Completed Universit y of Vaccine Quad .5 mL 00:00:00 [place] [facility] IM 6+ MO Branch TDAP 2019-09-30 Completed University of 00:00:00 [facility] Influenza Virus 2019-09-30 Completed Universit y of Vaccine Quad .5 mL 00:00:00 [place] [facility] IM 6+ MO Branch TDAP 2019-09-30 Completed University of 00:00:00 [facility] Influenza Virus 2019-09-30 Completed Universit y of Vaccine Quad .5 mL 00:00:00 [place] [facility] IM 6+ MO Branch TDAP 2019-09-30 Completed University of 00:00:00 [facility] Influenza Virus 2019-09-30 Completed Universit y of Vaccine Quad .5 mL 00:00:00 [place] [facility] IM 6+ MO Branch TDAP 2019-09-30 Completed University of 00:00:00 [facility] Influenza Virus 2019-09-30 Completed Universit y of Vaccine Quad .5 mL 00:00:00 [place] [facility] IM 6+ MO Branch Influenza Virus 2019-09-30 Completed Universit y of Vaccine [place] .5 mL 00:00:[address] [facility] 6+ MO Branch TDAP 2019-09-30 Completed University of 00:00:00 [facility] Tdap 2019-09-30 Completed University of 00:00:00 [facility] Influenza Virus 2019-09-30 Completed Universit y of Vaccine Quad .5 mL 00:00:[address] [facility] 6+ MO Branch TDAP 2019-09-30 Completed University of 00:00:00 [facility] Influenza Virus 2019-09-30 Completed Universit y of Vaccine Quad .5 mL 00:00:00 [place] [facility] 6+ MO Branch TDAP 2019-09-30 Completed University of 00:00:00 [facility] Influenza Virus 2019-09-30 Completed Universit y of Vaccine Quad .5 mL 00:00:[address] [facility] 6+ MO Branch TDAP 2019-09-30 Completed University of 00:00:00 [facility] Influenza Virus 2019-09-30 Completed Universit y of Vaccine Quad .5 mL 00:00:00 [place] [facility] 6+ MO Branch TDAP 2019-09-30 Completed University of 00:00:00 [facility] Influenza Virus 2019-09-30 Completed Universit y of Vaccine Quad .5 mL 00:00:00 [place] [facility] 6+ MO Branch TDAP 2019-09-30 Completed University of 00:00:00 [facility] Influenza Virus 2019-09-30 Completed Universit y of Vaccine Quad .5 mL 00:00:00 [place] [facility] 6+ MO Branch TDAP 2019-09-30 Completed University of 00:00:00 [facility] Influenza Virus 2019-09-30 Completed Universit y of Vaccine Quad .5 mL 00:00:00 [place] [facility] IM 6+ MO Branch Tdap 2019-09-30 Completed University of 00:00:00 [facility] Influenza Virus 2019-09-30 Completed Universit y of Vaccine Quad .5 mL 00:00:00 [facility] IM 6+ MO Branch Tdap 2019-09-30 Completed University of 00:00:00 [facility] Influenza Virus 2019-09-30 Completed Universit y of Vaccine Quad .5 mL 00:00:00 [facility] IM 6+ MO Branch Tdap 2019-09-30 Completed University of 00:00:00 [facility] Vital Signs Vital Name Observation Time Observation Value Comments Source Systolic blood 2022-11-15 19:38:00 109 mm[Hg] Univer sity of pressure [facility] Diastolic blood 2022-11-15 19:38:00 70 mm[Hg] Unive rsity of pressure [facility] Heart rate 2022-11-15 19:38:00 87 /min Universi ty of [facility] Respiratory rate 2022-11-15 19:38:00 16 /min [facility] Body height 2022-11-15 19:38:00 152.4 cm Universi ty of [facility] Body weight 2022-11-15 19:38:00 69.854 kg Universi ty of [facility] BMI 2022-11-15 19:38:00 30.08 kg/m2 Universi ty of [facility] Oxygen saturation in 2022-11-15 19:38:00 98 /min University Arterial blood by [facility] [place] Pulse oximetry Branch Systolic blood 2022-11-14 19:57:00 104 mm[Hg] Univer sity of pressure [facility] Diastolic blood 2022-11-14 19:57:00 53 mm[Hg] Unive rsity of pressure [facility] Heart rate 2022-11-14 19:57:00 84 /min Universi ty of [facility] Respiratory rate 2022-11-14 19:57:00 18 /min Univ ersity of [facility] Body height 2022-11-14 19:57:00 152.4 cm Universi ty of [facility] Body weight 2022-11-14 19:57:00 69.4 kg Universi ty of [facility] BMI 2022-11-14 19:57:00 29.88 kg/m2 [facility] Systolic blood 2022-11-10 17:40:00 107 mm[Hg] Univer sity of [facility] Diastolic blood 2022-11-10 17:40:00 68 mm[Hg] Unive rsity of [facility] Heart rate 2022-11-10 17:40:00 77 /min [facility] Respiratory rate 2022-11-10 17:40:00 16 /min Univ [facility] Body height 2022-11-10 17:40:00 152.4 cm [facility] Body weight 2022-11-10 17:40:00 68.72 kg [facility] BMI 2022-11-10 17:40:00 29.59 kg/m2 [facility] Oxygen saturation in 2022-11-10 17:40:00 98 /min University of Arterial blood by [facility] Pulse oximetry Branch Systolic blood 2020-01-07 14:30:00 108 mm[Hg] Univer sity of [facility] Diastolic blood 2020-01-07 14:30:00 67 mm[Hg] Unive rsity of [facility] Heart rate 2020-01-07 14:30:00 66 /min [facility] Body temperature 2020-01-07 14:30:00 36.56 Akua Univ [facility] Respiratory rate 2020-01-07 14:30:00 16 /min Univ [facility] Body height 2020-01-07 14:30:00 152.4 cm [facility] Body weight 2020-01-07 14:30:00 68.55 kg [facility] BMI 2020-01-07 14:30:00 29.51 kg/m2 [facility] Systolic blood 2019-11-28 20:21:00 112 mm[Hg] Univer [facility]ity [facility] Diastolic blood 2019-11-28 20:21:00 77 mm[Hg] Unive rsity of [facility] Heart rate 2019-11-28 20:21:00 83 /min [facility] Body temperature 2019-11-28 20:21:00 36.56 Akua Univ [facility] Respiratory rate 2019-11-28 20:21:00 16 /min Univ ersity of [facility] Body height 2019-11-28 20:21:00 152.4 cm [facility] [place] [facility] [place] Body weight 2019-11-28 20:21:00 70.081 kg [facility] BMI 2019-11-28 20:21:00 30.17 kg/m2 [facility] Systolic blood 2019-11-28 20:21:00 112 mm[Hg] Univer sity of pressure [facility] Diastolic blood 2019-11-28 20:21:00 77 mm[Hg] Unive rsity of pressure [facility] Heart rate 2019-11-28 20:21:00 83 /min Universi ty of [facility] Body temperature 2019-11-28 20:21:00 36.56 Akua Univ ersity of [facility] Respiratory rate 2019-11-28 20:21:00 16 /min Univ ersity of [facility] Body height 2019-11-28 20:21:00 152.4 cm Universi ty of [facility] Body weight 2019-11-28 20:21:00 70.081 kg [facility] BMI 2019-11-28 20:21:00 30.17 kg/m2 [facility] Systolic blood 2019-11-24 12:57:00 117 mm[Hg] Univer sity of [facility] Diastolic blood 2019-11-24 12:57:00 59 mm[Hg] Unive rsity of pressure [facility] Heart rate 2019-11-24 12:57:00 99 /min Universi ty of [facility] Body temperature 2019-11-24 12:57:00 36.44 Akua Univ ersity of [facility] Respiratory rate 2019-11-24 12:57:00 18 /min Univ ersity of [facility] Oxygen saturation in 2019-11-24 12:57:00 100 /min University Arterial blood by [facility] Pulse oximetry Branch Body height 2019-11-22 17:18:00 152.4 cm Universi ty of [facility] Body weight 2019-11-22 17:18:00 72.122 kg Universi [facility] of [facility] BMI 2019-11-22 17:18:00 31.05 kg/m2 [facility] Systolic blood 2019-11-24 12:57:00 117 mm[Hg] Univer sity of pressure [facility] Diastolic blood 2019-11-24 12:57:00 59 mm[Hg] Unive rsity of pressure [facility] Heart rate 2019-11-24 12:57:00 99 /min Universi [facility] of [facility] Body temperature 2019-11-24 12:57:00 36.44 Akua Univ ersity of [facility] Respiratory rate 2019-11-24 12:57:00 18 /min Univ ersity of [facility] Oxygen saturation in 2019-11-24 12:57:00 100 /min University of Arterial blood by [facility] Pulse oximetry Branch Body height 2019-11-22 17:18:00 152.4 cm Universi [facility] of [facility] Body weight 2019-11-22 17:18:00 72.122 kg Universi [facility] of [facility] BMI 2019-11-22 17:18:00 31.05 kg/m2 [facility]i [facility] Systolic blood 2019-11-18 13:42:00 124 mm[Hg] Univer sity of pressure [facility] Diastolic blood 2019-11-18 13:42:00 70 mm[Hg] Unive rsity of pressure [facility] Heart rate 2019-11-18 13:42:00 79 /min Universi ty of [facility] Body temperature 2019-11-18 13:42:00 36.17 Akua Univ ersity of [facility] Respiratory rate 2019-11-18 13:42:00 16 /min Univ ersity of [facility] Body height 2019-11-18 13:42:00 152.4 cm Universi [facility] of [facility] Body weight 2019-11-18 13:42:00 73.057 kg [facility] BMI 2019-11-18 13:42:00 31.46 kg/m2 [facility] Systolic blood 2019-11-18 13:42:00 124 mm[Hg] Univer [facility]ity of [facility] Diastolic blood 2019-11-18 13:42:00 70 mm[Hg] Unive rsity of pressure [facility] Heart rate 2019-11-18 13:42:00 79 /min Universi ty of [facility] Body temperature 2019-11-18 13:42:00 36.17 Akua Univ ersity of [facility] Respiratory rate 2019-11-18 13:42:00 16 /min Univ [facility] Body height 2019-11-18 13:42:00 152.4 cm [facility] Body weight 2019-11-18 13:42:00 73.057 kg [facility] BMI 2019-11-18 13:42:00 31.46 kg/m2 [facility] Systolic blood 2019-11-11 13:57:00 118 mm[Hg] Univer [facility]ity [facility] Diastolic blood 2019-11-11 13:57:00 69 mm[Hg] Unive rsity of [facility] Heart rate 2019-11-11 13:57:00 82 /min [facility] Body temperature 2019-11-11 13:57:00 36.33 Akua Univ [facility] Respiratory rate 2019-11-11 13:57:00 16 /min Univ [facility] Body height 2019-11-11 13:57:00 152.4 cm [facility] Body weight 2019-11-11 13:57:00 71.697 kg [facility] BMI 2019-11-11 13:57:00 30.87 kg/m2 [facility] Systolic blood 2019-11-11 13:57:00 118 mm[Hg] Univer [facility] Diastolic blood 2019-11-11 13:57:00 69 mm[Hg] Unive rs[facility] Heart rate 2019-11-11 13:57:00 82 /min [facility] Body temperature 2019-11-11 13:57:00 36.33 Akua [facility] Respiratory rate 2019-11-11 13:57:00 16 /min Univ [facility] Body height 2019-11-11 13:57:00 152.4 cm [facility] Body weight 2019-11-11 13:57:00 71.697 kg [facility] BMI 2019-11-11 13:57:00 30.87 kg/m2 [facility] Systolic blood 2019-10-27 15:32:00 114 mm[Hg] [facility] Diastolic blood 2019-10-27 15:32:00 66 mm[Hg] Unive rsity of [facility] Heart rate 2019-10-27 15:32:00 83 /min [facility] Body temperature 2019-10-27 15:32:00 36.89 Akua [facility] Respiratory rate 2019-10-27 15:32:00 16 /min Univ [facility] Body height 2019-10-27 15:32:00 152.4 cm [facility] Body weight 2019-10-27 15:32:00 70.308 kg [facility] BMI 2019-10-27 15:32:00 30.27 kg/m2 [facility] Systolic blood 2019-10-13 15:00:00 116 mm[Hg] [facility]iver [facility] Diastolic blood 2019-10-13 15:00:00 67 mm[Hg] Unive rsity [facility] Heart rate 2019-10-13 15:00:00 84 /min [facility] Body temperature 2019-10-13 15:00:00 36.39 Akua [facility] Respiratory rate 2019-10-13 15:00:00 16 /min [facility] Body height 2019-10-13 15:00:00 152.4 cm [facility] Body weight 2019-10-13 15:00:00 69.31 kg [facility] BMI 2019-10-13 15:00:00 29.84 kg/m2 [facility] Systolic blood 2019-10-02 15:13:00 128 mm[Hg] Univer [facility]ity [facility] Diastolic blood 2019-10-02 15:13:00 71 mm[Hg] Unive rsity of [facility] Heart rate 2019-10-02 15:13:00 81 /min [facility] Body temperature 2019-10-02 15:13:00 36.22 Akua [facility] Respiratory rate 2019-10-02 15:13:00 16 /min Univ [facility] Body height 2019-10-02 15:13:00 152.4 cm [facility] Body weight 2019-10-02 15:13:00 67.586 kg [facility] BMI 2019-10-02 15:13:00 29.10 kg/m2 [facility] Systolic blood 2019-09-30 19:43:00 113 mm[Hg] [facility] 2019-09-30 19:43:00 67 mm[Hg] Unive [facility] Heart rate 2019-09-30 19:43:00 91 /min [facility] Body temperature 2019-09-30 19:43:00 36.22 Akua [facility] Respiratory rate 2019-09-30 19:43:00 16 /min [facility] Body height 2019-09-30 19:43:00 152.4 cm [facility] Body weight 2019-09-30 19:43:00 67.189 kg [facility] BMI 2019-09-30 19:43:00 28.93 kg/m2 [facility] Procedures Procedure Date / Time Performing Clinician Source Performed INSURANCE CORRESPONDENCE 2022-11-21 05:01:00 Doctor Unassigned, [facility] POCT TEST 2022-11-15 00:00:00 Ruddy Colbert [facility] ASSIGNMENT OF BENEFITS 2022-11-10 17:19:34 Doctor Unassazra, [facility] POCT TEST 2020-01-07 14:33:00 Rashid Cha [facility] CONSENT FOR CONTRACEPTION 2020-01-07 05:01:00 Doctor Unassigned, [facility] CBC WITH DIFFERENTIAL 2019-11-23 09:13:00 [facility] ARTERIAL CORD GAS 2019-11-22 23:50:00 [facility] VENOUS CORD GAS 2019-11-22 23:49:00 [facility] o f [facility] SECTION 2019-11-22 23:00:00 [facility]FACE 2019-11-22 20:42:00 [place] [facility] ANTIGEN [facility] GALV ONLY - SYPHILIS 2019-11-22 20:42:00 Juanis Goff [facility] IGG/IGM [facility] HB ABO GROUPING 2019-11-22 20:02:00 [facility] RHO (D) IMMUNE GLOBULIN 2019-11-22 20:02:00 Reynold Jones [facility] CORONAVIRUS COVID-19 2019-11-22 17:09:00 Fidelia [facility] TESTING [facility] POCT URINALYSIS 2019-11-18 13:49:00 Carla Rajan [facility] POCT URINALYSIS 2019-11-11 14:00:00 Carla Rajan [facility] POCT URINALYSIS 2019-10-27 17:09:00 Carla Rajan [facility] AUTHORIZATION TO RELEASE 2019-10-09 06:01:00 Doctor Unassigned, [facility] PHI TO [facility] [place] [facility] TDAP VACCINE, >11 YRS, IM 2019-09-30 20:39:21 Carla Rajan [facility] FLU VACC ([id number]), 6+ 2019-09-30 20:22:55 Carla Rajan [facility] MONTHS, IM, QUAD [facility] POCT URINALYSIS W/O 2019-09-30 19:35:00 [facility] SPEC[facility] GRAV[facility] POCT TEST 2019-09-30 19:34:00 Carla Rajan Uni [facility] ASSIGNMENT OF BENEFITS 2019-09-30 19:11:56 Doctor Unassigned, [facility] [place] [facility] Encounters Start End Encounter Admission Attending Care Care Encounter Source Date/Time Date/Time Type Type Clinicians Facility Department ID 2021-06-09 Outpatient [facility] [id number] Univers 17:44:35 [facility] 2023-02-07 2023-02-07 Outpatient R RUDDY COLBERT [facility] B [id number] Univers 13:00:00 13:00:00 RUDDY COLBERT [facility] 2022-12-13 2022-12-[address] [facility] [id number] [place] 16:42:16 16:42:16 [id number] Gee 2022-12-13 2022-12-13 Outpatient R [facility] [id number] Univers 15:15:00 15:15:00 ity of [facility] 2022-11-22 2022-11-22 Telephone [facility] 1.2.840.114 [id number] Univers 00:00:00 00:00:00 Brittni BULLARD 350.1.13.10 it [place] [facility] [place] [facility] [id number] [address] 2022-11-21 2022-11-21 Orders Doctor ESTUARDO 1.2.840.114 [id number] Univers 00:00:00 00:00:00 Only Unassigned, [place] 350.1.13.10 ity of [place] [facility] 4.2.7.2.686 Juan as [id number] [place] [address] Branch 2022-11-20 2022-11-20 Telephone [facility] 1.2.840.11 [id number] Univers 00:00:00 00:00:00 Ruddy BULLARD 350.1.13.10 [place] [facility] [place] [facility] [id number] [address] 2022-11-16 2022-11-16 Telephone [facility] 1.2.840.11 [id number] Univers 00:00:00 00:00:00 Ruddy BULLARD 350.1.13.10 it y of [facility] 4.2.7.2.686 [facility] [id number] [address] 2022-11-15 2022-11-15 Outpatient R RUDDY COLBERT [facility] B [id number] Univers 14:30:00 15:04:36 RUDDY COLBERT ity of [facility] 2022-11-15 2022-11-15 Office [facility] 1.2.840.114 [id number] Univers 14:30:00 15:04:36 Visit Ruddy BULLARD 350.1.13.10 [place] [id number] [address] 2022-11-14 2022-11-14 Outpatient R RUDDY COLBERT [facility] B [id number] Univers 15:00:00 15:16:26 [facility] 2022-11-14 2022-11-14 Office [facility] 1.2.840.114 [id number] Univers 15:00:00 15:16:26 Visit Ruddy BULLARD 350.1.13.10 [place] [id number] [address] 2022-11-10 2022-11-10 Out[facility] [id number] Univers 13:00:00 13:04:39 [facility] 2022-11-10 2022-11-10 Office [facility] 1.2.840.114 [id number] Univers 13:00:00 13:04:39 Visit Ruddy BULLARD 350.1.13.10 it [place] [id number] [address] 2022-11-10 2022-11-10 Orders Doctor ESTUARDO 1.2.840.114 [id number] Univers 00:00:00 00:00:00 Only Unassigned, [place] 350.1.13.10 ity of [place] [facility] 4.2.7.2.686 Juan as [phone] [facility] 009 Branch 2020-11-02 2020-11-02 Patient THU Fermin 1.2.840.114 [id number] Univers 00:00:00 00:00:00 Outreach Declan BULLOCK 350.1.13.10 i ty of [facility] 4[place]2.7.2.686 [place] [id number] Ne dical [address] Branch 2020-01-07 2020-01-07 Office Starla NHJUAN 1.2.840.114 [id number] Univers 09:23:30 10:10:21 Visit Rashid R PHOTOGRAPHY AND PRINTS CURATOR 350.1.13.10 ity of [facility] 4.2.7.2.686 Juan as MATERNAL [id number] [facility] ical & CHILD [address] [place] [address] 2020-01-07 2020-01-07 Out[facility] [id number] [facility] 09:00:00 09:00:00 RASHID gaoy o f [facility] 2020-01-07 2020-01-07 Orders Doctor ESTUARDO 1.2.840.114 [id number] [facility] 00:00:00 00:00:00 Only Unassigned, LUKE 350.1.13.10 ity of [facility] 4.2.7.2.686 Juan as [phone] [address] 2019-12-16 2019-12-16 Outpatient [facility] [id number] [facility] 09:15:00 09:15:00 RASHID shahnaz o oscar [facility] 2019-12-16 2019-12-16 [facility] 1.2.840.114 [id number] [facility] 07:34:01 09:03:14 ne Visit Rashid Kidd PHOTOGRAPHY AND PRINTS CURATOR 350.1.13.10 ity of [facility] 4.2.7.2.686 Juan as MATERNAL [id number] [facility] & CHILD [address] [place] [address] 2019-12-16 2019-12-16 [facility] 1.2.840.114 [id number] 07:34:01 09:03:14 ne Visit Rashid R PHOTOGRAPHY AND PRINTS CURATOR 350.1.13.10 REGIONAL 4.2.7.2.686 MATERNAL [id number] & CHILD [address] [place] [address] 2019-11-28 2019-11-28 Nurse Visit, Han-Rmchp Nurse [facility] 1.2 .840.114 [id number] [facility] 14:57:15 15:27:42 Visit Carla Rajan PHOTOGRAPHY AND PRINTS CURATOR 350.1.13. 10 ity of [facility] 4.2.7.2.686 Juan as MATERNAL [id number] [facility] ical & CHILD [address] [place] [address] 2019-11-28 2019-11-28 Nurse Visit, [facility] 1.2.840.114 [id number] 14:57:15 15:27:42 Visit [facility] PHOTOGRAPHY AND PRINTS CURATOR 350.1.13.10 Nurse [facility] 4.2.7.2.686 MATERNAL [id number] & CHILD [address] [place] [address] 2019-11-28 2019-11-28 Outpatient R AKINSIPE, [facility] [id number] Univers 15:00:00 15:00:00 CARLA ity o f [facility] 2019-11-25 2019-11-25 Outpatient R AKINSIPE, [facility] [id number] Univers 09:30:00 09:30:00 CARLA ity o [facility] 2019-11-25 2019-11-25 Outpatient R AKINSIPE, [facility] [id number] Univers 09:15:00 09:15:00 CARLA ity o [facility] 2019-11-22 2019-11-24 [facility] [id number] [facility] 11:49:00 12:16:00 Encounter Fidelia [place] 350.1.13.10 ity of HOSPITAL 4.2.7.2.686 Juan as [id number] [address] 2019-11-22 2019-11-24 [facility] 1.2.871.931 [id number] 11:49:00 12:16:00 Encounter Fidelia [place] 350.1.13.10 [facility] 4.2.7.2.686 [id number] [facility] 2019-11-18 2019-11-18 Routine Akinsipe, [facility] [id number] [facility] 08:34:45 08:55:27 Carla C PHOTOGRAPHY AND PRINTS CURATOR 350.1.13.10 ity of Visit [facility] 4.2.7.2.686 Juan as MATERNAL [id number] [facility] ical & CHILD [address] [place] [address] 2019-11-18 2019-11-18 Routine Akinsipe, [facility] [id number] 08:34:45 08:55:27 Carla C PHOTOGRAPHY AND PRINTS CURATOR 350.1.13.10 Visit REGIONAL 4.2.7.2.686 MATERNAL [id number] & CHILD 107 [email or web address] 2019-11-18 2019-11-18 Outpatient R AKINSIPE, [facility] [id number] Univers 08:45:00 08:45:00 CARLA ity o f [facility] 2019-11-11 2019-11-11 Routine Akinsipe, [facility] [id number] Univers 08:49:21 09:26:07 Carla C PHOTOGRAPHY AND PRINTS CURATOR 350.1.13.10 ity of Visit REGIONAL 4.2.7.2.686 Juan as MATERNAL [id number] Med ical & CHILD [address] [place] [address] 2019-11-11 2019-11-11 Routine Akinsi, [facility] 1.2.369.430 [id number] 08:49:21 09:26:07 Carla C PHOTOGRAPHY AND PRINTS CURATOR 350.1.13.10 Visit REGIONAL 4.2.7.2.686 MATERNAL [id number] & CHILD 107 [facility] [[email or web address]] 2019-11-11 2019-11-11 Outpatient R AKINSIPE, [facility] [id number] Univers 09:00:00 09:00:00 CARLA ity o f [facility] 2019-10-27 2019-10-27 Routine Akinsipe, [facility] 1.2.325.815 [id number] Univers 09:42:46 12:09:33 Carla C PHOTOGRAPHY AND PRINTS CURATOR 350.1.13.10 ity of Visit REGIONAL 4.2.7.2.686 Juan as MATERNAL [id number] Med ical & CHILD [address] [place] [address] 2019-10-27 2019-10-27 Outpatient R AKINSIPE, [facility] [id number] Univers 09:30:00 09:30:00 CARLA ity o f [facility] 2019-10-13 2019-10-13 Routine Faculty[facility] 1.2 .840.114 [id number] Univers 08:47:13 11:29:01 Leandro Neff PHOTOGRAPHY AND PRINTS CURATOR 350.1.13.10 ity of Visit REGIONAL 4.2.7.2.686 Juan as MATERNAL [id number] Med ical & CHILD 107 [facility] 2019-10-13 2019-10-13 Outpatient R [facility] [id number] Univers 09:00:00 09:00:00 ity of [facility] 2019-10-09 2019-10-09 Orders Doctor ESTUARDO 1.2.840.114 [id number] Univers 00:00:00 00:00:00 Only Unassigned, [place] 350.1.13.10 ity of [place] [facility] 4.2.7.2.686 Juan as [id number] [address] 2019-10-02 2019-10-02 [facility] Nurse [facility] 1.2 .840.114 [id number] Univers 09:02:47 09:32:54 Visit Carla Rajan PHOTOGRAPHY AND PRINTS CURATOR 350.1.13. 10 ity of [facility] 4.2.7.2.686 Juan as MATERNAL [id number] [facility] ical & CHILD [address] [place] [address] 2019-10-01 2019-10-01 World Designer Ultrasound, Rebecabrandy [facility] 1.2 .840.114 [id number] Univers 09:01:49 10:01:49 Visit Carla Rajan PHOTOGRAPHY AND PRINTS CURATOR 350.1.13. 10 ity of [facility] 4.2.7.2.686 Juan as MATERNAL [id number] [facility] ical & CHILD 369 [facility] 2019-10-01 2019-10-01 World Designer Lab, Qian [facility] 1.2.840. 114 [id number] Univers 08:36:33 08:41:17 Visit Carla Rajan PHOTOGRAPHY AND PRINTS CURATOR 350.1.13. 10 ity of [facility] 4.2.7.2.686 Juan as MATERNAL [id number] [facility] & CHILD [address] [place] [address] 2019-10-01 2019-10-01 Abstract Satinder NHJUAN 1.2.840.114 [id number] Univers 00:00:00 00:00:00 Carla Elias PHOTOGRAPHY AND PRINTS CURATOR 350.1.13.10 ity of [facility] 4.2.7.2.686 Juan as MATERNAL [id number] [facility] ical & CHILD [address] [place] [address] 2019-10-01 2019-10-01 Telephone [facility], [facility] 1.2.840.114 [id number] Univers 00:00:00 00:00:00 Carla C PHOTOGRAPHY AND PRINTS CURATOR 350.1.13.10 ity of [facility] 4.2.7.2.686 Juan as MATERNAL [id number] [facility] & CHILD [address] [place] [address] 2019-09-30 2019-09-30 Initial [facility], [facility] 1.2.195.883 [id number] Univers 13:30:37 14:59:32 Carla C PHOTOGRAPHY AND PRINTS CURATOR 350.1.13.10 ity of Visit [facility] 4.2.7.2.686 Juan as MATERNAL [id number] [facility] & CHILD [address] [place] [address] 2019-09-30 2019-09-30 Orders Doctor ESTUARDO 1.2.840.114 [id number] Univers 00:00:00 00:00:00 Only Unassigned, [place] 350.1.13.10 [place] [facility] [id number] Juan as [phone] [address] Results Test Description Test Time Test Comments Results Result Comments Source POCT TEST 2022-11-15 19:42:00 Test Item Value Reference Range Interpretation Comme nts POCT PREG (test code = 1605) Negative On board controls acceptable with C Line (test code = 3574) Yes POCT PREG LOT # (test code = 3575) POCT PREG TEST DATE (test code = 3576) [facility] [id number] 19:42:00 Test Item Value Reference Range Interpretation Comments POCT PREG (test code = 1605) Negative On board controls acceptable with C Yes Line (test code = 3574) POCT PREG LOT # (test code = 3575) POCT PREG TEST DATE (test code = 3576) [facility] [id number] 14:33:00 Test Item Value Reference Range Interpretation Comments POCT PREG (test code = 1605) Negative On board controls acceptable with C Yes Line (test code = 3574) POCT PREG LOT # (test code = 3575) POCT PREG TEST DATE (test code = 3576) [facility] [id number] 14:33:00 Test Item Value Reference Range Interpretation Comments POCT PREG (test code = 1605) Negative On board controls acceptable with C Yes Line (test code = 3574) POCT PREG LOT # (test code = 3575) POCT PREG TEST DATE (test code = 3576) [facility] - SYPHILIS [id number] 15:38:00 Test Item Value Reference Range Interpretation Comments Syphilis IgG/IgM (test Non-reactive Non-reactive code = 88003-2) JOSE RAFAEL (test code = JOSE RAFAEL) Non-reactive - No serologic evidence of T. pallidum infection. Cannot exclude incubating or early syphilis. Submit a second specimen in 2-4 weeks if syphilis is clinically suspected. Equivocal - Further testing to follow. Reactive - Further testing to follow. Lab Interpretation (test Normal code = 68837-9) [facility] WITH [id number] 09:57:00 Test Item Value Reference Range Interpretation Comments WBC (test code = See_Comment H [Automated 7590-2) message] The system which generated this result transmit gianna reference range : 4.50 - 13.50 10*3/?L. The reference range was not used to interpret this result as normal/abnormal . RBC (test code = See_Comment L [Automated 419-8) message] The system which generated this result [...] RDW-SD (test code = 44.9 fL 38.5-49 10582-2) RDW-CV (test code = 13.5 % 11.5-14 788-0) PLT (test code = See_Comment [Automated 777-3) message] The system which generated this result transmit gianna reference range : 135 - 361 10*3/ ?L. The reference range was not u sed to interpret th is result as normal/abnormal . MPV (test code = 11.5 fL 9.4-13.3 21905-6) NRBC/100 WBC (test See_Comment [Automat ed code = 5506712086) message] The system which generated this result transmit gianna reference range : 0.0 - 10.0 /100 WBCs. The reference range was not used to interpret this result as normal/abnormal . NRBC x10^3 (test code <0.01 See_Comment [Auto mated = 0157002133) message] The system which generated this result transmit gianna reference range : 10*3/?L. The reference range was not used to interpret this result as normal/abnormal . GRAN MAT (NEUT) % 82.3 % (test code = 770-8) IMM GRAN % (test code 1.00 % = 0223408739) LYMPH % (test code = 10.2 % 736-9) MONO % (test code = 5.6 % 5905-5) EOS % (test code = 0.5 % 713-8) BASO % (test code = 0.4 % 706-2) GRAN MAT x10^3(ANC) 14.09 10*3/uL 1.5-10.3 H (test code = 6430281297) IMM GRAN x10^3 (test 0.17 10*3/uL 0-0.06 H code = 2307367736) LYMPH x10^3 (test code 1.74 10*3/uL 0.7-7.4 = 731-0) MONO x10^3 (test code 0.96 10*3/uL 0-0.5 H = 742-7) EOS x10^3 (test code = 0.09 10*3/uL 0-0.4 711-2) BASO x10^3 (test code 0.06 10*3/uL 0-0.1 = 704-7) BANDS (test code = Increased A 8966993549) Lab Interpretation Abnormal (test code = 47057-4) [facility] IMMUNE [id number] 04:07:12 Test Item Value Reference Range Interpretation Comments RHIG CANDIDATE? No- see comment Patient i s not a (test code = candidate for R hIg- 5055) Patient is Rh Positive.Perfor med at [facility] Laboratory Services - [facility] Blood [address] [place] [id number] Free: [phone] A No. [id number] [facility] BranchARTERIAL CORD [id number] 23:57:00 Test Item Value Reference Range Interpretation Comments BASE EXCESS, CORD (test mEq/L code = 8429102951) AC PH, CORD (BEAKER) 7.18-7.38 (test code = 6240352272) PC02, CORD (test code = See_Comment H [Au tomated message] 8338013784) The system [employer] generated this result transmitted ref erence range: 32 - 66 mmHg. The reference r devin was not used to interpret this result as normal/abnor mal. PO2, CORD (test code = See_Comment [Aut omated message] 8376475094) The system [employer] generated this result transmitted ref erence range: 10 - 30 mmHg. The reference r devin was not used to interpret this result as normal/abnor mal. BICARBONATE, CORD (test See_Comment H [Au tomated message] code = 6831259039) The syste m which generated this result transmitted ref erence range: 17 - 27 mEq/L. The reference r devin was not used to interpret this result as normal/abnor mal. Lab Interpretation (test Abnormal code = 08642-5) [facility]ORD [id number] 23:52:00 Test Item Value Reference Range Interpretation Comments VENOUS BASE EXCESS, CORD mEq/L (test code = 4218862755) VENOUS PH, CORD (test 7.25-7.45 code = 5792229335) VENOUS PC02, CORD (test See_Comment H [Au tomated message] code = 6742390136) The syste m which generated this result transmitted ref erence range: 27 - 49 mmHg. The reference r devin was not used to interpret this result as normal/abnor mal. VENOUS PO2, CORD (test See_Comment [Aut omated message] code = 2427154364) The syste m which generated this result transmitted ref erence range: 17 - 41 mmHg. The reference r devin was not used to interpret this result as normal/abnor mal. VENOUS BICARBONATE, CORD See_Comment [A utomated message] (test code = 7203688549) The system which generated this result transmitted ref erence range: 12 - 29 mEq/L. The reference r devin was not used to interpret this result as normal/abnor mal. Lab Interpretation (test Abnormal code = 23771-9) [facility] B Surface [id number] 22:06:00 Test Item Value Reference Range Interpretation Comments HBsAg Semi-Quantitative (test code = Negative Negative 5195-3) [facility] Paso[facility] and Screen - ONCE [id number] 21:39:44 Test Item Value Reference Range Interpretation Comments ABO & RH (test code O POSITIVE Performe d at [facility] = 20) Laboratory Serv [facility]3 [address] [facility] s [address]Mbdq Free: [phone] A No. [id number] IAT (test code = Negative Performed a t [facility] 1185) Laboratory Serv [facility] [address] [facility] [address] [address]Jaly Free: [phone] A No. [id number] [facility] PasoCORONAVIRUS COVID-19 [id number] 18:00:00 Test Item Value Reference Range Interpretation Comments SARS-CoV-2 (test code = Not Detected Not Detected 74489-5) JOSE RAFAEL (test code = JOSE RAFAEL) ID NOW COVID-19 Assay is an isothermal nucleic acid amplification test intended for the qualitative detection of nucleic acid from SARS-CoV-2 viral RNA in nasopharyngeal (MARKETING FORECASTER) specimens. It is used under Emergency Use [...] indicated. Lab Interpretation Normal (test code = 02617-2) [facility] URINALYSIS W SPECIFIC [id number] 13:49:00 Test Item Value Reference Range Interpretation [...] POCT U APPEAR (test code = 3267) [facility] URINALYSIS W SPECIFIC [id number] 14:00:00 Test Item Value Reference Range Interpretation [...] POCT U APPEAR (test code = 3267) [facility] URINALYSIS W SPECIFIC [id number] 14:00:00 Test Item Value Reference Range Interpretation [...] POCT U APPEAR (test code = 3267) [facility] URINALYSIS W SPECIFIC [id number] 17:09:00 Test Item Value Reference Range Interpretation [...] POCT U APPEAR (test code = 3267) [facility] URINALYSIS W/O SPECIFIC [id number] 19:35:00 Test Item Value Reference Range Interpretation [...] code = 3257) Neg Negative - [facility] [id number] 19:35:00 Test Item Value Reference Range Interpretation [...] code = 3257) Neg Negative - Negative [facility] URINALYSIS W/O SPECIFIC [id number] 19:35:00 Test Item Value Reference Range Interpretation [...] code = 3257) Neg Negative - Negative [facility]IFIC [id number] 19:35:00 Test Item Value Reference Range Interpretation [...] code = 3257) Neg Negative - Negative [facility] [id number] 19:34:00 Test Item Value Reference Range Interpretation Comments POCT PREG (test code = 1605) Positive On board controls acceptable with C Yes Line (test code = 3574) POCT PREG LOT # (test code = 3575) POCT PREG TEST DATE (test code = 3576) [facility] [id number] 19:34:00 Test Item Value Reference Range Interpretation Comments POCT PREG (test code = 1605) Positive On board controls acceptable with C Yes Line (test code = 3574) POCT PREG LOT # (test code = 3575) POCT PREG TEST DATE (test code = 3576) [facility] [id number] 19:34:00 Test Item Value Reference Range Interpretation Comments POCT PREG (test code = 1605) Positive On board controls acceptable with C Yes Line (test code = 3574) POCT PREG LOT # (test code = 3575) POCT PREG TEST DATE (test code = 3576) [facility] [id number] 19:34:00 Test Item Value Reference Range Interpretation Comments POCT PREG (test code = 1605) Positive On board controls acceptable with C Yes Line (test code = 3574) POCT PREG LOT # (test code = 3575) POCT PREG TEST DATE (test code = 3576) [facility]
[2023-02-06 09:31] LABS: Hematocrit 36.5 % (36.0-45.0); MCV 83.7 fL (80-100); MPV 9.8 fL (7.6-11.3); RBC Red Blood Cell Count 4.35 M/uL (3.86-4.86)
[2023-02-06 09:37] LABS: BUN Blood Urea Nitrogen 12 mg/dL (7-18); Bicarbonate 29 mEq/L (21-32); Glomerular Filtration Rate 132 ml/min (=/>90); Glucose Level 133 mg/dL (74-106); Potassium 3.6 mEq/L (3.5-5.1); Sodium Level 138 mEq/L (136-145)
[2023-02-06 09:40] LABS: Troponin High Sensitivity < 3.0 pg/mL (<58.9)
--- NOTE | 2023-02-06 09:47 | RAD REPORT ---
EXAM DESCRIPTION: CT - CTHCSPWOC - 02/06/2023 9:25 am CLINICAL HISTORY: Trauma, head and neck injury. syncope, head injury COMPARISON: No comparisons TECHNIQUE: Axial 5 mm thick images of the head were obtained. Axial 2 mm thick images of the cervical spine were obtained with sagittal and coronal reconstruction images generated and reviewed. All CT scans are performed using dose optimization technique as appropriate and may include automated exposure control or mA/KV adjustment according to patient size. FINDINGS: CT HEAD WITHOUT CONTRAST: No acute hemorrhage, hydrocephalus or extra-axial collection is identified.No areas of brain edema or midline shift. The paranasal sinuses and mastoids are clear.The calvarium is intact. CT CERVICAL SPINE WITHOUT CONTRAST: No fracture or subluxation.No prevertebral soft tissues swelling is identified. IMPRESSION: No acute intracranial or cervical spine findings.
[2023-02-06] MEDS ORDERED: Ringers Lactate 1,000 ML IV ONE (10:14)
[2023-02-06 10:38] LABS: Specific Gravity 1.025 (1.005-1.030); Urine Bacteria None Seen /HPF (<20); Urine Bilirubin NEGATIVE (Negative); Urine Blood Negative (Negative); Urine Clarity Turbid (Clear); Urine Color Light-Yellow (Yellow); Urine Glucose NEGATIVE (Negative); Urine Mucus 1+ /HPF (None Seen); Urine Protein TRACE (Negative); Urine RBC <5 /HPF (None Seen); Urine Urobilinogen 1+ (Normal); Urine pH 8.5 (5.0-7.0)
[2023-02-06 10:39] LABS: Specific Gravity 1.025 (1.005-1.030)
[2023-02-06] MEDS ORDERED: LIDOCAINE 1% W/EPI 1:100,000 50 ML MDV ONE (10:42)
[2023-02-06] MEDS ORDERED: NA CHLORIDE 0.9% 50 ML ONE (11:49)
[2023-02-06] MEDS ORDERED: CEFTRIAXONE 500 MG/VIAL ONE (11:49)
--- NOTE | 2023-02-06 12:32 | EDPHYS ---
Physician Documentation [facility] Name: Atiya Castellanos Age: 22 yrs Sex: Female : 2000 Arrival Date: 02/06/2023 Time: 08:33 Bed 7 Private MD: ED Physician Mushtaq Perez HPI: 02/06 08:50 This 22 yrs old Female presents to ER via Ambulatory with complaints of Passed Out jmm Prior To Arrival. 08:50 The patient has experienced syncope. Onset: The symptoms/episode began/occurred jmm acutely, just prior to arrival. Duration: This was a single episode, that lasted an unknown period of time. Associated injury: Head/face:. Associated signs and symptoms: Pertinent negatives: abdominal pain, blurred vision, chest pain. The patient has not experienced similar symptoms in the past. Patient denies chest pain, shortness of breath, abdominal pain, vomiting, diarrhea.. 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 - Social history:: Smoking status: Patient denies any tobacco usage or history of. ROS: 08:50 Constitutional: Negative for fever, chills, and weight loss, Cardiovascular: Negative jmm for chest pain, palpitations, and edema, Respiratory: Negative for shortness of breath, cough, wheezing, and pleuritic chest pain. 08:50 Neuro: Positive for syncope. 08:50 All other systems are negative. Exam: 08:50 Constitutional: This is a well developed, well nourished patient who is awake, alert, jmm and in no acute distress. Head/Face: atraumatic. Eyes: EOMI, no conjunctival erythema appreciated 08:50 Chest/axilla: Normal chest wall appearance and motion. Cardiovascular: Regular rate and rhythm. No edema appreciated Respiratory: Normal respirations, no respiratory distress appreciated Abdomen/GI: Non distended Back: Normal ROM 08:50 ENT: Small laceration noted to the upper lip mucosa. 08:50 Skin: Small laceration noted to the right upper lip mucosa. 08:50 Neuro: Orientation: is normal, Mentation: is normal, Memory: is normal. 08:50 Psych: Behavior/mood is pleasant, cooperative. Vital Signs: 08:46 BP 112 / 60; Pulse 71; Resp 15; Temp 97.9; Pulse Ox 99% ; Weight 68.95 kg; Height 5 ft. jl7 0 in. ; Pain 7/10; 10:28 BP 104 / 57; Pulse 67; Resp 18; Pulse Ox 100% on R/A; ph 12:37 BP 109 / 61 Supine; Pulse 73; ph 12:37 BP 107 / 68 Sitting; Pulse 76; ph 12:37 BP 112 / 72 Standing; Pulse 76; Resp 18; Temp 98; Pulse Ox 99% on R/A; ph 08:46 Body Mass Index 29.69 (68.95 kg, 152.4 cm) [facility] 08:46 Pain Scale: Adult jl7 MDM: 08:50 Patient medically screened. [facility] 08:50 Differential Diagnosis: cardiac arrhythmia, cerebrovascular accident, pseudo seizure, [facility] seizure, vasovagal episode. 15:06 Data reviewed: vital signs, nurses notes, lab test result(s), EKG, radiologic studies, [facility] CT scan. Consideration of Admission/Observation Escalation of care including admission/observation considered. Counseling: I had a detailed discussion with the patient and/or guardian regarding: the historical points, exam findings, and any diagnostic results supporting the discharge/admit diagnosis, lab results, radiology results, the need for outpatient follow up, to return to the emergency department if symptoms worsen or persist or if there are any questions or concerns that arise at home. ED course: Patient states feeling much better. Was able to ambulate without difficulty. Imaging studies were negative. Labs unremarkable. Patient advised follow-up PCP and otherwise given strict return precautions. Patient understood and agrees to plan of care.. 02/06 08:51 Order name: Basic Metabolic Panel; Complete Time: 09:40 [facility] 02/06 08:51 Order name: CBC with Diff; Complete Time: 09:38 [facility] 02/06 08:51 Order name: Troponin HS; Complete Time: 09:40 [facility] 02/06 08:55 Order name: Test, Urine; Complete Time: 10:45 [facility] 02/06 08:55 Order name: Urinalysis w/ reflexes; Complete Time: 10:45 [facility] 02/06 08:51 Order name: CT Head C Spine; Complete Time: 09:49 [facility] 02/06 08:51 Order name: EKG; Complete Time: 08:51 [facility] 02/06 08:51 Order name: Cardiac monitoring; Complete Time: 09:32 [facility] 02/06 08:51 Order name: EKG - Nurse/Tech; Complete Time: 09:32 [facility] 02/06 08:51 Order name: IV Saline Lock; Complete Time: 09:32 [facility] 02/06 08:51 Order name: Labs collected and sent; Complete Time: 09:32 [facility] 02/06 08:51 Order name: O2 Per Protocol; Complete Time: 09: [facility] 02/06 08:51 Order name: O2 Sat Monitoring; Complete Time: 09:32 [facility] 02/06 11:55 Order name: Orthostatic Blood Pressure; Complete Time: 12:48 [facility] Administered Medications: 10:27 Drug: Lactated Ringers Solution IV 1000 ml Route: IV; Rate: 1000 bolus; Site: right ph antecubital; 12:48 Follow up: Response: No adverse reaction; IV Status: Completed infusion; IV Intake: ph 1000ml 11:26 Drug: Lidocaine-Epinephrine Infiltration -1%: (1:100,000) 20 ml {Note: per PA. Andrew} ph Volume: 20 ml; Route: Infiltration; 12:48 Follow up: Response: No adverse reaction ph Disposition: 02/07 09:41 Co-signature as Attending Physician, Mushtaq Perez MD I reviewed the patient's care rt provided by the Advanced Practice Provider and agree with the diagnosis and treatment plan. Disposition Summary: 02/06/23 12:31 Discharge Ordered Location: Home [facility] Condition: Stable [facility] Diagnosis - Syncope [facility] Followup: [facility] - With: Private Physician - When: 2 - 3 days - Reason: Recheck today's complaints, Continuance of care, Re-evaluation by your physician Discharge Instructions: - Discharge Summary Sheet [facility] - Syncope [facility] Forms: - Medication Reconciliation Form [facility] - Thank You Letter jmm - Antibiotic Education jmm - Prescription Opioid Use jm - [email or web address] [facility] Signatures: Dispatcher [employer] Andrew Seals PA PA jmm Hall, Patricia, RN RN ph Alejandra Coon RN RN jl7 Mushtaq Perez MD MD rt
--- NOTE | 2023-02-06 12:32 | ER ---
Nurse's Notes [facility] Name: Atiya Castellanos Age: 22 yrs Sex: Female : 2000 Arrival Date: 02/06/2023 Time: 08:33 Bed 7 Private MD: Diagnosis: Syncope Presentation: 02/06 08:46 Chief complaint: Patient states: Went to the bathroom and woke up on the floor at 0810, jl7 hit right side of face and lip. Coronavirus screen: At this time, the client does not indicate any symptoms associated with coronavirus-19. Ebola Screen: No symptoms or risks identified at this time. Initial Sepsis Screen: Does the patient meet any 2 criteria? No. Patient's initial sepsis screen is negative. Does the patient have a suspected source of infection? No. Patient's initial sepsis screen is negative. Risk Assessment: Do you want to hurt yourself or someone else? Patient reports no desire to harm self or others. Onset of symptoms was February 06, 2023 at 08:10. 08:46 Method Of Arrival: Ambulatory [facility] 08:46 Acuity: CHRIS 3 jl7 Triage Assessment: 08:48 General: Appears in no apparent distress. uncomfortable, Behavior is calm, cooperative, jl7 appropriate for age. Pain: Complains of pain in face Pain currently is 7 out of 10 on a pain scale. 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 - Social history:: Smoking status: Patient denies any tobacco usage or history of. Screenin:13 [facility] ED Fall Risk Assessment (Adult) History of falling in the last 3 months, ph including since admission No falls in past 3 months (0 pts) Confusion or Disorientation No (0 pts) Intoxicated or Sedated No (0 pts) Impaired Gait No (0 pts) Mobility Assist Device Used No (0 pt) Altered Elimination No (0 pt) Score/Fall Risk Level 0 - 2 = Low Risk Oriented to surroundings, Maintained a safe environment, Provided non-skid footwear, Hourly rounding (assess needs \T\ fall precautionary measures) done. Abuse screen: Denies threats or abuse. Denies injuries from another. Nutritional screening: No deficits noted. Tuberculosis screening: No symptoms or risk factors identified. Assessment: 09:30 General: Appears in no apparent distress. Behavior is calm, cooperative. Pain: ph Complains of pain in face. Neuro: Level of Consciousness is awake, alert, obeys commands, Oriented to person, place, time, situation, Reports dizziness. Cardiovascular: Reports lightheadedness, syncope, Capillary refill < 3 seconds in bilateral fingers Patient's skin is warm and dry. Respiratory: Airway is patent Respiratory effort is even, unlabored. Derm: Skin is healthy with good turgor, Skin is pink, warm \T\ dry. Musculoskeletal: Circulation, motion, and sensation intact. Range of motion: intact in all extremities. Vital Signs: 08:46 BP 112 / 60; Pulse 71; Resp 15; Temp 97.9; Pulse Ox 99% ; Weight 68.95 kg; Height 5 ft. jl7 0 in. ; Pain 7/10; 10:28 BP 104 / 57; Pulse 67; Resp 18; Pulse Ox 100% on R/A; ph 12:37 BP 109 / 61 Supine; Pulse 73; ph 12:37 BP 107 / 68 Sitting; Pulse 76; ph 12:37 BP 112 / 72 Standing; Pulse 76; Resp 18; Temp 98; Pulse Ox 99% on R/A; ph 08:46 Body Mass Index 29.69 (68.95 kg, 152.4 cm) jl7 08:46 Pain Scale: Adult jl7 ED Course: 08:34 Patient arrived in ED. rg4 08:35 Andrew Wei PA is PHCP. jmm 08:35 Mushtaq Perez MD is Attending Physician. jmm 08:48 Triage completed. jl7 08:48 Arm band placed on right wrist. jl7 09:13 Roz Mojica, LEONORA is Primary Nurse. ph 09:13 Inserted saline lock: 20 gauge in right antecubital area, using aseptic technique. ph Blood collected. 09:26 CT Head C Spine In Process Unspecified. EDMS 10:30 Patient has correct armband on for positive identification. Placed in gown. Bed in low ph position. Call light in reach. Side rails up X2. Pulse ox on. NIBP on. Door closed. Noise minimized. Lights dimmed. Warm blanket given. 12:40 No provider procedures requiring assistance completed. IV discontinued, intact, ph bleeding controlled, No redness/swelling at site. Pressure dressing applied. Administered Medications: 10:27 Drug: Lactated Ringers Solution IV 1000 ml Route: IV; Rate: 1000 bolus; Site: right ph antecubital; 12:48 Follow up: Response: No adverse reaction; IV Status: Completed infusion; IV Intake: ph 1000ml 11:26 Drug: Lidocaine-Epinephrine Infiltration -1%: (1:100,000) 20 ml {Note: per LIZBETH Morales.} ph Volume: 20 ml; Route: Infiltration; 12:48 Follow up: Response: No adverse reaction ph Medication: 09: VIS not applicable for this client. ph Intake: 12:48 IV: 1000ml; Total: 1000ml. ph Outcome: 12:31 Discharge ordered by . tammie 12:40 Discharged to home ambulatory. ph 12:40 Condition: good 12:40 Discharge instructions given to patient, Instructed on discharge instructions, follow up and referral plans. Demonstrated understanding of instructions, follow-up care. 12:49 Patient left the ED. ph Signatures: Dispatcher [employer] EDMS Andrew Wei PA PA jmm Hall, Patricia RN Nancy Jimenez ph rg4 Alejandra Coon RN RN jl7
[2023-02-06 13:23] VITALS: BP 112/72; TEMP 98; O2SAT 99
--- NOTE | 2023-02-06 20:35 | EKG ---
Test Date: 2023-02-06 Test Time: 09:17:27 [employer] Engineer: RANDY MEASUREMENT RESULTS: Intervals: Rate: 71 DE: 156 QRSD: 80 QT: 390 QTc: 423 [place]: P: 48 DE: 156 QRS: 72 T: 53 INTERPRETIVE STATEMENTS: Normal sinus rhythm Normal ECG Compared to ECG 07/15/2021 22:42:27 No significant changes Electronically Signed On 02-06-23 20:32:42 CDT by Epifanio Brito
== END 2023-02-06 12:49 | disposition home or self-care (01) ==
LOC: ER 08:33
DX: R55 Syncope and collapse (principal); Z91.011 Allergy to milk products; Z91.018 Allergy to other foods
CPT/HCPCS: 93005; 85025; 81001; 80048; 36415; 81025; 84484; 70450; 72125; J7120

== ENCOUNTER 2023-04-14 00:04 | Emergency (ER) | payer SELFPAY ==
--- OUTSIDE RECORDS SUMMARY | 2023-04-14 00:12 | XMS REPORT | Continuity of Care Document ---
:2000 Author Organization [facility] [place] [facility] t Address [address] [place] [address] [address] [place] [address] Care Team Providers Name Role Phone ULYSSES PERERA Micheal Primary Care Physician Unavailable RUDDY COLBERT Attending Clinician Unavailable RUDDY COLBERT Attending Clinician Unavailable Brittni Martínez RN Attending Clinician Unavailable Doctor Unassigned, [place] Attending Clinician Unavailable RASHID CHA Attending Clinician Unavailable Declan Fermin DO Attending Clinician Rashid Moses Attending Clinician Visit, Qian Nurse Attending Clinician Unavailable Carla Ramos Attending Clinician [phone] CARLA RAJAN Attending Clinician Unavailable Fidelia Billings MD Attending Clinician Faculty, Han Marquez Attending Clinician Unavailable Leandro Neff MD Attending Clinician Ultrasound, [place] Attending Clinician Unavailable Lab, Qian Attending Clinician Unavailable Fidelia Billings MD Admitting Clinician Payers Payer Name Policy Type Policy Number Effective Date Expiration Date Belinda [employer] [id number] 2019 HEALTH 00:00:00 Problems Condition Condition Condition Status Onset Resolution Last Treating Co mments Source Name Details Category Date Date Treatment Clinician Date Encounter Encounter Disease Active Uni vers for IUD for IUD 4-04 [place] [facility] [place] Counseling Counseling Disease Active U nivers for for 3-31 ity of control control 00:00: [place] regarding regarding [facility] intrauteri intrauteri Br anch ne device ne device (IUD) (IUD) Nexplanon Nexplanon Disease Active Uni vers removal removal 3-31 ity of 00:00: [address] Disease Active U nivers care and care and 5-05 ity of examin[place] examin[place] 00 Medical immediatel immediatel Br anch y after y after delivery delivery BMI BMI Disease Active Univers 30.0-30.9, 30.0-30.9, 4-11 it y of adult adult 00:00: [place] [facility] 37 weeks 37 weeks Disease Active Unive rs gestation gestation 4-11 ity of of of 00:00: [place] 00 [facility] Branch Chlamydia Chlamydia Disease Active Overview: Univers infection infection -19 Formattin i ty of during during 00:00: g of this [place] 00 note [facility] might be Branch different from the original. Pending MICHAEL -neg Gonorrhea Gonorrhea Disease Active Overview: Univers in in -19 Formattin ity of 00:00: [place] of [place] 00 note Medical might be Branch different from the original. MICHAEL at next visit -neg Susceptibl Susceptibl Disease Active Overview : Univers e to e to -19 Formattin ity of varicella varicella 00:00: [place] of [place] (non-immun (non-immun 00 note Me dical e), e), might be Branch currently currently different from the original. Address pp Supervisio Supervisio Disease Active U nivers n of n of 2-18 ity of high-risk high-risk 00:[place] [facility] with with Branch insufficie insufficie nt nt care care Over Over Disease Active 2019-0 Univers weight weight 2-18 ity of 00:00: [...] year History of History of Disease Active 2020 Overview : Univers anxiety anxiety 2-18 Formattin ity o f 00:00: g of this note Medical might be Branch different from the original. Not on meds x1 year History of History of Disease Active 2020- Overview : Univers 2-18 Formattin ity o f delivery delivery 00:00: g of this [place] note Medical might be Branch different from the original. Reports delivery at 31weeks ROR requested History of History of Disease Active 2020-0 U nivers ADHD ADHD 2-18 ity of 00:00: Medical Branch Family Family Disease Active 20200 Overview: Univer s history of history of [...] 2-18 it y of adult adult 00:00: [place] [facility] Allergies, Adverse Reactions, Alerts Allergy Allergy Status Severity Reaction(s) Onset Inactive Treating Comm ents Source Name Type Date Date Clinician Bee Propensi Active Anaphylaxis 2020-0 Uni vers Sting / ty to 2-18 ity of [place] adverse 00:00: [place] reaction 00 Medical s Branch BEE DRUG Active Anaphylaxis Unive rs STING / INGREDI -18 ity of VENOM 00:00: [place] [facility] CASEIN DRUG Active Other-Cmnt Univer s INGREDI 2- ity of 00:00: [place] [facility] Casein Propensi Active Other - See Uni vers ty to comments 2-11 ity of adverse 00:00: [place] reaction Medical s Branch Milk Propensi Active Other - See Uni vers ty to comments 01-02 ity of adverse 00:00: [place] reaction 00 Medical s to Branch drug Soy Propensi Active Unknown - Unive rs ty to See comments 01-02 ity of adverse 00:00: [place] reaction Medical s to Branch drug MILK DRUG Active Other-Cmnt Univer s INGREDI 01-02 ity of 00:00: [place] 00 Medical Branch SOY DRUG Active Unknown-Cmnt Univ ers INGREDI 01-02 ity of 00:00: [place] [facility] [place] Social History Social Habit Start Date Stop Date Quantity Comments Source ASSERTION 2019-03-20 University of 00:00:00 [facility] Gender identity Universit y of [facility] Sexual orientation Univer sity of [facility] Alcohol intake 2023-04-03 2023-04-03 Ex-drinker University of 00:00:00 00:00:00 (finding) [facility] History of Social 2022-11-14 2022-11-14 Univers ity of function 00:00:00 00:00:00 [facility] Exposure to 2022-10-31 2022-11-10 Not sure [facility] SARS-CoV-2 (event) 00:00:00 12:18:00 [facility] Tobacco use and 2022-11-10 2022-11-10 Smokeless Universit y of exposure 00:00:00 00:00:00 tobacco non-user [facility] Education 2019-11-22 2019-11-22 11 University of 00:00:00 00:00:00 [facility] Tobacco Comment 2013-06-10 2013-06-10 mom smokes Universit y of 00:00:00 00:00:00 outside [facility] Sex Assigned At [birth year] Universit y of 00:00:00 00:00:00 [facility] Smoking Status Start Date Stop Date Source Never smoked tobacco [facility] Medications Ordered Filled Start Stop Current Ordering Indication Dosage Frequency Signature Comments Components Source Medication Medication Date Date Medication? Clinician (SIG) Name Name doxycycline No [id number] 100mg Take 1 Univers monohydrate 4-01 14-14 capsule by i ty of 100 mg 00:00: 04:59 mouth in [place] capsule 00 :00 the Medical morning Branch and 1 capsule in the evening. Do all this for 7 days. doxycycline No [id number] 100mg Take 1 Univers monohydrate 4-14 capsule by i ty of 100 mg 00:00: 04:59 mouth in [place] capsule 00 :00 the Medical morning Branch and 1 capsule in the evening. Do all this for 7 days. doxycycline No [id number] 100mg Take 1 Univers monohydrate 4-14 capsule by i ty of 100 mg 00:00: 04:59 mouth in [place] capsule 00 :00 the Medical morning [place] and 1 capsule in the evening. Do all this for 7 days. doxycycline No [id number] 100mg Take 1 Univers monohydrate 4-14 capsule by i ty of 100 mg 00:00: 04:59 mouth in [place] capsule 00 :00 the Medical morning [place] and 1 capsule in the evening. Do all this for 7 days. levonorgest 2022- No [id number] 1{devi Univers reL 11-1505 e} ity of (MIRENA) 21:45: 20:46 [place] IUD 1 00 :00 [employer] [place] levonorgest 2022- No [id number] 1{devi 1 Device, Univers reL 11-1505 e} Intrauteri ity of (MIRENA) 21:45: 20:46 ne, ONCE, [place] IUD 1 00 :00 1 dose, On [employer] Top Wed 11/15/22 Branch at 1645, Routine levonorgest 2022- No [id number] 1{devi Univers reL 11-1505 e} ity of (MIRENA) 21:45: 20:46 [place] IUD 1 00 :00 [employer] [place] levonorgest 2022- No [id number] 1{devic 1 Device, Univers reL 4-05 04-05 e} Intrauteri ity of (MIRENA) 21:45: 20:46 ne, ONCE, [place] IUD 1 00 :00 1 dose, On [employer] Top Wed 11/15/22 Branch at 1645, Routine miSOPROStoL Yes [id number] Take 1 Univers 200 mcg 4-04 tablet, by ity of tablet 00:00: mouth, at [address] Medical the night Branch before IUD insertion procedure. Repeat dose at 0700 am on the morning of IUD insertion for cervical softening; not for abortive purposes. miSOPROStoL Yes [id number] Take 1 Univers 200 mcg 4-04 tablet, by ity of tablet 00:00: mouth, [facility] [place] [address] [facility] before IUD insertion procedure. Repeat dose at 0700 am on the morning of IUD insertion for cervical softening; not for abortive purposes. miSOPROStoL 2022- No [id number] Take 1 Univers 200 mcg 4-04 04-05 tablet, by ity o f tablet 00:00: 00:00 mouth, at [place] 00 :00 bedtime [facility] the night Branch before IUD insertion procedure. Repeat dose at 0700 am on the morning of IUD insertion for cervical softening; not for abortive purposes. miSOPROStoL 2022- No [id number] Take 1 Univers 200 mcg 4-04 04-05 tablet, by ity o f tablet 00:00: 00:00 mouth, at [place] 00 :00 bedtime [facility] the night Branch before IUD insertion procedure. Repeat dose at 0700 am on the morning of IUD insertion for cervical softening; not for abortive purposes. etonogestre 2019- No [id number] 68mg Univers l 5-27 05-27 ity of (NEXPLANON) 16:00: 14:55 [place] implant 68 00 :00 Medical mg Branch etonogestre 2019- No [id number] 68mg 68 mg, Univers l 5-27 05-27 Subdermal, ity of (NEXPLANON) 16:00: 14:55 ONCE NOW, [place] implant 68 00 :00 1 dose, Medica l mg Wed Branch 01/07/20 at 1100, Routine
Use approved by: [employer] etonogestre 2019- No [id number] 68mg Univers l 01-06 ity of (NEXPLANON) 16:00: 14:55 [place] implant 68 00 :00 Medical mg Branch etonogestre 2019- No [id number] 68mg 68 mg, Univers l 01-06 Subdermal, ity of (NEXPLANON) 16:00: 14:55 ONCE NOW, [place] implant 68 00 :00 1 dose, Medica l mg [facility] 01/07/20 at 1100, Routine
Use approved by: [employer] lisdexamfet 2019- No 50mg Take 50 mg Univers amine 11-22 by mouth ity of (VYVANSE) 12:42: 00:00 every [place] 50 mg 10 :00 morning. Medical capsule [place] ARIPiprazol 2019- No 2mg Take 2 mg Univers e (ABILIFY) 11-2212 by mouth ity of 2 mg tablet 12:42: 00:00 daily. [place] 10 :00 Medical [place] human Yes .5mL 0.5 mL, Univers papillomav 11-22 Intramuscu ity of vac,9-migel(P 12:26: lar, [place] F) 12 ONCE-PRIOR Medical (GARDASIL-9 TO [place] ) syringe DISCHARGE, 0.5 mL 1 dose, Starting 11/23/19 at 0726, Until Discontinu ed, Routine, Give vaccine prior to discharge varicella 2019- No .5mL 0.5 mL, Univ ers virus 11-2213 Subcutaneo ity of vaccine 12:26: 16:35 us, [place] live 12 :00 ONCE-PRIOR Medical (VARIVAX TO [place] (PF)) DISCHARGE, injection 1 dose, 0.5 mL [...] 27 Starting Medica l 400 mg/5 mL [facility] Branch suspension 11/22/19 at 30 mL 2256, Until Discontinu ed, Routine, Constipati on naloxone 2019-0 2020- No .4mg 0.4 mg, Unive rs (NARCAN) 412 04-14 Slow IV ity of injection 00:13: 00:12 [place], PRN [place] 0.4 mg 34 :34 - SEE Medical INSTRUCTIO Branch NS, Starting 11/22/19 at 1913, Until 11/24/19 at 1912, Routine, Analgesia Recovery 2019-0 Yes [id number] 1{tbl} Take 1 Univers vitamin 4-12 tablet by ity of w/FA tablet 00:00: mouth [place] 00 daily. Medical Branch docusate 2020-0 Yes [id number] 240mg Take 1 U nivers calcium 240 4-12 capsule by it y of mg capsule 00:00: mouth once [place] 00 daily as Medical needed for Branch Constipati on. ferrous 2020-0 Yes [id number] 325mg Take 1 Un dustin sulfate 325 4-12 tablet by ity of mg (65 mg 00:00: mouth 2 [place] iron) 00 (two) Medical tablet times Branch daily. ibuprofen 2020-0 Yes [id number] 600mg Take 1 Univers 600 mg 4-12 tablet by ity of tablet 00:00: mouth [place] 00 every 6 Medical (six) Branch hours as needed (Pain). Take with food or milk. 2020-0 Yes [id number] 1{tbl} Take 1 Univers vitamin 4-12 tablet by ity of w/FA tablet 00:00: mouth [place] 00 daily. Medical Branch docusate 2020-0 Yes [id number] 240mg Take 1 U nivers calcium 240 4-12 capsule by it y of mg capsule 00:00: mouth once [place] 00 daily as Medical needed for Branch Constipati on. ferrous 2020-0 Yes [id number] 325mg Take 1 Un dustin sulfate 325 4-12 tablet by ity of mg (65 mg 00:00: mouth 2 [place] iron) 00 (two) Medical tablet times Branch daily. ibuprofen 2020-0 Yes [id number] 600mg Take 1 Univers 600 mg 4-12 tablet by ity of tablet 00:00: mouth [place] 00 every 6 Medical (six) Branch hours as needed (Pain). Take with food or milk. 2020-0 Yes [id number] 1{tbl} Take 1 Univers vitamin 4-12 tablet by ity of w/FA tablet 00:00: mouth [place] 00 daily. Medical Branch docusate 2020-0 Yes [id number] 240mg Take 1 U nivers calcium 240 4-12 capsule by it y of mg capsule 00:00: mouth once [place] 00 daily as Medical needed for Branch Constipati on. ferrous 2020-0 Yes [id number] 325mg Take 1 Un dustin sulfate 325 4-12 tablet by ity of mg (65 mg 00:00: mouth 2 [place] iron) 00 (two) Medical tablet times Branch daily. ibuprofen 2020-0 Yes [id number] 600mg Take 1 Univers 600 mg 4-12 tablet by ity of tablet 00:00: mouth [place] 00 every 6 Medical (six) Branch hours as needed (Pain). Take with food or milk. 2020-0 Yes [id number] 1{tbl} Take 1 Univers vitamin 4-12 tablet by ity of w/FA tablet 00:00: mouth [place] 00 daily. Medical Branch docusate 2020-0 Yes [id number] 240mg Take 1 U nivers calcium 240 4-12 capsule by it y of mg capsule 00:00: mouth once [place] 00 daily as Medical needed for Branch Constipati on. ferrous 2020-0 Yes [id number] 325mg Take 1 Un dustin sulfate 325 4-12 tablet by ity of mg (65 mg 00:00: mouth 2 [place] iron) 00 (two) Medical tablet times Branch daily. ibuprofen 2020-0 Yes [id number] 600mg Take 1 Univers 600 mg 4-12 tablet by ity of tablet 00:00: mouth [place] 00 every 6 Medical (six) Branch hours as needed (Pain). Take with food or milk. 2020-0 Yes [id number] 1{tbl} Take 1 Univers vitamin 4-12 tablet by ity of w/FA tablet 00:00: mouth [place] 00 daily. Medical Branch docusate 2020-0 Yes [id number] 240mg Take 1 U nivers calcium 240 4-12 capsule by it y of mg capsule 00:00: mouth once [place] 00 daily as Medical needed for Branch Constipati on. ferrous 2020-0 Yes [id number] 325mg Take 1 Un dustin sulfate 325 4-12 tablet by ity of mg (65 mg 00:00: mouth 2 [place] iron) 00 (two) Medical tablet times Branch daily. ibuprofen 2020-0 Yes [id number] 600mg Take 1 Univers 600 mg 4-12 tablet by ity of tablet 00:00: mouth [place] 00 every 6 Medical (six) Branch hours as needed (Pain). Take with food or milk. 2020-0 Yes [id number] 1{tbl} Take 1 Univers vitamin 4-12 tablet by ity of w/FA tablet 00:00: mouth [place] 00 daily. Medical Branch docusate 2020-0 Yes [id number] 240mg Take 1 U nivers calcium 240 4-12 capsule by it y of mg capsule 00:00: mouth once [place] 00 daily as Medical needed for Branch Constipati on. ferrous 2020-0 Yes [id number] 325mg Take 1 Un dustin sulfate 325 4-12 tablet by ity of mg (65 mg 00:00: mouth 2 [place] iron) 00 (two) Medical tablet times Branch daily. ibuprofen 2020-0 Yes [id number] 600mg Take 1 Univers 600 mg 4-12 tablet by ity of tablet 00:00: mouth [place] 00 every 6 Medical (six) Branch hours as needed (Pain). Take with food or milk. 2020-0 Yes [id number] 1{tbl} Take 1 Univers vitamin 4-12 tablet by ity of w/FA tablet 00:00: mouth [place] 00 daily. Medical Branch docusate 2020-0 Yes [id number] 240mg Take 1 U nivers calcium 240 4-12 capsule by it y of mg capsule 00:00: mouth once [place] 00 daily as Medical needed for Branch Constipati on. ferrous 2020-0 Yes [id number] 325mg Take 1 Un dustin sulfate 325 4-12 tablet by ity of mg (65 mg 00:00: mouth 2 [place] iron) 00 (two) Medical tablet times Branch daily. ibuprofen 2020-0 Yes [id number] 600mg Take 1 Univers 600 mg 4-12 tablet by ity of tablet 00:00: mouth [place] 00 every 6 Medical (six) Branch hours as needed (Pain). Take with food or milk. 2020-0 Yes [id number] 1{tbl} Take 1 Univers vitamin 4-12 tablet by ity of w/FA tablet 00:00: mouth [place] 00 daily. Medical Branch docusate 2020-0 Yes [id number] 240mg Take 1 U nivers calcium 240 4-12 capsule by it y of mg capsule 00:00: mouth once [place] 00 daily as Medical needed for Branch Constipati on. ferrous 2020-0 Yes [id number] 325mg Take 1 Un dustin sulfate 325 4-12 tablet by ity of mg (65 mg 00:00: mouth 2 [place] iron) 00 (two) Medical tablet times Branch daily. ibuprofen 2020-0 Yes [id number] 600mg Take 1 Univers 600 mg 4-12 tablet by ity of tablet 00:00: mouth [place] 00 every 6 Medical (six) Branch hours as needed (Pain). Take with food or milk. 2020-0 Yes [id number] 1{tbl} Take 1 Univers vitamin 4-12 tablet by ity of w/FA tablet 00:00: mouth [place] 00 daily. Medical Branch docusate 2020-0 Yes [id number] 240mg Take 1 U nivers calcium 240 4-12 capsule by it y of mg capsule 00:00: mouth once [place] 00 daily as Medical needed for Branch Constipati on. ferrous 2020-0 Yes [id number] 325mg Take 1 Un dustin sulfate 325 4-12 tablet by ity of mg (65 mg 00:00: mouth 2 [place] iron) 00 (two) Medical tablet times Branch daily. ibuprofen 2020-0 Yes [id number] 600mg Take 1 Univers 600 mg 4-12 tablet by ity of tablet 00:00: mouth [place] 00 every 6 Medical (six) Branch hours as needed (Pain). Take with food or milk. 2020-0 Yes [id number] 1{tbl} Take 1 Univers vitamin 4-12 tablet by ity of w/FA tablet 00:00: mouth [place] 00 daily. Medical Branch docusate 2020-0 Yes [id number] 240mg Take 1 U nivers calcium 240 4-12 capsule by it y of mg capsule 00:00: mouth once [place] 00 daily as Medical needed for Branch Constipati on. ferrous 2020-0 Yes [id number] 325mg Take 1 Un dustin sulfate 325 4-12 tablet by ity of mg (65 mg 00:00: mouth 2 [place] iron) 00 (two) Medical tablet times Branch daily. ibuprofen 2020-0 Yes [id number] 600mg Take 1 Univers 600 mg 4-12 tablet by ity of tablet 00:00: mouth [place] 00 every 6 Medical (six) Branch hours as needed (Pain). Take with food or milk. 2020-0 Yes [id number] 1{tbl} Take 1 Univers vitamin 4-12 tablet by ity of w/FA tablet 00:00: mouth [place] 00 daily. Medical Branch docusate 2020-0 Yes [id number] 240mg Take 1 U nivers calcium 240 4-12 capsule by it y of mg capsule 00:00: mouth once [place] 00 daily as Medical needed for Branch Constipati on. ferrous 2020-0 Yes [id number] 325mg Take 1 Un dustin sulfate 325 4-12 tablet by ity of mg (65 mg 00:00: mouth 2 [place] iron) 00 (two) Medical tablet times Branch daily. ibuprofen 2020-0 Yes [id number] 600mg Take 1 Univers 600 mg 4-12 tablet by ity of tablet 00:00: mouth [place] 00 every 6 Medical (six) Branch hours as needed (Pain). Take with food or milk. 2020-0 Yes [id number] 1{tbl} Take 1 Univers vitamin 4-12 tablet by ity of w/FA tablet 00:00: mouth [place] 00 daily. Medical Branch docusate 2020-0 Yes [id number] 240mg Take 1 U nivers calcium 240 4-12 capsule by it y of mg capsule 00:00: mouth once [place] 00 daily as Medical needed for Branch Constipati on. ferrous 2020-0 Yes [id number] 325mg Take 1 Un dustin sulfate 325 4-12 tablet by ity of mg (65 mg 00:00: mouth 2 [place] iron) 00 (two) Medical tablet times Branch daily. ibuprofen 2020-0 Yes [id number] 600mg Take 1 Univers 600 mg 4-12 tablet by ity of tablet 00:00: mouth [place] 00 every 6 Medical (six) Branch hours as needed (Pain). Take with food or milk. 2020-0 Yes [id number] 1{tbl} Take 1 Univers vitamin 4-12 tablet by ity of w/FA tablet 00:00: mouth [place] 00 daily. Medical Branch docusate 2020-0 Yes [id number] 240mg Take 1 U nivers calcium 240 4-12 capsule by it y of mg capsule 00:00: mouth once [place] 00 daily as Medical needed for Branch Constipati on. ferrous 2020-0 Yes [id number] 325mg Take 1 Un dustin sulfate 325 4-12 tablet by ity of mg (65 mg 00:00: mouth 2 [place] iron) 00 (two) Medical tablet times Branch daily. ibuprofen 2020-0 Yes [id number] 600mg Take 1 Univers 600 mg 4-12 tablet by ity of tablet 00:00: mouth [place] 00 every 6 Medical (six) Branch hours as needed (Pain). Take with food or milk. 2020-0 Yes [id number] 1{tbl} Take 1 Univers vitamin 4-12 tablet by ity of w/FA tablet 00:00: mouth [place] 00 daily. Medical Branch docusate 2020-0 Yes [id number] 240mg Take 1 U nivers calcium 240 4-12 capsule by it y of mg capsule 00:00: mouth once [place] 00 daily as Medical needed for Branch Constipati on. ferrous 2020-0 Yes [id number] 325mg Take 1 Un dustin sulfate 325 4-12 tablet by ity of mg (65 mg 00:00: mouth 2 [place] iron) 00 (two) Medical tablet times Branch daily. ibuprofen 2020-0 Yes [id number] 600mg Take 1 Univers 600 mg 4-12 tablet by ity of tablet 00:00: mouth [place] 00 every 6 Medical (six) Branch hours as needed (Pain). Take with food or milk. 2020-0 Yes [id number] 1{tbl} Take 1 Univers vitamin 4-12 tablet by ity of w/FA tablet 00:00: mouth [place] 00 daily. Medical Branch docusate 2020-0 Yes [id number] 240mg Take 1 U nivers calcium 240 4-12 capsule by it y of mg capsule 00:00: mouth once [place] 00 daily as Medical needed for Branch Constipati on. ferrous 2020-0 Yes [id number] 325mg Take 1 Un dustin sulfate 325 4-12 tablet by ity of mg (65 mg 00:00: mouth 2 [place] iron) 00 (two) Medical tablet times Branch daily. ibuprofen 2020-0 Yes [id number] 600mg Take 1 Univers 600 mg 4-12 tablet by ity of tablet 00:00: mouth [place] 00 every 6 Medical (six) Branch hours as needed (Pain). Take with food or milk. 2020-0 Yes [id number] 1{tbl} Take 1 Univers vitamin 4-12 tablet by ity of w/FA tablet 00:00: mouth [place] 00 daily. Medical Branch docusate 2020-0 Yes [id number] 240mg Take 1 U nivers calcium 240 4-12 capsule by it y of mg capsule 00:00: mouth once [place] 00 daily as Medical needed for Branch Constipati on. ferrous 2020-0 Yes [id number] 325mg Take 1 Un dustin sulfate 325 4-12 tablet by ity of mg (65 mg 00:00: mouth 2 [place] iron) 00 (two) Medical tablet times Branch daily. ibuprofen 2020-0 Yes [id number] 600mg Take 1 Univers 600 mg 4-12 tablet by ity of tablet 00:00: mouth [place] 00 every 6 Medical (six) Branch hours as needed (Pain). Take with food or milk. 2020-0 Yes [id number] 1{tbl} Take 1 Univers vitamin 4-12 tablet by ity of w/FA tablet 00:00: mouth [place] 00 daily. Medical Branch docusate 2020-0 Yes [id number] 240mg Take 1 U nivers calcium 240 4-12 capsule by it y of mg capsule 00:00: mouth once [place] 00 daily as Medical needed for Branch Constipati on. ferrous 2020-0 Yes [id number] 325mg Take 1 Un dustin sulfate 325 4-12 tablet by ity of mg (65 mg 00:00: mouth 2 [place] iron) 00 (two) Medical tablet times Branch daily. ibuprofen 2020-0 Yes [id number] 600mg Take 1 Univers 600 mg 4-12 tablet by ity of tablet 00:00: mouth [place] 00 every 6 Medical (six) Branch hours as needed (Pain). Take with food or milk. 2020-0 Yes [id number] 1{tbl} Take 1 Univers vitamin 4-12 tablet by ity of w/FA tablet 00:00: mouth [place] 00 daily. Medical Branch docusate 2020-0 Yes [id number] 240mg Take 1 U nivers calcium 240 4-12 capsule by it y of mg capsule 00:00: mouth once [place] 00 daily as Medical needed for Branch Constipati on. ferrous 2020-0 Yes [id number] 325mg Take 1 Un dustin sulfate 325 4-12 tablet by ity of mg (65 mg 00:00: mouth 2 [place] iron) 00 (two) Medical tablet times Branch daily. ibuprofen 2020-0 Yes [id number] 600mg Take 1 Univers 600 mg 4-12 tablet by ity of tablet 00:00: mouth [place] 00 every 6 Medical (six) Branch hours as needed (Pain). Take with food or milk. 2020-0 Yes [id number] 1{tbl} Take 1 Univers vitamin 4-12 tablet by ity of w/FA tablet 00:00: mouth [place] 00 daily. Medical Branch docusate 2020-0 Yes [id number] 240mg Take 1 U nivers calcium 240 4-12 capsule by it y of mg capsule 00:00: mouth once [place] 00 daily as Medical needed for Branch Constipati on. ferrous 2020-0 Yes [id number] 325mg Take 1 Un dustin sulfate 325 4-12 tablet by ity of mg (65 mg 00:00: mouth 2 [place] iron) 00 (two) Medical tablet times Branch daily. ibuprofen 2020-0 Yes [id number] 600mg Take 1 Univers 600 mg 4-12 tablet by ity of tablet 00:00: mouth [place] 00 every 6 Medical (six) Branch hours as needed (Pain). Take with food or milk. 2020-0 Yes [id number] 1{tbl} Take 1 Univers vitamin 4-12 tablet by ity of w/FA tablet 00:00: mouth [place] 00 daily. Medical Branch docusate 2020-0 Yes [id number] 240mg Take 1 U nivers calcium 240 4-12 capsule by it y of mg capsule 00:00: mouth once [place] 00 daily as Medical needed for Branch Constipati on. ferrous 2020-0 Yes [id number] 325mg Take 1 Un dustin sulfate 325 4-12 tablet by ity of mg (65 mg 00:00: mouth 2 [place] iron) 00 (two) Medical tablet times Branch daily. ibuprofen 2020-0 Yes [id number] 600mg Take 1 Univers 600 mg 4-12 tablet by ity of tablet 00:00: mouth [place] 00 every 6 Medical (six) Branch hours as needed (Pain). Take with food or milk. 2019-0 Yes [id number] 1{tbl} Take 1 Univers vitamin 4-12 tablet by ity of w/FA tablet 00:00: mouth [place] 00 daily. Medical Branch docusate 2020-0 Yes [id number] 240mg Take 1 U nivers calcium 240 4-12 capsule by it y of mg capsule 00:00: mouth [place] 00 daily as Medical needed for Branch Constipati on. ferrous 2020-0 Yes [id number] 325mg Take 1 Un dustin sulfate 325 4-12 tablet by ity of mg (65 mg 00:00: mouth 2 [place] iron) 00 (two) Medical tablet times Branch daily. ibuprofen 2020-0 Yes [id number] 600mg Take 1 Univers 600 mg 4-12 tablet by ity of tablet 00:00: mouth [place] 00 every 6 Medical (six) Branch hours as needed (Pain). Take with food or milk. HYDROcodone 0 2019- No [id number] 1{tbl} Take 1 Univers -acetaminop 4-12 04-20 tablet by it y of hen 5-325 00:00: 04:59 mouth [place] mg tablet 00 :00 every 6 Medical (six) Branch hours as needed (for pain) for up to 7 days. Do not exceed 3 grams of acetaminop hen in 24 hours. HYDROcodone 2019- No [id number] 1{tbl} Take 1 Univers -acetaminop 11-22 tablet by it y of hen 5-325 [...] Surgical Prophylaxi s
Surgi ashley Prophylaxi s: [employer]
Duration of therapy: within 24 hours of surgery lactated 2020-0 2020- No 500mL at 999 Unive rs ringers IV 11-21- mL/hr, 500 it y of infusion 20:00: 20:40 mL, IV [place] 500 mL 00 :00 Infusion, Medical ONCE, 1 Branch dose, 11/22/19 at 1500, Routine [id number] IV 2019-0 2020- No 1000mL at 125 Uni vers infusion 11-21- mL/hr, IV ity o f 1,000 mL [...] [place] (RIGHT STEP 00 daily. Medica l [facility] Branch VITAMINS) 27 mg iron- 0.8 mg [...] [place] (RIGHT STEP 00 daily. [facility]ica l [facility] Branch VITAMINS) 27 mg iron- 0.8 mg [...] 00:00: mouth [place] (RIGHT STEP 00 daily. [facility] VITAMINS) 27 mg iron- 0.8 mg per tablet ferrous 2019-0 Yes 325mg Take 1 Univers sulfate 325 3-02 tablet by ity of mg (65 mg 00:00: mouth [place] iron) 00 daily. Medical tablet Branch Yes 1{tbl} Take 1 Unive rs Vit-Iron 3-02 tablet by ity of Fumarate-FA 00:00: mouth [place] (RIGHT STEP 00 daily. [facility] VITAMINS) 27 mg iron- 0.8 mg per tablet ferrous 2019- Yes 325mg Take 1 Univers sulfate 325 3-02 tablet by ity of mg (65 mg 00:00: mouth [place] iron) 00 daily. Medical tablet Branch 2020- No 1{tbl} Take 1 Univ ers Vit-Iron 3-02 04-12 tablet by ity o f Fumarate-FA 00:00: 00:00 [place] ([place] ST[place] 00 :00 daily. [facility] VITAMINS) 27 mg iron- 0.8 mg [...] Therapy: Other (see Comments) azithromyci 2019- No [id number] 1000mg Take 2 Univers n 500 mg 2-19 02-20 tablets by ity of tablet 00:00: 05:59 mouth [place] 00 :[place] now for 1 Medical dose. Branch azithromyci 2020-0 2020- No [id number] 1000mg Take 2 Univers n 500 mg 2-19 02-20 tablets by ity of tablet 00:00: 05:59 [facility] now for 1 Medical dose. Branch ARIPiprazol 2019-0 Yes 2mg Take 2 mg U nivers e (ABILIFY) 2-18 by mouth ity of 2 mg tablet 19:58: daily. [place] [address] Medical Branch lisdexamfet 2019-0 Yes 50mg Take 50 mg Univers amine 2-18 by mouth ity of (VYVANSE) 19:58: every [place] 50 mg 26 morning. Medical capsule Branch ARIPiprazol 2019-0 Yes 2mg Take 2 mg U nivers e (ABILIFY) 2-18 by mouth ity of 2 mg tablet 19:58: daily. [place] [address] Medical Branch lisdexamfet 2019-0 Yes 50mg Take 50 mg Univers amine 2-18 by mouth ity of (VYVANSE) 19:58: every [place] 50 mg 26 morning. Medical capsule Branch ARIPiprazol 2019-0 Yes 2mg Take 2 mg U nivers e (ABILIFY) 2-18 by mouth ity of 2 mg tablet 19:58: daily. [address] Branch lisdexamfet 2019-0 Yes 50mg Take 50 mg Univers amine 2-18 by mouth ity of (VYVANSE) 19:58: every [place] 50 mg 26 morning. Medical capsule Branch ARIPiprazol 2019-0 Yes 2mg Take 2 mg U nivers e (ABILIFY) 2-18 by mouth ity of 2 mg tablet 19:58: daily. [place] [address] Medical Branch lisdexamfet 2019-0 Yes 50mg Take 50 mg Univers amine 2-18 by mouth ity of (VYVANSE) 19:58: every [place] 50 mg 26 morning. Medical capsule Branch ARIPiprazol 2019-0 Yes 2mg Take 2 mg U nivers e (ABILIFY) 2-18 by mouth ity of 2 mg tablet 19:58: daily. [place] [address] Medical Branch lisdexamfet 2020-0 Yes 50mg Take 50 mg Univers amine 2-18 by mouth ity of (VYVANSE) 19:58: every [place] 50 mg 26 morning. Medical capsule Branch ARIPiprazol 2020-0 Yes 2mg Take 2 mg U nivers e (ABILIFY) 2-18 by mouth ity of 2 mg tablet 19:58: daily. [place] [address] Medical Branch lisdexamfet 2020-0 Yes 50mg Take 50 mg Univers amine 2-18 by mouth ity of (VYVANSE) 19:58: every [place] 50 mg 26 morning. Medical capsule Branch ARIPiprazol 2020-0 Yes 2mg Take 2 mg U nivers e (ABILIFY) 2-18 by mouth ity of 2 mg tablet 19:58: daily. [place] [address] Medical Branch lisdexamfet 2020-0 Yes 50mg Take 50 mg Univers amine 2-18 by mouth ity of (VYVANSE) 19:58: every [place] 50 mg 26 morning. Medical capsule Branch ARIPiprazol 2020-0 Yes 2mg Take 2 mg U nivers e (ABILIFY) 2-18 by mouth ity of 2 mg tablet 19:58: daily. [place] [address] Medical Branch lisdexamfet 2020-0 Yes 50mg Take 50 mg Univers amine 2-18 by mouth ity of (VYVANSE) 19:58: every [place] 50 mg 26 morning. Medical capsule Branch ARIPiprazol 2020-0 Yes 2mg Take 2 mg U nivers e (ABILIFY) 2-18 by mouth ity of 2 mg tablet 19:58: daily. [place] [address] Medical Branch lisdexamfet 2020-0 Yes 50mg Take 50 mg Univers amine 2-18 by mouth ity of (VYVANSE) 19:58: every [place] 50 mg 26 morning. Medical capsule Branch ARIPiprazol 2020-0 Yes 2mg Take 2 mg U nivers e (ABILIFY) 2-18 by mouth ity of 2 mg tablet 19:58: daily. [address] Branch lisdexamfet 2020-0 Yes 50mg Take 50 mg Univers amine 2-18 by mouth ity of (VYVANSE) 19:58: every [place] 50 mg 26 morning. Medical capsule Branch ARIPiprazol 2020-0 Yes 2mg Take 2 mg U nivers e (ABILIFY) 2-18 by mouth ity of 2 mg tablet 19:58: daily. [place] [address] Medical Branch lisdexamfet 2020-0 Yes 50mg Take 50 mg Univers amine 2-18 by mouth ity of (VYVANSE) 19:58: every [place] 50 mg 26 morning. Medical capsule Branch ARIPiprazol 2020-0 Yes 2mg Take 2 mg U nivers e (ABILIFY) 2-18 by mouth ity of 2 mg tablet 19:58: daily. [place] [address] Medical Branch lisdexamfet 2020-0 Yes 50mg Take 50 mg Univers amine 2-18 by mouth ity of (VYVANSE) 19:58: every [place] 50 mg 26 morning. Medical capsule Branch ARIPiprazol 2020-0 Yes 2mg Take 2 mg U nivers e (ABILIFY) 2-18 by mouth ity of 2 mg tablet 19:58: daily. [address] Branch lisdexamfet 2020-0 Yes 50mg Take 50 mg Univers amine 2-18 by mouth ity of (VYVANSE) 19:58: every [place] 50 mg 26 morning. Medical capsule Branch ARIPiprazol 2020-0 Yes 2mg Take 2 mg U nivers e (ABILIFY) 2-18 by mouth ity of 2 mg tablet 19:58: daily. [address] Branch lisdexamfet 2020-0 Yes 50mg Take 50 mg Univers amine 2-18 by mouth ity of (VYVANSE) 19:58: every [place] 50 mg 26 morning. Medical capsule Branch ARIPiprazol 2020-0 Yes 2mg Take 2 mg U nivers e (ABILIFY) 2-18 by mouth ity of 2 mg tablet 19:58: daily. [address] Branch lisdexamfet 2020-0 Yes 50mg Take [...] ity of 2 mg tablet 19:58: daily. [address] Branch lisdexamfet 2019-0 Yes 50mg Take 50 mg Univers amine 2-18 by mouth ity of (VYVANSE) 19:58: every [place] 50 mg 26 morning. Medical capsule Branch ARIPiprazol 2019-0 Yes 2mg Take 2 mg U nivers e (ABILIFY) 2-18 by mouth ity of 2 mg tablet 19:58: daily. [address] Branch lisdexamfet 0 Yes 50mg Take 50 mg Univers amine 2-18 by mouth ity of (VYVANSE) 19:58: every [place] 50 mg 26 morning. Medical capsule Branch ARIPiprazol 2019-0 Yes 2mg Take 2 mg U nivers e (ABILIFY) 2-18 by mouth ity of 2 mg tablet 19:58: daily. [address] Branch lisdexamfet 0 Yes 50mg Take 50 mg Univers amine 2-18 by mouth ity of (VYVANSE) 19:58: every [place] 50 mg 26 morning. Medical capsule Branch ARIPiprazol 2019-0 Yes 2mg Take 2 mg U nivers e (ABILIFY) 2-18 by mouth ity of 2 mg tablet 19:58: daily. [address] Branch lisdexamfet 0 Yes 50mg Take 50 mg Univers amine 2-18 by mouth ity of (VYVANSE) 19:58: every [place] 50 mg 26 morning. Medical capsule Branch lisdexamfet Yes 50mg Take 50 mg Univers amine 5-05 by mouth ity of (VYVANSE) 14:18: every [place] 50 mg 37 morning. Medical capsule Branch ARIPiprazol Yes 2mg Take 2 mg U nivers e (ABILIFY) 5-05 by mouth ity of 2 mg tablet 14:18: daily. [address] Branch Somatropin Yes [id number] 3mg inject 3 Univers (NORDITROPI 5-05 mg under ity of N FLEXPRO) 00:00: the [place] 15 mg/1.5 00 daily. Medical mL (10 Branch mg/mL) PnIj Somatropin Yes [id number] 3mg inject 3 Univers (NORDITROPI 5-05 mg under ity of N FLEXPRO) 00:00: the [place] 15 mg/1.5 00 daily. Medical mL (10 Branch mg/mL) PnIj Somatropin Yes [id number] 3mg inject 3 Univers (NORDITROPI 5-05 mg under ity of N FLEXPRO) 00:00: the [place] 15 mg/1.5 00 daily. Medical mL (10 Branch mg/mL) PnIj Somatropin Yes [id number] 3mg inject 3 Univers (NORDITROPI 5-05 mg under ity of N FLEXPRO) 00:00: the [place] 15 mg/1.5 00 daily. Medical mL (10 Branch mg/mL) PnIj Somatropin Yes [id number] 3mg inject 3 Univers (NORDITROPI 5-05 mg under ity of N FLEXPRO) 00:00: the [place] 15 mg/1.5 00 daily. Medical mL (10 Branch mg/mL) PnIj Somatropin Yes [id number] 3mg inject 3 Univers (NORDITROPI 5-05 mg under ity of N FLEXPRO) 00:00: the [place] 15 mg/1.5 00 daily. Medical mL (10 Branch mg/mL) PnIj Somatropin Yes [id number] 3mg inject 3 Univers (NORDITROPI 5-05 mg under ity of N FLEXPRO) 00:00: the [place] 15 mg/1.5 00 daily. Medical mL (10 Branch mg/mL) PnIj Somatropin Yes [id number] 3mg inject 3 Univers (NORDITROPI 5-05 mg under ity of N FLEXPRO) 00:00: the [place] 15 mg/1.5 00 daily. Medical mL (10 Branch mg/mL) PnIj Somatropin Yes [id number] 3mg inject 3 Univers (NORDITROPI 5-05 mg under ity of N FLEXPRO) 00:00: the [place] 15 mg/1.5 00 daily. Medical mL (10 Branch mg/mL) PnIj Somatropin 2015-0 Yes [id number] 3mg inject 3 Univers (NORDITROPI 5-05 mg under ity of N FLEXPRO) 00:00: the [place] 15 mg/1.5 00 daily. Medical mL (10 Branch mg/mL) PnIj Somatropin 2014-0 Yes [id number] 3mg inject 3 Univers (NORDITROPI 5-05 mg under ity of N FLEXPRO) 00:00: the [place] 15 mg/1.5 00 daily. Medical mL (10 Branch mg/mL) PnIj Somatropin 2014-0 Yes [id number] 3mg inject 3 Univers (NORDITROPI 5-05 mg under ity of N FLEXPRO) 00:00: the [place] 15 mg/1.5 00 daily. Medical mL (10 Branch mg/mL) PnIj Somatropin 2014-0 Yes [id number] 3mg inject 3 Univers (NORDITROPI 5-05 mg under ity of N FLEXPRO) 00:00: the [place] 15 mg/1.5 00 daily. Medical mL (10 Branch mg/mL) PnIj Somatropin 2014-0 Yes [id number] 3mg inject 3 Univers (NORDITROPI 5-05 mg under ity of N FLEXPRO) 00:00: the [place] 15 mg/1.5 00 daily. Medical mL (10 Branch mg/mL) PnIj Somatropin 2015-0 Yes [id number] 3mg inject 3 Univers (NORDITROPI 5-05 mg under ity of N FLEXPRO) 00:00: the [place] 15 mg/1.5 00 daily. Medical mL (10 Branch mg/mL) PnIj Somatropin 2015-0 Yes [id number] 3mg inject 3 Univers (NORDITROPI 5-05 mg under ity of N FLEXPRO) 00:00: the [place] 15 mg/1.5 00 daily. Medical mL (10 Branch mg/mL) PnIj Somatropin 2015-0 Yes [id number] 3mg inject 3 Univers (NORDITROPI 5-05 mg under ity of N FLEXPRO) 00:00: the [place] 15 mg/1.5 00 daily. Medical mL (10 Branch mg/mL) PnIj Somatropin 2015-0 Yes [id number] 3mg inject 3 Univers (NORDITROPI 5-05 mg under ity of N FLEXPRO) 00:00: the [place] 15 mg/1.5 00 daily. Medical mL (10 Branch mg/mL) PnIj Somatropin Yes [id number] 3mg inject 3 Univers (NORDITROPI 5-05 mg under ity of N FLEXPRO) 00:00: the [place] 15 mg/1.5 00 daily. Medical mL (10 Branch mg/mL) PnIj Somatropin Yes [id number] 3mg inject 3 Univers (NORDITROPI 5-05 mg under ity of N FLEXPRO) 00:00: the [place] 15 mg/1.5 00 daily. Medical mL (10 Branch mg/mL) PnIj Somatropin Yes [id number] 3mg inject 3 Univers (NORDITROPI 5-05 mg under ity of N FLEXPRO) 00:00: the [place] 15 mg/1.5 00 daily. Medical mL (10 Branch mg/mL) PnIj Somatropin 2020- No [id number] 3mg inject 3 Univers (NORDITROPI 5-05 04-12 [...] Immunizations Ordered Filled Immunization Date Status Comments [facility] e Immunization Name Name Varicella 2019-11-24 Completed [...] .5 mL 00:00:00 [facility] 6+ MO [place] Tdap 2019-09-30 Completed University of 00:00:00 [facility] Influenza Virus 2019-09-30 Completed Universit y of Vaccine [place] .5 mL 00:00:00 [facility] IM 6+ MO Branch Tdap 2019-09-30 Completed University of 00:00:00 [facility] Influenza Virus 2019-09-30 Completed Universit y of Vaccine [place] .5 mL 00:00:00 [facility] IM 6+ MO Branch Tdap 2019-09-30 Completed University of 00:00:00 [facility] Influenza Virus 2019-09-30 Completed Universit y of Vaccine [place] .5 mL 00:00:00 [facility] IM 6+ MO [place] Tdap 2019-09-30 Completed University of 00:00:00 [facility] Influenza Virus 2019-09-30 Completed Universit y of Vaccine [place] .5 mL 00:00:00 [facility] IM 6+ MO [place] Tdap 2019-09-30 Completed University of 00:00:00 [facility] Influenza Virus 2019-09-30 Completed Universit y of Vaccine [place] .5 mL 00:00:00 [place] [facility] 6+ MO Branch Tdap 2019-09-30 Completed University of 00:00:00 [facility] Influenza Virus 2019-09-30 Completed Universit y of Vaccine [place] .5 mL 00:00:00 [place] [facility] 6+ MO Branch Tdap 2019-09-30 Completed University of 00:00:00 [facility] Influenza Virus 2019-09-30 Completed Universit y of Vaccine [place] .5 mL 00:00:00 [place] [facility] 6+ MO Branch Tdap 2019-09-30 Completed University of 00:00:00 [facility] Influenza Virus 2019-09-30 Completed Universit y of Vaccine [place] .5 mL 00:00:00 [facility] 6+ MO Branch Tdap 2019-09-30 Completed University of 00:00:00 [facility] Influenza Virus 2019-09-30 Completed Universit y of Vaccine [place] .5 mL 00:00:00 [facility] 6+ MO Branch Tdap 2019-09-30 Completed University of 00:00:00 [facility] Influenza Virus 2019-09-30 Completed Universit y of Vaccine [place] .5 mL 00:00:00 [facility] 6+ MO Branch Tdap 2019-09-30 Completed University of 00:00:00 [facility] Influenza Virus 2019-09-30 Completed Universit y of Vaccine [place] .5 mL 00:00:00 [facility] 6+ MO Branch Tdap 2019-09-30 Completed University of 00:00:00 [facility] Influenza Virus 2019-09-30 Completed Universit y of Vaccine [place] .5 mL 00:00:00 [facility] 6+ MO Branch Tdap 2019-09-30 Completed University of 00:00:00 [facility] Influenza Virus 2019-09-30 Completed Universit y of Vaccine [place] .5 mL 00:00:00 [facility] 6+ MO Branch Tdap 2019-09-30 Completed University of 00:00:00 [facility] Influenza Virus 2019-09-30 Completed Universit y of Vaccine [place] .5 mL 00:00:00 [place] [facility] 6+ MO Branch Tdap 2019-09-30 Completed University of 00:00:00 [facility] Influenza Virus 2019-09-30 Completed Universit y of Vaccine [place] .5 mL 00:00:00 [facility] 6+ MO Branch Tdap 2019-09-30 Completed University of 00:00:00 [facility] Influenza Virus 2019-09-30 Completed Universit y of Vaccine [place] .5 mL 00:00:00 [place] [facility] 6+ MO Branch Tdap 2019-09-30 Completed University of 00:00:00 [facility] Influenza Virus 2019-09-30 Completed Universit y of Vaccine [place] .5 mL 00:00:00 [place] [facility] 6+ MO Branch Tdap 2019-09-30 Completed University of 00:00:00 [facility] Influenza Virus 2019-09-30 Completed Universit y of Vaccine [place] .5 mL 00:00:00 [place] [facility] 6+ MO Branch Tdap 2019-09-30 Completed University of 00:00:00 [facility] Influenza Virus 2019-09-30 Completed Universit y of Vaccine [place] .5 mL 00:00:00 [facility] 6+ MO Branch Tdap 2019-09-30 Completed University of 00:00:00 [facility] Influenza Virus 2019-09-30 Completed Universit y of Vaccine [place] .5 mL 00:00:00 [facility] 6+ MO Branch Tdap 2019-09-30 Completed University of 00:00:00 [facility] Influenza Virus 2019-09-30 Completed Universit y of Vaccine [place] .5 mL 00:00:00 [facility] 6+ MO Branch Tdap 2019-09-30 Completed University of 00:00:00 [facility] Influenza Virus 2019-09-30 Completed Universit y of Vaccine [place] .5 mL 00:00:00 [facility] 6+ MO Branch TDAP 2019-09-30 Completed University of 00:00:00 [facility] Influenza Virus 2019-09-30 Completed Universit y of Vaccine [place] .5 mL 00:00:00 [facility] 6+ MO Branch TDAP 2019-09-30 Completed University of 00:00:00 [facility] Influenza Virus 2019-09-30 Completed Universit y of Vaccine [place] .5 mL 00:00:00 [place] [facility] 6+ MO Branch TDAP 2019-09-30 Completed University of 00:00:00 [facility] Influenza Virus 2019-09-30 Completed Universit y of Vaccine [place] .5 mL 00:00:00 [place] [facility] 6+ MO Branch TDAP 2019-09-30 Completed University of 00:00:00 [facility] Influenza Virus 2019-09-30 Completed Universit y of Vaccine [place] .5 mL 00:00:00 [place] [facility] 6+ MO Branch TDAP 2019-09-30 Completed University of 00:00:00 [facility] Influenza Virus 2019-09-30 Completed Universit y of Vaccine [place] .5 mL 00:00:00 [place] [facility] 6+ MO Branch TDAP 2019-09-30 Completed University of 00:00:00 [facility] Influenza Virus 2019-09-30 Completed Universit y of Vaccine [place] .5 mL 00:00:00 [place] [facility] 6+ MO Branch Influenza Virus 2019-09-30 Completed Universit y of Vaccine [place] .5 mL 00:00:00 [facility] 6+ MO Branch TDAP 2019-09-30 Completed University of 00:00:00 [facility] Tdap 2019-09-30 Completed University of 00:00:00 [facility] Influenza Virus 2019-09-30 Completed Universit y of Vaccine [place] .5 mL 00:00:00 [facility] 6+ MO Branch TDAP 2019-09-30 Completed University of 00:00:00 [facility] Influenza Virus 2019-09-30 Completed Universit y of Vaccine [place] .5 mL 00:00:00 [facility] 6+ MO Branch TDAP 2019-09-30 Completed University of 00:00:00 [facility] Influenza Virus 2019-09-30 Completed Universit y of Vaccine [place] .5 mL 00:00:00 [facility] 6+ MO Branch TDAP 2019-09-30 Completed University of 00:00:00 [facility] Influenza Virus 2019-09-30 Completed Universit y of Vaccine [place] .5 mL 00:00:00 [facility] 6+ MO Branch TDAP 2019-09-30 Completed University of 00:00:00 [facility] Influenza Virus 2019-09-30 Completed Universit y of Vaccine Quad .5 mL 00:00:00 [facility] 6+ MO Branch TDAP 2019-09-30 Completed University of 00:00:00 [facility] Influenza Virus 2019-09-30 Completed Universit y of Vaccine [place] .5 mL 00:00:00 [place] [facility] 6+ MO Branch TDAP 2019-09-30 Completed University of 00:00:00 [facility] Influenza Virus 2019-09-30 Completed Universit y of Vaccine [place] .5 mL 00:00:00 [facility] 6+ MO Branch Tdap 2019-09-30 Completed University of 00:00:00 [facility] Influenza Virus 2019-09-30 Completed Universit y of Vaccine [place] .5 mL 00:00:00 [place] [facility] IM 6+ MO Branch TDAP 2019-09-30 Completed University of 00:00:00 [facility] Influenza Virus 2019-09-30 Completed Universit y of Vaccine Quad .5 mL 00:00:00 [place] [facility] IM 6+ MO Branch TDAP 2019-09-30 Completed University of 00:00:00 [facility] Influenza Virus 2019-09-30 Completed Universit y of Vaccine [place] .5 mL 00:00:00 [facility] IM 6+ MO Branch Tdap 2019-09-30 Completed University of 00:00:00 [facility] Influenza Virus 2019-09-30 Completed Universit y of Vaccine [place] .5 mL 00:00:00 [facility] IM 6+ MO Branch Tdap 2019-09-30 Completed University 00:00:00 [facility] Vital Signs Vital Name Observation Time Observation Value Comments Source Systolic blood 2023-03-29 21:32:00 108 mm[Hg] Univer sity of pressure [facility] Diastolic blood 2023-03-29 21:32:00 70 mm[Hg] Unive rsity of pressure [facility] Heart rate 2023-03-29 21:32:00 73 /min Universi ty of [facility] Respiratory rate 2023-03-29 21:32:00 18 /min Univ ersity [facility] Body height 2023-03-29 21:32:00 152.4 cm Universi ty [facility] Body weight 2023-03-29 21:32:00 69.4 kg Universi ty of [facility] BMI 2023-03-29 21:32:00 29.88 kg/m2 Universi ty [facility] Systolic blood 2022-11-15 19:38:00 109 mm[Hg] Univer sity of pressure [facility] Diastolic blood 2022-11-15 19:38:00 70 mm[Hg] Unive rsity of pressure [facility] Heart rate 2022-11-15 19:38:00 87 /min Universi ty of [facility] Respiratory rate 2022-11-15 19:38:00 16 /min Univ ersity of [facility] Body height 2022-11-15 19:38:00 152.4 cm Universi ty [facility] [place] [facility] Body weight 2022-11-15 19:38:00 69.854 kg Universi ty [facility] [place] [facility] BMI 2022-11-15 19:38:00 30.08 kg/m2 Universi ty [facility] [place] [facility] Oxygen saturation in 2022-11-15 19:38:00 98 /min University of Arterial blood by [place] [employer] [facility] oximetry Branch Systolic blood 2022-11-14 19:57:00 104 mm[Hg] Univer sity of pressure [place] [facility] Diastolic blood 2022-11-14 19:57:00 53 mm[Hg] Unive rsity of pressure [place] [facility] Heart rate 2022-11-14 19:57:00 84 /min Universi ty of [place] [facility] Respiratory rate 2022-11-14 19:57:00 18 /min Univ ersity of [place] [facility] Body height 2022-11-14 19:57:00 152.4 cm Universi ty of [place] [facility] Body weight 2022-11-14 19:57:00 69.4 kg Universi ty [facility] [place] [facility] BMI 2022-11-14 19:57:00 29.88 kg/m2 [facility]i ty [facility] [place] [facility] Systolic blood 2022-11-10 17:40:00 107 mm[Hg] Univer sity of pressure [place] [facility] Diastolic blood 2022-11-10 17:40:00 68 mm[Hg] Unive rsity of pressure [place] [facility] Heart rate 2022-11-10 17:40:00 77 /min Universi ty of [place] [facility] Respiratory rate 2022-11-10 17:40:00 16 /min Univ ersity of [place] [facility] Body height 2022-11-10 17:40:00 152.4 cm Universi ty [facility] [place] [facility] Body weight 2022-11-10 17:40:00 68.72 kg Universi ty [facility] [place] [facility] BMI 2022-11-10 17:40:00 29.59 kg/m2 [facility] [place] [facility] Oxygen saturation in 2022-11-10 17:40:00 98 /min University of Arterial blood by [place] [employer] [facility] Pulse oximetry Branch Systolic blood 2020-01-07 14:30:00 108 mm[Hg] Univer sity of pressure [place] [facility] Diastolic blood 2020-01-07 14:30:00 67 mm[Hg] Unive rsity of pressure [place] [facility] Heart rate 2020-01-07 14:30:00 66 /min Universi ty of [place] [facility] Body temperature 2020-01-07 14:30:00 36.56 [place] Univ ersity of [place] [facility] Branch Respiratory rate 2020-01-07 14:30:00 16 /min [facility] Body height 2020-01-07 14:30:00 152.4 cm [facility] Body weight 2020-01-07 14:30:00 68.55 kg [facility] BMI 2020-01-07 14:30:00 29.51 kg/m2 [facility] Systolic blood 2019-11-28 20:21:00 112 mm[Hg] [facility] Diastolic blood 2019-11-28 20:21:00 77 mm[Hg] [facility] Heart rate 2019-11-28 20:21:00 83 /min [facility] Body temperature 2019-11-28 20:21:00 36.56 [facility] Respiratory rate 2019-11-28 20:21:00 16 /min [facility] Body height 2019-11-28 20:21:00 152.4 cm [facility] Body weight 2019-11-28 20:21:00 70.081 kg [facility] BMI 2019-11-28 20:21:00 30.17 kg/m2 [facility] Systolic blood 2019-11-28 20:21:00 112 mm[Hg] [facility] Diastolic blood 2019-11-28 20:21:00 77 mm[Hg] [facility] Heart rate 2019-11-28 20:21:00 83 /min [facility] Body temperature 2019-11-28 20:21:00 36.56 [facility] Respiratory rate 2019-11-28 20:21:00 16 /min [facility] Body height 2019-11-28 20:21:00 152.4 cm [facility] Body weight 2019-11-28 20:21:00 70.081 kg [facility] BMI 2019-11-28 20:21:00 30.17 kg/m2 [facility] Systolic blood 2019-11-24 12:57:00 117 mm[Hg] [facility] Diastolic blood 2019-11-24 12:57:00 59 mm[Hg] [facility] Heart rate 2019-11-24 12:57:00 99 /min [facility] Body temperature 2019-11-24 12:57:00 36.44 [facility] Respiratory rate 2019-11-24 12:57:00 18 /min [facility] Oxygen saturation in 2019-11-24 12:57:00 100 /min [facility]terial blood by [facility] Pulse oximetry Branch Body height 2019-11-22 17:18:00 152.4 cm [facility] Body weight 2019-11-22 17:18:00 72.122 kg [facility] BMI 2019-11-22 17:18:00 31.05 kg/m2 [facility] Systolic blood 2019-11-24 12:57:00 117 mm[Hg] [facility] Diastolic blood 2019-11-24 12:57:00 59 mm[Hg] [facility] Heart rate 2019-11-24 12:57:00 99 /min [facility] Body temperature 2019-11-24 12:57:00 36.44 [facility] Respiratory rate 2019-11-24 12:57:00 18 /min [facility] Oxygen saturation in 2019-11-24 12:57:00 100 /min [facility] Arterial blood by [place] [employer] [facility] Pulse oximetry Branch Body height 2019-11-22 17:18:00 152.4 cm [facility] Body weight 2019-11-22 17:18:00 72.122 kg [facility] BMI 2019-11-22 17:18:00 31.05 kg/m2 [facility] Systolic blood 2019-11-18 13:42:00 124 mm[Hg] [facility] Diastolic blood 2019-11-18 13:42:00 70 mm[Hg] [facility] Heart rate 2019-11-18 13:42:00 79 /min [facility] Body temperature 2019-11-18 13:42:00 36.17 [facility] Respiratory rate 2019-11-18 13:42:00 16 /min [facility] Body height 2019-11-18 13:42:00 152.4 cm [facility] Body weight 2019-11-18 13:42:00 73.057 kg [facility] BMI 2019-11-18 13:42:00 31.46 kg/m2 [facility] Systolic blood 2019-11-18 13:42:00 124 mm[Hg] [facility] Diastolic blood 2019-11-18 13:42:00 70 mm[Hg] [facility] Heart rate 2019-11-18 13:42:00 79 /min [facility] Body temperature 2019-11-18 13:42:00 36.17 [facility] Respiratory rate 2019-11-18 13:42:00 16 /min [facility] Body height 2019-11-18 13:42:00 152.4 cm [facility] Body weight 2019-11-18 13:42:00 73.057 kg [facility] BMI 2019-11-18 13:42:00 31.46 kg/m2 [facility] Systolic blood 2019-11-11 13:57:00 118 mm[Hg] [facility] Diastolic blood 2019-11-11 13:57:00 69 mm[Hg] [facility] Heart rate 2019-11-11 13:57:00 82 /min [facility] Body temperature 2019-11-11 13:57:00 36.33 [facility] Respiratory rate 2019-11-11 13:57:00 16 /min [facility] Body height 2019-11-11 13:57:00 152.4 cm [facility] Body weight 2019-11-11 13:57:00 71.697 kg [facility] BMI 2019-11-11 13:57:00 30.87 kg/m2 [facility] Systolic blood 2019-11-11 13:57:00 118 mm[Hg] [facility] Diastolic blood 2019-11-11 13:57:00 69 mm[Hg] [facility] Heart rate 2019-11-11 13:57:00 82 /min [facility] Body temperature 2019-11-11 13:57:00 36.33 [facility] Respiratory rate 2019-11-11 13:57:00 16 /min [facility] Body height 2019-11-11 13:57:00 152.4 cm [facility] Body weight 2019-11-11 13:57:00 71.697 kg [facility] BMI 2019-11-11 13:57:00 30.87 kg/m2 [facility] Systolic blood 2019-10-27 15:32:00 114 mm[Hg] [facility] Diastolic blood 2019-10-27 15:32:00 66 mm[Hg] [facility] Heart rate 2019-10-27 15:32:00 83 /min [facility] Body temperature 2019-10-27 15:32:00 36.89 [facility] Respiratory rate 2019-10-27 15:32:00 16 /min [facility] Body height 2019-10-27 15:32:00 152.4 cm [facility] Body weight 2019-10-27 15:32:00 70.308 kg [facility] BMI 2019-10-27 15:32:00 30.27 kg/m2 [facility] Systolic blood 2019-10-13 15:00:00 116 mm[Hg] [facility] [place] [facility] Diastolic blood 2019-10-13 15:00:00 67 mm[Hg] [facility] Heart rate 2019-10-13 15:00:00 84 /min [facility] Body temperature 2019-10-13 15:00:00 36.39 [facility] Respiratory rate 2019-10-13 15:00:00 16 /min [facility] Body height 2019-10-13 15:00:00 152.4 cm [facility] Body weight 2019-10-13 15:00:00 69.31 kg [facility] BMI 2019-10-13 15:00:00 29.84 kg/m2 [facility] Systolic blood 2019-10-02 15:13:00 128 mm[Hg] [facility] Diastolic blood 2019-10-02 15:13:00 71 mm[Hg] [facility] Heart rate 2019-10-02 15:13:00 81 /min [facility] Body temperature 2019-10-02 15:13:00 36.22 [facility] Respiratory rate 2019-10-02 15:13:00 16 /min [facility] Body height 2019-10-02 15:13:00 152.4 cm [facility] Body weight 2019-10-02 15:13:00 67.586 kg [facility] BMI 2019-10-02 15:13:00 29.10 kg/m2 [facility] Systolic blood 2019-09-30 19:43:00 113 mm[Hg] [facility] Diastolic blood 2019-09-30 19:43:00 67 mm[Hg] [facility] Heart rate 2019-09-30 19:43:00 91 /min [facility] Body temperature 2019-09-30 19:43:00 36.22 [facility] Respiratory rate 2019-09-30 19:43:00 16 /min [facility] Body height 2019-09-30 19:43:00 152.4 cm [facility] Body weight 2019-09-30 19:43:00 67.189 kg [facility] BMI 2019-09-30 19:43:00 28.93 kg/m2 [facility] Procedures Procedure Date / Time Performing Clinician Source Performed INSURANCE CORRESPONDENCE 2022-11-21 05:01:00 Doctor Tiff, [facility] POCT TEST 2022-11-15 00:00:00 Ruddy Colbert [facility] ASSIGNMENT OF BENEFITS 2022-11-10 17:19:34 [facility] 2020-01-07 14:33:00 Rashid Cha [facility] CONSENT FOR CONTRACEPTION 2020-01-07 05:01:00 Doctor Tiff, [facility] CBC WITH DIFFERENTIAL 2019-11-23 09:13:00 Reynold Jones [facility] ARTERIAL CORD GAS 2019-11-22 23:50:00 [facility] VENOUS CORD GAS 2019-11-22 23:49:00 [facility] SECTION 2019-11-22 23:00:00 Fidelia Billings [facility] HEPATITIS B SURFACE 2019-11-22 20:42:00 [facility] ANTIGEN [facility] GALV ONLY - SYPHILIS 2019-11-22 20:42:00 [facility] IGG/IGM [facility] HB ABO GROUPING 2019-11-22 20:02:00 [facility] RHO (D) IMMUNE GLOBULIN 2019-11-22 20:02:00 Reynold Jones [facility] CORONAVIRUS COVID-19 2019-11-22 17:09:00 [facility] POCT URINALYSIS 2019-11-18 13:49:00 Carla Rajan [facility] POCT URINALYSIS 2019-11-11 14:00:00 Carla Rajan [facility] POCT URINALYSIS 2019-10-27 17:09:00 Carla Rajan [facility] AUTHORIZATION TO RELEASE 2019-10-09 06:01:00 Doctor Matthew, [facility] PHI TO [facility] TDAP VACCINE, >11 YRS, IM 2019-09-30 20:39:21 Carla Rajan [facility] FLU VACC ([phone]), 6+ 2019-09-30 20:22:55 Carla Rajan [facility] MONTHS, IM, QUAD [facility] POCT URINALYSIS W/O 2019-09-30 19:35:00 Carla Rajan [facility] [place] SPECIFIC GRAVITY [facility] POCT TEST 2019-09-30 19:34:00 Carla Rajan [facility] ASSIGNMENT OF BENEFITS 2019-09-30 19:11:56 Doctor Un[facility] [place] [facility] Encounters Start End Encounter Admission Attending Care Care Encounter Source Date/Time Date/Time Type Type Clinicians Facility Department ID 2021-06-09 Outpatient [facility] [id number] [facility] 2023-03-29 Outpatient R RUDDY COLBERT [facility] [id number] Univers 16:30:00 16:37:41 RUDDY COLBERT [facility] 2023-03-29 2023-03-29 [facility] 1.2.840.114 [id number] Univers 16:30:00 16:37:41 Visit Ruddy BULLARD [id number] it y of WOMEN'S 4.2.7.2.686 [facility] [id number] [place] [address] Branch 2023-02-07 2023-02-07 Outpatient R RUDDY COLBERT [facility] B [id number] Univers 13:00:00 13:00:00 RUDDY COLBERT [facility] 2022-12-13 2022-12-13 Outpatient [facility] [id number] Moy 16:42:16 16:42:16 [id number] Gee 2022-12-13 2022-12-13 Outpatient R [facility] [id number] Univers 15:15:00 [facility] 2022-11-22 2022-11-22 Telephone Mauricio [facility] 1.2.840.114 [id number] Univers 00:00:00 00:00:00 Brittni ALEAH [id number] it [place] [facility] [place] [facility] [id number] [address] 2022-11-21 2022-11-21 Orders Doctor ESTUARDO 1.2.840.114 [id number] Univers 00:00:00 00:00:00 Only Unassigned, LUKE 350.1.13.10 ity of [place] [facility] 4.2.7.2.686 Juan as [phone] [place] [address] Branch 2022-11-20 2022-11-20 Telephone [facility] 1.2.840.11 [id number] Univers 00:00:00 00:00:00 Ruddy BULLARD 350.1.13.10 [place] [facility] [place] [facility] [id number] [address] 2022-11-16 2022-11-16 Telephone [facility] 1.2.840.11 [id number] Univers 00:00:00 00:00:00 Ruddy BULLARD 350.1.13.10 [place] [id number] [address] 2022-11-15 2022-11-15 Outpatient R RUDDY COLBERT [facility] B [id number] Univers 14:30:00 15:04:36 RUDDY COLBERT [facility] 2022-11-15 2022-11-15 [facility] 1.2.840.114 [id number] Univers 14:30:00 15:04:36 Visit Ruddy BULLARD 350.1.13.10 [place] [id number] [address] 2022-11-14 2022-11-14 Outpatient R RUDDY COLBERT [facility] B [id number] Univers 15:00:00 15:16:26 RUDDY COLBERT [facility] 2022-11-14 2022-11-14 Office [facility] 1.2.840.114 [id number] Univers 15:00:00 15:16:26 Visit Ruddy BULLARD 350.1.13.10 [place] [id number] [facility] [address] 2022-11-10 2022-11-10 Outpatient R JENSENCECI [facility] B [id number] Univers 13:00:00 13:04:39 TRIMADELEINE RUDDY ity of [facility] 2022-11-10 2022-11-10 Office [facility] 1.2.840.114 [id number] Univers 13:00:00 13:04:39 Visit Ruddy BULLARD 350.1.13.10 [place] [id number] [address] 2022-11-10 2022-11-10 Orders Doctor ESTUARDO 1.2.840.114 [id number] Univers 00:00:00 00:00:00 Only Unassigned, LUKE 350.1.13.10 ity of [place] [facility] 4.2.7.2.686 Juan as [id number] [place] [address] Branch 2020-11-02 2020-11-02 Patient Zander [facility] 1.2.840.114 [id number] Univers 00:00:00 00:00:00 Outreach Declan PRIMARY 350.1.13.[address] [facility] [place].7.[place] [id number] [place] dical [address] 2020-01-07 2020-01-07 [facility] 1.2.840.114 [id number] Univers 09:23:30 10:10:21 Visit Rashid Kidd YOUTH MINISTRY DIRECTOR 350.1.13.10 ity of [facility] 4.2.7.2.686 Juan as MATERNAL [id number] Med ical & CHILD [address] [facility] 2020-01-07 2020-01-07 Outpatient R STARLA [facility] [id number] Univers 09:00:00 09:00:00 RASHID christie o f [facility] 2020-01-07 2020-01-07 Orders Doctor ESTUARDO 1.2.840.114 [id number] Univers 00:00:00 00:00:00 Only Unassigned, LUKE 350.1.13.10 ity of [place] [facility] 4.2.7.2.686 Juan as [id number] [address] 2019-12-16 2019-12-16 Outpatient R STARLA [facility] [id number] Univers 09:15:00 09:15:00 RASHID moore [facility] 2019-12-16 2019-12-16 Telemedicnarciso [facility] 1.2.840.114 [id number] Univers 07:34:01 09:03:14 ne Visit Rashid Kidd YOUTH MINISTRY DIRECTOR 350.1.13.10 ity of [facility] 4.2.7.2.686 Juan as MATERNAL [id number] Med ical & CHILD [address] [place] [address] 2019-12-16 2019-12-16 Telembraulio [facility] 1.2.840.114 [id number] 07:34:01 09:03:14 ne Visit Rashid Bernabe YOUTH MINISTRY DIRECTOR [id number] [facility] 4.2.7.2.686 MATERNAL [id number] & CHILD 107 [facility] 2019-11-28 2019-11-28 Nurse Visit, Qian Nurse [facility] 1.2 .840.114 [id number] Univers 14:57:15 15:27:42 Visit Carla Rajan YOUTH MINISTRY DIRECTOR 350.1.13. 10 ity of [facility] 4.2.7.2.686 Juan as MATERNAL [id number] Med ical & CHILD [address] [place] [address] 2019-11-28 2019-11-28 Nurse Visit, [facility] 1.2.840.114 [id number] 14:57:15 15:27:42 Visit Qian YOUTH MINISTRY DIRECTOR 350.1.13.10 Nurse [facility] 4.2.7.2.686 MATERNAL [id number] & CHILD 107 [facility] 2019-11-28 2019-11-28 Outpatient R SATINDER [facility] [id number] Univers 15:00:00 15:00:00 CARLA ity o f [facility] 2019-11-25 2019-11-25 Outpatient R AKINSIPE, [facility] [id number] Univers 09:30:00 09:30:00 CARLA ity o f [facility] 2019-11-25 2019-11-25 Outpatient R AKINSIPE, [facility] [id number] Univers 09:15:00 09:15:00 CARLA ity o [facility] 2019-11-22 2019-11-24 [facility] 1.2.030.114 [id number] Univers 11:49:00 12:16:00 Encounter Fidelia [place] 350.1.13.10 ity of HOSPITAL 4.2.7.2.686 Juan as [id number] [address] 2019-11-22 2019-11-24 [facility] 1.2.358.181 [id number] 11:49:00 12:16:00 Encounter Fidelia [place] 350.1.13.10 HOSPITAL 4.2.7.2.686 [id number] [facility] 2019-11-18 2019-11-18 Routine Akinsipe, [facility] 1.2.656.554 [id number] Univers 08:34:45 08:55:27 Carla C YOUTH MINISTRY DIRECTOR 350.1.13.10 ity of Visit REGIONAL 4.2.7.2.686 Juan as MATERNAL [id number] Med ical & CHILD [address] [place] [address] 2019-11-18 2019-11-18 Routine Akinsipe, [facility] 1.2.080.150 [id number] 08:34:45 08:55:27 Carla C YOUTH MINISTRY DIRECTOR 350.1.13.10 Visit REGIONAL 4.2.7.2.686 MATERNAL [id number] & CHILD [address] [place] [address] 2019-11-18 2019-11-18 Outpatient R AKINSIPE, [facility] [id number] Univers 08:45:00 08:45:00 CARLA ity o f [facility] 2019-11-11 2019-11-11 Routine Akinsipe, [facility] 1.2.640.783 [id number] Univers 08:49:21 09:26:07 Carla C YOUTH MINISTRY DIRECTOR 350.1.13.10 ity of Visit REGIONAL 4.2.7.2.686 Juan as MATERNAL [id number] [facility] & CHILD [address] [place] [address] 2019-11-11 2019-11-11 Routine Akinsipe, [facility] 1.2.997.226 [id number] 08:49:21 09:26:07 Carla C YOUTH MINISTRY DIRECTOR 350.1.13.10 Visit REGIONAL 4.2.7.2.686 MATERNAL [id number] & CHILD [address] [place] [address] 2019-11-11 2019-11-11 [facility] [id number] Univers 09:00:00 09:00:00 CARLA ity o f [facility] 2019-10-27 2019-10-27 [facility], [facility] 1.2.624.302 [id number] Univers 09:42:46 12:09:33 Carla C YOUTH MINISTRY DIRECTOR 350.1.13.10 ity of Visit REGIONAL 4.2.7.2.686 Juan as MATERNAL [id number] [facility] & [address] 2019-10-27 2019-10-27 Outpatient R AKINSHANT, [facility] [id number] Univers 09:30:00 09:30:00 CARLA ity o f [facility] 2019-10-13 2019-10-13 Routine Faculty, Han [facility] 1.2 .840.114 [id number] Univers 08:47:13 11:29:01 Leandro Neff YOUTH MINISTRY DIRECTOR 350.1.13.10 ity of Visit REGIONAL 4.2.7.2.686 Juan as MATERNAL [id number] [facility] & CHILD [address] [place] [address] 2019-10-13 2019-10-13 Outpatient R [facility] [id number] Univers 09:00:00 09:00:00 ity of [facility] 2019-10-09 2019-10-09 Orders Doctor MARTE 1.2.840.114 [id number] Univers 00:00:00 00:00:00 Only Unassigned, LUKE 350.1.13.10 ity of [facility] 4.2.7.2.686 Juan as [id number] [address] 2019-10-02 2019-10-02 Nurse Visit, Qian Nurse [place] 1.2 .840.114 [id number] Univers 09:02:47 09:32:54 Visit Carla Rajan YOUTH MINISTRY DIRECTOR 350.1.13. 10 ity of [facility] 4.2.7.2.686 Juan as MATERNAL [id number] [facility] ical & CHILD [address] [place] [address] 2019-10-01 2019-10-01 Technology Program Manager Ultrasound, [place] 1.[id number] [facility] 09:01:49 10:01:49 Visit Carla Rajan YOUTH MINISTRY DIRECTOR 350.1.13. 10 ity of [facility] 4.2.7.2.686 Juan as MATERNAL [phone] [facility] ical & CHILD [address] [facility] 2019-10-01 2019-10-01 Technology Program Manager Lab, Qian [place] 1.2.840. 114 [id number] Univers 08:36:33 08:41:17 Visit Carla Rajan YOUTH MINISTRY DIRECTOR 350.1.13. 10 ity of [facility] 4.2.7.2.686 Juan as MATERNAL [id number] [facility] ical & CHILD [address] [place] [address] 2019-10-01 2019-10-01 Abstract Satinder MDJUAN 1.2.840.114 [id number] Univers 00:00:00 00:00:00 Carla C YOUTH MINISTRY DIRECTOR 350.1.13.10 ity of [facility] 4.2.7.2.686 Juan as MATERNAL [id number] [facility] ical & CHILD [address] [place] [address] 2019-10-01 2019-10-01 Telephone Satinder MDJUAN 1.2.840.114 [id number] Univers 00:00:00 00:00:00 Carla C YOUTH MINISTRY DIRECTOR 350.1.13.10 ity of [facility] 4.2.7.2.686 Juan as MATERNAL [id number] [facility] ical & CHILD [address] [place] [address] 2019-09-30 2019-09-30 Initial Akinsipe, [facility] 1.2.738.247 [id number] Univers 13:30:37 14:59:32 Carla C YOUTH MINISTRY DIRECTOR 350.1.13.10 ity of Visit [facility] 4.2.7.2.686 Juan as MATERNAL [id number] Med ical & CHILD [address] [place] [address] 2019-09-30 2019-09-30 Orders Doctor ESTUARDO 1.2.840.[id number] [place] [address] 00:00:00 00:00:00 Only Unassigned, LUKE 350.1.13.10 ity of [place] [facility] 4.2.7.2.686 Juan as [phone] [address] Results Test Description Test Time Test Comments Results Result Comments Source POCT TEST 2022-11-15 19:42:00 Test Item Value Reference Range Interpretation Comme nts POCT PREG (test code = 1605) Negative On board controls acceptable with C Line (test code = 3574) Yes POCT PREG LOT # (test code = 3575) POCT PREG TEST DATE (test code = 3576) [id number] 19:42:00 Test Item Value Reference Range Interpretation Comments POCT PREG (test code = 1605) Negative On board controls acceptable with C Yes Line (test code = 3574) POCT PREG LOT # (test code = 3575) POCT PREG TEST DATE (test code = 3576) [facility] [id number] 14:33:00 Test Item Value Reference Range Interpretation Comments POCT PREG (test code = 1605) Negative On board controls acceptable with C Yes Line (test code = 3574) POCT PREG LOT # (test code = 3575) POCT PREG TEST DATE (test code = 3576) [facility] [id number] 14:33:00 Test Item Value Reference Range Interpretation Comments POCT PREG (test code = 1605) Negative On board controls acceptable with C Yes Line (test code = 3574) POCT PREG LOT # (test code = 3575) POCT PREG TEST DATE (test code = 3576) [facility] SYPHILIS [id number] 15:38:00 Test Item Value Reference Range Interpretation Comments Syphilis IgG/IgM (test Non-reactive Non-reactive code = 35638-0) JOSE RAFAEL (test code = JOSE RAFAEL) Non-reactive - No serologic evidence of T. pallidum infection. Cannot exclude incubating or early syphilis. Submit a second specimen in 2-4 weeks if syphilis is clinically suspected. Equivocal - Further testing to follow. Reactive - Further testing to follow. Lab Interpretation (test Normal code = 02482-3) [facility] WITH [id number] 09:57:00 Test Item Value Reference Range Interpretation Comments WBC (test code = See_Comment H [Automated 1490-2) message] The system which generated this result [...] RDW-SD (test code = 44.9 fL 38.5-49 18440-5) RDW-CV (test code = 13.5 % 11.5-14 788-0) PLT (test code = See_Comment [Automated 777-3) message] The system which generated this result transmit gianna reference range : 135 - 361 10*3/ ?L. The reference range was not u sed to interpret th is result as normal/abnormal . MPV (test code = 11.5 fL 9.4-13.3 77826-9) NRBC/100 WBC (test See_Comment [Automat ed code = 8248255754) message] The system which generated this result transmit gianna reference range : 0.0 - 10.0 /100 WBCs. The reference range was not used to interpret this result as normal/abnormal . NRBC x10^3 (test code <0.01 See_Comment [Auto mated = 9192462382) message] The system which generated this result transmit gianna reference range : 10*3/?L. The reference range was not used to interpret this result as normal/abnormal . GRAN MAT (NEUT) % 82.3 % (test code = 770-8) IMM GRAN % (test code 1.00 % = 5718194349) LYMPH % (test code = 10.2 % 736-9) MONO % (test code = 5.6 % 5905-5) EOS % (test code = 0.5 % 713-8) BASO % (test code = 0.4 % 706-2) GRAN MAT x10^3(ANC) 14.09 10*3/uL 1.5-10.3 H (test code = 8675479078) IMM GRAN x10^3 (test 0.17 10*3/uL 0-0.06 H code = 3923541311) LYMPH x10^3 (test code 1.74 10*3/uL 0.7-7.4 = 731-0) MONO x10^3 (test code 0.96 10*3/uL 0-0.5 H = 742-7) EOS x10^3 (test code = 0.09 10*3/uL 0-0.4 711-2) BASO x10^3 (test code 0.06 10*3/uL 0-0.1 = 704-7) BANDS (test code = Increased A 9658312519) Lab Interpretation Abnormal (test code = 60894-3) [facility] IMMUN[facility] [id number] 04:07:12 Test Item Value Reference Range Interpretation Comments RHIG CANDIDATE? No- see comment Patient i s not a (test code = candidate for R hIg- 5055) Patient is Rh Positive.Perfor med at [facility] Laboratory Services - [facility] Blood [address] [place] [id number] Free: [phone] A No. [id number] [facility] CORD [id number] 23:57:00 Test Item Value Reference Range Interpretation Comments BASE EXCESS, CORD (test mEq/L code = 3817344153) AC PH, CORD (BEAKER) 7.18-7.38 (test code = 1925296969) PC02, CORD (test code = See_Comment H [Au tomated message] 6652081529) The system whic h generated this result transmitted ref erence range: 32 - 66 mmHg. The reference r devin was not used to interpret this result as normal/abnor mal. PO2, CORD (test code = See_Comment [Aut omated message] 8651052537) The system [facility] generated this result transmitted ref erence range: 10 - 30 mmHg. The reference r devin was not used to interpret this result as normal/abnor mal. BICARBONATE, CORD (test See_Comment H [Au tomated message] code = 2819156615) The syste m which generated this result transmitted ref erence range: 17 - 27 mEq/L. The reference r devin was not used to interpret this result as normal/abnor mal. Lab Interpretation (test Abnormal code = 25956-0) [id number] 23:52:00 Test Item Value Reference Range Interpretation Comments VENOUS BASE EXCESS, CORD mEq/L (test code = 2515508475) VENOUS PH, CORD (test 7.25-7.45 code = 7854399699) VENOUS PC02, CORD (test See_Comment H [Au tomated message] code = 2444396973) The syste m which generated this result transmitted ref erence range: 27 - 49 mmHg. The reference r devin was not used to interpret this result as normal/abnor mal. VENOUS PO2, CORD (test See_Comment [Aut omated message] code = 4310245360) The syste m which generated this result transmitted ref erence range: 17 - 41 mmHg. The reference r devin was not used to interpret this result as normal/abnor mal. VENOUS BICARBONATE, CORD See_Comment [A utomated message] (test code = 4378695540) The system which generated this result transmitted ref erence range: 12 - 29 mEq/L. The reference r devin was not used to interpret this result as normal/abnor mal. Lab Interpretation (test Abnormal code = 93526-4) [facility]atitis B Surface [id number] 22:06:00 Test Item Value Reference Range Interpretation Comments HBsAg Semi-Quantitative (test code = Negative Negative 5195-3) [facility]Type and Screen - ONCE [id number] 21:39:44 Test Item Value Reference Range Interpretation Comments ABO & RH (test code O POSITIVE Performe d at [facility] = 20) [facility] [address] [facility] [place] [address]Hfsa Free: [phone] A No. [id number] IAT (test code = Negative Performed a t [facility] 1185) [facility] [place] [address]Wcnq Free: [phone] A No. [id number] [facility] HospitalCORONAVIRUS COVID-19 [id number] 18:00:00 Test Item Value Reference Range Interpretation Comments SARS-CoV-2 (test code = Not Detected Not Detected 13184-9) JOSE RAFAEL (test code = JOSE RAFAEL) ID NOW COVID-19 Assay is an isothermal nucleic acid amplification test intended for the qualitative detection of nucleic acid from SARS-CoV-2 viral RNA in nasopharyngeal (PAPER BAG MAKER) specimens. It is used under Emergency Use [...] indicated. Lab Interpretation Normal (test code = 87618-3) [facility]PO[facility] URINALYS[facility] W SPECIFIC [id number] 13:49:00 Test Item Value Reference Range Interpretation [...] POCT U APPEAR (test code = 3267) [facility] URINALYSIS W SPECIFIC [id number] 14:00:00 Test Item Value Reference Range Interpretation [...] POCT U APPEAR (test code = 3267) [facility] URINALYSIS W SPECIFIC [id number] 14:00:00 Test Item Value Reference Range Interpretation [...] POCT U APPEAR (test code = 3267) [facility] URINALYSIS W SPECIFIC [id number] 17:09:00 Test Item Value Reference Range Interpretation [...] POCT U APPEAR (test code = 3267) [facility] URINALYSIS W/O SPECIFIC [id number] 19:35:00 Test Item Value Reference Range Interpretation [...] code = 3257) Neg Negative - Negative [facility] URINALYSIS W/O SPECIFIC [id number] 19:35:00 Test Item Value Reference Range Interpretation [...] code = 3257) Neg Negative - Negative [facility] URINALYSIS W/O SPECIFIC [id number] 19:35:00 Test Item Value Reference Range Interpretation [...] code = 3257) Neg Negative - Negative [facility] URINALYSIS W/O SPECIFIC [id number] 19:35:00 Test Item Value Reference Range Interpretation [...] code = 3257) Neg Negative - Negative [facility] [id number] 19:34:00 Test Item Value Reference Range Interpretation Comments POCT PREG (test code = 1605) Positive On board controls acceptable with C Yes Line (test code = 3574) POCT PREG LOT # (test code = 3575) POCT PREG TEST DATE (test code = 3576) [facility] [id number] 19:34:00 Test Item Value Reference Range Interpretation Comments POCT PREG (test code = 1605) Positive On board controls acceptable with C Yes Line (test code = 3574) POCT PREG LOT # (test code = 3575) POCT PREG TEST DATE (test code = 3576) [facility]PO[facility] [id number] 19:34:00 Test Item Value Reference Range Interpretation Comments POCT PREG (test code = 1605) Positive On board controls acceptable with C Yes Line (test code = 3574) POCT PREG LOT # (test code = 3575) POCT PREG TEST DATE (test code = 3576) [facility]PO[facility] [id number] 19:34:00 Test Item Value Reference Range Interpretation Comments POCT PREG (test code = 1605) Positive On board controls acceptable with C Yes Line (test code = 3574) POCT PREG LOT # (test code = 3575) POCT PREG TEST DATE (test code = 3576) [facility]
--- NOTE | 2023-04-14 00:43 | EDPHYS ---
Physician Documentation [facility] Name: Atiya Castellanos Age: 22 yrs Sex: Female : 2000 Arrival Date: 04/14/2023 Time: 00:04 Bed 16 Private MD: ED Physician Lisandro Judd HPI: 04/14 00:42 This 22 yrs old Female presents to ER via Ambulatory with complaints of Allergic snw Reaction. 00:42 The patient presents with itching, rash, redness of skin. Onset: The symptoms/episode snw began/occurred suddenly, just prior to arrival. Associated signs and symptoms: Pertinent positives: rash, swelling. Possible causes: The patient has no known obvious cause for the symptoms. At home the patient or guardian has treated the symptoms with EpiPen. Severity of symptoms: At their worst the symptoms were moderate. The patient has experienced similar episodes in the past. The patient has not recently seen a physician. 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 - Social history:: Smoking status: Patient denies any tobacco usage or history of. ROS: 00:40 Eyes: Negative for injury, pain, redness, and discharge, ENT: Negative for injury, snw pain, and discharge, Neck: Negative for injury, pain, and swelling, Cardiovascular: Negative for chest pain, palpitations, and edema, Respiratory: Negative for shortness of breath, cough, wheezing, and pleuritic chest pain, Abdomen/GI: Negative for abdominal pain, nausea, vomiting, diarrhea, and constipation, Back: Negative for injury and pain, : Negative for injury, bleeding, discharge, and swelling, MS/Extremity: Negative for injury and deformity, Neuro: Negative for headache, weakness, numbness, tingling, and seizure, Psych: Negative for depression, anxiety, suicide ideation, homicidal ideation, and hallucinations. 00:40 Constitutional: Positive for red and puffy all over. 00:40 Skin: Positive for swelling, hives. Exam: 00:40 Constitutional: This is a well developed, well nourished patient who is awake, alert, snw and in no acute distress. Head/Face: Normocephalic, atraumatic. Eyes: Pupils equal round and reactive to light, extra-ocular motions intact. Lids and lashes normal. Conjunctiva and sclera are non-icteric and not injected. Cornea within normal limits. Periorbital areas with no swelling, redness, or edema. ENT: Nares patent. No nasal discharge, no septal abnormalities noted. Tympanic membranes are normal and external auditory canals are clear. Oropharynx with no redness, swelling, or masses, exudates, or evidence of obstruction, uvula midline. Mucous membranes moist. Neck: Trachea midline, no thyromegaly or masses palpated, and no cervical lymphadenopathy. Supple, full range of motion without nuchal rigidity, or vertebral point tenderness. No Meningismus. Chest/axilla: Normal chest wall appearance and motion. Nontender with no deformity. No lesions are appreciated. Cardiovascular: Regular rate and rhythm with a normal S1 and S2. No gallops, murmurs, or rubs. Normal PMI, no JVD. No pulse deficits. Respiratory: Lungs have equal breath sounds bilaterally, clear to auscultation and percussion. No rales, rhonchi or wheezes noted. No increased work of breathing, no retractions or nasal flaring. Abdomen/GI: Soft, non-tender, with normal bowel sounds. No distension or tympany. No guarding or rebound. No evidence of tenderness throughout. Back: No spinal tenderness. No costovertebral tenderness. Full range of motion. Skin: Warm, dry with normal turgor. Normal color with no rashes, no lesions, and no evidence of cellulitis. MS/ Extremity: Pulses equal, no cyanosis. Neurovascular intact. Full, normal range of motion. Neuro: Awake and alert, GCS 15, oriented to person, place, time, and situation. Cranial nerves II-XII grossly intact. Motor strength 5/5 in all extremities. Sensory grossly intact. Cerebellar exam normal. Normal gait. Psych: Awake, alert, with orientation to person, place and time. Behavior, mood, and affect are within normal limits. Vital Signs: 00:14 BP 129 / 74; Pulse 87; Resp 18; Temp 98.6; Pulse Ox 100% ; Weight 63.5 kg; Height 5 ft. vc1 2 in. ; Pain 0/10; 01:00 BP 114 / 70; Pulse 82; Resp 16; Temp 98.2; Pulse Ox 100% on R/A; Pain 0/10; pf1 00:14 Body Mass Index 25.61 (63.50 kg, 157.48 cm) vc1 00:14 Pain Scale: Adult vc1 01:00 Pain Scale: Adult pf1 MDM: 00:32 Patient medically screened. snw 00:41 Differential diagnosis: anaphylaxis, angioedema, urticaria. Data reviewed: vital signs, snw nurses notes. Counseling: I had a detailed discussion with the patient and/or guardian regarding the historical points, exam findings, and any diagnostic results supporting the discharge/admit diagnosis, the need for outpatient follow up, for definitive care, to return to the emergency department if symptoms worsen or persist or if there are any questions or concerns that arise at home. Special discussion: Based on the history and exam findings, there is no indication for further emergent testing or inpatient evaluation. 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 00:44 ED course: Pt states she has allergic reactions "quite often", pt has not followed up snw with allergy/immunology. . Administered Medications: No medications were administered Disposition Summary: 04/14/23 00:43 Discharge Ordered Location: Home snw Condition: Stable snw Diagnosis - Allergy, unspecified snw Followup: snw - With: Emergency Department - When: As needed - Reason: Worsening of condition Followup: snw - With: Private Physician - When: 2 - 3 days - Reason: Recheck today's complaints, Continuance of care, Re-evaluation by your physician Discharge Instructions: - Discharge Summary Sheet snw - Allergies, Adult snw Forms: - Medication Reconciliation Form snw - Thank You Letter snw - Antibiotic Education snw - Prescription Opioid Use snw - Patient Portal Instructions snw - Leadership Thank You Letter snw Prescriptions: - Zyrtec 10 mg Oral Tablet - take 1 tablet by ORAL route once daily As needed; 20 tablet; Refills: 0, snw Product Selection Permitted - Pepcid 20 mg Oral Tablet - take 1 tablet by ORAL route once daily; 20 tablet; Refills: 0, Product snw Selection Permitted Signatures: Levin, Cindy, AIR BRUSH ARTIST-C AIR BRUSH ARTIST-Csnw Calcote, Jayna, RN RN vc1
--- NOTE | 2023-04-14 00:43 | ER ---
Nurse's Notes [facility] Name: Atiya Castellanos Age: 22 yrs Sex: Female : 2000 Arrival Date: 04/14/2023 Time: 00:04 Bed 16 Private MD: Diagnosis: Allergy, unspecified Presentation: 04/14 00:14 Chief complaint: Patient states: I was having an allergic reaction, turning red and vc1 broke out in hives. I took my epi pen and now I'm really shaky and dizzy and light headed. Coronavirus screen: Client denies travel out of the [place] in the last 14 days. At this time, the client does not indicate any symptoms associated with coronavirus-19. Ebola Screen: Patient negative for fever greater than or equal to 101.5 degrees Fahrenheit, and additional compatible Ebola Virus Disease symptoms Patient denies exposure to infectious person. Patient denies travel to an Ebola-affected area in the 21 days before illness onset. No symptoms or risks identified at this time. Onset: The symptoms/episode began/occurred suddenly. Anaphylaxis evaluation, no signs or symptoms of anaphylaxis were noted. Initial Sepsis Screen: Does the patient meet any 2 criteria? No. Patient's initial sepsis screen is negative. Does the patient have a suspected source of infection? No. Patient's initial sepsis screen is negative. Risk Assessment: Do you want to hurt yourself or someone else? Patient reports no desire to harm self or others. Onset of symptoms was April 13, 2023 at 23:45. 00:14 Method Of Arrival: Ambulatory vc1 00:14 Acuity: CHRIS 3 vc1 Triage Assessment: 00:17 General: Appears in no apparent distress. uncomfortable, Behavior is anxious. Pain: vc1 Denies pain. EENT: No deficits noted. No signs and/or symptoms were reported regarding the EENT system. Neuro: Level of Consciousness is awake, alert, obeys commands, Oriented to person, place, time, situation, Appropriate for age. Cardiovascular: Reports lightheadedness, since dizzy, shaky. Respiratory: Airway is patent Respiratory effort is even, unlabored, Respiratory pattern is regular, symmetrical. GI: No deficits noted. No signs and/or symptoms were reported involving the gastrointestinal system. : No deficits noted. No signs and/or symptoms were reported regarding the genitourinary system. Derm: No deficits noted. No signs and/or symptoms reported regarding the dermatologic system. Musculoskeletal: No deficits noted. No signs and/or symptoms reported regarding the musculoskeletal system. 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 - Social history:: Smoking status: Patient denies any tobacco usage or history of. Screenin:00 [facility] ED Fall Risk Assessment (Adult) History of falling in the last 3 months, pf1 including since admission No falls in past 3 months (0 pts) Confusion or Disorientation No (0 pts) Intoxicated or Sedated No (0 pts) Impaired Gait No (0 pts) Mobility Assist Device Used No (0 pt) Altered Elimination No (0 pt) Score/Fall Risk Level 0 - 2 = Low Risk Oriented to surroundings, Maintained a safe environment, Educated pt \T\ family on fall prevention, incl call for assistance when getting out of bed, Assessed \T\ reinforced patient's understanding of fall precautions, Provided non-skid footwear, Hourly rounding (assess needs \T\ fall precautionary measures) done, Used ambulatory aids as needed (educated on \T\ assisted with), Used gait belt as appropriate. 01:06 Abuse screen: Denies threats or abuse. Denies injuries from another. Nutritional ha1 screening: No deficits noted. Tuberculosis screening: No symptoms or risk factors identified. Assessment: 01:06 Reassessment: Patient and/or family updated on plan of care and expected duration. Pain ha1 level reassessed. Patient is alert, oriented x 3, equal unlabored respirations, skin warm/dry/pink. Vital Signs: 00:14 BP 129 / 74; Pulse 87; Resp 18; Temp 98.6; Pulse Ox 100% ; Weight 63.5 kg; Height 5 ft. vc1 2 in. ; Pain 0/10; 01:00 BP 114 / 70; Pulse 82; Resp 16; Temp 98.2; Pulse Ox 100% on R/A; Pain 0/10; pf1 00:14 Body Mass Index 25.61 (63.50 kg, 157.48 cm) vc1 00:14 Pain Scale: Adult vc1 01:00 Pain Scale: Adult pf1 ED Course: 00:06 Patient arrived in ED. mr 00:10 Cindy Levin FNP-C [facility]. snw 00:10 Lisandro Judd MD is Attending Physician. snw 00:16 Triage completed. vc1 00:18 Arm band placed on right wrist. vc1 00:19 Patient has correct armband on for positive identification. Bed in low position. Call ha1 light in reach. Side rails up X 1. 01:06 No provider procedures requiring assistance completed. Patient did not have IV access ha1 during this emergency room visit. 01:10 Provided Education on: follow up with an water softener servicer. pf1 Administered Medications: No medications were administered Medication: 01:06 VIS not applicable for this client. ha1 Outcome: 00:43 Discharge ordered by . snw 01:11 Discharged to home ambulatory, with family. pf1 01:11 Condition: improved 01:11 Discharge instructions given to patient, Instructed on discharge instructions, follow up and referral plans. Demonstrated understanding of instructions, follow-up care, medications, Prescriptions given X 2. 01:12 Patient left the ED. pf1 Signatures: Cindy Levin FNP-C FNP-Kevin Gus Holli wilkinson SamirpriscillaJayna, RN RN vc1 Yamileth Mcnally RN RN ha1 Erica Pimentel RN RN pf1
[2023-04-14 01:42] VITALS: O2SAT 100
[2023-04-14 01:44] VITALS: BP 114/70; TEMP 98.2
== END 2023-04-14 01:12 | disposition home or self-care (01) ==
LOC: ER 00:04
DX: R21 Rash and other nonspecific skin eruption (principal); L50.9 Urticaria, unspecified; Z91.011 Allergy to milk products; Z91.018 Allergy to other foods
CPT/HCPCS: 99283

== ENCOUNTER 2023-04-15 17:55 | Emergency (ER) | payer OTHER, SELFPAY ==
--- OUTSIDE RECORDS SUMMARY | 2023-04-15 18:01 | XMS REPORT | Continuity of Care Document ---
:2000 Author Organization [facility] t Address [address] [place] [address] [address] [place] [address] Care Team Providers Name Role Phone ULYSSES PERERA Micheal Primary Care Physician Unavailable RUDDY COLBERT Attending Clinician Unavailable RUDDY COLBERT Attending Clinician Unavailable Brittni Martínez RN Attending Clinician Unavailable Doctor Unassigned, [place] Attending Clinician Unavailable RASHID CHA Attending Clinician Unavailable Declan Fermin DO Attending Clinician Rashid Moses Attending Clinician Visit, Qian Nurse Attending Clinician Unavailable Carla Ramos Attending Clinician [phone] CARLA RAJAN Attending Clinician Unavailable Fidelia Billings MD Attending Clinician Faculty, Han Marquez Attending Clinician Unavailable Leandro Neff MD Attending Clinician Ultrasound, Ay[place] Attending Clinician Unavailable Lab, Qian Attending Clinician Unavailable Fidelia Billings MD Admitting Clinician Payers Payer Name Policy Type Policy Number Effective Date Expiration Date Belinda [employer] [id number] 2019 HEALTH 00:00:00 Problems Condition Condition Condition Status Onset Resolution Last Treating Co mments Source Name Details Category Date Date Treatment Clinician Date Encounter Encounter Disease Active Uni vers for IUD for IUD 4-04 [place] [facility] [place] Counseling Counseling Disease Active U nivers for for 3-31 ity of control control 00:00: [place] regarding regarding [facility] intrauteri intrauteri Br anch ne device ne device (IUD) (IUD) Nexplanon Nexplanon Disease Active Uni vers removal removal 3-31 ity of 00:00: [address] Disease Active U nivers care and care and 5-05 it[place] examin[place]in[place] Medical immediatel immediatel Br anch y after y after delivery delivery BMI BMI Disease Active Univers 30.0-30.9, 30.0-30.9, 4-11 it y of adult adult 00:00: [place] [facility] 37 weeks 37 weeks Disease Active Unive rs gestation gestation 4-11 ity of of of 00:00: [place] 00 [facility] Branch Chlamydia Chlamydia Disease Active Overview: Univers infection infection -19 Formattin i ty of during during 00:00: g of this [place] 00 note [facility] might be Branch different from the [...] of high-risk high-risk 00:[place] [facility] with with Branch insufficie insufficie nt [...] 2-18 it y of adult adult 00:00: [place] [facility] Allergies, Adverse Reactions, Alerts Allergy [...] INGREDI 01-02 ity of 00:00: [place] [facility] Social History Social Habit Start Date Stop Date Quantity Comments Source ASSERTION 2019-03-20 University of 00:00:00 [facility] Gender identity Universit y of [facility] Sexual orientation Univer sity of [facility] Alcohol intake 2023-04-03 2023-04-03 Ex-drinker University of 00:00:00 00:00:00 (finding) [facility] History of Social 2022-11-14 2022-11-14 Univers ity of function 00:00:00 00:00:00 [facility] Exposure to 2022-10-31 2022-11-10 Not sure [facility] SARS-CoV-2 (event) 00:00:00 12:18:00 [facility] Tobacco use and 2022-11-10 2022-11-10 Smokeless Universit y of exposure 00:00:00 00:00:00 tobacco non-user [facility] Education 2019-11-22 2019-11-22 11 University of 00:00:00 00:00:00 [facility] Tobacco Comment 2013-06-10 2013-06-10 mom smokes Universit y of 00:00:00 00:00:00 outside [facility] Sex Assigned At [birth year] Universit y of 00:00:00 00:00:00 [facility] Smoking Status Start Date Stop Date Source Never smoked tobacco [facility] [place] [facility] Medications Ordered Filled Start Stop Current Ordering Indication Dosage Frequency Signature Comments Components Source Medication Medication Date Date Medication? Clinician (SIG) Name Name doxycycline No [id number] 100mg Take 1 Univers monohydrate 4-01 14-14 capsule by i ty of 100 mg 00:00: 04:59 mouth in [place] capsule 00 :00 the Medical morning Branch and 1 capsule in the evening. Do all this for 7 days. doxycycline No [id number] 100mg Take 1 Univers monohydrate 4-14 capsule by i ty of 100 mg 00:00: 04:59 mouth in [place] capsule 00 :00 the Medical morning Branch and 1 capsule in the evening. Do all this for 7 days. doxycycline No [id number] 100mg Take 1 Univers monohydrate 4-14 capsule by i ty of 100 mg 00:00: 04:59 mouth in [place] capsule 00 :00 the Medical morning [place] and 1 capsule in the evening. Do all this for 7 days. doxycycline No [id number] 100mg Take 1 Univers monohydrate 4-14 capsule by i ty of 100 mg 00:00: 04:59 mouth in [place] capsule 00 :00 the Medical morning [place] and 1 capsule in the evening. Do all this for 7 days. 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 Repeat dose at 0700 am on the morning of IUD insertion for cervical softening; not for abortive purposes. miSOPROStoL Yes [id number] Take 1 Univers 200 mcg 4-04 tablet, by ity of tablet 00:00: [facility] [place] [address] [facility] before IUD insertion procedure. Repeat dose at 0700 am on the morning of IUD insertion for cervical softening; not for abortive purposes. miSOPROStoL 2022- No [id number] Take 1 Univers 200 mcg 4-04 04-05 tablet, by ity o f tablet 00:00: 00:00 mouth, at [place] 00 :00 bedtime [facility] the night Branch before IUD insertion procedure. Repeat dose at 0700 am on the morning of IUD insertion for cervical softening; not for abortive purposes. miSOPROStoL 2022- No [id number] Take 1 Univers 200 mcg 4-04 04-05 tablet, by ity o f tablet 00:00: 00:00 mouth, at [place] 00 :00 bedtime [facility] the night Branch before IUD insertion procedure. Repeat dose at 0700 am on the morning of IUD insertion for cervical softening; not for abortive purposes. etonogestre 2019- No [id number] 68mg Univers l 5-27 05-27 ity of (NEXPLANON) 16:00: 14:55 [place] implant 68 00 :00 Medical mg Branch etonogestre 2019- No [id number] 68mg 68 mg, Univers l 5-27 05-27 Subdermal, ity of (NEXPLANON) 16:00: 14:55 ONCE NOW, [place] implant 68 00 :00 1 dose, Medica l mg Wed Branch 01/07/20 at 1100, Routine
Use approved by: VOCATIONAL REHAB CONSULTANT etonogestre 2019- No [id number] 68mg Univers l 01-06 ity of (NEXPLANON) 16:00: 14:55 [place] implant 68 00 :00 Medical mg Branch etonogestre 2019- No [id number] 68mg 68 mg, Univers l 01-06 Subdermal, ity of (NEXPLANON) 16:00: 14:55 ONCE NOW, [place] implant 68 00 :00 1 dose, Medica l mg [facility] 01/07/20 at 1100, Routine
Use approved by: VOCATIONAL REHAB CONSULTANT lisdexamfet 2019- No 50mg Take 50 mg Univers amine 11-22 by mouth ity of (VYVANSE) 12:42: 00:00 every [place] 50 mg 10 :00 morning. Medical capsule [place] ARIPiprazol 2019- No 2mg Take 2 mg Univers e (ABILIFY) 11-2212 by mouth ity of 2 mg tablet 12:42: 00:00 daily. [place] as 10 :00 Medical [place] human Yes .5mL 0.5 mL, Univers papillomav 11-22 Intramuscu ity of vac,9-migel(P 12:26: lar, [place] F) 12 ONCE-PRIOR Medical (GARDASIL-9 TO [place] ) syringe DISCHARGE, 0.5 mL 1 dose, Starting 11/23/19 at 0726, Until Discontinu ed, Routine, Give vaccine prior to discharge varicella 2019- No .5mL 0.5 mL, Univ ers virus 11-2213 Subcutaneo ity of vaccine 12:26: 16:35 us, [place] live 12 :00 ONCE-PRIOR Medical (VARIVAX TO [place] (PF)) DISCHARGE, injection 1 dose, 0.5 mL [...] Starting Medica l 400 mg/5 mL [facility] Branch suspension 11/22/19 at 30 mL 2256, Until Discontinu ed, Routine, Constipati on naloxone 2019-0 2020- No .4mg 0.4 mg, Unive rs (NARCAN) 412 04-14 Slow IV ity of injection 00:13: 00:12 Push, PRN [place] 0.4 mg 34 :34 - SEE Medical INSTRUCTIO Branch NS, Starting 11/22/19 at 1913, Until 11/24/19 at 1912, Routine, Analgesia Recovery 2019-0 Yes [id number] 1{tbl} Take 1 Univers vitamin 4-12 tablet by ity of w/FA tablet 00:00: mouth [place] 00 daily. Medical Branch docusate 2020-0 Yes [id number] 240mg Take 1 U nivers calcium 240 4-12 capsule by it y of mg capsule 00:00: mouth once [place] 00 daily as Medical needed for Branch Constipati on. ferrous 2020-0 Yes [id number] 325mg Take 1 Un dustin sulfate 325 4-12 tablet by ity of mg (65 mg 00:00: mouth 2 [place] iron) 00 (two) Medical tablet times Branch daily. ibuprofen 2020-0 Yes [id number] 600mg Take 1 Univers 600 mg 4-12 tablet by ity of tablet 00:00: mouth [place] 00 every 6 Medical (six) Branch hours as needed (Pain). Take with food or milk. 2020-0 Yes [id number] 1{tbl} Take 1 Univers vitamin 4-12 tablet by ity of w/FA tablet 00:00: mouth [place] 00 daily. Medical Branch docusate 2020-0 Yes [id number] 240mg Take 1 U nivers calcium 240 4-12 capsule by it y of mg capsule 00:00: mouth once [place] 00 daily as Medical needed for Branch Constipati on. ferrous 2020-0 Yes [id number] 325mg Take 1 Un dustin sulfate 325 4-12 tablet by ity of mg (65 mg 00:00: mouth 2 [place] iron) 00 (two) Medical tablet times Branch daily. ibuprofen 2020-0 Yes [id number] 600mg Take 1 Univers 600 mg 4-12 tablet by ity of tablet 00:00: mouth [place] 00 every 6 Medical (six) Branch hours as needed (Pain). Take with food or milk. 2020-0 Yes [id number] 1{tbl} Take 1 Univers vitamin 4-12 tablet by ity of w/FA tablet 00:00: mouth [place] 00 daily. Medical Branch docusate 2020-0 Yes [id number] 240mg Take 1 U nivers calcium 240 4-12 capsule by it y of mg capsule 00:00: mouth once [place] 00 daily as Medical needed for Branch Constipati on. ferrous 2020-0 Yes [id number] 325mg Take 1 Un dutsin sulfate 325 4-12 tablet by ity of mg (65 mg 00:00: mouth 2 [place] iron) 00 (two) Medical tablet times Branch daily. ibuprofen 2020-0 Yes [id number] 600mg Take 1 Univers 600 mg 4-12 tablet by ity of tablet 00:00: mouth [place] 00 every 6 Medical (six) Branch hours as needed (Pain). Take with food or milk. 2020-0 Yes [id number] 1{tbl} Take 1 Univers vitamin 4-12 tablet by ity of w/FA tablet 00:00: mouth [place] 00 daily. Medical Branch docusate 2020-0 Yes [id number] 240mg Take 1 U nivers calcium 240 4-12 capsule by it y of mg capsule 00:00: mouth once [place] 00 daily as Medical needed for Branch Constipati on. ferrous 2020-0 Yes [id number] 325mg Take 1 Un dustin sulfate 325 4-12 tablet by ity of mg (65 mg 00:00: mouth 2 [place] iron) 00 (two) Medical tablet times Branch daily. ibuprofen 2020-0 Yes [id number] 600mg Take 1 Univers 600 mg 4-12 tablet by ity of tablet 00:00: mouth [place] 00 every 6 Medical (six) Branch hours as needed (Pain). Take with food or milk. 2020-0 Yes [id number] 1{tbl} Take 1 Univers vitamin 4-12 tablet by ity of w/FA tablet 00:00: mouth [place] 00 daily. Medical Branch docusate 2020-0 Yes [id number] 240mg Take 1 U nivers calcium 240 4-12 capsule by it y of mg capsule 00:00: mouth once [place] 00 daily as Medical needed for Branch Constipati on. ferrous 2020-0 Yes [id number] 325mg Take 1 Un dustin sulfate 325 4-12 tablet by ity of mg (65 mg 00:00: mouth 2 [place] iron) 00 (two) Medical tablet times Branch daily. ibuprofen 2020-0 Yes [id number] 600mg Take 1 Univers 600 mg 4-12 tablet by ity of tablet 00:00: mouth [place] 00 every 6 Medical (six) Branch hours as needed (Pain). Take with food or milk. 2020-0 Yes [id number] 1{tbl} Take 1 Univers vitamin 4-12 tablet by ity of w/FA tablet 00:00: mouth [place] 00 daily. Medical Branch docusate 2020-0 Yes [id number] 240mg Take 1 U nivers calcium 240 4-12 capsule by it y of mg capsule 00:00: mouth once [place] 00 daily as Medical needed for Branch Constipati on. ferrous 2020-0 Yes [id number] 325mg Take 1 Un dustin sulfate 325 4-12 tablet by ity of mg (65 mg 00:00: mouth 2 [place] iron) 00 (two) Medical tablet times Branch daily. ibuprofen 2020-0 Yes [id number] 600mg Take 1 Univers 600 mg 4-12 tablet by ity of tablet 00:00: mouth [place] 00 every 6 Medical (six) Branch hours as needed (Pain). Take with food or milk. 2020-0 Yes [id number] 1{tbl} Take 1 Univers vitamin 4-12 tablet by ity of w/FA tablet 00:00: mouth [place] 00 daily. Medical Branch docusate 2020-0 Yes [id number] 240mg Take 1 U nivers calcium 240 4-12 capsule by it y of mg capsule 00:00: mouth once [place] 00 daily as Medical needed for Branch Constipati on. ferrous 2020-0 Yes [id number] 325mg Take 1 Un dustin sulfate 325 4-12 tablet by ity of mg (65 mg 00:00: mouth 2 [place] iron) 00 (two) Medical tablet times Branch daily. ibuprofen 2020-0 Yes [id number] 600mg Take 1 Univers 600 mg 4-12 tablet by ity of tablet 00:00: mouth [place] 00 every 6 Medical (six) Branch hours as needed (Pain). Take with food or milk. 2020-0 Yes [id number] 1{tbl} Take 1 Univers vitamin 4-12 tablet by ity of w/FA tablet 00:00: mouth [place] 00 daily. Medical Branch docusate 2020-0 Yes [id number] 240mg Take 1 U nivers calcium 240 4-12 capsule by it y of mg capsule 00:00: mouth once [place] 00 daily as Medical needed for Branch Constipati on. ferrous 2020-0 Yes [id number] 325mg Take 1 Un dustin sulfate 325 4-12 tablet by ity of mg (65 mg 00:00: mouth 2 [place] iron) 00 (two) Medical tablet times Branch daily. ibuprofen 2020-0 Yes [id number] 600mg Take 1 Univers 600 mg 4-12 tablet by ity of tablet 00:00: mouth [place] 00 every 6 Medical (six) Branch hours as needed (Pain). Take with food or milk. 2020-0 Yes [id number] 1{tbl} Take 1 Univers vitamin 4-12 tablet by ity of w/FA tablet 00:00: mouth [place] 00 daily. Medical Branch docusate 2020-0 Yes [id number] 240mg Take 1 U nivers calcium 240 4-12 capsule by it y of mg capsule 00:00: mouth once [place] 00 daily as Medical needed for Branch Constipati on. ferrous 2020-0 Yes [id number] 325mg Take 1 Un dustin sulfate 325 4-12 tablet by ity of mg (65 mg 00:00: mouth 2 [place] iron) 00 (two) Medical tablet times Branch daily. ibuprofen 2020-0 Yes [id number] 600mg Take 1 Univers 600 mg 4-12 tablet by ity of tablet 00:00: mouth [place] 00 every 6 Medical (six) Branch hours as needed (Pain). Take with food or milk. 2020-0 Yes [id number] 1{tbl} Take 1 Univers vitamin 4-12 tablet by ity of w/FA tablet 00:00: mouth [place] 00 daily. Medical Branch docusate 2020-0 Yes [id number] 240mg Take 1 U nivers calcium 240 4-12 capsule by it y of mg capsule 00:00: mouth once [place] 00 daily as Medical needed for Branch Constipati on. ferrous 2020-0 Yes [id number] 325mg Take 1 Un dustin sulfate 325 4-12 tablet by ity of mg (65 mg 00:00: mouth 2 [place] iron) 00 (two) Medical tablet times Branch daily. ibuprofen 2020-0 Yes [id number] 600mg Take 1 Univers 600 mg 4-12 tablet by ity of tablet 00:00: mouth [place] 00 every 6 Medical (six) Branch hours as needed (Pain). Take with food or milk. 2020-0 Yes [id number] 1{tbl} Take 1 Univers vitamin 4-12 tablet by ity of w/FA tablet 00:00: mouth [place] 00 daily. Medical Branch docusate 2020-0 Yes [id number] 240mg Take 1 U nivers calcium 240 4-12 capsule by it y of mg capsule 00:00: mouth once [place] 00 daily as Medical needed for Branch Constipati on. ferrous 2020-0 Yes [id number] 325mg Take 1 Un dustin sulfate 325 4-12 tablet by ity of mg (65 mg 00:00: mouth 2 [place] iron) 00 (two) Medical tablet times Branch daily. ibuprofen 2020-0 Yes [id number] 600mg Take 1 Univers 600 mg 4-12 tablet by ity of tablet 00:00: mouth [place] 00 every 6 Medical (six) Branch hours as needed (Pain). Take with food or milk. 2020-0 Yes [id number] 1{tbl} Take 1 Univers vitamin 4-12 tablet by ity of w/FA tablet 00:00: mouth [place] 00 daily. Medical Branch docusate 2020-0 Yes [id number] 240mg Take 1 U nivers calcium 240 4-12 capsule by it y of mg capsule 00:00: mouth once [place] 00 daily as Medical needed for Branch Constipati on. ferrous 2020-0 Yes [id number] 325mg Take 1 Un dustin sulfate 325 4-12 tablet by ity of mg (65 mg 00:00: mouth 2 [place] iron) 00 (two) Medical tablet times Branch daily. ibuprofen 2020-0 Yes [id number] 600mg Take 1 Univers 600 mg 4-12 tablet by ity of tablet 00:00: mouth [place] 00 every 6 Medical (six) Branch hours as needed (Pain). Take with food or milk. 2020-0 Yes [id number] 1{tbl} Take 1 Univers vitamin 4-12 tablet by ity of w/FA tablet 00:00: mouth [place] 00 daily. Medical Branch docusate 2020-0 Yes [id number] 240mg Take 1 U nivers calcium 240 4-12 capsule by it y of mg capsule 00:00: mouth once [place] 00 daily as Medical needed for Branch Constipati on. ferrous 2020-0 Yes [id number] 325mg Take 1 Un dustin sulfate 325 4-12 tablet by ity of mg (65 mg 00:00: mouth 2 [place] iron) 00 (two) Medical tablet times Branch daily. ibuprofen 2020-0 Yes [id number] 600mg Take 1 Univers 600 mg 4-12 tablet by ity of tablet 00:00: mouth [place] 00 every 6 Medical (six) Branch hours as needed (Pain). Take with food or milk. 2020-0 Yes [id number] 1{tbl} Take 1 Univers vitamin 4-12 tablet by ity of w/FA tablet 00:00: mouth [place] 00 daily. Medical Branch docusate 2020-0 Yes [id number] 240mg Take 1 U nivers calcium 240 4-12 capsule by it y of mg capsule 00:00: mouth once [place] 00 daily as Medical needed for Branch Constipati on. ferrous 2020-0 Yes [id number] 325mg Take 1 Un dustin sulfate 325 4-12 tablet by ity of mg (65 mg 00:00: mouth 2 [place] iron) 00 (two) Medical tablet times Branch daily. ibuprofen 2020-0 Yes [id number] 600mg Take 1 Univers 600 mg 4-12 tablet by ity of tablet 00:00: mouth [place] 00 every 6 Medical (six) Branch hours as needed (Pain). Take with food or milk. 2020-0 Yes [id number] 1{tbl} Take 1 Univers vitamin 4-12 tablet by ity of w/FA tablet 00:00: mouth [place] 00 daily. Medical Branch docusate 2020-0 Yes [id number] 240mg Take 1 U nivers calcium 240 4-12 capsule by it y of mg capsule 00:00: mouth once [place] 00 daily as Medical needed for Branch Constipati on. ferrous 2020-0 Yes [id number] 325mg Take 1 Un dustin sulfate 325 4-12 tablet by ity of mg (65 mg 00:00: mouth 2 [place] iron) 00 (two) Medical tablet times Branch daily. ibuprofen 2020-0 Yes [id number] 600mg Take 1 Univers 600 mg 4-12 tablet by ity of tablet 00:00: mouth [place] 00 every 6 Medical (six) Branch hours as needed (Pain). Take with food or milk. 2020-0 Yes [id number] 1{tbl} Take 1 Univers vitamin 4-12 tablet by ity of w/FA tablet 00:00: mouth [place] 00 daily. Medical Branch docusate 2020-0 Yes [id number] 240mg Take 1 U nivers calcium 240 4-12 capsule by it y of mg capsule 00:00: mouth once [place] 00 daily as Medical needed for Branch Constipati on. ferrous 2020-0 Yes [id number] 325mg Take 1 Un dustin sulfate 325 4-12 tablet by ity of mg (65 mg 00:00: mouth 2 [place] iron) 00 (two) Medical tablet times Branch daily. ibuprofen 2020-0 Yes [id number] 600mg Take 1 Univers 600 mg 4-12 tablet by ity of tablet 00:00: mouth [place] 00 every 6 Medical (six) Branch hours as needed (Pain). Take with food or milk. 2020-0 Yes [id number] 1{tbl} Take 1 Univers vitamin 4-12 tablet by ity of w/FA tablet 00:00: mouth [place] 00 daily. Medical Branch docusate 2020-0 Yes [id number] 240mg Take 1 U nivers calcium 240 4-12 capsule by it y of mg capsule 00:00: mouth once [place] 00 daily as Medical needed for Branch Constipati on. ferrous 2020-0 Yes [id number] 325mg Take 1 Un dustin sulfate 325 4-12 tablet by ity of mg (65 mg 00:00: mouth 2 [place] iron) 00 (two) Medical tablet times Branch daily. ibuprofen 2020-0 Yes [id number] 600mg Take 1 Univers 600 mg 4-12 tablet by ity of tablet 00:00: mouth [place] 00 every 6 Medical (six) Branch hours as needed (Pain). Take with food or milk. 2020-0 Yes [id number] 1{tbl} Take 1 Univers vitamin 4-12 tablet by ity of w/FA tablet 00:00: mouth [place] 00 daily. Medical Branch docusate 2020-0 Yes [id number] 240mg Take 1 U nivers calcium 240 4-12 capsule by it y of mg capsule 00:00: mouth once [place] 00 daily as Medical needed for Branch Constipati on. ferrous 2020-0 Yes [id number] 325mg Take 1 Un dustin sulfate 325 4-12 tablet by ity of mg (65 mg 00:00: mouth 2 [place] iron) 00 (two) Medical tablet times Branch daily. ibuprofen 2020-0 Yes [id number] 600mg Take 1 Univers 600 mg 4-12 tablet by ity of tablet 00:00: mouth [place] 00 every 6 Medical (six) Branch hours as needed (Pain). Take with food or milk. 2020-0 Yes [id number] 1{tbl} Take 1 Univers vitamin 4-12 tablet by ity of w/FA tablet 00:00: mouth [place] 00 daily. Medical Branch docusate 2020-0 Yes [id number] 240mg Take 1 U nivers calcium 240 4-12 capsule by it y of mg capsule 00:00: mouth once [place] 00 daily as Medical needed for Branch Constipati on. ferrous 2020-0 Yes [id number] 325mg Take 1 Un dustin sulfate 325 4-12 tablet by ity of mg (65 mg 00:00: mouth 2 [place] iron) 00 (two) Medical tablet times Branch daily. ibuprofen 2020-0 Yes [id number] 600mg Take 1 Univers 600 mg 4-12 tablet by ity of tablet 00:00: mouth [place] 00 every 6 Medical (six) Branch hours as needed (Pain). Take with food or milk. 2020-0 Yes [id number] 1{tbl} Take 1 Univers vitamin 4-12 tablet by ity of w/FA tablet 00:00: mouth [place] 00 daily. Medical Branch docusate 2020-0 Yes [id number] 240mg Take 1 U nivers calcium 240 4-12 capsule by it y of mg capsule 00:00: mouth once [place] 00 daily as Medical needed for Branch Constipati on. ferrous 2020-0 Yes [id number] 325mg Take 1 Un dustin sulfate 325 4-12 tablet by ity of mg (65 mg 00:00: mouth 2 [place] iron) 00 (two) Medical tablet times Branch daily. ibuprofen 2020-0 Yes [id number] 600mg Take 1 Univers 600 mg 4-12 tablet by ity of tablet 00:00: mouth [place] 00 every 6 Medical (six) Branch hours as needed (Pain). Take with food or milk. 2019-0 Yes [id number] 1{tbl} Take 1 Univers vitamin 4-12 tablet by ity of w/FA tablet 00:00: mouth [place] 00 daily. Medical Branch docusate 2020-0 Yes [id number] 240mg Take 1 U nivers calcium 240 4-12 capsule by it y of mg capsule 00:00: mouth once [place] 00 daily as Medical needed for Branch Constipati on. ferrous 2020-0 Yes [id number] 325mg Take 1 Un dustin sulfate 325 4-12 tablet by ity of mg (65 mg 00:00: mouth 2 [place] iron) 00 (two) Medical tablet times Branch daily. ibuprofen 2020-0 Yes [id number] 600mg Take 1 Univers 600 mg 4-12 tablet by ity of tablet 00:00: mouth [place] 00 every 6 Medical (six) Branch hours as needed (Pain). Take with food or milk. HYDROcodone 0 2019- No [id number] 1{tbl} Take 1 Univers -acetaminop 4-12 04-20 tablet by it y of hen 5-325 00:00: 04:59 mouth [place] mg tablet 00 :00 every 6 Medical (six) Branch hours as needed (for pain) for up to 7 days. Do not exceed 3 grams of acetaminop hen in 24 hours. HYDROcodone 2019- No [id number] 1{tbl} Take 1 Univers -acetaminop 11-22 tablet [...] Surgical Prophylaxi s
Surgi ashley Prophylaxi s: VOCATIONAL REHAB CONSULTANT
Duration of therapy: within 24 hours of [...] [place] (RIGHT STEP 00 daily. Medica l [facility] Branch VITAMINS) 27 mg iron- 0.8 mg [...] [place] (RIGHT STEP 00 daily. Medica l [facility] Branch VITAMINS) 27 mg iron- 0.8 mg [...] 00:00: mouth [place] (RIGHT STEP 00 daily. [facility] V[facility]) 27 mg iron- 0.8 mg per tablet ferrous 2019-0 Yes 325mg Take 1 Univers sulfate 325 3-02 tablet by ity of mg (65 mg 00:00: mouth [place] iron) 00 daily. Medical tablet Branch Yes 1{tbl} Take 1 Unive rs Vit-Iron 3-02 tablet by ity of Fumarate-FA 00:00: mouth [place] (RIGHT STEP 00 daily. [facility] VIT[facility]) 27 mg iron- 0.8 mg per tablet ferrous 2019- Yes 325mg Take 1 Univers sulfate 325 3-02 tablet by ity of mg (65 mg 00:00: mouth [place] iron) 00 daily. Medical tablet Branch 2020- No 1{tbl} Take 1 Univ ers Vit-Iron 3-02 04-12 tablet by ity o f Fumarate-FA 00:00: 00:[place] (RIGHT STEP 00 :00 [facility]. [facility] VITAMINS) 27 mg iron- 0.8 [...] Therapy: Other (see Comments) azithromyci 2019- No [id number] 1000mg Take 2 Univers n 500 mg 2-19 02-20 tablets by ity of tablet 00:00[place] 05[place]59 [place] now for 1 Medical dose. Branch azithromyci 2020-0 2020- No [id number] 1000mg Take 2 Univers n 500 mg 2-19 02-20 tablets by ity of tablet 00:00: 05:59 [facility] now for 1 Medical dose. Branch ARIPiprazol 2019-0 Yes 2mg Take 2 mg U nivers e (ABILIFY) 2-18 by mouth ity of 2 mg tablet 19:58: daily. [place] [address] Medical Branch lisdexamfet 2019-0 Yes 50mg Take 50 mg Univers amine 2-18 by mouth ity of (VYVANSE) 19:58: every [place] 50 mg 26 morning. Medical capsule Branch ARIPiprazol 2019-0 Yes 2mg Take 2 mg U nivers e (ABILIFY) 2-18 by mouth ity of 2 mg tablet 19:58: daily. [place] [address] Medical Branch lisdexamfet 2019-0 Yes 50mg Take 50 mg Univers amine 2-18 by mouth ity of (VYVANSE) 19:58: every [place] 50 mg 26 morning. Medical capsule Branch ARIPiprazol 2019-0 Yes 2mg Take 2 mg U nivers e (ABILIFY) 2-18 by mouth ity of 2 mg tablet 19:58: daily. [address] Branch lisdexamfet 2019-0 Yes 50mg Take 50 mg Univers amine 2-18 by mouth ity of (VYVANSE) 19:58: every [place] 50 mg 26 morning. Medical capsule Branch ARIPiprazol 2019-0 Yes 2mg Take 2 mg U nivers e (ABILIFY) 2-18 by mouth ity of 2 mg tablet 19:58: daily. [place] [address] Medical Branch lisdexamfet 2019-0 Yes 50mg Take 50 mg Univers amine 2-18 by mouth ity of (VYVANSE) 19:58: every [place] 50 mg 26 morning. Medical capsule Branch ARIPiprazol 2019-0 Yes 2mg Take 2 mg U nivers e (ABILIFY) 2-18 by mouth ity of 2 mg tablet 19:58: daily. [place] [address] Medical Branch lisdexamfet 2020-0 Yes 50mg Take 50 mg Univers amine 2-18 by mouth ity of (VYVANSE) 19:58: every [place] 50 mg 26 morning. Medical capsule Branch ARIPiprazol 2020-0 Yes 2mg Take 2 mg U nivers e (ABILIFY) 2-18 by mouth ity of 2 mg tablet 19:58: daily. [place] [address] Medical Branch lisdexamfet 2020-0 Yes 50mg Take 50 mg Univers amine 2-18 by mouth ity of (VYVANSE) 19:58: every [place] 50 mg 26 morning. Medical capsule Branch ARIPiprazol 2020-0 Yes 2mg Take 2 mg U nivers e (ABILIFY) 2-18 by mouth ity of 2 mg tablet 19:58: daily. [place] [address] Medical Branch lisdexamfet 2020-0 Yes 50mg Take 50 mg Univers amine 2-18 by mouth ity of (VYVANSE) 19:58: every [place] 50 mg 26 morning. Medical capsule Branch ARIPiprazol 2020-0 Yes 2mg Take 2 mg U nivers e (ABILIFY) 2-18 by mouth ity of 2 mg tablet 19:58: daily. [place] [address] Medical Branch lisdexamfet 2020-0 Yes 50mg Take 50 mg Univers amine 2-18 by mouth ity of (VYVANSE) 19:58: every [place] 50 mg 26 morning. Medical capsule Branch ARIPiprazol 2020-0 Yes 2mg Take 2 mg U nivers e (ABILIFY) 2-18 by mouth ity of 2 mg tablet 19:58: daily. [place] [address] Medical Branch lisdexamfet 2020-0 Yes 50mg Take 50 mg Univers amine 2-18 by mouth ity of (VYVANSE) 19:58: every [place] 50 mg 26 morning. Medical capsule Branch ARIPiprazol 2020-0 Yes 2mg Take 2 mg U nivers e (ABILIFY) 2-18 by mouth ity of 2 mg tablet 19:58: daily. [address] Branch lisdexamfet 2020-0 Yes 50mg Take 50 mg Univers amine 2-18 by mouth ity of (VYVANSE) 19:58: every [place] 50 mg 26 morning. Medical capsule Branch ARIPiprazol 2020-0 Yes 2mg Take 2 mg U nivers e (ABILIFY) 2-18 by mouth ity of 2 mg tablet 19:58: daily. [place] [address] Medical Branch lisdexamfet 2020-0 Yes 50mg Take 50 mg Univers amine 2-18 by mouth ity of (VYVANSE) 19:58: every [place] 50 mg 26 morning. Medical capsule Branch ARIPiprazol 2020-0 Yes 2mg Take 2 mg U nivers e (ABILIFY) 2-18 by mouth ity of 2 mg tablet 19:58: daily. [place] [address] Medical Branch lisdexamfet 2020-0 Yes 50mg Take 50 mg Univers amine 2-18 by mouth ity of (VYVANSE) 19:58: every [place] 50 mg 26 morning. Medical capsule Branch ARIPiprazol 2020-0 Yes 2mg Take 2 mg U nivers e (ABILIFY) 2-18 by mouth ity of 2 mg tablet 19:58: daily. [address] Branch lisdexamfet 2020-0 Yes 50mg Take 50 mg Univers amine 2-18 by mouth ity of (VYVANSE) 19:58: every [place] 50 mg 26 morning. Medical capsule Branch ARIPiprazol 2020-0 Yes 2mg Take 2 mg U nivers e (ABILIFY) 2-18 by mouth ity of 2 mg tablet 19:58: daily. [address] Branch lisdexamfet 2020-0 Yes 50mg Take 50 mg Univers amine 2-18 by mouth ity of (VYVANSE) 19:58: every [place] 50 mg 26 morning. Medical capsule Branch ARIPiprazol 2020-0 Yes 2mg Take 2 mg U nivers e (ABILIFY) 2-18 by mouth ity of 2 mg tablet 19:58: daily. [address] Branch lisdexamfet 2020-0 Yes 50mg Take [...] ity of 2 mg tablet 19:58: daily. [address] Branch lisdexamfet 2019-0 Yes 50mg Take 50 mg Univers amine 2-18 by mouth ity of (VYVANSE) 19:58: every [place] 50 mg 26 morning. Medical capsule Branch ARIPiprazol 2019-0 Yes 2mg Take 2 mg U nivers e (ABILIFY) 2-18 by mouth ity of 2 mg tablet 19:58: daily. [address] Branch lisdexamfet 0 Yes 50mg Take 50 mg Univers amine 2-18 by mouth ity of (VYVANSE) 19:58: every [place] 50 mg 26 morning. Medical capsule Branch ARIPiprazol 2019-0 Yes 2mg Take 2 mg U nivers e (ABILIFY) 2-18 by mouth ity of 2 mg tablet 19:58: daily. [address] Branch lisdexamfet 0 Yes 50mg Take 50 mg Univers amine 2-18 by mouth ity of (VYVANSE) 19:58: every [place] 50 mg 26 morning. Medical capsule Branch ARIPiprazol 2019-0 Yes 2mg Take 2 mg U nivers e (ABILIFY) 2-18 by mouth ity of 2 mg tablet 19:58: daily. [address] Branch lisdexamfet 0 Yes 50mg Take [...] ity of 2 mg tablet 14:18: daily. [address] Branch Somatropin Yes [id number] 3mg inject 3 Univers (NORDITROPI 5-05 mg under ity of N FLEXPRO) 00:00: the skin [place] 15 mg/1.5 00 daily. Medical mL (10 Branch mg/mL) PnIj Somatropin Yes [id number] 3mg inject 3 Univers (NORDITROPI 5-05 mg under ity of N FLEXPRO) 00:00: the skin [place] 15 mg/1.5 00 daily. Medical mL (10 Branch mg/mL) PnIj Somatropin Yes [id number] 3mg inject 3 Univers (NORDITROPI 5-05 mg under ity of N FLEXPRO) 00:00: the skin [place] 15 mg/1.5 00 daily. Medical mL (10 Branch mg/mL) PnIj Somatropin Yes [id number] 3mg inject 3 Univers (NORDITROPI 5-05 mg under ity of N FLEXPRO) 00:00: the skin [place] 15 mg/1.5 00 daily. Medical mL (10 Branch mg/mL) PnIj Somatropin Yes [id number] 3mg inject 3 Univers (NORDITROPI 5-05 mg under ity of N FLEXPRO) 00:00: the skin [place] 15 mg/1.5 00 daily. Medical mL (10 Branch mg/mL) PnIj Somatropin Yes [id number] 3mg inject 3 Univers (NORDITROPI 5-05 mg under ity of N FLEXPRO) 00:00: the skin [place] 15 mg/1.5 00 daily. Medical mL (10 Branch mg/mL) PnIj Somatropin Yes [id number] 3mg inject 3 Univers (NORDITROPI 5-05 mg under ity of N FLEXPRO) 00:00: the skin [place] 15 mg/1.5 00 daily. Medical mL (10 Branch mg/mL) PnIj Somatropin Yes [id number] 3mg inject 3 Univers (NORDITROPI 5-05 mg under ity of N FLEXPRO) 00:00: the skin [place] 15 mg/1.5 00 daily. Medical mL (10 Branch mg/mL) PnIj Somatropin Yes [id number] 3mg inject 3 Univers (NORDITROPI 5-05 mg under ity of N FLEXPRO) 00:00: the skin [place] 15 mg/1.5 00 daily. Medical mL (10 Branch mg/mL) PnIj Somatropin 2015-0 Yes [id number] 3mg inject 3 Univers (NORDITROPI 5-05 mg under ity of N FLEXPRO) 00:00: the skin [place] 15 mg/1.5 00 daily. Medical mL (10 Branch mg/mL) PnIj Somatropin 2014-0 Yes [id number] 3mg inject 3 Univers (NORDITROPI 5-05 mg under ity of N FLEXPRO) 00:00: the [place] 15 mg/1.5 00 daily. Medical mL (10 Branch mg/mL) PnIj Somatropin 2014-0 Yes [id number] 3mg inject 3 Univers (NORDITROPI 5-05 mg under ity of N FLEXPRO) 00:00: the [place] 15 mg/1.5 00 daily. Medical mL (10 Branch mg/mL) PnIj Somatropin 2014-0 Yes [id number] 3mg inject 3 Univers (NORDITROPI 5-05 mg under ity of N FLEXPRO) 00:00: the skin [place] 15 mg/1.5 00 daily. Medical mL (10 Branch mg/mL) PnIj Somatropin 2014-0 Yes [id number] 3mg inject 3 Univers (NORDITROPI 5-05 mg under ity of N FLEXPRO) 00:00: the skin [place] 15 mg/1.5 00 daily. Medical mL (10 Branch mg/mL) PnIj Somatropin 2015-0 Yes [id number] 3mg inject 3 Univers (NORDITROPI 5-05 mg under ity of N FLEXPRO) 00:00: the skin [place] 15 mg/1.5 00 daily. Medical mL (10 Branch mg/mL) PnIj Somatropin 2015-0 Yes [id number] 3mg inject 3 Univers (NORDITROPI 5-05 mg under ity of N FLEXPRO) 00:00: the skin [place] 15 mg/1.5 00 daily. Medical mL (10 Branch mg/mL) PnIj Somatropin 2015-0 Yes [id number] 3mg inject 3 Univers (NORDITROPI 5-05 mg under ity of N FLEXPRO) 00:00: the skin [place] 15 mg/1.5 00 daily. Medical mL (10 Branch mg/mL) PnIj Somatropin 2015-0 Yes [id number] 3mg inject 3 Univers (NORDITROPI 5-05 mg under ity of N FLEXPRO) 00:00: the skin [place] 15 mg/1.5 00 daily. Medical mL (10 Branch mg/mL) PnIj Somatropin Yes [id number] 3mg inject 3 Univers (NORDITROPI 5-05 mg under ity of N FLEXPRO) 00:00: the skin [place] 15 mg/1.5 00 daily. Medical mL (10 Branch mg/mL) PnIj Somatropin Yes [id number] 3mg inject 3 Univers (NORDITROPI 5-05 mg under ity of N FLEXPRO) 00:00: the skin [place] 15 mg/1.5 00 daily. Medical mL (10 Branch mg/mL) PnIj Somatropin Yes [id number] 3mg inject 3 Univers (NORDITROPI 5-05 mg under ity of N FLEXPRO) 00:00: the skin [place] 15 mg/1.5 00 daily. Medical mL (10 Branch mg/mL) PnIj Somatropin 2020- No [id number] 3mg inject 3 Univers (NORDITROPI 5-05 04-12 [...] y of Vaccine Quad .5 mL 00:00:00 [facility] 6+ MO [place] Tdap 2019-09-30 Completed University of 00:00:00 [facility] Influenza Virus 2019-09-30 Completed Universit y of Vaccine Quad .5 mL 00:00:00 [facility] IM 6+ MO Branch Tdap 2019-09-30 Completed University of 00:00:00 [facility] Influenza Virus 2019-09-30 Completed Universit y of Vaccine Quad .5 mL 00:00:00 [facility] IM 6+ MO Branch Tdap 2019-09-30 Completed University of 00:00:00 [facility] Influenza Virus 2019-09-30 Completed Universit y of Vaccine Quad .5 mL 00:00:00 [facility] IM 6+ MO [place] Tdap 2019-09-30 Completed University of 00:00:00 [facility] Influenza Virus 2019-09-30 Completed Universit y of Vaccine Quad .5 mL 00:00:00 [facility] IM 6+ MO [place] Tdap 2019-09-30 Completed University of 00:00:00 [facility] Influenza Virus 2019-09-30 Completed Universit y of Vaccine Quad .5 mL 00:00:00 [place] [facility] 6+ MO Branch Tdap 2019-09-30 Completed University of 00:00:00 [facility] Influenza Virus 2019-09-30 Completed Universit y of Vaccine Quad .5 mL 00:00:00 [place] [facility] 6+ MO Branch Tdap 2019-09-30 Completed University of 00:00:00 [facility] Influenza Virus 2019-09-30 Completed Universit y of Vaccine Quad .5 mL 00:00:00 [place] [facility] 6+ MO Branch Tdap 2019-09-30 Completed University of 00:00:00 [facility] Influenza Virus 2019-09-30 Completed Universit y of Vaccine Quad .5 mL 00:00:00 [facility] 6+ MO Branch Tdap 2019-09-30 Completed University of 00:00:00 [facility] Influenza Virus 2019-09-30 Completed Universit y of Vaccine Quad .5 mL 00:00:00 [facility] 6+ MO Branch Tdap 2019-09-30 Completed University of 00:00:00 [facility] Influenza Virus 2019-09-30 Completed Universit y of Vaccine Quad .5 mL 00:00:00 [facility] 6+ MO Branch Tdap 2019-09-30 Completed University of 00:00:00 [facility] Influenza Virus 2019-09-30 Completed Universit y of Vaccine Quad .5 mL 00:00:00 [facility] 6+ MO Branch Tdap 2019-09-30 Completed University of 00:00:00 [facility] Influenza Virus 2019-09-30 Completed Universit y of Vaccine Quad .5 mL 00:00:00 [facility] 6+ MO Branch Tdap 2019-09-30 Completed University of 00:00:00 [facility] Influenza Virus 2019-09-30 Completed Universit y of Vaccine Quad .5 mL 00:00:00 [facility] 6+ MO Branch Tdap 2019-09-30 Completed University of 00:00:00 [facility] Influenza Virus 2019-09-30 Completed Universit y of Vaccine Quad .5 mL 00:00:00 [place] [facility] 6+ MO Branch Tdap 2019-09-30 Completed University of 00:00:00 [facility] Influenza Virus 2019-09-30 Completed Universit y of Vaccine Quad .5 mL 00:00:00 [facility] 6+ MO Branch Tdap 2019-09-30 Completed University of 00:00:00 [facility] Influenza Virus 2019-09-30 Completed Universit y of Vaccine Quad .5 mL 00:00:00 [place] [facility] 6+ MO Branch Tdap 2019-09-30 Completed University of 00:00:00 [facility] Influenza Virus 2019-09-30 Completed Universit y of Vaccine Quad .5 mL 00:00:00 [place] [facility] 6+ MO Branch Tdap 2019-09-30 Completed University of 00:00:00 [facility] Influenza Virus 2019-09-30 Completed Universit y of Vaccine Quad .5 mL 00:00:00 [place] [facility] 6+ MO Branch Tdap 2019-09-30 Completed University of 00:00:00 [facility] Influenza Virus 2019-09-30 Completed Universit y of Vaccine Quad .5 mL 00:00:00 [facility] 6+ MO Branch Tdap 2019-09-30 Completed University of 00:00:00 [facility] Influenza Virus 2019-09-30 Completed Universit y of Vaccine Quad .5 mL 00:00:00 [facility] 6+ MO Branch Tdap 2019-09-30 Completed University of 00:00:00 [facility] Influenza Virus 2019-09-30 Completed Universit y of Vaccine Quad .5 mL 00:00:00 [facility] 6+ MO Branch Tdap 2019-09-30 Completed University of 00:00:00 [facility] Influenza Virus 2019-09-30 Completed Universit y of Vaccine Quad .5 mL 00:00:00 [facility] 6+ MO Branch TDAP 2019-09-30 Completed University of 00:00:00 [facility] Influenza Virus 2019-09-30 Completed Universit y of Vaccine Quad .5 mL 00:00:00 [facility] 6+ MO Branch TDAP 2019-09-30 Completed University of 00:00:00 [facility] Influenza Virus 2019-09-30 Completed Universit y of Vaccine Quad .5 mL 00:00:00 [place] [facility] 6+ MO Branch TDAP 2019-09-30 Completed University of 00:00:00 [facility] Influenza Virus 2019-09-30 Completed Universit y of Vaccine Quad .5 mL 00:00:00 [place] [facility] 6+ MO Branch TDAP 2019-09-30 Completed University of 00:00:00 [facility] Influenza Virus 2019-09-30 Completed Universit y of Vaccine Quad .5 mL 00:00:00 [place] [facility] 6+ MO Branch TDAP 2019-09-30 Completed University of 00:00:00 [facility] Influenza Virus 2019-09-30 Completed Universit y of Vaccine Quad .5 mL 00:00:00 [place] [facility] 6+ MO Branch TDAP 2019-09-30 Completed University of 00:00:00 [facility] Influenza Virus 2019-09-30 Completed Universit y of Vaccine Quad .5 mL 00:00:00 [place] [facility] 6+ MO Branch Influenza Virus 2019-09-30 Completed Universit y of Vaccine Quad .5 mL 00:00:00 [facility] 6+ MO Branch TDAP 2019-09-30 Completed University of 00:00:00 [facility] Tdap 2019-09-30 Completed University of 00:00:00 [facility] Influenza Virus 2019-09-30 Completed Universit y of Vaccine Quad .5 mL 00:00:00 [facility] 6+ MO Branch TDAP 2019-09-30 Completed University of 00:00:00 [facility] Influenza Virus 2019-09-30 Completed Universit y of Vaccine Quad .5 mL 00:00:00 [facility] 6+ MO Branch TDAP 2019-09-30 Completed University of 00:00:00 [facility] Influenza Virus 2019-09-30 Completed Universit y of Vaccine Quad .5 mL 00:00:00 [facility] 6+ MO Branch TDAP 2019-09-30 Completed University of 00:00:00 [facility] Influenza Virus 2019-09-30 Completed Universit y of Vaccine Quad .5 mL 00:00:00 [facility] 6+ MO Branch TDAP 2019-09-30 Completed University of 00:00:00 [facility] Influenza Virus 2019-09-30 Completed Universit y of Vaccine Quad .5 mL 00:00:00 [facility] 6+ MO Branch TDAP 2019-09-30 Completed University of 00:00:00 [facility] Influenza Virus 2019-09-30 Completed Universit y of Vaccine Quad .5 mL 00:00:00 [place] [facility] 6+ MO Branch TDAP 2019-09-30 Completed University of 00:00:00 [facility] Influenza Virus 2019-09-30 Completed Universit y of Vaccine Quad .5 mL 00:00:00 [facility] 6+ MO Branch Tdap 2019-09-30 Completed University of 00:00:00 [facility] Influenza Virus 2019-09-30 Completed Universit y of Vaccine Quad .5 mL 00:00:00 [place] [facility] IM 6+ MO Branch TDAP 2019-09-30 Completed University of 00:00:00 [facility] Influenza Virus 2019-09-30 Completed Universit y of Vaccine Quad .5 mL 00:00:00 [place] [facility] IM 6+ MO Branch TDAP 2019-09-30 Completed University of 00:00:00 [facility] Influenza Virus 2019-09-30 Completed Universit y of Vaccine Quad .5 mL 00:00:00 [facility] IM 6+ MO Branch Tdap 2019-09-30 Completed University of 00:00:00 [facility] Influenza Virus 2019-09-30 Completed Universit y of Vaccine Quad .5 mL 00:00:00 [facility] IM 6+ MO Branch Tdap 2019-09-30 Completed University 00:00:00 [facility] Vital Signs Vital Name Observation Time Observation Value Comments Source Systolic blood 2023-03-29 21:32:00 108 mm[Hg] Univer sity of pressure [facility] Diastolic blood 2023-03-29 21:32:00 70 mm[Hg] Unive rsity of pressure [facility] Heart rate 2023-03-29 21:32:00 73 /min Universi ty of [facility] Respiratory rate 2023-03-29 21:32:00 18 /min Univ ersity [facility] Body height 2023-03-29 21:32:00 152.4 cm Universi ty [facility] [place] [facility] Body weight 2023-03-29 21:32:00 69.4 kg Universi ty of [facility] BMI 2023-03-29 21:32:00 29.88 kg/m2 Universi ty [facility] [place] [facility] Systolic blood 2022-11-15 19:38:00 109 mm[Hg] Univer sity of pressure [facility] Diastolic blood 2022-11-15 19:38:00 70 mm[Hg] Unive rsity of pressure [facility] Heart rate 2022-11-15 19:38:00 87 /min Universi ty of [facility] Respiratory rate 2022-11-15 19:38:00 16 /min Univ ersity of [facility] Body height 2022-11-15 19:38:00 152.4 cm Universi ty [facility] [place] [facility] Body weight 2022-11-15 19:38:00 69.854 kg Universi ty [facility] [place] [facility] BMI 2022-11-15 19:38:00 30.08 kg/m2 Universi ty [facility] [place] [facility] Oxygen saturation in 2022-11-15 19:38:00 98 /min University of Arterial blood by [place] [employer] [facility] oximetry Branch Systolic blood 2022-11-14 19:57:00 104 mm[Hg] Univer sity of pressure [place] [facility] Diastolic blood 2022-11-14 19:57:00 53 mm[Hg] Unive rsity of pressure [place] [facility] Heart rate 2022-11-14 19:57:00 84 /min Universi ty of [place] [facility] Respiratory rate 2022-11-14 19:57:00 18 /min Univ ersity of [place] [facility] Body height 2022-11-14 19:57:00 152.4 cm Universi ty of [place] [facility] Body weight 2022-11-14 19:57:00 69.4 kg Universi ty [facility] [place] [facility] BMI 2022-11-14 19:57:00 29.88 kg/m2 [facility]i ty [facility] [place] [facility] Systolic blood 2022-11-10 17:40:00 107 mm[Hg] Univer sity of pressure [place] [facility] Diastolic blood 2022-11-10 17:40:00 68 mm[Hg] Unive rsity of pressure [place] [facility] Heart rate 2022-11-10 17:40:00 77 /min Universi ty of [place] [facility] Respiratory rate 2022-11-10 17:40:00 16 /min Univ ersity of [place] [facility] Body height 2022-11-10 17:40:00 152.4 cm Universi ty [facility] [place] [facility] Body weight 2022-11-10 17:40:00 68.72 kg Universi ty [facility] [place] [facility] BMI 2022-11-10 17:40:00 29.59 kg/m2 Universi ty [facility] [place] [facility] Oxygen saturation in 2022-11-10 17:40:00 98 /min University of Arterial blood by [place] [employer] [place] P[facility] oximetry Branch Systolic blood 2020-01-07 14:30:00 108 mm[Hg] Univer sity of pressure [place] [facility] Diastolic blood 2020-01-07 14:30:00 67 mm[Hg] Unive rsity of pressure [place] [facility] Heart rate 2020-01-07 14:30:00 66 /min Universi ty of [place] [facility] Body temperature 2020-01-07 14:30:00 36.56 [facility] ersity of [place] [facility] Respiratory rate 2020-01-07 14:30:00 16 /min Univ ersity of [place] [facility] Body height 2020-01-07 14:30:00 152.4 cm Universi ty [facility] [place] [facility] Body weight 2020-01-07 14:30:00 68.55 kg Universi ty [facility] [place] [facility] BMI 2020-01-07 14:30:00 29.51 kg/m2 Universi ty [facility] [place] [facility] Systolic blood 2019-11-28 20:21:00 112 mm[Hg] Univer sity of pressure [place] [facility] Diastolic blood 2019-11-28 20:21:00 77 mm[Hg] Unive rsity of pressure [place] [facility] Heart rate 2019-11-28 20:21:00 83 /min Universi ty of [place] [facility] Body temperature 2019-11-28 20:21:00 36.56 [facility] ersity [facility] [place] [facility] Respiratory rate 2019-11-28 20:21:00 16 /min Univ ersity of [place] [facility] Body height 2019-11-28 20:21:00 152.4 cm Universi ty [facility] [place] [facility] Body weight 2019-11-28 20:21:00 70.081 kg Universi ty [facility] [place] [facility] BMI 2019-11-28 20:21:00 30.17 kg/m2 [facility]i ty [facility] [place] [facility] Systolic blood 2019-11-28 20:21:00 112 mm[Hg] Univer sity of pressure [place] [facility] Diastolic blood 2019-11-28 20:21:00 77 mm[Hg] Unive rsity of pressure [facility] Heart rate 2019-11-28 20:21:00 83 /min Universi ty of [place] [facility] Body temperature 2019-11-28 20:21:00 36.56 [facility] ersity of [place] [facility] Respiratory rate 2019-11-28 20:21:00 16 /min Univ ersity of [place] [facility] Body height 2019-11-28 20:21:00 152.4 cm Universi ty [facility] [place] [facility] Body weight 2019-11-28 20:21:00 70.081 kg Universi ty [facility] [place] [facility] BMI 2019-11-28 20:21:00 30.17 kg/m2 [facility]i ty [facility] [place] [facility] Systolic blood 2019-11-24 12:57:00 117 mm[Hg] Univer sity of pressure [facility] Diastolic blood 2019-11-24 12:57:00 59 mm[Hg] Unive rsity of pressure [facility] Heart rate 2019-11-24 12:57:00 99 /min Universi ty [facility] [place] [facility] Body temperature 2019-11-24 12:57:00 36.44 [facility] ersity of [place] [facility] Respiratory rate 2019-11-24 12:57:00 18 /min Univ ersity of [place] [facility] Oxygen saturation in 2019-11-24 12:57:00 100 /min University of Arterial blood by [facility] Pulse oximetry Branch Body height 2019-11-22 17:18:00 152.4 cm Universi ty [facility] [place] [facility] Body weight 2019-11-22 17:18:00 72.122 kg Universi ty [facility] [place] [facility] BMI 2019-11-22 17:18:00 31.05 kg/m2 [facility]i ty [facility] [place] [facility] Systolic blood 2019-11-24 12:57:00 117 mm[Hg] Univer sity of pressure [place] [facility] Diastolic blood 2019-11-24 12:57:00 59 mm[Hg] Unive rsity of pressure [place] [facility] Heart rate 2019-11-24 12:57:00 99 /min Universi ty [facility] [place] [facility] Body temperature 2019-11-24 12:57:00 36.44 [facility] ersity of [place] [facility] Respiratory rate 2019-11-24 12:57:00 18 /min Univ ersity of [place] [facility] Oxygen saturation in 2019-11-24 12:57:00 100 /min University of Arterial blood by [place] [employer] [facility] Pulse oximetry Branch Body height 2019-11-22 17:18:00 152.4 cm Universi ty [facility] [place] [facility] Body weight 2019-11-22 17:18:00 72.122 kg Universi ty [facility] [place] [facility] BMI 2019-11-22 17:18:00 31.05 kg/m2 [facility]i ty [facility] [place] [facility] Systolic blood 2019-11-18 13:42:00 124 mm[Hg] Univer sity of pressure [facility] Diastolic blood 2019-11-18 13:42:00 70 mm[Hg] Unive rsity of pressure [facility] Heart rate 2019-11-18 13:42:00 79 /min Universi ty [facility] [place] [facility] Body temperature 2019-11-18 13:42:00 36.17 [facility] ersity [facility] [place] [facility] Respiratory rate 2019-11-18 13:42:00 16 /min Univ ersity of [place] [facility] Body height 2019-11-18 13:42:00 152.4 cm Universi ty [facility] [place] [facility] Body weight 2019-11-18 13:42:00 73.057 kg Universi ty [facility] [place] [facility] BMI 2019-11-18 13:42:00 31.46 kg/m2 [facility] ty [facility] [place] [facility] Systolic blood 2019-11-18 13:42:00 124 mm[Hg] Univer sity of pressure [place] [facility] Diastolic blood 2019-11-18 13:42:00 70 mm[Hg] Unive rsity of pressure [facility] Heart rate 2019-11-18 13:42:00 79 /min Universi ty [facility] [place] [facility] Body temperature 2019-11-18 13:42:00 36.17 [facility] ersity [facility] [place] [facility] Respiratory rate 2019-11-18 13:42:00 16 /min Univ ersity of [place] [facility] Body height 2019-11-18 13:42:00 152.4 cm [facility] Body weight 2019-11-18 13:42:00 73.057 kg [facility] BMI 2019-11-18 13:42:00 31.46 kg/m2 [facility] Systolic blood 2019-11-11 13:57:00 118 mm[Hg] [facility] Diastolic blood 2019-11-11 13:57:00 69 mm[Hg] [facility] Heart rate 2019-11-11 13:57:00 82 /min [facility] Body temperature 2019-11-11 13:57:00 36.33 [facility] Respiratory rate 2019-11-11 13:57:00 16 /min [facility] Body height 2019-11-11 13:57:00 152.4 cm [facility] Body weight 2019-11-11 13:57:00 71.697 kg [facility] BMI 2019-11-11 13:57:00 30.87 kg/m2 [facility] Systolic blood 2019-11-11 13:57:00 118 mm[Hg] [facility] Diastolic blood 2019-11-11 13:57:00 69 mm[Hg] [facility] Heart rate 2019-11-11 13:57:00 82 /min [facility] Body temperature 2019-11-11 13:57:00 36.33 [facility] Respiratory rate 2019-11-11 13:57:00 16 /min [facility] Body height 2019-11-11 13:57:00 152.4 cm [facility] Body weight 2019-11-11 13:57:00 71.697 kg [facility] BMI 2019-11-11 13:57:00 30.87 kg/m2 [facility] Systolic blood 2019-10-27 15:32:00 114 mm[Hg] [facility] Diastolic blood 2019-10-27 15:32:00 66 mm[Hg] [facility] Heart rate 2019-10-27 15:32:00 83 /min [facility] Body temperature 2019-10-27 15:32:00 36.89 [facility] Respiratory rate 2019-10-27 15:32:00 16 /min [facility] Body height 2019-10-27 15:32:00 152.4 cm [facility] Body weight 2019-10-27 15:32:00 70.308 kg [facility] BMI 2019-10-27 15:32:00 30.27 kg/m2 [facility] Systolic blood 2019-10-13 15:00:00 116 mm[Hg] [facility] Diastolic blood 2019-10-13 15:00:00 67 mm[Hg] [facility] Heart rate 2019-10-13 15:00:00 84 /min [facility] Body temperature 2019-10-13 15:00:00 36.39 [facility] Respiratory rate 2019-10-13 15:00:00 16 /min [facility] Body height 2019-10-13 15:00:00 152.4 cm [facility] Body weight 2019-10-13 15:00:00 69.31 kg [facility] BMI 2019-10-13 15:00:00 29.84 kg/m2 [facility] Systolic blood 2019-10-02 15:13:00 128 mm[Hg] [facility] Diastolic blood 2019-10-02 15:13:00 71 mm[Hg] [facility] Heart rate 2019-10-02 15:13:00 81 /min [facility] Body temperature 2019-10-02 15:13:00 36.22 [facility] Respiratory rate 2019-10-02 15:13:00 16 /min [facility] Body height 2019-10-02 15:13:00 152.4 cm [facility] Body weight 2019-10-02 15:13:00 67.586 kg [facility] BMI 2019-10-02 15:13:00 29.10 kg/m2 [facility] Systolic blood 2019-09-30 19:43:00 113 mm[Hg] [facility] Diastolic blood 2019-09-30 19:43:00 67 mm[Hg] [facility] Heart rate 2019-09-30 19:43:00 91 /min [facility] Body temperature 2019-09-30 19:43:00 36.22 [facility] Respiratory rate 2019-09-30 19:43:00 16 /min [facility] Body height 2019-09-30 19:43:00 152.4 cm [facility] Body weight 2019-09-30 19:43:00 67.189 kg [facility] BMI 2019-09-30 19:43:00 28.93 kg/m2 [facility] Procedures Procedure Date / Time Performing Clinician Source Performed INSURANCE CORRESPONDENCE 2022-11-21 05:01:00 Doctor Tiff, [facility] POCT TEST 2022-11-15 00:00:00 Ruddy Colbert [facility] ASSIGNMENT OF BENEFITS 2022-11-10 17:19:34 [facility] 2020-01-07 14:33:00 Rashid Cha [facility] CONSENT FOR CONTRACEPTION 2020-01-07 05:01:00 Doctor Tiff, [facility] CBC WITH DIFFERENTIAL 2019-11-23 09:13:00 Reynold Jones [facility] ARTERIAL CORD GAS 2019-11-22 23:50:00 [facility] VENOUS CORD GAS 2019-11-22 23:49:00 [facility] SECTION 2019-11-22 23:00:00 Fidelia [facility] HEPATITIS B SURFACE 2019-11-22 20:42:00 [facility] ANTIGEN [facility] GALV ONLY - SYPHILIS 2019-11-22 20:42:00 [facility] IGG/IGM [facility] HB ABO GROUPING 2019-11-22 20:02:00 [facility] RHO (D) IMMUNE GLOBULIN 2019-11-22 20:02:00 Reynold Jones [facility] CORONAVIRUS COVID-19 2019-11-22 17:09:00 [facility]idel[facility] POCT URINALYSIS 2019-11-18 13:49:00 Carla Rajan [facility] POCT URINALYSIS 2019-11-11 14:00:00 Carla Rajan [facility] POCT URINALYSIS 2019-10-27 17:09:00 Carla Rajan [facility] AUTHORIZATION TO RELEASE 2019-10-09 06:01:00 Doctor Matthew, [facility] PHI TO [facility] TDAP VACCINE, >11 YRS, IM 2019-09-30 20:39:21 Carla Rajan [facility] FLU VACC ([phone]), 6+ 2019-09-30 20:22:55 Carla Rajan [facility] MONTHS, IM, QUAD [facility] POCT URINALYSIS W/O 2019-09-30 19:35:00 Carla Rajan [facility] [place] [facility] GRAVITY [facility] POCT TEST 2019-09-30 19:34:00 Carla Rajan Uni [facility] ASSIGNMENT OF BENEFITS 2019-09-30 19:11:56 [facility] [place] [facility] Encounters Start End Encounter Admission Attending Care Care Encounter Source Date/Time Date/Time Type Type Clinicians Facility Department ID 2021-06-09 Outpatient [facility] [id number] Univers 17:44:35 [facility] 2023-03-29 2023-03-29 Outpatient R RUDDY COLBERT [facility] B [id number] Univers 16:30:00 16:37:41 RUDDY COLBERT [facility] 2023-03-29 2023-03-29 [facility] 1.2.840.114 [id number] Univers 16:30:00 16:37:41 Visit Ruddy BULLARD 350.1.13.10 it y of WOMEN'S 4.2.7.2.686 [facility] [id number] [place] [address] Branch 2023-02-07 2023-02-07 Outpatient R RUDDY COLBERT [facility] B [id number] Univers 13:00:00 13:00:00 RUDDY COLBERT [facility] 2022-12-13 2022-12-13 Outpatient [facility] [id number] 16:42:16 16:42:16 08293 F Gee 2022-12-13 2022-12-13 Outpatient R [facility] [id number] Univers 15:15:00 15:15:00 [facility] 2022-11-22 2022-11-[address] [facility] 1.2.840.114 [id number] Univers 00:00:00 00:00:00 Brittni ALEAH 350.1.13.10 it [place] [place] [facility] [id number] [address] 2022-11-21 2022-11-21 Orders Doctor ESTUARDO 1.2.840.114 [id number] Univers 00:00:00 00:00:00 Only Unassigned, [place] 350.1.13.10 ity of [place] [facility] 4.2.7.2.686 Juan as [id number] [place] [address] Branch 2022-11-20 2022-11-20 Telephone [facility] 1.2.840.11 [id number] Univers 00:00:00 00:00:00 Ruddy BULLARD 350.1.13.10 [place] [place] [facility] [id number] [address] 2022-11-16 2022-11-16 Telephone [facility] 1.2.840.11 [id number] Univers 00:00:00 00:00:00 Ruddy BULLARD 350.1.13.10 [place] [id number] [address] 2022-11-15 2022-11-15 Outpatient R RUDDY COLBERT [facility] B [id number] Univers 14:30:00 15:04:36 RUDDY COLBERT [facility] 2022-11-15 2022-11-15 [facility] 1.2.840.114 [id number] Univers 14:30:00 15:04:36 Visit Ruddy BULLARD 350.1.13.10 [place] [id number] [address] 2022-11-14 2022-11-14 Outpatient R RUDDY COLBERT [facility] B [id number] Univers 15:00:00 15:16:26 RUDDY COLBERT [facility] 2022-11-14 2022-11-14 Office [facility] 1.2.840.114 [id number] Univers 15:00:00 15:16:26 Visit Ruddy BULLARD 350.1.13.10 [place] [id number] [facility] [address] 2022-11-10 2022-11-10 Outpatient R JENSENCECI TOROCHRIS [facility] B [id number] Univers 13:00:00 13:04:39 TRIMADELEINE RUDDY ity of [facility] 2022-11-10 2022-11-10 Office [facility] 1.2.840.114 [id number] Univers 13:00:00 13:04:39 Visit Ruddy BULLARD 350.1.13.10 it [place] [id number] [address] 2022-11-10 2022-11-10 Orders Doctor ESTUARDO 1.2.840.114 [id number] Univers 00:00:00 00:00:00 Only Unassigned, [place] 350.1.13.10 ity of [place] [facility] 4.2.7.2.686 Juan as [id number] [place] [address] Branch 2020-11-02 2020-11-02 Patient Zander [facility] 1.2.840.114 [id number] Univers 00:00:00 00:00:00 Outreach Declan PRIMARY 350.1.13.10 i ty of [facility] [place]7.2.[place] [id number] Mn dical [address] 2020-01-07 2020-01-07 [facility] 1.2.840.114 [id number] Univers 09:23:30 10:10:21 Visit Rashid Kidd VOCATIONAL REHAB CONSULTANT 350.1.13.10 ity of [facility] 4.2.7.2.686 Juan as MATERNAL [id number] Med ical & CHILD 107 [facility] 2020-01-07 2020-01-07 Outpatient R STARLA [facility] [id number] Univers 09:00:00 09:00:00 RASHID christie o f [facility] 2020-01-07 2020-01-07 Orders Doctor ESTUARDO 1.2.840.114 [id number] Univers 00:00:00 00:00:00 Only Unassigned, [place] 350.1.13.10 ity [place] [facility] 4.2.7.2.686 Juan as [id number] [address] 2019-12-16 2019-12-16 Outpatient R STARLA [facility] [id number] Univers 09:15:00 09:15:00 RASHID moore [facility] 2019-12-16 2019-12-16 [facility]arciso [facility] 1.2.840.114 [id number] Univers 07:34:01 09:03:14 ne Visit Rashid Kidd VOCATIONAL REHAB CONSULTANT 350.1.13.10 ity of [facility] 4.2.7.2.686 Juan as MATERNAL [id number] Med ical & CHILD [address] [place] [address] 2019-12-16 2019-12-16 [facility]ulio [facility] 1.2.840.114 [id number] 07:34:01 09:03:14 ne Visit Rashid Bernabe VOCATIONAL REHAB CONSULTANT 350.1.13.10 [facility] 4.2.7.2.686 MATERNAL [id number] & CHILD 107 [facility] 2019-11-28 2019-11-28 Nurse Visit, Qian Nurse [facility] 1.2 .840.114 [id number] Univers 14:57:15 15:27:42 Visit Carla Rajan VOCATIONAL REHAB CONSULTANT 350.1.13. 10 ity of [facility] 4.2.7.2.686 Juan as MATERNAL [id number] Med ical & CHILD [address] [place] [address] 2019-11-28 2019-11-28 Nurse Visit, [facility] 1.2.840.114 [id number] 14:57:15 15:27:42 Visit Qian VOCATIONAL REHAB CONSULTANT 350.1.13.10 Nurse [facility] 4.2.7.2.686 MATERNAL [id number] & CHILD 107 [facility] 2019-11-28 2019-11-28 Outpatient R SATINDER [facility] [id number] Univers 15:00:00 15:00:00 CARLA ity o f [facility] 2019-11-25 2019-11-25 Outpatient R AKINSIPE, [facility] [id number] Univers 09:30:00 09:30:00 CARLA ity o f [facility] 2019-11-25 2019-11-25 Outpatient R AKINSIPE, [facility] [id number] Univers 09:15:00 09:15:[address] [facility] 2019-11-22 2019-11-24 [facility] [id number] [id number] Univers 11:49:00 12:16:00 Encounter Fidelia [place] 350.1.13.10 ity of HOSPITAL 4.2.7.2.686 Juan as [id number] [address] 2019-11-22 2019-11-24 [facility] 1.2.735.028 [id number] 11:49:00 12:16:00 Encounter Fidelia [place] 350.1.13.10 HOSPITAL 4.2.7.2.686 [id number] [facility] 2019-11-18 2019-11-18 Routine Akinsipe, [facility] 1.2.410.845 [id number] Univers 08:34:45 08:55:27 Carla C VOCATIONAL REHAB CONSULTANT 350.1.13.10 ity of Visit REGIONAL 4.2.7.2.686 Juan as MATERNAL [id number] Med ical & CHILD [address] [place] [address] 2019-11-18 2019-11-18 Routine Akinsipe, [facility] 1.2.091.644 [id number] 08:34:45 08:55:27 Carla C VOCATIONAL REHAB CONSULTANT 350.1.13.10 Visit REGIONAL 4.2.7.2.686 MATERNAL [id number] & CHILD [address] [place] [address] 2019-11-18 2019-11-18 Outpatient R AKINSIPE, [facility] [id number] Univers 08:45:00 08:45:00 CARLA ity o f [facility] 2019-11-11 2019-11-11 Routine Akinsipe, [facility] 1.2.804.807 [id number] Univers 08:49:21 09:26:07 Carla C VOCATIONAL REHAB CONSULTANT 350.1.13.10 ity of Visit REGIONAL 4.2.7.2.686 Juan as MATERNAL [id number] [facility] & CHILD [address] [place] [address] 2019-11-11 2019-11-11 Routine Akinsipe, [facility] 1.2.755.963 [id number] 08:49:21 09:26:07 Carla C VOCATIONAL REHAB CONSULTANT 350.1.13.10 Visit REGIONAL 4.2.7.2.686 MATERNAL [id number] & CHILD [address] [place] [address] 2019-11-11 2019-11-11 Outpatient R AKINFORMERLY [facility], [facility] [id number] Univers 09:00:00 09:00:00 CARLA ity o f [facility] 2019-10-27 2019-10-27 Routine [facility], [facility] 1.2.605.092 [id number] Univers 09:42:46 12:09:33 Carla C VOCATIONAL REHAB CONSULTANT 350.1.13.10 ity of Visit REGIONAL 4.2.7.2.686 Juan as MATERNAL [id number] [facility] & [address] 2019-10-27 2019-10-27 Outpatient R AKINSHANT, [facility] [id number] Univers 09:30:00 09:30:00 CARLA ity o f [facility] 2019-10-13 2019-10-13 Routine Faculty, [facility] 1.2 .840.114 [id number] Univers 08:47:13 11:29:01 Leandro Neff VOCATIONAL REHAB CONSULTANT 350.1.13.10 ity of Visit REGIONAL 4.2.7.2.686 Juan as MATERNAL [id number] [facility] & CHILD [address] [place] [address] 2019-10-13 2019-10-13 Outpatient R [facility] [id number] Univers 09:00:00 09:00:00 ity of [facility] 2019-10-09 2019-10-09 Orders Doctor MARTE 1.2.840.114 [id number] Univers 00:00:00 00:00:00 Only Unassigned, LUKE 350.1.13.[address] [facility] 4.2.7.2.686 Juan as [id number] [address] 2019-10-02 2019-10-02 Nurse Visit, Qian Nurse [place] 1.2 .840.114 [id number] Univers 09:02:47 09:32:54 Visit Carla Rajan VOCATIONAL REHAB CONSULTANT 350.1.13. 10 ity of [facility] 4.2.7.2.686 Juan as MATERNAL [id number] [facility] ical & CHILD [address] [place] [address] 2019-10-01 2019-10-01 Ditching Machine Operator Ultrasound, Ayden [place] 1.[id number] [facility] 09:01:49 10:01:49 Visit Carla Rajan VOCATIONAL REHAB CONSULTANT 350.1.13. 10 ity of [facility] 4.2.7.2.686 Juan as MATERNAL [id number] [facility] ical & CHILD [address] [facility] 2019-10-01 2019-10-01 Ditching Machine Operator Lab, Qian [place] 1.2.840. 114 [id number] Univers 08:36:33 08:41:17 Visit Carla Rajan VOCATIONAL REHAB CONSULTANT 350.1.13. 10 ity of [facility] 4.2.7.2.686 Juan as MATERNAL [id number] [facility] ical & CHILD [address] [place] [address] 2019-10-01 2019-10-01 Abstract Satinder RIJUAN 1.2.840.114 [id number] Univers 00:00:00 00:00:00 Carla C VOCATIONAL REHAB CONSULTANT 350.1.13.10 ity of [facility] 4.2.7.2.686 Juan as MATERNAL [id number] [facility] ical & CHILD [address] [place] [address] 2019-10-01 2019-10-01 Telephone Satinder RIJUAN 1.2.840.114 [id number] Univers 00:00:00 00:00:00 Carla C VOCATIONAL REHAB CONSULTANT 350.1.13.10 ity of [facility] 4.2.7.2.686 Juan as MATERNAL [id number] [facility] ical & CHILD [address] [place] [address] 2019-09-30 2019-09-30 Initial Akinsipe, [facility] 1.2.041.899 [id number] Univers 13:30:37 14:59:32 Carla C VOCATIONAL REHAB CONSULTANT 350.1.13.10 ity of Visit [facility] 4.2.7.2.686 Juan as MATERNAL [id number] Med ical & CHILD [address] [place] [address] 2019-09-30 2019-09-30 Orders Doctor ESTUARDO 1.2.840.[id number] [place] [address] 00:00:00 00:00:00 Only Unassigned, LUKE 350.1.13.10 ity of [place] [facility] 4.2.7.2.686 Juan as [id number] [address] Results Test Description Test Time Test Comments Results Result Comments Source POCT TEST 2022-11-15 19:42:00 Test Item Value Reference Range Interpretation Comme nts POCT PREG (test code = 1605) Negative On board controls acceptable with C Line (test code = 3574) Yes POCT PREG LOT # (test code = 3575) POCT PREG TEST DATE (test code = 3576) [id number] 19:42:00 Test Item Value Reference Range Interpretation Comments POCT PREG (test code = 1605) Negative On board controls acceptable with C Yes Line (test code = 3574) POCT PREG LOT # (test code = 3575) POCT PREG TEST DATE (test code = 3576) [facility] [id number] 14:33:00 Test Item Value Reference Range Interpretation Comments POCT PREG (test code = 1605) Negative On board controls acceptable with C Yes Line (test code = 3574) POCT PREG LOT # (test code = 3575) POCT PREG TEST DATE (test code = 3576) [facility] [id number] 14:33:00 Test Item Value Reference Range Interpretation Comments POCT PREG (test code = 1605) Negative On board controls acceptable with C Yes Line (test code = 3574) POCT PREG LOT # (test code = 3575) POCT PREG TEST DATE (test code = 3576) [facility] - SYPHILIS [id number] 15:38:00 Test Item Value Reference Range Interpretation Comments Syphilis IgG/IgM (test Non-reactive Non-reactive code = 44381-6) JOSE RAFAEL (test code = JOSE RAFAEL) Non-reactive - No serologic evidence of T. pallidum infection. Cannot exclude incubating or early syphilis. Submit a second specimen in 2-4 weeks if syphilis is clinically suspected. Equivocal - Further testing to follow. Reactive - Further testing to follow. Lab Interpretation (test Normal code = 07254-4) [facility] WITH [id number] 09:57:00 Test Item Value Reference Range Interpretation Comments WBC (test code = See_Comment H [Automated 0090-2) message] The system which generated this result [...] RDW-SD (test code = 44.9 fL 38.5-49 46819-2) RDW-CV (test code = 13.5 % 11.5-14 788-0) PLT (test code = See_Comment [Automated 777-3) message] The system which generated this result transmit gianna reference range : 135 - 361 10*3/ ?L. The reference range was not u sed to interpret th is result as normal/abnormal . MPV (test code = 11.5 fL 9.4-13.3 01503-5) NRBC/100 WBC (test See_Comment [Automat ed code = 5263227600) message] The system which generated this result transmit gianna reference range : 0.0 - 10.0 /100 WBCs. The reference range was not used to interpret this result as normal/abnormal . NRBC x10^3 (test code <0.01 See_Comment [Auto mated = 1329034096) message] The system which generated this result transmit gianna reference range : 10*3/?L. The reference range was not used to interpret this result as normal/abnormal . GRAN MAT (NEUT) % 82.3 % (test code = 770-8) IMM GRAN % (test code 1.00 % = 2749284135) LYMPH % (test code = 10.2 % 736-9) MONO % (test code = 5.6 % 5905-5) EOS % (test code = 0.5 % 713-8) BASO % (test code = 0.4 % 706-2) GRAN MAT x10^3(ANC) 14.09 10*3/uL 1.5-10.3 H (test code = 8279240987) IMM GRAN x10^3 (test 0.17 10*3/uL 0-0.06 H code = 0164372775) LYMPH x10^3 (test code 1.74 10*3/uL 0.7-7.4 = 731-0) MONO x10^3 (test code 0.96 10*3/uL 0-0.5 H = 742-7) EOS x10^3 (test code = 0.09 10*3/uL 0-0.4 711-2) BASO x10^3 (test code 0.06 10*3/uL 0-0.1 = 704-7) BANDS (test code = Increased A 6889677084) Lab Interpretation Abnormal (test code = 64847-5) [facility] IMMUNE [id number] 04:07:12 Test Item Value Reference Range Interpretation Comments RHIG CANDIDATE? No- see comment Patient i s not a (test code = candidate for R hIg- 5055) Patient is Rh Positive.Perfor med at [facility] Laboratory Services - [facility] Blood [address] [place] [address]Frpt Free: [phone] A No. [id number] [facility] [id number] 23:57:00 Test Item Value Reference Range Interpretation Comments BASE EXCESS, CORD (test mEq/L code = 4615460877) AC PH, CORD (BEAKER) 7.18-7.38 (test code = 5166974987) PC02, CORD (test code = See_Comment H [Au tomated message] 7345830877) The system whic h generated this result transmitted ref erence range: 32 - 66 mmHg. The reference r devin was not used to interpret this result as normal/abnor mal. PO2, CORD (test code = See_Comment [Aut omated message] 7550677770) The system [employer] h generated this result transmitted ref erence range: 10 - 30 mmHg. The reference r devin was not used to interpret this result as normal/abnor mal. BICARBONATE, CORD (test See_Comment H [Au tomated message] code = 0768023183) The syste m which generated this result transmitted ref erence range: 17 - 27 mEq/L. The reference r devin was not used to interpret this result as normal/abnor mal. Lab Interpretation (test Abnormal code = 71410-2) [facility] [id number] 23:52:00 Test Item Value Reference Range Interpretation Comments VENOUS BASE EXCESS, CORD mEq/L (test code = 5826551199) VENOUS PH, CORD (test 7.25-7.45 code = 4266845312) VENOUS PC02, CORD (test See_Comment H [Au tomated message] code = 8073412389) The syste m which generated this result transmitted ref erence range: 27 - 49 mmHg. The reference r devin was not used to interpret this result as normal/abnor mal. VENOUS PO2, CORD (test See_Comment [Aut omated message] code = 1784918738) The syste m which generated this result transmitted ref erence range: 17 - 41 mmHg. The reference r devin was not used to interpret this result as normal/abnor mal. VENOUS BICARBONATE, CORD See_Comment [A utomated message] (test code = 4978956468) The system which generated this result transmitted ref erence range: 12 - 29 mEq/L. The reference r devin was not used to interpret this result as normal/abnor mal. Lab Interpretation (test Abnormal code = 85748-6) [facility] [id number] 22:06:00 Test Item Value Reference Range Interpretation Comments HBsAg Semi-Quantitative (test code = Negative Negative 5195-3) [facility] - ONCE [id number] 21:39:44 Test Item Value Reference Range Interpretation Comments ABO & RH (test code O POSITIVE Performe d at [facility] = 20) Laboratory Serv [facility] [address] [facility] s [id number] Free: [phone] A No. [id number] IAT (test code = Negative Performed a t [facility] 1185) Laboratory Serv [facility] Blood Bank3 [facility] s [id number] Free: [phone] A No. [id number] [facility] [id number] 18:00:00 Test Item Value Reference Range Interpretation Comments SARS-CoV-2 (test code = Not Detected Not Detected 74048-7) JOSE RAFAEL (test code = JOSE RAFAEL) ID NOW COVID-19 Assay is an isothermal nucleic acid amplification test intended for the qualitative detection of nucleic acid from SARS-CoV-2 viral RNA in nasopharyngeal (AIRLINE HOSTESS) specimens. It is used under Emergency Use [...] indicated. Lab Interpretation Normal (test code = 90757-3) [facility] W SPECIFIC [id number] 13:49:00 Test Item Value Reference Range Interpretation [...] POCT U APPEAR (test code = 3267) [facility] URINALYSIS W SPECIFIC [id number] 14:00:00 Test Item Value Reference Range Interpretation [...] POCT U APPEAR (test code = 3267) [facility] URINALYSIS W SPECIFIC [id number] 14:00:00 Test Item Value Reference Range Interpretation [...] POCT U APPEAR (test code = 3267) [facility] URINALYSIS W SPECIFIC [id number] 17:09:00 Test Item Value Reference Range Interpretation [...] POCT U APPEAR (test code = 3267) [facility] URINALYSIS W/O SPECIFIC [id number] 19:35:00 Test Item Value Reference Range Interpretation [...] code = 3257) Neg Negative - Negative [facility] URINALYSIS W/O SPECIFIC [id number] 19:35:00 Test Item Value Reference Range Interpretation [...] code = 3257) Neg Negative - Negative [facility] URINALYSIS W/O SPECIFIC [id number] 19:35:00 Test Item Value Reference Range Interpretation [...] code = 3257) Neg Negative - Negative [facility] URINALYSIS W/O SPECIFIC [id number] 19:35:00 Test Item Value Reference Range Interpretation [...] code = 3257) Neg Negative - Negative [facility] [id number] 19:34:00 Test Item Value Reference Range Interpretation Comments POCT PREG (test code = 1605) Positive On board controls acceptable with C Yes Line (test code = 3574) POCT PREG LOT # (test code = 3575) POCT PREG TEST DATE (test code = 3576) [facility] [id number] 19:34:00 Test Item Value Reference Range Interpretation Comments POCT PREG (test code = 1605) Positive On board controls acceptable with C Yes Line (test code = 3574) POCT PREG LOT # (test code = 3575) POCT PREG TEST DATE (test code = 3576) [facility] [id number] 19:34:00 Test Item Value Reference Range Interpretation Comments POCT PREG (test code = 1605) Positive On board controls acceptable with C Yes Line (test code = 3574) POCT PREG LOT # (test code = 3575) POCT PREG TEST DATE (test code = 3576) [facility] [id number] 19:34:00 Test Item Value Reference Range Interpretation Comments POCT PREG (test code = 1605) Positive On board controls acceptable with C Yes Line (test code = 3574) POCT PREG LOT # (test code = 3575) POCT PREG TEST DATE (test code = 3576) [facility]
--- NOTE | 2023-04-15 18:48 | RAD REPORT ---
EXAM DESCRIPTION: RAD - Humerus Right - 04/15/2023 6:24 pm CLINICAL HISTORY: PAIN COMPARISON: No comparisons FINDINGS/IMPRESSION: No acute fracture. No malalignment. No significant focal degenerative changes.
--- NOTE | 2023-04-15 18:48 | RAD REPORT ---
EXAM DESCRIPTION: RAD - Forearm Right - 04/15/2023 6:24 pm CLINICAL HISTORY: PAIN COMPARISON: Humerus Right dated 04/15/2023 FINDINGS/IMPRESSION: No acute fracture. No malalignment. No significant focal degenerative changes.
--- NOTE | 2023-04-15 18:54 | ER ---
Nurse's Notes [facility] Name: Atiya Castellanos Age: 22 yrs Sex: Female : 2000 Arrival Date: 04/15/2023 Time: 17:55 Bed 12 Private MD: Diagnosis: Pain in right arm Presentation: 04/15 18:03 Chief complaint: Patient states: fell down stairs whiel trying to get the stroller down iw , injured her right wrist. Coronavirus screen: At this time, the client does not indicate any symptoms associated with coronavirus-19. Ebola Screen: Patient negative for fever greater than or equal to 101.5 degrees Fahrenheit, and additional compatible Ebola Virus Disease symptoms Patient denies exposure to infectious person. Patient denies travel to an Ebola-affected area in the 21 days before illness onset. No symptoms or risks identified at this time. Initial Sepsis Screen: Does the patient meet any 2 criteria? No. Patient's initial sepsis screen is negative. Does the patient have a suspected source of infection? No. Patient's initial sepsis screen is negative. Risk Assessment: Do you want to hurt yourself or someone else? Patient reports no desire to harm self or others. Onset of symptoms was April 15, 2023. 18:03 Method Of Arrival: Ambulatory iw 18:03 Acuity: CHRIS 4 iw Historical: - Allergies: 18:04 Milk/dairy products; iw 18:04 Soy; iw - PMHx: 18:04 Bipolar disorder; iw - PSHx: 18:04 section; eye; iw - Social history:: Smoking status: unknown. Screenin:07 [facility] ED Fall Risk Assessment (Adult) Score/Fall Risk Level 0 - 2 = Low Risk. Abuse iw screen: Denies threats or abuse. Denies injuries from another. Nutritional screening: No deficits noted. Tuberculosis screening: No symptoms or risk factors identified. Assessment: 18:06 General: Appears in no apparent distress. Behavior is calm, cooperative. Pain: iw Complains of pain in right hand and right arm. Neuro: Level of Consciousness is awake, alert, obeys commands, Oriented to person, place, time, situation, Moves all extremities. Full function. Cardiovascular: Patient's skin is warm and dry. Derm: Skin is intact, is healthy with good turgor. Musculoskeletal: Range of motion: limited in right wrist. Vital Signs: 18:06 BP 99 / 78; Pulse 61; Resp 16; Temp 98.1; Pulse Ox 99% on R/A; iw ED Course: 17:59 Patient arrived in ED. ts1 18:03 Sandy Tang [facility]C [facility] kb 18:03 Jennifer Lechuga MD is Attending Physician. kb 18:03 Zora Velasco, RN is Primary Nurse. iw 18:04 Triage completed. iw 18:04 Arm band placed on. iw 18:07 Patient did not have IV access during this emergency room visit. iw 18:10 Patient has correct armband on for positive identification. Provided Education on: . iw 18:26 Humerus Right XRAY In Process Unspecified. EDMS 18:26 Forearm Right XRAY In Process Unspecified. EDMS 19:14 No provider procedures requiring assistance completed. iw Administered Medications: No medications were administered Medication: 18:06 VIS not applicable for this client. iw Outcome: 18:53 Discharge ordered by MD. kb 19:14 Discharged to home ambulatory, with family. iw 19:14 Condition: good 19:14 Discharge instructions given to patient, Instructed on discharge instructions, follow up and referral plans. Demonstrated understanding of instructions, follow-up care. 19:15 Patient left the ED. iw Signatures: Dispatcher [employer] EDMS Sandy Tang FNP-C FNP-Zora Mooney, RN RN iw Sirena Pittman PAS PAS ts1 Corrections: (The following items were deleted from the chart) 18:10 18:06 Pulse 61bpm; Resp 16bpm; Pulse Ox 99% RA; Temp 98.1F; iw iw
--- NOTE | 2023-04-15 18:54 | EDPHYS ---
Physician Documentation [facility] Name: Atiya Castellanos Age: 22 yrs Sex: Female : 2000 Arrival Date: 04/15/2023 Time: 17:55 Bed 12 Private MD: ED Physician Jennifer Lechuga HPI: 04/15 18:51 This 22 yrs old Female presents to ER via Ambulatory with complaints of Arm Injury. kb 18:51 The patient or guardian complains of injury, pain, that is acute. The complaints affect kb the right arm. Context: resulted from a fall. Onset: The symptoms/episode began/occurred just prior to arrival. Treatment prior to arrival includes: moise wrap. Modifying factors: The symptoms are alleviated by nothing. the symptoms are aggravated by movement. Associated signs and symptoms: Pertinent positives: pain, Pertinent negatives: decreased range of motion, swelling. Severity of symptoms: At their worst the symptoms were mild, in the emergency department the symptoms are unchanged. The patient has not experienced similar symptoms in the past. The patient has not recently seen a physician. 18:52 Pt reports she fell down the steps of her apt complex and has had right arm pain since kb then. Denies any other injuries, denies loc. Historical: - Allergies: 18:04 Milk/dairy products; iw 18:04 Soy; iw - PMHx: 18:04 Bipolar disorder; iw - PSHx: 18:04 section; eye; iw - Social history:: Smoking status: unknown. ROS: 18:18 Constitutional: Negative for fever, chills, and weight loss. kb 18:18 MS/extremity: Positive for pain, of the right arm. 18:18 All other systems are negative. Exam: 18:18 Constitutional: This is a well developed, well nourished patient who is awake, alert, kb and in no acute distress. Head/Face: Normocephalic, atraumatic. ENT: Moist Mucous membranes Cardiovascular: Regular rate and rhythm with a normal S1 and S2. No gallops, murmurs, or rubs. No pulse deficits. Respiratory: Respirations even and unlabored. No increased work of breathing. Talking in full sentences Skin: Warm, dry with normal turgor. Normal color. Neuro: Awake and alert, GCS 15, oriented to person, place, time, and situation. Moves all extremities. Normal gait. 18:18 Musculoskeletal/extremity: Extremities: grossly normal except: noted in the right arm: pain, tenderness, ROM: intact in all extremities, Circulation is intact in all extremities. Sensation intact. Vital Signs: 18:06 BP 99 / 78; Pulse 61; Resp 16; Temp 98.1; Pulse Ox 99% on R/A; iw MDM: 18:03 Patient medically screened. kb 18:18 Differential diagnosis: dislocation, closed fracture, contusion. Data reviewed: vital kb signs, nurses notes. 18:51 Counseling: I had a detailed discussion with the patient and/or guardian regarding the kb historical points, exam findings, and any diagnostic results supporting the discharge/admit diagnosis, radiology results, the need for outpatient follow up, a family practitioner, to return to the emergency department if symptoms worsen or persist or if there are any questions or concerns that arise at home. 04/15 18:04 Order name: Humerus Right XRAY; Complete Time: 18:50 kb 04/15 18:04 Order name: Forearm Right XRAY; Complete Time: 18:50 kb Administered Medications: No medications were administered Disposition Summary: 04/15/23 18:53 Discharge Ordered Location: Home kb Condition: Stable kb Diagnosis - Pain in right arm kb Followup: kb - With: Emergency Department - When: As needed - Reason: Worsening of condition Followup: kb - With: Private Physician - When: 2 - 3 days - Reason: Recheck today's complaints, Continuance of care, Re-evaluation by your physician Discharge Instructions: - Discharge Summary Sheet kb - Musculoskeletal Pain kb Forms: - Medication Reconciliation Form kb - Thank You Letter kb - Antibiotic Education kb - Prescription Opioid Use kb - Patient Portal Instructions kb - Leadership Thank You Letter kb Signatures: Dispatcher [employer] Sandy Avina, DWAYNE-C HIGHWALL DRILL OPERATOR-Zora Mooney, RN RN iw
[2023-04-15 19:28] VITALS: BP 99/78; TEMP 98.1; O2SAT 99
== END 2023-04-15 19:15 | disposition home or self-care (01) ==
LOC: ER 17:55
DX: M79.601 Pain in right arm (principal)
CPT/HCPCS: 99282

== ENCOUNTER 2023-05-21 19:36 | Emergency (ER) | payer SELFPAY ==
--- OUTSIDE RECORDS SUMMARY | 2023-05-21 19:41 | XMS REPORT | Continuity of Care Document ---
:2000 Author Organization [facility] t Address [address] [place] [address] [address] [place] [address] Care Team Providers Name Role Phone TREVER ULYSSES Micheal Primary Care Physician Unavailable RUDDY COLBERT Attending Clinician Unavailable RUDDY COLBERT Attending Clinician Unavailable ERIN TILLEY Attending Clinician Unavailable Brittni Martínez RN Attending Clinician Unavailable Doctor Unassigned, [place] Attending Clinician Unavailable RASHID CHA Attending Clinician Unavailable Declan Fermin DO Attending Clinician Rashid Moses Attending Clinician Visit, Qian Nurse Attending Clinician Unavailable Carla Ramos Attending Clinician [phone] CARLA RAJAN Attending Clinician Unavailable Fidelia Billings MD Attending Clinician Faculty, Han Marquez Attending Clinician Unavailable Leandro Neff MD Attending Clinician Ultrasound, Ayden Attending Clinician Unavailable Lab, Qian Attending Clinician Unavailable Fidelia Billings MD Admitting Clinician Payers Payer Name Policy Type Policy Number Effective Date Expiration Date S marva CURTISS [id number] 2019 HEALTH 00:00:00 MEDICAID [facility] [place] [facility] [id number] 2023 00:00:00 Problems Condition Condition Condition Status Onset Resolution Last Treating Co mments Source Name Details Category Date Date Treatment Clinician Date Encounter Encounter Disease Active Uni vers for IUD for IUD 4-04 [place] [facility] Counseling Counseling Disease Active U nivers for for 3- ity of control control 00:00: [place] regarding regarding [facility] intrauteri intrauteri Br anch ne device ne device (IUD) (IUD) Nexplanon Nexplanon Disease Active Uni vers removal removal 3- ity of 00:00: [address] Disease Active U nivers care and care and 5-05 it[place] examin[place] Medical immediatel immediatel Br anch y after y after delivery delivery BMI BMI Disease Active Univers 30.0-30.9, 30.0-30.9, 4-11 it y of adult adult 00:00: [address] 37 weeks 37 weeks Disease Active Unive rs gestation gestation 4-11 ity of of of 00:00: [place] 00 [facility] Chlamydia Chlamydia Disease Active Overview: Univers infection infection 2-19 Formattin i ty of during during 00:00: g of this [place] 00 note [facility] might be Branch different from the original. Pending MICHAEL -neg Gonorrhea Gonorrhea Disease Active Overview: Univers in in 2-19 Formattin ity of 00:00: g of this [...] of high-risk high-risk 00:[place] [facility] with with Branch insufficie insufficie nt nt care care Over Over Disease Active 2020- Univers weight weight 2-18 ity of 00:00: Medical Branch Multiparit Multiparit Disease Active 2020-0 U nivers y y 2-18 ity of 00:00: Medical Branch History of History of Disease Active 2020-0 Overview : Univers bipolar bipolar 2-18 Formattin ity o f disorder disorder 00:00: g of this [place] as note Medical might be Branch different from the original. Not on meds x1 year History of History of Disease Active 20200 Overview : Univers depression depression 2-18 Formattin [...] 2-18 it y of adult adult 00:00: Medical Branch Allergies, Adverse Reactions, Alerts Allergy Allergy Status Severity Reaction(s) Onset Inactive Treating Comm ents Source Name Type Date Date Clinician Bee Propensi Active Anaphylaxis Uni vers Sting / ty to 2-18 ity of [place] adverse 00:00: [place] reaction 00 Medical s Branch BEE DRUG Active Anaphylaxis Unive rs STING / INGREDI 2-18 ity of VENOM 00:00: [place] 00 Medical Branch CASEIN DRUG Active Other-Cmnt Univer s INGREDI 2-11 ity of 00:00: [place] [facility] Casein Propensi Active Other - See Uni vers ty to comments 2-11 ity of adverse 00:00: [place] reaction 00 Medical s Branch Milk Propensi Active Other - See Uni vers ty to comments 5- ity of adverse 00:00: [place] reaction 00 Medical s to Branch drug Soy Propensi Active Unknown - Unive rs ty to See comments 01-02 ity of adverse 00:00: [place] reaction 00 Medical s to Branch drug MILK DRUG Active Other-Cmnt Univer s INGREDI - ity of 00:00: [place] 00 Medical Branch SOY DRUG Active Unknown-Cmnt Univ ers INGREDI 01-02 ity of 00:00: [place] [facility] Social History Social Habit Start Date Stop Date Quantity Comments Source ASSERTION 2019-03-20 University of 00:00:00 [facility] Gender identity Universit y of [facility] Sexual orientation Univer sity of [facility] Alcohol intake 2023-04-03 2023-04-03 Ex-drinker [facility] of 00:00:00 00:00:00 (finding) [facility] History of Social 2022-11-14 2022-11-14 Univers ity of function 00:00:00 00:00:00 [facility] Exposure to 2022-10-31 2022-11-10 Not sure University of SARS-CoV-2 (event) 00:00:00 12:18:00 [facility] Tobacco use and 2022-11-10 2022-11-10 Smokeless Universit y of exposure 00:00:00 00:00:00 tobacco non-user [facility] Education 2019-11-22 2019-11-22 11 University of 00:00:00 00:00:00 [facility] Tobacco Comment 2013-06-10 2013-06-10 mom smokes Universit y of 00:00:00 00:00:00 outside [facility] Sex Assigned At [birth year] Universit y of 00:00:00 00:00:00 [facility] Smoking Status Start Date Stop Date Source Never smoked tobacco [facility] Medications Ordered Filled Start Stop Current Ordering Indication Dosage Frequency Signature Comments Components Source Medication Medication Date Date Medication? Clinician (SIG) Name Name doxycycline No [id number] 100mg Take 1 Univers monohydrate 11-16-14 capsule by i ty of 100 mg 00:00: 04:59 mouth in [place] capsule 00 :00 the Medical morning Branch and 1 capsule in the evening. Do all this for 7 days. doxycycline No [id number] 100mg Take 1 Univers monohydrate 11-16-14 capsule by i ty of 100 mg 00:00: 04:59 mouth in [place] capsule 00 :00 the Medical morning Branch and 1 capsule in the evening. Do all this for 7 days. doxycycline No [id number] 100mg Take 1 Univers monohydrate 11-16-14 capsule by i ty of 100 mg 00:00: 04:59 mouth in [place] capsule 00 :00 the Medical morning Branch and 1 capsule in the evening. Do all this for 7 days. doxycycline No [id number] 100mg Take 1 Univers monohydrate 11-1614 capsule by i ty of 100 mg 00:00: 04:59 mouth in [place] capsule 00 :00 the Medical morning Branch and 1 capsule in the evening. Do all this for 7 days. levonorgest 2022- No [id number] 1{devic Univers reL 11-15 e} ity of (MIRENA) 21:45: 20:46 [place] IUD 1 00 :00 [employer] Branch levonorgest 2022- No [id number] 1{devic 1 Device, Univers reL 11-15 e} Intrauteri ity of (MIRENA) 21:45: 20:46 ne, ONCE, [place] IUD 1 00 :00 1 dose, On Dem[employer]anner 11/15/22 Branch at 1645, Routine levonorgest 2022- No [id number] 1{devic Univers reL 4-05 04-05 e} ity of (MIRENA) 21:45: 20:46 [place] IUD 1 00 :00 [employer] Branch levonorgest 2022- No [id number] 1{devic 1 Device, Univers reL 4-05 04-05 e} Intrauteri ity of (MIRENA) 21:45: 20:46 ne, ONCE, [place] IUD 1 00 :00 1 dose, On Dem[employer]anner 11/15/22 Branch at 1645, Routine miSOPROStoL Yes [id number] Take 1 Univers 200 mcg 4-04 tablet, by ity of tablet 00:00: mouth, at [place] 00 bedtime Medical the night Branch before IUD insertion procedure. Repeat dose at 0700 am on the morning of IUD insertion for cervical softening; not for abortive purposes. miSOPROStoL Yes [id number] Take 1 Univers 200 mcg 4-04 tablet, by ity of tablet 00:00: mouth, at [place] 00 bedtime Medical the night Branch before IUD insertion procedure. Repeat dose at 0700 am on the morning of IUD insertion for cervical softening; not for abortive purposes. miSOPROStoL 2022- No [id number] Take 1 Univers 200 mcg 4-04 04-05 tablet, by ity o f tablet 00:00: 00:00 mouth, at [place] 00 :00 bedtime Medical the night Branch before IUD insertion procedure. Repeat dose at 0700 am on the morning of IUD insertion for cervical softening; not for abortive purposes. miSOPROStoL 2022- No [id number] Take 1 Univers 200 mcg 4-04 04-05 tablet, by ity o f tablet 00:00: 00:00 mouth, at [place] 00 :00 bedtime Medical the night Branch before IUD insertion procedure. Repeat dose at 0700 am on the morning of IUD insertion for cervical softening; not for abortive purposes. etonogestre 2019- No [id number] 68mg Univers l 5-27 05-27 ity of (NEXPLANON) 16:00: 14:55 [place] implant 68 00 :00 Medical mg Branch etonogestre 2019- No [id number] 68mg 68 mg, Univers l 5-27 05-27 Subdermal, ity of (NEXPLANON) 16:00: 14:55 ONCE NOW, [place] implant 68 00 :00 1 dose, Medica l mg [facility] 01/07/20 at 1100, Routine
Use approved by: REFERENCE ASSISTANT etonogestre 2020- No [id number] 68mg Univers l 01-06 ity of (NEXPLANON) 16:00: 14:55 [place] implant 68 00 :00 Medical [facility] etonogestre 2019- No [id number] 68mg 68 mg, Univers l 01-06 Subdermal, ity of (NEXPLANON) 16:00: 14:55 ONCE NOW, [place] implant 68 00 :00 1 dose, Medica l mg [facility] 01/07/20 at 1100, Routine
Use approved by: REFERENCE ASSISTANT lisdexamfet 2019- No 50mg Take 50 mg Univers amine 11-2212 by mouth ity of (VYVANSE) 12:42: 00:00 every [place] 50 mg 10 :00 morning. Medical capsule [facility] ARIPiprazol 2020- No 2mg Take 2 mg Univers e (ABILIFY) 11-2212 by mouth ity of 2 mg tablet 12:42: 00:00 daily. [place] as 10 :00 Medical [facility] human 2019- Yes .5mL 0.5 mL, Univers papillomav 11-22 Intramuscu ity of vac,9-migel(P 12:26: [facility], [place] F) 12 ONCE-PRIOR Medical (GARDASIL-9 TO [facility] ) syringe DISCHARGE, 0.5 mL 1 dose, Starting 11/23/19 at 0726, Until Discontinu ed, Routine, Give vaccine prior to discharge varicella 2019- 2020- No .5mL 0.5 mL, Univ ers virus 11-2213 Subcutaneo ity of vaccine 12:26: 16:35 , [place] live 12 :00 ONCE-PRIOR Medical (VARIVAX TO [facility] (PF)) DISCHARGE, injection 1 dose, 0.5 mL Starting 11/23/19 at 0726, Until Discontinu ed, Routine, Give vaccine prior to discharge rho(D) 2019- Yes 300ug 300 mcg, Univer s immune -12 Intramuscu ity of globulin 03:56: lar, ONCE, [...] at 1912, Routine, Analgesia Recovery 2019-0 Yes [id number] 1{tbl} Take 1 Univers vitamin 4-12 tablet by ity of w/FA tablet 00:00: mouth [place] 00 daily. Medical Branch docusate 2020-0 Yes [id number] 240mg Take 1 U nivers calcium 240 4-12 capsule by it y of mg capsule 00:00: mouth once [place] daily as Medical needed for Branch Constipati on. ferrous 2020-0 Yes [id number] 325mg Take 1 Un dustin sulfate 325 4-12 tablet by ity of mg (65 mg 00:00: mouth 2 [place] iron) 00 (two) Medical tablet times Branch daily. ibuprofen 2020-0 Yes [id number] 600mg Take 1 Univers 600 mg 4-12 tablet by ity of tablet 00:00: mouth [place] 00 every 6 Medical (six) Branch hours as needed (Pain). Take with food or milk. 2020-0 Yes [id number] 1{tbl} Take 1 Univers vitamin 4-12 tablet by ity of w/FA tablet 00:00: mouth [place] 00 daily. Medical Branch docusate 2020-0 Yes [id number] 240mg Take 1 U nivers calcium 240 4-12 capsule by it y of mg capsule 00:00: mouth once [place] 00 daily as Medical needed for Branch Constipati on. ferrous 2020-0 Yes [id number] 325mg Take 1 Un dustin sulfate 325 4-12 tablet by ity of mg (65 mg 00:00: mouth 2 [place] iron) 00 (two) Medical tablet times Branch daily. ibuprofen 2020-0 Yes [id number] 600mg Take 1 Univers 600 mg 4-12 tablet by ity of tablet 00:00: mouth [place] 00 every 6 Medical (six) Branch hours as needed (Pain). Take with food or milk. 2020-0 Yes [id number] 1{tbl} Take 1 Univers vitamin 4-12 tablet by ity of w/FA tablet 00:00: mouth [place] 00 daily. Medical Branch docusate 2020-0 Yes [id number] 240mg Take 1 U nivers calcium 240 4-12 capsule by it y of mg capsule 00:00: mouth once [place] 00 daily as Medical needed for Branch Constipati on. ferrous 2020-0 Yes [id number] 325mg Take 1 Un dustin sulfate 325 4-12 tablet by ity of mg (65 mg 00:00: mouth 2 [place] iron) 00 (two) Medical tablet times Branch daily. ibuprofen 2020-0 Yes [id number] 600mg Take 1 Univers 600 mg 4-12 tablet by ity of tablet 00:00: mouth [place] 00 every 6 Medical (six) Branch hours as needed (Pain). Take with food or milk. 2020-0 Yes [id number] 1{tbl} Take 1 Univers vitamin 4-12 tablet by ity of w/FA tablet 00:00: mouth [place] 00 daily. Medical Branch docusate 2020-0 Yes [id number] 240mg Take 1 U nivers calcium 240 4-12 capsule by it y of mg capsule 00:00: mouth once [place] 00 daily as Medical needed for Branch Constipati on. ferrous 2020-0 Yes [id number] 325mg Take 1 Un dustin sulfate 325 4-12 tablet by ity of mg (65 mg 00:00: mouth 2 [place] iron) 00 (two) Medical tablet times Branch daily. ibuprofen 2020-0 Yes [id number] 600mg Take 1 Univers 600 mg 4-12 tablet by ity of tablet 00:00: mouth [place] 00 every 6 Medical (six) Branch hours as needed (Pain). Take with food or milk. 2020-0 Yes [id number] 1{tbl} Take 1 Univers vitamin 4-12 tablet by ity of w/FA tablet 00:00: mouth [place] 00 daily. Medical Branch docusate 2020-0 Yes [id number] 240mg Take 1 U nivers calcium 240 4-12 capsule by it y of mg capsule 00:00: mouth once [place] 00 daily as Medical needed for Branch Constipati on. ferrous 2020-0 Yes [id number] 325mg Take 1 Un dustin sulfate 325 4-12 tablet by ity of mg (65 mg 00:00: mouth 2 [place] iron) 00 (two) Medical tablet times Branch daily. ibuprofen 2020-0 Yes [id number] 600mg Take 1 Univers 600 mg 4-12 tablet by ity of tablet 00:00: mouth [place] 00 every 6 Medical (six) Branch hours as needed (Pain). Take with food or milk. 2020-0 Yes [id number] 1{tbl} Take 1 Univers vitamin 4-12 tablet by ity of w/FA tablet 00:00: mouth [place] 00 daily. Medical Branch docusate 2020-0 Yes [id number] 240mg Take 1 U nivers calcium 240 4-12 capsule by it y of mg capsule 00:00: mouth once [place] 00 daily as Medical needed for Branch Constipati on. ferrous 2020-0 Yes [id number] 325mg Take 1 Un dustin sulfate 325 4-12 tablet by ity of mg (65 mg 00:00: mouth 2 [place] iron) 00 (two) Medical tablet times Branch daily. ibuprofen 2020-0 Yes [id number] 600mg Take 1 Univers 600 mg 4-12 tablet by ity of tablet 00:00: mouth [place] 00 every 6 Medical (six) Branch hours as needed (Pain). Take with food or milk. 2020-0 Yes [id number] 1{tbl} Take 1 Univers vitamin 4-12 tablet by ity of w/FA tablet 00:00: mouth [place] 00 daily. Medical Branch docusate 2020-0 Yes [id number] 240mg Take 1 U nivers calcium 240 4-12 capsule by it y of mg capsule 00:00: mouth once [place] 00 daily as Medical needed for Branch Constipati on. ferrous 2020-0 Yes [id number] 325mg Take 1 Un dustin sulfate 325 4-12 tablet by ity of mg (65 mg 00:00: mouth 2 [place] iron) 00 (two) Medical tablet times Branch daily. ibuprofen 2020-0 Yes [id number] 600mg Take 1 Univers 600 mg 4-12 tablet by ity of tablet 00:00: mouth [place] 00 every 6 Medical (six) Branch hours as needed (Pain). Take with food or milk. 2020-0 Yes [id number] 1{tbl} Take 1 Univers vitamin 4-12 tablet by ity of w/FA tablet 00:00: mouth [place] 00 daily. Medical Branch docusate 2020-0 Yes [id number] 240mg Take 1 U nivers calcium 240 4-12 capsule by it y of mg capsule 00:00: mouth once [place] 00 daily as Medical needed for Branch Constipati on. ferrous 2020-0 Yes [id number] 325mg Take 1 Un dustin sulfate 325 4-12 tablet by ity of mg (65 mg 00:00: mouth 2 [place] iron) 00 (two) Medical tablet times Branch daily. ibuprofen 2020-0 Yes [id number] 600mg Take 1 Univers 600 mg 4-12 tablet by ity of tablet 00:00: mouth [place] 00 every 6 Medical (six) Branch hours as needed (Pain). Take with food or milk. 2020-0 Yes [id number] 1{tbl} Take 1 Univers vitamin 4-12 tablet by ity of w/FA tablet 00:00: mouth [place] 00 daily. Medical Branch docusate 2020-0 Yes [id number] 240mg Take 1 U nivers calcium 240 4-12 capsule by it y of mg capsule 00:00: mouth once [place] 00 daily as Medical needed for Branch Constipati on. ferrous 2020-0 Yes [id number] 325mg Take 1 Un dustin sulfate 325 4-12 tablet by ity of mg (65 mg 00:00: mouth 2 [place] iron) 00 (two) Medical tablet times Branch daily. ibuprofen 2020-0 Yes [id number] 600mg Take 1 Univers 600 mg 4-12 tablet by ity of tablet 00:00: mouth [place] 00 every 6 Medical (six) Branch hours as needed (Pain). Take with food or milk. 2020-0 Yes [id number] 1{tbl} Take 1 Univers vitamin 4-12 tablet by ity of w/FA tablet 00:00: mouth [place] 00 daily. Medical Branch docusate 2020-0 Yes [id number] 240mg Take 1 U nivers calcium 240 4-12 capsule by it y of mg capsule 00:00: mouth once [place] 00 daily as Medical needed for Branch Constipati on. ferrous 2020-0 Yes [id number] 325mg Take 1 Un dustin sulfate 325 4-12 tablet by ity of mg (65 mg 00:00: mouth 2 [place] iron) 00 (two) Medical tablet times Branch daily. ibuprofen 2020-0 Yes [id number] 600mg Take 1 Univers 600 mg 4-12 tablet by ity of tablet 00:00: mouth [place] 00 every 6 Medical (six) Branch hours as needed (Pain). Take with food or milk. 2020-0 Yes [id number] 1{tbl} Take 1 Univers vitamin 4-12 tablet by ity of w/FA tablet 00:00: mouth [place] 00 daily. Medical Branch docusate 2020-0 Yes [id number] 240mg Take 1 U nivers calcium 240 4-12 capsule by it y of mg capsule 00:00: mouth once [place] 00 daily as Medical needed for Branch Constipati on. ferrous 2020-0 Yes [id number] 325mg Take 1 Un dustin sulfate 325 4-12 tablet by ity of mg (65 mg 00:00: mouth 2 [place] iron) 00 (two) Medical tablet times Branch daily. ibuprofen 2020-0 Yes [id number] 600mg Take 1 Univers 600 mg 4-12 tablet by ity of tablet 00:00: mouth [place] 00 every 6 Medical (six) Branch hours as needed (Pain). Take with food or milk. 2020-0 Yes [id number] 1{tbl} Take 1 Univers vitamin 4-12 tablet by ity of w/FA tablet 00:00: mouth [place] 00 daily. Medical Branch docusate 2020-0 Yes [id number] 240mg Take 1 U nivers calcium 240 4-12 capsule by it y of mg capsule 00:00: mouth once [place] 00 daily as Medical needed for Branch Constipati on. ferrous 2020-0 Yes [id number] 325mg Take 1 Un dustin sulfate 325 4-12 tablet by ity of mg (65 mg 00:00: mouth 2 [place] iron) 00 (two) Medical tablet times Branch daily. ibuprofen 2020-0 Yes [id number] 600mg Take 1 Univers 600 mg 4-12 tablet by ity of tablet 00:00: mouth [place] 00 every 6 Medical (six) Branch hours as needed (Pain). Take with food or milk. 2020-0 Yes [id number] 1{tbl} Take 1 Univers vitamin 4-12 tablet by ity of w/FA tablet 00:00: mouth [place] 00 daily. Medical Branch docusate 2020-0 Yes [id number] 240mg Take 1 U nivers calcium 240 4-12 capsule by it y of mg capsule 00:00: mouth once [place] 00 daily as Medical needed for Branch Constipati on. ferrous 2020-0 Yes [id number] 325mg Take 1 Un dustin sulfate 325 4-12 tablet by ity of mg (65 mg 00:00: mouth 2 [place] iron) 00 (two) Medical tablet times Branch daily. ibuprofen 2020-0 Yes [id number] 600mg Take 1 Univers 600 mg 4-12 tablet by ity of tablet 00:00: mouth [place] 00 every 6 Medical (six) Branch hours as needed (Pain). Take with food or milk. 2020-0 Yes [id number] 1{tbl} Take 1 Univers vitamin 4-12 tablet by ity of w/FA tablet 00:00: mouth [place] 00 daily. Medical Branch docusate 2020-0 Yes [id number] 240mg Take 1 U nivers calcium 240 4-12 capsule by it y of mg capsule 00:00: mouth once [place] 00 daily as Medical needed for Branch Constipati on. ferrous 2020-0 Yes [id number] 325mg Take 1 Un dustin sulfate 325 4-12 tablet by ity of mg (65 mg 00:00: mouth 2 [place] iron) 00 (two) Medical tablet times Branch daily. ibuprofen 2020-0 Yes [id number] 600mg Take 1 Univers 600 mg 4-12 tablet by ity of tablet 00:00: mouth [place] 00 every 6 Medical (six) Branch hours as needed (Pain). Take with food or milk. 2020-0 Yes [id number] 1{tbl} Take 1 Univers vitamin 4-12 tablet by ity of w/FA tablet 00:00: mouth [place] 00 daily. Medical Branch docusate 2020-0 Yes [id number] 240mg Take 1 U nivers calcium 240 4-12 capsule by it y of mg capsule 00:00: mouth once [place] 00 daily as Medical needed for Branch Constipati on. ferrous 2020-0 Yes [id number] 325mg Take 1 Un dustin sulfate 325 4-12 tablet by ity of mg (65 mg 00:00: mouth 2 [place] iron) 00 (two) Medical tablet times Branch daily. ibuprofen 2020-0 Yes [id number] 600mg Take 1 Univers 600 mg 4-12 tablet by ity of tablet 00:00: mouth [place] 00 every 6 Medical (six) Branch hours as needed (Pain). Take with food or milk. 2020-0 Yes [id number] 1{tbl} Take 1 Univers vitamin 4-12 tablet by ity of w/FA tablet 00:00: mouth [place] 00 daily. Medical Branch docusate 2020-0 Yes [id number] 240mg Take 1 U nivers calcium 240 4-12 capsule by it y of mg capsule 00:00: mouth once [place] 00 daily as Medical needed for Branch Constipati on. ferrous 2020-0 Yes [id number] 325mg Take 1 Un dustin sulfate 325 4-12 tablet by ity of mg (65 mg 00:00: mouth 2 [place] iron) 00 (two) Medical tablet times Branch daily. ibuprofen 2020-0 Yes [id number] 600mg Take 1 Univers 600 mg 4-12 tablet by ity of tablet 00:00: mouth [place] 00 every 6 Medical (six) Branch hours as needed (Pain). Take with food or milk. 2020-0 Yes [id number] 1{tbl} Take 1 Univers vitamin 4-12 tablet by ity of w/FA tablet 00:00: mouth [place] 00 daily. Medical Branch docusate 2020-0 Yes [id number] 240mg Take 1 U nivers calcium 240 4-12 capsule by it y of mg capsule 00:00: mouth once [place] 00 daily as Medical needed for Branch Constipati on. ferrous 2020-0 Yes [id number] 325mg Take 1 Un dustin sulfate 325 4-12 tablet by ity of mg (65 mg 00:00: mouth 2 [place] iron) 00 (two) Medical tablet times Branch daily. ibuprofen 2020-0 Yes [id number] 600mg Take 1 Univers 600 mg 4-12 tablet by ity of tablet 00:00: mouth [place] 00 every 6 Medical (six) Branch hours as needed (Pain). Take with food or milk. 2020-0 Yes [id number] 1{tbl} Take 1 Univers vitamin 4-12 tablet by ity of w/FA tablet 00:00: mouth [place] 00 daily. Medical Branch docusate 2020-0 Yes [id number] 240mg Take 1 U nivers calcium 240 4-12 capsule by it y of mg capsule 00:00: mouth once [place] 00 daily as Medical needed for Branch Constipati on. ferrous 2020-0 Yes [id number] 325mg Take 1 Un dustin sulfate 325 4-12 tablet by ity of mg (65 mg 00:00: mouth 2 [place] iron) 00 (two) Medical tablet times Branch daily. ibuprofen 2020-0 Yes [id number] 600mg Take 1 Univers 600 mg 4-12 tablet by ity of tablet 00:00: mouth [place] 00 every 6 Medical (six) Branch hours as needed (Pain). Take with food or milk. 2020-0 Yes [id number] 1{tbl} Take 1 Univers vitamin 4-12 tablet by ity of w/FA tablet 00:00: mouth [place] 00 daily. Medical Branch docusate 2020-0 Yes [id number] 240mg Take 1 U nivers calcium 240 4-12 capsule by it y of mg capsule 00:00: mouth once [place] 00 daily as Medical needed for Branch Constipati on. ferrous 2020-0 Yes [id number] 325mg Take 1 Un dustin sulfate 325 4-12 tablet by ity of mg (65 mg 00:00: mouth 2 [place] iron) 00 (two) Medical tablet times Branch daily. ibuprofen 2020-0 Yes [id number] 600mg Take 1 Univers 600 mg 4-12 tablet by ity of tablet 00:00: mouth [place] 00 every 6 Medical (six) Branch hours as needed (Pain). Take with food or milk. 2020-0 Yes [id number] 1{tbl} Take 1 Univers vitamin 4-12 tablet by ity of w/FA tablet 00:00: mouth [place] 00 daily. Medical Branch docusate 2020-0 Yes [id number] 240mg Take 1 U nivers calcium 240 4-12 capsule by it y of mg capsule 00:00: mouth once [place] 00 daily as Medical needed for Branch Constipati on. ferrous 2020-0 Yes [id number] 325mg Take 1 Un dustin sulfate 325 4-12 tablet by ity of mg (65 mg 00:00: mouth 2 [place] iron) 00 (two) Medical tablet times Branch daily. ibuprofen 2020-0 Yes [id number] 600mg Take 1 Univers 600 mg 4-12 tablet by ity of tablet 00:00: mouth [place] 00 every 6 Medical (six) Branch hours as needed (Pain). Take with food or milk. 2020-0 Yes [id number] 1{tbl} Take 1 Univers vitamin 4-12 tablet by ity of w/FA tablet 00:00: mouth [place] 00 daily. Medical Branch docusate 2020-0 Yes [id number] 240mg Take 1 U nivers calcium 240 4-12 capsule by it y of mg capsule 00:00: mouth once [place] 00 daily as Medical needed for Branch Constipati on. ferrous 2020-0 Yes [id number] 325mg Take 1 Un dustin sulfate 325 4-12 tablet by ity of mg (65 mg 00:00: mouth 2 [place] iron) 00 (two) Medical tablet times Branch daily. ibuprofen 2020-0 Yes [id number] 600mg Take 1 Univers 600 mg 4-12 tablet by ity of tablet 00:00: mouth [place] 00 every 6 Medical (six) Branch hours as needed (Pain). Take with food or milk. HYDROcodone 2019-0 2020- No [id number] 1{tbl} Take 1 Univers -acetaminop 4-12 04-20 tablet by it y of hen 5-325 00:00: 04:59 mouth [place] mg tablet 00 :00 every 6 Medical (six) Branch hours as needed (for pain) for up to 7 days. Do not exceed 3 grams of acetaminop hen in 24 hours. HYDROcodone 2019- 2020- No [id number] 1{tbl} Take 1 Univers -acetaminop 11-22 tablet by it y of hen 5-325 00:00: 04:59 mouth [place] mg tablet 00 :00 every 6 Medical (six) Branch hours as needed (for pain) for up to 7 days. Do not exceed 3 grams of acetaminop hen in 24 hours. lactated 2019- 2020- No 1000mL at 125 Univ ers ringers IV 11-21-12 mL/hr, ity of infusion 23:00: 03:56 1,000 mL, Juan as 1,000 mL 00 :36 IV Medical Infusion, Branch CONTINUOUS , Starting 11/22/19 at 1800, Until 11/22/19 at 2256, Routine sodium 2019-2019- No 30mL 30 mL, Univers citrate-cit 11-21 [...] Surgical Prophylaxi s
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
Duration of therapy: within 24 hours of surgery lactated 2019-0 2020- No 500mL at 999 Unive rs ringers IV 11-21-11 mL/hr, 500 it y of infusion 20:00: 20:40 mL, IV [place] 500 mL 00 :00 Infusion, Medical ONCE, 1 Branch dose, 11/22/19 at 1500, Routine D5W-LR IV 2019- No 1000mL at 125 Uni vers infusion 4-11 04-12 mL/hr, IV ity o f 1,000 [...] 1627, Routine, Surgery/Pr ocedure LR 1000 mL 2019- No 2mU/min 2-40 Uni vers + oxytocin [...] [place] (RIGHT STEP [address] [facility] Branch VITAMINS) 27 mg iron- 0.8 mg per tablet ferrous 0 Yes 325mg Take 1 Univers sulfate 325 3-02 tablet by ity of mg (65 mg 00:00: mouth [place] iron) 00 daily. Medical tablet Branch 2020- No 1{tbl} Take 1 Univ ers Vit-Iron 3-02 04-12 tablet by ity o f Fumarate-FA 00:00: 00[place]00 [place] (RIGHT STEP 00 :00 daily. Medica l [facility] VITAMINS) 27 mg iron- 0.8 mg per tablet ferrous 2019- No 325mg Take 1 Univer s sulfate 325 3-02 04-12 tablet by it y of mg (65 mg 00:00: 00:00 mouth [place] iron) 00 :00 daily. Medical tablet Branch cefTRIAXone 2020- No 250mg Univ ers (ROCEPHIN) 10-02 ity [...] Other (see Comments) azithromyci 2020-0 2020- No [id number] 1000mg Take 2 Univers n 500 mg 2-19 02-20 tablets by ity of tablet 00:00: 05:59 [place] :[place] now for 1 Medical dose. Branch azithromyci 2020-0 2020- No [id number] 1000mg Take 2 Univers n 500 mg 2-19 02-20 tablets by ity of tablet 00:00: 05:59 [place] 00 :[place] now for 1 Medical dose. Branch ARIPiprazol 2020-0 Yes 2mg Take 2 mg U nivers e (ABILIFY) 2-18 by mouth ity of 2 mg tablet 19:58: daily. [facility] Medical Branch lisdexamfet 2020-0 Yes 50mg Take 50 mg Univers amine 2-18 by mouth ity of (VYVANSE) 19:58: every [place] 50 mg 26 morning. Medical capsule Branch ARIPiprazol 2019-0 Yes 2mg Take 2 mg U nivers e (ABILIFY) 2-18 by mouth ity of 2 mg tablet 19:58: daily. [facility] Medical Branch lisdexamfet 2019-0 Yes 50mg Take 50 mg Univers amine 2-18 by mouth ity of (VYVANSE) 19:58: every [place] 50 mg 26 morning. Medical capsule Branch ARIPiprazol 2020-0 Yes 2mg Take 2 mg U nivers e (ABILIFY) 2-18 by mouth ity of 2 mg tablet 19:58: daily. [place] [address] Medical Branch lisdexamfet 2020-0 Yes 50mg Take 50 mg Univers amine 2-18 by mouth ity of (VYVANSE) 19:58: every [place] 50 mg 26 morning. Medical capsule Branch ARIPiprazol 2020-0 Yes 2mg Take 2 mg U nivers e (ABILIFY) 2-18 by mouth ity of 2 mg tablet 19:58: daily. [facility] Medical Branch lisdexamfet 2020-0 Yes 50mg Take 50 mg Univers amine 2-18 by mouth ity of (VYVANSE) 19:58: every [place] 50 mg 26 morning. Medical capsule Branch ARIPiprazol 2020-0 Yes 2mg Take 2 mg U nivers e (ABILIFY) 2-18 by mouth ity of 2 mg tablet 19:58: daily. [place] [address] Medical Branch lisdexamfet 2020-0 Yes 50mg Take 50 mg Univers amine 2-18 by mouth ity of (VYVANSE) 19:58: every [place] 50 mg 26 morning. Medical capsule Branch ARIPiprazol 2020-0 Yes 2mg Take 2 mg U nivers e (ABILIFY) 2-18 by mouth ity of 2 mg tablet 19:58: daily. [place] [address] Medical Branch lisdexamfet 2020-0 Yes 50mg Take 50 mg Univers amine 2-18 by mouth ity of (VYVANSE) 19:58: every [place] 50 mg 26 morning. Medical capsule Branch ARIPiprazol 2020-0 Yes 2mg Take 2 mg U nivers e (ABILIFY) 2-18 by mouth ity of 2 mg tablet 19:58: daily. [address] Branch lisdexamfet 2020-0 Yes 50mg Take 50 mg Univers amine 2-18 by mouth ity of (VYVANSE) 19:58: every [place] 50 mg 26 morning. Medical capsule Branch ARIPiprazol 2020-0 Yes 2mg Take 2 mg U nivers e (ABILIFY) 2-18 by mouth ity of 2 mg tablet 19:58: daily. [address] Branch lisdexamfet 2020-0 Yes 50mg Take 50 mg Univers amine 2-18 by mouth ity of (VYVANSE) 19:58: every [place] 50 mg 26 morning. Medical capsule Branch ARIPiprazol 2020-0 Yes 2mg Take 2 mg U nivers e (ABILIFY) 2-18 by mouth ity of 2 mg tablet 19:58: daily. [address] Branch lisdexamfet 2020-0 Yes 50mg Take 50 mg Univers amine 2-18 by mouth ity of (VYVANSE) 19:58: every [place] 50 mg 26 morning. Medical capsule Branch ARIPiprazol 2020-0 Yes 2mg Take 2 mg U nivers e (ABILIFY) 2-18 by mouth ity of 2 mg tablet 19:58: daily. [address] Branch lisdexamfet 2020-0 Yes 50mg Take 50 mg Univers amine 2-18 by mouth ity of (VYVANSE) 19:58: every [place] 50 mg 26 morning. Medical capsule Branch ARIPiprazol 2020-0 Yes 2mg Take 2 mg U nivers e (ABILIFY) 2-18 by mouth ity of 2 mg tablet 19:58: daily. [place] [address] Medical Branch lisdexamfet 2020-0 Yes 50mg Take 50 mg Univers amine 2-18 by mouth ity of (VYVANSE) 19:58: every [place] 50 mg 26 morning. Medical capsule Branch ARIPiprazol 2020-0 Yes 2mg Take 2 mg U nivers e (ABILIFY) 2-18 by mouth ity of 2 mg tablet 19:58: daily. [address] Branch lisdexamfet 2020-0 Yes 50mg Take 50 mg Univers amine 2-18 by mouth ity of (VYVANSE) 19:58: every [place] 50 mg 26 morning. Medical capsule Branch ARIPiprazol 2020-0 Yes 2mg Take 2 mg U nivers e (ABILIFY) 2-18 by mouth ity of 2 mg tablet 19:58: daily. [address] Branch lisdexamfet 2020-0 Yes 50mg Take 50 mg Univers amine 2-18 by mouth ity of (VYVANSE) 19:58: every [place] 50 mg 26 morning. Medical capsule Branch ARIPiprazol 2020-0 Yes 2mg Take 2 mg U nivers e (ABILIFY) 2-18 by mouth ity of 2 mg tablet 19:58: daily. [address] Branch lisdexamfet 2020-0 Yes 50mg Take 50 mg Univers amine 2-18 by mouth ity of (VYVANSE) 19:58: every [place] 50 mg 26 morning. Medical capsule Branch ARIPiprazol 2020-0 Yes 2mg Take 2 mg U nivers e (ABILIFY) 2-18 by mouth ity of 2 mg tablet 19:58: daily. [address] Branch lisdexamfet 2020-0 Yes 50mg Take 50 mg Univers amine 2-18 by mouth ity of (VYVANSE) 19:58: every [place] 50 mg 26 morning. Medical capsule Branch ARIPiprazol 2020-0 Yes 2mg Take 2 mg U nivers e (ABILIFY) 2-18 by mouth ity of 2 mg tablet 19:58: daily. [place] [address] Medical Branch lisdexamfet 2019-0 Yes 50mg Take 50 mg Univers amine 2-18 by mouth ity of (VYVANSE) 19:58: every [place] 50 mg 26 morning. Medical capsule Branch ARIPiprazol 2019-0 Yes 2mg Take 2 mg U nivers e (ABILIFY) 2-18 by mouth ity of 2 mg tablet 19:58: daily. [place] [address] Medical Branch lisdexamfet 2019-0 Yes 50mg Take 50 mg Univers amine 2-18 by mouth ity of (VYVANSE) 19:58: every [place] 50 mg 26 morning. Medical capsule Branch ARIPiprazol 2019-0 Yes 2mg Take 2 mg U nivers e (ABILIFY) 2-18 by mouth ity of 2 mg tablet 19:58: daily. [address] Branch lisdexamfet 2019-0 Yes 50mg Take 50 mg Univers amine 2-18 by mouth ity of (VYVANSE) 19:58: every [place] 50 mg 26 morning. Medical capsule Branch ARIPiprazol 2019-0 Yes 2mg Take 2 mg U nivers e (ABILIFY) 2-18 by mouth ity of 2 mg tablet 19:58: daily. [place] [address] Medical Branch lisdexamfet 2019-0 Yes 50mg Take 50 mg Univers amine 2-18 by mouth ity of (VYVANSE) 19:58: every [place] 50 mg 26 morning. Medical capsule Branch ARIPiprazol 2019-0 Yes 2mg Take 2 mg U nivers e (ABILIFY) 2-18 by mouth ity of 2 mg tablet 19:58: daily. [place] [address] Medical Branch lisdexamfet 2019-0 Yes 50mg Take [...] [place]. [place] Somatropin 2014-0 Yes [id number] 3mg inject 3 Univers (NORDITROPI 5-05 mg under ity of N FLEXPRO) 00:00: the skin Juan as 15 mg/1.5 00 daily. Medical mL (10 Branch mg/mL) PnIj Somatropin 2014-0 Yes [id number] 3mg inject 3 Univers (NORDITROPI 5-05 mg under ity of N FLEXPRO) 00:00: the skin [place] as 15 mg/1.5 00 daily. Medical mL (10 Branch mg/mL) PnIj Somatropin 2014-0 Yes [id number] 3mg inject 3 Univers (NORDITROPI 5-05 mg under ity of N FLEXPRO) 00:00: the skin [place] as 15 mg/1.5 00 daily. Medical mL (10 Branch mg/mL) PnIj Somatropin 2014-0 Yes [id number] 3mg inject 3 Univers (NORDITROPI 5-05 mg under ity of N FLEXPRO) 00:00: the skin [place] as 15 mg/1.5 00 daily. Medical mL (10 Branch mg/mL) PnIj Somatropin 2014-0 Yes [id number] 3mg inject 3 Univers (NORDITROPI 5-05 mg under ity of N FLEXPRO) 00:00: the skin [place] as 15 mg/1.5 00 daily. Medical mL (10 Branch mg/mL) PnIj Somatropin 2014-0 Yes [id number] 3mg inject 3 Univers (NORDITROPI 5-05 mg under ity of N FLEXPRO) 00:00: the skin [place] as 15 mg/1.5 00 daily. Medical mL (10 Branch mg/mL) PnIj Somatropin 2014-0 Yes [id number] 3mg inject 3 Univers (NORDITROPI 5-05 mg under ity of N FLEXPRO) 00:00: the skin [place] as 15 mg/1.5 00 daily. Medical mL (10 Branch mg/mL) PnIj Somatropin 2014-0 Yes [id number] 3mg inject 3 Univers (NORDITROPI 5-05 mg under ity of N FLEXPRO) 00:00: the skin [place] as 15 mg/1.5 00 daily. Medical mL (10 Branch mg/mL) PnIj Somatropin 2014-0 Yes [id number] 3mg inject 3 Univers (NORDITROPI 5-05 mg under ity of N FLEXPRO) 00:00: the skin [place] as 15 mg/1.5 00 daily. Medical mL (10 Branch mg/mL) PnIj Somatropin 0 Yes [id number] 3mg inject 3 Univers (NORDITROPI 5-05 mg under ity of N FLEXPRO) 00:00: the skin [place] as 15 mg/1.5 00 daily. Medical mL (10 Branch mg/mL) PnIj Somatropin 2014- Yes [id number] 3mg inject 3 Univers (NORDITROPI 5-05 mg under ity of N FLEXPRO) 00:00: the skin [place] as 15 mg/1.5 00 daily. Medical mL (10 Branch mg/mL) PnIj Somatropin Yes [id number] 3mg inject 3 Univers (NORDITROPI 5-05 mg under ity of N FLEXPRO) 00:00: the skin [place] as 15 mg/1.5 00 daily. Medical mL (10 Branch mg/mL) PnIj Somatropin Yes [id number] 3mg inject 3 Univers (NORDITROPI 5-05 mg under ity of N FLEXPRO) 00:00: the skin [place] as 15 mg/1.5 00 daily. Medical mL (10 Branch mg/mL) PnIj Somatropin Yes [id number] 3mg inject 3 Univers (NORDITROPI 5-05 mg under ity of N FLEXPRO) 00:00: the skin [place] as 15 mg/1.5 00 daily. Medical mL (10 Branch mg/mL) PnIj Somatropin Yes [id number] 3mg inject 3 Univers (NORDITROPI 5-05 mg under ity of N FLEXPRO) 00:00: the skin [place] as 15 mg/1.5 00 daily. Medical mL (10 Branch mg/mL) PnIj Somatropin 2014-0 Yes [id number] 3mg inject 3 Univers (NORDITROPI 5-05 mg under ity of N FLEXPRO) 00:00: the skin [place] as 15 mg/1.5 00 daily. Medical mL (10 Branch mg/mL) PnIj Somatropin 2014- Yes [id number] 3mg inject 3 Univers (NORDITROPI 5-05 mg under ity of N FLEXPRO) 00:00: the skin [place] as 15 mg/1.5 00 daily. Medical mL (10 Branch mg/mL) PnIj Somatropin Yes [id number] 3mg inject 3 Univers (NORDITROPI 5-05 mg under ity of N FLEXPRO) 00:00: the skin [place] as 15 mg/1.5 00 daily. Medical mL (10 Branch mg/mL) PnIj Somatropin 2014- Yes [id number] 3mg inject 3 Univers (NORDITROPI 5-05 mg under ity of N FLEXPRO) 00:00: the skin [place] as 15 mg/1.5 00 daily. Medical mL (10 Branch mg/mL) PnIj Somatropin 2014- Yes [id number] 3mg inject 3 Univers (NORDITROPI 5-05 mg under ity of N FLEXPRO) 00:00: the skin [place] as 15 mg/1.5 00 daily. Medical mL (10 Branch mg/mL) PnIj Somatropin 2014- Yes [id number] 3mg inject 3 Univers (NORDITROPI 5-05 mg under ity of N FLEXPRO) 00:00: the skin [place] as 15 mg/1.5 00 daily. Medical mL (10 Branch mg/mL) PnIj Somatropin 2020- No [id number] 3mg inject 3 Univers (NORDITROPI 5-05 04-12 [...] 300-30 00 :00 Medical mg tablet Branch Vital Signs Vital Name Observation Time Observation Value Comments Source Systolic blood 2023-03-29 21:32:00 108 mm[Hg] Univer sity of pressure [facility] Diastolic blood 2023-03-29 21:32:00 70 mm[Hg] Unive rsity of pressure [facility] Heart rate 2023-03-29 21:32:00 73 /min [facility] Respiratory rate 2023-03-29 21:32:00 18 /min [facility] Body height 2023-03-29 21:32:00 152.4 cm [facility] Body weight 2023-03-29 21:32:00 69.4 kg [facility] BMI 2023-03-29 21:32:00 29.88 kg/m2 [facility] Systolic blood 2022-11-15 19:38:00 109 mm[Hg] Univer sity of pressure [facility] Diastolic blood 2022-11-15 19:38:00 70 mm[Hg] Unive rsity of pressure [facility] Heart rate 2022-11-15 19:38:00 87 /min [facility] Respiratory rate 2022-11-15 19:38:00 16 /min [facility] 2022-11-15 19:38:00 152.4 cm [facility] [place] [facility] Body weight 2022-11-15 19:38:00 69.854 kg [facility] [place] [facility] BMI 2022-11-15 19:38:00 30.08 kg/m2 [facility] [place] [facility] Oxygen saturation in 2022-11-15 19:38:00 98 /min University of Arterial blood by [place] TATE'S LIST ashley Pulse oximetry Branch Systolic blood 2022-11-14 19:57:00 104 mm[Hg] Univer sity of pressure [place] [facility] Diastolic blood 2022-11-14 19:57:00 53 mm[Hg] Unive rsity of pressure [place] [facility] Heart rate 2022-11-14 19:57:00 84 /min [facility] [place] [facility] Respiratory rate 2022-11-14 19:57:00 18 /min Univ ersity of [place] [facility] Body height 2022-11-14 19:57:00 152.4 cm [facility] [place] [facility] Body weight 2022-11-14 19:57:00 69.4 kg [facility] [place] [facility] BMI 2022-11-14 19:57:00 29.88 kg/m2 [facility] [place] [facility] Systolic blood 2022-11-10 17:40:00 107 mm[Hg] Univer sity of pressure [place] [facility] Diastolic blood 2022-11-10 17:40:00 68 mm[Hg] Unive rsity of pressure [place] [facility] Heart rate 2022-11-10 17:40:00 77 /min [facility] [place] [facility] Respiratory rate 2022-11-10 17:40:00 16 /min Univ ersity [facility] [place] [facility] Body height 2022-11-10 17:40:00 152.4 cm [facility] [place] [facility] Body weight 2022-11-10 17:40:00 68.72 kg [facility] [place] [facility] BMI 2022-11-10 17:40:00 29.59 kg/m2 [facility] [place] [facility] Oxygen saturation in 2022-11-10 17:40:00 98 /min University of Arterial blood by [place] TATE'S LIST ashley Pulse oximetry Branch Systolic blood 2020-01-07 14:30:00 108 mm[Hg] Univer sity of pressure [place] [facility] Diastolic blood 2020-01-07 14:30:00 67 mm[Hg] Unive rsity of pressure [place] [facility] Heart rate 2020-01-07 14:30:00 66 /min [facility] [place] [facility] Body temperature 2020-01-07 14:30:00 36.56 [place] Univ ersity [facility] [place] [facility] Respiratory rate 2020-01-07 14:30:00 16 /min Univ ersity [facility] [place] [facility] Body height 2020-01-07 14:30:00 152.4 cm [facility] [place] [facility] Body weight 2020-01-07 14:30:00 68.55 kg [facility] [place] [facility] BMI 2020-01-07 14:30:00 29.51 kg/m2 [facility] [place] [facility] Systolic blood 2019-11-28 20:21:00 112 mm[Hg] Univer sity of pressure [place] [facility] Diastolic blood 2019-11-28 20:21:00 77 mm[Hg] Unive rsity of pressure [place] [facility] Heart rate 2019-11-28 20:21:00 83 [...] ty of [place] [facility] Systolic blood 2019-11-28 20:21:00 112 mm[Hg] Univer sity of pressure [place] [facility] Diastolic blood 2019-11-28 20:21:00 77 mm[Hg] Unive rsity of pressure [place] [facility] Heart rate 2019-11-28 20:21:00 83 [...] 100 /min University of Arterial blood by [place] [facility] ashley Pulse oximetry Branch Body height 2019-11-22 [...] /min University of Arterial blood by [place] TATE'S LIST ashley Pulse oximetry Branch Body height 2019-11-22 17:18:00 152.4 cm [facility] [place] [facility] Body weight 2019-11-22 17:18:00 72.122 kg [facility] [place] [facility] BMI 2019-11-22 17:18:00 31.05 kg/m2 [facility] [place] [facility] Systolic blood 2019-11-18 13:42:00 124 mm[Hg] Univer sity of pressure [place] [facility] Diastolic blood 2019-11-18 13:42:00 70 mm[Hg] Unive rsity of pressure [place] [facility] Heart rate 2019-11-18 13:42:00 79 /min [facility] [place] [facility] Body temperature 2019-11-18 13:42:00 36.17 [place] Univ ersity [facility] [place] [facility] Respiratory rate 2019-11-18 13:42:00 16 /min Univ ersity [facility] [place] [facility] Body height 2019-11-18 13:42:00 152.4 cm [facility] [place] [facility] Body weight 2019-11-18 13:42:00 73.057 kg [facility] [place] [facility] BMI 2019-11-18 13:42:00 31.46 kg/m2 [facility] [place] [facility] Systolic blood 2019-11-18 13:42:00 124 mm[Hg] Univer sity of pressure [place] [facility] Diastolic blood 2019-11-18 13:42:00 70 mm[Hg] Unive rsity of pressure [place] [facility] Heart rate 2019-11-18 13:42:00 79 /min [facility] [place] [facility] Body temperature 2019-11-18 13:42:00 36.17 [place] Univ ersity [facility] [place] [facility] Respiratory rate 2019-11-18 13:42:00 16 /min Univ ers[facility] [place] [facility] Body height 2019-11-18 13:42:00 152.4 cm [facility] [place] [facility] Body weight 2019-11-18 13:42:00 73.057 kg [facility] [place] [facility] BMI 2019-11-18 13:42:00 31.46 kg/m2 [facility] [place] [facility] [...] 2019-09-30 19:43:00 16 /min Univ ersity [facility] [place] [facility] Body height 2019-09-30 19:43:00 152.4 cm [facility] [place] [facility] Body weight 2019-09-30 19:43:00 67.189 kg [facility] [place] [facility] BMI 2019-09-30 19:43:00 28.93 kg/m2 [facility] [place] [facility] Procedures Procedure Date / Time Performing Clinician Source Performed INSURANCE CORRESPONDENCE 2022-11-21 05:01:00 Doctor Tiff, [facility] POCT TEST 2022-11-15 00:00:00 Ruddy Colbert [facility] ASSIGNMENT OF BENEFITS 2022-11-10 17:19:34 Doctor Unassazra, [facility] [place] POCT TEST 2020-01-07 14:33:00 Rashid Cha [facility] CONSENT FOR CONTRACEPTION 2020-01-07 05:01:00 Doctor Tiff, [facility] CBC WITH DIFFERENTIAL 2019-11-23 09:13:00 Reynold Jones [facility] ARTERIAL CORD GAS 2019-11-22 23:50:00 [facility] VENOUS CORD GAS 2019-11-22 23:49:00 [facility] SECTION 2019-11-22 23:00:00 Fidelia Billings [facility] HEPATITIS B SURFACE 2019-11-22 20:42:00 [facility] ANTIGEN [facility] GALV ONLY - SYPHILIS 2019-11-22 20:42:00 [facility] IGG/IGM [facility] HB ABO GROUPING 2019-11-22 20:02:00 [facility] RHO (D) IMMUNE GLOBULIN 2019-11-22 20:02:00 Reynold Jones [facility] CORONAVIRUS COVID-19 2019-11-22 17:09:00 [facility] PO[facility] URINALYSIS 2019-11-18 13:49:00 Carla Rajan [facility] POCT URINALYSIS 2019-11-11 14:00:00 Carla Rajan [facility] POCT URINALYSIS 2019-10-27 17:09:00 Carla Rajan [facility] AUTHORIZATION TO RELEASE 2019-10-09 06:01:00 Doctor Matthew, [facility] PHI TO [facility] TDAP VACCINE, >11 YRS, IM 2019-09-30 20:39:21 Carla Rajan [facility] FLU VACC ([id number]), 6+ 2019-09-30 20:22:55 Carla Rajan [facility] MONTHS, IM, QUAD [facility] POCT URINALYSIS W/O 2019-09-30 19:35:00 Carla Rajan [facility] [place] SPECIFIC GRAVITY [facility] POCT TEST 2019-09-30 19:34:00 Carla Rajan Uni versity of [facility] ASSIGNMENT OF BENEFITS 2019-09-30 19:11:56 [facility] [place] [facility] Encounters Start End Encounter Admission Attending Care Care Encounter Source Date/Time Date/Time Type Type Clinicians Facility Department ID 2021-06-09 Outpatient [facility] [id number] Univers 17:44:35 [facility] 2023-05-17 2023-05-17 Outpatient R RUDDY COLBERT [facility] B [id number] Univers 15:30:00 15:30:00 RUDDY COLBERT [facility] 2023-04-30 2023-04-30 Outpatient Bernabe TILLEY [facility] [id number] Univers 16:00:00 16:00:00 ERIN christie [facility] 2023-04-27 2023-04-27 Outpatient Bernabe TILLEY [facility] [id number] Univers 13:00:00 13:00:00 ERIN christie [facility] 2023-03-29 2023-03-29 Outpatient R RUDDY COLBERT [facility] B [id number] Univers 16:30:00 16:37:41 RUDDY COLBERT [facility] 2023-03-29 2023-03-29 Office Wesley GAJUAN [place] 1.2.840.114 [id number] Univers 16:30:00 16:37:41 Visit Ruddy BULLARD [id number] it y of WOMEN'S 4.2.7.2.686 [facility] [id number] [place] [address] Branch 2023-02-07 2023-02-07 Outpatient R RUDDY COLBERT [facility] B [id number] Univers 13:00:00 13:00:00 RUDDY COLBERT [place] [facility] 2022-12-13 2022-12-[address] [facility] [id number] 16:42:16 16:42:16 [id number] Gee 2022-12-13 2022-12-13 Outpatient R [facility] [id number] Univers 15:15:00 15:15:00 ity of [facility] 2022-11-22 2022-11-22 Telephone [facility] 1.2.840.114 [id number] Univers 00:00:00 00:00:00 Brittni BULLARD [id number] it [place] [facility] [id number] [address] 2022-11-21 2022-11-21 Orders Doctor MARTE 1.2.840.114 [id number] Univers 00:00:00 00:00:00 Only Unassigned, LU[place] 350.1.13.10 ity of [place] [facility] 4.2.7.2.686 Juan as [id number] [place] [address] Branch 2022-11-20 2022-11-20 Telephone [facility] 1.2.840.11 [id number] Univers 00:00:00 00:00:00 Ruddy BULLARD [id number] [place] [facility] [id number] [address] 2022-11-16 2022-11-16 Telephone [facility] 1.2.840.11 [id number] Univers 00:00:00 00:00:00 Ruddy BULLARD [id number] it y of WOMEN'S 4.2.7.2.686 [facility] [id number] [address] 2022-11-15 2022-11-15 Outpatient R RUDDY COLBERT [facility] B [id number] Univers 14:30:00 15:04:36 RUDDY COLBERT [facility] 2022-11-15 2022-11-15 Office [facility] 1.2.840.114 [id number] Univers 14:30:00 15:04:36 Visit Ruddy BULLARD [id number] it [place] [facility] [id number] [address] 2022-11-14 2022-11-14 Outpatient R CECI [facility] [id number] Univers 15:00:00 15:16:26 [facility] 2022-11-14 2022-11-14 Office [facility] 1.2.840.114 [id number] Univers 15:00:00 15:16:26 Visit Ruddy BULLARD 350.1.13.10 it [place] [facility] [id number] [address] 2022-11-10 2022-11-10 Outpatient R [facility] [id number] Univers 13:00:00 13:04:39 [facility] 2022-11-10 2022-11-10 Office [facility] 1.2.840.114 [id number] Univers 13:00:00 13:04:39 Visit Ruddy BULLARD 350.1.13.10 it [place] [id number] [address] 2022-11-10 2022-11-10 Orders Doctor ESTUARDO 1.2.840.114 [id number] Univers 00:00:00 00:00:00 Only Unassigned, [place] 350.1.13.10 ity of [place] [facility] 4.2.7.2.686 [place] as [id number] [place] [address] Branch 2020-11-02 2020-11-02 Patient Zander [facility] 1.2.840.114 [id number] 00 Univers 00:00:00 00:00:00 Outreach Declan BULLOCK 350.1.13.10 i ty of [facility] 4.2.7.2.686 [place]OD[place] [phone] [place] dical [address] 2020-01-07 2020-01-07 Office Cha, [facility] 1.2.840.114 [id number] Univers 09:23:30 10:10:21 Visit Rashid R REFERENCE ASSISTANT 350.1.13.10 ity of [facility] 4.2.7.2.686 Juan as MATERNAL [phone] Med ical & CHILD [address] [place] [address] 2020-01-07 2020-01-07 Outpatient R STARLA [facility] [id number] [facility] 09:00:00 09:00:00 RASHID christie o f [facility] 2020-01-07 2020-01-07 Orders Doctor ESTUARDO 1.2.840.114 [id number] Univers 00:00:00 00:00:00 Only Unassigned, LUKE 350.1.13.10 ity of [place] [facility] 4.2.7.2.686 Juan as [phone] [address] 2019-12-16 2019-12-16 Outpatient R STARLA [facility] [id number] [facility] 09:15:00 09:15:00 RASHID murrayjamaica o oscar [facility] 2019-12-16 2019-12-16 [facility] 1.2.840.114 [id number] Univers 07:34:01 09:03:14 ne Visit Rashid Bernabe REFERENCE ASSISTANT 350.1.13.10 ity of [facility] 4.2.7.2.686 Juan as MATERNAL [phone] [facility] & CHILD [address] [place] [address] 2019-12-16 2019-12-16 [facility] 1.2.840.114 [id number] 07:34:01 09:03:14 ne Visit Rashid R REFERENCE ASSISTANT 350.1.13.10 REG[facility]AL 4.2.7.2.686 MATERNAL [phone] & [address] 2019-11-28 2019-11-28 Nurse Visit, RebecaRmchp Nurse [facility] 1.2 .840.114 [id number] Univers 14:57:15 15:27:42 Visit Akinsipe, Carla C REFERENCE ASSISTANT 350.1.13. 10 ity of [facility] 4.2.7.2.686 Juan as MATERNAL [phone] [facility] & CHILD [address] [place] [address] 2019-11-28 2019-11-28 Nurse Visit, [facility] 1.2.840.114 [id number] 14:57:15 15:27:42 Visit [facility] REFERENCE ASSISTANT 350.1.13.10 Nurse [facility] 4.2.7.2.686 MATERNAL [phone] & CHILD [address] [place] [address] 2019-11-28 2019-11-28 Outpatient R AKINSIPE, [facility] [id number] Univers 15:00:00 15:00:[address] [facility] 2019-11-25 2019-11-25 Outpatient R AKINSIPE, [facility] [id number] Univers 09:30:00 09:30:[address] [facility] 2019-11-25 2019-11-25 Outpatient R AKINSIPE, [facility] [id number] Univers 09:15:00 09:15:[address] [facility] 2019-11-22 2019-11-24 [facility] [id number] [facility] 11:49:00 12:16:00 Encounter Fidelia LUKE 350.1.13.10 ity of [facility] 4.2.7.2.686 Juan as [id number] [address] 2019-11-22 2019-11-24 [facility] EST[facility] 1.2.294.615 [id number] 11:49:00 12:16:00 Encounter Fidelia [place] 350.1.13.10 HOSPITAL 4.2.7.2.686 [id number] 2019-11-18 2019-11-18 Routine Akinsipe, [facility] 1.2.538.992 [id number] Univers 08:34:45 08:55:27 Carla C REFERENCE ASSISTANT 350.1.13.10 ity of Visit [facility]AL 4.2.7.2.686 Juan as MATERNAL [phone] [facility] & CHILD [address] [place] [address] 2019-11-18 2019-11-18 Routine Akinsipe, [facility] [id number] 08:34:45 08:55:27 Carla C REFERENCE ASSISTANT 350.1.13.10 Visit REGIONAL 4.2.7.2.686 MATERNAL [phone] & CHILD [address] [facility] 2019-11-18 2019-11-18 Outpatient R AKINSIPE, [facility] [id number] Univers 08:45:00 08:45:00 CARLA ity o f [facility] 2019-11-11 2019-11-11 Routine Akinsipe, [facility] 1.2.754.494 [id number] Univers 08:49:21 09:26:07 Carla C REFERENCE ASSISTANT 350.1.13.10 ity of Visit REGIONAL 4.2.7.2.686 Juan as MATERNAL [phone] Med ical & CHILD [address] [place] [address] 2019-11-11 2019-11-11 Routine Akinsipe, [facility] 1.2.319.546 [id number] 08:49:21 09:26:07 Carla C REFERENCE ASSISTANT 350.1.13.10 Visit REGIONAL 4.2.7.2.686 MATERNAL [id number] & CHILD [address] [place] [address] 2019-11-11 2019-11-11 Outpatient R AKINSIPE, [facility] [id number] Univers 09:00:00 09:00:00 CARLA ity o f [facility] 2019-10-27 2019-10-27 Routine Akinsipe, [facility] 1.2.039.340 [id number] Univers 09:42:46 12:09:33 Carla C REFERENCE ASSISTANT 350.1.13.10 ity of Visit REGIONAL 4.2.7.2.686 Juan as MATERNAL [id number] [facility] ical & CHILD [address] [place] [address] 2019-10-27 2019-10-27 Outpatient R AKINSIPE, [facility] [id number] Univers 09:30:00 09:30:00 CARLA ity o f [facility] 2019-10-13 2019-10-13 Routine Faculty, Han Basilio [facility] 1.2 .840.114 [id number] Univers 08:47:13 11:29:01 AishwaryaLeandro REFERENCE ASSISTANT 350.1.13.10 ity of Visit [facility] 4.2.7.2.686 Juan as MATERNAL [id number] [facility] ical & CHILD [address] [place] [address] 2019-10-13 2019-10-13 Outpatient R [facility] [id number] Univers 09:00:00 09:00:00 ity of [facility] 2019-10-09 2019-10-09 Orders Doctor ESTUARDO 1.2.840.114 [id number] Univers 00:00:00 00:00:00 Only Unassigned, LUKE 350.1.13.10 ity of [facility] 4.2.7.2.686 Juan as [phone] [address] 2019-10-02 2019-10-02 [facility] 1.2 .840.114 [id number] [facility] 09:02:47 09:32:54 Visit Carla Rajan REFERENCE ASSISTANT 350.1.13. 10 ity of [facility] 4.2.7.2.686 Juan as MATERNAL [phone] [facility] ical & CHILD [address] [place] [address] 2019-10-01 2019-10-01 Diamond Expert Ultrasound, Rebecabrandy [facility] 1.2 .840.114 [id number] Univers 09:01:49 10:01:49 Visit Carla Rajan REFERENCE ASSISTANT 350.1.13. 10 ity of [facility] 4.2.7.2.686 Juan as MATERNAL [phone] [facility] ical & CHILD [address] [facility] [place] [place] 2019-10-01 2019-10-01 [facility] 1.2.840. 114 [id number] Univers 08:36:33 08:41:17 Visit Carla Rajan REFERENCE ASSISTANT 350.1.13. 10 ity of [facility] 4.2.7.2.686 Juan as MATERNAL [id number] [facility] ical & CHILD [address] [place] [address] 2019-10-01 2019-10-01 Abstract Satinder [facility] 1.2.840.114 [id number] Univers 00:00:00 00:00:00 Carla C REFERENCE ASSISTANT 350.1.13.10 ity of [facility] 4.2.7.2.686 Juan as MATERNAL [phone] [facility] ical & CHILD [address] [place] [address] 2019-10-01 2019-10-01 Telephone [facility] 1.2.840.114 [id number] Univers 00:00:00 00:00:00 Carla C REFERENCE ASSISTANT 350.1.13.10 ity of [facility] 4.2.7.2.686 Juan as MATERNAL [phone] [facility] ical & CHILD [address] [place] [address] 2019-09-30 2019-09-30 Initial [facility] [id number] Univers 13:30:37 14:59:32 Carla C REFERENCE ASSISTANT 350.1.13.10 ity of Visit [facility] 4.2.7.2.686 Juan as MATERNAL [phone] [facility] & CHILD [address] [place] [address] 2019-09-30 2019-09-30 Orders Doctor ESTUARDO 1.2.840.114 [id number] Univers 00:00:00 00:00:00 Only Unassigned, LUKE 350.1.13.10 ity of [place] [facility] 4.2.7.2.686 Juan as [id number] [address] Results Test Description Test Time Test Comments Results Result Comments Source POCT TEST 2022-11-15 19:42:00 Test Item Value Reference Range Interpretation Comme nts POCT PREG (test code = 1605) Negative On board controls acceptable with C Line (test code = 3574) Yes POCT PREG LOT # (test code = 3575) POCT PREG TEST DATE (test code = 3576) [facility] [id number] 19:42:00 Test Item Value Reference Range Interpretation Comments POCT PREG (test code = 1605) Negative On board controls acceptable with C Yes Line (test code = 3574) POCT PREG LOT # (test code = 3575) POCT PREG TEST DATE (test code = 3576) [facility] [id number] 14:33:00 Test Item Value Reference Range Interpretation Comments POCT PREG (test code = 1605) Negative On board controls acceptable with C Yes Line (test code = 3574) POCT PREG LOT # (test code = 3575) POCT PREG TEST DATE (test code = 3576) [facility] [id number] 14:33:00 Test Item Value Reference Range Interpretation Comments POCT PREG (test code = 1605) Negative On board controls acceptable with C Yes Line (test code = 3574) POCT PREG LOT # (test code = 3575) POCT PREG TEST DATE (test code = 3576) [facility] ONLY - SYPHILIS [id number] 15:38:00 Test Item Value Reference Range Interpretation Comments Syphilis IgG/IgM (test Non-reactive Non-reactive code = 50388-2) JOSE RAFAEL (test code = JOSE RAFAEL) Non-reactive - No serologic evidence of T. pallidum infection. Cannot exclude incubating or early syphilis. Submit a second specimen in 2-4 weeks if syphilis is clinically suspected. Equivocal - Further testing to follow. Reactive - Further testing to follow. Lab Interpretation (test Normal code = 78048-8) [facility] LakeCB WITH [id number] 09:57:00 Test Item Value Reference Range Interpretation Comments WBC (test code = See_Comment H [Automated 2790-2) message] The system which generated this result transmit gianna reference range : 4.50 - 13.50 10*3/?L. The reference range was not used to interpret this result as normal/abnormal . RBC (test code = See_Comment L [Automated 899-8) message] The system which generated this result [...] RDW-SD (test code = 44.9 fL 38.5-49 86326-6) RDW-CV (test code = 13.5 % 11.5-14 788-0) PLT (test code = See_Comment [Automated 777-3) message] The system which generated this result transmit gianna reference range : 135 - 361 10*3/ ?L. The reference range was not u sed to interpret th is result as normal/abnormal . MPV (test code = 11.5 fL 9.4-13.3 93680-8) NRBC/100 WBC (test See_Comment [Automat ed code = 9573979632) message] The system which generated this result transmit gianna reference range : 0.0 - 10.0 /100 WBCs. The reference range was not used to interpret this result as normal/abnormal . NRBC x10^3 (test code <0.01 See_Comment [Auto mated = 0451076431) message] The system which generated this result transmit gianna reference range : 10*3/?L. The reference range was not used to interpret this result as normal/abnormal . GRAN MAT (NEUT) % 82.3 % (test code = 770-8) IMM GRAN % (test code 1.00 % = 7452311655) LYMPH % (test code = 10.2 % 736-9) MONO % (test code = 5.6 % 5905-5) EOS % (test code = 0.5 % 713-8) BASO % (test code = 0.4 % 706-2) GRAN MAT x10^3(ANC) 14.09 10*3/uL 1.5-10.3 H (test code = 3013650330) IMM GRAN x10^3 (test 0.17 10*3/uL 0-0.06 H code = 1414304509) LYMPH x10^3 (test code 1.74 10*3/uL 0.7-7.4 = 731-0) MONO x10^3 (test code 0.96 10*3/uL 0-0.5 H = 742-7) EOS x10^3 (test code = 0.09 10*3/uL 0-0.4 711-2) BASO x10^3 (test code 0.06 10*3/uL 0-0.1 = 704-7) BANDS (test code = Increased A 0906776350) Lab Interpretation Abnormal (test code = 37679-9) [facility] (D) IMMUNE [id number] 04:07:12 Test Item Value Reference Range Interpretation Comments RHIG CANDIDATE? No- see comment Patient i s not a (test code = candidate for R hIg- 5055) Patient is Rh Positive.Perfor med at [facility] Laboratory Services - [facility] Blood [address] [address]Hsxj Free: [phone] A No. [id number] [facility] LakeARTERIAL CORD [id number] 23:57:00 Test Item Value Reference Range Interpretation Comments BASE EXCESS, CORD (test mEq/L code = 4787417980) AC PH, CORD (BEAKER) 7.18-7.38 (test code = 2493257323) PC02, CORD (test code = See_Comment H [Au tomated message] 8961093307) The system [employer] generated this result transmitted ref erence range: 32 - 66 mmHg. The reference r devin was not used to interpret this result as normal/abnor mal. PO2, CORD (test code = See_Comment [Aut omated message] 1744417690) The system [employer] generated this result transmitted ref erence range: 10 - 30 mmHg. The reference r devin was not used to interpret this result as normal/abnor mal. BICARBONATE, CORD (test See_Comment H [Au tomated message] code = 0991814092) The syste m which generated this result transmitted ref erence range: 17 - 27 mEq/L. The reference r devin was not used to interpret this result as normal/abnor mal. Lab Interpretation (test Abnormal code = 24573-4) [facility] LakeVENOUS CORD [id number] 23:52:00 Test Item Value Reference Range Interpretation Comments VENOUS BASE EXCESS, CORD mEq/L (test code = 6221667101) VENOUS PH, CORD (test 7.25-7.45 code = 8935463109) VENOUS PC02, CORD (test See_Comment H [Au tomated message] code = 1311800315) The syste m which generated this result transmitted ref erence range: 27 - 49 mmHg. The reference r devin was not used to interpret this result as normal/abnor mal. VENOUS PO2, CORD (test See_Comment [Aut omated message] code = 2565646373) The syste m which generated this result transmitted ref erence range: 17 - 41 mmHg. The reference r devin was not used to interpret this result as normal/abnor mal. VENOUS BICARBONATE, CORD See_Comment [A utomated message] (test code = 7942553882) The system which generated this result transmitted ref erence range: 12 - 29 mEq/L. The reference r devin was not used to interpret this result as normal/abnor mal. Lab Interpretation (test Abnormal code = 31769-9) [facility] LakeHepatitis B Surface [id number] 22:06:00 Test Item Value Reference Range Interpretation Comments HBsAg Semi-Quantitative (test code = Negative Negative 5195-3) [facility] LakeType and Screen - ONCE [id number] 21:39:44 Test Item Value Reference Range Interpretation Comments ABO & RH (test code O POSITIVE Performe d at [facility] = 20) [facility] [address] [place] [address] s [address]Ixla Free: [phone] A No. [id number] IAT (test code = Negative Performed a t [facility] 1185) [facility] [address] [place] [address] s [address]Lsbz Free: [phone] A No. [id number] [facility] LakeCORONAVIRUS COVID-19 [id number] 18:00:00 Test Item Value Reference Range Interpretation Comments SARS-CoV-2 (test code = Not Detected Not Detected 84095-8) JOSE RAFAEL (test code = JOSE RAFAEL) ID NOW COVID-19 Assay is an isothermal nucleic acid amplification test intended for the qualitative detection of nucleic acid from SARS-CoV-2 viral RNA in nasopharyngeal (SUPERVISOR G[employer] METER REPAIR) specimens. It is used under Emergency Use [...] indicated. Lab Interpretation Normal (test code = 87541-6) [facility] URINALYSIS W SPECIFIC [id number] 13:49:00 Test Item Value Reference Range Interpretation [...] POCT U APPEAR (test code = 3267) [facility] URINALYSIS W SPECIFIC [id number] 14:00:00 Test Item Value Reference Range Interpretation [...] POCT U APPEAR (test code = 3267) [facility] URINALYSIS W SPECIFIC [id number] 14:00:00 Test Item Value Reference Range Interpretation [...] POCT U APPEAR (test code = 3267) [facility] URINALYSIS W SPECIFIC [id number] 17:09:00 Test Item Value Reference Range Interpretation [...] POCT U APPEAR (test code = 3267) [facility] URINALYSIS W/O SPECIFIC [id number] 19:35:00 Test Item Value Reference Range Interpretation [...] code = 3257) Neg Negative - Negative [facility] URINALYSIS W/O SPECIFIC [id number] 19:35:00 Test Item Value Reference Range Interpretation [...] code = 3257) Neg Negative - Negative [facility] URINALYSIS W/O SPECIFIC [id number] 19:35:00 Test Item Value Reference Range Interpretation [...] code = 3257) Neg Negative - Negative [facility] URINALYSIS W/O SPECIFIC [id number] 19:35:00 Test Item Value Reference Range Interpretation [...] code = 3257) Neg Negative - Negative [facility] [id number] 19:34:00 Test Item Value Reference Range Interpretation Comments POCT PREG (test code = 1605) Positive On board controls acceptable with C Yes Line (test code = 3574) POCT PREG LOT # (test code = 3575) POCT PREG TEST DATE (test code = 3576) [facility] [id number] 19:34:00 Test Item Value Reference Range Interpretation Comments POCT PREG (test code = 1605) Positive On board controls acceptable with C Yes Line (test code = 3574) POCT PREG LOT # (test code = 3575) POCT PREG TEST DATE (test code = 3576) [facility] [id number] 19:34:00 Test Item Value Reference Range Interpretation Comments POCT PREG (test code = 1605) Positive On board controls acceptable with C Yes Line (test code = 3574) POCT PREG LOT # (test code = 3575) POCT PREG TEST DATE (test code = 3576) [facility] [id number] 19:34:00 Test Item Value Reference Range Interpretation Comments POCT PREG (test code = 1605) Positive On board controls acceptable with C Yes Line (test code = 3574) POCT PREG LOT # (test code = 3575) POCT PREG TEST DATE (test code = 3576) [facility]
[2023-05-21] MEDS ORDERED: NA CHLORIDE 0.9% 1,000 ML ONE (20:10)
[2023-05-21] MEDS ORDERED: DIPHENHYDRAMINE 50 MG/ML VIAL ONE (20:10)
[2023-05-21] MEDS ORDERED: dexAMETHasone 10 MG/ML VIAL ONE (20:10)
[2023-05-21] MEDS ORDERED: FAMOTIDINE 20 MG/2 ML VIAL IV ONE (20:11)
--- NOTE | 2023-05-21 20:24 | EDPHYS ---
Physician Documentation [facility] Name: Atiya Castellanos Age: 22 yrs Sex: Female : 2000 Arrival Date: 05/21/2023 Time: 19:36 Bed DIS3 Private MD: ED Physician Mushtaq Perez HPI: 05/21 20:11 This 22 yrs old Female presents to ER via Ambulatory with complaints of Allergic kb Reaction. 20:11 The patient presents with rash. Onset: The symptoms/episode began/occurred just prior kb to arrival. Associated signs and symptoms: Pertinent positives: hives. Possible causes: The patient has no known obvious cause for the symptoms. At home the patient or guardian has treated the symptoms with nothing. Severity of symptoms: At their worst the symptoms were moderate in the emergency department the symptoms are unchanged. The patient has experienced similar episodes in the past. The patient has not recently seen a physician. Pt reports she developed a rash and itchy throat a few minutes scow captain. States this happens a lot and she is not sure what the cause is. Has been to an health and fitness professor and unable to find the cause. . Historical: - Allergies: 19:51 Milk/dairy products; mb9 19:51 Soy; mb9 - PMHx: 19:51 Bipolar disorder; mb9 - PSHx: 19:51 section; eye; mb9 - Immunization history:: Client reports having NOT received the Covid vaccine. - Social history:: Smoking status: Reported history of juuling and/or vaping. ROS: 20:08 Constitutional: Negative for fever, chills, and weight loss, kb 20:08 ENT: Positive for "itchy throat", 20:08 Skin: Positive for rash, 20:08 All other systems are negative, Exam: 20:10 Constitutional: This is a well developed, well nourished patient who is awake, alert, kb and in no acute distress. Head/Face: Normocephalic, atraumatic. ENT: Moist Mucous membranes Cardiovascular: Regular rate Respiratory: Respirations even and unlabored. No increased work of breathing. Talking in full sentences Abdomen/GI: Soft, non-tender. No distention MS/ Extremity: Pulses equal, no cyanosis. Neurovascular intact. Full, normal range of motion. Neuro: Awake and alert, GCS 15, oriented to person, place, time, and situation. Moves all extremities. Normal gait. 20:10 Skin: rash a moderate rash is noted, rash can be described as urticarial, consistent kb with urticaria, and is diffusely located, Vital Signs: 19:50 BP 108 / 68; Pulse 76; Resp 16 S; Temp 98.4(TE); Pulse Ox 100% on R/A; Weight 63.5 kg mb9 (R); Height 5 ft. 0 in. (R); Pain 10/10; 19:50 Body Mass Index 27.34 (63.50 kg, 152.4 cm) mb9 19:50 Pain Scale: Adult mb9 MDM: 19:40 Patient medically screened. kb 20:08 Differential diagnosis: anaphylaxis, angioedema, urticaria. Data reviewed: vital signs, kb nurses notes. Counseling: I had a detailed discussion with the patient and/or guardian regarding the historical points, exam findings, and any diagnostic results supporting the discharge/admit diagnosis, the need for outpatient follow up, a family practitioner, to return to the emergency department if symptoms worsen or persist or if there are any questions or concerns that arise at home. 20:23 Response to treatment: the patient's symptoms have resolved after treatment. kb 05/21 19:49 Order name: IV Start; Complete Time: 20:04 kb Administered Medications: 20:04 Drug: NS 0.9% IV 1000 ml IV at 1000 ml once Route: IV; Rate: 1000 ml; Site: right as6 antecubital; 20:31 Follow up: Response: No adverse reaction; IV Status: Completed infusion; IV Intake: as6 1000ml 20:04 Drug: diphenhydrAMINE IVP 25 mg IVP once Route: IVP; Site: right antecubital; as6 20:31 Follow up: Response: No adverse reaction as6 20:05 Drug: Decadron - Dexamethasone IVP 10 mg IVP once Route: IVP; Site: right antecubital; as6 20:31 Follow up: Response: No adverse reaction as6 20:05 Drug: Famotidine IVP 20 mg IVP once; dilute with 10 mL 0.9% NaCl; give over 2 minutes as6 Route: IVP; Site: right antecubital; 20:31 Follow up: Response: No adverse reaction as6 Disposition: 21:52 Co-signature as Attending Physician, Mushtaq Perez MD I reviewed the patient's care rt provided by the Advanced Practice Provider and agree with the diagnosis and treatment plan. Disposition Summary: 05/21/23 20:23 Discharge Ordered Notes: Location: Home kb Condition: Stable kb Diagnosis - Urticaria, unspecified kb Followup: kb - With: Private Physician - When: 2 - 3 days - Reason: Recheck today's complaints, Continuance of care, Re-evaluation by your physician Followup: kb - With: Emergency Department - When: As needed - Reason: Worsening of condition Discharge Instructions: - Discharge Summary Sheet kb - Hives, Xvpq-tk-Gval kb Forms: - Medication Reconciliation Form kb - Thank You Letter kb - Antibiotic Education kb - Prescription Opioid Use kb - Patient Portal Instructions kb - Leadership Thank You Letter kb Prescriptions: - Pepcid 20 mg Oral Tablet - take 1 tablet ORAL route every 12 hours for 5 days; 10 tablet; Refills: 0, kb Product Selection Permitted - Prednisone 20 mg Oral Tablet - take 1 tablet ORAL route once daily for 5 days; 5 tablet; Refills: 0, Product kb Selection Permitted Signatures: Sandy Tang, PLATING TANK OPERATOR-C PLATING TANK OPERATOR-Wellington Esparza RN RN as6 Holli Ramírez RN RN mb9 Mushtaq Perez MD MD rt Corrections: (The following items were deleted from the chart) 20:11 20:10 Constitutional: This is a well developed, well nourished patient who is awake, kb alert, and in no acute distress. Head/Face: Normocephalic, atraumatic. ENT: Moist Mucous membranes Cardiovascular: Regular rate Respiratory: Respirations even and unlabored. No increased work of breathing. Talking in full sentences Abdomen/GI: Soft, non-tender. No distention Skin: Warm, dry with normal turgor. Normal color. MS/ Extremity: Pulses equal, no cyanosis. Neurovascular intact. Full, normal range of motion. Neuro: Awake and alert, GCS 15, oriented to person, place, time, and situation. Moves all extremities. Normal gait. kb
--- NOTE | 2023-05-21 20:24 | ER ---
Nurse's Notes [facility] Name: Atiya Castellanos Age: 22 yrs Sex: Female : 2000 Arrival Date: 05/21/2023 Time: 19:36 Bed DIS3 Private MD: Diagnosis: Urticaria, unspecified Presentation: 05/21 19:50 Chief complaint: Patient states: rash, hives, itching that started today, unknown mb9 allergy. Coronavirus screen: At this time, the client does not indicate any symptoms associated with coronavirus-19. Ebola Screen: No symptoms or risks identified at this time. Initial Sepsis Screen: Does the patient meet any 2 criteria? No. Patient's initial sepsis screen is negative. Does the patient have a suspected source of infection? No. Patient's initial sepsis screen is negative. Risk Assessment: Do you want to hurt yourself or someone else? Patient reports no desire to harm self or others. Onset of symptoms was May 21, 2023. 19:50 Method Of Arrival: Ambulatory 9 19:50 Acuity: CHRIS 3 mb9 Triage Assessment: 19:52 General: Appears in no apparent distress. Behavior is calm, cooperative. Pain: mb9 Complains of pain in generalized. Derm: Rash noted that is itchy, red, raised, Reports burning, itching. Historical: - Allergies: 19:51 Milk/dairy products; mb9 19:51 Soy; mb9 - PMHx: 19:51 Bipolar disorder; mb9 - PSHx: 19:51 section; eye; mb9 - Immunization history:: Client reports having NOT received the Covid vaccine. - Social history:: Smoking status: Reported history of juuling and/or vaping. Screenin:31 [facility] ED Fall Risk Assessment (Adult) Score/Fall Risk Level 0 - 2 = Low Risk. Abuse as6 screen: Denies threats or abuse. Denies injuries from another. Nutritional screening: No deficits noted. Tuberculosis screening: No symptoms or risk factors identified. Vital Signs: 19:50 BP 108 / 68; Pulse 76; Resp 16 S; Temp 98.4(TE); Pulse Ox 100% on R/A; Weight 63.5 kg mb9 (R); Height 5 ft. 0 in. (R); Pain 10/10; 19:50 Body Mass Index 27.34 (63.50 kg, 152.4 cm) mb9 19:50 Pain Scale: Adult mb9 ED Course: 19:38 Patient arrived in ED. ag3 19:40 Sandy Tang [facility]C [facility]. kb 19:40 Mushtaq Perez MD is Attending Physician. kb 19:51 Triage completed. mb9 19:52 Arm band placed on. mb9 20:05 Inserted saline lock: 20 gauge in right antecubital area, using aseptic technique. as6 Blood collected. 20:31 Bed in low position. Call light in reach. Provided Education on: follow up, rx teaching.as6 20:31 No provider procedures requiring assistance completed. IV discontinued, intact, as6 bleeding controlled, No redness/swelling at site. Pressure dressing applied. Administered Medications: 20:04 Drug: NS 0.9% IV 1000 ml IV at 1000 ml once Route: IV; Rate: 1000 ml; Site: right as6 antecubital; 20:31 Follow up: Response: No adverse reaction; IV Status: Completed infusion; IV Intake: as6 1000ml 20:04 Drug: diphenhydrAMINE IVP 25 mg IVP once Route: IVP; Site: right antecubital; as6 20:31 Follow up: Response: No adverse reaction as6 20:05 Drug: Decadron - Dexamethasone IVP 10 mg IVP once Route: IVP; Site: right antecubital; as6 20:31 Follow up: Response: No adverse reaction as6 20:05 Drug: Famotidine IVP 20 mg IVP once; dilute with 10 mL 0.9% NaCl; give over 2 minutes as6 Route: IVP; Site: right antecubital; 20:31 Follow up: Response: No adverse reaction as6 Medication: 20:32 VIS not applicable for this client. as6 Intake: 20:31 IV: 1000ml; Total: 1000ml. as6 Outcome: 20:23 Discharge ordered by . kb 20:32 Discharged to home ambulatory, with family, as6 20:32 Condition: stable 20:32 Discharge instructions given to patient, Instructed on discharge instructions, follow up and referral plans. medication usage, Demonstrated understanding of instructions, follow-up care, medications, Prescriptions given X 2, 20:32 Patient left the ED. as6 Signatures: Sandy Tang FNP-C FNP-Ckb Eliane Peterson ag3 Wellington Cardenas, RN RN as6 Holli Ramírez, RN RN mb9
[2023-05-21 21:04] VITALS: BP 108/68; TEMP 98.4; O2SAT 100
== END 2023-05-21 20:32 | disposition home or self-care (01) ==
LOC: ER 19:36
DX: L50.9 Urticaria, unspecified (principal)
CPT/HCPCS: 96374; 96375; 99284; J1100; J1200; J7030

== ENCOUNTER 2023-05-31 01:00 | Emergency (ER) | payer SELFPAY ==
--- OUTSIDE RECORDS SUMMARY | 2023-05-31 01:05 | XMS REPORT | Continuity of Care Document ---
:2000 Author Organization [facility] t Address [address] [place] [address] [address] [place] [address] Care Team Providers Name Role Phone TREVER ULYSSES Micheal Primary Care Physician Unavailable RUDDY COLBERT Attending Clinician Unavailable RUDDY COLBERT Attending Clinician Unavailable ERIN TILLEY Attending Clinician Unavailable Brittni Martínez RN Attending Clinician Unavailable Doctor Unassigned, Dortches Attending Clinician Unavailable RASHID CHA Attending Clinician Unavailable Declan Fermin DO Attending Clinician Rashid Moses Attending Clinician Visit, Qian Nurse Attending Clinician Unavailable Carla Ramos Attending Clinician [phone] CARLA RAJAN Attending Clinician Unavailable Fidelia Billings MD Attending Clinician Faculty, Han Marquez Attending Clinician Unavailable Leandro Neff MD Attending Clinician Ultrasound, Ayden Attending Clinician Unavailable Lab, Qian Attending Clinician Unavailable Fidelia Billings MD Admitting Clinician Payers Payer Name Policy Type Policy Number Effective Date Expiration Date S marva CURTISS [id number] 2019 HEALTH 00:00:00 MEDICAID [facility] [id number] 2023 00:00:00 Problems Condition Condition Condition Status Onset Resolution Last Treating Co mments Source Name Details Category Date Date Treatment Clinician Date Encounter Encounter Disease Active Uni vers for IUD for IUD 4-04 [place] [facility] Counseling Counseling Disease Active U nivers for for 3- ity of control control 00:00: [place] regarding regarding [facility] intrauteri intrauteri Br anch ne device ne device (IUD) (IUD) Nexplanon Nexplanon Disease Active Uni vers removal removal 3- ity of 00:00: [address] Disease Active U nivers care and care and 5-05 [place] examin[place] Medical immediatel immediatel Br anch y after y after delivery delivery BMI BMI Disease Active Univers 30.0-30.9, 30.0-30.9, 4-11 it y of adult adult 00:00: [address] 37 weeks 37 weeks Disease Active Unive rs gestation gestation 4-11 ity of of of 00:00: [place] 00 [facility] Chlamydia Chlamydia Disease Active Overview: Univers infection infection 2-19 Formattin i ty of during during 00:00: g of this [place] 00 note [facility] might be Branch different from the [...] high-risk high-risk 00:[place] [facility] with with Branch insufficie insufficie nt [...] INGREDI 01-02 ity of 00:00: [place] [facility] [place] Social History Social Habit Start Date Stop Date Quantity Comments Source ASSERTION 2019-03-20 University of 00:00:00 [facility] Gender identity Universit y of [facility] Sexual orientation Univer sity of [facility] Alcohol intake 2023-04-03 2023-04-03 Ex-drinker [place] of 00:00:00 00:00:00 (finding) [facility] History of Social 2022-11-14 2022-11-14 Univers ity of function 00:00:00 00:00:00 [facility] Exposure to 2022-10-31 2022-11-10 Not sure University of SARS-CoV-2 (event) 00:00:00 12:18:00 [facility] Tobacco use and 2022-11-10 2022-11-10 Smokeless Universit y of exposure 00:00:00 00:00:00 tobacco non-user [facility] Education 2019-11-22 2019-11-22 11 University of 00:00:00 00:00:00 [facility] Tobacco Comment 2013-06-10 2013-06-10 mom smokes Universit y of 00:00:00 00:00:00 outside [facility] Sex Assigned At [birth year] Universit y of 00:00:00 00:00:00 [facility] Smoking Status Start Date Stop Date Source Never smoked tobacco [facility] Medications Ordered Filled Start Stop Current Ordering Indication Dosage Frequency Signature Comments Components Source Medication Medication Date Date Medication? Clinician (SIG) Name Name doxycycline No [id number] 100mg Take 1 Univers monohydrate 11-16-14 capsule by i ty of 100 mg 00:00: 04:59 mouth in [place] capsule 00 :00 the Medical morning Branch and 1 capsule in the evening. Do all this for 7 days. doxycycline No [id number] 100mg Take 1 Univers monohydrate 11-16-14 capsule by i ty of 100 mg 00:00: 04:59 mouth in [place] capsule 00 :00 the Medical morning Branch and 1 capsule in the evening. Do all this for 7 days. doxycycline No [id number] 100mg Take 1 Univers monohydrate 11-16-14 capsule by i ty of 100 mg 00:00: 04:59 mouth in [place] capsule 00 :00 the Medical morning Branch and 1 capsule in the evening. Do all this for 7 days. doxycycline No [id number] 100mg Take 1 Univers monohydrate 11-1614 capsule by i ty of 100 mg 00:00: 04:59 mouth in [place] capsule 00 :00 the Medical morning Branch and 1 capsule in the evening. Do all this for 7 days. levonorgest 2022- No [id number] 1{devic Univers reL 11-15 e} ity of (MIRENA) 21:45: 20:46 [place] IUD 1 00 :00 [employer]ipe [employer] Branch levonorgest 2022- No [id number] 1{devic 1 Device, Univers reL 11-15 e} Intrauteri ity of (MIRENA) 21:45: 20:46 ne, ONCE, [place] IUD 1 00 :00 1 dose, On Pipe Fitter 11/15/22 Branch at 1645, Routine levonorgest 2022- No [id number] 1{devic Univers reL 4-05 04-05 e} ity of (MIRENA) 21:45: 20:46 [place] IUD 1 00 :00 Pipe [employer] Branch levonorgest 2022- No [id number] 1{devic 1 Device, Univers reL 4-05 04-05 e} Intrauteri ity of (MIRENA) 21:45: 20:46 ne, ONCE, [place] IUD 1 00 :00 1 dose, On Pipe Fitter 11/15/22 Branch at 1645, Routine miSOPROStoL Yes [id number] Take 1 Univers 200 mcg 4-04 tablet, by ity of tablet 00:00: mouth, at [place] 00 bedtime Medical the night Branch before IUD insertion procedure. Repeat dose at 0700 am on the morning of IUD insertion for cervical softening; not for abortive purposes. miSOPROStoL Yes [id number] Take 1 Univers 200 mcg 4-04 tablet, by ity of tablet 00:00: mouth, at [place] 00 bedtime Medical the night Branch before IUD insertion procedure. Repeat dose at 0700 am on the morning of IUD insertion for cervical softening; not for abortive purposes. miSOPROStoL 2022- No [id number] Take 1 Univers 200 mcg 4-04 04-05 tablet, by ity o f tablet 00:00: 00:00 mouth, at [place] 00 :00 bedtime Medical the night Branch before IUD insertion procedure. Repeat dose at 0700 am on the morning of IUD insertion for cervical softening; not for abortive purposes. miSOPROStoL 2022- No [id number] Take 1 Univers 200 mcg 4-04 04-05 tablet, by ity o f tablet 00:00: 00:00 mouth, at [place] 00 :00 bedtime Medical the night Branch before IUD insertion procedure. Repeat dose at 0700 am on the morning of IUD insertion for cervical softening; not for abortive purposes. etonogestre 2019- No [id number] 68mg Univers l 5-27 05-27 ity of (NEXPLANON) 16:00: 14:55 [place] implant 68 00 :00 Medical mg Branch etonogestre 2019- No [id number] 68mg 68 mg, Univers l 5-27 05-27 Subdermal, ity of (NEXPLANON) 16:00: 14:55 ONCE NOW, [place] implant 68 00 :00 1 dose, Medica l mg [facility] 01/07/20 at 1100, Routine
Use approved by: SPLASH LINE OPERATOR etonogestre 2020- No [id number] 68mg Univers l 01-06 ity of (NEXPLANON) 16:00: 14:55 [place] implant 68 00 :00 Medical [facility] etonogestre 2019- No [id number] 68mg 68 mg, Univers l 01-06 Subdermal, ity of (NEXPLANON) 16:00: 14:55 ONCE NOW, [place] implant 68 00 :00 1 dose, Medica l mg [facility] 01/07/20 at 1100, Routine
Use approved by: SPLASH LINE OPERATOR lisdexamfet 2019- No 50mg Take 50 mg Univers amine 11-2212 by mouth ity of (VYVANSE) 12:42: 00:00 every [place] 50 mg 10 :00 morning. Medical capsule [place] ARIPiprazol 2020- No 2mg Take 2 mg Univers e (ABILIFY) 11-2212 by mouth ity of 2 mg tablet 12:42: 00:00 daily. [place] as 10 :00 Medical [place] human 2019- Yes .5mL 0.5 mL, Univers papillomav 11-22 Intramuscu ity of vac,9-migel(P 12:26: [facility], [place] F) 12 ONCE-PRIOR Medical (GARDASIL-9 TO [place] ) syringe DISCHARGE, 0.5 mL 1 dose, Starting 11/23/19 at 0726, Until Discontinu ed, Routine, Give vaccine prior to discharge varicella 2019- 2020- No .5mL 0.5 mL, Univ ers virus 11-2213 Subcutaneo ity of vaccine 12:26: 16:35 , [place] live 12 :00 ONCE-PRIOR Medical (VARIVAX TO [place] (PF)) DISCHARGE, injection 1 dose, 0.5 mL [...] at 1912, Routine, Analgesia Recovery 2019-0 Yes [id number] 1{tbl} Take 1 Univers vitamin 4-12 tablet by ity of w/FA tablet 00:00: mouth [place] 00 daily. Medical Branch docusate 2020-0 Yes [id number] 240mg Take 1 U nivers calcium 240 4-12 capsule by it y of mg capsule 00:00: mouth once [place] daily as Medical needed for Branch Constipati on. ferrous 2020-0 Yes [id number] 325mg Take 1 Un dustin sulfate 325 4-12 tablet by ity of mg (65 mg 00:00: mouth 2 [place] iron) 00 (two) Medical tablet times Branch daily. ibuprofen 2020-0 Yes [id number] 600mg Take 1 Univers 600 mg 4-12 tablet by ity of tablet 00:00: mouth [place] 00 every 6 Medical (six) Branch hours as needed (Pain). Take with food or milk. 2020-0 Yes [id number] 1{tbl} Take 1 Univers vitamin 4-12 tablet by ity of w/FA tablet 00:00: mouth [place] 00 daily. Medical Branch docusate 2020-0 Yes [id number] 240mg Take 1 U nivers calcium 240 4-12 capsule by it y of mg capsule 00:00: mouth once [place] 00 daily as Medical needed for Branch Constipati on. ferrous 2020-0 Yes [id number] 325mg Take 1 Un dustin sulfate 325 4-12 tablet by ity of mg (65 mg 00:00: mouth 2 [place] iron) 00 (two) Medical tablet times Branch daily. ibuprofen 2020-0 Yes [id number] 600mg Take 1 Univers 600 mg 4-12 tablet by ity of tablet 00:00: mouth [place] 00 every 6 Medical (six) Branch hours as needed (Pain). Take with food or milk. 2020-0 Yes [id number] 1{tbl} Take 1 Univers vitamin 4-12 tablet by ity of w/FA tablet 00:00: mouth [place] 00 daily. Medical Branch docusate 2020-0 Yes [id number] 240mg Take 1 U nivers calcium 240 4-12 capsule by it y of mg capsule 00:00: mouth once [place] 00 daily as Medical needed for Branch Constipati on. ferrous 2020-0 Yes [id number] 325mg Take 1 Un dustin sulfate 325 4-12 tablet by ity of mg (65 mg 00:00: mouth 2 [place] iron) 00 (two) Medical tablet times Branch daily. ibuprofen 2020-0 Yes [id number] 600mg Take 1 Univers 600 mg 4-12 tablet by ity of tablet 00:00: mouth [place] 00 every 6 Medical (six) Branch hours as needed (Pain). Take with food or milk. 2020-0 Yes [id number] 1{tbl} Take 1 Univers vitamin 4-12 tablet by ity of w/FA tablet 00:00: mouth [place] 00 daily. Medical Branch docusate 2020-0 Yes [id number] 240mg Take 1 U nivers calcium 240 4-12 capsule by it y of mg capsule 00:00: mouth once [place] 00 daily as Medical needed for Branch Constipati on. ferrous 2020-0 Yes [id number] 325mg Take 1 Un dustin sulfate 325 4-12 tablet by ity of mg (65 mg 00:00: mouth 2 [place] iron) 00 (two) Medical tablet times Branch daily. ibuprofen 2020-0 Yes [id number] 600mg Take 1 Univers 600 mg 4-12 tablet by ity of tablet 00:00: mouth [place] 00 every 6 Medical (six) Branch hours as needed (Pain). Take with food or milk. 2020-0 Yes [id number] 1{tbl} Take 1 Univers vitamin 4-12 tablet by ity of w/FA tablet 00:00: mouth [place] 00 daily. Medical Branch docusate 2020-0 Yes [id number] 240mg Take 1 U nivers calcium 240 4-12 capsule by it y of mg capsule 00:00: mouth once [place] 00 daily as Medical needed for Branch Constipati on. ferrous 2020-0 Yes [id number] 325mg Take 1 Un dustin sulfate 325 4-12 tablet by ity of mg (65 mg 00:00: mouth 2 [place] iron) 00 (two) Medical tablet times Branch daily. ibuprofen 2020-0 Yes [id number] 600mg Take 1 Univers 600 mg 4-12 tablet by ity of tablet 00:00: mouth [place] 00 every 6 Medical (six) Branch hours as needed (Pain). Take with food or milk. 2020-0 Yes [id number] 1{tbl} Take 1 Univers vitamin 4-12 tablet by ity of w/FA tablet 00:00: mouth [place] 00 daily. Medical Branch docusate 2020-0 Yes [id number] 240mg Take 1 U nivers calcium 240 4-12 capsule by it y of mg capsule 00:00: mouth once [place] 00 daily as Medical needed for Branch Constipati on. ferrous 2020-0 Yes [id number] 325mg Take 1 Un dustin sulfate 325 4-12 tablet by ity of mg (65 mg 00:00: mouth 2 [place] iron) 00 (two) Medical tablet times Branch daily. ibuprofen 2020-0 Yes [id number] 600mg Take 1 Univers 600 mg 4-12 tablet by ity of tablet 00:00: mouth [place] 00 every 6 Medical (six) Branch hours as needed (Pain). Take with food or milk. 2020-0 Yes [id number] 1{tbl} Take 1 Univers vitamin 4-12 tablet by ity of w/FA tablet 00:00: mouth [place] 00 daily. Medical Branch docusate 2020-0 Yes [id number] 240mg Take 1 U nivers calcium 240 4-12 capsule by it y of mg capsule 00:00: mouth once [place] 00 daily as Medical needed for Branch Constipati on. ferrous 2020-0 Yes [id number] 325mg Take 1 Un dustin sulfate 325 4-12 tablet by ity of mg (65 mg 00:00: mouth 2 [place] iron) 00 (two) Medical tablet times Branch daily. ibuprofen 2020-0 Yes [id number] 600mg Take 1 Univers 600 mg 4-12 tablet by ity of tablet 00:00: mouth [place] 00 every 6 Medical (six) Branch hours as needed (Pain). Take with food or milk. 2020-0 Yes [id number] 1{tbl} Take 1 Univers vitamin 4-12 tablet by ity of w/FA tablet 00:00: mouth [place] 00 daily. Medical Branch docusate 2020-0 Yes [id number] 240mg Take 1 U nivers calcium 240 4-12 capsule by it y of mg capsule 00:00: mouth once [place] 00 daily as Medical needed for Branch Constipati on. ferrous 2020-0 Yes [id number] 325mg Take 1 Un dustin sulfate 325 4-12 tablet by ity of mg (65 mg 00:00: mouth 2 [place] iron) 00 (two) Medical tablet times Branch daily. ibuprofen 2020-0 Yes [id number] 600mg Take 1 Univers 600 mg 4-12 tablet by ity of tablet 00:00: mouth [place] 00 every 6 Medical (six) Branch hours as needed (Pain). Take with food or milk. 2020-0 Yes [id number] 1{tbl} Take 1 Univers vitamin 4-12 tablet by ity of w/FA tablet 00:00: mouth [place] 00 daily. Medical Branch docusate 2020-0 Yes [id number] 240mg Take 1 U nivers calcium 240 4-12 capsule by it y of mg capsule 00:00: mouth once [place] 00 daily as Medical needed for Branch Constipati on. ferrous 2020-0 Yes [id number] 325mg Take 1 Un dustin sulfate 325 4-12 tablet by ity of mg (65 mg 00:00: mouth 2 [place] iron) 00 (two) Medical tablet times Branch daily. ibuprofen 2020-0 Yes [id number] 600mg Take 1 Univers 600 mg 4-12 tablet by ity of tablet 00:00: mouth [place] 00 every 6 Medical (six) Branch hours as needed (Pain). Take with food or milk. 2020-0 Yes [id number] 1{tbl} Take 1 Univers vitamin 4-12 tablet by ity of w/FA tablet 00:00: mouth [place] 00 daily. Medical Branch docusate 2020-0 Yes [id number] 240mg Take 1 U nivers calcium 240 4-12 capsule by it y of mg capsule 00:00: mouth once [place] 00 daily as Medical needed for Branch Constipati on. ferrous 2020-0 Yes [id number] 325mg Take 1 Un dustin sulfate 325 4-12 tablet by ity of mg (65 mg 00:00: mouth 2 [place] iron) 00 (two) Medical tablet times Branch daily. ibuprofen 2020-0 Yes [id number] 600mg Take 1 Univers 600 mg 4-12 tablet by ity of tablet 00:00: mouth [place] 00 every 6 Medical (six) Branch hours as needed (Pain). Take with food or milk. 2020-0 Yes [id number] 1{tbl} Take 1 Univers vitamin 4-12 tablet by ity of w/FA tablet 00:00: mouth [place] 00 daily. Medical Branch docusate 2020-0 Yes [id number] 240mg Take 1 U nivers calcium 240 4-12 capsule by it y of mg capsule 00:00: mouth once [place] 00 daily as Medical needed for Branch Constipati on. ferrous 2020-0 Yes [id number] 325mg Take 1 Un dustin sulfate 325 4-12 tablet by ity of mg (65 mg 00:00: mouth 2 [place] iron) 00 (two) Medical tablet times Branch daily. ibuprofen 2020-0 Yes [id number] 600mg Take 1 Univers 600 mg 4-12 tablet by ity of tablet 00:00: mouth [place] 00 every 6 Medical (six) Branch hours as needed (Pain). Take with food or milk. 2020-0 Yes [id number] 1{tbl} Take 1 Univers vitamin 4-12 tablet by ity of w/FA tablet 00:00: mouth [place] 00 daily. Medical Branch docusate 2020-0 Yes [id number] 240mg Take 1 U nivers calcium 240 4-12 capsule by it y of mg capsule 00:00: mouth once [place] 00 daily as Medical needed for Branch Constipati on. ferrous 2020-0 Yes [id number] 325mg Take 1 Un dustin sulfate 325 4-12 tablet by ity of mg (65 mg 00:00: mouth 2 [place] iron) 00 (two) Medical tablet times Branch daily. ibuprofen 2020-0 Yes [id number] 600mg Take 1 Univers 600 mg 4-12 tablet by ity of tablet 00:00: mouth [place] 00 every 6 Medical (six) Branch hours as needed (Pain). Take with food or milk. 2020-0 Yes [id number] 1{tbl} Take 1 Univers vitamin 4-12 tablet by ity of w/FA tablet 00:00: mouth [place] 00 daily. Medical Branch docusate 2020-0 Yes [id number] 240mg Take 1 U nivers calcium 240 4-12 capsule by it y of mg capsule 00:00: mouth once [place] 00 daily as Medical needed for Branch Constipati on. ferrous 2020-0 Yes [id number] 325mg Take 1 Un dustin sulfate 325 4-12 tablet by ity of mg (65 mg 00:00: mouth 2 [place] iron) 00 (two) Medical tablet times Branch daily. ibuprofen 2020-0 Yes [id number] 600mg Take 1 Univers 600 mg 4-12 tablet by ity of tablet 00:00: mouth [place] 00 every 6 Medical (six) Branch hours as needed (Pain). Take with food or milk. 2020-0 Yes [id number] 1{tbl} Take 1 Univers vitamin 4-12 tablet by ity of w/FA tablet 00:00: mouth [place] 00 daily. Medical Branch docusate 2020-0 Yes [id number] 240mg Take 1 U nivers calcium 240 4-12 capsule by it y of mg capsule 00:00: mouth once [place] 00 daily as Medical needed for Branch Constipati on. ferrous 2020-0 Yes [id number] 325mg Take 1 Un dustin sulfate 325 4-12 tablet by ity of mg (65 mg 00:00: mouth 2 [place] iron) 00 (two) Medical tablet times Branch daily. ibuprofen 2020-0 Yes [id number] 600mg Take 1 Univers 600 mg 4-12 tablet by ity of tablet 00:00: mouth [place] 00 every 6 Medical (six) Branch hours as needed (Pain). Take with food or milk. 2020-0 Yes [id number] 1{tbl} Take 1 Univers vitamin 4-12 tablet by ity of w/FA tablet 00:00: mouth [place] 00 daily. Medical Branch docusate 2020-0 Yes [id number] 240mg Take 1 U nivers calcium 240 4-12 capsule by it y of mg capsule 00:00: mouth once [place] 00 daily as Medical needed for Branch Constipati on. ferrous 2020-0 Yes [id number] 325mg Take 1 Un dustin sulfate 325 4-12 tablet by ity of mg (65 mg 00:00: mouth 2 [place] iron) 00 (two) Medical tablet times Branch daily. ibuprofen 2020-0 Yes [id number] 600mg Take 1 Univers 600 mg 4-12 tablet by ity of tablet 00:00: mouth [place] 00 every 6 Medical (six) Branch hours as needed (Pain). Take with food or milk. 2020-0 Yes [id number] 1{tbl} Take 1 Univers vitamin 4-12 tablet by ity of w/FA tablet 00:00: mouth [place] 00 daily. Medical Branch docusate 2020-0 Yes [id number] 240mg Take 1 U nivers calcium 240 4-12 capsule by it y of mg capsule 00:00: mouth once [place] 00 daily as Medical needed for Branch Constipati on. ferrous 2020-0 Yes [id number] 325mg Take 1 Un dustin sulfate 325 4-12 tablet by ity of mg (65 mg 00:00: mouth 2 [place] iron) 00 (two) Medical tablet times Branch daily. ibuprofen 2020-0 Yes [id number] 600mg Take 1 Univers 600 mg 4-12 tablet by ity of tablet 00:00: mouth [place] 00 every 6 Medical (six) Branch hours as needed (Pain). Take with food or milk. 2020-0 Yes [id number] 1{tbl} Take 1 Univers vitamin 4-12 tablet by ity of w/FA tablet 00:00: mouth [place] 00 daily. Medical Branch docusate 2020-0 Yes [id number] 240mg Take 1 U nivers calcium 240 4-12 capsule by it y of mg capsule 00:00: mouth once [place] 00 daily as Medical needed for Branch Constipati on. ferrous 2020-0 Yes [id number] 325mg Take 1 Un dustin sulfate 325 4-12 tablet by ity of mg (65 mg 00:00: mouth 2 [place] iron) 00 (two) Medical tablet times Branch daily. ibuprofen 2020-0 Yes [id number] 600mg Take 1 Univers 600 mg 4-12 tablet by ity of tablet 00:00: mouth [place] 00 every 6 Medical (six) Branch hours as needed (Pain). Take with food or milk. 2020-0 Yes [id number] 1{tbl} Take 1 Univers vitamin 4-12 tablet by ity of w/FA tablet 00:00: mouth [place] 00 daily. Medical Branch docusate 2020-0 Yes [id number] 240mg Take 1 U nivers calcium 240 4-12 capsule by it y of mg capsule 00:00: mouth once [place] 00 daily as Medical needed for Branch Constipati on. ferrous 2020-0 Yes [id number] 325mg Take 1 Un dustin sulfate 325 4-12 tablet by ity of mg (65 mg 00:00: mouth 2 [place] iron) 00 (two) Medical tablet times Branch daily. ibuprofen 2020-0 Yes [id number] 600mg Take 1 Univers 600 mg 4-12 tablet by ity of tablet 00:00: mouth [place] 00 every 6 Medical (six) Branch hours as needed (Pain). Take with food or milk. 2020-0 Yes [id number] 1{tbl} Take 1 Univers vitamin 4-12 tablet by ity of w/FA tablet 00:00: mouth [place] 00 daily. Medical Branch docusate 2020-0 Yes [id number] 240mg Take 1 U nivers calcium 240 4-12 capsule by it y of mg capsule 00:00: mouth once [place] 00 daily as Medical needed for Branch Constipati on. ferrous 2020-0 Yes [id number] 325mg Take 1 Un dustin sulfate 325 4-12 tablet by ity of mg (65 mg 00:00: mouth 2 [place] iron) 00 (two) Medical tablet times Branch daily. ibuprofen 2020-0 Yes [id number] 600mg Take 1 Univers 600 mg 4-12 tablet by ity of tablet 00:00: mouth [place] 00 every 6 Medical (six) Branch hours as needed (Pain). Take with food or milk. 2020-0 Yes [id number] 1{tbl} Take 1 Univers vitamin 4-12 tablet by ity of w/FA tablet 00:00: mouth [place] 00 daily. Medical Branch docusate 2020-0 Yes [id number] 240mg Take 1 U nivers calcium 240 4-12 capsule by it y of mg capsule 00:00: mouth once [place] 00 daily as Medical needed for Branch Constipati on. ferrous 2020-0 Yes [id number] 325mg Take 1 Un dustin sulfate 325 4-12 tablet by ity of mg (65 mg 00:00: mouth 2 [place] iron) 00 (two) Medical tablet times Branch daily. ibuprofen 2020-0 Yes [id number] 600mg Take 1 Univers 600 mg 4-12 tablet by ity of tablet 00:00: mouth [place] 00 every 6 Medical (six) Branch hours as needed (Pain). Take with food or milk. 2020-0 Yes [id number] 1{tbl} Take 1 Univers vitamin 4-12 tablet by ity of w/FA tablet 00:00: mouth [place] 00 daily. Medical Branch docusate 2020-0 Yes [id number] 240mg Take 1 U nivers calcium 240 4-12 capsule by it y of mg capsule 00:00: mouth once [place] 00 daily as Medical needed for Branch Constipati on. ferrous 2020-0 Yes [id number] 325mg Take 1 Un dustin sulfate 325 4-12 tablet by ity of mg (65 mg 00:00: mouth 2 [place] iron) 00 (two) Medical tablet times Branch daily. ibuprofen 2020-0 Yes [id number] 600mg Take 1 Univers 600 mg 4-12 tablet by ity of tablet 00:00: mouth [place] 00 every 6 Medical (six) Branch hours as needed (Pain). Take with food or milk. HYDROcodone 2019-0 2020- No [id number] 1{tbl} Take 1 Univers -acetaminop 4-12 04-20 tablet by it y of hen 5-325 00:00: 04:59 mouth [place] mg tablet 00 :00 every 6 Medical (six) Branch hours as needed (for pain) for up to 7 days. Do not exceed 3 grams of acetaminop hen in 24 hours. HYDROcodone 2019- 2020- No [id number] 1{tbl} Take 1 Univers -acetaminop 11-22 tablet [...] Surgical Prophylaxi s
Surgi ashley Prophylaxi s: SPLASH LINE OPERATOR
Duration of therapy: within 24 hours [...] [place] (RIGHT STEP 00 daily. Medica l [facility] Branch VITAMINS) 27 mg iron- 0.8 mg per tablet ferrous 0 Yes 325mg Take 1 Univers sulfate 325 3-02 tablet by ity of mg (65 mg 00:00: mouth [place] iron) 00 daily. Medical tablet Branch 2020- No 1{tbl} Take 1 Univ ers Vit-Iron 3-02 04-12 tablet by ity o f Fumarate-FA 00:00: 00:00 [place] (RIGHT STEP 00 :00 daily. Medica l [facility] VITAMINS) 27 mg iron- 0.8 mg [...] Other (see Comments) azithromyci 2020-0 2020- No [id number] 1000mg Take 2 Univers n 500 mg 2-19 02-20 tablets by ity of tablet 00:00: 05:59 mouth once [place] 00 :00 now for 1 Medical dose. Branch azithromyci 2020-0 2020- No [id number] 1000mg Take 2 Univers n 500 mg 2-19 02-20 tablets by ity of tablet 00:00: 05:59 mouth once [place] 00 :00 now for 1 Medical dose. Branch ARIPiprazol 2020-0 Yes 2mg Take 2 mg U nivers e (ABILIFY) 2-18 by mouth ity of 2 mg tablet 19:58: daily. [facility] Medical Branch lisdexamfet 2020-0 Yes 50mg Take 50 mg Univers amine 2-18 by mouth ity of (VYVANSE) 19:58: every [place] 50 mg 26 morning. Medical capsule Branch ARIPiprazol 2019-0 Yes 2mg Take 2 mg U nivers e (ABILIFY) 2-18 by mouth ity of 2 mg tablet 19:58: daily. [facility] Medical Branch lisdexamfet 2019-0 Yes 50mg Take 50 mg Univers amine 2-18 by mouth ity of (VYVANSE) 19:58: every [place] 50 mg 26 morning. Medical capsule Branch ARIPiprazol 2020-0 Yes 2mg Take 2 mg U nivers e (ABILIFY) 2-18 by mouth ity of 2 mg tablet 19:58: daily. [place] [address] Medical Branch lisdexamfet 2020-0 Yes 50mg Take 50 mg Univers amine 2-18 by mouth ity of (VYVANSE) 19:58: every [place] 50 mg 26 morning. Medical capsule Branch ARIPiprazol 2020-0 Yes 2mg Take 2 mg U nivers e (ABILIFY) 2-18 by mouth ity of 2 mg tablet 19:58: daily. [facility] Medical Branch lisdexamfet 2020-0 Yes 50mg Take 50 mg Univers amine 2-18 by mouth ity of (VYVANSE) 19:58: every [place] 50 mg 26 morning. Medical capsule Branch ARIPiprazol 2020-0 Yes 2mg Take 2 mg U nivers e (ABILIFY) 2-18 by mouth ity of 2 mg tablet 19:58: daily. [place] [address] Medical Branch lisdexamfet 2020-0 Yes 50mg Take 50 mg Univers amine 2-18 by mouth ity of (VYVANSE) 19:58: every [place] 50 mg 26 morning. Medical capsule Branch ARIPiprazol 2020-0 Yes 2mg Take 2 mg U nivers e (ABILIFY) 2-18 by mouth ity of 2 mg tablet 19:58: daily. [place] [address] Medical Branch lisdexamfet 2020-0 Yes 50mg Take 50 mg Univers amine 2-18 by mouth ity of (VYVANSE) 19:58: every [place] 50 mg 26 morning. Medical capsule Branch ARIPiprazol 2020-0 Yes 2mg Take 2 mg U nivers e (ABILIFY) 2-18 by mouth ity of 2 mg tablet 19:58: daily. [address] Branch lisdexamfet 2020-0 Yes 50mg Take 50 mg Univers amine 2-18 by mouth ity of (VYVANSE) 19:58: every [place] 50 mg 26 morning. Medical capsule Branch ARIPiprazol 2020-0 Yes 2mg Take 2 mg U nivers e (ABILIFY) 2-18 by mouth ity of 2 mg tablet 19:58: daily. [address] Branch lisdexamfet 2020-0 Yes 50mg Take 50 mg Univers amine 2-18 by mouth ity of (VYVANSE) 19:58: every [place] 50 mg 26 morning. Medical capsule Branch ARIPiprazol 2020-0 Yes 2mg Take 2 mg U nivers e (ABILIFY) 2-18 by mouth ity of 2 mg tablet 19:58: daily. [address] Branch lisdexamfet 2020-0 Yes 50mg Take 50 mg Univers amine 2-18 by mouth ity of (VYVANSE) 19:58: every [place] 50 mg 26 morning. Medical capsule Branch ARIPiprazol 2020-0 Yes 2mg Take 2 mg U nivers e (ABILIFY) 2-18 by mouth ity of 2 mg tablet 19:58: daily. [address] Branch lisdexamfet 2020-0 Yes 50mg Take 50 mg Univers amine 2-18 by mouth ity of (VYVANSE) 19:58: every [place] 50 mg 26 morning. Medical capsule Branch ARIPiprazol 2020-0 Yes 2mg Take 2 mg U nivers e (ABILIFY) 2-18 by mouth ity of 2 mg tablet 19:58: daily. [place] [address] Medical Branch lisdexamfet 2020-0 Yes 50mg Take 50 mg Univers amine 2-18 by mouth ity of (VYVANSE) 19:58: every [place] 50 mg 26 morning. Medical capsule Branch ARIPiprazol 2020-0 Yes 2mg Take 2 mg U nivers e (ABILIFY) 2-18 by mouth ity of 2 mg tablet 19:58: daily. [address] Branch lisdexamfet 2020-0 Yes 50mg Take 50 mg Univers amine 2-18 by mouth ity of (VYVANSE) 19:58: every [place] 50 mg 26 morning. Medical capsule Branch ARIPiprazol 2020-0 Yes 2mg Take 2 mg U nivers e (ABILIFY) 2-18 by mouth ity of 2 mg tablet 19:58: daily. [address] Branch lisdexamfet 2020-0 Yes 50mg Take 50 mg Univers amine 2-18 by mouth ity of (VYVANSE) 19:58: every [place] 50 mg 26 morning. Medical capsule Branch ARIPiprazol 2020-0 Yes 2mg Take 2 mg U nivers e (ABILIFY) 2-18 by mouth ity of 2 mg tablet 19:58: daily. [address] Branch lisdexamfet 2020-0 Yes 50mg Take 50 mg Univers amine 2-18 by mouth ity of (VYVANSE) 19:58: every [place] 50 mg 26 morning. Medical capsule Branch ARIPiprazol 2020-0 Yes 2mg Take 2 mg U nivers e (ABILIFY) 2-18 by mouth ity of 2 mg tablet 19:58: daily. [address] Branch lisdexamfet 2020-0 Yes 50mg Take 50 mg Univers amine 2-18 by mouth ity of (VYVANSE) 19:58: every [place] 50 mg 26 morning. Medical capsule Branch ARIPiprazol 2020-0 Yes 2mg Take 2 mg U nivers e (ABILIFY) 2-18 by mouth ity of 2 mg tablet 19:58: daily. [place] [address] Medical Branch lisdexamfet 2019-0 Yes 50mg Take 50 mg Univers amine 2-18 by mouth ity of (VYVANSE) 19:58: every [place] 50 mg 26 morning. Medical capsule Branch ARIPiprazol 2019-0 Yes 2mg Take 2 mg U nivers e (ABILIFY) 2-18 by mouth ity of 2 mg tablet 19:58: daily. [place] [address] Medical Branch lisdexamfet 2019-0 Yes 50mg Take 50 mg Univers amine 2-18 by mouth ity of (VYVANSE) 19:58: every [place] 50 mg 26 morning. Medical capsule Branch ARIPiprazol 2019-0 Yes 2mg Take 2 mg U nivers e (ABILIFY) 2-18 by mouth ity of 2 mg tablet 19:58: daily. [address] Branch lisdexamfet 2019-0 Yes 50mg Take 50 mg Univers amine 2-18 by mouth ity of (VYVANSE) 19:58: every [place] 50 mg 26 morning. Medical capsule Branch ARIPiprazol 2019-0 Yes 2mg Take 2 mg U nivers e (ABILIFY) 2-18 by mouth ity of 2 mg tablet 19:58: daily. [place] [address] Medical Branch lisdexamfet 2019-0 Yes 50mg Take 50 mg Univers amine 2-18 by mouth ity of (VYVANSE) 19:58: every [place] 50 mg 26 morning. Medical capsule Branch ARIPiprazol 2019-0 Yes 2mg Take 2 mg U nivers e (ABILIFY) 2-18 by mouth ity of 2 mg tablet 19:58: daily. [place] [address] Medical Branch lisdexamfet 2019-0 Yes 50mg Take [...] s 37 Medical Branch Somatropin 2014-0 Yes [id number] 3mg inject 3 Univers (NORDITROPI 5-05 mg under ity of N FLEXPRO) 00:00: the skin [place] 15 mg/1.5 00 daily. Medical mL (10 Branch mg/mL) PnIj Somatropin 2014-0 Yes [id number] 3mg inject 3 Univers (NORDITROPI 5-05 mg under ity of N FLEXPRO) 00:00: the [place] 15 mg/1.5 00 daily. Medical mL (10 Branch mg/mL) PnIj Somatropin 2014-0 Yes [id number] 3mg inject 3 Univers (NORDITROPI 5-05 mg under ity of N FLEXPRO) 00:00: the [place] 15 mg/1.5 00 daily. Medical mL (10 Branch mg/mL) PnIj Somatropin 2014-0 Yes [id number] 3mg inject 3 Univers (NORDITROPI 5-05 mg under ity of N FLEXPRO) 00:00: the [place] 15 mg/1.5 00 daily. Medical mL (10 Branch mg/mL) PnIj Somatropin 2014-0 Yes [id number] 3mg inject 3 Univers (NORDITROPI 5-05 mg under ity of N FLEXPRO) 00:00: the [place] 15 mg/1.5 00 daily. Medical mL (10 Branch mg/mL) PnIj Somatropin 2014-0 Yes [id number] 3mg inject 3 Univers (NORDITROPI 5-05 mg under ity of N FLEXPRO) 00:00: the [place] 15 mg/1.5 00 daily. Medical mL (10 Branch mg/mL) PnIj Somatropin 2014-0 Yes [id number] 3mg inject 3 Univers (NORDITROPI 5-05 mg under ity of N FLEXPRO) 00:00: the [place] 15 mg/1.5 00 daily. Medical mL (10 Branch mg/mL) PnIj Somatropin 2014-0 Yes [id number] 3mg inject 3 Univers (NORDITROPI 5-05 mg under ity of N FLEXPRO) 00:00: the [place] 15 mg/1.5 00 daily. Medical mL (10 Branch mg/mL) PnIj Somatropin 2014-0 Yes [id number] 3mg inject 3 Univers (NORDITROPI 5-05 mg under ity of N FLEXPRO) 00:00: the [place] 15 mg/1.5 00 daily. Medical mL (10 Branch mg/mL) PnIj Somatropin 0 Yes [id number] 3mg inject 3 Univers (NORDITROPI 5-05 mg under ity of N FLEXPRO) 00:00: the [place] 15 mg/1.5 00 daily. Medical mL (10 Branch mg/mL) PnIj Somatropin 2014- Yes [id number] 3mg inject 3 Univers (NORDITROPI 5-05 mg under ity of N FLEXPRO) 00:00: the [place] 15 mg/1.5 00 daily. Medical mL (10 Branch mg/mL) PnIj Somatropin Yes [id number] 3mg inject 3 Univers (NORDITROPI 5-05 mg under ity of N FLEXPRO) 00:00: the [place] 15 mg/1.5 00 daily. Medical mL (10 Branch mg/mL) PnIj Somatropin Yes [id number] 3mg inject 3 Univers (NORDITROPI 5-05 mg under ity of N FLEXPRO) 00:00: the [place] 15 mg/1.5 00 daily. Medical mL (10 Branch mg/mL) PnIj Somatropin Yes [id number] 3mg inject 3 Univers (NORDITROPI 5-05 mg under ity of N FLEXPRO) 00:00: the [place] 15 mg/1.5 00 daily. Medical mL (10 Branch mg/mL) PnIj Somatropin Yes [id number] 3mg inject 3 Univers (NORDITROPI 5-05 mg under ity of N FLEXPRO) 00:00: the [place] 15 mg/1.5 00 daily. Medical mL (10 Branch mg/mL) PnIj Somatropin 2014-0 Yes [id number] 3mg inject 3 Univers (NORDITROPI 5-05 mg under ity of N FLEXPRO) 00:00: the [place] 15 mg/1.5 00 daily. Medical mL (10 Branch mg/mL) PnIj Somatropin 2014- Yes [id number] 3mg inject 3 Univers (NORDITROPI 5-05 mg under ity of N FLEXPRO) 00:00: the [place] 15 mg/1.5 00 daily. Medical mL (10 Branch mg/mL) PnIj Somatropin Yes [id number] 3mg inject 3 Univers (NORDITROPI 5-05 mg under ity of N FLEXPRO) 00:00: the [place] 15 mg/1.5 00 daily. Medical mL (10 Branch mg/mL) PnIj Somatropin 2014- Yes [id number] 3mg inject 3 Univers (NORDITROPI 5-05 mg under ity of N FLEXPRO) 00:00: the [place] 15 mg/1.5 00 daily. Medical mL (10 Branch mg/mL) PnIj Somatropin 2014- Yes [id number] 3mg inject 3 Univers (NORDITROPI 5-05 mg under ity of N FLEXPRO) 00:00: the [place] 15 mg/1.5 00 daily. Medical mL (10 Branch mg/mL) PnIj Somatropin 2014- Yes [id number] 3mg inject 3 Univers (NORDITROPI 5-05 mg under ity of N FLEXPRO) 00:00: the [place] 15 mg/1.5 00 daily. Medical mL (10 Branch mg/mL) PnIj Somatropin 2020- No [id number] 3mg inject 3 Univers (NORDITROPI 5-05 04-12 [...] 21:32:00 108 mm[Hg] Univer sity of pressure [facility] Diastolic blood 2023-03-29 21:32:00 70 mm[Hg] Unive rsity of pressure [facility] Heart rate 2023-03-29 21:32:00 73 /min [facility] Respiratory rate 2023-03-29 21:32:00 18 /min [facility] Body height 2023-03-29 21:32:00 152.4 cm [facility] Body weight 2023-03-29 21:32:00 69.4 kg [facility] BMI 2023-03-29 21:32:00 29.88 kg/m2 [facility] Systolic blood 2022-11-15 19:38:00 109 mm[Hg] Univer sity of pressure [facility] Diastolic blood 2022-11-15 19:38:00 70 mm[Hg] Unive rsity of pressure [facility] Heart rate 2022-11-15 19:38:00 87 /min [facility] Respiratory rate 2022-11-15 19:38:00 16 /min [facility] 2022-11-15 19:38:00 152.4 cm [facility] [place] [facility] Body weight 2022-11-15 19:38:00 69.854 kg [facility] [place] [facility] BMI 2022-11-15 19:38:00 30.08 kg/m2 [facility] [place] [facility] Oxygen saturation in 2022-11-15 19:38:00 98 /min University of Arterial blood by [place] [employer] ashley Pulse oximetry Branch Systolic blood 2022-11-14 19:57:00 104 mm[Hg] Univer sity of pressure [place] [facility] Diastolic blood 2022-11-14 19:57:00 53 mm[Hg] Unive rsity of pressure [place] [facility] Heart rate 2022-11-14 19:57:00 84 /min [facility] [place] [facility] Respiratory rate 2022-11-14 19:57:00 18 /min Univ ersity [facility] [place] [facility] Body height 2022-11-14 19:57:00 152.4 cm [facility] [place] [facility] Body weight 2022-11-14 19:57:00 69.4 kg [facility] [place] [facility] BMI 2022-11-14 19:57:00 29.88 kg/m2 [facility] [place] [facility] Systolic blood 2022-11-10 17:40:00 107 mm[Hg] Univer sity of pressure [place] [facility] Diastolic blood 2022-11-10 17:40:00 68 mm[Hg] Unive rsity of pressure [place] [facility] Heart rate 2022-11-10 17:40:00 77 /min [facility] [place] [facility] Respiratory rate 2022-11-10 17:40:00 16 /min Univ ersity [facility] [place] [facility] Body height 2022-11-10 17:40:00 152.4 cm [facility] [place] [facility] Body weight 2022-11-10 17:40:00 68.72 kg [facility] [place] [facility] BMI 2022-11-10 17:40:00 29.59 kg/m2 [facility] [place] [facility] Oxygen saturation in 2022-11-10 17:40:00 98 /min University of Arterial blood by [place] [employer] ashley Pulse oximetry Branch Systolic blood 2020-01-07 14:30:00 108 mm[Hg] Univer sity of pressure [place] [facility] Diastolic blood 2020-01-07 14:30:00 67 mm[Hg] Unive rsity of pressure [place] [facility] Heart rate 2020-01-07 14:30:00 66 /min [facility] [place] [facility] Body temperature 2020-01-07 14:30:00 36.56 [place] Univ ersity [facility] [place] [facility] Respiratory rate 2020-01-07 14:30:00 16 /min Univ ersity [facility] [place] [facility] Body height 2020-01-07 14:30:00 152.4 cm [facility] [place] [facility] Body weight 2020-01-07 14:30:00 68.55 kg [facility] [place] [facility] BMI 2020-01-07 14:30:00 29.51 kg/m2 [facility] [place] [facility] Systolic blood 2019-11-28 20:21:00 112 mm[Hg] Univer sity of pressure [place] [facility] Diastolic blood 2019-11-28 20:21:00 77 mm[Hg] Unive rsity of pressure [place] [facility] Heart rate 2019-11-28 20:21:00 83 /min [facility] [place] [facility] Body temperature 2019-11-28 20:21:00 36.56 [place] Univ ers[facility] [place] [facility] Respiratory rate 2019-11-28 20:21:00 16 /min Univ ersity [facility] [place] [facility] Body height 2019-11-28 20:21:00 152.4 cm [facility] [place] [facility] Body weight 2019-11-28 20:21:00 70.081 kg [facility] [place] [facility] BMI 2019-11-28 20:21:00 30.17 kg/m2 [facility] [place] [facility] Systolic blood 2019-11-28 20:21:00 112 mm[Hg] Univer sity of pressure [place] [facility] Diastolic blood 2019-11-28 20:21:00 77 mm[Hg] Unive rsity of pressure [place] [facility] Heart rate 2019-11-28 20:21:00 83 /min [facility] [place] [facility] Body temperature 2019-11-28 20:21:00 36.56 [place] Univ ers[facility] [place] [facility] Respiratory rate 2019-11-28 20:21:00 16 /min Univ [facility] [place] [facility] Body height 2019-11-28 20:21:00 152.4 cm [facility] [place] [facility] Body weight 2019-11-28 20:21:00 70.081 kg [facility] [place] [facility] BMI 2019-11-28 20:21:00 30.17 kg/m2 [facility] [place] [facility] Systolic blood 2019-11-24 12:57:00 117 mm[Hg] Univer sity of pressure [place] [facility] Diastolic blood 2019-11-24 12:57:00 59 mm[Hg] Unive rsity of pressure [place] [facility] Heart rate 2019-11-24 12:57:00 99 /min [facility] [place] [facility] Body temperature 2019-11-24 12:57:00 36.44 [place] Univ ers[facility] [place] [facility] Respiratory rate 2019-11-24 12:57:00 18 /min Univ ers[facility] [place] [facility] Oxygen saturation in 2019-11-24 12:57:00 100 /min University of Arterial blood by [facility] ashley Pulse oximetry Branch Body height 2019-11-22 17:18:00 152.4 cm [facility] [place] [facility] Body weight 2019-11-22 17:18:00 72.122 kg [facility] [place] [facility] BMI 2019-11-22 17:18:00 31.05 kg/m2 [facility] [place] [facility] Systolic blood 2019-11-24 12:57:00 117 mm[Hg] Univer sity of pressure [place] [facility] Diastolic blood 2019-11-24 12:57:00 59 mm[Hg] Unive rsity of pressure [place] [facility] Heart rate 2019-11-24 12:57:00 99 /min [facility] [place] [facility] Body temperature 2019-11-24 12:57:00 36.44 [place] Univ [facility] [place] [facility] Respiratory rate 2019-11-24 12:57:00 18 /min Univ ers[facility] [place] [facility] Oxygen saturation in 2019-11-24 12:57:00 100 /min [facility] of Arterial blood by [place] [employer] ashley Pulse oximetry Branch Body height 2019-11-22 17:18:00 152.4 cm [facility] [place] [facility] Body weight 2019-11-22 17:18:00 72.122 kg [facility] [place] [facility] BMI 2019-11-22 17:18:00 31.05 kg/m2 [facility] [place] [facility] Systolic blood 2019-11-18 13:42:00 124 mm[Hg] Univer sity of pressure [place] [facility] Diastolic blood 2019-11-18 13:42:00 70 mm[Hg] Unive rsity of pressure [place] [facility] Heart rate 2019-11-18 13:42:00 79 /min [facility] [place] [facility] Body temperature 2019-11-18 13:42:00 36.17 [place] [facility] [place] [facility] Respiratory rate 2019-11-18 13:42:00 16 /min Univ [facility] [place] [facility] Body height 2019-11-18 13:42:00 152.4 cm [facility] [place] [facility] Body weight 2019-11-18 13:42:00 73.057 kg [facility] [place] [facility] BMI 2019-11-18 13:42:00 31.46 kg/m2 [facility] [place] [facility] Systolic blood 2019-11-18 13:42:00 124 mm[Hg] Univer sity of pressure [place] [facility] Diastolic blood 2019-11-18 13:42:00 70 mm[Hg] Unive rsity of pressure [place] [facility] Heart rate 2019-11-18 13:42:00 79 /min [facility] [place] [facility] Body temperature 2019-11-18 13:42:00 36.17 [place] [facility] [place] [facility] Respiratory rate 2019-11-18 13:42:00 16 /min Univ [facility] [place] [facility] Body height 2019-11-18 13:42:00 152.4 cm [facility] [place] [facility] Body weight 2019-11-18 13:42:00 73.057 kg [facility] [place] [facility] BMI 2019-11-18 13:42:00 31.46 kg/m2 [facility] [place] [facility] Systolic blood 2019-11-11 13:57:00 118 mm[Hg] Univer sity of pressure [place] [facility] Diastolic blood 2019-11-11 13:57:00 69 mm[Hg] Unive rsity of pressure [place] [facility] Heart rate 2019-11-11 13:57:00 82 /min [facility] [place] [facility] Body temperature 2019-11-11 13:57:00 36.33 [place] Univ [facility] [place] [facility] Respiratory rate 2019-11-11 13:57:00 16 /min Univ [facility] [place] [facility] Body height 2019-11-11 13:57:00 152.4 cm [facility] [place] [facility] Body weight 2019-11-11 13:57:00 71.697 kg [facility] [place] [facility] BMI 2019-11-11 13:57:00 30.87 kg/m2 [facility] [place] [facility] Systolic blood 2019-11-11 13:57:00 118 mm[Hg] Univer sity of pressure [place] [facility] Diastolic blood 2019-11-11 13:57:00 69 mm[Hg] Unive rsity of pressure [place] [facility] Heart rate 2019-11-11 13:57:00 82 /min [facility] [place] [facility] Body temperature 2019-11-11 13:57:00 36.33 [place] Univ [facility] [place] [facility] Respiratory rate 2019-11-11 13:57:00 16 /min Univ [facility] [place] [facility] Body height 2019-11-11 13:57:00 152.4 cm [facility] [place] [facility] Body weight 2019-11-11 13:57:00 71.697 kg [facility] [place] [facility] BMI 2019-11-11 13:57:00 30.87 kg/m2 [facility] [place] [facility] Systolic blood 2019-10-27 15:32:00 114 mm[Hg] Univer sity of pressure [place] [facility] Diastolic blood 2019-10-27 15:32:00 66 mm[Hg] Unive rsity of pressure [place] [facility] Heart rate 2019-10-27 15:32:00 83 /min [facility] [place] [facility] Body temperature 2019-10-27 15:32:00 36.89 [place] [facility] [place] [facility] Respiratory rate 2019-10-27 15:32:00 16 /min Univ [facility] [place] [facility] Body height 2019-10-27 15:32:00 152.4 cm [facility] [place] [facility] Body weight 2019-10-27 15:32:00 70.308 kg [facility] [place] [facility] BMI 2019-10-27 15:32:00 30.27 kg/m2 [facility] [place] [facility] Systolic blood 2019-10-13 15:00:00 116 mm[Hg] Univer sity of pressure [place] [facility] Diastolic blood 2019-10-13 15:00:00 67 mm[Hg] Unive rsity of pressure [place] [facility] Heart rate 2019-10-13 15:00:00 84 /min [facility] [place] [facility] Body temperature 2019-10-13 15:00:00 36.39 [place] [facility] [place] [facility] Respiratory rate 2019-10-13 15:00:00 16 /min Univ [facility] [place] [facility] Body height 2019-10-13 15:00:00 152.4 cm [facility] [place] [facility] Body weight 2019-10-13 15:00:00 69.31 kg [facility] [place] [facility] BMI 2019-10-13 15:00:00 29.84 kg/m2 [facility] [place] [facility] Systolic blood 2019-10-02 15:13:00 128 mm[Hg] Univer sity of pressure [place] [facility] Diastolic blood 2019-10-02 15:13:00 71 mm[Hg] Unive rsity of pressure [place] [facility] Heart rate 2019-10-02 15:13:00 81 /min [facility] [place] [facility] Body temperature 2019-10-02 15:13:00 36.22 [place] [facility] [place] [facility] Respiratory rate 2019-10-02 15:13:00 16 /min Univ [facility] [place] [facility] Body height 2019-10-02 15:13:00 152.4 cm [facility] [place] [facility] Body weight 2019-10-02 15:13:00 67.586 kg [facility] [place] [facility] BMI 2019-10-02 15:13:00 29.10 kg/m2 [facility] [place] [facility] Systolic blood 2019-09-30 19:43:00 113 mm[Hg] Univer sity of pressure [place] [facility] Diastolic blood 2019-09-30 19:43:00 67 mm[Hg] Unive rsity of pressure [place] [facility] Heart rate 2019-09-30 19:43:00 91 /min [facility] [place] [facility] Body temperature 2019-09-30 19:43:00 36.22 [place] [facility] [place] [facility] Respiratory rate 2019-09-30 19:43:00 16 /min [facility] [place] [facility] Body height 2019-09-30 19:43:00 152.4 cm [facility] [place] [facility] Body weight 2019-09-30 19:43:00 67.189 kg [facility] [place] [facility] BMI 2019-09-30 19:43:00 28.93 kg/m2 [facility] [place] [facility] Procedures Procedure Date / Time Performing Clinician Source Performed INSURANCE CORRESPONDENCE 2022-11-21 05:01:00 Doctor Tiff, [facility] POCT TEST 2022-11-15 00:00:00 Ruddy Colbert [facility] ASSIGNMENT OF BENEFITS 2022-11-10 17:19:34 [facility] 2020-01-07 14:33:00 Rashid Cha [facility] CONSENT FOR CONTRACEPTION 2020-01-07 05:01:00 Doctor Tiff, [facility] CBC WITH DIFFERENTIAL 2019-11-23 09:13:00 Reynold Jones [facility] ARTERIAL CORD GAS 2019-11-22 23:50:00 [facility] VENOUS CORD GAS 2019-11-22 23:49:00 [facility] SECTION 2019-11-22 23:00:00 Fidelia Billings [facility] HEPATITIS B SURFACE 2019-11-22 20:42:00 [facility] ANTIGEN [facility] GALV ONLY - SYPHILIS 2019-11-22 20:42:00 [facility] IGG/IGM [facility] HB ABO GROUPING 2019-11-22 20:02:00 [facility] RHO (D) IMMUNE GLOBULIN 2019-11-22 20:02:00 Reynold Jones [facility] CORONAVIRUS COVID-19 2019-11-22 17:09:00 [facility] URINALYSIS 2019-11-18 13:49:[address] [facility] POCT URINALYSIS 2019-11-11 14:00:[address] [facility] POCT URINALYSIS 2019-10-27 17:09:[address] [facility] AUTHORIZATION TO RELEASE 2019-10-09 06:01:00 Doctor Matthew, [facility] PHI TO [facility] TDAP VACCINE, >11 YRS, IM 2019-09-30 20:39:21 Carla Rajan [facility] FLU VACC ([phone]), 6+ 2019-09-30 20:22:55 Carla Rajan [facility] MONTHS, IM, QUAD [facility] POCT URINALYSIS W/O 2019-09-30 19:35:00 Carla Rajan [facility] [place] SPECIFIC GRAVITY [facility] POCT TEST 2019-09-30 19:34:00 Carla Rajan [facility] ASSIGNMENT OF BENEFITS 2019-09-30 19:11:56 [facility] [place] Encoun[facility] Start End Encounter Admission Attending Care Care Encounter Source Date/Time Date/Time Type Type Clinicians Facility Department ID 2021-06-09 Outpatient [facility] [id number] Univers 17:44:35 [facility] 2023-05-17 2023-05-17 Outpatient R RUDDY COLBERT [facility] B [id number] Univers 15:30:00 15:30:00 RUDDY COLBERT [facility] 2023-04-30 2023-04-30 Outpatient Bernabe TILLEY [facility] [id number] Univers 16:00:00 16:00:00 ERIN christie [facility] 2023-04-27 2023-04-27 Outpatient Bernabe TILLEY [facility] [id number] Univers 13:00:00 13:00:00 ERIN christie [facility] 2023-03-29 2023-03-29 Outpatient R RUDDY COLBERT [facility] B [id number] Univers 16:30:00 16:37:41 RUDDY COLBERT [facility] 2023-03-29 2023-03-29 Office Wesley COJUAN [place] [id number] Univers 16:30:00 16:37:41 Visit Ruddy BULLARD [id number] it y of WOMEN'S [id number] [facility] [id number] [place] [id number] Branch 2023-02-07 2023-02-07 Outpatient R RUDDY COLBERT [facility] B [id number] Univers 13:00:00 13:00:00 RUDDY COLBERT [facility] 2022-12-13 2022-12-13 Outpatient [facility] [id number]- Moy 16:42:16 16:42:16 [id number] F Gee 2022-12-13 2022-12-13 Outpatient R [facility] [id number] Univers 15:15:00 15:15:00 ity of [facility] 2022-11-22 2022-11-22 Telephone [facility] 1.2.840.114 [id number] Univers 00:00:00 00:00:00 Brittni BULLARD 350.1.13.10 it y [place] [facility] [id number] [address] 2022-11-21 2022-11-21 Orders Doctor MARTE 1.2.840.114 [id number] Univers 00:00:00 00:00:00 Only Unassigned, LUKE 350.1.13.10 ity of [place] [facility] 4.2.7.2.686 Juan as [id number] [place] [address] [address] 2022-11-20 2022-11-20 Telephone [facility] 1.2.840.11 [id number] Univers 00:00:00 00:00:00 Ruddy BULLARD 350.1.13.10 it [place] [facility] [id number] [address] 2022-11-16 2022-11-16 Telephone [facility] 1.2.840.11 [id number] Univers 00:00:00 00:00:00 Ruddy BULLARD 350.1.13.10 it y of WOMEN'S 4.2.7.2.686 [facility] [id number] [address] 2022-11-15 2022-11-15 Outpatient R RUDDY COLBERT [facility] B [id number] Univers 14:30:00 15:04:[address] [facility] 2022-11-15 2022-11-15 Office [facility] 1.2.840.114 [id number] Univers 14:30:00 15:04:36 Visit Ruddy BULLARD 350.1.13.10 it [place] [id number] [address] 2022-11-14 2022-11-14 Out[facility] [id number] Univers 15:00:00 15:16:26 [facility] 2022-11-14 2022-11-14 Office [facility] 1.2.840.114 [id number] Univers 15:00:00 15:16:26 Visit Ruddy BULLARD 350.1.13.10 it [place] [id number] [address] 2022-11-10 2022-11-10 Outpatient R [facility] [id number] Univers 13:00:00 13:04:[address] 2022-11-10 2022-11-10 Office [facility] 1.2.840.114 [id number] Univers 13:00:00 13:04:39 Visit Ruddy BULLARD 350.1.13.10 it [place] [id number] [address] 2022-11-10 2022-11-10 Orders Doctor ESTUARDO 1.2.840.114 [id number] Univers 00:00:00 00:00:00 Only Unassigned, LUKE 350.1.13.10 ity of [place] [facility] 4.2.7.2.686 Juan as [phone] [place] [address] [address] 2020-11-02 2020-11-02 Patient Zander [facility] 1.2.840.114 [id number] Univers 00:00:00 00:00:00 Outreach Declan BULLOCK 350.1.13.10 i ty of [facility] 4.2.7.2.686 [place] [id number] [place] [address] [place] 2020-01-07 2020-01-07 Office Hca, [facility] 1.2.840.114 [id number] Univers 09:23:30 10:10:21 Visit 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 350.1.13.10 ity of [facility] 4.2.7.2.686 Juan as MATERNAL [phone] Med ical & CHILD [address] [place] [address] 2020-01-07 2020-01-07 Outpatient R STARLA [facility] [id number] [facility] 09:00:00 09:00:00 RASHID christie o f [facility] 2020-01-07 2020-01-07 Orders Doctor ESTUARDO 1.2.840.114 [id number] Univers 00:00:00 00:00:00 Only Unassigned, LUKE 350.1.13.10 ity of [place] [facility] 4.2.7.2.686 Juan as [id number] [address] 2019-12-16 2019-12-16 Outpatient R STARLA [facility] [id number] [facility] 09:15:00 09:15:00 RASHID murrayjamaica o oscar [facility] 2019-12-16 2019-12-[address] [facility] 1.2.840.114 [id number] Univers 07:34:01 09:03:14 ne Visit Rashid Bernabe SPLASH LINE OPERATOR 350.1.13.10 ity of [facility] 4.2.7.2.686 Juan as MATERNAL [id number] [facility] & CHILD [address] [place] [address] 2019-12-16 2019-12-[address] [facility] 1.2.840.114 [id number] 07:34:01 09:03:14 ne Visit Rashid 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 350.1.13.10 REGIONAL 4.2.7.2.686 MATERNAL [id number] & [address] 2019-11-28 2019-11-28 Nurse Visit, RebecaRmchp Nurse [facility] 1.2 .840.114 [id number] Univers 14:57:15 15:27:42 Visit Akinsipe, Carla C SPLASH LINE OPERATOR 350.1.13. 10 ity of REGIONAL 4.2.7.2.686 Juan as MATERNAL [id number] [facility] & CHILD [address] [place] [address] 2019-11-28 2019-11-28 Nurse Visit, [facility] 1.2.840.114 [id number] 14:57:15 15:27:42 Visit [facility] SPLASH LINE OPERATOR 350.1.13.10 Nurse [facility] 4.2.7.2.686 MATERNAL [id number] & CHILD [address] [place] [address] 2019-11-28 2019-11-28 Outpatient R AKINSIPE, [facility] [id number] Univers 15:00:00 15:00:00 CARLA ity o [facility] 2019-11-25 2019-11-25 Outpatient R AKINSIPE, [facility] [id number] Univers 09:30:00 09:30:00 CARLA ity o [facility] 2019-11-25 2019-11-25 Outpatient R AKINSIPE, [facility] [id number] Univers 09:15:00 09:15:00 CARLA ity o [facility] 2019-11-22 2019-11-24 [facility] 1.2.588.736 [id number] [facility] 11:49:00 12:16:00 Encounter Fidelia [place] 350.1.13.10 ity of [facility] 4.2.7.2.686 Juan as [id number] [address] 2019-11-22 2019-11-24 [facility] 1.2.347.421 [id number] 11:49:00 12:16:00 Encounter Fidelia [place] 350.1.13.10 HOSPITAL 4.2.7.2.686 [id number] 038 2019-11-18 2019-11-18 Routine Akinsipe, [facility] 1.2.920.090 [id number] Univers 08:34:45 08:55:27 Carla C SPLASH LINE OPERATOR 350.1.13.10 ity of Visit REGIONAL 4.2.7.2.686 Juan as MATERNAL [id number] [facility] & CHILD [address] [place] [address] 2019-11-18 2019-11-18 Routine Akinsipe, [facility] 1.2.624.575 [id number] 08:34:45 08:55:27 Carla C SPLASH LINE OPERATOR 350.1.13.10 Visit REGIONAL 4.2.7.2.686 MATERNAL [id number] & CHILD [address] [facility] 2019-11-18 2019-11-18 Outpatient R AKINSIPE, [facility] [id number] Univers 08:45:00 08:45:00 CARLA ity o f [facility] 2019-11-11 2019-11-11 Routine Akinsipe, [facility] 1.2.704.842 [id number] Univers 08:49:21 09:26:07 Carla C SPLASH LINE OPERATOR 350.1.13.10 ity of Visit REGIONAL 4.2.7.2.686 Juan as MATERNAL [phone] Med ical & CHILD [address] [place] [address] 2019-11-11 2019-11-11 Routine Akinsipe, [facility] 1.2.570.736 [id number] 08:49:21 09:26:07 Carla C SPLASH LINE OPERATOR 350.1.13.10 Visit REGIONAL 4.2.7.2.686 MATERNAL [phone] & CHILD [address] [place] [address] 2019-11-11 2019-11-11 Outpatient R AKINSIPE, [facility] [id number] Univers 09:00:00 09:00:00 CARLA ity o f [facility] 2019-10-27 2019-10-27 Routine Akinsipe, [facility] 1.2.868.577 [id number] Univers 09:42:46 12:09:33 Carla C SPLASH LINE OPERATOR 350.1.13.10 ity of Visit REGIONAL 4.2.7.2.686 Juan as MATERNAL [id number] [facility] ical & CHILD [address] [place] [address] 2019-10-27 2019-10-27 Outpatient R AKINSIPE, [facility] [id number] Univers 09:30:00 09:30:00 CARLA ity o f [facility] 2019-10-13 2019-10-13 Routine Faculty, Han Basilio [facility] 1.2 .840.114 [id number] Univers 08:47:13 11:29:01 AishwaryaLeandro SPLASH LINE OPERATOR 350.1.13.10 ity of Visit [facility] 4.2.7.2.686 Juan as MATERNAL [id number] [facility] ical & CHILD [address] [place] [address] 2019-10-13 2019-10-13 Outpatient R [facility] [id number] Univers 09:00:00 09:00:00 ity of [facility] 2019-10-09 2019-10-09 Orders Doctor ESTUARDO 1.2.840.114 [id number] Univers 00:00:00 00:00:00 Only Unassigned, LUKE 350.1.13.[address] [facility] 4.2.7.2.686 Juan as [id number] [address] 2019-10-02 2019-10-02 [facility] 1.2 .840.114 [id number] [facility] 09:02:47 09:32:54 Visit Carla Rajan SPLASH LINE OPERATOR 350.1.13. 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 10 ity of [facility] 4.2.7.2.686 Juan as MATERNAL [id number] [facility] ical & CHILD [address] [facility] 2019-10-01 2019-10-01 Trolley Car Overhauler [facility] 1.2.840. 114 [id number] Univers 08:36:33 08:41:17 Visit Carla Rajan SPLASH LINE OPERATOR 350.1.13. 10 ity of [facility] 4.2.7.2.686 Juan as MATERNAL [id number] [facility] ical & CHILD [address] [place] [address] 2019-10-01 2019-10-01 Abstract Satinder [facility] 1.2.840.114 [id number] Univers 00:00:00 00:00:00 Carla C SPLASH LINE OPERATOR 350.1.13.10 ity of REGIONAL 4.2.7.2.686 Juan as MATERNAL [id number] [facility] ical & CHILD [address] [place] [address] 2019-10-01 2019-10-01 Telephone [facility] 1.2.840.114 [id number] Univers 00:00:00 00:00:00 Carla C SPLASH LINE OPERATOR 350.1.13.10 ity of [facility] 4.2.7.2.686 Juan as MATERNAL [id number] [facility] ical & CHILD [address] [place] [address] 2019-09-30 2019-09-30 Initial [facility] 1.2.489.118 [id number] Univers 13:30:37 14:59:32 Carla C SPLASH LINE OPERATOR 350.1.13.10 ity of Visit [facility] 4.2.7.2.686 Juan as MATERNAL [phone] [facility] [address] [place] [address] 2019-09-30 2019-09-30 Orders Doctor ESTUARDO 1.2.840.114 [id number] Univers 00:00:00 00:00:00 Only Unassigned, LUKE 350.1.13.10 ity of [place] [facility] 4.2.7.2.686 Juan as [id number] [address] Results Test Description Test Time Test Comments Results Result Comments Source POCT TEST 2022-11-15 19:42:00 Test Item Value Reference Range Interpretation Comme nts POCT PREG (test code = 1605) Negative On board controls acceptable with C Line (test code = 3574) Yes POCT PREG LOT # (test code = 3575) POCT PREG TEST DATE (test code = 3576) [facility] [id number] 19:42:00 Test Item Value Reference Range Interpretation Comments POCT PREG (test code = 1605) Negative On board controls acceptable with C Yes Line (test code = 3574) POCT PREG LOT # (test code = 3575) POCT PREG TEST DATE (test code = 3576) [facility] [id number] 14:33:00 Test Item Value Reference Range Interpretation Comments POCT PREG (test code = 1605) Negative On board controls acceptable with C Yes Line (test code = 3574) POCT PREG LOT # (test code = 3575) POCT PREG TEST DATE (test code = 3576) [facility] [id number] 14:33:00 Test Item Value Reference Range Interpretation Comments POCT PREG (test code = 1605) Negative On board controls acceptable with C Yes Line (test code = 3574) POCT PREG LOT # (test code = 3575) POCT PREG TEST DATE (test code = 3576) [facility] - SYPHILIS [id number] 15:38:00 Test Item Value Reference Range Interpretation Comments Syphilis IgG/IgM (test Non-reactive Non-reactive code = 53194-0) JOSE RAFAEL (test code = JOSE RAFAEL) Non-reactive - No serologic evidence of T. pallidum infection. Cannot exclude incubating or early syphilis. Submit a second specimen in 2-4 weeks if syphilis is clinically suspected. Equivocal - Further testing to follow. Reactive - Further testing to follow. Lab Interpretation (test Normal code = 30761-4) [facility] CenterCB WITH [id number] 09:57:00 Test Item Value Reference Range Interpretation Comments WBC (test code = See_Comment H [Automated 5090-2) message] The system which generated this result transmit gianna reference range : 4.50 - 13.50 10*3/?L. The reference range was not used to interpret this result as normal/abnormal . RBC (test code = See_Comment L [Automated 109-8) message] The system which generated this result [...] RDW-SD (test code = 44.9 fL 38.5-49 92035-1) RDW-CV (test code = 13.5 % 11.5-14 788-0) PLT (test code = See_Comment [Automated 777-3) message] The system which generated this result transmit gianna reference range : 135 - 361 10*3/ ?L. The reference range was not u sed to interpret th is result as normal/abnormal . MPV (test code = 11.5 fL 9.4-13.3 70652-8) NRBC/100 WBC (test See_Comment [Automat ed code = 4451450234) message] The system which generated this result transmit gianna reference range : 0.0 - 10.0 /100 WBCs. The reference range was not used to interpret this result as normal/abnormal . NRBC x10^3 (test code <0.01 See_Comment [Auto mated = 5573677947) message] The system which generated this result transmit gianna reference range : 10*3/?L. The reference range was not used to interpret this result as normal/abnormal . GRAN MAT (NEUT) % 82.3 % (test code = 770-8) IMM GRAN % (test code 1.00 % = 4284590206) LYMPH % (test code = 10.2 % 736-9) MONO % (test code = 5.6 % 5905-5) EOS % (test code = 0.5 % 713-8) BASO % (test code = 0.4 % 706-2) GRAN MAT x10^3(ANC) 14.09 10*3/uL 1.5-10.3 H (test code = 9417376761) IMM GRAN x10^3 (test 0.17 10*3/uL 0-0.06 H code = 7534333355) LYMPH x10^3 (test code 1.74 10*3/uL 0.7-7.4 = 731-0) MONO x10^3 (test code 0.96 10*3/uL 0-0.5 H = 742-7) EOS x10^3 (test code = 0.09 10*3/uL 0-0.4 711-2) BASO x10^3 (test code 0.06 10*3/uL 0-0.1 = 704-7) BANDS (test code = Increased A 2345680547) Lab Interpretation Abnormal (test code = 64440-8) [facility] Center[facility]D) IMMUNE [id number] 04:07:12 Test Item Value Reference Range Interpretation Comments RHIG CANDIDATE? No- see comment Patient i s not a (test code = candidate for R hIg- 5055) Patient is Rh Positive.Perfor med at [facility] Laboratory Services - [facility] Blood [address] [address]Zagg Free: [phone] A No. [id number] [facility] CenterARTERIAL CORD [id number] 23:57:00 Test Item Value Reference Range Interpretation Comments BASE EXCESS, CORD (test mEq/L code = 4944337359) AC PH, CORD (BEAKER) 7.18-7.38 (test code = 5335928149) PC02, CORD (test code = See_Comment H [Au tomated message] 8102508659) The system [employer] generated this result transmitted ref erence range: 32 - 66 mmHg. The reference r devin was not used to interpret this result as normal/abnor mal. PO2, CORD (test code = See_Comment [Aut omated message] 4679831454) The system [employer] generated this result transmitted ref erence range: 10 - 30 mmHg. The reference r devin was not used to interpret this result as normal/abnor mal. BICARBONATE, CORD (test See_Comment H [Au tomated message] code = 5319629949) The syste m which generated this result transmitted ref erence range: 17 - 27 mEq/L. The reference r devin was not used to interpret this result as normal/abnor mal. Lab Interpretation (test Abnormal code = 29144-5) [facility] CenterVENOUS CORD [id number] 23:52:00 Test Item Value Reference Range Interpretation Comments VENOUS BASE EXCESS, CORD mEq/L (test code = 7045149535) VENOUS PH, CORD (test 7.25-7.45 code = 3460564210) VENOUS PC02, CORD (test See_Comment H [Au tomated message] code = 6641582600) The syste m which generated this result transmitted ref erence range: 27 - 49 mmHg. The reference r devin was not used to interpret this result as normal/abnor mal. VENOUS PO2, CORD (test See_Comment [Aut omated message] code = 0707338793) The syste m which generated this result transmitted ref erence range: 17 - 41 mmHg. The reference r devin was not used to interpret this result as normal/abnor mal. VENOUS BICARBONATE, CORD See_Comment [A utomated message] (test code = 9667810488) The system which generated this result transmitted ref erence range: 12 - 29 mEq/L. The reference r devin was not used to interpret this result as normal/abnor mal. Lab Interpretation (test Abnormal code = 24224-1) [facility] CenterHepatitis B Surface [id number] 22:06:00 Test Item Value Reference Range Interpretation Comments HBsAg Semi-Quantitative (test code = Negative Negative 5195-3) [facility] CenterType and Screen - ONCE [id number] 21:39:44 Test Item Value Reference Range Interpretation Comments ABO & RH (test code O POSITIVE Performe d at [facility] = 20) Laboratory Serv [facility] [place] [address] s [address]Krtl Free: [phone] A No. [id number] IAT (test code = Negative Performed a t [facility] 1185) Laboratory Serv [facility] [place] [address] s [address]Kant Free: [phone] A No. [id number] [facility] CenterCORONAVIRUS COVID-19 [id number] 18:00:00 Test Item Value Reference Range Interpretation Comments SARS-CoV-2 (test code = Not Detected Not Detected 28489-5) JOSE RAFAEL (test code = JOSE RAFAEL) ID NOW COVID-19 Assay is an isothermal nucleic acid amplification test intended for the qualitative detection of nucleic acid from SARS-CoV-2 viral RNA in nasopharyngeal (PRINTER MAINTAINER) specimens. It is used under Emergency Use [...] indicated. Lab Interpretation Normal (test code = 75384-8) [facility] URINALYSIS W SPECIFIC [id number] 13:49:00 Test Item Value Reference Range Interpretation [...] POCT U APPEAR (test code = 3267) [facility] URINALYSIS W SPECIFIC [id number] 14:00:00 Test Item Value Reference Range Interpretation [...] POCT U APPEAR (test code = 3267) [facility] URINALYSIS W SPECIFIC [id number] 14:00:00 Test Item Value Reference Range Interpretation [...] POCT U APPEAR (test code = 3267) [facility] URINALYSIS W SPECIFIC [id number] 17:09:00 Test Item Value Reference Range Interpretation [...] POCT U APPEAR (test code = 3267) [facility] URINALYSIS W/O SPECIFIC [id number] 19:35:00 Test Item Value Reference Range Interpretation [...] code = 3257) Neg Negative - Negative [facility] URINALYSIS W/O SPECIFIC [id number] 19:35:00 Test Item Value Reference Range Interpretation [...] code = 3257) Neg Negative - Negative [facility] URINALYSIS W/O SPECIFIC [id number] 19:35:00 Test Item Value Reference Range Interpretation [...] code = 3257) Neg Negative - Negative [facility] URINALYSIS W/O SPECIFIC [id number] 19:35:00 Test Item Value Reference Range Interpretation [...] code = 3257) Neg [id number] 19:34:00 Test Item Value Reference Range Interpretation Comments POCT PREG (test code = 1605) Positive On board controls acceptable with C Yes Line (test code = 3574) POCT PREG LOT # (test code = 3575) POCT PREG TEST DATE (test code = 3576) [facility]PO[facility] [id number] 19:34:00 Test Item Value Reference Range Interpretation Comments POCT PREG (test code = 1605) Positive On board controls acceptable with C Yes Line (test code = 3574) POCT PREG LOT # (test code = 3575) POCT PREG TEST DATE (test code = 3576) [facility]PO[facility] [id number] 19:34:00 Test Item Value Reference Range Interpretation Comments POCT PREG (test code = 1605) Positive On board controls acceptable with C Yes Line (test code = 3574) POCT PREG LOT # (test code = 3575) POCT PREG TEST DATE (test code = 3576) [facility]PO[facility] [id number] 19:34:00 Test Item Value Reference Range Interpretation Comments POCT PREG (test code = 1605) Positive On board controls acceptable with C Yes Line (test code = 3574) POCT PREG LOT # (test code = 3575) POCT PREG TEST DATE (test code = 3576) [facility]
--- NOTE | 2023-05-31 02:46 | ER ---
Nurse's Notes [facility] Name: Atiya Castellanos Age: 22 yrs Sex: Female : 2000 Arrival Date: 05/31/2023 Time: 01:00 Bed 8 Private MD: Diagnosis: Viral Illness Presentation: 05/31 01:17 Chief complaint: Patient states: Sore throat for 2 days and test. jw7 01:17 Acuity: CHRIS 5 jw7 01:17 Risk Assessment: Do you want to hurt yourself or someone else? Patient reports no jw7 desire to harm self or others. 01:17 Coronavirus screen: At this time, the client does not indicate any symptoms associated jw7 with coronavirus-19. Ebola Screen: No symptoms or risks identified at this time. Initial Sepsis Screen: Does the patient meet any 2 criteria? No. Patient's initial sepsis screen is negative. Does the patient have a suspected source of infection? No. Patient's initial sepsis screen is negative. Onset of symptoms was May 29, 2023. 01:17 Method Of Arrival: Ambulatory [facility] Triage Assessment: 01:17 General: Appears in no apparent distress. comfortable, Behavior is calm, cooperative. jw7 01:17 Pain: Complains of pain in Right side of throat Pain does not radiate. Pain currently jw is 7 out of 10 on a pain scale. Quality of pain is described as burning, gnawing, stinging, Pain began 2-3 days ago. Is continuous. EENT: Throat is reddened Reports Right side throat pain. Neuro: Montanez Agitation-Sedation Scale (RASS): 0 - Alert and Calm. Cardiovascular: Capillary refill < 3 seconds Clubbing of nail beds is absent JVD is absent Patient's skin is warm and dry. Respiratory: Airway is patent Trachea midline Respiratory effort is even, unlabored, Respiratory pattern is regular, symmetrical. GI: Abdomen is flat, non-distended, Bowel sounds present X 4 quads. : No deficits noted. No signs and/or symptoms were reported regarding the genitourinary system. Derm: Skin is intact, is healthy with good turgor, Skin is dry, Skin is normal, Skin temperature is warm. Musculoskeletal: Circulation, motion, and sensation intact. Range of motion: intact in all extremities. 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 - Social history:: Smoking status: Patient denies any tobacco usage or history of. Screenin:17 [facility] ED Fall Risk Assessment (Adult) History of falling in the last 3 months, jw7 including since admission No falls in past 3 months (0 pts) Score/Fall Risk Level 0 - 2 = Low Risk Oriented to surroundings, Maintained a safe environment. Abuse screen: Denies threats or abuse. Denies injuries from another. Nutritional screening: No deficits noted. Tuberculosis screening: No symptoms or risk factors identified. Assessment: 01:20 General: SEE TRIAGE NOTE. bp 02:52 Reassessment: DC HOME AMBULATORY WITH FAMILY. bp Vital Signs: 01:17 BP 113 / 84; Pulse 80; Resp 16 S; Pulse Ox 100% on R/A; Weight 65.77 kg; Height 5 ft. 3 jw7 in. ; Pain 7/10; 02:51 BP 110 / 63; Pulse 78; Resp 16; Temp 98; Pulse Ox 100% ; bp 01:17 Body Mass Index 25.69 (65.77 kg, 160.02 cm) jw7 01:17 Pain Scale: Adult jw7 ED Course: 01:02 Patient arrived in ED. mr 01:04 Ventura Hathaway MD is Attending Physician. ec2 01:17 Denise Smith RN is Primary Nurse. jw7 01:17 Patient has correct armband on for positive identification. Bed in low position. Call [facility] light in reach. 01:17 Arm band placed on. jw7 01:18 Triage completed. jw7 01:56 No provider procedures requiring assistance completed. jw7 02:04 Strep Sent. jw7 02:35 Test, Urine Sent. jw7 02:52 Patient did not have IV access during this emergency room visit. bp Administered Medications: No medications were administered Medication: 01:56 VIS not applicable for this client. jw7 Outcome: 02:46 Discharge ordered by . ec2 02:52 Discharged to home ambulatory, with family, bp 02:52 Condition: stable 02:52 Discharge instructions given to patient, Instructed on discharge instructions, follow up and referral plans. Demonstrated understanding of instructions, follow-up care, 02:53 Patient left the ED. bp Signatures: Holli Weber, Reg Reg Tank Galicia, RN RN bp Denise Smith, RN RN jw7 Ventura aHthaway MD MD ec2
--- NOTE | 2023-05-31 02:46 | EDPHYS ---
Physician Documentation [facility] Name: Atiya Castellanos Age: 22 yrs Sex: Female : 2000 Arrival Date: 05/31/2023 Time: 01:00 Bed 8 Private MD: ED Physician Ventura Hathaway HPI: 05/31 01:16 This 22 yrs old Female presents to ER via Unassigned with complaints of Sore ec2 Throat, test. 01:16 Patient arrives today due to concern for sore throat as well as concern for . ec2 Patient reports that she is having some throat pain, states that she is having some odynophagia. Patient reports no fevers or chills, no nausea or vomiting. States that she is unsure of her last period and is concerned she is . Patient denies any urinary complaints. Denies any vaginal bleeding.. 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 - Social history:: Smoking status: Patient denies any tobacco usage or history of. ROS: 01:16 Constitutional: Sore throat. ec2 Exam: 01:16 Constitutional: GEN: NAD Head: atraumatic Eyes: EOMI Ears: External ears are normal. ec2 Mouth: Posterior oropharynx erythema without exudates, anterior cervical lymphadenopathy CV: regular rate LUNGS: no respiratory distress, no wheezes, no rales, no rhonchi ABD: non-distended, soft, nontender, no guarding, not rigid SKIN: no evidence of rashes MSK: no evidence of trauma NEURO: moves all extremities equally Vital Signs: 01:17 BP 113 / 84; Pulse 80; Resp 16 S; Pulse Ox 100% on R/A; Weight 65.77 kg; Height 5 ft. 3 jw7 in. ; Pain 7/10; 02:51 BP 110 / 63; Pulse 78; Resp 16; Temp 98; Pulse Ox 100% ; bp 01:17 Body Mass Index 25.69 (65.77 kg, 160.02 cm) 7 01:17 Pain Scale: Adult jw7 MDM: 01:04 Patient medically screened. ec2 01:16 ED course: Patient arrives today due to concern for sore throat as well as concern for ec2 . Examination remarkable for nontoxic individual is otherwise in no acute distress with reassuring examination. Will obtain a strep swab, urine and assess the patient. Currently considering , strep pharyngitis, viral pharyngitis, abnormal periods.. 02:45 ED course: Negative strep and testing. Will discharge patient home, return ec2 precautions given. Presentation consistent with viral process. . 02:46 Data reviewed: vital signs. ec2 05/31 01:05 Order name: Test, Urine; Complete Time: 02:45 ec2 05/31 01:16 Order name: Strep; Complete Time: 02:25 ec2 05/31 02:13 Order name: Throat Culture EDMS Administered Medications: No medications were administered Disposition Summary: 05/31/23 02:46 Discharge Ordered Notes: Location: Home ec2 Condition: Stable ec2 Diagnosis - Viral Illness ec2 Discharge Instructions: - Discharge Summary Sheet ec2 - Viral Illness, Adult ec2 Forms: - Medication Reconciliation Form ec2 - Thank You Letter ec2 - Antibiotic Education ec2 - Prescription Opioid Use ec2 - Patient Portal Instructions ec2 - Leadership Thank You Letter ec2 Signatures: Dispatcher [employer] Denise Causey RN RN jw7 Ventura Hathaway MD MD ec2
[2023-05-31 03:39] VITALS: O2SAT 100
[2023-05-31 03:40] VITALS: BP 110/63; TEMP 98
== END 2023-05-31 02:53 | disposition home or self-care (01) ==
LOC: ER 01:00
DX: B34.9 Viral infection, unspecified (principal)
CPT/HCPCS: 81025; 87070; 87081; 99283

== ENCOUNTER 2023-06-02 17:18 | Emergency (ER) | payer SELFPAY ==
--- OUTSIDE RECORDS SUMMARY | 2023-06-02 17:23 | XMS REPORT | Continuity of Care Document ---
:2000 Author Organization [facility] t Address [address] [place] [address] [address] [place] [address] Care Team Providers Name Role Phone TREVER ULYSSES Micheal Primary Care Physician Unavailable RUDDY COLBERT Attending Clinician Unavailable RUDDY COLBERT Attending Clinician Unavailable ERIN TILLEY Attending Clinician Unavailable Brittni Martínez RN Attending Clinician Unavailable Doctor Unassigned, [place] Attending Clinician Unavailable RASHID CHA Attending Clinician Unavailable Declan Fermin DO Attending Clinician Rashid Moses Attending Clinician Visit, Qian Nurse Attending Clinician Unavailable Carla Ramos Attending Clinician [phone] CARLA RAJAN Attending Clinician Unavailable Fidelia Billings MD Attending Clinician Faculty, Han Marquez Attending Clinician Unavailable Leandro Neff MD Attending Clinician Ultrasound, Ayden Attending Clinician Unavailable Lab, Qian Attending Clinician Unavailable Fidelia Billings MD Admitting Clinician Payers Payer Name Policy Type Policy Number Effective Date Expiration Date S marva CURTISS [id number] 2019 HEALTH 00:00:00 MEDICAID [facility] [id number] 2023 00:00:00 Problems Condition Condition Condition Status Onset Resolution Last Treating Co mments Source Name Details Category Date Date Treatment Clinician Date Encounter Encounter Disease Active Uni vers for IUD for IUD 4-04 [place] [facility] Disease Active U nivers for for 3- ity of control control 00:00: [place] regarding regarding [facility] intrauteri intrauteri Br anch ne device ne device (IUD) (IUD) Nexplanon Nexplanon Disease Active Uni vers removal removal 3- ity of 00:00: [address] Disease Active U nivers care and care and 5-05 [place] examin[place] Medical immediatel immediatel Br anch y after y after delivery delivery BMI BMI Disease Active Univers 30.0-30.9, 30.0-30.9, 4-11 it y of adult adult 00:00: [address] 37 weeks 37 weeks Disease Active Unive rs gestation gestation 4-11 ity of of of 00:00: [place] 00 [facility] Chlamydia Chlamydia Disease Active Overview: Univers infection infection 2-19 Formattin i ty of during during 00:00: g of this [place] [address] [facility] might be Branch different from the [...] high-risk 00:[place] [address] [facility] with with Branch insufficie insufficie nt [...] INGREDI 01-02 ity of 00:00: [place] [facility] Social History Social Habit Start Date Stop Date Quantity Comments Source ASSERTION 2019-03-20 University of 00:00:00 [facility] Gender identity Universit y of [facility] Sexual orientation Univer sity of [facility] Alcohol intake 2023-04-03 2023-04-03 Ex-drinker [place] of 00:00:00 00:00:00 (finding) [facility] History of Social 2022-11-14 2022-11-14 Univers ity of function 00:00:00 00:00:00 [facility] Exposure to 2022-10-31 2022-11-10 Not sure University of SARS-CoV-2 (event) 00:00:00 12:18:00 [facility] Tobacco use and 2022-11-10 2022-11-10 Smokeless Universit y of exposure 00:00:00 00:00:00 tobacco non-user [facility] Education 2019-11-22 2019-11-22 11 University of 00:00:00 00:00:00 [facility] Tobacco Comment 2013-06-10 2013-06-10 mom smokes Universit y of 00:00:00 00:00:00 outside [facility] Sex Assigned At [birth year] Universit y of 00:00:00 00:00:00 [facility] Smoking Status Start Date Stop Date Source Never smoked tobacco [facility] Medications Ordered Filled Start Stop Current Ordering Indication Dosage Frequency Signature Comments Components Source Medication Medication Date Date Medication? Clinician (SIG) Name Name doxycycline No [id number] 100mg Take 1 Univers monohydrate 11-16-14 capsule by i ty of 100 mg 00:00: 04:59 mouth in [place] capsule 00 :00 the Medical morning Branch and 1 capsule in the evening. Do all this for 7 days. doxycycline No [id number] 100mg Take 1 Univers monohydrate 11-16-14 capsule by i ty of 100 mg 00:00: 04:59 mouth in [place] capsule 00 :00 the Medical morning Branch and 1 capsule in the evening. Do all this for 7 days. doxycycline No [id number] 100mg Take 1 Univers monohydrate 11-16-14 capsule by i ty of 100 mg 00:00: 04:59 mouth in [place] capsule 00 :00 the Medical morning Branch and 1 capsule in the evening. Do all this for 7 days. doxycycline No [id number] 100mg Take 1 Univers monohydrate 11-1614 capsule by i ty of 100 mg 00:00: 04:59 mouth in [place] capsule 00 :00 the Medical morning Branch and 1 capsule in the evening. Do all this for 7 days. levonorgest 2022- No [id number] 1{devic Univers reL 11-15 e} ity of (MIRENA) 21:45: 20:46 [place] IUD 1 00 :00 [place] Branch levonorgest 2022- No [id number] 1{devic 1 Device, Univers reL 11-15 e} Intrauteri ity of (MIRENA) 21:45: 20:46 ne, ONCE, [place] IUD 1 00 :00 1 dose, On [place] 11/15/22 Branch at 1645, Routine levonorgest 2022- No [id number] 1{devic Univers reL 4-05 04-05 e} ity of (MIRENA) 21:45: 20:46 [place] IUD 1 00 :00 [place] levonorgest 2022- No [id number] 1{devic 1 Device, Univers reL 4-05 04-05 e} Intrauteri ity of (MIRENA) 21:45: 20:46 ne, ONCE, [place] IUD 1 00 :00 1 dose, On [place] 11/15/22 Branch at 1645, Routine miSOPROStoL Yes [id number] Take 1 Univers 200 mcg 4-04 tablet, by ity of tablet 00:00: mouth, at [place] 00 bedtime Medical the night Branch before IUD insertion procedure. Repeat dose at 0700 am on the morning of IUD insertion for cervical softening; not for abortive purposes. miSOPROStoL Yes [id number] Take 1 Univers 200 mcg 4-04 tablet, by ity of tablet 00:00: mouth, at [place] 00 bedtime Medical the night Branch before IUD insertion procedure. Repeat dose at 0700 am on the morning of IUD insertion for cervical softening; not for abortive purposes. miSOPROStoL 2022- No [id number] Take 1 Univers 200 mcg 4-04 04-05 tablet, by ity o f tablet 00:00: 00:00 mouth, at [place] 00 :00 bedtime Medical the night Branch before IUD insertion procedure. Repeat dose at 0700 am on the morning of IUD insertion for cervical softening; not for abortive purposes. miSOPROStoL 2022- No [id number] Take 1 Univers 200 mcg 4-04 04-05 tablet, by ity o f tablet 00:00: 00:00 mouth, at [place] 00 :00 bedtime Medical the night Branch before IUD insertion procedure. Repeat dose at 0700 am on the morning of IUD insertion for cervical softening; not for abortive purposes. etonogestre 2019- No [id number] 68mg Univers l 5-27 05-27 ity of (NEXPLANON) 16:00: 14:55 [place] implant 68 00 :00 Medical mg Branch etonogestre 2019- No [id number] 68mg 68 mg, Univers l 5-27 05-27 Subdermal, ity of (NEXPLANON) 16:00: 14:55 ONCE NOW, [place] implant 68 00 :00 1 dose, Medica l mg [facility] 01/07/20 at 1100, Routine
Use approved by: FISHER CRAB etonogestre 2020- No [id number] 68mg Univers l 01-06 ity of (NEXPLANON) 16:00: 14:55 [place] implant 68 00 :00 Medical [facility] etonogestre 2019- No [id number] 68mg 68 mg, Univers l 01-06 Subdermal, ity of (NEXPLANON) 16:00: 14:55 ONCE NOW, [place] implant 68 00 :00 1 dose, Medica l mg [facility] 01/07/20 at 1100, Routine
Use approved by: FISHER CRAB lisdexamfet 2019- No 50mg Take 50 mg Univers amine 11-2212 by mouth ity of (VYVANSE) 12:42: 00:00 every [place] 50 mg 10 :00 morning. Medical capsule [facility] ARIPiprazol 2020- No 2mg Take 2 mg Univers e (ABILIFY) 11-2212 by mouth ity of 2 mg tablet 12:42: 00:00 daily. [place] as 10 :00 Medical [facility] human 2019- Yes .5mL 0.5 mL, Univers papillomav 11-22 Intramuscu ity of vac,9-migel(P 12:26: [facility] [place] F) 12 ONCE-PRIOR Medical (GARDASIL-9 TO [facility] ) syringe DISCHARGE, 0.5 mL 1 dose, Starting 11/23/19 at 0726, Until Discontinu ed, Routine, Give vaccine prior to discharge varicella 2019- 2020- No .5mL 0.5 mL, Univ ers virus 11-2213 Subcutaneo ity of vaccine 12:26: 16:35 , [place] live 12 :00 ONCE-PRIOR Medical (VARIVAX TO [facility] (PF)) DISCHARGE, injection 1 dose, 0.5 mL Starting 11/23/19 at 0726, Until Discontinu ed, Routine, Give vaccine prior to discharge rho(D) 2019- Yes 300ug 300 mcg, Univer s immune -12 Intramuscu ity of globulin 03:56: lar, ONCE, U[place] as (RHOGAM) 35 For 1 Medical syringe [...] at 1912, Routine, Analgesia Recovery 2019-0 Yes [id number] 1{tbl} Take 1 Univers vitamin 4-12 tablet by ity of w/FA tablet 00:00: mouth [place] 00 daily. Medical Branch docusate 2020-0 Yes [id number] 240mg Take 1 U nivers calcium 240 4-12 capsule by it y of mg capsule 00:00: mouth once [place] daily as Medical needed for Branch Constipati on. ferrous 2020-0 Yes [id number] 325mg Take 1 Un dustin sulfate 325 4-12 tablet by ity of mg (65 mg 00:00: mouth 2 [place] iron) 00 (two) Medical tablet times Branch daily. ibuprofen 2020-0 Yes [id number] 600mg Take 1 Univers 600 mg 4-12 tablet by ity of tablet 00:00: mouth [place] 00 every 6 Medical (six) Branch hours as needed (Pain). Take with food or milk. 2020-0 Yes [id number] 1{tbl} Take 1 Univers vitamin 4-12 tablet by ity of w/FA tablet 00:00: mouth [place] 00 daily. Medical Branch docusate 2020-0 Yes [id number] 240mg Take 1 U nivers calcium 240 4-12 capsule by it y of mg capsule 00:00: mouth once [place] 00 daily as Medical needed for Branch Constipati on. ferrous 2020-0 Yes [id number] 325mg Take 1 Un dustin sulfate 325 4-12 tablet by ity of mg (65 mg 00:00: mouth 2 [place] iron) 00 (two) Medical tablet times Branch daily. ibuprofen 2020-0 Yes [id number] 600mg Take 1 Univers 600 mg 4-12 tablet by ity of tablet 00:00: mouth [place] 00 every 6 Medical (six) Branch hours as needed (Pain). Take with food or milk. 2020-0 Yes [id number] 1{tbl} Take 1 Univers vitamin 4-12 tablet by ity of w/FA tablet 00:00: mouth [place] 00 daily. Medical Branch docusate 2020-0 Yes [id number] 240mg Take 1 U nivers calcium 240 4-12 capsule by it y of mg capsule 00:00: mouth once [place] 00 daily as Medical needed for Branch Constipati on. ferrous 2020-0 Yes [id number] 325mg Take 1 Un dustin sulfate 325 4-12 tablet by ity of mg (65 mg 00:00: mouth 2 [place] iron) 00 (two) Medical tablet times Branch daily. ibuprofen 2020-0 Yes [id number] 600mg Take 1 Univers 600 mg 4-12 tablet by ity of tablet 00:00: mouth [place] 00 every 6 Medical (six) Branch hours as needed (Pain). Take with food or milk. 2020-0 Yes [id number] 1{tbl} Take 1 Univers vitamin 4-12 tablet by ity of w/FA tablet 00:00: mouth [place] 00 daily. Medical Branch docusate 2020-0 Yes [id number] 240mg Take 1 U nivers calcium 240 4-12 capsule by it y of mg capsule 00:00: mouth once [place] 00 daily as Medical needed for Branch Constipati on. ferrous 2020-0 Yes [id number] 325mg Take 1 Un dustin sulfate 325 4-12 tablet by ity of mg (65 mg 00:00: mouth 2 [place] iron) 00 (two) Medical tablet times Branch daily. ibuprofen 2020-0 Yes [id number] 600mg Take 1 Univers 600 mg 4-12 tablet by ity of tablet 00:00: mouth [place] 00 every 6 Medical (six) Branch hours as needed (Pain). Take with food or milk. 2020-0 Yes [id number] 1{tbl} Take 1 Univers vitamin 4-12 tablet by ity of w/FA tablet 00:00: mouth [place] 00 daily. Medical Branch docusate 2020-0 Yes [id number] 240mg Take 1 U nivers calcium 240 4-12 capsule by it y of mg capsule 00:00: mouth once [place] 00 daily as Medical needed for Branch Constipati on. ferrous 2020-0 Yes [id number] 325mg Take 1 Un dustin sulfate 325 4-12 tablet by ity of mg (65 mg 00:00: mouth 2 [place] iron) 00 (two) Medical tablet times Branch daily. ibuprofen 2020-0 Yes [id number] 600mg Take 1 Univers 600 mg 4-12 tablet by ity of tablet 00:00: mouth [place] 00 every 6 Medical (six) Branch hours as needed (Pain). Take with food or milk. 2020-0 Yes [id number] 1{tbl} Take 1 Univers vitamin 4-12 tablet by ity of w/FA tablet 00:00: mouth [place] 00 daily. Medical Branch docusate 2020-0 Yes [id number] 240mg Take 1 U nivers calcium 240 4-12 capsule by it y of mg capsule 00:00: mouth once [place] 00 daily as Medical needed for Branch Constipati on. ferrous 2020-0 Yes [id number] 325mg Take 1 Un dustin sulfate 325 4-12 tablet by ity of mg (65 mg 00:00: mouth 2 [place] iron) 00 (two) Medical tablet times Branch daily. ibuprofen 2020-0 Yes [id number] 600mg Take 1 Univers 600 mg 4-12 tablet by ity of tablet 00:00: mouth [place] 00 every 6 Medical (six) Branch hours as needed (Pain). Take with food or milk. 2020-0 Yes [id number] 1{tbl} Take 1 Univers vitamin 4-12 tablet by ity of w/FA tablet 00:00: mouth [place] 00 daily. Medical Branch docusate 2020-0 Yes [id number] 240mg Take 1 U nivers calcium 240 4-12 capsule by it y of mg capsule 00:00: mouth once [place] 00 daily as Medical needed for Branch Constipati on. ferrous 2020-0 Yes [id number] 325mg Take 1 Un dustin sulfate 325 4-12 tablet by ity of mg (65 mg 00:00: mouth 2 [place] iron) 00 (two) Medical tablet times Branch daily. ibuprofen 2020-0 Yes [id number] 600mg Take 1 Univers 600 mg 4-12 tablet by ity of tablet 00:00: mouth [place] 00 every 6 Medical (six) Branch hours as needed (Pain). Take with food or milk. 2020-0 Yes [id number] 1{tbl} Take 1 Univers vitamin 4-12 tablet by ity of w/FA tablet 00:00: mouth [place] 00 daily. Medical Branch docusate 2020-0 Yes [id number] 240mg Take 1 U nivers calcium 240 4-12 capsule by it y of mg capsule 00:00: mouth once [place] 00 daily as Medical needed for Branch Constipati on. ferrous 2020-0 Yes [id number] 325mg Take 1 Un dustin sulfate 325 4-12 tablet by ity of mg (65 mg 00:00: mouth 2 [place] iron) 00 (two) Medical tablet times Branch daily. ibuprofen 2020-0 Yes [id number] 600mg Take 1 Univers 600 mg 4-12 tablet by ity of tablet 00:00: mouth [place] 00 every 6 Medical (six) Branch hours as needed (Pain). Take with food or milk. 2020-0 Yes [id number] 1{tbl} Take 1 Univers vitamin 4-12 tablet by ity of w/FA tablet 00:00: mouth [place] 00 daily. Medical Branch docusate 2020-0 Yes [id number] 240mg Take 1 U nivers calcium 240 4-12 capsule by it y of mg capsule 00:00: mouth once [place] 00 daily as Medical needed for Branch Constipati on. ferrous 2020-0 Yes [id number] 325mg Take 1 Un dustin sulfate 325 4-12 tablet by ity of mg (65 mg 00:00: mouth 2 [place] iron) 00 (two) Medical tablet times Branch daily. ibuprofen 2020-0 Yes [id number] 600mg Take 1 Univers 600 mg 4-12 tablet by ity of tablet 00:00: mouth [place] 00 every 6 Medical (six) Branch hours as needed (Pain). Take with food or milk. 2020-0 Yes [id number] 1{tbl} Take 1 Univers vitamin 4-12 tablet by ity of w/FA tablet 00:00: mouth [place] 00 daily. Medical Branch docusate 2020-0 Yes [id number] 240mg Take 1 U nivers calcium 240 4-12 capsule by it y of mg capsule 00:00: mouth once [place] 00 daily as Medical needed for Branch Constipati on. ferrous 2020-0 Yes [id number] 325mg Take 1 Un dustin sulfate 325 4-12 tablet by ity of mg (65 mg 00:00: mouth 2 [place] iron) 00 (two) Medical tablet times Branch daily. ibuprofen 2020-0 Yes [id number] 600mg Take 1 Univers 600 mg 4-12 tablet by ity of tablet 00:00: mouth [place] 00 every 6 Medical (six) Branch hours as needed (Pain). Take with food or milk. 2020-0 Yes [id number] 1{tbl} Take 1 Univers vitamin 4-12 tablet by ity of w/FA tablet 00:00: mouth [place] 00 daily. Medical Branch docusate 2020-0 Yes [id number] 240mg Take 1 U nivers calcium 240 4-12 capsule by it y of mg capsule 00:00: mouth once [place] 00 daily as Medical needed for Branch Constipati on. ferrous 2020-0 Yes [id number] 325mg Take 1 Un dustin sulfate 325 4-12 tablet by ity of mg (65 mg 00:00: mouth 2 [place] iron) 00 (two) Medical tablet times Branch daily. ibuprofen 2020-0 Yes [id number] 600mg Take 1 Univers 600 mg 4-12 tablet by ity of tablet 00:00: mouth [place] 00 every 6 Medical (six) Branch hours as needed (Pain). Take with food or milk. 2020-0 Yes [id number] 1{tbl} Take 1 Univers vitamin 4-12 tablet by ity of w/FA tablet 00:00: mouth [place] 00 daily. Medical Branch docusate 2020-0 Yes [id number] 240mg Take 1 U nivers calcium 240 4-12 capsule by it y of mg capsule 00:00: mouth once [place] 00 daily as Medical needed for Branch Constipati on. ferrous 2020-0 Yes [id number] 325mg Take 1 Un dustin sulfate 325 4-12 tablet by ity of mg (65 mg 00:00: mouth 2 [place] iron) 00 (two) Medical tablet times Branch daily. ibuprofen 2020-0 Yes [id number] 600mg Take 1 Univers 600 mg 4-12 tablet by ity of tablet 00:00: mouth [place] 00 every 6 Medical (six) Branch hours as needed (Pain). Take with food or milk. 2020-0 Yes [id number] 1{tbl} Take 1 Univers vitamin 4-12 tablet by ity of w/FA tablet 00:00: mouth [place] 00 daily. Medical Branch docusate 2020-0 Yes [id number] 240mg Take 1 U nivers calcium 240 4-12 capsule by it y of mg capsule 00:00: mouth once [place] 00 daily as Medical needed for Branch Constipati on. ferrous 2020-0 Yes [id number] 325mg Take 1 Un dustin sulfate 325 4-12 tablet by ity of mg (65 mg 00:00: mouth 2 [place] iron) 00 (two) Medical tablet times Branch daily. ibuprofen 2020-0 Yes [id number] 600mg Take 1 Univers 600 mg 4-12 tablet by ity of tablet 00:00: mouth [place] 00 every 6 Medical (six) Branch hours as needed (Pain). Take with food or milk. 2020-0 Yes [id number] 1{tbl} Take 1 Univers vitamin 4-12 tablet by ity of w/FA tablet 00:00: mouth [place] 00 daily. Medical Branch docusate 2020-0 Yes [id number] 240mg Take 1 U nivers calcium 240 4-12 capsule by it y of mg capsule 00:00: mouth once [place] 00 daily as Medical needed for Branch Constipati on. ferrous 2020-0 Yes [id number] 325mg Take 1 Un dustin sulfate 325 4-12 tablet by ity of mg (65 mg 00:00: mouth 2 [place] iron) 00 (two) Medical tablet times Branch daily. ibuprofen 2020-0 Yes [id number] 600mg Take 1 Univers 600 mg 4-12 tablet by ity of tablet 00:00: mouth [place] 00 every 6 Medical (six) Branch hours as needed (Pain). Take with food or milk. 2020-0 Yes [id number] 1{tbl} Take 1 Univers vitamin 4-12 tablet by ity of w/FA tablet 00:00: mouth [place] 00 daily. Medical Branch docusate 2020-0 Yes [id number] 240mg Take 1 U nivers calcium 240 4-12 capsule by it y of mg capsule 00:00: mouth once [place] 00 daily as Medical needed for Branch Constipati on. ferrous 2020-0 Yes [id number] 325mg Take 1 Un dustin sulfate 325 4-12 tablet by ity of mg (65 mg 00:00: mouth 2 [place] iron) 00 (two) Medical tablet times Branch daily. ibuprofen 2020-0 Yes [id number] 600mg Take 1 Univers 600 mg 4-12 tablet by ity of tablet 00:00: mouth [place] 00 every 6 Medical (six) Branch hours as needed (Pain). Take with food or milk. 2020-0 Yes [id number] 1{tbl} Take 1 Univers vitamin 4-12 tablet by ity of w/FA tablet 00:00: mouth [place] 00 daily. Medical Branch docusate 2020-0 Yes [id number] 240mg Take 1 U nivers calcium 240 4-12 capsule by it y of mg capsule 00:00: mouth once [place] 00 daily as Medical needed for Branch Constipati on. ferrous 2020-0 Yes [id number] 325mg Take 1 Un dustin sulfate 325 4-12 tablet by ity of mg (65 mg 00:00: mouth 2 [place] iron) 00 (two) Medical tablet times Branch daily. ibuprofen 2020-0 Yes [id number] 600mg Take 1 Univers 600 mg 4-12 tablet by ity of tablet 00:00: mouth [place] 00 every 6 Medical (six) Branch hours as needed (Pain). Take with food or milk. 2020-0 Yes [id number] 1{tbl} Take 1 Univers vitamin 4-12 tablet by ity of w/FA tablet 00:00: mouth [place] 00 daily. Medical Branch docusate 2020-0 Yes [id number] 240mg Take 1 U nivers calcium 240 4-12 capsule by it y of mg capsule 00:00: mouth once [place] 00 daily as Medical needed for Branch Constipati on. ferrous 2020-0 Yes [id number] 325mg Take 1 Un dustin sulfate 325 4-12 tablet by ity of mg (65 mg 00:00: mouth 2 [place] iron) 00 (two) Medical tablet times Branch daily. ibuprofen 2020-0 Yes [id number] 600mg Take 1 Univers 600 mg 4-12 tablet by ity of tablet 00:00: mouth [place] 00 every 6 Medical (six) Branch hours as needed (Pain). Take with food or milk. 2020-0 Yes [id number] 1{tbl} Take 1 Univers vitamin 4-12 tablet by ity of w/FA tablet 00:00: mouth [place] 00 daily. Medical Branch docusate 2020-0 Yes [id number] 240mg Take 1 U nivers calcium 240 4-12 capsule by it y of mg capsule 00:00: mouth once [place] 00 daily as Medical needed for Branch Constipati on. ferrous 2020-0 Yes [id number] 325mg Take 1 Un dustin sulfate 325 4-12 tablet by ity of mg (65 mg 00:00: mouth 2 [place] iron) 00 (two) Medical tablet times Branch daily. ibuprofen 2020-0 Yes [id number] 600mg Take 1 Univers 600 mg 4-12 tablet by ity of tablet 00:00: mouth [place] 00 every 6 Medical (six) Branch hours as needed (Pain). Take with food or milk. 2020-0 Yes [id number] 1{tbl} Take 1 Univers vitamin 4-12 tablet by ity of w/FA tablet 00:00: mouth [place] 00 daily. Medical Branch docusate 2020-0 Yes [id number] 240mg Take 1 U nivers calcium 240 4-12 capsule by it y of mg capsule 00:00: mouth once [place] 00 daily as Medical needed for Branch Constipati on. ferrous 2020-0 Yes [id number] 325mg Take 1 Un dustin sulfate 325 4-12 tablet by ity of mg (65 mg 00:00: mouth 2 [place] iron) 00 (two) Medical tablet times Branch daily. ibuprofen 2020-0 Yes [id number] 600mg Take 1 Univers 600 mg 4-12 tablet by ity of tablet 00:00: mouth [place] 00 every 6 Medical (six) Branch hours as needed (Pain). Take with food or milk. 2020-0 Yes [id number] 1{tbl} Take 1 Univers vitamin 4-12 tablet by ity of w/FA tablet 00:00: mouth [place] 00 daily. Medical Branch docusate 2020-0 Yes [id number] 240mg Take 1 U nivers calcium 240 4-12 capsule by it y of mg capsule 00:00: mouth once [place] 00 daily as Medical needed for Branch Constipati on. ferrous 2020-0 Yes [id number] 325mg Take 1 Un dustin sulfate 325 4-12 tablet by ity of mg (65 mg 00:00: mouth 2 [place] iron) 00 (two) Medical tablet times Branch daily. ibuprofen 2020-0 Yes [id number] 600mg Take 1 Univers 600 mg 4-12 tablet by ity of tablet 00:00: mouth [place] 00 every 6 Medical (six) Branch hours as needed (Pain). Take with food or milk. 2020-0 Yes [id number] 1{tbl} Take 1 Univers vitamin 4-12 tablet by ity of w/FA tablet 00:00: mouth [place] 00 daily. Medical Branch docusate 2020-0 Yes [id number] 240mg Take 1 U nivers calcium 240 4-12 capsule by it y of mg capsule 00:00: mouth once [place] 00 daily as Medical needed for Branch Constipati on. ferrous 2020-0 Yes [id number] 325mg Take 1 Un dustin sulfate 325 4-12 tablet by ity of mg (65 mg 00:00: mouth 2 [place] iron) 00 (two) Medical tablet times Branch daily. ibuprofen 2020-0 Yes [id number] 600mg Take 1 Univers 600 mg 4-12 tablet by ity of tablet 00:00: mouth [place] 00 every 6 Medical (six) Branch hours as needed (Pain). Take with food or milk. HYDROcodone 2019-0 2020- No [id number] 1{tbl} Take 1 Univers -acetaminop 4-12 04-20 tablet by it y of hen 5-325 00:00: 04:59 mouth [place] mg tablet 00 :00 every 6 Medical (six) Branch hours as needed (for pain) for up to 7 days. Do not exceed 3 grams of acetaminop hen in 24 hours. HYDROcodone 2019- 2020- No [id number] 1{tbl} Take 1 Univers -acetaminop 11-22 tablet [...] Surgical Prophylaxi s
Surgi ashley Prophylaxi s: [facility] CRAB
Duration of therapy: within 24 hours of [...] [place] (RIGHT STEP 00 daily. Medica l [facility] Branch VITAMINS) 27 mg iron- 0.8 [...] (RIGHT STEP 00 :00 daily. Medica l [facility] VITAMINS) 27 mg iron- 0.8 [...] Other (see Comments) azithromyci 2020-0 2020- No [id number] 1000mg Take 2 Univers n 500 mg 2-19 02-20 tablets by ity of tablet 00:00: 05:59 mouth once [place] 00 :00 now for 1 Medical dose. Branch azithromyci 2020-0 2020- No [id number] 1000mg Take 2 Univers n 500 mg 2-19 02-20 tablets by ity of tablet 00:00: 05:59 mouth once [place] 00 :00 now for 1 Medical dose. Branch ARIPiprazol 2020-0 Yes 2mg Take 2 mg U nivers e (ABILIFY) 2-18 by mouth ity of 2 mg tablet 19:58: daily. [facility] Medical Branch lisdexamfet 2020-0 Yes 50mg Take 50 mg Univers amine 2-18 by mouth ity of (VYVANSE) 19:58: every [place] 50 mg 26 morning. Medical capsule Branch ARIPiprazol 2019-0 Yes 2mg Take 2 mg U nivers e (ABILIFY) 2-18 by mouth ity of 2 mg tablet 19:58: daily. [facility] lisdexamfet 2019-0 Yes 50mg Take 50 mg Univers amine 2-18 by mouth ity of (VYVANSE) 19:58: every [place] 50 mg 26 morning. Medical capsule Branch ARIPiprazol 2020-0 Yes 2mg Take 2 mg U nivers e (ABILIFY) 2-18 by mouth ity of 2 mg tablet 19:58: daily. [place] [address] Medical Branch lisdexamfet 2020-0 Yes 50mg Take 50 mg Univers amine 2-18 by mouth ity of (VYVANSE) 19:58: every [place] 50 mg 26 morning. Medical capsule Branch ARIPiprazol 2020-0 Yes 2mg Take 2 mg U nivers e (ABILIFY) 2-18 by mouth ity of 2 mg tablet 19:58: daily. [facility] lisdexamfet 2020-0 Yes 50mg Take 50 mg Univers amine 2-18 by mouth ity of (VYVANSE) 19:58: every [place] 50 mg 26 morning. Medical capsule Branch ARIPiprazol 2020-0 Yes 2mg Take 2 mg U nivers e (ABILIFY) 2-18 by mouth ity of 2 mg tablet 19:58: daily. [place] [address] Medical Branch lisdexamfet 2020-0 Yes 50mg Take 50 mg Univers amine 2-18 by mouth ity of (VYVANSE) 19:58: every [place] 50 mg 26 morning. Medical capsule Branch ARIPiprazol 2020-0 Yes 2mg Take 2 mg U nivers e (ABILIFY) 2-18 by mouth ity of 2 mg tablet 19:58: daily. [place] [address] Medical Branch lisdexamfet 2020-0 Yes 50mg Take 50 mg Univers amine 2-18 by mouth ity of (VYVANSE) 19:58: every [place] 50 mg 26 morning. Medical capsule Branch ARIPiprazol 2020-0 Yes 2mg Take 2 mg U nivers e (ABILIFY) 2-18 by mouth ity of 2 mg tablet 19:58: daily. [address] Branch lisdexamfet 2020-0 Yes 50mg Take 50 mg Univers amine 2-18 by mouth ity of (VYVANSE) 19:58: every [place] 50 mg 26 morning. Medical capsule Branch ARIPiprazol 2020-0 Yes 2mg Take 2 mg U nivers e (ABILIFY) 2-18 by mouth ity of 2 mg tablet 19:58: daily. [address] Branch lisdexamfet 2020-0 Yes 50mg Take 50 mg Univers amine 2-18 by mouth ity of (VYVANSE) 19:58: every [place] 50 mg 26 morning. Medical capsule Branch ARIPiprazol 2020-0 Yes 2mg Take 2 mg U nivers e (ABILIFY) 2-18 by mouth ity of 2 mg tablet 19:58: daily. [address] Branch lisdexamfet 2020-0 Yes 50mg Take 50 mg Univers amine 2-18 by mouth ity of (VYVANSE) 19:58: every [place] 50 mg 26 morning. Medical capsule Branch ARIPiprazol 2020-0 Yes 2mg Take 2 mg U nivers e (ABILIFY) 2-18 by mouth ity of 2 mg tablet 19:58: daily. [address] Branch lisdexamfet 2020-0 Yes 50mg Take 50 mg Univers amine 2-18 by mouth ity of (VYVANSE) 19:58: every [place] 50 mg 26 morning. Medical capsule Branch ARIPiprazol 2020-0 Yes 2mg Take 2 mg U nivers e (ABILIFY) 2-18 by mouth ity of 2 mg tablet 19:58: daily. [place] [address] Medical Branch lisdexamfet 2020-0 Yes 50mg Take 50 mg Univers amine 2-18 by mouth ity of (VYVANSE) 19:58: every [place] 50 mg 26 morning. Medical capsule Branch ARIPiprazol 2020-0 Yes 2mg Take 2 mg U nivers e (ABILIFY) 2-18 by mouth ity of 2 mg tablet 19:58: daily. [address] Branch lisdexamfet 2020-0 Yes 50mg Take 50 mg Univers amine 2-18 by mouth ity of (VYVANSE) 19:58: every [place] 50 mg 26 morning. Medical capsule Branch ARIPiprazol 2020-0 Yes 2mg Take 2 mg U nivers e (ABILIFY) 2-18 by mouth ity of 2 mg tablet 19:58: daily. [address] Branch lisdexamfet 2020-0 Yes 50mg Take 50 mg Univers amine 2-18 by mouth ity of (VYVANSE) 19:58: every [place] 50 mg 26 morning. Medical capsule Branch ARIPiprazol 2020-0 Yes 2mg Take 2 mg U nivers e (ABILIFY) 2-18 by mouth ity of 2 mg tablet 19:58: daily. [address] Branch lisdexamfet 2020-0 Yes 50mg Take 50 mg Univers amine 2-18 by mouth ity of (VYVANSE) 19:58: every [place] 50 mg 26 morning. Medical capsule Branch ARIPiprazol 2020-0 Yes 2mg Take 2 mg U nivers e (ABILIFY) 2-18 by mouth ity of 2 mg tablet 19:58: daily. [address] Branch lisdexamfet 2020-0 Yes 50mg Take 50 mg Univers amine 2-18 by mouth ity of (VYVANSE) 19:58: every [place] 50 mg 26 morning. Medical capsule Branch ARIPiprazol 2020-0 Yes 2mg Take 2 mg U nivers e (ABILIFY) 2-18 by mouth ity of 2 mg tablet 19:58: daily. [place] [address] Medical Branch lisdexamfet 2019-0 Yes 50mg Take 50 mg Univers amine 2-18 by mouth ity of (VYVANSE) 19:58: every [place] 50 mg 26 morning. Medical capsule Branch ARIPiprazol 2019-0 Yes 2mg Take 2 mg U nivers e (ABILIFY) 2-18 by mouth ity of 2 mg tablet 19:58: daily. [place] [address] Medical Branch lisdexamfet 2019-0 Yes 50mg Take 50 mg Univers amine 2-18 by mouth ity of (VYVANSE) 19:58: every [place] 50 mg 26 morning. Medical capsule Branch ARIPiprazol 2019-0 Yes 2mg Take 2 mg U nivers e (ABILIFY) 2-18 by mouth ity of 2 mg tablet 19:58: daily. [address] Branch lisdexamfet 2019-0 Yes 50mg Take 50 mg Univers amine 2-18 by mouth ity of (VYVANSE) 19:58: every [place] 50 mg 26 morning. Medical capsule Branch ARIPiprazol 2019-0 Yes 2mg Take 2 mg U nivers e (ABILIFY) 2-18 by mouth ity of 2 mg tablet 19:58: daily. [place] [address] Medical Branch lisdexamfet 2019-0 Yes 50mg Take 50 mg Univers amine 2-18 by mouth ity of (VYVANSE) 19:58: every [place] 50 mg 26 morning. Medical capsule Branch ARIPiprazol 2019-0 Yes 2mg Take 2 mg U nivers e (ABILIFY) 2-18 by mouth ity of 2 mg tablet 19:58: daily. [place] [address] Medical Branch lisdexamfet 2019-0 Yes 50mg Take [...] s 37 Medical Branch Somatropin 2014-0 Yes [id number] 3mg inject 3 Univers (NORDITROPI 5-05 mg under ity of N FLEXPRO) 00:00: the skin [place] as 15 mg/1.5 00 daily. Medical mL (10 Branch mg/mL) PnIj Somatropin 2014-0 Yes [id number] 3mg inject 3 Univers (NORDITROPI 5-05 mg under ity of N FLEXPRO) 00:00: the skin [place] 15 mg/1.5 00 daily. Medical mL (10 Branch mg/mL) PnIj Somatropin 2014-0 Yes [id number] 3mg inject 3 Univers (NORDITROPI 5-05 mg under ity of N FLEXPRO) 00:00: the skin [place] 15 mg/1.5 00 daily. Medical mL (10 Branch mg/mL) PnIj Somatropin 2014-0 Yes [id number] 3mg inject 3 Univers (NORDITROPI 5-05 mg under ity of N FLEXPRO) 00:00: the skin [place] 15 mg/1.5 00 daily. Medical mL (10 Branch mg/mL) PnIj Somatropin 2014-0 Yes [id number] 3mg inject 3 Univers (NORDITROPI 5-05 mg under ity of N FLEXPRO) 00:00: the skin [place] 15 mg/1.5 00 daily. Medical mL (10 Branch mg/mL) PnIj Somatropin 2014-0 Yes [id number] 3mg inject 3 Univers (NORDITROPI 5-05 mg under ity of N FLEXPRO) 00:00: the skin [place] 15 mg/1.5 00 daily. Medical mL (10 Branch mg/mL) PnIj Somatropin 2014-0 Yes [id number] 3mg inject 3 Univers (NORDITROPI 5-05 mg under ity of N FLEXPRO) 00:00: the skin [place] 15 mg/1.5 00 daily. Medical mL (10 Branch mg/mL) PnIj Somatropin 2014-0 Yes [id number] 3mg inject 3 Univers (NORDITROPI 5-05 mg under ity of N FLEXPRO) 00:00: the skin [place] as 15 mg/1.5 00 daily. Medical mL (10 Branch mg/mL) PnIj Somatropin 2014-0 Yes [id number] 3mg inject 3 Univers (NORDITROPI 5-05 mg under ity of N FLEXPRO) 00:00: the skin [place] 15 mg/1.5 00 daily. Medical mL (10 Branch mg/mL) PnIj Somatropin 0 Yes [id number] 3mg inject 3 Univers (NORDITROPI 5-05 mg under ity of N FLEXPRO) 00:00: the skin [place] 15 mg/1.5 00 daily. Medical mL (10 Branch mg/mL) PnIj Somatropin 2014- Yes [id number] 3mg inject 3 Univers (NORDITROPI 5-05 mg under ity of N FLEXPRO) 00:00: the skin [place] 15 mg/1.5 00 daily. Medical mL (10 Branch mg/mL) PnIj Somatropin Yes [id number] 3mg inject 3 Univers (NORDITROPI 5-05 mg under ity of N FLEXPRO) 00:00: the skin [place] 15 mg/1.5 00 daily. Medical mL (10 Branch mg/mL) PnIj Somatropin Yes [id number] 3mg inject 3 Univers (NORDITROPI 5-05 mg under ity of N FLEXPRO) 00:00: the skin [place] 15 mg/1.5 00 daily. Medical mL (10 Branch mg/mL) PnIj Somatropin Yes [id number] 3mg inject 3 Univers (NORDITROPI 5-05 mg under ity of N FLEXPRO) 00:00: the skin [place] as 15 mg/1.5 00 daily. Medical mL (10 Branch mg/mL) PnIj Somatropin Yes [id number] 3mg inject 3 Univers (NORDITROPI 5-05 mg under ity of N FLEXPRO) 00:00: the skin [place] as 15 mg/1.5 00 daily. Medical mL (10 Branch mg/mL) PnIj Somatropin 2014-0 Yes [id number] 3mg inject 3 Univers (NORDITROPI 5-05 mg under ity of N FLEXPRO) 00:00: the skin [place] as 15 mg/1.5 00 daily. Medical mL (10 Branch mg/mL) PnIj Somatropin 2014- Yes [id number] 3mg inject 3 Univers (NORDITROPI 5-05 mg under ity of N FLEXPRO) 00:00: the skin [place] as 15 mg/1.5 00 daily. Medical mL (10 Branch mg/mL) PnIj Somatropin Yes [id number] 3mg inject 3 Univers (NORDITROPI 5-05 mg under ity of N FLEXPRO) 00:00: the skin [place] as 15 mg/1.5 00 daily. Medical mL (10 Branch mg/mL) PnIj Somatropin 2014- Yes [id number] 3mg inject 3 Univers (NORDITROPI 5-05 mg under ity of N FLEXPRO) 00:00: the skin [place] as 15 mg/1.5 00 daily. Medical mL (10 Branch mg/mL) PnIj Somatropin 2014- Yes [id number] 3mg inject 3 Univers (NORDITROPI 5-05 mg under ity of N FLEXPRO) 00:00: the skin [place] as 15 mg/1.5 00 daily. Medical mL (10 Branch mg/mL) PnIj Somatropin 2014- Yes [id number] 3mg inject 3 Univers (NORDITROPI 5-05 mg under ity of N FLEXPRO) 00:00: the skin [place] 15 mg/1.5 00 daily. Medical mL (10 Branch mg/mL) PnIj Somatropin 2020- No [id number] 3mg inject 3 Univers (NORDITROPI 5-05 04-12 [...] 21:32:00 108 mm[Hg] Univer sity of pressure [facility] Diastolic blood 2023-03-29 21:32:00 70 mm[Hg] Unive rsity of pressure [facility] Heart rate 2023-03-29 21:32:00 73 /min [facility] Respiratory rate 2023-03-29 21:32:00 18 /min [facility] Body height 2023-03-29 21:32:00 152.4 cm [facility] Body weight 2023-03-29 21:32:00 69.4 kg [facility] BMI 2023-03-29 21:32:00 29.88 kg/m2 [facility] Systolic blood 2022-11-15 19:38:00 109 mm[Hg] Univer sity of pressure [facility] Diastolic blood 2022-11-15 19:38:00 70 mm[Hg] Unive rsity of pressure [facility] Heart rate 2022-11-15 19:38:00 87 /min [facility] Respiratory rate 2022-11-15 19:38:00 16 /min [facility] Body height 2022-11-15 19:38:00 152.4 cm [facility] [place] [facility] Body weight 2022-11-15 19:38:00 69.854 kg [facility] [place] [facility] BMI 2022-11-15 19:38:00 30.08 kg/m2 [facility] [place] [facility] Oxygen saturation in 2022-11-15 19:38:00 98 /min [facility] of Arterial blood by [place] [facility] Pulse oximetry Branch Systolic blood 2022-11-14 19:57:00 104 mm[Hg] Univer sity of pressure [place] [facility] Diastolic blood 2022-11-14 19:57:00 53 mm[Hg] Unive rsity of pressure [place] [facility] Heart rate 2022-11-14 19:57:00 84 /min [facility] [place] [facility] Respiratory rate 2022-11-14 19:57:00 18 /min Univ ersity [facility] [place] [facility] Body height 2022-11-14 19:57:00 152.4 cm [facility] [place] [facility] Body weight 2022-11-14 19:57:00 69.4 kg [facility] [place] [facility] BMI 2022-11-14 19:57:00 29.88 kg/m2 [facility] [place] [facility] Systolic blood 2022-11-10 17:40:00 107 mm[Hg] Univer sity of pressure [place] [facility] Diastolic blood 2022-11-10 17:40:00 68 mm[Hg] Unive rsity of pressure [place] [facility] Heart rate 2022-11-10 17:40:00 77 /min [facility] [place] [facility] Respiratory rate 2022-11-10 17:40:00 16 /min Univ ersity [facility] [place] [facility] Body height 2022-11-10 17:40:00 152.4 cm [facility] [place] [facility] Body weight 2022-11-10 17:40:00 68.72 kg [facility] [place] [facility] BMI 2022-11-10 17:40:00 29.59 kg/m2 [facility] [place] [facility] Oxygen saturation in 2022-11-10 17:40:00 98 /min [facility] of Arterial blood by [place] [facility] Pulse oximetry Branch Systolic blood 2020-01-07 14:30:00 108 mm[Hg] Univer sity of pressure [place] [facility] Diastolic blood 2020-01-07 14:30:00 67 mm[Hg] Unive rsity of pressure [place] [facility] Heart rate 2020-01-07 14:30:00 66 /min [facility] [place] [facility] Body temperature 2020-01-07 14:30:00 36.56 [place] Univ ersity [facility] [place] [facility] Respiratory rate 2020-01-07 14:30:00 16 /min Univ ersity [facility] [place] [facility] Body height 2020-01-07 14:30:00 152.4 cm [facility] [place] [facility] Body weight 2020-01-07 14:30:00 68.55 kg [facility] [place] [facility] BMI 2020-01-07 14:30:00 29.51 kg/m2 [facility] [place] [facility] Systolic blood 2019-11-28 20:21:00 112 mm[Hg] Univer sity of pressure [place] [facility] Diastolic blood 2019-11-28 20:21:00 77 mm[Hg] Unive rsity of pressure [place] [facility] Heart rate 2019-11-28 20:21:00 83 /min [facility] [place] [facility] Body temperature 2019-11-28 20:21:00 36.56 [place] Univ ersity [facility] [place] [facility] Respiratory rate 2019-11-28 20:21:00 16 /min Univ ersity [facility] [place] [facility] Body height 2019-11-28 20:21:00 152.4 cm [facility] [place] [facility] Body weight 2019-11-28 20:21:00 70.081 kg [facility] [place] [facility] BMI 2019-11-28 20:21:00 30.17 kg/m2 [facility] [place] [facility] Systolic blood 2019-11-28 20:21:00 112 mm[Hg] Univer sity of pressure [place] [facility] Diastolic blood 2019-11-28 20:21:00 77 mm[Hg] Unive rsity of pressure [place] [facility] Heart rate 2019-11-28 20:21:00 83 /min [facility] [place] [facility] Body temperature 2019-11-28 20:21:00 36.56 [place] [facility] ers[facility] [place] [facility] Respiratory rate 2019-11-28 20:21:00 16 /min Univ ersity [facility] [place] [facility] Body height 2019-11-28 20:21:00 152.4 cm [facility] [place] [facility] Body weight 2019-11-28 20:21:00 70.081 kg [facility] [place] [facility] BMI 2019-11-28 20:21:00 30.17 kg/m2 [facility] [place] [facility] Systolic blood 2019-11-24 12:57:00 117 mm[Hg] Univer sity of pressure [place] [facility] Diastolic blood 2019-11-24 12:57:00 59 mm[Hg] Unive rsity of pressure [place] [facility] Heart rate 2019-11-24 12:57:00 99 /min [facility] [place] [facility] Body temperature 2019-11-24 12:57:00 36.44 [place] [facility] [place] [facility] Respiratory rate 2019-11-24 12:57:00 18 /min Univ ersity [facility] [place] [facility] Oxygen saturation in 2019-11-24 12:57:00 100 /min University of Arterial blood by [facility] ashley Pulse oximetry Branch Body height 2019-11-22 17:18:00 152.4 cm [facility] [place] [facility] Body weight 2019-11-22 17:18:00 72.122 kg [facility] [place] [facility] BMI 2019-11-22 17:18:00 31.05 kg/m2 [facility] [place] [facility] Systolic blood 2019-11-24 12:57:00 117 mm[Hg] Univer sity of pressure [place] [facility] Diastolic blood 2019-11-24 12:57:00 59 mm[Hg] Unive rsity of pressure [place] [facility] Heart rate 2019-11-24 12:57:00 99 /min [facility] [place] [facility] Body temperature 2019-11-24 12:57:00 36.44 [place] [facility] ers[facility] [place] [facility] Respiratory rate 2019-11-24 12:57:00 18 /min Univ ersity [facility] [place] [facility] Oxygen saturation in 2019-11-24 12:57:00 100 /min [facility] Arterial blood by [place] [facility] Pulse oximetry Branch Body height 2019-11-22 17:18:00 152.4 cm [facility] [place] [facility] Body weight 2019-11-22 17:18:00 72.122 kg [facility] [place] [facility] BMI 2019-11-22 17:18:00 31.05 kg/m2 [facility] [place] [facility] Systolic blood 2019-11-18 13:42:00 124 mm[Hg] Univer sity of pressure [place] [facility] Diastolic blood 2019-11-18 13:42:00 70 mm[Hg] Unive rsity of pressure [place] [facility] Heart rate 2019-11-18 13:42:00 79 /min [facility] [place] [facility] Body temperature 2019-11-18 13:42:00 36.17 [place] [facility] [place] [facility] Respiratory rate 2019-11-18 13:42:00 16 /min Univ ersity [facility] [place] [facility] Body height 2019-11-18 13:42:00 152.4 cm [facility] [place] [facility] Body weight 2019-11-18 13:42:00 73.057 kg [facility] [place] [facility] BMI 2019-11-18 13:42:00 31.46 kg/m2 [facility] [place] [facility] Systolic blood 2019-11-18 13:42:00 124 mm[Hg] Univer sity of pressure [place] [facility] Diastolic blood 2019-11-18 13:42:00 70 mm[Hg] Unive rsity of pressure [place] [facility] Heart rate 2019-11-18 13:42:00 79 /min [facility] [place] [facility] Body temperature 2019-11-18 13:42:00 36.17 [place] [facility] [place] [facility] Respiratory rate 2019-11-18 13:42:00 16 /min Univ ersity [facility] [place] [facility] Body height 2019-11-18 13:42:00 152.4 cm [facility] [place] [facility] Body weight 2019-11-18 13:42:00 73.057 kg [facility] [place] [facility] BMI 2019-11-18 13:42:00 31.46 kg/m2 [facility] [place] [facility] Systolic blood 2019-11-11 13:57:00 118 mm[Hg] Univer sity of pressure [place] [facility] Diastolic blood 2019-11-11 13:57:00 69 mm[Hg] Unive rsity of pressure [place] [facility] Heart rate 2019-11-11 13:57:00 82 /min [facility] [place] [facility] Body temperature 2019-11-11 13:57:00 36.33 [place] [facility] [place] [facility] Respiratory rate 2019-11-11 13:57:00 16 /min Univ [facility] [place] [facility] Body height 2019-11-11 13:57:00 152.4 cm [facility] [place] [facility] Body weight 2019-11-11 13:57:00 71.697 kg [facility] [place] [facility] BMI 2019-11-11 13:57:00 30.87 kg/m2 [facility] [place] [facility] Systolic blood 2019-11-11 13:57:00 118 mm[Hg] Univer sity of pressure [place] [facility] Diastolic blood 2019-11-11 13:57:00 69 mm[Hg] Unive rsity of pressure [place] [facility] Heart rate 2019-11-11 13:57:00 82 /min [facility] [place] [facility] Body temperature 2019-11-11 13:57:00 36.33 [place] [facility] [place] [facility] Respiratory rate 2019-11-11 13:57:00 16 /min Univ ers[facility] [place] [facility] Body height 2019-11-11 13:57:00 152.4 cm [facility] [place] [facility] Body weight 2019-11-11 13:57:00 71.697 kg [facility] [place] [facility] BMI 2019-11-11 13:57:00 30.87 kg/m2 [facility] [place] [facility] Systolic blood 2019-10-27 15:32:00 114 mm[Hg] Univer sity of pressure [place] [facility] Diastolic blood 2019-10-27 15:32:00 66 mm[Hg] Unive rsity of pressure [place] [facility] Heart rate 2019-10-27 15:32:00 83 /min [facility] [place] [facility] Body temperature 2019-10-27 15:32:00 36.89 [place] [facility] [place] [facility] Respiratory rate 2019-10-27 15:32:00 16 /min Univ [facility] [place] [facility] Body height 2019-10-27 15:32:00 152.4 cm [facility] [place] [facility] Body weight 2019-10-27 15:32:00 70.308 kg [facility] [place] [facility] BMI 2019-10-27 15:32:00 30.27 kg/m2 [facility] [place] [facility] Systolic blood 2019-10-13 15:00:00 116 mm[Hg] Univer sity of pressure [place] [facility] Diastolic blood 2019-10-13 15:00:00 67 mm[Hg] Unive rsity of pressure [place] [facility] Heart rate 2019-10-13 15:00:00 84 /min [facility] [place] [facility] Body temperature 2019-10-13 15:00:00 36.39 [place] [facility] [place] [facility] Respiratory rate 2019-10-13 15:00:00 16 /min [facility] [place] [facility] Body height 2019-10-13 15:00:00 152.4 cm [facility] [place] [facility] Body weight 2019-10-13 15:00:00 69.31 kg [facility] [place] [facility] BMI 2019-10-13 15:00:00 29.84 kg/m2 [facility] [place] [facility] Systolic blood 2019-10-02 15:13:00 128 mm[Hg] Univer sity of pressure [place] [facility] Diastolic blood 2019-10-02 15:13:00 71 mm[Hg] Unive rsity of pressure [place] [facility] Heart rate 2019-10-02 15:13:00 81 /min [facility] [place] [facility] Body temperature 2019-10-02 15:13:00 36.22 [place] [facility] [place] [facility] Respiratory rate 2019-10-02 15:13:00 16 /min [facility] [place] [facility] Body height 2019-10-02 15:13:00 152.4 cm [facility] [place] [facility] Body weight 2019-10-02 15:13:00 67.586 kg [facility] [place] [facility] BMI 2019-10-02 15:13:00 29.10 kg/m2 [facility] [place] [facility] Systolic blood 2019-09-30 19:43:00 113 mm[Hg] Univer sity of pressure [place] [facility] Diastolic blood 2019-09-30 19:43:00 67 mm[Hg] Unive rsity of pressure [place] [facility] Heart rate 2019-09-30 19:43:00 91 /min [facility] [place] [facility] Body temperature 2019-09-30 19:43:00 36.22 [place] [facility] [place] [facility] Respiratory rate 2019-09-30 19:43:00 16 /min [facility] [place] [facility] Body height 2019-09-30 19:43:00 152.4 cm [facility] [place] [facility] Body weight 2019-09-30 19:43:00 67.189 kg [facility] [place] [facility] BMI 2019-09-30 19:43:00 28.93 kg/m2 [facility] [place] [facility] Procedures Procedure Date / Time Performing Clinician Source Performed INSURANCE CORRESPONDENCE 2022-11-21 05:01:00 Doctor Tiff, [facility] POCT TEST 2022-11-15 00:00:00 Ruddy [facility] ASSIGNMENT OF BENEFITS 2022-11-10 17:19:34 [facility] 2020-01-07 14:33:00 Rashid Cha [facility] CONSENT FOR CONTRACEPTION 2020-01-07 05:01:00 Doctor Tiff, [facility] CBC WITH DIFFERENTIAL 2019-11-23 09:13:00 Reynold [facility] ARTERIAL CORD GAS 2019-11-22 23:50:00 [facility] VENOUS CORD GAS 2019-11-22 23:49:00 [facility] SECTION 2019-11-22 23:00:00 Fidelia Billings [facility] HEPATITIS B SURFACE 2019-11-22 20:42:00 [facility] ANTIGEN [facility] GALV ONLY - SYPHILIS 2019-11-22 20:42:00 [facility] IGG/IGM [facility] HB ABO GROUPING 2019-11-22 20:02:00 [facility] RHO (D) IMMUNE GLOBULIN 2019-11-22 20:02:00 Reynold Jones [facility] CORONAVIRUS COVID-19 2019-11-22 17:09:00 [facility] POCT URINALYSIS 2019-11-18 13:49:00 Carla Rajan [facility] POCT URINALYSIS 2019-11-11 14:00:00 Carla Rajan [facility] POCT URINALYSIS 2019-10-27 17:09:00 Carla Rajan [facility] AUTHORIZATION TO RELEASE 2019-10-09 06:01:00 Doctor Matthew, [facility] PHI TO [facility] TDAP VACCINE, >11 YRS, IM 2019-09-30 20:39:21 Carla Rajan [facility] FLU VACC ([phone]), 6+ 2019-09-30 20:22:55 Carla Rajan [facility] MONTHS, IM, QUAD [facility] POCT URINALYSIS W/O 2019-09-30 19:35:00 Carla Rajan [facility] [place] SPECIFIC GRAVITY [facility] POCT TEST 2019-09-30 19:34:00 Carla Rajan [facility] ASSIGNMENT OF BENEFITS 2019-09-30 19:11:56 [facility] En[facility] Start End Encounter Admission Attending Care Care Encounter Source Date/Time Date/Time Type Type Clinicians Facility Department ID 2021-06-09 Outpatient [facility] [id number] Univers 17:44:35 [facility] 2023-05-17 2023-05-17 Outpatient R RUDDY COLBERT [facility] B [id number] Univers 15:30:00 15:30:00 RUDDY COLBERT [facility] 2023-04-30 2023-04-30 Outpatient Bernabe TILLEY [facility] [id number] Univers 16:00:00 16:00:00 ERIN christie [facility] 2023-04-27 2023-04-27 Outpatient Bernabe TILLEY [facility] [id number] Univers 13:00:00 13:00:00 ERIN christie [facility] 2023-03-29 2023-03-29 Outpatient R RUDDY COLBERT [facility] B [id number] Univers 16:30:00 16:37:41 RUDDY COLBERT [facility] 2023-03-29 2023-03-29 Office Wesley NHJUAN NAPPANEE [id number] Univers 16:30:00 16:37:41 Visit Ruddy BULLARD [id number] it y of WOM[facility]'S [id number] [facility] [id number] [place] [id number] Branch 2023-02-07 2023-02-07 Outpatient R RUDDY COLBERT [facility] B [id number] Univers 13:00:00 13:00:00 RUDDY COLBERT [facility] 2022-12-13 2022-12-13 Outpatient [facility] [id number] 16:42:16 16:42:16 [id number] Gee 2022-12-13 2022-12-13 Outpatient R [facility] [id number] Univers 15:15:00 15:15:00 ity of [facility] 2022-11-22 2022-11-22 Telephone [facility] 1.2.840.114 [id number] Univers 00:00:00 00:00:00 Brittni BULLARD 350.1.13.10 it [place] [facility] [id number] [address] 2022-11-21 2022-11-21 Orders Doctor MARTE 1.2.840.114 [id number] Univers 00:00:00 00:00:00 Only Unassigned, LUKE 350.1.13.10 ity of [place] [facility] 4.2.7.2.686 Juan as [id number] [place] [address] [address] 2022-11-20 2022-11-20 Telephone [facility] 1.2.840.11 [id number] Univers 00:00:00 00:00:00 Ruddy BULLARD 350.1.13.10 [place] [facility] [id number] [address] 2022-11-16 2022-11-16 Telephone [facility] 1.2.840.11 [id number] Univers 00:00:00 00:00:00 Ruddy BULLARD 350.1.13.10 it y of WOMEN'S 4.2.7.2.686 [facility] [id number] [address] 2022-11-15 2022-11-15 Outpatient R RUDDY COLBERT [facility] B [id number] Univers 14:30:00 15:04:36 RUDDY COLBERT [facility] 2022-11-15 2022-11-15 Office [facility] 1.2.840.114 [id number] Univers 14:30:00 15:04:36 Visit Ruddy BULLARD 350.1.13.10 [place] [id number] [address] 2022-11-14 2022-11-14 [facility] [id number] Univers 15:00:00 15:16:26 [facility] 2022-11-14 2022-11-14 Office [facility] 1.2.840.114 [id number] Univers 15:00:00 15:16:26 Visit Ruddy BULLARD 350.1.13.10 it [place] [id number] [address] 2022-11-10 2022-11-10 [facility] [id number] Univers 13:00:00 13:04:39 [facility] 2022-11-10 2022-11-10 Office [facility] 1.2.840.114 [id number] Univers 13:00:00 13:04:39 Visit Ruddy BULLARD 350.1.13.10 it [place] [id number] [address] 2022-11-10 2022-11-10 Orders Doctor ESTUARDO 1.2.840.114 [id number] Univers 00:00:00 00:00:00 Only Unassigned, [place] 350.1.13.10 ity of [place] [facility] 4.2.7.2.686 Juan as [phone] [place] [address] [address] 2020-11-02 2020-11-02 Patient Zander [facility] 1.2.840.114 [id number] Univers 00:00:00 00:00:00 Outreach Declan BULLOCK 350.1.13.10 i ty of [facility] 4.2.7.2.686 [place] [id number] Mi dical [address] 2020-01-07 2020-01-07 Office Cha, [facility] 1.2.840.114 [id number] Univers 09:23:30 10:10:21 Visit Rashid R [place] 350.1.13.10 ity of [facility] 4.2.7.2.686 Juan as MATERNAL [id number] Med ical & CHILD [address] [place] [address] 2020-01-07 2020-01-07 Outpatient R STARLA [facility] [id number] [facility] 09:00:00 09:00:00 RASHID christie o f [facility] 2020-01-07 2020-01-07 Orders Doctor ESTUARDO 1.2.840.114 [id number] Univers 00:00:00 00:00:00 Only Unassigned, [place] 350.1.13.10 ity of [place] [facility] 4.2.7.2.686 Juan as [id number] [address] 2019-12-16 2019-12-16 Outpatient R STARLA [facility] [id number] [facility] 09:15:00 09:15:00 RASHID murrayjamaica o oscar [facility] 2019-12-16 2019-12-16 [facility] 1.2.840.114 [id number] Univers 07:34:01 09:03:14 ne Visit Rashid Bernabe [place] 350.1.13.10 ity of [facility] 4.2.7.2.686 Juan as MATERNAL [id number] [facility] & CHILD [address] [place] [address] 2019-12-16 2019-12-16 [facility]medici [facility] 1.2.840.114 [id number] 07:34:01 09:03:14 ne Visit Rashid R [place] 350.1.13.10 REGIONAL 4.2.7.2.686 MATERNAL [id number] & [address] 2019-11-28 2019-11-28 Nurse Visit, RebecaRmchp Nurse [facility] 1.2 .840.114 [id number] Univers 14:57:15 15:27:42 Visit Akinsipe, Carla C [place] 350.1.13. 10 ity of REGIONAL 4.2.7.2.686 Juan as MATERNAL [id number] [facility] & CHILD [address] [place] [address] 2019-11-28 2019-11-28 Nurse Visit, [facility] 1.2.840.114 [id number] 14:57:15 15:27:42 Visit [facility] [place] 350.1.13.10 Nurse [facility] 4.2.7.2.686 MATERNAL [id number] & CHILD [address] [place] [address] 2019-11-28 2019-11-28 Outpatient R AKINSIPE, [facility] [id number] Univers 15:00:00 15:00:00 CARLA ity o [facility] 2019-11-25 2019-11-25 Outpatient R AKINSIPE, [facility] [id number] Univers 09:30:00 09:30:00 CARLA ity o [facility] 2019-11-25 2019-11-25 Outpatient R AKINSIPE, [facility] [id number] Univers 09:15:00 09:15:00 CARLA ity o [facility] 2019-11-22 2019-11-24 [facility] [id number] [facility] 11:49:00 12:16:00 Encounter Fidelia [place] 350.1.13.10 ity of [facility] 4.2.7.2.686 Juan as [id number] [address] 2019-11-22 2019-11-24 [facility] EST[facility] 1.2.469.507 [id number] 11:49:00 12:16:00 Encounter Fidelia [place] 350.1.13.10 HOSPITAL 4.2.7.2.686 [id number] 038 2019-11-18 2019-11-18 Routine Akinsipe, [facility] 1.2.239.728 [id number] Univers 08:34:45 08:55:27 Carla C [place] 350.1.13.10 ity of Visit REGIONAL 4.2.7.2.686 Juan as MATERNAL [id number] [facility] & CHILD [address] [place] [address] 2019-11-18 2019-11-18 Routine Akinsipe, [facility] 1.2.291.428 [id number] 08:34:45 08:55:27 Carla C [place] 350.1.13.10 Visit REGIONAL 4.2.7.2.686 MATERNAL [id number] & CHILD [address] [facility] 2019-11-18 2019-11-18 Outpatient R AKINSIPE, [facility] [id number] Univers 08:45:00 08:45:00 CARLA ity o f [facility] 2019-11-11 2019-11-11 Routine Akinsipe, [facility] 1.2.866.396 [id number] Univers 08:49:21 09:26:07 Carla C [place] 350.1.13.10 ity of Visit REGIONAL 4.2.7.2.686 Juan as MATERNAL [id number] Med ical & CHILD [address] [place] [address] 2019-11-11 2019-11-11 Routine Akinsipe, [facility] 1.2.373.734 [id number] 08:49:21 09:26:07 Carla C [place] 350.1.13.10 Visit REGIONAL 4.2.7.2.686 MATERNAL [id number] & CHILD [address] [place] [address] 2019-11-11 2019-11-11 Outpatient R AKINSIPE, [facility] [id number] Univers 09:00:00 09:00:00 CARLA ity o f [facility] 2019-10-27 2019-10-27 Routine Akinsipe, [facility] 1.2.818.933 [id number] Univers 09:42:46 12:09:33 Carla C [place] 350.1.13.10 ity of Visit REGIONAL 4.2.7.2.686 Juan as MATERNAL [id number] [facility] ical & CHILD [address] [place] [address] 2019-10-27 2019-10-27 Outpatient R AKINSIPE, [facility] [id number] Univers 09:30:00 09:30:00 CARLA ity o f [facility] 2019-10-13 2019-10-13 Routine Faculty, Han Basilio [facility] 1.2 .840.114 [id number] Univers 08:47:13 11:29:01 AishwaryaLeandro [place] 350.1.13.10 ity of Visit [facility] 4.2.7.2.686 Juan as MATERNAL [id number] [facility] ical & CHILD [address] [place] [address] 2019-10-13 2019-10-13 Outpatient R [facility] [id number] Univers 09:00:00 09:00:00 ity of [facility] 2019-10-09 2019-10-09 Orders Doctor ESTUARDO 1.2.840.114 [id number] Univers 00:00:00 00:00:00 Only Unassigned, LUKE 350.1.13.10 ity of [facility] 4.2.7.2.686 Juan as [id number] [address] 2019-10-02 2019-10-02 [facility] 1.2 .840.114 [id number] [facility] 09:02:47 09:32:54 Visit Carla Rajan [place] 350.1.13. 10 ity of [facility] 4.2.7.2.686 Juan as MATERNAL [id number] [facility] ical & CHILD [address] [place] [address] 2019-10-01 2019-10-01 General Partner Ultrasound, Rebecabrandy [facility] 1.2 .840.114 [id number] Univers 09:01:49 10:01:49 Visit Carla Rajan [place] 350.1.13. 10 ity of [facility] 4.2.7.2.686 Juan as MATERNAL [id number] [facility] ical & CHILD [address] [facility] 2019-10-01 2019-10-01 [facility] 1.2.840. 114 [id number] Univers 08:36:33 08:41:17 Visit Carla Rajan [place] 350.1.13. 10 ity of [facility] 4.2.7.2.686 Juan as MATERNAL [id number] [facility] ical & CHILD [address] [place] [address] 2019-10-01 2019-10-01 Abstract Satinder [facility] 1.2.840.114 [id number] Univers 00:00:00 00:00:00 Carla C [place] 350.1.13.10 ity of REGIONAL 4.2.7.2.686 Juan as MATERNAL [id number] [facility] ical & CHILD [address] [place] [address] 2019-10-01 2019-10-01 Telephone [facility] 1.2.840.114 [id number] Univers 00:00:00 00:00:00 Carla C [place] 350.1.13.10 ity of [facility] 4.2.7.2.686 Juan as MATERNAL [id number] [facility] ical & CHILD [address] [place] [address] 2019-09-30 2019-09-30 Initial [facility] 1.2.810.125 [id number] Univers 13:30:37 14:59:32 Carla C [place] 350.1.13.10 ity of Visit [facility] 4.2.7.2.686 Juan as MATERNAL [id number] [facility] [address] [place] [address] 2019-09-30 2019-09-30 Orders Doctor ESTUARDO 1.2.840.114 [id number] Univers 00:00:00 00:00:00 Only Unassigned, LUKE 350.1.13.10 ity of [place] [facility] 4.2.7.2.686 Juan as [id number] [address] Results Test Description Test Time Test Comments Results Result Comments Source POCT TEST 2022-11-15 19:42:00 Test Item Value Reference Range Interpretation Comme nts POCT PREG (test code = 1605) Negative On board controls acceptable with C Line (test code = 3574) Yes POCT PREG LOT # (test code = 3575) POCT PREG TEST DATE (test code = 3576) [id number] 19:42:00 Test Item Value Reference Range Interpretation Comments POCT PREG (test code = 1605) Negative On board controls acceptable with C Yes Line (test code = 3574) POCT PREG LOT # (test code = 3575) POCT PREG TEST DATE (test code = 3576) [facility] [id number] 14:33:00 Test Item Value Reference Range Interpretation Comments POCT PREG (test code = 1605) Negative On board controls acceptable with C Yes Line (test code = 3574) POCT PREG LOT # (test code = 3575) POCT PREG TEST DATE (test code = 3576) [facility] [id number] 14:33:00 Test Item Value Reference Range Interpretation Comments POCT PREG (test code = 1605) Negative On board controls acceptable with C Yes Line (test code = 3574) POCT PREG LOT # (test code = 3575) POCT PREG TEST DATE (test code = 3576) [facility] - SYPHILIS [id number] 15:38:00 Test Item Value Reference Range Interpretation Comments Syphilis IgG/IgM (test Non-reactive Non-reactive code = 49712-1) JOSE RAFAEL (test code = JOSE RAFAEL) Non-reactive - No serologic evidence of T. pallidum infection. Cannot exclude incubating or early syphilis. Submit a second specimen in 2-4 weeks if syphilis is clinically suspected. Equivocal - Further testing to follow. Reactive - Further testing to follow. Lab Interpretation (test Normal code = 42452-8) [facility] Hospital[facility] WITH [id number] 09:57:00 Test Item Value Reference Range Interpretation Comments WBC (test code = See_Comment H [Automated 4590-2) message] The system which generated this result transmit gianna reference range : 4.50 - 13.50 10*3/?L. The reference range was not used to interpret this result as normal/abnormal . RBC (test code = See_Comment L [Automated 219-8) message] The system which generated this result [...] RDW-SD (test code = 44.9 fL 38.5-49 23230-1) RDW-CV (test code = 13.5 % 11.5-14 788-0) PLT (test code = See_Comment [Automated 777-3) message] The system which generated this result transmit gianna reference range : 135 - 361 10*3/ ?L. The reference range was not u sed to interpret th is result as normal/abnormal . MPV (test code = 11.5 fL 9.4-13.3 87834-0) NRBC/100 WBC (test See_Comment [Automat ed code = 5339337201) message] The system which generated this result transmit gianna reference range : 0.0 - 10.0 /100 WBCs. The reference range was not used to interpret this result as normal/abnormal . NRBC x10^3 (test code <0.01 See_Comment [Auto mated = 4996516385) message] The system which generated this result transmit gianna reference range : 10*3/?L. The reference range was not used to interpret this result as normal/abnormal . GRAN MAT (NEUT) % 82.3 % (test code = 770-8) IMM GRAN % (test code 1.00 % = 8990546795) LYMPH % (test code = 10.2 % 736-9) MONO % (test code = 5.6 % 5905-5) EOS % (test code = 0.5 % 713-8) BASO % (test code = 0.4 % 706-2) GRAN MAT x10^3(ANC) 14.09 10*3/uL 1.5-10.3 H (test code = 6552794000) IMM GRAN x10^3 (test 0.17 10*3/uL 0-0.06 H code = 4292169595) LYMPH x10^3 (test code 1.74 10*3/uL 0.7-7.4 = 731-0) MONO x10^3 (test code 0.96 10*3/uL 0-0.5 H = 742-7) EOS x10^3 (test code = 0.09 10*3/uL 0-0.4 711-2) BASO x10^3 (test code 0.06 10*3/uL 0-0.1 = 704-7) BANDS (test code = Increased A 1242533218) Lab Interpretation Abnormal (test code = 22908-2) [facility]D) IMMUNE [id number] 04:07:12 Test Item Value Reference Range Interpretation Comments RHIG CANDIDATE? No- see comment Patient i s not a (test code = candidate for R hIg- 5055) Patient is Rh Positive.Perfor med at [facility] Laboratory Services - [facility] Blood [address] [address]Lpgq Free: [phone] A No. [id number] [facility] HospitalARTERIAL CORD [id number] 23:57:00 Test Item Value Reference Range Interpretation Comments BASE EXCESS, CORD (test mEq/L code = 1839215265) AC PH, CORD (BEAKER) 7.18-7.38 (test code = 4134418623) PC02, CORD (test code = See_Comment H [Au tomated message] 7383911990) The system [employer] generated this result transmitted ref erence range: 32 - 66 mmHg. The reference r devin was not used to interpret this result as normal/abnor mal. PO2, CORD (test code = See_Comment [Aut omated message] 9403303896) The system [employer] generated this result transmitted ref erence range: 10 - 30 mmHg. The reference r devin was not used to interpret this result as normal/abnor mal. BICARBONATE, CORD (test See_Comment H [Au tomated message] code = 3002242106) The syste m which generated this result transmitted ref erence range: 17 - 27 mEq/L. The reference r devin was not used to interpret this result as normal/abnor mal. Lab Interpretation (test Abnormal code = 28045-4) [facility] Hospital[facility] CORD [id number] 23:52:00 Test Item Value Reference Range Interpretation Comments VENOUS BASE EXCESS, CORD mEq/L (test code = 8744644017) VENOUS PH, CORD (test 7.25-7.45 code = 0273250817) VENOUS PC02, CORD (test See_Comment H [Au tomated message] code = 2171256096) The syste m which generated this result transmitted ref erence range: 27 - 49 mmHg. The reference r devin was not used to interpret this result as normal/abnor mal. VENOUS PO2, CORD (test See_Comment [Aut omated message] code = 6637530024) The syste m which generated this result transmitted ref erence range: 17 - 41 mmHg. The reference r devin was not used to interpret this result as normal/abnor mal. VENOUS BICARBONATE, CORD See_Comment [A utomated message] (test code = 4821615254) The system which generated this result transmitted ref erence range: 12 - 29 mEq/L. The reference r devin was not used to interpret this result as normal/abnor mal. Lab Interpretation (test Abnormal code = 66431-1) [facility] HospitalHepatitis B Surface [id number] 22:06:00 Test Item Value Reference Range Interpretation Comments HBsAg Semi-Quantitative (test code = Negative Negative 5195-3) [facility] HospitalType and Screen - ONCE [id number] 21:39:44 Test Item Value Reference Range Interpretation Comments ABO & RH (test code O POSITIVE Performe d at [facility] = 20) Laboratory Serv [facility] [place] [address] s [address]Rjhh Free: [phone] A No. [id number] IAT (test code = Negative Performed a t [facility] 1185) Laboratory [facility] [address] [place] [address] s [address]Mkyj Free: [phone] A No. [id number] [facility] HospitalCORON[facility]IRUS COVID-19 [id number] 18:00:00 Test Item Value Reference Range Interpretation Comments SARS-CoV-2 (test code = Not Detected Not Detected 84168-0) JOSE RAFAEL (test code = JOSE RAFAEL) ID NOW COVID-19 Assay is an isothermal nucleic acid amplification test intended for the qualitative detection of nucleic acid from SARS-CoV-2 viral RNA in nasopharyngeal (PIPELINE CONSTRUCTION INSPECTOR) specimens. It is used under Emergency Use [...] indicated. Lab Interpretation Normal (test code = 47188-3) [facility] URINALYSIS W SPECIFIC [id number] 13:49:00 Test Item Value Reference Range Interpretation [...] POCT U APPEAR (test code = 3267) [facility] URINALYSIS W SPECIFIC [id number] 14:00:00 Test Item Value Reference Range Interpretation [...] POCT U APPEAR (test code = 3267) [facility] URINALYSIS W SPECIFIC [id number] 14:00:00 Test Item Value Reference Range Interpretation [...] POCT U APPEAR (test code = 3267) [facility] URINALYSIS W SPECIFIC [id number] 17:09:00 Test Item Value Reference Range Interpretation [...] POCT U APPEAR (test code = 3267) [facility] URINALYSIS W/O SPECIFIC [id number] 19:35:00 Test Item Value Reference Range Interpretation [...] code = 3257) Neg Negative - Negative [facility] URINALYSIS W/O SPECIFIC [id number] 19:35:00 Test Item Value Reference Range Interpretation [...] code = 3257) Neg Negative - Negative [facility] URINALYSIS W/O SPECIFIC [id number] 19:35:00 Test Item Value Reference Range Interpretation [...] code = 3257) Neg Negative - Negative [facility] URINALYSIS W/O SPECIFIC [id number] 19:35:00 Test Item Value Reference Range Interpretation [...] code = 3257) Neg Negative - Negative [facility] [id number] 19:34:00 Test Item Value Reference Range Interpretation Comments POCT PREG (test code = 1605) Positive On board controls acceptable with C Yes Line (test code = 3574) POCT PREG LOT # (test code = 3575) POCT PREG TEST DATE (test code = 3576) [facility] [id number] 19:34:00 Test Item Value Reference Range Interpretation Comments POCT PREG (test code = 1605) Positive On board controls acceptable with C Yes Line (test code = 3574) POCT PREG LOT # (test code = 3575) POCT PREG TEST DATE (test code = 3576) [facility] [id number] 19:34:00 Test Item Value Reference Range Interpretation Comments POCT PREG (test code = 1605) Positive On board controls acceptable with C Yes Line (test code = 3574) POCT PREG LOT # (test code = 3575) POCT PREG TEST DATE (test code = 3576) [facility]PO[facility] [id number] 19:34:00 Test Item Value Reference Range Interpretation Comments POCT PREG (test code = 1605) Positive On board controls acceptable with C Yes Line (test code = 3574) POCT PREG LOT # (test code = 3575) POCT PREG TEST DATE (test code = 3576) [facility]
[2023-06-02 17:44] LABS: Absolute Lymphocytes (CBC) 0.4 K/uL (0.7-4.9); Hematocrit 34.8 % (36.0-45.0); Lymphocytes % 4.2 % (15.3-44.8); MCV 84.1 fL (80-100); MPV 9.4 fL (7.6-11.3); Platelets 185 thou/uL (152-406); RBC Red Blood Cell Count 4.13 M/uL (3.86-4.86)
[2023-06-02] MEDS ORDERED: NA CHLORIDE 0.9% 1,000 ML ONE (17:44)
[2023-06-02 17:52] LABS: Specific Gravity 1.009 (1.005-1.030)
[2023-06-02 17:55] LABS: Urine Bacteria None Seen /HPF (<20); Urine Bilirubin Negative (Negative); Urine Clarity Clear (Clear); Urine Color Colorless (Yellow); Urine Glucose Negative (Negative); Urine Mucus Slight /HPF (None Seen); Urine RBC <5 /HPF (None Seen)
[2023-06-02 17:56] LABS: Urine Blood Negative (Negative); Urine Protein Negative (Negative); Urine Urobilinogen Normal (Normal)
[2023-06-02 17:57] LABS: Specific Gravity 1.009 (1.005-1.030)
[2023-06-02 17:59] LABS: Barbiturates NEGATIVE (NEGATIVE); Benzodiazepines NEGATIVE (NEGATIVE); Cocaine NEGATIVE (NEGATIVE); METHAMPHETAM NEGATIVE (NEGATIVE); Opiates NEGATIVE (NEGATIVE); Phencyclidine NEGATIVE (NEGATIVE); THC Cannibis NEGATIVE (NEGATIVE)
[2023-06-02 18:00] LABS: Methadone ND (NEGATIVE)
[2023-06-02 18:02] LABS: BUN Blood Urea Nitrogen 8 mg/dL (7-18); Bicarbonate 27 mEq/L (21-32); Glomerular Filtration Rate 129 ml/min (=/>90); Glucose Level 103 mg/dL (74-106); Potassium 3.4 mEq/L (3.5-5.1); Sodium Level 135 mEq/L (136-145)
[2023-06-02 18:12] LABS: Blood Morphology Comment NOT SEEN (NOT SEEN); Platelet Estimate ADEQ; White Blood Cell Scan OK (OK)
--- NOTE | 2023-06-02 18:13 | ER ---
Nurse's Notes [facility] Name: Atiya Castellanos Age: 22 yrs Sex: Female : 2000 Arrival Date: 06/02/2023 Time: 17:18 Bed 2 Private MD: Diagnosis: Heat syncope Presentation: 06/02 17:26 Chief complaint: Family reports she complained about not feeling well this afternoon, ld1 had syncopal episode while in the car just [employer]. Carried in from car by family, minimally responsive upon arrival. Coronavirus screen: At this time, the client does not indicate any symptoms associated with coronavirus-19. Ebola Screen: No symptoms or risks identified at this time. Initial Sepsis Screen: Does the patient meet any 2 criteria? No. Patient's initial sepsis screen is negative. Does the patient have a suspected source of infection? No. Patient's initial sepsis screen is negative. Risk Assessment: Do you want to hurt yourself or someone else? Patient reports no desire to harm self or others. Onset of symptoms was June 02, 2023. 17:26 Method Of Arrival: Carried ld1 17:26 Acuity: CHRIS 2 ld1 Historical: - Allergies: 17:28 Milk/dairy products; ld1 17:28 Soy; ld1 - PMHx: 17:28 Bipolar disorder; ld1 - PSHx: 17:28 section; eye; ld1 - Immunization history:: Adult Immunizations unknown. - Social history:: Smoking status: Patient denies any tobacco usage or history of. Screenin:37 [facility] ED Fall Risk Assessment (Adult) History of falling in the last 3 months, ld1 including since admission No falls in past 3 months (0 pts). Abuse screen: Denies threats or abuse. Denies injuries from another. Nutritional screening: No deficits noted. Tuberculosis screening: No symptoms or risk factors identified. Assessment: 17:37 General: Appears in no apparent distress. comfortable, Behavior is cooperative, drowsy. ld1 Pain: Denies pain. Neuro: Level of Consciousness is awake, Oriented to person, place, time, situation, Reports a syncopal episode. Cardiovascular: Capillary refill < 3 seconds Patient's skin is warm and dry. Rhythm is sinus rhythm. Respiratory: Airway is patent Respiratory effort is even, unlabored. GI: Abdomen is flat, non-distended. : No signs and/or symptoms were reported regarding the genitourinary system. EENT: No signs and/or symptoms were reported regarding the EENT system. Derm: No signs and/or symptoms reported regarding the dermatologic system. Musculoskeletal: No signs and/or symptoms reported regarding the musculoskeletal system. Vital Signs: 17:23 BP 122 / 74; Pulse 100; Resp 22; Pulse Ox 99% on R/A; ld1 17:26 BP 122 / 74; Pulse 99; Resp 29; Pulse Ox 99% on R/A; ld1 17:37 BP 111 / 68; Pulse 97; Resp 20; Pulse Ox 100% on R/A; ld1 18:12 BP 114 / 71; Pulse 100; Resp 18; Pulse Ox 100% on R/A; ld1 ED Course: 17:20 Patient arrived in ED. mr 17:23 Felicitas Fry, DWAYNE is PHCP. [facility] 17:23 Emanuel Delgado MD is Attending Physician. [facility] 17:24 Elizabeth Michele, LEONORA is Primary Nurse. ld1 17:28 Triage completed. ld1 17:28 Arm band placed on. ld1 17:28 Inserted saline lock: 18 gauge in right antecubital area, using aseptic technique. hb Blood collected. 17:37 Patient has correct armband on for positive identification. Placed in gown. Bed in low ld1 position. Call light in reach. Side rails up X2. hospital monitor on. Pulse ox on. NIBP on. Door closed. Noise minimized. Warm blanket given. 17:37 No provider procedures requiring assistance completed. Straight cath inserted, using ld1 sterile technique, 16 Fr. Specimen obtained. Returned clear yellow urine. Patient tolerated well. 18:19 IV discontinued, intact, bleeding controlled, No redness/swelling at site. ld1 Administered Medications: 17:33 Drug: NS 0.9% IV 1000 ml IV at 1 bolus Per protocol; 1000 mL bolus Route: IV; Rate: 1 hb bolus; Site: right antecubital; Medication: 17:37 VIS not applicable for this client. ld1 Outcome: 18:13 Discharge ordered by . [facility] 18:19 Discharged to home ambulatory, with family, ld1 18:19 Condition: stable 18:19 Discharge instructions given to patient, Instructed on discharge instructions, follow up and referral plans. Demonstrated understanding of instructions, follow-up care, 18:24 Patient left the ED. ld1 Signatures: Weber Holli, Reg Reg mr Chanel Kessler RN LEONORA Elizabeth Michele RN RN ld1 Felicitas Fry, SILK SCREEN LAYOUT DRAFTER SILK SCREEN LAYOUT DRAFTER 7 Corrections: (The following items were deleted from the chart) 17:34 17:26 Chief complaint: Family reports she complained about not feeling well this hb afternoon, had syncopal episode while in the car just prior to arriaval. ld1 17:38 17:28 Inserted saline lock: 18 gauge in right antecubital area, using aseptic hb technique. Blood collected. ld1
--- NOTE | 2023-06-02 18:13 | EDPHYS ---
Physician Documentation [facility] Name: Atiya Castellanos Age: 22 yrs Sex: Female : 2000 Arrival Date: 06/02/2023 Time: 17:18 Bed 2 Private MD: ED Physician Emanuel Delgado HPI: 06/02 17:20 This 22 yrs old Female presents to ER via Carried with complaints of Syncope. jh7 17:20 The patient has experienced syncope, lost consciousness. Onset: The symptoms/episode jh7 began/occurred acutely. Context: the episode(s) was witnessed, by a significant other, occurred outdoors, in the car. Associated injury: The patient did not suffer any apparent associated injury. Associated signs and symptoms: Pertinent negatives: abdominal pain, blurred vision, chest pain, combativeness. 17:20 The patient's significant other reports that they were outside in the heat at an event jh7 and the patient stated that she did not feel well. Reports that she passed out when she got to the car.. Historical: - Allergies: 17:28 Milk/dairy products; ld1 17:28 Soy; ld1 - PMHx: 17:28 Bipolar disorder; ld1 - PSHx: 17:28 section; eye; ld1 - Immunization history:: Adult Immunizations unknown. - Social history:: Smoking status: Patient denies any tobacco usage or history of. ROS: 17:20 Constitutional: Negative for fever, chills, and weight loss, Eyes: Negative for injury, jh7 pain, redness, and discharge, Neck: Negative for injury, pain, and swelling, Cardiovascular: Negative for chest pain, palpitations, and edema, Respiratory: Negative for shortness of breath, cough, wheezing, and pleuritic chest pain, Abdomen/GI: Negative for abdominal pain, nausea, vomiting, diarrhea, and constipation, Back: Negative for injury and pain, MS/Extremity: Negative for injury and deformity, Skin: Negative for injury, rash, and discoloration, 17:20 Neuro: Positive for syncope, Negative for numbness, tingling, visual changes, 17:20 All other systems are negative, Exam: 17:20 Constitutional: This is a well developed, well nourished patient who is awake, alert, jh7 and in no acute distress. Head/Face: Normocephalic, atraumatic. Cardiovascular: Regular rate and rhythm with a normal S1 and S2. No gallops, murmurs, or rubs. Normal PMI, no JVD. No pulse deficits. Respiratory: Lungs have equal breath sounds bilaterally, clear to auscultation and percussion. No rales, rhonchi or wheezes noted. No increased work of breathing, no retractions or nasal flaring. Abdomen/GI: Soft, non-tender, with normal bowel sounds. No distension or tympany. No guarding or rebound. No evidence of tenderness throughout. Skin: Warm, dry with normal turgor. Normal color with no rashes, no lesions, and no evidence of cellulitis. MS/ Extremity: Pulses equal, no cyanosis. Neurovascular intact. Full, normal range of motion. 17:20 Neuro: Sensation: is normal, Patient flutters eyes and states "where am I?". When given commands she shuts her eyes and let limbs hang freely. However when arm is placed in front of face, patient is able to hold arm up to avoid hitting herself., 18:18 Neuro: Orientation: to person, place, time \\T\\ situation. Mentation: is normal, Memory: jh7 is normal, Cranial nerves: grossly normal, Cerebellar function: is grossly normal, Motor: is normal, Vital Signs: 17:23 BP 122 / 74; Pulse 100; Resp 22; Pulse Ox 99% on R/A; ld1 17:26 BP 122 / 74; Pulse 99; Resp 29; Pulse Ox 99% on R/A; ld1 17:37 BP 111 / 68; Pulse 97; Resp 20; Pulse Ox 100% on R/A; ld1 18:12 BP 114 / 71; Pulse 100; Resp 18; Pulse Ox 100% on R/A; ld1 MDM: 17:23 Patient medically screened. [facility] 18:18 Differential Diagnosis: emotional response, idiopathic syncope, seizure, vasovagal jh7 episode, Heat syncope, dehydration. Data reviewed: vital signs, nurses notes, lab test result(s), EKG. I considered the following discharge prescriptions or medication management in the emergency department Medications were administered in the Emergency Department. See MAR. Independent interpretation of the following test(s) in the Emergency Department EKG: See my EKG interpretation above. Historians other than the Patient: Spouse/Significant Other: . Response to treatment: the patient's symptoms have markedly improved after treatment. 06/02 17:38 Order name: Glucose, Ancillary Testing; Complete Time: 18:10 EDMS 06/02 17:39 Order name: Basic Metabolic Panel; Complete Time: 18:10 EDMS 06/02 17:39 Order name: Acetaminophen Level; Complete Time: 18:10 EDMS 06/02 17:39 Order name: Alcohol Serum/Plasma; Complete Time: 18:10 EDMS 06/02 17:39 Order name: Salicylates Level; Complete Time: 18:10 EDMS 06/02 17:39 Order name: CBC with Automated Diff; Complete Time: 18:19 EDMS 06/02 17:39 Order name: Test, Urine; Complete Time: 18:10 EDMS 06/02 17:47 Order name: Urinalysis w/ reflexes; Complete Time: 18:10 EDMS 06/02 17:47 Order name: Urine Drug Screen; Complete Time: 18:10 EDMS 06/02 17:48 Order name: CBC Smear Scan; Complete Time: 18:19 EDMS 06/02 17:24 Order name: EKG; Complete Time: 17:53 jh7 06/02 17:24 Order name: EKG - Nurse/Tech; Complete Time: 17:33 jh7 06/02 17:24 Order name: IV Saline Lock; Complete Time: 17:29 jh7 06/02 17:24 Order name: Labs collected and sent; Complete Time: 17:33 jh7 EC:28 Rate is 96 beats/min. Rhythm is regular. QRS [place] is Normal. MA interval is normal at [facility] 156 msec. QRS interval is normal at 70 msec. QT interval is normal at 326 msec. No Q waves. T waves are Normal. No ST changes noted. Clinical impression: Normal ECG. Administered Medications: 17:33 Drug: NS 0.9% IV 1000 ml IV at 1 bolus Per protocol; 1000 mL bolus Route: IV; Rate: 1 hb bolus; Site: right antecubital; Disposition: 18:51 Co-signature as Attending Physician, Emanuel Delgado MD I agree with the assessment and kdr plan of care. Disposition Summary: 06/02/23 18:13 Discharge Ordered Notes: Location: Home [facility] Problem: new [facility] Symptoms: have improved [facility] Condition: Stable [facility] Diagnosis - Heat syncope jh7 Followup: [facility] - With: Private Physician - When: 2 - 3 days - Reason: Recheck today's complaints Discharge Instructions: - Discharge Summary Sheet [facility] - Syncope [facility] - Heat Exhaustion [facility] Forms: - Medication Reconciliation Form [facility] - Thank You Letter [facility] - Patient Portal Instructions [facility] - Leadership Thank You Letter [facility] Signatures: Dispatcher [employer] EDEmanuel Weiss MD MD [facility] Chanel Kessler RN RN Elizabeth Michele RN RN ld1 Felictias Fry, SAWMILL MOULDER OPERATOR [place] [id number] Corrections: (The following items were deleted from the chart) 18:18 17:20 Context: the episode(s) was witnessed, by a significant other, occurred in the [facility] car, [facility]
--- NOTE | 2023-06-03 13:51 | EKG ---
Test Date: 2023-06-02 Test Time: 17:28:58 Digital Account Supervisor: Jayjay JAVIER MEASUREMENT RESULTS: Intervals: Rate: 96 AL: 156 QRSD: 70 QT: 326 QTc: 411 [place]: P: 58 AL: 156 QRS: 52 T: 12 INTERPRETIVE STATEMENTS: Normal sinus rhythm Normal ECG Compared to ECG 02/06/2023 09:17:27 No significant changes Electronically Signed On 06-03-23 13:49:49 CDT by Paul Reyes
== END 2023-06-02 18:24 | disposition home or self-care (01) ==
LOC: ER 17:18
DX: T67.1XXA Heat syncope, initial encounter (principal)
CPT/HCPCS: 36415; 51702; 80048; 80143; 80179; 80307; 81001; 81025; 82077; 82947; 85025; 93005; 99285; J7030

== ENCOUNTER 2023-06-20 23:32 | Emergency (ER) | payer SELFPAY ==
--- OUTSIDE RECORDS SUMMARY | 2023-06-20 23:37 | XMS REPORT | Continuity of Care Document ---
:2000 Author Organization [facility] t Address [address] [place] [address] [address] [place] [address] Care Team Providers Name Role Phone TREVER ULYSSES Micheal Primary Care Physician Unavailable LINH HUSAIN Attending Clinician Unavailable LINH HUSAIN Attending Clinician Unavailable RUDDY COLBERT Attending Clinician Unavailable RUDDY COLBERT Attending Clinician Unavailable ERIN TILLEY Attending Clinician Unavailable Brittni Martínez RN Attending Clinician Unavailable Doctor Unassigned, [place] Attending Clinician Unavailable RASHID CHA Attending Clinician Unavailable Declan Fermin DO Attending Clinician Rashid Moses Attending Clinician Visit, Qian Nurse Attending Clinician Unavailable Carla Ramos Attending Clinician [phone] CARLA RAJAN Attending Clinician Unavailable Fidelia Billings MD Attending Clinician Faculty, Han Marquez Attending Clinician Unavailable Leandro Neff MD Attending Clinician Ultrasound, Ayden Attending Clinician Unavailable Lab, Qain Attending Clinician Unavailable Fidelia Billings MD Admitting Clinician Payers Payer Name Policy Type Policy Number Effective Date Expiration Date Belinda LOVELL [id number] 2019 HEALTH 00:00:00 MEDICAID OF [place] [id number] 2023 00:00:00 Problems Condition Condition Condition Status Onset Resolution Last Treating Co mments Source Name Details Category Date Date Treatment Clinician Date Encounter Encounter Disease Active Uni vers for IUD for IUD 4-04 ity of insertion insertion 00:00: [facility] Medical Branch Counseling Counseling Disease Active U nivers for for 3- ity of control control 00:00: [place] regarding regarding 00 [facility] intrauteri intrauteri Br anch ne device ne device (IUD) (IUD) Nexplanon Nexplanon Disease Active Uni vers removal removal 3- ity of 00:00: [address] Disease Active 2019-0 U nivers care and care and 5-05 ity of examin[place] examin[place] Medical immediatel immediatel Br anch y after y after delivery delivery BMI BMI Disease Active 2019- Univers 30.0-30.9, 30.0-30.9, 4-11 it y of adult adult 00:00: [address] 37 weeks 37 weeks Disease Active 2019- Unive rs gestation gestation 4-11 ity of of of 00:00: [place] 00 [facility] Chlamydia Chlamydia Disease Active Overview: Univers infection infection -19 Formattin i ty of during during 00:00: g of this [place] 00 note [facility] might be Branch different from the original. Pending MICHAEL -neg Gonorrhea Gonorrhea Disease Active 2020 Overview: Univers in in -19 Formattin ity of 00:00: [place] of this [place] 00 note Medical might be Branch different from the original. MICHAEL at next visit -neg Susceptibl Susceptibl Disease Active 2020-0 Overview : Univers e to e to -19 Formattin ity of varicella varicella 00:00: [place] of this [place] (non-immun (non-immun 00 note Me dical e), e), might be Branch currently currently different from the original. Address pp Supervisio Supervisio Disease Active 2020-0 U nivers n of n of 2-18 ity of high-risk high-risk 00:[place] with with Branch insufficie insufficie nt nt care care Over Over Disease Active 2020- Univers weight weight 2-18 ity of 00:00: 00 Medical Branch Multiparit Multiparit Disease Active 2020-0 U nivers y y 2-18 ity of 00:00: Medical Branch History of History of Disease Active 2020-0 Overview : Univers bipolar bipolar 2-18 Formattin ity o f disorder disorder 00:00: g of this [place] 00 note Medical might be Branch different from the original. Not on meds x1 year History of History of Disease Active 2019-0 Overview : Univers depression depression 2-18 Formattin ity of 00:00: g of this note Medical might be Branch different from the original. Not on meds x1 year History of History of Disease Active 2019- Overview : Univers anxiety anxiety 2-18 Formattin ity o f 00:00: g of this [place] note Medical might be Branch different from the original. Not on meds x1 year History of History of Disease Active 2019-0 Overview : Univers 2-18 Formattin ity o [...] - Unive rs ty to See comments - ity of adverse 00:00: [place] reaction 00 Medical s to Branch drug MILK DRUG Active Other-Cmnt Univer s INGREDI 5- ity of 00:00: [place] 00 Medical Branch SOY DRUG Active Unknown-Cmnt Univ ers INGREDI - ity of 00:00: [place] 00 Medical [place] Social History Social Habit Start Date Stop Date Quantity Comments Source ASSERTION 2019-03-20 University of 00:00:00 [facility] Gender identity Universit y of [facility] Sexual orientation Univer sity of [facility] Alcohol intake 2023-04-03 2023-04-03 Ex-drinker [place] of 00:00:00 00:00:00 (finding) [facility] History of Social 2022-11-14 2022-11-14 Univers ity of function 00:00:00 00:00:00 [facility] Exposure to 2022-10-31 2022-11-10 Not sure University of SARS-CoV-2 (event) 00:00:00 12:18:00 [facility] Tobacco use and 2022-11-10 2022-11-10 Smokeless Universit y of exposure 00:00:00 00:00:00 tobacco non-user [facility] Education 2019-11-22 2019-11-22 11 University of 00:00:00 00:00:00 [facility] Tobacco Comment 2013-06-10 2013-06-10 mom smokes Universit y of 00:00:00 00:00:00 outside [facility] Sex Assigned At [birth year] Universit y of 00:00:00 00:00:00 [facility] Smoking Status Start Date Stop Date Source Never smoked tobacco [facility] Medications Ordered Filled Start Stop Current Ordering Indication Dosage Frequency Signature Comments Components Source Medication Medication Date Date Medication? Clinician (SIG) Name Name doxycycline No [id number] 100mg Take 1 Univers monohydrate 4-14 capsule by i ty of 100 mg 00:00: 04:59 mouth in [place] capsule 00 :00 the Medical morning Branch and 1 capsule in the evening. Do all this for 7 days. doxycycline 2022- No [id number] 100mg Take 1 Univers monohydrate 4-01 14-14 capsule by i ty of 100 mg 00:00: 04:59 mouth in [place] capsule 00 :00 the Medical morning Branch and 1 capsule in the evening. Do all this for 7 days. doxycycline No [id number] 100mg Take 1 Univers monohydrate 4-14 capsule by i ty of 100 mg 00:00: 04:59 mouth in [place] capsule 00 :00 the Medical morning Branch and 1 capsule in the evening. Do all this for 7 days. doxycycline No [id number] 100mg Take 1 Univers monohydrate 4-14 capsule by i ty of 100 mg 00:00: 04:59 mouth in [place] capsule 00 :00 the Medical morning Branch and 1 capsule in the evening. Do all this for 7 days. levonorgest 2022- No [id number] 1{devic Univers reL 11-15 04-05 e} ity of (MIRENA) 21:45: 20:46 [place] IUD 1 00 :00 [employer] Branch levonorgest 2022- No [id number] 1{devic 1 Device, Univers reL 11-15 04-05 e} Intrauteri ity of (MIRENA) 21:45: 20:46 ne, ONCE, [place] IUD 1 00 :00 1 dose, On [employer] 11/15/22 Branch at 1645, Routine levonorgest 2022- No [id number] 1{devic Univers reL 4-05 04-05 e} ity of (MIRENA) 21:45: 20:46 [place] IUD 1 00 :00 [employer] Branch levonorgest 2022- No [id number] 1{devic 1 Device, Univers reL 4-05 04-05 e} Intrauteri ity of (MIRENA) 21:45: 20:46 ne, ONCE, [place] IUD 1 00 :00 1 dose, On [employer] 11/15/22 Branch at 1645, Routine miSOPROStoL Yes [id number] Take 1 Univers 200 mcg 4-04 tablet, by ity of tablet 00:00: mouth, at [place] [address] [facility] the night Branch before IUD insertion procedure. Repeat dose at 0700 am on the morning of IUD insertion for cervical softening; not for abortive purposes. miSOPROStoL Yes [id number] Take 1 Univers 200 mcg 4-04 tablet, by ity of tablet 00:00: mouth, at [address] Medical the night Branch before IUD insertion procedure. Repeat dose at 0700 am on the morning of IUD insertion for cervical softening; not for abortive purposes. miSOPROStoL 2022- No [id number] Take 1 Univers 200 mcg 4-04 04-05 tablet, by ity o f tablet 00:00: 00:00 mouth, at [place] 00 :00 bedtime Medical the night Branch before IUD insertion procedure. Repeat dose at 0700 am on the morning of IUD insertion for cervical softening; not for abortive purposes. miSOPROStoL 2022- No [id number] Take 1 Univers 200 mcg 4-04 04-05 tablet, by ity o f tablet 00:00: 00:00 mouth, at [place] 00 :00 bedtime Medical the night Branch before IUD insertion procedure. Repeat dose at 0700 am on the morning of IUD insertion for cervical softening; not for abortive purposes. etonogestre 2019- No [id number] 68mg Univers l 5-27 05-27 ity of (NEXPLANON) 16:00: 14:55 [place] implant 68 00 :00 Medical mg Branch etonogestre No [id number] 68mg 68 mg, Univers l 01-06 Subdermal, ity of (NEXPLANON) 16:00: 14:55 ONCE NOW, [place] implant 68 00 :00 1 dose, Medica l mg [facility] 01/07/20 at 1100, Routine
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
Use approved by: STOCK CRANE OPERATOR lisdexamfet 2019- No 50mg Take 50 mg Univers amine 11-22 by mouth ity of (VYVANSE) 12:42: 00:00 every [place] 50 mg 10 :00 morning. Medical capsule [place] ARIPiprazol 2019- No 2mg Take 2 mg Univers e (ABILIFY) 11-22 by mouth ity of 2 mg tablet 12:42: 00:00 daily. [place] 10 :00 Medical [place] human 2019- Yes .5mL 0.5 mL, Univers papillomav 12 Intramuscu ity of vac,9-migel(P 12:26: [facility], [place] F) 12 ONCE-PRIOR Medical (GARDASIL-9 TO [place] ) syringe DISCHARGE, 0.5 mL 1 dose, Starting 11/23/19 at 0726, Until Discontinu ed, Routine, Give vaccine prior to discharge varicella 2019- 2020- No .5mL 0.5 mL, Univ ers virus 11-2213 Subcutaneo ity of vaccine 12:26: 16:35 us, [place] live 12 :00 ONCE-PRIOR Medical (VARIVAX TO [place] (PF)) DISCHARGE, injection 1 dose, 0.5 mL [...] Q8HPRN, [place] injection 4 27 Starting Medi aslhey mg Sat Branch 11/22/19 at 2256, Until [...] at 1912, Routine, Analgesia Recovery 2019-0 Yes [id number] 1{tbl} Take 1 Univers vitamin 4-12 tablet by ity of w/FA tablet 00:00: mouth 00 daily. Medical Branch docusate 2020-0 Yes [id number] 240mg Take 1 U nivers calcium 240 4-12 capsule by it y of mg capsule 00:00: mouth once [place] 00 daily as Medical needed for Branch Constipati on. ferrous 2020-0 Yes [id number] 325mg Take 1 Un dustin sulfate 325 4-12 tablet by ity of mg (65 mg 00:00: mouth 2 [place] iron) 00 (two) Medical tablet times Branch daily. ibuprofen 2020-0 Yes [id number] 600mg Take 1 Univers 600 mg 4-12 tablet by ity of tablet 00:00: mouth [place] 00 every 6 Medical (six) Branch hours as needed (Pain). Take with food or milk. 2020-0 Yes [id number] 1{tbl} Take 1 Univers vitamin 4-12 tablet by ity of w/FA tablet 00:00: mouth [place] 00 daily. Medical Branch docusate 2020-0 Yes [id number] 240mg Take 1 U nivers calcium 240 4-12 capsule by it y of mg capsule 00:00: mouth once [place] 00 daily as Medical needed for Branch Constipati on. ferrous 2020-0 Yes [id number] 325mg Take 1 Un dustin sulfate 325 4-12 tablet by ity of mg (65 mg 00:00: mouth 2 [place] iron) 00 (two) Medical tablet times Branch daily. ibuprofen 2020-0 Yes [id number] 600mg Take 1 Univers 600 mg 4-12 tablet by ity of tablet 00:00: mouth [place] 00 every 6 Medical (six) Branch hours as needed (Pain). Take with food or milk. 2020-0 Yes [id number] 1{tbl} Take 1 Univers vitamin 4-12 tablet by ity of w/FA tablet 00:00: mouth [place] 00 daily. Medical Branch docusate 2020-0 Yes [id number] 240mg Take 1 U nivers calcium 240 4-12 capsule by it y of mg capsule 00:00: mouth once [place] 00 daily as Medical needed for Branch Constipati on. ferrous 2020-0 Yes [id number] 325mg Take 1 Un dustin sulfate 325 4-12 tablet by ity of mg (65 mg 00:00: mouth 2 [place] iron) 00 (two) Medical tablet times Branch daily. ibuprofen 2020-0 Yes [id number] 600mg Take 1 Univers 600 mg 4-12 tablet by ity of tablet 00:00: mouth [place] 00 every 6 Medical (six) Branch hours as needed (Pain). Take with food or milk. 2020-0 Yes [id number] 1{tbl} Take 1 Univers vitamin 4-12 tablet by ity of w/FA tablet 00:00: mouth [place] 00 daily. Medical Branch docusate 2020-0 Yes [id number] 240mg Take 1 U nivers calcium 240 4-12 capsule by it y of mg capsule 00:00: mouth once [place] 00 daily as Medical needed for Branch Constipati on. ferrous 2020-0 Yes [id number] 325mg Take 1 Un dustin sulfate 325 4-12 tablet by ity of mg (65 mg 00:00: mouth 2 [place] iron) 00 (two) Medical tablet times Branch daily. ibuprofen 2020-0 Yes [id number] 600mg Take 1 Univers 600 mg 4-12 tablet by ity of tablet 00:00: mouth [place] 00 every 6 Medical (six) Branch hours as needed (Pain). Take with food or milk. 2019-0 Yes [id number] 1{tbl} Take 1 Univers vitamin 4-12 tablet by ity of w/FA tablet 00:00: mouth [place] 00 daily. Medical Branch docusate 2020-0 Yes [id number] 240mg Take 1 U nivers calcium 240 4-12 capsule by it y of mg capsule 00:00: mouth once [place] 00 daily as Medical needed for Branch Constipati on. ferrous 2020-0 Yes [id number] 325mg Take 1 Un dustin sulfate 325 4-12 tablet by ity of mg (65 mg 00:00: mouth 2 [place] iron) 00 (two) Medical tablet times Branch daily. ibuprofen 2020-0 Yes [id number] 600mg Take 1 Univers 600 mg 4-12 tablet by ity of tablet 00:00: mouth [place] 00 every 6 Medical (six) Branch hours as needed (Pain). Take with food or milk. 2020-0 Yes [id number] 1{tbl} Take 1 Univers vitamin 4-12 tablet by ity of w/FA tablet 00:00: mouth [place] 00 daily. Medical Branch docusate 2020-0 Yes [id number] 240mg Take 1 U nivers calcium 240 4-12 capsule by it y of mg capsule 00:00: mouth once [place] 00 daily as Medical needed for Branch Constipati on. ferrous 2020-0 Yes [id number] 325mg Take 1 Un dustin sulfate 325 4-12 tablet by ity of mg (65 mg 00:00: mouth 2 [place] iron) 00 (two) Medical tablet times Branch daily. ibuprofen 2020-0 Yes [id number] 600mg Take 1 Univers 600 mg 4-12 tablet by ity of tablet 00:00: mouth [place] 00 every 6 Medical (six) Branch hours as needed (Pain). Take with food or milk. 2020-0 Yes [id number] 1{tbl} Take 1 Univers vitamin 4-12 tablet by ity of w/FA tablet 00:00: mouth [place] 00 daily. Medical Branch docusate 2020-0 Yes [id number] 240mg Take 1 U nivers calcium 240 4-12 capsule by it y of mg capsule 00:00: mouth once [place] 00 daily as Medical needed for Branch Constipati on. ferrous 2020-0 Yes [id number] 325mg Take 1 Un dustin sulfate 325 4-12 tablet by ity of mg (65 mg 00:00: mouth 2 [place] iron) 00 (two) Medical tablet times Branch daily. ibuprofen 2020-0 Yes [id number] 600mg Take 1 Univers 600 mg 4-12 tablet by ity of tablet 00:00: mouth [place] 00 every 6 Medical (six) Branch hours as needed (Pain). Take with food or milk. 2020-0 Yes [id number] 1{tbl} Take 1 Univers vitamin 4-12 tablet by ity of w/FA tablet 00:00: mouth [place] 00 daily. Medical Branch docusate 2020-0 Yes [id number] 240mg Take 1 U nivers calcium 240 4-12 capsule by it y of mg capsule 00:00: mouth once [place] 00 daily as Medical needed for Branch Constipati on. ferrous 2020-0 Yes [id number] 325mg Take 1 Un dustin sulfate 325 4-12 tablet by ity of mg (65 mg 00:00: mouth 2 [place] iron) 00 (two) Medical tablet times Branch daily. ibuprofen 2020-0 Yes [id number] 600mg Take 1 Univers 600 mg 4-12 tablet by ity of tablet 00:00: mouth [place] 00 every 6 Medical (six) Branch hours as needed (Pain). Take with food or milk. 2020-0 Yes [id number] 1{tbl} Take 1 Univers vitamin 4-12 tablet by ity of w/FA tablet 00:00: mouth [place] 00 daily. Medical Branch docusate 2020-0 Yes [id number] 240mg Take 1 U nivers calcium 240 4-12 capsule by it y of mg capsule 00:00: mouth once [place] 00 daily as Medical needed for Branch Constipati on. ferrous 2020-0 Yes [id number] 325mg Take 1 Un dustin sulfate 325 4-12 tablet by ity of mg (65 mg 00:00: mouth 2 [place] iron) 00 (two) Medical tablet times Branch daily. ibuprofen 2020-0 Yes [id number] 600mg Take 1 Univers 600 mg 4-12 tablet by ity of tablet 00:00: mouth [place] 00 every 6 Medical (six) Branch hours as needed (Pain). Take with food or milk. 2020-0 Yes [id number] 1{tbl} Take 1 Univers vitamin 4-12 tablet by ity of w/FA tablet 00:00: mouth [place] 00 daily. Medical Branch docusate 2020-0 Yes [id number] 240mg Take 1 U nivers calcium 240 4-12 capsule by it y of mg capsule 00:00: mouth once [place] 00 daily as Medical needed for Branch Constipati on. ferrous 2020-0 Yes [id number] 325mg Take 1 Un dustin sulfate 325 4-12 tablet by ity of mg (65 mg 00:00: mouth 2 [place] iron) 00 (two) Medical tablet times Branch daily. ibuprofen 2020-0 Yes [id number] 600mg Take 1 Univers 600 mg 4-12 tablet by ity of tablet 00:00: mouth [place] 00 every 6 Medical (six) Branch hours as needed (Pain). Take with food or milk. 2020-0 Yes [id number] 1{tbl} Take 1 Univers vitamin 4-12 tablet by ity of w/FA tablet 00:00: mouth [place] 00 daily. Medical Branch docusate 2020-0 Yes [id number] 240mg Take 1 U nivers calcium 240 4-12 capsule by it y of mg capsule 00:00: mouth once [place] 00 daily as Medical needed for Branch Constipati on. ferrous 2020-0 Yes [id number] 325mg Take 1 Un dustin sulfate 325 4-12 tablet by ity of mg (65 mg 00:00: mouth 2 [place] iron) 00 (two) Medical tablet times Branch daily. ibuprofen 2020-0 Yes [id number] 600mg Take 1 Univers 600 mg 4-12 tablet by ity of tablet 00:00: mouth [place] 00 every 6 Medical (six) Branch hours as needed (Pain). Take with food or milk. 2020-0 Yes [id number] 1{tbl} Take 1 Univers vitamin 4-12 tablet by ity of w/FA tablet 00:00: mouth [place] 00 daily. Medical Branch docusate 2020-0 Yes [id number] 240mg Take 1 U nivers calcium 240 4-12 capsule by it y of mg capsule 00:00: mouth once [place] 00 daily as Medical needed for Branch Constipati on. ferrous 2020-0 Yes [id number] 325mg Take 1 Un dustin sulfate 325 4-12 tablet by ity of mg (65 mg 00:00: mouth 2 [place] iron) 00 (two) Medical tablet times Branch daily. ibuprofen 2020-0 Yes [id number] 600mg Take 1 Univers 600 mg 4-12 tablet by ity of tablet 00:00: mouth [place] 00 every 6 Medical (six) Branch hours as needed (Pain). Take with food or milk. 2020-0 Yes [id number] 1{tbl} Take 1 Univers vitamin 4-12 tablet by ity of w/FA tablet 00:00: mouth [place] 00 daily. Medical Branch docusate 2020-0 Yes [id number] 240mg Take 1 U nivers calcium 240 4-12 capsule by it y of mg capsule 00:00: mouth once [place] 00 daily as Medical needed for Branch Constipati on. ferrous 2020-0 Yes [id number] 325mg Take 1 Un dustin sulfate 325 4-12 tablet by ity of mg (65 mg 00:00: mouth 2 [place] iron) 00 (two) Medical tablet times Branch daily. ibuprofen 2020-0 Yes [id number] 600mg Take 1 Univers 600 mg 4-12 tablet by ity of tablet 00:00: mouth [place] 00 every 6 Medical (six) Branch hours as needed (Pain). Take with food or milk. 2020-0 Yes [id number] 1{tbl} Take 1 Univers vitamin 4-12 tablet by ity of w/FA tablet 00:00: mouth [place] 00 daily. Medical Branch docusate 2020-0 Yes [id number] 240mg Take 1 U nivers calcium 240 4-12 capsule by it y of mg capsule 00:00: mouth once [place] 00 daily as Medical needed for Branch Constipati on. ferrous 2020-0 Yes [id number] 325mg Take 1 Un dustin sulfate 325 4-12 tablet by ity of mg (65 mg 00:00: mouth 2 [place] iron) 00 (two) Medical tablet times Branch daily. ibuprofen 2020-0 Yes [id number] 600mg Take 1 Univers 600 mg 4-12 tablet by ity of tablet 00:00: mouth [place] 00 every 6 Medical (six) Branch hours as needed (Pain). Take with food or milk. 2020-0 Yes [id number] 1{tbl} Take 1 Univers vitamin 4-12 tablet by ity of w/FA tablet 00:00: mouth [place] 00 daily. Medical Branch docusate 2020-0 Yes [id number] 240mg Take 1 U nivers calcium 240 4-12 capsule by it y of mg capsule 00:00: mouth once [place] 00 daily as Medical needed for Branch Constipati on. ferrous 2020-0 Yes [id number] 325mg Take 1 Un dustin sulfate 325 4-12 tablet by ity of mg (65 mg 00:00: mouth 2 [place] iron) 00 (two) Medical tablet times Branch daily. ibuprofen 2020-0 Yes [id number] 600mg Take 1 Univers 600 mg 4-12 tablet by ity of tablet 00:00: mouth [place] 00 every 6 Medical (six) Branch hours as needed (Pain). Take with food or milk. 2020-0 Yes [id number] 1{tbl} Take 1 Univers vitamin 4-12 tablet by ity of w/FA tablet 00:00: mouth [place] 00 daily. Medical Branch docusate 2020-0 Yes [id number] 240mg Take 1 U nivers calcium 240 4-12 capsule by it y of mg capsule 00:00: mouth once [place] 00 daily as Medical needed for Branch Constipati on. ferrous 2020-0 Yes [id number] 325mg Take 1 Un dustin sulfate 325 4-12 tablet by ity of mg (65 mg 00:00: mouth 2 [place] iron) 00 (two) Medical tablet times Branch daily. ibuprofen 2020-0 Yes [id number] 600mg Take 1 Univers 600 mg 4-12 tablet by ity of tablet 00:00: mouth [place] 00 every 6 Medical (six) Branch hours as needed (Pain). Take with food or milk. 2020-0 Yes [id number] 1{tbl} Take 1 Univers vitamin 4-12 tablet by ity of w/FA tablet 00:00: mouth [place] 00 daily. Medical Branch docusate 2020-0 Yes [id number] 240mg Take 1 U nivers calcium 240 4-12 capsule by it y of mg capsule 00:00: mouth once [place] 00 daily as Medical needed for Branch Constipati on. ferrous 2020-0 Yes [id number] 325mg Take 1 Un dustin sulfate 325 4-12 tablet by ity of mg (65 mg 00:00: mouth 2 [place] iron) 00 (two) Medical tablet times Branch daily. ibuprofen 2020-0 Yes [id number] 600mg Take 1 Univers 600 mg 4-12 tablet by ity of tablet 00:00: mouth [place] 00 every 6 Medical (six) Branch hours as needed (Pain). Take with food or milk. 2020-0 Yes [id number] 1{tbl} Take 1 Univers vitamin 4-12 tablet by ity of w/FA tablet 00:00: mouth [place] 00 daily. Medical Branch docusate 2020-0 Yes [id number] 240mg Take 1 U nivers calcium 240 4-12 capsule by it y of mg capsule 00:00: mouth once [place] 00 daily as Medical needed for Branch Constipati on. ferrous 2020-0 Yes [id number] 325mg Take 1 Un dustin sulfate 325 4-12 tablet by ity of mg (65 mg 00:00: mouth 2 [place] iron) 00 (two) Medical tablet times Branch daily. ibuprofen 2020-0 Yes [id number] 600mg Take 1 Univers 600 mg 4-12 tablet by ity of tablet 00:00: mouth [place] 00 every 6 Medical (six) Branch hours as needed (Pain). Take with food or milk. 2020-0 Yes [id number] 1{tbl} Take 1 Univers vitamin 4-12 tablet by ity of w/FA tablet 00:00: mouth [place] 00 daily. Medical Branch docusate 2020-0 Yes [id number] 240mg Take 1 U nivers calcium 240 4-12 capsule by it y of mg capsule 00:00: mouth once [place] 00 daily as Medical needed for Branch Constipati on. ferrous 2020-0 Yes [id number] 325mg Take 1 Un dustin sulfate 325 4-12 tablet by ity of mg (65 mg 00:00: mouth 2 [place] iron) 00 (two) Medical tablet times Branch daily. ibuprofen 2020-0 Yes [id number] 600mg Take 1 Univers 600 mg 4-12 tablet by ity of tablet 00:00: mouth [place] 00 every 6 Medical (six) Branch hours as needed (Pain). Take with food or milk. 2020-0 Yes [id number] 1{tbl} Take 1 Univers vitamin 4-12 tablet by ity of w/FA tablet 00:00: mouth [place] 00 daily. Medical Branch docusate 2020-0 Yes [id number] 240mg Take 1 U nivers calcium 240 4-12 capsule by it y of mg capsule 00:00: mouth once [place] 00 daily as Medical needed for Branch Constipati on. ferrous 2020-0 Yes [id number] 325mg Take 1 Un dustin sulfate 325 4-12 tablet by ity of mg (65 mg 00:00: mouth 2 [place] iron) 00 (two) Medical tablet times Branch daily. ibuprofen 2020-0 Yes [id number] 600mg Take 1 Univers 600 mg 4-12 tablet by ity of tablet 00:00: mouth [place] 00 every 6 Medical (six) Branch hours as needed (Pain). Take with food or milk. 2020-0 Yes [id number] 1{tbl} Take 1 Univers vitamin 4-12 tablet by ity of w/FA tablet 00:00: mouth [place] 00 daily. Medical Branch docusate 2020-0 Yes [id number] 240mg Take 1 U nivers calcium 240 4-12 capsule by it y of mg capsule 00:00: mouth once [place] 00 daily as Medical needed for Branch Constipati on. ferrous 2020-0 Yes [id number] 325mg Take 1 Un dustin sulfate 325 4-12 tablet by ity of mg (65 mg 00:00: mouth 2 [place] iron) 00 (two) Medical tablet times Branch daily. ibuprofen 2020-0 Yes [id number] 600mg Take 1 Univers 600 mg 4-12 tablet by ity of tablet 00:00: mouth [place] 00 every 6 Medical (six) Branch hours as needed (Pain). Take with food or milk. HYDROcodone 2020-0 2020- No [id number] 1{tbl} Take 1 Univers -acetaminop 4-12 04-20 tablet by it y of hen 5-325 00:00: 04:59 mouth [place] mg tablet 00 :00 every 6 Medical (six) Branch hours as needed (for pain) for up to 7 days. Do not exceed 3 grams of acetaminop hen in 24 hours. HYDROcodone 2019- 2020- No [id number] 1{tbl} Take 1 Univers -acetaminop 11-22- tablet by it y of hen 5-325 00:00: 04:59 mouth [place] mg tablet 00 :00 every 6 Medical (six) Branch hours as needed (for pain) for up to 7 days. Do not exceed 3 grams of acetaminop hen in 24 hours. lactated 2019-2019- No 1000mL at 125 Univ ers ringers [...] Surgical Prophylaxi s
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
Duration of therapy: within 24 hours of surgery lactated 2019-0 2020- No 500mL at 999 Unive rs ringers IV 11-21- mL/hr, 500 it y of infusion 20:00: 20:40 mL, IV [place] 500 mL 00 :00 Infusion, Medical ONCE, 1 Branch dose, 11/22/19 at 1500, Routine D5W-LR IV 2020- No 1000mL at 125 Uni vers infusion 11-21-12 mL/hr, IV ity o f 1,000 mL 19:00: 03:56 Infusion, [place] as 00 :36 CONTINUOUS Medical , Starting Branch 11/22/19 at 1400, Until 11/22/19 at 2256, Routine sodium 2020- No 30mL 30 mL, Univers citrate-cit [...] 00:00: mouth [place] (RIGHT STEP 00 daily. [facility] VITAMINS) 27 mg iron- 0.8 mg per tablet ferrous 2020-0 Yes 325mg Take 1 Univers sulfate 325 3-02 tablet by ity of mg (65 mg 00:00: mouth [place] iron) 00 daily. Medical tablet Branch 2019-0 Yes 1{tbl} Take 1 Unive rs Vit-Iron 3-02 tablet by ity of Fumarate-FA 00:00: mouth [place] (RIGHT STEP 00 daily. [facility] VITAMINS) 27 mg iron- 0.8 mg per tablet ferrous 2020-0 Yes 325mg Take 1 Univers sulfate 325 3-02 tablet by ity of mg (65 mg 00:00: mouth [place] iron) 00 daily. Medical tablet Branch 0 2020- No 1{tbl} Take 1 Univ ers Vit-Iron 3-02 04-12 tablet by ity o f Fumarate-FA 00:00: 00:00 [place] (RIGHT STEP 00 :00 daily. [facility] VITAMINS) 27 mg iron- 0.8 mg per tablet ferrous 2020-0 2020- No 325mg Take 1 Univer s sulfate 325 3-02 04-12 tablet by it y of mg (65 mg 00:00: 00:00 mouth [place] iron) 00 :00 daily. Medical tablet Branch cefTRIAXone 0 2020- No 250mg Univ ers (ROCEPHIN) 10-02-20 ity of injection 17:00: 15:52 [place] 250 mg 00 :00 Medical Branch cefTRIAXone 2019-0 2020- No 250mg 250 mg, U nivers (ROCEPHIN) 10-02-20 Intramuscu it y of injection 17:00: 15:52 [place], ONCE, [place] 250 mg 00 :00 1 dose, Medical [place] Branch 10/02/19 at 1100, GILBERT
Re ason for Anti-Infec tive: Documented Infection< br>Documen gianna Infection Site: Other
O ther site: vagina
Duration of Therapy: Other (see Comments) azithromyci 2020-0 2020- No [id number] 1000mg Take 2 Univers n 500 mg 2-19 02-20 tablets by ity of tablet 00:00: 05:59 mouth [place] 00 :[place] now for 1 Medical dose. Branch azithromyci 2020-0 2020- No [id number] 1000mg Take 2 Univers n 500 mg 2-19 02-20 tablets by ity of tablet 00:00: 05:59 [place] 00 :[place] now for 1 Medical dose. Branch ARIPiprazol 2020-0 Yes 2mg Take 2 mg U nivers e (ABILIFY) 2-18 by mouth ity of 2 mg tablet 19:58: daily. [facility] lisdexamfet 2020-0 Yes 50mg Take 50 mg Univers amine 2-18 by mouth ity of (VYVANSE) 19:58: every [place] 50 mg 26 morning. Medical capsule Branch ARIPiprazol 2020-0 Yes 2mg Take 2 mg U nivers e (ABILIFY) 2-18 by mouth ity of 2 mg tablet 19:58: daily. [facility] lisdexamfet 2020-0 Yes 50mg Take 50 mg Univers amine 2-18 by mouth ity of (VYVANSE) 19:58: every [place] 50 mg 26 morning. Medical capsule Branch ARIPiprazol 2020-0 Yes 2mg Take 2 mg U nivers e (ABILIFY) 2-18 by mouth ity of 2 mg tablet 19:58: daily. [facility] lisdexamfet 2020-0 Yes 50mg Take 50 mg Univers amine 2-18 by mouth ity of (VYVANSE) 19:58: every [place] 50 mg 26 morning. Medical capsule Branch ARIPiprazol 2020-0 Yes 2mg Take 2 mg U nivers e (ABILIFY) 2-18 by mouth ity of 2 mg tablet 19:58: daily. [facility] lisdexamfet 2020-0 Yes 50mg Take 50 mg Univers amine 2-18 by mouth ity of (VYVANSE) 19:58: every [place] 50 mg 26 morning. Medical capsule Branch ARIPiprazol 2020-0 Yes 2mg Take 2 mg U nivers e (ABILIFY) 2-18 by mouth ity of 2 mg tablet 19:58: daily. [address] Branch lisdexamfet 2020-0 Yes 50mg Take 50 mg Univers amine 2-18 by mouth ity of (VYVANSE) 19:58: every [place] 50 mg 26 morning. Medical capsule Branch ARIPiprazol 2020-0 Yes 2mg Take 2 mg U nivers e (ABILIFY) 2-18 by mouth ity of 2 mg tablet 19:58: daily. [address] Branch lisdexamfet 2020-0 Yes 50mg Take 50 mg Univers amine 2-18 by mouth ity of (VYVANSE) 19:58: every [place] 50 mg 26 morning. Medical capsule Branch ARIPiprazol 2020-0 Yes 2mg Take 2 mg U nivers e (ABILIFY) 2-18 by mouth ity of 2 mg tablet 19:58: daily. [address] Branch lisdexamfet 2020-0 Yes 50mg Take 50 mg Univers amine 2-18 by mouth ity of (VYVANSE) 19:58: every [place] 50 mg 26 morning. Medical capsule Branch ARIPiprazol 2020-0 Yes 2mg Take 2 mg U nivers e (ABILIFY) 2-18 by mouth ity of 2 mg tablet 19:58: daily. [address] lisdexamfet 2020-0 Yes 50mg Take 50 mg Univers amine 2-18 by mouth ity of (VYVANSE) 19:58: every [place] 50 mg 26 morning. Medical capsule Branch ARIPiprazol 2020-0 Yes 2mg Take 2 mg U nivers e (ABILIFY) 2-18 by mouth ity of 2 mg tablet 19:58: daily. [address] Branch lisdexamfet 2020-0 Yes 50mg Take [...] ity of 2 mg tablet 19:58: daily. [address] Branch lisdexamfet 2020-0 Yes 50mg Take 50 mg Univers amine 2-18 by mouth ity of (VYVANSE) 19:58: every [place] 50 mg 26 morning. Medical capsule Branch ARIPiprazol 2020-0 Yes 2mg Take 2 mg U nivers e (ABILIFY) 2-18 by mouth ity of 2 mg tablet 19:58: daily. [address] Branch lisdexamfet 2020-0 Yes 50mg Take 50 mg Univers amine 2-18 by mouth ity of (VYVANSE) 19:58: every [place] 50 mg 26 morning. Medical capsule Branch ARIPiprazol 2020-0 Yes 2mg Take 2 mg U nivers e (ABILIFY) 2-18 by mouth ity of 2 mg tablet 19:58: daily. [place] [address] Medical Branch lisdexamfet 2020-0 Yes 50mg Take 50 mg Univers amine 2-18 by mouth ity of (VYVANSE) 19:58: every [place] 50 mg 26 morning. Medical capsule Branch ARIPiprazol 2020-0 Yes 2mg Take 2 mg U nivers e (ABILIFY) 2-18 by mouth ity of 2 mg tablet 19:58: daily. [place] [address] Medical Branch lisdexamfet 2020-0 Yes 50mg Take 50 mg Univers amine 2-18 by mouth ity of (VYVANSE) 19:58: every [place] 50 mg 26 morning. Medical capsule Branch ARIPiprazol 2020-0 Yes 2mg Take 2 mg U nivers e (ABILIFY) 2-18 by mouth ity of 2 mg tablet 19:58: daily. [address] Branch lisdexamfet 2020-0 Yes 50mg Take 50 mg Univers amine 2-18 by mouth ity of (VYVANSE) 19:58: every [place] 50 mg 26 morning. Medical capsule Branch ARIPiprazol 2020-0 Yes 2mg Take 2 mg U nivers e (ABILIFY) 2-18 by mouth ity of 2 mg tablet 19:58: daily. [place] [address] Medical Branch lisdexamfet 2020-0 Yes 50mg Take 50 mg Univers amine 2-18 by mouth ity of (VYVANSE) 19:58: every [place] 50 mg 26 morning. Medical capsule Branch ARIPiprazol 2020-0 Yes 2mg Take 2 mg U nivers e (ABILIFY) 2-18 by mouth ity of 2 mg tablet 19:58: daily. [place] [address] Medical Branch lisdexamfet 2019-0 Yes 50mg Take 50 mg Univers amine 2-18 by mouth ity of (VYVANSE) 19:58: every [place] 50 mg 26 morning. Medical capsule Branch ARIPiprazol 2020-0 Yes 2mg Take 2 mg U nivers e (ABILIFY) 2-18 by mouth ity of 2 mg tablet 19:58: daily. [place] [address] Medical Branch lisdexamfet 2019-0 Yes 50mg Take 50 mg Univers amine 2-18 by mouth ity of (VYVANSE) 19:58: every [place] 50 mg 26 morning. Medical capsule Branch ARIPiprazol 2019-0 Yes 2mg Take 2 mg U nivers e (ABILIFY) 2-18 by mouth ity of 2 mg tablet 19:58: daily. [place] [address] Medical Branch lisdexamfet 2020-0 Yes 50mg Take 50 mg Univers amine 2-18 by mouth ity of (VYVANSE) 19:58: every [place] 50 mg 26 morning. Medical capsule Branch ARIPiprazol 2019-0 Yes 2mg Take 2 mg U nivers e (ABILIFY) 2-18 by mouth ity of 2 mg tablet 19:58: daily. [place] [address] Medical Branch lisdexamfet 2019-0 Yes 50mg Take 50 mg Univers amine 2-18 by mouth ity of (VYVANSE) 19:58: every [place] 50 mg 26 morning. Medical capsule Branch lisdexamfet 2015-0 Yes 50mg Take 50 mg Univers amine 5-05 by mouth ity of (VYVANSE) 14:18: every [place] 50 mg 37 morning. Medical capsule Branch ARIPiprazol Yes 2mg Take 2 mg U nivers e (ABILIFY) 5-05 by mouth ity of 2 mg tablet 14:18: [place]. [place] [facility] Branch Somatropin Yes [id number] 3mg inject 3 Univers (NORDITROPI 5-05 mg under ity of N FLEXPRO) 00:00: the skin [place] 15 mg/1.5 00 daily. Medical mL (10 Branch mg/mL) PnIj Somatropin Yes [id number] 3mg inject 3 Univers (NORDITROPI 5-05 mg under ity of N FLEXPRO) 00:00: the skin [place] 15 mg/1.5 00 daily. Medical mL (10 Branch mg/mL) PnIj Somatropin Yes [id number] 3mg inject 3 Univers (NORDITROPI 5-05 mg under ity of N FLEXPRO) 00:00: the skin [place] 15 mg/1.5 00 daily. Medical mL (10 Branch mg/mL) PnIj Somatropin Yes [id number] 3mg inject 3 Univers (NORDITROPI 5-05 mg under ity of N FLEXPRO) 00:00: the skin [place] 15 mg/1.5 00 daily. Medical mL (10 Branch mg/mL) PnIj Somatropin Yes [id number] 3mg inject 3 Univers (NORDITROPI 5-05 mg under ity of N FLEXPRO) 00:00: the skin [place] 15 mg/1.5 00 daily. Medical mL (10 Branch mg/mL) PnIj Somatropin Yes [id number] 3mg inject 3 Univers (NORDITROPI 5-05 mg under ity of N FLEXPRO) 00:00: the skin [place] 15 mg/1.5 00 daily. Medical mL (10 Branch mg/mL) PnIj Somatropin 2014- Yes [id number] 3mg inject 3 Univers (NORDITROPI 5-05 mg under ity of N FLEXPRO) 00:00: the skin [place] 15 mg/1.5 00 daily. Medical mL (10 Branch mg/mL) PnIj Somatropin Yes [id number] 3mg inject 3 Univers (NORDITROPI 5-05 mg under ity of N FLEXPRO) 00:00: the skin [place] 15 mg/1.5 00 daily. Medical mL (10 Branch mg/mL) PnIj Somatropin 2015-0 Yes [id number] 3mg inject 3 Univers (NORDITROPI 5-05 mg under ity of N FLEXPRO) 00:00: the skin [place] 15 mg/1.5 00 daily. Medical mL (10 Branch mg/mL) PnIj Somatropin 2014-0 Yes [id number] 3mg inject 3 Univers (NORDITROPI 5-05 mg under ity of N FLEXPRO) 00:00: the skin [place] 15 mg/1.5 00 daily. Medical mL (10 Branch mg/mL) PnIj Somatropin 2014-0 Yes [id number] 3mg inject 3 Univers (NORDITROPI 5-05 mg under ity of N FLEXPRO) 00:00: the skin [place] 15 mg/1.5 00 daily. Medical mL (10 Branch mg/mL) PnIj Somatropin 2014-0 Yes [id number] 3mg inject 3 Univers (NORDITROPI 5-05 mg under ity of N FLEXPRO) 00:00: the skin [place] 15 mg/1.5 00 daily. Medical mL (10 Branch mg/mL) PnIj Somatropin 2014-0 Yes [id number] 3mg inject 3 Univers (NORDITROPI 5-05 mg under ity of N FLEXPRO) 00:00: the skin [place] 15 mg/1.5 00 daily. Medical mL (10 Branch mg/mL) PnIj Somatropin 2014-0 Yes [id number] 3mg inject 3 Univers (NORDITROPI 5-05 mg under ity of N FLEXPRO) 00:00: the skin [place] 15 mg/1.5 00 daily. Medical mL (10 Branch mg/mL) PnIj Somatropin 2015-0 Yes [id number] 3mg inject 3 Univers (NORDITROPI 5-05 mg under ity of N FLEXPRO) 00:00: the skin [place] 15 mg/1.5 00 daily. Medical mL (10 Branch mg/mL) PnIj Somatropin 2015-0 Yes [id number] 3mg inject 3 Univers (NORDITROPI 5-05 mg under ity of N FLEXPRO) 00:00: the skin [place] 15 mg/1.5 00 daily. Medical mL (10 Branch mg/mL) PnIj Somatropin 2015-0 Yes [id number] 3mg inject 3 Univers (NORDITROPI 5-05 mg under ity of N FLEXPRO) 00:00: the skin [place] 15 mg/1.5 00 daily. Medical mL (10 Branch mg/mL) PnIj Somatropin Yes [id number] 3mg inject 3 Univers (NORDITROPI 5-05 mg under ity of N FLEXPRO) 00:00: the skin [place] 15 mg/1.5 00 daily. Medical mL (10 Branch mg/mL) PnIj Somatropin Yes [id number] 3mg inject 3 Univers (NORDITROPI 5-05 mg under ity of N FLEXPRO) 00:00: the skin [place] 15 mg/1.5 00 daily. Medical mL (10 Branch mg/mL) PnIj Somatropin Yes [id number] 3mg inject 3 Univers (NORDITROPI 5-05 mg under ity of N FLEXPRO) 00:00: the skin [place] 15 mg/1.5 00 daily. Medical mL (10 Branch mg/mL) PnIj Somatropin Yes [id number] 3mg inject 3 Univers (NORDITROPI 5-05 mg under ity of N FLEXPRO) 00:00: the skin [place] 15 mg/1.5 00 daily. Medical mL (10 Branch mg/mL) PnIj Somatropin 2020- No [id number] 3mg inject 3 Univers (NORDITROPI 5-05 04-12 [...] #3) 300-30 00 [facility] Univer s en-codeine 1-25 ity of (TYLENOL 00:00: [place] #3) 300-30 00 Medical mg tablet Branch acetamino 2013-08 Yes Univer s en-codeine 1-25 ity of (TYLENOL 00:00: [place] #3) 300-30 00 Medical mg tablet Branch acetamino 2013-08 Yes Univer s en-codeine 1-25 ity of (TYLENOL 00:00: [place] #3) 300-30 00 Medical mg tablet Branch [facility] 2013-08 Yes Univer s en-codeine 1-25 ity [...] 108 mm[Hg] Univer sity of pressure [facility] [place] Diastolic blood 2023-03-29 21:32:00 70 mm[Hg] Unive rsity of [facility] Heart rate 2023-03-29 21:32:00 73 /min [facility] Respiratory rate 2023-03-29 21:32:00 18 /min Univ ersity [facility] Body height 2023-03-29 21:32:00 152.4 cm [facility] Body weight 2023-03-29 21:32:00 69.4 kg [facility] BMI 2023-03-29 21:32:00 29.88 kg/m2 [facility] Systolic blood 2022-11-15 19:38:00 109 mm[Hg] Univer sity of pressure [facility] Diastolic blood 2022-11-15 19:38:00 70 mm[Hg] Unive rsity of pressure [facility] Heart rate 2022-11-15 19:38:00 87 /min [facility] Respiratory rate 2022-11-15 19:38:00 16 /min Univ ersity of [place] [facility] Body height 2022-11-15 19:38:00 152.4 cm Universi ty of [place] [facility] Body weight 2022-11-15 19:38:00 69.854 kg Universi ty [facility] [place] [facility] BMI 2022-11-15 19:38:00 30.08 kg/m2 Universi ty [facility] [place] [facility] Oxygen saturation in 2022-11-15 19:38:00 98 /min University of Arterial blood by [place] [employer] ashley Pulse oximetry Branch Systolic blood 2022-11-14 19:57:00 104 mm[Hg] Univer sity of pressure [place] [facility] Diastolic blood 2022-11-14 19:57:00 53 mm[Hg] Unive rsity of pressure [place] [facility] Heart rate 2022-11-14 19:57:00 84 /min Universi ty of [place] [facility] Respiratory rate 2022-11-14 19:57:00 18 /min Univ ersity of [place] [facility] Body height 2022-11-14 19:57:00 152.4 cm Universi ty [facility] [place] [facility] Body weight 2022-11-14 19:57:00 69.4 kg Universi ty of [place] [facility] BMI 2022-11-14 19:57:00 29.88 kg/m2 Universi ty [facility] [place] [facility] Systolic blood 2022-11-10 17:40:00 107 mm[Hg] Univer sity of pressure [place] [facility] Diastolic blood 2022-11-10 17:40:00 68 mm[Hg] Unive rsity of pressure [place] [facility] Heart rate 2022-11-10 17:40:00 77 /min Universi ty of [place] [facility] Respiratory rate 2022-11-10 17:40:00 16 /min Univ ersity of [place] [facility] Body height 2022-11-10 17:40:00 152.4 cm Universi ty [facility] [place] [facility] Body weight 2022-11-10 17:40:00 68.72 kg Universi ty [facility] [place] [facility] BMI 2022-11-10 17:40:00 29.59 kg/m2 Universi ty [facility] [place] [facility] Oxygen saturation in 2022-11-10 17:40:00 98 /min University of Arterial blood by [place] [employer] ashley Pulse oximetry Branch Systolic blood 2020-01-07 14:30:00 108 mm[Hg] Univer sity of pressure [place] [facility] Diastolic blood 2020-01-07 14:30:00 67 mm[Hg] Unive rsity of pressure [place] [facility] Heart rate 2020-01-07 14:30:00 66 /min Universi ty of [place] [facility] Body temperature 2020-01-07 14:30:00 36.56 [place] Univ ersity of [place] [facility] Respiratory rate 2020-01-07 14:30:00 16 /min Univ ersity of [place] [facility] Body height 2020-01-07 14:30:00 152.4 cm Universi ty of [place] [facility] Body weight 2020-01-07 14:30:00 68.55 kg Universi ty [facility] [place] [facility] BMI 2020-01-07 14:30:00 29.51 kg/m2 Universi ty of [facility] Branch Systolic blood 2019-11-28 20:21:00 112 mm[Hg] Univer sity of pressure [place] [facility] Diastolic blood 2019-11-28 20:21:00 77 mm[Hg] Unive rsity of pressure [place] [facility] Heart rate 2019-11-28 20:21:00 83 /min Universi ty [facility] [place] [facility] Body temperature 2019-11-28 20:21:00 36.56 [place] Univ ersity of [place] [facility] Respiratory rate 2019-11-28 20:21:00 16 /min Univ ersity of [place] [facility] Body height 2019-11-28 20:21:00 152.4 cm Universi ty [facility] [place] [facility] Body weight 2019-11-28 20:21:00 70.081 kg [facility]i ty [facility] [place] [facility] BMI 2019-11-28 20:21:00 30.17 kg/m2 [facility] [place] [facility] Systolic blood 2019-11-28 20:21:00 112 mm[Hg] Univer sity of pressure [place] [facility] Diastolic blood 2019-11-28 20:21:00 77 mm[Hg] Unive rsity of pressure [place] [facility] Heart rate 2019-11-28 20:21:00 83 /min Universi ty [facility] [place] [facility] Body temperature 2019-11-28 20:21:00 36.56 [place] Univ ersity of [place] [facility] Respiratory rate 2019-11-28 20:21:00 16 /min Univ ersity of [place] [facility] Body height 2019-11-28 20:21:00 152.4 cm Universi ty [facility] [place] [facility] Body weight 2019-11-28 20:21:00 70.081 kg [facility]i [facility] [place] [facility] BMI 2019-11-28 20:21:00 30.17 kg/m2 [facility] [place] [facility] Systolic blood 2019-11-24 12:57:00 117 mm[Hg] Univer sity of pressure [place] [facility] Diastolic blood 2019-11-24 12:57:00 59 mm[Hg] Unive rsity of pressure [place] [facility] Heart rate 2019-11-24 12:57:00 99 /min Universi ty [facility] [place] [facility] Body temperature 2019-11-24 12:57:00 36.44 [place] Univ ersity of [place] [facility] Respiratory rate 2019-11-24 12:57:00 18 /min Univ ersity of [place] [facility] Oxygen saturation in 2019-11-24 12:57:00 100 /min University of Arterial blood by [place] [employer] ashley Pulse oximetry Branch Body height 2019-11-22 17:18:00 152.4 cm Universi ty [facility] [place] [facility] Body weight 2019-11-22 17:18:00 72.122 kg Universi ty [facility] [place] [facility] BMI 2019-11-22 17:18:00 31.05 kg/m2 [facility]i ty [facility] [place] [facility] Systolic blood 2019-11-24 12:57:00 117 mm[Hg] Univer sity of pressure [place] [facility] Diastolic blood 2019-11-24 12:57:00 59 mm[Hg] Unive rsity of pressure [place] [facility] Heart rate 2019-11-24 12:57:00 99 /min Universi ty [facility] [place] [facility] Body temperature 2019-11-24 12:57:00 36.44 [place] Univ ersity of [place] [facility] Respiratory rate 2019-11-24 12:57:00 18 /min Univ ersity of [place] [facility] Oxygen saturation in 2019-11-24 12:57:00 100 /min [facility] of Arterial blood by [place] [facility]i ashley Pulse oximetry Branch Body height 2019-11-22 17:18:00 152.4 cm Universi ty [facility] [place] [facility] Body weight 2019-11-22 17:18:00 72.122 kg [facility]i [facility] [place] [facility] BMI 2019-11-22 17:18:00 31.05 kg/m2 [facility] [place] [facility] Systolic blood 2019-11-18 13:42:00 124 mm[Hg] Univer sity of pressure [place] [facility] Diastolic blood 2019-11-18 13:42:00 70 mm[Hg] Unive rsity of pressure [place] [facility] Heart rate 2019-11-18 13:42:00 79 /min Universi ty [facility] [place] [facility] Body temperature 2019-11-18 13:42:00 36.17 [place] Univ ersity of [place] [facility] Respiratory rate 2019-11-18 13:42:00 16 /min Univ ersity of [place] [facility] Body height 2019-11-18 13:42:00 152.4 cm [facility]i ty [facility] [place] [facility] Body weight 2019-11-18 13:42:00 73.057 kg [facility]i ty [facility] [place] [facility] BMI 2019-11-18 13:42:00 31.46 kg/m2 [facility]i [facility] [place] [facility] Systolic blood 2019-11-18 13:42:00 124 mm[Hg] Univer sity of pressure [place] [facility] Diastolic blood 2019-11-18 13:42:00 70 mm[Hg] Unive rsity of pressure [place] [facility] Heart rate 2019-11-18 13:42:00 79 /min Universi ty [facility] [place] [facility] Body temperature 2019-11-18 13:42:00 36.17 [place] Univ ersity of [place] [facility] Respiratory rate 2019-11-18 13:42:00 16 /min Univ ersity of [place] [facility] Body height 2019-11-18 13:42:00 152.4 cm [facility]i [facility] [place] [facility] Body weight 2019-11-18 13:42:00 73.057 kg [facility]i [facility] [place] [facility] BMI 2019-11-18 13:42:00 31.46 kg/m2 [facility] [place] [facility] Systolic blood 2019-11-11 13:57:00 118 mm[Hg] Univer sity of pressure [place] [facility] Diastolic blood 2019-11-11 13:57:00 69 mm[Hg] Unive rsity of pressure [place] [facility] Heart rate 2019-11-11 13:57:00 82 /min [facility]i ty [facility] [place] [facility] Body temperature 2019-11-11 13:57:00 36.33 [place] [facility] ersity of [place] [facility] Respiratory rate 2019-11-11 13:57:00 16 /min Univ ersity of [place] [facility] Body height 2019-11-11 13:57:00 152.4 cm [facility]i ty [facility] [place] [facility] Body weight 2019-11-11 13:57:00 71.697 kg [facility] [place] [facility] BMI 2019-11-11 13:57:00 30.87 kg/m2 [facility] [place] [facility] Systolic blood 2019-11-11 13:57:00 118 mm[Hg] Univer sity of pressure [place] [facility] Diastolic blood 2019-11-11 13:57:00 69 mm[Hg] Unive rsity of pressure [place] [facility] Heart rate 2019-11-11 13:57:00 82 /min [facility]i ty [facility] [place] [facility] Body temperature 2019-11-11 13:57:00 36.33 [place] [facility] ersity of [place] [facility] Respiratory rate 2019-11-11 13:57:00 16 /min Univ ersity of [place] [facility] Body height 2019-11-11 13:57:00 152.4 cm [facility]i [facility] [place] [facility] Body weight 2019-11-11 13:57:00 71.697 kg [facility] [place] [facility] BMI 2019-11-11 13:57:00 30.87 kg/m2 [facility] [place] [facility] Systolic blood 2019-10-27 15:32:00 114 mm[Hg] Univer sity of pressure [place] [facility] Diastolic blood 2019-10-27 15:32:00 66 mm[Hg] Unive rsity of pressure [facility] Heart rate 2019-10-27 15:32:00 83 /min [facility]i ty [facility] [place] [facility] Body temperature 2019-10-27 15:32:00 36.89 [place] [facility] ersity [facility] [place] [facility] Respiratory rate 2019-10-27 15:32:00 16 /min Univ ersity of [place] [facility] Body height 2019-10-27 15:32:00 152.4 cm [facility]i [facility] [place] [facility] Body weight 2019-10-27 15:32:00 70.308 kg [facility] [place] [facility] BMI 2019-10-27 15:32:00 30.27 kg/m2 [facility] [place] [facility] Systolic blood 2019-10-13 15:00:00 116 mm[Hg] Univer sity of pressure [facility] Diastolic blood 2019-10-13 15:00:00 67 mm[Hg] Unive rsity of pressure [facility] Heart rate 2019-10-13 15:00:00 84 /min [facility]i [facility] [place] [facility] Body temperature 2019-10-13 15:00:00 36.39 [place] [facility]ity [facility] [place] [facility] Respiratory rate 2019-10-13 15:00:00 16 /min Univ ersity [facility] [place] [facility] Body height 2019-10-13 15:00:00 152.4 cm [facility] [place] [facility] Body weight 2019-10-13 15:00:00 69.31 kg [facility] [place] [facility] BMI 2019-10-13 15:00:00 29.84 kg/m2 [facility] [place] [facility] Systolic blood 2019-10-02 15:13:00 128 mm[Hg] Univer sity of pressure [facility] Diastolic blood 2019-10-02 15:13:00 71 mm[Hg] Unive rsity of pressure [facility] Heart rate 2019-10-02 15:13:00 81 /min [facility]i [facility] Body temperature 2019-10-02 15:13:00 36.22 [place] [facility]ity [facility] [place] [facility] Respiratory rate 2019-10-02 15:13:00 16 /min Univ ersity [facility] [place] [facility] Body height 2019-10-02 15:13:00 152.4 cm [facility] Body weight 2019-10-02 15:13:00 67.586 kg [facility] [place] [facility] BMI 2019-10-02 15:13:00 29.10 kg/m2 [facility] [place] [facility] Systolic blood 2019-09-30 19:43:00 113 mm[Hg] Univer sity of pressure [facility] Diastolic blood 2019-09-30 19:43:00 67 mm[Hg] Unive rsity of pressure [facility] Heart rate 2019-09-30 19:43:00 91 /min [facility] [place] [facility] Body temperature 2019-09-30 19:43:00 36.22 [place] [facility] [place] [facility] Respiratory rate 2019-09-30 19:43:00 16 /min Univ ersity [facility] [place] [facility] Body height 2019-09-30 19:43:00 152.4 cm [facility] Body weight 2019-09-30 19:43:00 67.189 kg [facility] BMI 2019-09-30 19:43:00 28.93 kg/m2 [facility] [place] [facility] Procedures Procedure Date / Time Performing Clinician Source Performed INSURANCE CORRESPONDENCE 2022-11-21 05:01:00 Doctor Matthew [facility] POCT TEST 2022-11-15 00:00:00 Ruddy Colbert [facility] ASSIGNMENT OF BENEFITS 2022-11-10 17:19:34 Doctor Shawn [facility] 2020-01-07 14:33:00 Rashid Cha [facility] CONSENT FOR CONTRACEPTION 2020-01-07 05:01:00 Doctor Matthew [facility] CBC WITH DIFFERENTIAL 2019-11-23 09:13:00 Reynold Jones [facility] ARTERIAL CORD GAS 2019-11-22 23:50:00 [facility] VENOUS CORD GAS 2019-11-22 23:49:00 [facility] SECTION 2019-11-22 23:00:00 Fidelia Billings [facility] HEPATITIS B SURFACE 2019-11-22 20:42:00 [facility] ANTIGEN [facility] GALV ONLY - SYPHILIS 2019-11-22 20:42:00 [facility] IGG/IGM [facility] HB ABO GROUPING 2019-11-22 20:02:00 [facility] RHO (D) IMMUNE GLOBULIN 2019-11-22 20:02:00 Reynold Jones [facility] CORONAVIRUS COVID-19 2019-11-22 17:09:00 [facility] POCT URINALYSIS 2019-11-18 13:49:00 Carla Rajan [facility] POCT URINALYSIS 2019-11-11 14:00:00 Carla Rajan [facility] POCT URINALYSIS 2019-10-27 17:09:00 Carla Rajan [facility] AUTHORIZATION TO RELEASE 2019-10-09 06:01:00 Doctor Unassigned, [facility] TO [facility] TDAP VACCINE, >11 YRS, IM 2019-09-30 20:39:21 Carla Rajan [facility] FLU VACC ([phone]), 6+ 2019-09-30 20:22:55 Carla Rajan [facility] MONTHS, IM, QUAD [facility] POCT URINALYSIS W/O 2019-09-30 19:35:00 Carla Rajan [facility] [place] SPECIFIC GRAVITY [facility] POCT TEST 2019-09-30 19:34:00 Carla Rajan [facility] ASSIGNMENT OF BENEFITS 2019-09-30 19:11:56 Doctor Unassigned, [facility] [place] Encounters Start End Encounter Admission Attending Care Care Encounter Source Date/Time Date/Time Type Type Clinicians Facility Department ID 2021-06-09 [facility] [id number] Univers 17:44:35 [facility] 2023-06-08 2023-06-08 Outpatient R LINH HUSAIN [facility] U [facility] [id number] Univers 14:00:00 14:00:00 LINH HUSAIN [facility] 2023-06-08 2023-06-08 Outpatient R LINH HUSAIN [facility] U [facility] [id number] Univers 10:00:00 10:00:00 LINH HUSAIN [facility] 2023-05-17 2023-05-17 Outpatient R RUDDY [facility] B [id number] Univers 15:30:00 15:30:[address] [facility] 2023-04-30 2023-04-30 Outpatient Bernabe [facility] [id number] Univers 16:00:00 16:00:[address] [facility] 2023-04-27 2023-04-27 Outpatient Bernabe [facility] [id number] Univers 13:00:00 13:00:00 ERIN [facility] 2023-03-29 2023-03-29 Outpatient R RUDDY [facility] B [id number] Univers 16:30:00 16:37:[address] [facility] 2023-03-29 2023-03-29 Office Wesley MIJUAN SALEEM 1.2.840.114 [id number] Univers 16:30:00 16:37:41 Visit Ruddy BULLARD 350.1.13.10 it [place] [id number] [facility] [address] [place] 2023-02-07 2023-02-07 Outpatient R RUDDY [facility] B [id number] Univers 13:00:00 13:00:[address] [facility] 2022-12-13 2022-12-13 Outpatient [facility] [id number] [place] 16:42:16 16:42:16 [id number] Gee 2022-12-13 2022-12-13 Outpatient R [facility] [id number] Univers 15:15:00 15:15:00 ity of [facility] 2022-11-22 2022-11-22 Telephone Mauricio [facility] 1.2.840.114 [id number] Univers 00:00:00 00:00:00 Brittni BULLARD 350.1.13.10 it [place] [id number] [facility] [address] [place] 2022-11-21 2022-11-21 Orders Doctor MARTE 1.2.840.114 [id number] Univers 00:00:00 00:00:00 Only Unassigned, LUKE 350.1.13.10 ity of [facility] 4.2.7.2.686 Juan as [id number] [facility] [address] 2022-11-20 2022-11-20 Telephone [facility] 1.2.840.11 [id number] Univers 00:00:00 00:00:00 Ruddy BULLARD 350.1.13.10 it [place] [id number] [address] 2022-11-162022-11-16 Telephone Wesley [facility] 1.2.840.11 [id number] Univers 00:00:00 00:00:00 Ruddy BULLARD 350.1.13.10 [place] [id number] [address] 2022-11-15 2022-11-15 Outpatient R CRISTINARUDDY SALVADOR [facility] B [id number] Univers 14:30:00 15:04:[address] [facility] 2022-11-15 2022-11-15 Office Wesley [facility] 1.2.840.114 [id number] Univers 14:30:00 15:04:36 Visit Ruddy BULLARD 350.1.13.10 it [place] [id number] [address] 2022-11-14 2022-11-14 Outpatient R CRISTINARUDDY SALVADOR [facility] B [id number] Univers 15:00:00 15:16:[address] [facility] 2022-11-14 2022-11-[address] 1.2.840.114 [id number] Univers 15:00:00 15:16:26 Visit Ruddy BULLARD 350.1.13.10 it [place] [id number] [address] 2022-11-10 2022-11-10 Outpatient R RUDDY [facility] B [id number] Univers 13:00:00 13:04:[address] [facility] 2022-11-10 2022-11-10 Office Wesley [facility] 1.2.840.114 [id number] Univers 13:00:00 13:04:39 Visit Ruddy BULLARD 350.1.13.10 it [place] [id number] [address] 2022-11-10 2022-11-10 Orders Doctor ESTUARDO 1.2.840.114 [id number] Univers 00:00:00 00:00:00 Only Unassigned, LUKE 350.1.13.10 ity of [facility] 4.2.7.2.686 Juan as [id number] [address] 2020-11-02 2020-11-02 Patient Zander [facility] 1.2.840.114 [id number] Univers 00:00:00 00:00:00 Outreach Declan LAFOURCHE, [facility] 350.1.13.10 i ty of [facility] [place] [id number] Me dical [address] [place] [address] 2020-01-07 2020-01-07 [facility] 1.2.840.114 [id number] Univers 09:23:30 10:10:21 Visit [facility] R STOCK CRANE OPERATOR 350.1.13.10 ity of [facility] 4.2.7.2.686 Juan as MATERNAL [id number] Med ical & CHILD [address] [place] [address] 2020-01-07 2020-01-07 Outpatient R [facility] [id number] Univers 09:00:00 09:00:00 RASHID moore [facility] 2020-01-07 2020-01-07 Orders Doctor ESTUARDO 1.2.840.114 [id number] Univers 00:00:00 00:00:00 Only Unassigned, LUKE 350.1.13.[address] [place] [facility] 4.2.7.2.686 Juan as [id number] [address] 2019-12-16 2019-12-16 Outpatient R [facility] [id number] Univers 09:15:00 09:15:00 RASHID christie o f [facility] 2019-12-16 2019-12-16 [facility] 1.2.840.114 [id number] Univers 07:34:01 09:03:14 ne Visit [facility] R STOCK CRANE OPERATOR 350.1.13.10 ity of [facility] 4.2.7.2.686 Juan as MATERNAL [id number] Med ical & CHILD [address] [place] [address] 2019-12-16 2019-12-16 Hernan Cha, [facility] 1.2.840.114 [id number] 07:34:01 09:03:14 ne Visit Rashid Kidd STOCK CRANE OPERATOR 350.1.13.10 REGIONAL 4.2.7.2.686 MATERNAL [id number] & CHILD [address] [place] [address] 2019-11-28 2019-11-28 Nurse Visit, [facility] Nurse [facility] 1.2 .840.114 [id number] Univers 14:57:15 15:27:42 Visit Carla Rajan STOCK CRANE OPERATOR 350.1.13. 10 ity of [facility] 4.2.7.2.686 Juan as MATERNAL [id number] [facility] & CHILD [address] [place] [address] 2019-11-28 2019-11-28 Nurse Visit, [facility] 1.2.840.114 [id number] 14:57:15 15:27:42 [facility] STOCK CRANE OPERATOR 350.1.13.10 Nurse [facility] 4.2.7.2.686 MATERNAL [id number] & CHILD [address] [place] [address] 2019-11-28 2019-11-28 Outpatient R AKINSIPE, [facility] [id number] Univers 15:00:00 15:00:00 CARLA ity o [facility] 2019-11-25 2019-11-25 Outpatient R AKINSIPE, [facility] [id number] Univers 09:30:00 09:30:00 CARLA ity o [facility] 2019-11-25 2019-11-25 Outpatient R AKINSIPE, [facility] [id number] Univers 09:15:00 09:15:00 CARLA ity o [facility] 2019-11-22 2019-11-24 [facility] ESTUARDO [place] 1.2.585.505 [id number] Univers 11:49:00 12:16:00 Encounter Fidelia BUTLER 350.1.13.10 ity [facility] 4.2.7.2.686 Juan as [id number] [address] 2019-11-22 2019-11-24 [facility] ESTUARDO [place] 1.2.698.754 [id number] 11:49:00 12:16:00 Encounter Fidelia LUKE 350.1.13.10 [facility] 4.2.7.2.686 [id number] [facility] 2019-11-18 2019-11-18 Routine Akinsipe, [facility] 1.2.208.960 [id number] Univers 08:34:45 08:55:27 Carla C STOCK CRANE OPERATOR 350.1.13.10 ity of Visit REGIONAL 4.2.7.2.686 Juan as MATERNAL [id number] [facility] ical & CHILD [address] [place] [address] 2019-11-18 2019-11-18 Routine Akinsipe, [facility] 1.2.469.915 [id number] 08:34:45 08:55:27 Carla C STOCK CRANE OPERATOR 350.1.13.10 Visit REGIONAL 4.2.7.2.686 MATERNAL [id number] & CHILD [address] [place] [address] 2019-11-18 2019-11-18 Outpatient R WISAMPE, [facility] [id number] Univers 08:45:00 08:45:00 CARLA ity o f [facility] 2019-11-11 2019-11-11 Routine Akinsipe, [facility] 1.2.256.673 [id number] Univers 08:49:21 09:26:07 Carla C STOCK CRANE OPERATOR 350.1.13.10 ity of Visit REGIONAL 4.2.7.2.686 Juan as MATERNAL [id number] [facility] & CHILD [address] [place] [address] 2019-11-11 2019-11-11 Routine Akinsipe, [facility] 1.2.525.698 [id number] 08:49:21 09:26:07 Carla C STOCK CRANE OPERATOR 350.1.13.10 Visit REGIONAL 4.2.7.2.686 MATERNAL [id number] & CHILD [address] [place] [address] 2019-11-11 2019-11-11 Outpatient R AKINSIPE, [facility] [id number] Univers 09:00:00 09:00:00 CARLA ity o f [facility] 2019-10-27 2019-10-27 Routine Akinsipe, [facility] 1.2.364.332 [id number] Univers 09:42:46 12:09:33 Carla Elias STOCK CRANE OPERATOR 350.1.13.10 ity of Visit REGIONAL 4.2.7.2.686 Juan as MATERNAL [id number] [facility] & CHILD [address] [place] [address] 2019-10-27 2019-10-27 Outpatient R [facility] [id number] Univers 09:30:00 09:30:00 CARLA ity o f [facility] 2019-10-13 2019-10-13 Routine Faculty, Han Basilio [facility] 1.2 .840.114 [id number] Univers 08:47:13 11:29:01 Leandro Neff STOCK CRANE OPERATOR 350.1.13.10 ity of Visit [facility] 4.2.7.2.686 Juan as MATERNAL [id number] [facility] & CHILD [address] [place] [address] 2019-10-13 2019-10-13 Outpatient R [facility] [id number] Univers 09:00:00 09:00:00 ity of [facility] 2019-10-09 2019-10-09 Orders Doctor ESTUARDO 1.2.840.114 [id number] Univers 00:00:00 00:00:00 Only Unassigned, LUKE 350.1.13.[address] [place] [facility] 4.2.7.2.686 Juan as [id number] [address] 2019-10-02 2019-10-02 Nurse Visit, [facility] Nurse [facility] 1.2 .840.114 [id number] Univers 09:02:47 09:32:54 Visit Carla Rajan STOCK CRANE OPERATOR 350.1.13. 10 ity of [facility] 4.2.7.2.686 Juan as MATERNAL [id number] [facility] & CHILD [address] [place] [address] 2019-10-01 2019-10-01 [facility] 1.2 .840.114 [id number] Univers 09:01:49 10:01:49 Visit Carla Rajan STOCK CRANE OPERATOR 350.1.13. 10 ity of [facility] 4.2.7.2.686 Juan as MATERNAL [id number] Med ical & CHILD 369 [facility] 2019-10-01 2019-10-01 [facility] Lab, Ang-Rmchp [facility] 1.2.840. 114 [id number] Univers 08:36:33 08:41:17 Visit Carla Rajan STOCK CRANE OPERATOR 350.1.13. 10 ity of REGIONAL 4.2.7.2.686 Juan as MATERNAL [id number] [facility] ical & CHILD 107 [facility] 2019-10-01 2019-10-01 Abstract Satinder [facility] 1.2.840.114 [id number] Univers 00:00:00 00:00:00 Carla C STOCK CRANE OPERATOR 350.1.13.10 ity of REGIONAL 4.2.7.2.686 Juan as MATERNAL [id number] [facility] & CHILD 107 [facility] 2019-10-01 2019-10-01 Telephone Satinder [facility] 1.2.840.114 [id number] Univers 00:00:00 00:00:00 Carla Curt STOCK CRANE OPERATOR 350.1.13.10 ity of REGIONAL 4.2.7.2.686 Juan as MATERNAL [id number] [facility] & CHILD 107 [facility] 2019-09-30 2019-09-30 Initial Satinder [facility] 1.2.058.072 [id number] Univers 13:30:37 14:59:32 Carla C STOCK CRANE OPERATOR 350.1.13.10 ity of Visit [facility] 4.2.7.2.686 Juan as MATERNAL [id number] [facility] & CHILD [address] [place] [address] 2019-09-30 2019-09-30 Orders Doctor ESTUARDO 1.2.840.114 [id number] Univers 00:00:00 00:00:00 Only Unassigned, LUKE 350.1.13.[address] [place] [facility] 4.2.7.2.686 Juan as [id number] [address] Results Test Description Test Time Test Comments Results Result Comments Source POCT TEST 2022-11-15 19:42:00 Test Item Value Reference Range Interpretation Comme nts POCT PREG (test code = 1605) Negative On board controls acceptable with C Line (test code = 3574) Yes POCT PREG LOT # (test code = 3575) POCT PREG TEST DATE (test code = 3576) [facility] [id number] 19:42:00 Test Item Value Reference Range Interpretation Comments POCT PREG (test code = 1605) Negative On board controls acceptable with C Yes Line (test code = 3574) POCT PREG LOT # (test code = 3575) POCT PREG TEST DATE (test code = 3576) [facility] [id number] 14:33:00 Test Item Value Reference Range Interpretation Comments POCT PREG (test code = 1605) Negative On board controls acceptable with C Yes Line (test code = 3574) POCT PREG LOT # (test code = 3575) POCT PREG TEST DATE (test code = 3576) [facility] [id number] 14:33:00 Test Item Value Reference Range Interpretation Comments POCT PREG (test code = 1605) Negative On board controls acceptable with C Yes Line (test code = 3574) POCT PREG LOT # (test code = 3575) POCT PREG TEST DATE (test code = 3576) [facility] SYPHILIS [id number] 15:38:00 Test Item Value Reference Range Interpretation Comments Syphilis IgG/IgM (test Non-reactive Non-reactive code = 95155-8) JOSE RAFAEL (test code = JOSE RAFAEL) Non-reactive - No serologic evidence of T. pallidum infection. Cannot exclude incubating or early syphilis. Submit a second specimen in 2-4 weeks if syphilis is clinically suspected. Equivocal - Further testing to follow. Reactive - Further testing to follow. Lab Interpretation (test Normal code = 78042-0) [facility] WITH [id number] 09:57:00 Test Item Value Reference Range Interpretation Comments WBC (test code = See_Comment H [Automated 4869-2) message] The system which generated this result transmit gianna reference range : 4.50 - 13.50 10*3/?L. The reference range was not used to interpret this result as normal/abnormal . RBC (test code = See_Comment L [Automated 679-8) message] The system which generated this result [...] RDW-SD (test code = 44.9 fL 38.5-49 57234-1) RDW-CV (test code = 13.5 % 11.5-14 788-0) PLT (test code = See_Comment [Automated 777-3) message] The system which generated this result transmit gianna reference range : 135 - 361 10*3/ ?L. The reference range was not u sed to interpret th is result as normal/abnormal . MPV (test code = 11.5 fL 9.4-13.3 92684-9) NRBC/100 WBC (test See_Comment [Automat ed code = 2769054086) message] The system which generated this result transmit gianna reference range : 0.0 - 10.0 /100 WBCs. The reference range was not used to interpret this result as normal/abnormal . NRBC x10^3 (test code <0.01 See_Comment [Auto mated = 2322472770) message] The system which generated this result transmit gianna reference range : 10*3/?L. The reference range was not used to interpret this result as normal/abnormal . GRAN MAT (NEUT) % 82.3 % (test code = 770-8) IMM GRAN % (test code 1.00 % = 8696067944) LYMPH % (test code = 10.2 % 736-9) MONO % (test code = 5.6 % 5905-5) EOS % (test code = 0.5 % 713-8) BASO % (test code = 0.4 % 706-2) GRAN MAT x10^3(ANC) 14.09 10*3/uL 1.5-10.3 H (test code = 7791016275) IMM GRAN x10^3 (test 0.17 10*3/uL 0-0.06 H code = 1547813846) LYMPH x10^3 (test code 1.74 10*3/uL 0.7-7.4 = 731-0) MONO x10^3 (test code 0.96 10*3/uL 0-0.5 H = 742-7) EOS x10^3 (test code = 0.09 10*3/uL 0-0.4 711-2) BASO x10^3 (test code 0.06 10*3/uL 0-0.1 = 704-7) BANDS (test code = Increased A 5148403861) Lab Interpretation Abnormal (test code = 04035-5) [facility] IMMUNE [id number] 04:07:12 Test Item Value Reference Range Interpretation Comments RHIG CANDIDATE? No- see comment Patient i s not a (test code = candidate for R hIg- 5055) Patient is Rh Positive.Perfor med at [facility] Laboratory Services - [facility] Blood [address] [place] [address]Wwtl Free: [phone] A No. [id number] [facility] [id number] 23:57:00 Test Item Value Reference Range Interpretation Comments BASE EXCESS, CORD (test mEq/L code = 8648376967) AC PH, CORD (BEAKER) 7.18-7.38 (test code = 4717008057) PC02, CORD (test code = See_Comment H [Au tomated message] 0453114472) The system Estorian generated this result transmitted ref erence range: 32 - 66 mmHg. The reference r devin was not used to interpret this result as normal/abnor mal. PO2, CORD (test code = See_Comment [Aut omated message] 6076101579) The system Estorian generated this result transmitted ref erence range: 10 - 30 mmHg. The reference r devin was not used to interpret this result as normal/abnor mal. BICARBONATE, CORD (test See_Comment H [Au tomated message] code = 4925259101) The syste m which generated this result transmitted ref erence range: 17 - 27 mEq/L. The reference r devin was not used to interpret this result as normal/abnor mal. Lab Interpretation (test Abnormal code = 23927-4) [facility] [id number] 23:52:00 Test Item Value Reference Range Interpretation Comments VENOUS BASE EXCESS, CORD mEq/L (test code = 8002615353) VENOUS PH, CORD (test 7.25-7.45 code = 8591063108) VENOUS PC02, CORD (test See_Comment H [Au tomated message] code = 5122986359) The syste m which generated this result transmitted ref erence range: 27 - 49 mmHg. The reference r devin was not used to interpret this result as normal/abnor mal. VENOUS PO2, CORD (test See_Comment [Aut omated message] code = 1922660054) The syste m which generated this result transmitted ref erence range: 17 - 41 mmHg. The reference r devin was not used to interpret this result as normal/abnor mal. VENOUS BICARBONATE, CORD See_Comment [A utomated message] (test code = 5285435974) The system which generated this result transmitted ref erence range: 12 - 29 mEq/L. The reference r devin was not used to interpret this result as normal/abnor mal. Lab Interpretation (test Abnormal code = 92515-6) [facility] Hospital[facility]atitis B Surface [id number] 22:06:00 Test Item Value Reference Range Interpretation Comments HBsAg Semi-Quantitative (test code = Negative Negative 5195-3) [facility] and Screen - ONCE [id number] 21:39:44 Test Item Value Reference Range Interpretation Comments ABO & RH (test code O POSITIVE Performe d at [facility] = 20) Laboratory Serv [facility] Blood [facility] [address]Rcqp Free: [phone] A No. [id number] IAT (test code = Negative Performed a t [facility] 1185) Laboratory [facility] Blood [facility] [address]Cbyt Free: [phone] A No. [id number] [facility] Hospital[facility]ON[facility]IRUS COVID-19 [id number] 18:00:00 Test Item Value Reference Range Interpretation Comments SARS-CoV-2 (test code = Not Detected Not Detected 91046-1) JOSE RAFAEL (test code = JOSE RAFAEL) ID NOW COVID-19 Assay is an isothermal nucleic acid amplification test intended for the qualitative detection of nucleic acid from SARS-CoV-2 viral RNA in nasopharyngeal (ASSISTANT PLANT MANAGER) specimens. It is used under Emergency [...] indicated. Lab Interpretation Normal (test code = 53072-6) [facility] URINALYSIS W SPECIFIC [id number] 13:49:00 Test Item Value Reference Range Interpretation [...] POCT U APPEAR (test code = 3267) [facility] URINALYSIS W SPECIFIC [id number] 14:00:00 Test Item Value Reference Range Interpretation [...] POCT U APPEAR (test code = 3267) [facility] URINALYSIS W SPECIFIC [id number] 14:00:00 Test Item Value Reference Range Interpretation [...] POCT U APPEAR (test code = 3267) [facility] URINALYSIS W SPECIFIC [id number] 17:09:00 Test Item Value Reference Range Interpretation [...] POCT U APPEAR (test code = 3267) [facility] URINALYSIS W/O SPECIFIC [id number] 19:35:00 Test Item Value Reference Range Interpretation [...] code = 3257) Neg Negative - Negative [facility] URINALYSIS W/O SPECIFIC [id number] 19:35:00 Test Item Value Reference Range Interpretation [...] code = 3257) Neg Negative - Negative [facility] URINALYSIS W/O SPECIFIC [id number] 19:35:00 Test Item Value Reference Range Interpretation [...] code = 3257) Neg Negative - Negative [facility] URINALYSIS W/O SPECIFIC [id number] 19:35:00 Test Item Value Reference Range Interpretation [...] code = 3257) Neg Negative - Negative [facility] [id number] 19:34:00 Test Item Value Reference Range Interpretation Comments POCT PREG (test code = 1605) Positive On board controls acceptable with C Yes Line (test code = 3574) POCT PREG LOT # (test code = 3575) POCT PREG TEST DATE (test code = 3576) [facility] [id number] 19:34:00 Test Item Value Reference Range Interpretation Comments POCT PREG (test code = 1605) Positive On board controls acceptable with C Yes Line (test code = 3574) POCT PREG LOT # (test code = 3575) POCT PREG TEST DATE (test code = 3576) [facility] [id number] 19:34:00 Test Item Value Reference Range Interpretation Comments POCT PREG (test code = 1605) Positive On board controls acceptable with C Yes Line (test code = 3574) POCT PREG LOT # (test code = 3575) POCT PREG TEST DATE (test code = 3576) [facility] [id number] 19:34:00 Test Item Value Reference Range Interpretation Comments POCT PREG (test code = 1605) Positive On board controls acceptable with C Yes Line (test code = 3574) POCT PREG LOT # (test code = 3575) POCT PREG TEST DATE (test code = 3576) [facility]
--- NOTE | 2023-06-21 00:06 | ER ---
Nurse's Notes [facility] Name: Atiya Castellanos Age: 22 yrs Sex: Female : 2000 Arrival Date: 06/20/2023 Time: 23:32 Bed IW1 Private MD: Diagnosis: Urticaria, unspecified Presentation: 06/20 23:57 Chief complaint: Patient states: wide spread hives that started today. unknown allergic as6 reaction. Coronavirus screen: At this time, the client does not indicate any symptoms associated with coronavirus-19. Ebola Screen: No symptoms or risks identified at this time. Initial Sepsis Screen: Does the patient meet any 2 criteria? No. Patient's initial sepsis screen is negative. Does the patient have a suspected source of infection? No. Patient's initial sepsis screen is negative. Risk Assessment: Do you want to hurt yourself or someone else? Patient reports no desire to harm self or others. Onset of symptoms was June 20, 2023. 23:57 Method Of Arrival: Ambulatory as6 23:57 Acuity: CHRIS 4 as6 Triage Assessment: 06/21 00:00 General: Appears in no apparent distress. Behavior is calm, cooperative. Pain: Denies as6 pain. EENT: No deficits noted. No signs and/or symptoms were reported regarding the EENT system. Neuro: Level of Consciousness is awake, alert, obeys commands, Oriented to person, place, time, situation. Cardiovascular: Capillary refill < 3 seconds Patient's skin is warm and dry. Respiratory: Respiratory effort is even, unlabored, Respiratory pattern is regular, symmetrical. GI: No deficits noted. No signs and/or symptoms were reported involving the gastrointestinal system. : No deficits noted. No signs and/or symptoms were reported regarding the genitourinary system. Derm: Rash noted that is itchy, red, raised, urticaria, Reports burning, itching. Musculoskeletal: Circulation, motion, and sensation intact. CLERK: 00:00 Verified as6 Historical: - Allergies: 06/20 23:59 Milk/dairy products; as6 23:59 Soy; as6 - PMHx: 23:59 Bipolar disorder; as6 - PSHx: 23:59 section; eye; as6 - Immunization history:: Adult Immunizations up to date. - Social history:: Smoking status: Patient denies any tobacco usage or history of. Screenin/09 00:01 [facility] ED Fall Risk Assessment (Adult) Score/Fall Risk Level 0 - 2 = Low Risk. Abuse as6 screen: Denies threats or abuse. Denies injuries from another. Nutritional screening: No deficits noted. Tuberculosis screening: No symptoms or risk factors identified. Vital Signs: 06/20 23:57 BP 110 / 62; Pulse 67; Resp 18 S; Temp 98.6(TE); Pulse Ox 98% on R/A; Weight 63.5 kg as6 (R); Height 5 ft. 2 in. (R); Pain 0/10; 23:57 Body Mass Index 25.61 (63.50 kg, 157.48 cm) as6 23:57 Pain Scale: Adult as6 ED Course: 23:35 Patient arrived in ED. ag3 23:38 Lisandro Judd MD is Attending Physician. hira 23:41 Sandy Tang FNP-C is PHCP. kb 23:59 Triage completed. as6 06/21 00:00 Arm band placed on. as 00:01 Bed in low position. Call light in reach. Provided Education on: follow up. as 00:01 No provider procedures requiring assistance completed. Patient did not have IV access as6 during this emergency room visit. Administered Medications: 06/20 23:49 CANCELLED (Duplicate Order): mg IVP once; dilute with 10 mL 0.9% NaCl; kb give over 2 minutes 23:49 CANCELLED (Duplicate Order): [id number] mg PO once kb 23:50 CANCELLED (Other Intervention Used): ns 0.9% 1000 ml IV at 1 bolus Per protocol; 1000 kb mL bolus 23:50 CANCELLED (Other Intervention Used): hmxhihzqwftjvbv07 mg IVP once kb 23:50 CANCELLED (Duplicate Order): [id number] mg IVP once kb 06/21 00:03 Drug: Dexamethasone IM 10 mg IM once Route: IM; Site: right deltoid; :09 Follow up: Response: No adverse reaction :03 Drug: predniSONE PO 20 mg PO once Route: PO; 00:09 Follow up: Response: No adverse reaction : Drug: Famotidine PO 20 mg PO once Route: PO; 00:09 Follow up: Response: No adverse reaction as6 00:03 Drug: diphenhydrAMINE PO 25 mg PO once Route: PO; as6 00:09 Follow up: Response: No adverse reaction as6 Medication: 00:01 VIS not applicable for this client. as6 Outcome: 00:05 Discharge ordered by . nohemi 00:09 Discharged to home ambulatory, with significant other, as6 00:09 Condition: stable 00:09 Discharge instructions given to patient, Instructed on discharge instructions, follow up and referral plans. medication usage, Demonstrated understanding of instructions, follow-up care, medications, Prescriptions given X 2, 00:09 Patient left the ED. as6 Signatures: Sandy Tang, HOSPICE CASE MANAGER-C HOSPICE CASE MANAGER-Lisandro Ralph MD MD cha Gomez, [facility] [place] Cardenas, LEONORA RN as6
--- NOTE | 2023-06-21 00:06 | EDPHYS ---
Physician Documentation [facility] Name: Atiya Castellanos Age: 22 yrs Sex: Female : 2000 Arrival Date: 06/20/2023 Time: 23:32 Bed IW1 Private MD: ED Physician Lisandro Judd HPI: 06/21 00:05 This 22 yrs old Female presents to ER via Ambulatory with complaints of Allergic kb Reaction. 00:05 Patient is a 22-year-old female who developed hives to extremities 45 minutes prior to kb arrival. States she has a history of allergic reactions to unknown substances and normally carries an EpiPen but is out. Denies any respiratory distress.. 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 - Social history:: Smoking status: Patient denies any tobacco usage or history of. ROS: 06/21 00:04 Constitutional: Negative for fever, chills, and weight loss, kb Skin: Positive for rash, of the right arm, left arm, right leg and left leg, All other systems are negative, Exam: 00:04 Constitutional: This is a well developed, well nourished patient who is awake, alert, kb and in no acute distress. Head/Face: Normocephalic, atraumatic. ENT: Moist Mucous membranes Cardiovascular: Regular rate Respiratory: Respirations even and unlabored. No increased work of breathing. Talking in full sentences MS/ Extremity: Pulses equal, no cyanosis. Neurovascular intact. Full, normal range of motion. Neuro: Awake and alert, GCS 15, oriented to person, place, time, and situation. Moves all extremities. Normal gait. 00:04 Skin: rash a moderate rash is noted, consistent with urticaria, on the right arm, left arm, right leg and left leg, Vital Signs: 06/20 23:57 BP 110 / 62; Pulse 67; Resp 18 S; Temp 98.6(TE); Pulse Ox 98% on R/A; Weight 63.5 kg as6 (R); Height 5 ft. 2 in. (R); Pain 0/10; 23:57 Body Mass Index 25.61 (63.50 kg, 157.48 cm) as6 23:57 Pain Scale: Adult as6 MDM: 23:38 Patient medically screened. [facility] 06/21 00:04 Differential diagnosis: anaphylaxis, angioedema, urticaria. Data reviewed: vital signs, kb nurses notes. Counseling: I had a detailed discussion with the patient and/or guardian regarding the historical points, exam findings, and any diagnostic results supporting the discharge/admit diagnosis, the need for outpatient follow up, a family practitioner, to return to the emergency department if symptoms worsen or persist or if there are any questions or concerns that arise at home. Administered Medications: 06/20 23:49 CANCELLED (Duplicate Order): [id number] mg IVP once; dilute with 10 mL 0.9% NaCl; kb give over 2 minutes 23:49 CANCELLED (Duplicate Order): [id number] mg PO once kb 23:50 CANCELLED (Other Intervention Used): ns 0.9% 1000 ml IV at 1 bolus Per protocol; 1000 kb mL bolus 23:50 CANCELLED (Other Intervention Used): [id number] mg IVP once kb 23:50 CANCELLED (Duplicate Order): [id number] mg IVP once kb 06/21 00:03 Drug: Dexamethasone IM 10 mg IM once Route: IM; Site: right deltoid; as6 00:09 Follow up: Response: No adverse reaction as6 00:03 Drug: predniSONE PO 20 mg PO once Route: PO; as6 00:09 Follow up: Response: No adverse reaction as6 00:03 Drug: Famotidine PO 20 mg PO once Route: PO; as6 00:09 Follow up: Response: No adverse reaction as6 00:03 Drug: diphenhydrAMINE PO 25 mg PO once Route: PO; as6 00:09 Follow up: Response: No adverse reaction as6 Disposition Summary: 06/21/23 00:05 Discharge Ordered Notes: Location: Home Condition: Stable kb Diagnosis - Urticaria, unspecified kb Followup: kb - With: Emergency Department - When: As needed - Reason: Worsening of condition Followup: kb - With: Private Physician - When: 2 - 3 days - Reason: Recheck today's complaints, Continuance of care, Re-evaluation by your physician Discharge Instructions: - Discharge Summary Sheet kb - Hives, [id number] kb Forms: - Medication Reconciliation Form kb - Thank You Letter kb - Antibiotic Education kb - Prescription Opioid Use kb - Patient Portal Instructions kb - Leadership Thank You Letter kb Prescriptions: - Pepcid 20 mg Oral Tablet - take 1 tablet ORAL route every 12 hours for 5 days; 10 tablet; Refills: 0, kb Product Selection Permitted - Prednisone 20 mg Oral tablet - take 1 tablet ORAL route once daily for 3 days; 3 tablet; Refills: 0, Product kb Selection Permitted Signatures: Dispatcher [employer] EDSandy Lama, EVENTS SOLUTIONS CONSULTANT-C EVENTS SOLUTIONS CONSULTANT-Lisandro Ralph MD MD cha Slawson, Ashby, RN RN as6 Corrections: (The following items were deleted from the chart) 06/20 23:49 23:39 Famotidine IVP 40 mg IVP once; dilute with 10 mL 0.9% NaCl; give over 2 minutes kb ordered. [facility] 23:49 23:39 predniSONE PO 60 mg PO once ordered. [facility] kb 23:50 23:39 NS 0.9% IV 1000 ml IV at 1 bolus Per protocol; 1000 mL bolus ordered. [facility] kb 23:50 23:39 diphenhydrAMINE IVP 50 mg IVP once ordered. [facility] kb 23:50 23:39 MethylPrednisoLONE IVP 125 mg IVP once ordered. [facility] kb
[2023-06-21] MEDS ORDERED: predniSONE 20 MG TAB ONE (00:07)
[2023-06-21] MEDS ORDERED: dexAMETHasone 10 MG/ML VIAL ONE (00:07)
[2023-06-21] MEDS ORDERED: FAMOTIDINE 20 MG TAB ONE (00:07)
[2023-06-21] MEDS ORDERED: DIPHENHYDRAMINE 25 MG TAB/CAP ONE (00:07)
[2023-06-21 00:26] VITALS: BP 110/62; TEMP 98.6; O2SAT 98
== END 2023-06-21 00:09 | disposition home or self-care (01) ==
LOC: ER 23:32
DX: L50.9 Urticaria, unspecified (principal)
CPT/HCPCS: 96372; 99284

== ENCOUNTER 2024-01-16 19:17 | Emergency (ER) | payer OTHER ==
--- OUTSIDE RECORDS SUMMARY | 2024-01-16 19:21 | XMS REPORT | Continuity of Care Document ---
Author Name Unknown Address [address] [facility] [address] [place] [address] [facility] thconnect Address [address] [facility] [place] [address] Care Team Providers Care Planer Offbearer Name Role Phone ULYSSES PERERA Primary Care Physician UnavailOSCAR Little Attending Clinician LINH Anaya Attending Clinician LINH Cruz Attending Clinician RUDDY Donato Attending Clinician RUDDY Gamez Attending Clinician ERIN Helm Attending Clinician Unavailable Brittni Martínez RN Attending Clinician Unavailjoel canas Doctor Unassigned, [place] Attending Clinician U RASHID Valencia Attending Clinician Declan Hutchinson DO Attending Clinician [phone] Rashid Moses Attending Clinician + [phone] Visit, Qian Nurse Attending Clinician UnaCarla Snow Attending Clinician + CARLA RAJAN Attending Clinician Unavail Fidelia Majano MD Attending Clinician [phone] Faculty, Han Basilio Jimmy Attending Clinician Gaurav Neff MD, Leandro Barger Attending Clinician [phone] Ultrasound, Ayden Attending Clinician Olivera ble Lab, Cesarp Attending Clinician Elda Billings MD, Fidelia Admitting Clinician [phone] Payers Payer Name Policy Type Policy Number Effective Date Expirati on Date Source [facility] [id number] 00:00:00 [facility] [id number] 2023 00:00:00 [employer] [place] [id number] 2023 00:00:00 Problems Condition Name Condition Details Condition Category Status Onset Date Resolution Date Last Treatment Date Treating Clinician Comments Source Encounter for IUD insertion Encounter for IUD insertion Disease Active 4-04 00:00: 00 [facility] Counseling for control regarding intrauteri ne device (IUD) Counseling for control regarding intrauteri ne device (IUD) Disease Active 3-31 00:00: 00 [facility] Nexplanon removal Nexplanon removal Disease Active 3-31 00:00: 00 [facility] care and examinatio n immediatel y after delivery care and examinatio n immediatel y after delivery Disease Active 0 5-05 00:00: 00 [facility] BMI 30.0-30.9, adult BMI 30.0-30.9, adult Disease Active 0 4-11 00:00: 00 [facility] 37 weeks gestation of 37 weeks gestation of Disease Active 20200 4-11 00:00: 00 [facility] Chlamydia infection during Chlamydia infection during Disease Active 20200 2-19 00:00: 00 Overview: Formattin g of this note might be different from the original. Pending MICHAEL -neg [facility] Gonorrhea in Gonorrhea in Disease Active 20200 2-19 00:00: 00 Overview: Formattin g of this note might be different from the original. MICHAEL at next visit -neg [facility] Susceptibl e to varicella (non-immun e), currently Susceptibl e to varicella (non-immun e), currently Disease Active 2-19 00:00: 00 Overview: Formattin g of this note might be different from the original. Address pp [facility] Supervisio n of high-risk with insufficie nt care Supervisio n of high-risk with insufficie nt care Disease Active 218 00:00: 00 [facility] Over weight Over weight Disease Active 218 00:00: 00 [facility] Multiparit y Multiparit y Disease Active 218 00:00: 00 [facility] History of bipolar disorder History of bipolar disorder Disease Active 18 00:00: 00 Overview: Formattin g of this note might be different from the original. Not on meds x1 year [facility] History of depression History of depression Disease Active 18 00:00: 00 Overview: Formattin g of this note might be different from the original. Not on meds x1 year [facility] History of anxiety History of anxiety Disease Active 18 00:00: 00 Overview: Formattin g of this note might be different from the original. Not on meds x1 year [facility] History of delivery History of delivery Disease Active 18 00:00: 00 Overview: Formattin g of this note might be different from the original. Reports delivery at 31weeks ROR requested [facility] History of ADHD History of ADHD Disease Active 18 00:00: 00 [facility] Family history of autism Family history of autism Disease Active 218 00:00: 00 Overview: Formattin g of this note might be different from the original. Reports cousins [facility] History of polyhydram nios History of polyhydram nios Disease Active 218 00:00: 00 Overview: Formattin g of this note might be different from the original. Reports delivery at 31 weeks [facility] History of ADHD History of ADHD Disease Active 218 00:00: 00 [facility] BMI 29.0-29.9, adult BMI 29.0-29.9, adult Disease Active 09-30 00:00: 00 [facility] Allergies, Adverse Reactions, Alerts Allergy Name Allergy Type Status Severity Reaction(s) Onset Date Inactive Date Treating Clinician Comments Source Bee Sting / Venom Propensi ty to adverse reaction s Active Anaphylaxis 09-30 00:00: 00 [facility] BEE STING / VENOM DRUG INGREDI Active Anaphylaxis 09-30 00:00: 00 [facility] CASEIN DRUG INGREDI Active Other-Cmnt 09-23 00:00: 00 [facility] Casein Propensi ty to adverse reaction s Active Other - See comments 09-23 00:00: 00 [facility] Milk Propensi ty to adverse reaction s to drug Active Other - See comments 01-02 00:00: 00 [facility] Soy Propensi ty to adverse reaction s to drug Active Unknown - See comments 01-02 00:00: 00 [facility] MILK DRUG INGREDI Active Other-Cmnt 01-02 00:00: 00 [facility] SOY DRUG INGREDI Active Unknown-Cmnt 01-02 00:00: 00 [facility] Social History Social Habit Start Date Stop Date Quantity Comments Source ASSERTION 2019-03-20 00:00:00 [facility] Alcohol intake 2023-04-03 00:00:00 2023-04-03 00:00:00 Ex-drinker (finding) [facility] History of Social function 2022-11-14 00:00:00 2022-11-14 00:00:00 [facility] Exposure to SARS-CoV-2 (event) 2022-10-31 00:00:00 2022-11-10 12:18:00 Not sure [facility] Tobacco use and exposure 2022-11-10 00:00:00 2022-11-10 00:00:00 Smokeless tobacco non-user [facility] Education 2019-11-22 00:00:00 2019-11-22 00:00:00 11 [facility] Tobacco Comment 2013-06-10 00:00:00 2013-06-10 00:00:00 mom smokes outside [facility] Sex Assigned At 2000 00:00:00 2000 00:00:00 [facility] Smoking Status Start Date Stop Date Source Never smoked tobacco [facility] Medications Ordered Medication Name Filled Medication Name Start Date Stop Date Current Medication? Ordering Clinician Indication Dosage Frequency Signature (SIG) Comments Components Source doxycycline monohydrate 100 mg capsule 11-16 00:00: 00 11-24 04:59 :00 No [id number] 100mg Take 1 capsule by mouth in the morning and 1 capsule in the evening. Do all this for 7 days. [facility] levonorgest reL (MIRENA) IUD 1 Device 11-15 21:45: 00 11-15 20:46 :00 No [id number] 1{devic e} [facility] miSOPROStoL 200 mcg tablet 11-14 00:00: 00 11-15 00:00 :00 No [id number] Take 1 tablet, by mouth, at bedtime the night before IUD insertion procedure. Repeat dose at 0700 am on the morning of IUD insertion for cervical softening; not for abortive purposes. [facility] etonogestre l (NEXPLANON) implant 68 mg 01-06 16:00: 00 01-06 14:55 :00 No [id number] 68mg [facility] lisdexamfet amine (VYVANSE) 50 mg capsule 11-22 12:42: 10 11-22 00:00 :00 No 50mg Take 50 mg by mouth every morning. [facility] ARIPiprazol e (ABILIFY) 2 mg tablet 11-22 12:42: 10 11-22 00:00 :00 No 2mg Take 2 mg by mouth daily. [facility] human papillomav vac,9-migel(P F) (GARDASIL-9 ) syringe 0.5 mL 11-22 12:26: 12 Yes .5mL 0.5 mL, Intramuscu lar, ONCE-PRIOR TO DISCHARGE, 1 dose, Starting 11/23/19 at 0726, Until Discontinu ed, Routine, Give vaccine prior to discharge [facility] varicella virus vaccine live (VARIVAX (PF)) injection 0.5 mL 11-22 12:26: 12 11-23 16:35 :00 No .5mL 0.5 mL, Subcutaneo us, ONCE-PRIOR TO DISCHARGE, 1 dose, Starting 11/23/19 at 0726, Until Discontinu ed, Routine, Give vaccine prior to discharge [facility] rho(D) immune globulin (RHOGAM) syringe 300 mcg 11-22 03:56: 35 Yes 300ug 300 mcg, Intramuscu lar, ONCE, For 1 dose, Conditiona l, Routine [facility] simethicone (GAS RELIEF (SIMETHICON E)) chewable tablet 160 mg 11-22 03:56: 28 Yes 160mg 160 mg, Oral, PC+HSPRN, Starting 11/22/19 at 2256, Until Discontinu ed, Routine, Gas [facility] HYDROcodone -acetaminop hen (NORCO 5) 5-325 mg tablet 2 tablet 11-22 03:56: 27 Yes 2{tbl} 2 tablet, Oral, Q6HPRN, Starting 11/22/19 at 2256, Until Discontinu ed, Routine, Pain (scale 7-10), If uncontroll ed by Ibuprofen [facility] HYDROcodone -acetaminop hen (NORCO 5) 5-325 mg tablet 1 tablet 11-22 03:56: 27 Yes 1{tbl} 1 tablet, Oral, Q6HPRN, Starting 11/22/19 at 2256, Until Discontinu ed, Routine, Pain (scale 4-6), If uncontroll ed by Ibuprofen [facility] ibuprofen (IBU) tablet 600 mg 11-22 03:56: 27 Yes 600mg 600 mg, Oral, Q6HPRN, Starting 11/22/19 at 2256, Until Discontinu ed, Routine, Pain (scale 1-3) [facility] diphenhydrA MINE-0.9 % sod.chlr (BENADRYL) 25 mg/50 mL piggyback 25 mg 11-22 03:56: 27 Yes 25mg 25 mg, IV Piggyback, Administer over 30 Minutes, Q6HPRN, 1 dose, Starting 11/22/19 at 2256, Until Discontinu ed, Routine, Itching [facility] diphenhydrA MINE (BENADRYL) tablet 25 mg 11-22 03:56: 27 Yes 25mg 25 mg, Oral, Q6HPRN, Starting 11/22/19 at 225, Until Discontinu ed, Routine, Sleep, Itching [facility] ondansetron (ZOFRAN (PF)) injection 4 mg 11-22 03:56: 27 Yes 4mg 4 mg, Slow IV Push, Q8HPRN, Starting 11/22/19 at 225, Until Discontinu ed, Routine, Nausea and Vomiting (N/V) [facility] bisacodyL (DULCOLAX) suppository 10 mg 11-22 03:56: 27 Yes 10mg 10 mg, Rectal, QDAILYPRN, Starting 11/22/19 at 2256, Until Discontinu ed, Routine, Constipati on [facility] docusate calcium (SURFAK) capsule 240 mg 11-22 03:56: 27 Yes 240mg 240 mg, Oral, QDAILYPRN, Starting 11/22/19 at 2256, Until Discontinu ed, Routine, Constipati on [facility] magnesium hydroxide (MILK OF MAGNESIA) 400 mg/5 mL suspension 30 mL 11-22 03:56: 27 Yes 30mL 30 mL, Oral, QDAILYPRN, Starting 11/22/19 at 2256, Until Discontinu ed, Routine, Constipati on [facility] naloxone (NARCAN) injection 0.4 mg 11-22 00:13: 34 11-24 00:12 :34 No .4mg 0.4 mg, Slow IV Push, PRN - SEE INSTRUCTIO NS, Starting 11/22/19 at 1913, Until 11/24/19 at 1912, Routine, Analgesia Recovery [facility] vitamin w/FA tablet 11-22 00:00: 00 Yes [id number] 1{tbl} Take 1 tablet by mouth daily. [facility] docusate calcium 240 mg capsule 11-22 00:00: 00 Yes [id number] 240mg Take 1 capsule by mouth once daily as needed for Constipati on. [facility] ferrous sulfate 325 mg (65 mg iron) tablet 11-22 00:00: 00 Yes [id number] 325mg Take 1 tablet by mouth 2 (two) times daily. [facility] ibuprofen 600 mg tablet 11-22 00:00: 00 Yes [id number] 600mg Take 1 tablet by mouth every 6 (six) hours as needed (Pain). Take with food or milk. [facility] vitamin w/FA tablet 11-22 00:00: 00 Yes [id number] 1{tbl} Take 1 tablet by mouth daily. [facility] HYDROcodone -acetaminop hen 5-325 mg tablet 11-22 00:00: 00 11-30 04:59 :00 No [id number] 1{tbl} Take 1 tablet by mouth every 6 (six) hours as needed (for pain) for up to 7 days. Do not exceed 3 grams of acetaminop hen in 24 hours. [facility] lactated ringers IV infusion 1,000 mL 11-21 23:00: 00 11-22 03:56 :36 No 1000mL at 125 mL/hr, 1,000 mL, IV Infusion, CONTINUOUS , Starting 11/22/19 at 1800, Until 11/22/19 at 2256, Routine [facility] sodium citrate-cit ramila acid (BICITRA) 500-334 mg/5 mL solution 30 mL 11-21 22:47: 25 11-21 22:57 :00 No 30mL 30 mL, Oral, PRE-PROCED URE ONCE, 1 dose, Starting 11/22/19 at 1747, Until Discontinu ed, Routine, Surgery [facility] ceFAZolin in dextrose (iso-os) (ANCEF) 2 gram/100 mL Piggyback 2 g 11-21 22:47: 25 11-21 22:57 :00 No 2000mg 2 g (2,000 mg), IV Piggyback, O.R. HOLDING ONCE, 1 dose, Starting 11/22/19 at 1747, Until Discontinu ed, 100 mL
Reas on for Anti-Infec tive: Surgical Prophylaxi s
Surgi ashley Prophylaxi s: DISPLAY DEPARTMENT MANAGER
Duration of therapy: within 24 hours of surgery [facility] lactated ringers IV infusion 500 mL 11-21 20:00: 00 11-21 20:40 :00 No 500mL at 999 mL/hr, 500 mL, IV Infusion, ONCE, 1 dose, 11/22/19 at 1500, Routine [facility] D5W-LR IV infusion 1,000 mL 11-21 19:00: 00 11-22 03:56 :36 No 1000mL at 125 mL/hr, IV Infusion, CONTINUOUS , Starting 11/22/19 at 1400, Until 11/22/19 at 2256, Routine [facility] sodium citrate-cit ramila acid (BICITRA) 500-334 mg/5 mL solution 30 mL 11-21 18:50: 33 11-21 21:27 :00 No 30mL 30 mL, Oral, PRE-PROCED URE ONCE, 1 dose, Starting 11/22/19 at 1350, Until 11/22/19 at 1627, Routine, Surgery/Pr ocedure [facility] LR 1000 mL + oxytocin 20 units IV Solution 11-21 18:49: 40 11-22 03:56 :36 No 2mU/min 2-40 zhanna-unit s/min (6-120 mL/hr), IV Infusion, TITRATE, Oxytocin Induction / Augmentati on [...] faculty approval.& nbsp;&nbsp ;Max 40 zhanna-unit s/min.
[facility] Vit-Iron Fumarate-FA (RIGHT STEP VITAMINS) 27 mg iron- 0.8 mg per tablet 10-12 00:00: 11-22 00:00 :00 No 1{tbl} Take 1 tablet by mouth daily. [facility] ferrous sulfate 325 mg (65 mg iron) tablet 10-12 00:00: 11-22 00:00 :00 No 325mg Take 1 tablet by mouth daily. [facility] cefTRIAXone (ROCEPHIN) injection 250 mg 10-02 17:00: 10-02 15:52 :00 No 250mg [facility] azithromyci n 500 mg tablet 10-01 00:00: 10-02 05:59 :00 No [id number] 1000mg Take 2 tablets by mouth once now for 1 dose. [facility] ARIPiprazol e (ABILIFY) 2 mg tablet 09-30 19:58: 26 Yes 2mg Take 2 mg by mouth daily. [facility] lisdexamfet amine (VYVANSE) 50 mg capsule 09-30 19:58: 26 Yes 50mg Take 50 mg by mouth every morning. [facility] lisdexamfet amine (VYVANSE) 50 mg capsule 12-15 14:18: 37 Yes 50mg Take 50 mg by mouth every morning. [facility] ARIPiprazol e (ABILIFY) 2 mg tablet 12-15 14:18: 37 Yes 2mg Take 2 mg by mouth daily. [facility] Somatropin (NORDITROPI N FLEXPRO) 15 mg/1.5 mL (10 mg/mL) PnIj 12-15 00:00: 00 11-22 00:00 :00 No [id number] 3mg inject 3 mg under the skin daily. [facility] acetaminoph en-codeine (TYLENOL #3) 300-30 mg tablet 2013-09-06 00:00: 00 11-22 00:00 :00 No [facility] Vital Signs Vital Name Observation Time Observation Value Comments S ource Systolic blood pressure 2023-03-29 21:32:00 108 mm[Hg] [facility] Diastolic blood pressure 2023-03-29 21:32:00 70 mm[Hg] [facility] Heart rate 2023-03-29 21:32:00 73 /min [facility] Respiratory rate 2023-03-29 21:32:00 18 /min [facility] Body height 2023-03-29 21:32:00 152.4 cm [facility] Body weight 2023-03-29 21:32:00 69.4 kg [facility] BMI 2023-03-29 21:32:00 29.88 kg/m2 [facility] Systolic blood pressure 2022-11-15 19:38:00 109 mm[Hg] [facility] Diastolic blood pressure 2022-11-15 19:38:00 70 mm[Hg] [facility] Heart rate 2022-11-15 19:38:00 87 /min [facility] Respiratory rate 2022-11-15 19:38:00 16 /min [facility] Body height 2022-11-15 19:38:00 152.4 cm [facility] Body weight 2022-11-15 19:38:00 69.854 kg [facility] BMI 2022-11-15 19:38:00 30.08 kg/m2 [facility] Oxygen saturation in Arterial blood by Pulse oximetry 2022-11-15 19:38:00 98 /min [facility] Systolic blood pressure 2022-11-14 19:57:00 104 mm[Hg] [facility] Diastolic blood pressure 2022-11-14 19:57:00 53 mm[Hg] [facility] Heart rate 2022-11-14 19:57:00 84 /min [facility] Respiratory rate 2022-11-14 19:57:00 18 /min [facility] Body height 2022-11-14 19:57:00 152.4 cm [facility] Body weight 2022-11-14 19:57:00 69.4 kg [facility] BMI 2022-11-14 19:57:00 29.88 kg/m2 [facility] Systolic blood pressure 2022-11-10 17:40:00 107 mm[Hg] [facility] Diastolic blood pressure 2022-11-10 17:40:00 68 mm[Hg] [facility] Heart rate 2022-11-10 17:40:00 77 /min [facility] Respiratory rate 2022-11-10 17:40:00 16 /min [facility] Body height 2022-11-10 17:40:00 152.4 cm [facility] Body weight 2022-11-10 17:40:00 68.72 kg [facility] BMI 2022-11-10 17:40:00 29.59 kg/m2 [facility] Oxygen saturation in Arterial blood by Pulse oximetry 2022-11-10 17:40:00 98 /min [facility] Systolic blood pressure 2020-01-07 14:30:00 108 mm[Hg] [facility] Diastolic blood pressure 2020-01-07 14:30:00 67 mm[Hg] [facility] Heart rate 2020-01-07 14:30:00 66 /min [facility] Body temperature 2020-01-07 14:30:00 36.56 [place] [facility] Respiratory rate 2020-01-07 14:30:00 16 /min [facility] Body height 2020-01-07 14:30:00 152.4 cm [facility] Body weight 2020-01-07 14:30:00 68.55 kg [facility] BMI 2020-01-07 14:30:00 29.51 kg/m2 [facility] Systolic blood pressure 2019-11-28 20:21:00 112 mm[Hg] [facility] Diastolic blood pressure 2019-11-28 20:21:00 77 mm[Hg] [facility] Heart rate 2019-11-28 20:21:00 83 /min [facility] Body temperature 2019-11-28 20:21:00 36.56 [place] [facility] Respiratory rate 2019-11-28 20:21:00 16 /min [facility] Body height 2019-11-28 20:21:00 152.4 cm [facility] Body weight 2019-11-28 20:21:00 70.081 kg [facility] BMI 2019-11-28 20:21:00 30.17 kg/m2 [facility] Systolic blood pressure 2019-11-28 20:21:00 112 mm[Hg] [facility] Diastolic blood pressure 2019-11-28 20:21:00 77 mm[Hg] [facility] Heart rate 2019-11-28 20:21:00 83 /min [facility] Body temperature 2019-11-28 20:21:00 36.56 [place] [facility] Respiratory rate 2019-11-28 20:21:00 16 /min [facility] Body height 2019-11-28 20:21:00 152.4 cm [facility] Body weight 2019-11-28 20:21:00 70.081 kg [facility] BMI 2019-11-28 20:21:00 30.17 kg/m2 [facility] Systolic blood pressure 2019-11-24 12:57:00 117 mm[Hg] [facility] Diastolic blood pressure 2019-11-24 12:57:00 59 mm[Hg] [facility] Heart rate 2019-11-24 12:57:00 99 /min [facility] Body temperature 2019-11-24 12:57:00 36.44 [place] [facility] Respiratory rate 2019-11-24 12:57:00 18 /min [facility] Oxygen saturation in Arterial blood by Pulse oximetry 2019-11-24 12:57:00 100 /min [facility] Body height 2019-11-22 17:18:00 152.4 cm [facility] Body weight 2019-11-22 17:18:00 72.122 kg [facility] BMI 2019-11-22 17:18:00 31.05 kg/m2 [facility] Systolic blood pressure 2019-11-24 12:57:00 117 mm[Hg] [facility] Diastolic blood pressure 2019-11-24 12:57:00 59 mm[Hg] [facility] Heart rate 2019-11-24 12:57:00 99 /min [facility] Body temperature 2019-11-24 12:57:00 36.44 [place] [facility] Respiratory rate 2019-11-24 12:57:00 18 /min [facility] Oxygen saturation in Arterial blood by Pulse oximetry 2019-11-24 12:57:00 100 /min [facility] Body height 2019-11-22 17:18:00 152.4 cm [facility] Body weight 2019-11-22 17:18:00 72.122 kg [facility] BMI 2019-11-22 17:18:00 31.05 kg/m2 [facility] Systolic blood pressure 2019-11-18 13:42:00 124 mm[Hg] [facility] Diastolic blood pressure 2019-11-18 13:42:00 70 mm[Hg] [facility] Heart rate 2019-11-18 13:42:00 79 [facility] Body [facility] 2019-11-18 13:42:00 36.17 [place] [facility] Respiratory rate 2019-11-18 13:42:00 16 /min [facility] Body height 2019-11-18 13:42:00 152.4 cm [facility] Body weight 2019-11-18 13:42:00 73.057 kg [facility] BMI 2019-11-18 13:42:00 31.46 kg/m2 [facility] Systolic blood pressure 2019-11-18 13:42:00 124 mm[Hg] [facility] Diastolic blood pressure 2019-11-18 13:42:00 70 mm[Hg] [facility] Heart rate 2019-11-18 13:42:00 79 /min [facility] Body temperature 2019-11-18 13:42:00 36.17 [place] [facility] Respiratory rate 2019-11-18 13:42:00 16 /min [facility] Body height 2019-11-18 13:42:00 [facility] Body weight 2019-11-18 13:42:00 73.057 kg [facility] BMI 2019-11-18 13:42:00 31.46 kg/m2 [facility] Systolic blood pressure 2019-11-11 13:57:00 118 mm[Hg] [facility] Diastolic blood pressure 2019-11-11 13:57:00 69 mm[Hg] [facility] Heart rate 2019-11-11 13:57:00 82 /[facility] Body temperature 2019-11-11 13:57:00 36.33 [place] [facility] Respiratory rate 2019-11-11 13:57:00 16 /min [facility] Body height 2019-11-11 13:57:00 152.4 cm [facility] Body weight 2019-11-11 13:57:00 71.697 kg [facility] BMI 2019-11-11 13:57:00 30.87 kg/m2 [facility] Systolic blood pressure 2019-11-11 13:57:00 118 mm[Hg] [facility] Diastolic blood pressure 2019-11-11 13:57:00 69 mm[Hg] [facility] Heart rate 2019-11-11 13:57:00 82 /min [facility] Body temperature 2019-11-11 13:57:00 36.33 [facility] Respiratory rate 2019-11-11 13:57:00 16 /min [facility] Body height 2019-11-11 13:57:00 152.4 cm [facility] 2019-11-11 13:57:00 71.697 [facility] BMI 2019-11-11 13:57:00 30.87 kg/m2 Univ [facility] Systolic blood pressure 2019-10-27 15:32:00 114 mm[Hg] [facility] Diastolic blood pressure 2019-10-27 15:32:00 66 mm[Hg] [facility] Heart rate 2019-10-27 15:32:00 83 /[facility] Body temperature 2019-10-27 15:32:00 36.89 [facility] Respiratory rate 2019-10-27 15:32:00 16 /min [facility] Body height 2019-10-27 15:32:00 152.4 cm Univ [facility] Body weight 2019-10-27 15:32:00 70.308 kg [facility] BMI 2019-10-27 15:32:00 30.27 kg/m2 Univ [facility] Systolic blood pressure 2019-10-13 15:00:00 116 mm[Hg] [facility] Diastolic blood pressure 2019-10-13 15:00:00 67 mm[Hg] [facility] Heart rate 2019-10-13 15:00:00 84 /[facility] temperature 2019-10-13 15:00:00 36.39 [place] Respiratory rate 2019-10-13 15:00:00 16 /min [facility] Body height 2019-10-13 15:00:00 152.4 cm Univ [facility] Body weight 2019-10-13 15:00:00 69.31 kg Univ [facility] BMI 2019-10-13 15:00:00 29.84 kg/m2 Univ [facility] Systolic blood pressure 2019-10-02 15:13:00 128 mm[Hg] [facility] Diastolic blood pressure 2019-10-02 15:13:00 71 mm[Hg] [facility] Heart rate 2019-10-02 15:13:00 81 /min Unive [facility] Body temperature 2019-10-02 15:13:00 36.22 [facility] Respiratory rate 2019-10-02 15:13:00 16 /min [facility] Body height 2019-10-02 15:13:00 152.4 cm [facility] Body weight 2019-10-02 15:13:00 67.586 kg [facility] BMI 2019-10-02 15:13:00 29.10 kg/m2 [facility] Systolic blood pressure 2019-09-30 19:43:00 113 mm[Hg] [place] [facility] Diastolic blood pressure 2019-09-30 19:43:00 67 mm[Hg] [facility] Heart rate 2019-09-30 19:43:00 91 /min [facility] Body temperature 2019-09-30 19:43:00 36.22 [place] Respiratory rate 2019-09-30 19:43:00 16 /min [facility] Body height 2019-09-30 19:43:00 152.4 cm [facility] Body weight 2019-09-30 19:43:00 67.189 kg [facility] BMI 2019-09-30 19:43:00 28.93 kg/m2 [facility] Procedures Procedure Date / Time Performed Performing Clinician Source INSURANCE CORRESPONDENCE 2022-11-21 05:01:00 Doc tor Unassigned, [place] [facility] POCT TEST 2022-11-15 00:00:00 Tj Colbert [facility] ASSIGNMENT OF BENEFITS 2022-11-10 17:19:34 Docto r Unassigned, [place] [facility] POCT TEST 2020-01-07 14:33:00 Itz Tovar [facility] CONSENT FOR CONTRACEPTION 2020-01-07 05:01:00 Do ctor Unassigned, [place] [facility] CBC WITH DIFFERENTIAL 2019-11-23 09:13:00 Reynold Jones [facility] ARTERIAL CORD GAS 2019-11-22 23:50:00 [facility]ORD [facility] 2019-11-22 23:49:00 Juanis Goff [facility] SECTION 2019-11-22 23:00:00 Fidelia Billings [facility] HEPATITIS B SURFACE ANTIGEN 2019-11-22 20:42:00 GoffJuanis [facility] GALV ONLY - SYPHILIS IGG/IGM 2019-11-22 20:42:00 GoffVivianJuanis [facility] HB ABO GROUPING 2019-11-22 20:02:00 Juanis Goff Meghan [facility] RHO (D) IMMUNE GLOBULIN 2019-11-22 20:02:00 Gael Jones [facility] CORONAVIRUS COVID-19 TESTING 2019-11-22 17:09:00 Fidelia Billings [facility] POCT URINALYSIS 2019-11-18 13:49:00 Carla Rajan [facility] POCT URINALYSIS 2019-11-11 14:00:00 Carla Rajan [facility] POCT URINALYSIS 2019-10-27 17:09:00 Carla Rajan [facility] AUTHORIZATION TO RELEASE PHI TO [facility] 2019-10-09 06:01:00 Doctor Unassigned, [place] [facility] TDAP VACCINE, >11 YRS, IM 2019-09-30 20:39:21 Carla Rajan [facility] FLU VACC ([phone]), 6+ MONTHS, IM, QUAD 2019-09-30 20:22:55 Carla Rajan [facility] POCT URINALYSIS W/O SPECIFIC GRAVITY 2019-09-30 19:35:00 Carla Rajan [facility] POCT TEST 2019-09-30 19:34:00 Don Rajan [facility] ASSIGNMENT OF BENEFITS 2019-09-30 19:11:56 Docto r Unassigned, [place] [facility] Encounters Start Date/Time End Date/Time Encounter Type Admission Type Attending Clinicians Care Facility Care Department Encounter ID Source 2021-06-09 17:44:35 Outpatient [facility] [id number] [facility] 2023-10-05 09:00:00 2023-10-05 09:00:00 Outpatient OSCAR CURTIS [facility] [id number] [facility] 2023-09-21 09:00:00 2023-09-21 09:00:00 Outpatient R OSCAR WEBSTER [facility] [id number] [facility] 2023-06-08 14:00:00 2023-06-08 14:00:00 Outpatient R MATHEW-ARIE S, LINH MATHEW-ARIE S, LINH [facility] [id number] [facility] 2023-06-08 10:00:00 2023-06-08 10:00:00 Outpatient R MATHEW-ARIE S, LINH MATHEW-ARIE S, LINH [facility] [id number] [facility] 2023-05-17 15:30:00 2023-05-17 15:30:00 Outpatient R RUDDY COLBERT CHERYAL [facility] [id number] [facility] 2023-04-30 16:00:00 2023-04-30 16:00:00 Outpatient R ERIN TILLEY [facility] [id number] [facility] 2023-04-27 13:00:00 2023-04-27 13:00:00 Outpatient ERIN KOO [facility] [id number] [facility] 2023-03-29 16:30:00 2023-03-29 16:37:41 Outpatient R RUDDY COLBERT CHERYAL [facility] [id number] [facility] 2023-03-29 16:30:00 2023-03-29 16:37:41 [facility] 1.2.840.114 350.1.13.10 4.2.7.2.686 [id number] [facility] 2023-02-07 13:00:00 2023-02-07 13:00:00 Outpatient R RUDDY COLBERT CHERYAL [facility] [id number] [facility] 2022-12-13 16:42:16 2022-12-13 16:42:16 Outpatient [facility] [id number] Moy Flynn 2022-12-13 15:15:00 2022-12-13 15:15:00 Outpatient R [facility] [id number] [facility] 2022-11-22 00:00:00 2022-11-22 00:00:00 Telephone Brittni Martínez [facility] 1.2.840.114 350.1.13.10 4.2.7.2.686 [id number] [facility] 2022-11-21 00:00:00 2022-11-21 00:00:00 Orders Only Doctor Unassigned, [place] [facility] 1.2.840.114 350.1.13.10 4.2.7.2.686 [id number] [id number] [facility] 2022-11-20 00:00:00 2022-11-20 00:00:00 Telephone Ruddy Colbert [facility] 1.2.840.114 350.1.13.10 4.2.7.2.686 [id number] [facility] 2022-11-16 00:00:00 2022-11-16 00:00:00 [facility] 1.2.840.114 350.1.13.10 4.2.7.2.686 [id number] [facility] 2022-11-15 14:30:00 2022-11-15 15:04:36 Outpatient R RUDDY COLBERT CHERYAL [facility] [id number] [facility] 2022-11-15 14:30:00 2022-11-15 15:04:36 Office Visit Ruddy Colbert [facility] 1.2.840.114 350.1.13.10 4.2.7.2.686 [id number] [facility] 2022-11-14 15:00:00 2022-11-14 15:16:26 Outpatient R RUDDY COLBERT CRISTINATYRONEHOLLYRUDDY TORO [facility] [id number] [facility] 2022-11-14 15:00:00 2022-11-14 15:16:26 [facility] 1.2840.114 350.1.13.10 4.2.7.2.686 [id number] 134 [id number] [facility] 2022-11-10 13:00:00 2022-11-10 13:04:39 [facility] [id number] [facility] 2022-11-10 13:00:00 2022-11-10 13:04:39 [facility] 1.0.114 350.1.13.10 4.2.7.2.686 [id number] 134 [id number] [facility] 2022-11-10 00:00:00 2022-11-10 00:00:00 Orders Only Doctor Unassigned, [place] [facility] 1.2840.114 350.1.13.10 4.2.7.2.686 [id number] [facility] 2020-11-02 00:00:00 2020-11-02 00:00:00 Patient Outreach Declan Fermin [facility] 1.840.114 350.1.13.10 4.2.7.2.686 [id number] [facility] 2020-01-07 09:23:30 2020-01-07 10:10:21 Office Visit Rashid Tovar [facility] DISPLAY DEPARTMENT MANAGER [facility] 1.2840.114 350.1.13.10 4.2.7.2.686 [id number] [facility] 2020-01-07 09:00:00 2020-01-07 09:00:00 Outpatient RASHID OLIVERA [facility] [id number] [facility] 2020-01-07 00:00:00 2020-01-07 00:00:00 Orders Only Doctor Unassigned, [place] [facility] 1.2840.114 350.1.13.10 4.2.7.2.686 [id number] [id number] [facility] 2019-12-16 09:15:00 2019-12-16 09:15:00 Outpatient RASHID OLIVERA [facility] [id number] [facility] 2019-12-16 07:34:01 2019-12-16 09:03:14 Telemedici ne Visit Rashid Tovar [facility] DISPLAY DEPARTMENT MANAGER [facility] & CHILD [facility] 1.2840.114 350.1.13.10 4.2.7.2.686 [id number] [facility] 2019-12-16 07:34:01 2019-12-16 09:03:14 Telemedici ne Visit Rashid Tovar [facility] DISPLAY DEPARTMENT MANAGER [facility] CHILD [facility] 1.2840.114 350.1.13.10 4.2.7.2.686 [id number] 2019-11-28 14:57:15 2019-11-28 15:27:42 Nurse Visit Visit, Qian Nurse Carla Rajan [facility] DISPLAY DEPARTMENT MANAGER [facility] CHILD [facility] 1.2.840.114 350.1.13.10 4.2.7.2.686 [id number] [facility] 2019-11-28 14:57:15 2019-11-28 15:27:42 Nurse Visit Visit, Qian Nurse [facility] DISPLAY DEPARTMENT MANAGER [facility] & CHILD [facility] 1.2.840.114 350.1.13.10 4.2.7.2.686 [id number] 2019-11-28 15:00:00 2019-11-28 15:00:00 Outpatient [facility]ILDA [facility] [id number] [facility] 2019-11-25 09:30:00 2019-11-25 09:30:00 Outpatient R UMMYAYASHANTCARLA [facility] [id number] [facility] 2019-11-25 09:15:00 2019-11-25 09:15:00 Outpatient R WISAMSHANTCARLA [facility] [id number] [facility] 2019-11-22 11:49:00 2019-11-24 12:16:00 Hospital Encounter [facility] 1.2.840.114 350.1.13.10 4.2.7.2.686 [id number] [facility] 2019-11-22 11:49:00 2019-11-24 12:16:00 Hospital Encounter [facility] 1.2.840.114 350.1.13.10 4.2.7.2.686 [id number] 2019-11-18 08:34:45 2019-11-18 08:55:27 Routine Visit Carla Rajan [facility] DISPLAY DEPARTMENT MANAGER [facility] & CHILD [facility] 1.2.840.114 350.1.13.10 4.2.7.2.686 [id number] [facility] 2019-11-18 08:34:45 2019-11-18 08:55:27 Routine Visit Carla Rajan KYJUAN DISPLAY DEPARTMENT MANAGER [facility]ILD [facility] 1.2.840.114 350.1.13.10 4.2.7.2.686 [id number] 2019-11-18 08:45:00 2019-11-18 08:45:00 Outpatient R CARLA RAJAN [facility] [id number] [facility] 2019-11-11 08:49:21 2019-11-11 09:26:07 Routine Visit Carla Rajan [facility] DISPLAY DEPARTMENT MANAGER [facility] CHILD [facility] 1.2.840.114 350.1.13.10 4.2.7.2.686 [id number] [facility] 2019-11-11 08:49:21 2019-11-11 09:26:07 Routine Visit Carla Rajan [facility] DISPLAY DEPARTMENT MANAGER [facility] & CHILD [facility] 1.2.840.114 350.1.13.10 4.2.7.2.686 [id number] 2019-11-11 09:00:00 2019-11-11 09:00:00 Outpatient R CARLA RAJAN [facility] [id number] [facility] 2019-10-27 09:42:46 2019-10-27 12:09:33 Routine Visit Carla Rajan [facility] DISPLAY DEPARTMENT MANAGER [facility] & CHILD [facility] 1.2.840.114 350.1.13.10 4.2.7.2.686 [id number] [facility] 2019-10-27 09:30:00 2019-10-27 09:30:00 Outpatient R CARLA RAJAN [facility] [id number] [facility] 2019-10-13 08:47:13 2019-10-13 11:29:01 Routine Visit Faculty, Leandro Cota [facility] DISPLAY DEPARTMENT MANAGER [facility] CHILD [facility] 1.2.840.114 350.1.13.10 4.2.7.2.686 [id number] [facility] 2019-10-13 09:00:00 2019-10-13 09:00:00 Outpatient R [facility] [id number] [facility] 2019-10-09 00:00:2019-10-09 00:00:00 Orders Only Doctor Unassigned, [place] [facility] 1.2.840.114 350.1.13.10 4.2.7.2.686 [id number] [facility] 2019-10-02 09:02:47 2019-10-02 09:32:54 Nurse Visit Visit, Qian Nurse Carla Rajan [facility] DISPLAY DEPARTMENT MANAGER [facility] CHILD [facility] 1.2.840.114 350.1.13.10 4.2.7.2.686 [id number] [facility] 2019-10-01 09:01:49 2019-10-01 10:01:49 Management 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 [employer] Visit Ultrasound, Carla Castillo [facility] DISPLAY DEPARTMENT MANAGER [facility] & CHILD [facility] 1.2.840.114 350.1.13.10 4.2.7.2.686 [id number] [facility] 2019-10-01 08:36:33 2019-10-01 08:41:17 Management Trainee Program Stores Visit Lab, Crala Roberts [facility] DISPLAY DEPARTMENT MANAGER [facility] CHILD [facility] 1.2.840.114 350.1.13.10 4.2.7.2.686 [id number] [facility] 2019-10-01 00:00:00 2019-10-01 00:00:00 Abstract Carla Rajan [facility] DISPLAY DEPARTMENT MANAGER [facility] CHILD [facility] 1.2.840.114 350.1.13.10 4.2.7.2.686 [id number] [facility] 2019-10-01 00:00:00 2019-10-01 00:00:00 Telephone Carla Rajan [facility] DISPLAY DEPARTMENT MANAGER [facility] CHILD [facility] 1.2.840.114 350.1.13.10 4.2.7.2.686 [id number] [facility] 2019-09-30 13:30:37 2019-09-30 14:59:32 Initial Visit Carla Rajan [facility] DISPLAY DEPARTMENT MANAGER [facility] 1..840.114 350.1.13.10 4.2.7.2.686 [id number] [facility] 2019-09-30 00:00:00 2019-09-30 00:00:00 Orders Only Doctor Unassigned, [place] [facility] 1..840.114 350.1.13.10 4.2.7.2.686 [id number] [facility] Results Test Description Test Time Test Comments Results Result Co mments Source [id number] 19:42:00* Test Item Value Reference Range Interpretation Comme nts POCT PREG (test code = 1605) Negative On board controls acceptable with C Line (test code = 3574) Yes POCT PREG LOT # (test code = 3575) POCT PREG TEST DATE ( test code = 3576) [facility] [id number] 14:33:00* Test Item Value Reference Range Interpretation Comme nts POCT PREG (test code = 1605) Negative On board controls acceptable with C Line (test code = 3574) Yes POCT PREG LOT # (test code = 3575) POCT PREG TEST DATE ( test code = 3576) [id number] 14:33:00* Test Item Value Reference Range Interpretation Comme nts POCT PREG (test code = 1605) Negative On board controls acceptable with C Line (test code = 3574) Yes POCT PREG LOT # (test code = 3575) POCT PREG TEST DATE ( test code = 3576) [facility] - SYPHILIS [id number]/[id number] 15:38:00* Test Item Value Reference Range Interpretation Comme nts Syphilis IgG/IgM (test code = 04115-7) Non-reactive Non-reactive JOSE RAFAEL (test code = JOSE RAFAEL) Non-reactive - No serologic evidence of T. pallidum infection. Cannot exclude incubating or early syphilis. Submit a second specimen in 2-4 weeks if syphilis is clinically suspected. Equivocal - Further testing to follow. Reactive - Further testing to follow. Lab Interpretation (test code = 24231-9) [facility] WITH [id number] 09:57:00* Test Item Value Reference Range Interpretation Comme nts WBC (test code = 6690-2) See_Comment H [Automated message] The system which generated this result transmitted reference range: 4.50 - 13.50 10*3/?L. The reference range was not used to interpret this result as normal/abnormal. RBC (test code = 789-8) See_Comment L [Automated message] The system which generated this result transmitted reference range: 4.10 - 5.10 10*6/?L. The reference range was not used to interpret this result as normal/abnormal. HGB (test code = 718-7) 10.3 g/dL 12-16 L HCT (test code = 4544-3) 30.9 % 36-45 L MCV (test code = 787-2) 90.6 fL 78-95 MCH (test code = 785-6) 30.2 pg 26-32 MCHC (test code = 786-4) 33.3 g/dL 32-36 RDW-SD (test code = 98192-3) 44.9 fL 38.5-49 RDW-CV (test code = 788-0) 13.5 % 11.5-14 PLT (test code = 777-3) See_Comment [Automated message] The system which generated this result transmitted reference range: 135 - 361 10*3/?L. The reference range was not used to interpret this result as normal/abnormal. MPV (test code = 00746-8) 11.5 fL 9.4-13.3 NRBC/100 WBC (test code = 6506424126) See_Comment [Automated message] The system which generated this result transmitted reference range: 0.0 - 10.0 /100 WBCs. The reference range was not used to interpret this result as normal/abnormal. NRBC x10^3 (test code = 6612246045) <0.01 See_Comment [Automated message] The system which generated this result transmitted reference range: 10*3/?L. The reference range was not used to interpret this result as normal/abnormal. GRAN MAT (NEUT) % (test code = 770-8) 82.3 % IMM GRAN % (test code = 5939455559) 1.00 % LYMPH % (test code = 736-9) 10.2 % MONO % (test code = 5905-5) 5.6 % EOS % (test code = 713-8) 0.5 % BASO % (test code = 706-2) 0.4 % GRAN MAT x10^3(ANC) (test code = 6001151317) 14.09 10*3/uL 1.5-10.3 H IMM GRAN x10^3 (test code = 7647769639) 0.17 10*3/uL 0-0.06 H LYMPH x10^3 (test code = 731-0) 1.74 10*3/uL 0.7-7.4 MONO x10^3 (test code = 742-7) 0.96 10*3/uL 0-0.5 H EOS x10^3 (test code = 711-2) 0.09 10*3/uL 0-0.4 BASO x10^3 (test code = 704-7) 0.06 10*3/uL 0-0.1 BANDS (test code = 3043817360) Increased A Lab Interpretation (test code = 88597-1) Abnormal [facility]) IMMUNE [id number] 04:07:12* Test Item Value Reference Range Interpretation Comme nts RHIG CANDIDATE? (test code = 5055) No- see comment Patient is not a candidate for RhIg- Patient is Rh Positive.Performed at [facility] Laboratory Services - [facility] Blood [address] [place] [id number] Free: [phone] No. [id number] [facility] Center[facility]ORD [id number] 23:57:00* Test Item Value Reference Range Interpretation Comme nts BASE EXCESS, CORD (test code = 5484366551) mEq/L AC PH, CORD (BEAKER) (test code = 3257353759) 7.18-7.38 PC02, CORD (test code = 0650396293) See_Comment H [Automated messa ge] The system which generated this result transmitted reference range: 32 - 66 mmHg. The reference range was not used to interpret this result as normal/abnormal. PO2, CORD (test code = 7836522690) See_Comment [Automated messa ge] The system which generated this result transmitted reference range: 10 - 30 mmHg. The reference range was not used to interpret this result as normal/abnormal. BICARBONATE, CORD (test code = 4468878255) See_Comment H [Automated me ssage] The system which generated this result transmitted reference range: 17 - 27 mEq/L. The reference range was not used to interpret this result as normal/abnormal. Lab Interpretation (test code = 11194-2) Abnormal [facility] Center[facility]ORD [id number] 23:52:00* Test Item Value Reference Range Interpretation Comme nts VENOUS BASE EXCESS, CORD (test code = 9459875062) mEq/L VENOUS PH, CORD (test code = 2344410431) 7.25-7.45 VENOUS PC02, CORD (test code = 7939478728) See_Comment H [Automated me ssage] The system which generated this result transmitted reference range: 27 - 49 mmHg. The reference range was not used to interpret this result as normal/abnormal. VENOUS PO2, CORD (test code = 6805984151) See_Comment [Automated me ssage] The system which generated this result transmitted reference range: 17 - 41 mmHg. The reference range was not used to interpret this result as normal/abnormal. VENOUS BICARBONATE, CORD (test code = 3484502400) See_Comment [Automa gianna message] The system which generated this result transmitted reference range: 12 - 29 mEq/L. The reference range was not used to interpret this result as normal/abnormal. Lab Interpretation (test code = 93667-7) Abnormal [facility] CenterHepatitis B Surface [id number] 22:06:00 * Test Item Value Reference Range Interpretation Comme nts HBsAg Semi-Quantitative (orestes t code = 5195-3) Negative Negative [facility] - ONCE [id number] 21:39:44 * Test Item Value Reference Range Interpretation Comme nts ABO & RH (test code = 20) O POSITIVE Performed at [facility] B Laboratory Services - [facility] Blood [address] [id number] Free: [phone] No. [id number] IAT (test code = 1185) Negative Performed at [facility] B Laboratory Services - [facility] [address] [address] [id number] Free: [phone] No. [id number] [facility] [id number] 18:00:00* Test Item Value Reference Range Interpretation Comme nts SARS-CoV-2 (test code = 13825-2) Not Detected Not Detected JOSE RAFAEL (test code = JOSE RAFAEL) ID NOW COVID-19 As say is an isothermal nucleic acid amplification test intended for the qualitative detection of nucleic acid from SARS-CoV-2 viral RNA in nasopharyngeal (FRONT CLERK) specimens. It is used under Emergency Use [...] patient testing if clinically indicated. Lab Interpretation (test code = 47909-3) Normal [facility] [id number] 13:49:00* Test Item Value Reference Range Interpretation Comme nts POCT U SP GRAV (test code = 3255) . 1.005-1.025 POCT PH U (test code = 3254) . 5-8 POCT U LEUK EST (test code = 3263) . Negative - N egative POCT U NIT (test code = 3262) . Negative - Negati ve POCT U PROT (test code = 3259) Trace Negative - Negat hussain POCT U GLU (test code = 3256) Neg Negative - Negati ve POCT U KETONE (test code = 3258) . Negative - Neg ative POCT U UROBILI (test code = 3260) . 0.2-1 POCT U BILI (test code = 3261) . Negative - Negat hussain POCT U BLD (test code = 3257) . Negative - Negati ve POCT U COLOR (test code = 3266) POCT U APPEAR (test code = 3267) [facility] URINALYSIS W SPECIFIC [id number] 14:00:00* Test Item Value Reference Range Interpretation Comme nts POCT U SP GRAV (test code = 3255) . 1.005-1.025 POCT PH U (test code = 3254) . 5-8 POCT U LEUK EST (test code = 3263) . Negative - N egative POCT U NIT (test code = 3262) . Negative - Negati ve POCT U PROT (test code = 3259) Trace Negative - Negat hussain POCT U GLU (test code = 3256) Neg Negative - Negati ve POCT U KETONE (test code = 3258) . Negative - Neg ative POCT U UROBILI (test code = 3260) . 0.2-1 POCT U BILI (test code = 3261) . Negative - Negat hussain POCT U BLD (test code = 3257) . Negative - Negati ve POCT U COLOR (test code = 3266) POCT U APPEAR (test code = 3267) [facility] URINALYSIS W SPECIFIC [id number] 14:00:00* Test Item Value Reference Range Interpretation Comme nts POCT U SP GRAV (test code = 3255) . 1.005-1.025 POCT PH U (test code = 3254) . 5-8 POCT U LEUK EST (test code = 3263) . Negative - N egative POCT U NIT (test code = 3262) . Negative - Negati ve POCT U PROT (test code = 3259) Trace Negative - Negat hussain POCT U GLU (test code = 3256) Neg Negative - Negati ve POCT U KETONE (test code = 3258) . Negative - Neg ative POCT U UROBILI (test code = 3260) . 0.2-1 POCT U BILI (test code = 3261) . Negative - Negat hussain POCT U BLD (test code = 3257) . Negative - Negati ve POCT U COLOR (test code = 3266) POCT U APPEAR (test code = 3267) [facility] URINALYSIS W SPECIFIC [id number] 17:09:00* Test Item Value Reference Range Interpretation Comme nts POCT U SP GRAV (test code = 3255) . 1.005-1.025 POCT PH U (test code = 3254) . 5-8 POCT U LEUK EST (test code = 3263) . Negative - N egative POCT U NIT (test code = 3262) . Negative - Negati ve POCT U PROT (test code = 3259) Trace Negative - Negat hussain POCT U GLU (test code = 3256) Neg Negative - Negati ve POCT U KETONE (test code = 3258) . Negative - Neg ative POCT U UROBILI (test code = 3260) . 0.2-1 POCT U BILI (test code = 3261) . Negative - Negat hussain POCT U BLD (test code = 3257) . Negative - Negati ve POCT U COLOR (test code = 3266) POCT U APPEAR (test code = 3267) [facility] URINALYSIS W/O SPECIFIC [id number] 19:35:00* Test Item Value Reference Range Interpretation Comme nts POCT PH U (test code = 3254) 5 mg/dl 5-8 POCT U LEUK EST (test code = 3263) 1+ Negative - Negative POCT U NIT (test code = 3262) Neg Negative - Negati ve POCT U PROT (test code = 3259) Trace Negative - Negat hussain POCT U GLU (test code = 3256) Neg Negative - Negati ve POCT U KETONE (test code = 3258) None Negative - Neg ative POCT U BLD (test code = 3257) Neg Negative - Negati ve [facility] URINALYSIS W/O SPECIFIC [id number] 19:35:00* Test Item Value Reference Range Interpretation Comme nts POCT PH U (test code = 3254) 5 mg/dl 5-8 POCT U LEUK EST (test code = 3263) 1+ Negative - Negative POCT U NIT (test code = 3262) Neg Negative - Negati ve POCT U PROT (test code = 3259) Trace Negative - Negat hussain POCT U GLU (test code = 3256) Neg Negative - Negati ve POCT U KETONE (test code = 3258) None Negative - Neg ative POCT U BLD (test code = 3257) Neg Negative - Negati ve [facility] URINALYSIS W/O SPECIFIC [id number] 19:35:00* Test Item Value Reference Range Interpretation Comme nts POCT PH U (test code = 3254) 5 mg/dl 5-8 POCT U LEUK EST (test code = 3263) 1+ Negative - Negative POCT U NIT (test code = 3262) Neg Negative - Negati ve POCT U PROT (test code = 3259) Trace Negative - Negat hussain POCT U GLU (test code = 3256) Neg Negative - Negati ve POCT U KETONE (test code = 3258) None Negative - Neg ative POCT U BLD (test code = 3257) Neg Negative - Negati ve [facility] URINALYSIS W/O SPECIFIC [id number] 19:35:00* Test Item Value Reference Range Interpretation Comme nts POCT PH U (test code = 3254) 5 mg/dl 5-8 POCT U LEUK EST (test code = 3263) 1+ Negative - Negative POCT U NIT (test code = 3262) Neg Negative - Negati ve POCT U PROT (test code = 3259) Trace Negative - Negat hussain POCT U GLU (test code = 3256) Neg Negative - Negati ve POCT U KETONE (test code = 3258) None Negative - Neg ative POCT U BLD (test code = 3257) Neg Negative - Negati ve [facility] [id number] 19:34:00* Test Item Value Reference Range Interpretation Comme nts POCT PREG (test code = 1605) Positive On board controls acceptable with C Line (test code = 3574) Yes POCT PREG LOT # (test code = 3575) POCT PREG TEST DATE ( test code = 3576) [facility] [id number] 19:34:00* Test Item Value Reference Range Interpretation Comme nts POCT PREG (test code = 1605) Positive On board controls acceptable with C Line (test code = 3574) Yes POCT PREG LOT # (test code = 3575) POCT PREG TEST DATE ( test code = 3576) [facility] [id number] 19:34:00* Test Item Value Reference Range Interpretation Comme nts POCT PREG (test code = 1605) Positive On board controls acceptable with C Line (test code = 3574) Yes POCT PREG LOT # (test code = 3575) POCT PREG TEST DATE ( test code = 3576) [facility] [id number] 19:34:00* Test Item Value Reference Range Interpretation Comme nts POCT PREG (test code = 1605) Positive On board controls acceptable with C Line (test code = 3574) Yes POCT PREG LOT # (test code = 3575) POCT PREG TEST DATE ( test code = 3576) [facility]
--- NOTE | 2024-01-16 20:19 | RAD REPORT ---
EXAM DESCRIPTION: RAD - Chest Single View - 01/16/2024 8:00 pm CLINICAL HISTORY: Cough;Congestion Chest pain. COMPARISON: <Comparisons> FINDINGS: Portable technique limits examination quality. Small opacity seen in the right lung base compatible with developing pneumonia. The lungs are otherwi se clear. The heart is normal in size. No fracture seen.
[2024-01-16 20:22] LABS: SARS-CoV-2 Antigen CONTROL BLUE LINE VIS/BG OK; SARS-CoV-2 Antigen Rapid Res Negative (Negative)
--- NOTE | 2024-01-16 20:26 | ER ---
Nurse's Notes [facility] Name: Atiya Castellanos Age: 23 yrs Sex: Female : 2000 Arrival Date: 01/16/2024 Time: 19:17 Bed DX2 Private MD: Diagnosis: Pneumonia, unspecified organism Presentation: 01/15 19:41 Chief complaint: Patient states: Cough, congestion, headache, dizzy, body aches, sore nj1 throat for 4 days. Coronavirus screen: Vaccine status: Patient reports being unvaccinated. Ebola Screen: Patient denies travel to an Ebola-affected area in the 21 days before illness onset. Initial Sepsis Screen: Does the patient meet any 2 criteria? No. Patient's initial sepsis screen is negative. Does the patient have a suspected source of infection? No. Patient's initial sepsis screen is negative. Risk Assessment: Do you want to hurt yourself or someone else? Patient reports no desire to harm self or others. Onset of symptoms was January 12, 2024. 19:41 Method Of Arrival: Ambulatory [facility] 19:41 Acuity: CHRIS 3 nj Triage Assessment: 19:44 General: Appears in no apparent distress. uncomfortable, Behavior is calm, cooperative, nj1 appropriate for age. Pain: Complains of pain in generalized Pain currently is 8 out of 10 on a pain scale. Respiratory: No deficits noted. Reports cough that is. Historical: - Allergies: 19:43 Soy; nj1 19:43 Milk/dairy products; ga1 - PMHx: 19:43 Bipolar disorder; [facility] - PSHx: 19:43 eye; section; nj1 - Immunization history:: Client reports having NOT received the Covid vaccine. - Infectious Disease History:: Denies. - Social history:: Smoking status: Patient denies any tobacco usage or history of. Screenin:34 [facility] ED Fall Risk Assessment (Adult) History of falling in the last 3 months, jb4 including since admission No falls in past 3 months (0 pts) Confusion or Disorientation No (0 pts) Intoxicated or Sedated No (0 pts) Impaired Gait No (0 pts) Mobility Assist Device Used No (0 pt) Altered Elimination No (0 pt) Score/Fall Risk Level 0 - 2 = Low Risk Oriented to surroundings, Maintained a safe environment. Abuse screen: Denies threats or abuse. Nutritional screening: No deficits noted. Tuberculosis screening: No symptoms or risk factors identified. Assessment: 20:34 Reassessment: Patient appears in no apparent distress at this time. Patient and/or jb4 family updated on plan of care and expected duration. Pain level reassessed. Patient is alert, oriented x 3, equal unlabored respirations, skin warm/dry/pink. Vital Signs: 19:41 BP 107 / 71; Pulse 73; Resp 16; Temp 98.3(O); Pulse Ox 98% on R/A; Weight 58.97 kg; nj1 Height 5 ft. 0 in. ; Pain 8/10; 19:41 Body Mass Index 25.39 (58.97 kg, 152.4 cm) [facility] 19:41 Pain Scale: Adult [facility] ED Course: 19:22 Patient arrived in ED. 2 19:23 Sandy Tang FNP-C [facility] kb 19:23 Lisandro Judd MD is Attending Physician. kb 19:43 Triage completed. nj1 19:44 Arm band placed on right wrist. nj1 19:53 Strep Sent. nj1 19:53 SARS-COV-2 Antigen Rapid Sent. nj1 19:53 Flu Sent. nj1 20:02 Chest Single View XRAY In Process Unspecified. EDMS 20:34 Patient has correct armband on for positive identification. Bed in low position. Call jb4 light in reach. Side rails up X 1. Provided Education on: Discharge instructions.. 20:34 No provider procedures requiring assistance completed. Patient did not have IV access jb4 during this emergency room visit. Administered Medications: 20:33 Drug: AZITHromycin PO 500 mg PO once Route: PO; jb4 Medication: 20:34 VIS not applicable for this client. jb4 Outcome: 20:25 Discharge ordered by . kb 20:34 Discharged to home ambulatory, with family, jb4 20:34 Condition: stable 20:34 Discharge instructions given to patient, Instructed on discharge instructions, follow up and referral plans. medication usage, Demonstrated understanding of instructions, follow-up care, medications, 20:36 Patient left the ED. jb4 Signatures: Dispatcher [employer] EDNJ Sandy Tang FNP-C FNP-Ckb Bryson, James, RN RN jb4 Estefany Hernandez RN RN njLucy Dukes 2
--- NOTE | 2024-01-16 20:26 | EDPHYS ---
Physician Documentation [facility] Name: Atiya Castellanos Age: 23 yrs Sex: Female : 2000 Arrival Date: 01/16/2024 Time: 19:17 Bed DX2 Private MD: ED Physician Lisandro Judd HPI: 01/15 20:23 This 23 yrs old Female presents to ER via Ambulatory with complaints of Cough, kb Congestion, Headache, Flu Symptoms. 20:23 Pt is a 23 year old female who presents for cough, congestion, sore throat, headache, kb fatigue, malaise and weakness that started 4 days ago. denies fever, shortness of breath. Historical: - Allergies: 19:43 Soy; nj1 19:43 Milk/dairy products; nj1 - PMHx: 19:43 Bipolar disorder; nj1 - PSHx: 19:43 eye; section; nj1 - Immunization history:: Client reports having NOT received the Covid vaccine. - Infectious Disease History:: Denies. - Social history:: Smoking status: Patient denies any tobacco usage or history of. ROS: 20:23 Constitutional: As per HPI kb Exam: 20:23 Constitutional: This is a well developed, well nourished patient who is awake, alert, kb and in no acute distress. Head/Face: Normocephalic, atraumatic. ENT: Moist Mucous membranes Cardiovascular: Regular rate Respiratory: Respirations even and unlabored. No increased work of breathing. Talking in full sentences Abdomen/GI: Soft, non-tender. No distention Skin: Warm, dry with normal turgor. Normal color. MS/ Extremity: Pulses equal, no cyanosis. Neurovascular intact. Full, normal range of motion. Neuro: Awake and alert, GCS 15, oriented to person, place, time, and situation. Moves all extremities. Normal gait. Vital Signs: 19:41 BP 107 / 71; Pulse 73; Resp 16; Temp 98.3(O); Pulse Ox 98% on R/A; Weight 58.97 kg; nj1 Height 5 ft. 0 in. ; Pain 8/10; 19:41 Body Mass Index 25.39 (58.97 kg, 152.4 cm) banner 19:41 Pain Scale: Adult banner MDM: 19:23 Patient medically screened. kb 20:23 Differential Diagnosis: Bronchitis Influenza Upper Respiratory Infection Pneumonia kb Other strep. Data reviewed: vital signs, nurses notes. Counseling: I had a detailed discussion with the patient and/or guardian regarding the historical points, exam findings, and any diagnostic results supporting the discharge/admit diagnosis, lab results, radiology results, the need for outpatient follow up, a family practitioner, to return to the emergency department if symptoms worsen or persist or if there are any questions or concerns that arise at home. 01/15 19:43 Order name: Flu; Complete Time: 20:23 kb 01/15 19:43 Order name: SARS-COV-2 Antigen Rapid; Complete Time: 20:22 kb 01/15 19:43 Order name: Strep; Complete Time: 20:20 kb 01/15 20:15 Order name: Throat Culture EDMS 01/15 19:43 Order name: Chest Single View XRAY; Complete Time: 20:20 kb Administered Medications: 20:33 Drug: AZITHromycin PO 500 mg PO once Route: PO; jb4 Disposition Summary: 01/16/24 20:25 Discharge Ordered Notes: Location: Home kb Condition: Stable kb Diagnosis - Pneumonia, unspecified organism kb Followup: kb - With: Emergency Department - When: As needed - Reason: Worsening of condition Followup: kb - With: Private Physician - When: 2 - 3 days - Reason: Recheck today's complaints, Continuance of care, Re-evaluation by your physician Discharge Instructions: - Discharge Summary Sheet kb - Community-Acquired Pneumonia, Adult, [id number] kb Forms: - Medication Reconciliation Form kb - Antibiotic Education kb - Prescription Opioid Use kb - Patient Portal Instructions kb - Leadership Thank You Letter kb - Work release form jb4 Prescriptions: - Zithromax 500 mg Oral Tablet - take 1 tablet ORAL route once daily for 5 days; 5 tablet; Refills: 0, Product kb Selection Permitted Signatures: Dispatcher [employer] EDMS Sandy Tang, DWAYNE-Curt RICE-Jr Carroll, RN RN jb4 Estefany Hernandez RN RN nj1 Corrections: (The following items were deleted from the chart) 19:43 19:43 Influenza Screen (A \T\ B)+BA.LAB.BRZ ordered. EDMS EDMS 19:43 19:43 SARS-COV-2 Antigen Rapid+I.LAB.BRZ ordered. EDMS EDMS 19:43 19:43 Group A Streptococcus Rapid Sc+BA.LAB.BRZ ordered. EDMS EDMS :43 Chest Single View+RAD.RAD.BRZ ordered. EDMS EDMS
[2024-01-16] MEDS ORDERED: AZITHROMYCIN 250 MG TAB ONE (20:29)
[2024-01-16 21:08] VITALS: BP 107/71; TEMP 98.3; O2SAT 98
== END 2024-01-16 20:36 | disposition home or self-care (01) ==
LOC: ER 19:17
DX: J18.9 Pneumonia, unspecified organism (principal); Z11.52 Encounter for screening for COVID-19
CPT/HCPCS: 36415; 71045; 87070; 87081; 87804; 87811; 99283